=== PATIENT | male | born 1940 | race Caucasian/White ===

== ENCOUNTER 2022-01-20 07:11 | Outpatient (RCR) | payer MEDICARE, SELFPAY ==
[2021-10-25 13:18] VITALS: BMI 32.4
--- NOTE | 2021-11-23 12:41 | WPDWOUNDNOTE ---
Wound Care Note Date/Time: Backdated to date and time seen : 11/18/21 at 09:41 History: This is a 81 yo M with a history of diabetes mellitus, hyperlipidemia, chronic constipation, and a pilonidal cyst. Wound history: Jim was referred to our office on 09/06/21 at the request of Dr. Gilbert for evaluation of a pilonidal cyst. He underwent I&D of pilonidal cyst in the office at that appointment by Dr. Lagunas. He has continued to be followed in our office for wound care following the I&D. He was last seen by Dr. Lagunas on 10/18/21 in our office and has now been set up to be followed in the wound clinic. He presents today for his second visit to the wound clinic for a wound check. He denies any new complaints. He states he is avoiding trying to sit or have pressure to this area for an extended period of time. He seems to be very active and admits to being outside a lot lately in the heat doing yard work. He reports still applying gentamicin ointment and covering with mepilex transfer once daily. He has no new complaints and does not notice a change in his drainage. He denies any pain in this area unless he is sitting directly on the wound. He does report that he has been following his PCP for his diabetes and his Hgb A1C has recently gone up. In review of his chart, his hgb A1C was 7 in March and has gone up to 7.8 in July and October of this year. This past week, his PCP increased his metformin dose and he continues to take the same dose of Jardiance. Wound approximation: No Wound width: 2.8 cm Wound length: 1.5 cm Wound depth: 0..3 cm Drainage: Serosanguineous Surrounding tissue appearance: mildly pink but otherwise healthy, no erythema Tunneling: None Percentage granulation tissue: 100% Dressings: Gentamicin ointment applied to wound and covered with Mepilex transfer dressing Assessment and Plan Assessment and plan (1) Open wound of buttock: Qualifiers: Encounter type: subsequent encounter Laterality: right Qualified Code(s): S31.819D - Unspecified open wound of right buttock, subsequent encounter Code(s): S31.809A - Unspecified open wound of unspecified buttock, initial encounter Status: Acute Assessment and Plan: Open wound appears stable but is not healing as you would expect. There is no signs of infection. The entire wound bed appears to be granulating, but the wound is slightly larger than it was on his previous visit. He has been more active lately outside in the heat. We discussed proper wound care and trying to avoid friction and pressure to this area. If he is noticing more drainage, then trying to keep this dry with gauze over the transfer dressing that could be changed more frequently. Will continue current dressing changes with gentamicin and mepilex transfer being changed daily. Will have him follow-up in the wound clinic again in [address] Lagunas in 1 month. If there are any concerns sooner, please call. (2) Type 2 diabetes mellitus without complications: Qualifiers: Diabetes mellitus continuous churn buttermaker insulin use: without jail use Qualified Code(s): E11.9 - Type 2 diabetes mellitus without complications Code(s): E11.9 - Type 2 diabetes mellitus without complications Status: Acute Assessment and Plan: Follow-up with PCP for management. Review of Systems Review of Systems: All systems reviewed & are unremarkable except as noted in HPI and below Exam Const: General: comfortable and no acute distress Orientation/consciousness: patient oriented x3 Skin: Other: Open wound just below the coccyx and extending to the right of the gluteal crease with entire wound bed containing pink granulation tissue. There is a small area at the cephalad edge of the wound that shows some epithelialization, although the measurements are just slightly bigger than his last visit (1.5 x 2.8 x 0.3 cm on 11/23 and was 1.4 x 2 x 0.3 cm on 10/25). No purulent drainage or signs of infecti
--- NOTE | 2021-12-16 16:57 | P.PNWOUND_ITS ---
Wound Care Note Date/Time: 12/16/21 16:57 History: Patient underwent office incision and drainage of pilonidal cyst to 28 in 2021. There was abundant granulation tissue present in the wound bed but very little hair or foreign material. He is a diabetic. Wound history: Patient was on silver gel dressing changes at home and several office visits with failure of the wound to heal. He was referred to the Wound Clinic nurses and has been seen in the Wound Clinic since 10/25/2021. Initially the silver gel was changed to gentamicin ointment. Wound still was not healing and at his 12/02/2021 visit he was changed to mupirocin ointment with Mepilex transfer and dry gauze daily. Wound approximation: No Wound width: 2.1 cm Wound length: 1.5 cm Wound depth: 0.4 cm Drainage: Serosanguineous Surrounding tissue appearance: Macerated with erythema suggestive of candidiasis Tunneling: None Percentage granulation tissue: 100 Treatment/Procedures: Cleanse slough with a curette and wipe off exudate with peroxide Dressings: Treat periwound skin with Aloe [place] triple care antifungal cream. Continue mupirocin 2 wound with Mepilex transfer and dry gauze. Assessment and Plan Assessment and plan (1) Open wound of buttock: Qualifiers: Encounter type: subsequent encounter Laterality: right Qualified Code(s): S31.819D - Unspecified open wound of right buttock, subsequent encounter Code(s): S31.809A - Unspecified open wound of unspecified buttock, initial encounter Status: Acute Assessment and Plan: Continue mupirocin to wound and treat skin around wound with Mary vest a triple care antifungal cream. Recheck in wound clinic in 2 weeks. (2) Pilonidal cyst: Code(s): L05.91 - Pilonidal cyst without abscess Status: Acute Assessment and Plan: I&D 09/06/2021 with chronic wound resulting. (3) Type 2 diabetes mellitus without complications: Qualifiers: Diabetes mellitus senior living insulin use: without senior living use Qualified Code(s): E11.9 - Type 2 diabetes mellitus without complications Code(s): E11.9 - Type 2 diabetes mellitus without complications Status: Acute Review of Systems Review of Systems: All systems reviewed & are unremarkable except as noted in HPI and below (Wound care note) Exam Back/Spine/Pelvis: Sacrum: no erythema, no swelling, tenderness and other (Open wound as described above with macerated skin)
--- NOTE | 2022-01-20 14:40 | P.PNWOUND_ITS ---
Wound Care Note Date/Time: 01/20/22 08:40 History: Patient presented September 06 with drainage and some open areas on the back in the area of the tailbone. These were superficial open areas with cloudy drainage. They extended 2.8 cm to the right of midline. In the office that day , the overlying skin was excised and granulation tissue underneath was noted. The wound bed was treated with silver nitrate and dressed with silver gel. Initial impression was that this was a pilonidal cyst which was I indeed. Patient initially who was treated with silver gel and gauze. October 11 Mepilex transfer was added to the silver gel. Silver gel was changed to gentamicin and Mepilex daily on November 18. The wound continued to fail to heal and was started on mupirocin with Mepilex transfer and gauze daily starting December 02. Patient is diabetic but has been under reasonable control. Wound history: I&D as pilonidal cyst 09/06/2021. Wound has failed to heal. Currently treating with mupirocin to wound bed with Mepilex transfer and dry gauze daily since December 02. His periwound skin had some evidence of yeast and aloe [place] triple antibiotic fungal cream was started. This has gone on to heal and is no longer being used. Wound approximation: Yes Wound width: 2.8 cm Wound length: to 0.5 cm Wound depth: 0.6 cm Drainage: pink serosanguineous Surrounding tissue appearance: clean and dry Tunneling: none Percentage granulation tissue: 100 Treatment/Procedures: no procedures Dressings: continue mupirocin and Mepilex transfer with dry gauze daily. Assessment and Plan Assessment and plan (1) Open wound of buttock: Qualifiers: Encounter type: subsequent encounter Laterality: right Qualified Code(s): S31.819D - Unspecified open wound of right buttock, subsequent encounter Code(s): S31.809A - Unspecified open wound of unspecified buttock, initial encounter Status: Acute Assessment and Plan: wound initially thought to be a pilonidal cyst but has failed to heal despite multiple attempts at wound healing. I will go ahead and get a pelvic CT scan to evaluate for an underlying source of nonhealing. Other possibility is a neoplastic process. Will arrange outpatient incisional biopsy once the CT scan has been done. With these results, will redirect wound healing strategy as the new information would suggest. (2) Type 2 diabetes mellitus without complications: Qualifiers: Diabetes mellitus buttermaker continuous churn insulin use: without fdc use Qualified Code(s): E11.9 - Type 2 diabetes mellitus without complications Code(s): E11.9 - Type 2 diabetes mellitus without complications Status: Acute Assessment and Plan: Due to get a hemoglobin A1c at the end of January. Last 1 was in October and was 7.8. Review of Systems Review of Systems: All systems reviewed & are unremarkable except as noted in HPI and below ( Wound care note) Constitutional: Constitutional: Denies chills, Denies fever(s) and Denies headache(s) Exam Back/Spine/Pelvis: Coccyx: Other pelvic findings ( wound with granulation tissue but no evidence of healing. tender)
== END 2022-01-23 23:59 | disposition home or self-care (01) ==
LOC: ANHWOC 07:11
PROVIDERS: PCP Family Medicine; Visit Provider Surgery
DX: S31.819D Unspecified open wound of right buttock, subsequent encounter (principal)
CPT/HCPCS: 87070; 87205; 99212; 99213; A9270; G0463

== ENCOUNTER → 2022-01-26 12:56 | Outpatient (CLI) | payer MEDICARE, SELFPAY ==
--- NOTE | ~2022-01-26 | CT_ITS ---
CT OF PELVIS EXAMINATION: CT pelvis w con DATE: 01/26/2022 13:38 INDICATION: Nonhealing coccygeal wound. TECHNIQUE: Computed tomography (CT) of the pelvis was performed without intravenous contrast. Automat ed exposure control and iterative reconstruction technique were employed. The dose-length product was 672.40 mGy-cm. COMPARISON: None FINDINGS: Limitations: None Bones: The included osseous structures are within normal limits. There are no erosive or destructive bony lesions. Soft Tissues: Simple left renal cyst. Bilateral fat-containing inguinal hernias. Diffuse atherosclero tic calcification. Bladder wall thickening likely due to outlet compromise from prostatomegaly. Fluid: No significant fluid within the joint capsule or surrounding bursal spaces. IMPRESSION: No CT evidence of wound infection, soft tissue abscess, decubitus ulcer, or osteomyelitis. Reviewed, dictated and finalized at location K. IMPRESSION: No CT evidence of wound infection, soft tissue abscess, decubitus ulcer, or ost eomyelitis.
[2022-01-26 13:23] LABS: Estimated Glomerular Filt Rate > 60
== END ==
PROVIDERS: PCP Family Medicine; Visit Provider Surgery
DX: T81.89XA Other complications of procedures, not elsewhere classified, initial encounter (principal); K40.90 Unilateral inguinal hernia, without obstruction or gangrene, not specified as recurrent; N28.1 Cyst of kidney, acquired
CPT/HCPCS: 72193; Q9967

== ENCOUNTER 2022-01-31 11:21 | Outpatient (CLI) | payer MEDICARE, SELFPAY ==
--- NOTE | 2022-01-31 11:44 | ECG_ITS ---
Measurements Intervals Aspers Rate: 58 P: 90 NM: 181 QRS: -4 QRSD: 138 T: -3 QT: 457 QTc: 451 Interpretive Statements SINUS BRADYCARDIA VENTRICULAR PREMATURE COMPLEX RIGHT BUNDLE BRANCH BLOCK ABNORMAL ECG Electronically Signed On 01-31-2022 12:20:36 CDT by Russell Winston D.O.
[2022-01-31 12:18] LABS: Anion Gap 11 mmol/L (8-16); Blood Urea Nitrogen 17 mg/dL (9-20); Carbon Dioxide 25 mmol/L (22-30); Chloride 104 mmol/L (98-107); Estimated Glomerular Filt Rate > 60; Glucose 152 mg/dL (65-110); Potassium 4.8 mmol/L (3.4-5.0); Sodium 140 mmol/L (137-145)
== END 2022-01-31 11:22 | disposition home or self-care (01) ==
LOC: ANHSURGERY 11:26
PROVIDERS: Anesthesiology; PCP Family Medicine; Visit Provider Surgery
DX: Z01.818 Encounter for other preprocedural examination (principal); I10 Essential (primary) hypertension; R00.1 Bradycardia, unspecified; I45.10 Unspecified right bundle-branch block
CPT/HCPCS: 36415; 80048; 93005

== ENCOUNTER 2022-02-02 00:32 | Day surgery (SDC) | payer MEDICARE, SELFPAY ==
--- NOTE | 2022-01-27 12:25 | PC.NURSE ---
Report to the Outpatient Waiting Room, entrance under the green pavilion located off [facility], at time __1100 on date ___02/02/22____. OR Time: _1300 . - You and your visitor will be asked a series of questions to screen for COVID 19 for your protection. - Only one visitor is allowed at this time. - The patient visitor is requested to leave or wait in car when not with patient. - A mask is required within the hospital. Patients may have clear liquids (water, carbonated beverages, clear teas, apple juice) until 3 hours prior to surgery with a maximum of 20 ounces. - No food from midnight until time of surgery - Infants may have breast milk until 4 hours before surgery, infant formula 6 hours prior to surgery. - Children will be allowed to drink immediately following surgery. If applicable, please bring a bottle or sippy cup to assist with drinking. Juice, water, soda, and popsicles are readily available. For infants on formula, please bring formula the day of surgery. Pacifiers are allowed. Take the following medications with a SIP of water the morning of surgery: __AMLODIPINE,LEVOTHYROXINE,METOPROLOL Medications to discontinue per physician NONE Date to take last dose Please no make-up, nail malay, hairspray, perfume, deodorant, or body powder the day of surgery. No jewelry (including any body piercings) or valuables the day of surgery, leave them at home. Please take a shower or bath the night before, or the morning of, surgery with an antibacterial soap. Wear comfortable, loose fitting clothing. Children are encouraged to wear pajamas. - Jewelry must be removed prior to entering the operating room. Rings and piercings that are not removed may be cut off. - The hospital will not accept responsibility for valuables. - Please leave all valuables, including medications, at home the day of surgery. If you are going home after surgery, a licensed mail truck driver must drive you home. - NO public transportation without another adult. - We recommend that an adult stay with you for 24 hours following discharge. - We also recommend that you do not drive, make important decision, drink alcoholic beverages, or take any drugs that were not prescribed by your health care provider for at least 24 hours after your discharge time. For Pediatric surgeries, we recommend two adults accompany the child home (only one inside the building at this time). Follow any additional instructions given to you from your surgeon. If you or anyone in your household have experienced Covid symptoms in the past week, please notify your surgeon or the nurse liaison at the phone number below for possible testing. Telephone instructions given to __PATIENT and asked if any additional questions and then verbalized understanding. Patient advised to call surgeon office or pre surgery nurse liaison [phone] if any additional questions.
[2022-01-27 12:32] VITALS: BMI 29.7
--- NOTE | 2022-02-01 10:30 | PM.SD2 ---
Same Day Admit/Disch: HPI History of Present Illness Chief complaint: non healing coccygeal wound Narrative: Jim Moralez is a 82 year old diabetic man who presented at the end of August with what looked like a pilonidal cyst. He had some chronic inflammation and open wounds in the upper gluteal crease extending on to the right buttocks. This was incised and drained in the office. Since then, this wound has failed to heal despite multiple wound therapies. Initially he was seen in the office. He was then referred to and seen in follow-up in the Wound Clinic. There has been no evidence of the wound healing. He recently had a CT scan of the pelvis which showed no underlying bone infection or deeper infectious process. He is taken to surgery at this time for incisional biopsy of this chronic wound to rule out malignancy. [facility] Past Medical History Medical History (Updated 02/02/22 @ 12:20 by Addy Lagunas MD) BMI 31.0-31.9,adult BMI 32.0-32.9,adult BMI greater than 30 Chronic idiopathic constipation Diabetes High cholesterol Jock itch Need for vaccination Polyuria Surgical History Surgical History History of incision and drainage i&d pilonidal cyst 09/06/21 Family History Family History Sibling Carcinoma of colon Family history of diabetes mellitus in first degree relative Family history of coronary artery disease Family history of malignant neoplasm of breast in first degree relative Father Family history of coronary artery disease Other Diabetes mellitus Family history of arthritis Family history of congenital heart disease Family history of heart disease in male family member before age 55 Family history of malignant neoplasm Social History Social History Smoking packs per day: 2.5 Smoking cigarettes per day: 50.0 Years smoked: 10 Smoking pack-years: 25.00 Tobacco type: cigarettes Second hand tobacco smoke exposure: Yes Smoking end date: 07/10/86 Alcohol intake: current Drinks per week: 1 Alcohol use details: socially Substance use: never Substance use type: does not use Living arrangements: with family Additional living arrangements comments: lives with Spiritual care concerns: No Same Day Admit/Disch: Med Pre-admit Medications Home Medications Medication Instructions Recorded Confirmed Type amlodipine 10 mg tablet 10 mg PO DAILY 07/24/19 01/27/22 History acetaminophen 500 mg tablet 500 mg PO Q6H pain #30 tabs 04/06/21 01/27/22 Rx metoprolol succinate 50 mg 50 mg PO DAILY #90 tabs 06/20/21 01/27/22 Rx tablet,extended release 24 hr rosuvastatin 40 mg tablet 40 mg PO DAILY #90 tabs 06/20/21 01/27/22 Rx aspirin 81 mg tablet,delayed 162 mg PO DAILY 08/03/21 01/27/22 History release (Adult Low Dose Aspirin) nitroglycerin 0.4 mg sublingual 0.4 mg sublingual Q5M PRN chest 08/03/21 01/27/22 Rx tablet pain #25 tabs meloxicam 15 mg tablet See Rx Instructions .Route 12/22/21 01/27/22 Rx .COMPLEX #90 tabs empagliflozin 10 mg tablet See Rx Instructions .Route 01/17/22 01/27/22 Rx (Jardiance) .COMPLEX #90 tabs metformin 500 mg tablet,extended 2,000 mg PO QAM 01/27/22 01/27/22 History release 24 hr levothyroxine 75 mcg tablet 75 mcg PO DAILY #90 tabs 02/01/22 02/02/22 Rx oxycodone-acetaminophen 5 mg-325 0.5 - 1 tablet PO Q6H PRN pain #10 02/02/22 Rx mg tablet tabs Exam Const: General: comfortable, no acute distress, alert and awake HENMT: Head: normocephalic and atraumatic Mouth: Yes Normal oral and palatal mucosa present Eyes: Conjunctivae: conjunctivae normal Pupils: Equal, round and reactive pupils present EOM: EOMs intact bilaterally Neck: Neck: normal visual inspection, no lymphadenopathy and nontender Resp: Effort & Inspection: normal respiratory effort Ausculta
[2022-02-02 10:12] VITALS: BP 144/61; PULSE 61; RESP 20; TEMP 36.3; O2SAT 99
[2022-02-02] MEDS: LACTATED RINGERS 1,000 ML 30 ML IV CONT (10:32)
[2022-02-02 10:35] LABS: Glucose Point of Care 151 mg/dl (65-105)
--- NOTE | 2022-02-02 10:51 | WPDANESEPPF ---
Anes - Initial Pre Proc Eval Procedure: Operation Date: 02/02/22 12:00 Proposed Procedures p Incisional Biopsy of Non Healing Sacral wound - Addy Lagunas MD Date/Time: 02/02/22 10:51 Surgeon: Addy Lagunas MD Pre Op Diagnosis: non healing coccygeal wound Patient Data Age: 82 Gender: M Height: 1.85 m Weight: 106.4 kg Last Vital Signs Temp 36.3 C L 02/02/22 10:12 Pulse 61 02/02/22 10:12 Resp 20 02/02/22 10:12 BP 144/61 H 02/02/22 10:12 Pulse Ox 99 02/02/22 10:12 O2 Del Method Room Air 02/02/22 10:12 Allergies Allergy/AdvReac Type Severity Reaction Status Date / Time finasteride Allergy Intermediate Unknown Verified 02/02/22 10:18 JOSHUA Inhibitors Allergy Unknown Cough Verified 02/02/22 10:18 ARB-Angiotensin Receptor Allergy Unknown Cough Verified 02/02/22 10:18 Antagonist lisinopril Allergy Unknown Cough Verified 02/02/22 10:18 Home Medications Medication Instructions Recorded Confirmed Type amlodipine 10 mg tablet 10 mg PO DAILY 07/24/19 01/27/22 History acetaminophen 500 mg tablet 500 mg PO Q6H pain #30 tabs 04/06/21 01/27/22 Rx metoprolol succinate 50 mg 50 mg PO DAILY #90 tabs 06/20/21 01/27/22 Rx tablet,extended release 24 hr rosuvastatin 40 mg tablet 40 mg PO DAILY #90 tabs 06/20/21 01/27/22 Rx aspirin 81 mg tablet,delayed 162 mg PO DAILY 08/03/21 01/27/22 History release (Adult Low Dose Aspirin) nitroglycerin 0.4 mg sublingual 0.4 mg sublingual Q5M PRN chest 08/03/21 01/27/22 Rx tablet pain #25 tabs meloxicam 15 mg tablet See Rx Instructions .Route 12/22/21 01/27/22 Rx .COMPLEX #90 tabs empagliflozin 10 mg tablet See Rx Instructions .Route 01/17/22 01/27/22 Rx (Jardiance) .COMPLEX #90 tabs metformin 500 mg tablet,extended 2,000 mg PO QAM 01/27/22 01/27/22 History release 24 hr levothyroxine 75 mcg tablet 75 mcg PO DAILY #90 tabs 02/01/22 02/02/22 Rx Laboratory Tests 02/02/22 10:33 POC Capillary Glucose 151 mg/dl H mg/dl (65-105) Patient hx anesthesia problems: none Family hx anesthesia problems: none Results Review: All pre-operative results and documents have been reviewed as part of the pre-operative evaluation. [facility] Past Medical History Medical History BMI 31.0-31.9,adult BMI 32.0-32.9,adult BMI greater than 30 Chronic idiopathic constipation Diabetes High cholesterol Jock itch Need for vaccination Pilonidal abscess Polyuria Surgical History Surgical History History of incision and drainage i&d pilonidal cyst 09/06/21 Family History Family History Sibling Carcinoma of colon Family history of diabetes mellitus in first degree relative Family history of coronary artery disease Family history of malignant neoplasm of breast in first degree relative Father Family history of coronary artery disease Other Diabetes mellitus Family history of arthritis Family history of congenital heart disease Family history of heart disease in male family member before age 55 Family history of malignant neoplasm Social History Social History Smoking packs per day: 2.5 Smoking cigarettes per day: 50.0 Years smoked: 10 Smoking pack-years: 25.00 Tobacco type: cigarettes Second hand tobacco smoke exposure: Yes Smoking end date: 07/10/86 Alcohol intake: current Drinks per week: 1 Alcohol use details: socially Substance use: never Substance use type: does not use Living arrangements: with family Additional living arrangements comments: lives with Spiritual care concerns: No Anes - Eval Final PreProcedure Day of Procedure 02/02/22 10:51 Patient weight: obese Heart: regular rate and rhythm Lungs: clear to auscultation Airway: Mallampati scale class II Neurolo
--- NOTE | 2022-02-02 11:27 | WPDHPUPDATE1 ---
History and Physical Update Update Date/Time: 02/02/22 11:27 History and Physical has been reviewed, including an updated exam of the patient. There are NO changes in the patient's condition. Risks, benefits, and alternatives have been discussed and questions answered. Patient agrees to proceed with procedure.
[2022-02-02] MEDS: ceFAZolin 2 GM/D5W 50 ML 2 GM/50 ML BAG IVPB (11:31)
[2022-02-02] MEDS: BUPIVACAINE/EPINEPHRINE 0.25% 50 ML VIAL 20 ML INFILTRATE (11:57)
[2022-02-02 12:09] VITALS: BP 119/59; PULSE 53; RESP 16; O2SAT 96
--- NOTE | 2022-02-02 12:09 | W.PM.PROC2 ---
Procedure Note - Detailed Date of Procedure 02/02/22 Pre-op Diagnosis non healing wound upper gluteal crease Post-op Diagnosis Same Procedure Performed Incisional biopsies nonhealing wound buttocks Surgeon Addy Lagunas MD Senior Bi Architect Dina Copeland COMPLIANCE CONSULTANT Anesthesia General (G IV S) and Local (0.25% Marcaine with epinephrine) Indications Patient is an 82-year-old man who presented at the end of August of this year with what appeared to be a pilonidal cyst in the upper gluteal crease. It was fairly superficial. Incision and drainage was done in the office. He was seen multiple times in the office thereafter. Wound clinic nurses were then consulted and he was seen multiple times in the wound clinic with different therapies given. The wound has failed to heal at all. He had a CT scan of the pelvis recently which showed no evidence of a chronic underlying infection or osteomyelitis. He is taken to surgery now for incisional biopsy. Findings Open wound upper gluteal crease extending on to the right buttocks approximately 5 by 2 cm. Description of Procedure Patient was taken to surgery and anesthesia was introduced. He was placed in left lateral decubitus position such that the open wound was exposed. Prep and drape was carried out. Local anesthesia was infiltrated throughout the area of the wound. To wedge-type excisions were made 1 lateral to the midline on the patient's left side. One was made on the right side as well. This included skin and wound and went to the subcutaneous tissue in depth. In addition 2 punch biopsies were taken directly from the wound and sent as well with the incisional biopsies. The wound was remarkably hemostatic. A little bit of cautery was used. Wound was dressed with Xeroform gauze, fluffs and Medipore tape. Estimated Blood Loss -2 Drains No Packing No Pathology Yes (Multiple incisional biopsies) Complications No immediate complications Condition Stable Disposition Same day [facility] Billing Surgery - Charge Forward: Surgery Billing (Incisional biopsy nonhealing wound of the trunk/buttocks)
[2022-02-02 12:21] LABS: Glucose Point of Care 113 mg/dl (65-105)
[2022-02-02 12:43] VITALS: BP 128/51; PULSE 42; RESP 16; O2SAT 96
[2022-02-02 13:10] VITALS: BP 138/54; PULSE 44; RESP 16
== END 2022-02-02 13:20 | disposition home or self-care (01) ==
PROVIDERS: PCP Family Medicine; Visit Provider Surgery
PROC: (CPT 11106; principal; 2022-02-02 12:00)
DX: S31.819A Unspecified open wound of right buttock, initial encounter (principal); X58.XXXA Exposure to other specified factors, initial encounter; E11.9 Type 2 diabetes mellitus without complications; E78.00 Pure hypercholesterolemia, unspecified; K59.04 Chronic idiopathic constipation; Z87.891 Personal history of nicotine dependence; Z79.82 Long term (current) use of aspirin; Z79.84 Long term (current) use of oral hypoglycemic drugs; E66.9 Obesity, unspecified; Z68.30 Body mass index [BMI] 30.0-30.9, adult
CPT/HCPCS: 11106; 11107; 36415; 80048; 82948; 88305; 93005; A9270; J0690; J2704; J3010; J7120

== ENCOUNTER 2022-03-01 01:04 | Day surgery (SDC) | payer MEDICARE, SELFPAY ==
--- NOTE | 2022-02-28 09:36 | PC.NURSE ---
Report to the Outpatient Waiting Room, entrance under the green pavilion located off [facility], at time ___1230 PM____ on date _03/01/22 . OR Time: __1430 . - You and your visitor will be asked to self-screen and do not enter if you have any COVID symptoms. - Only one visitor and NO children visitors are allowed at this time. - The patient visitor is requested to leave or wait in car when not with patient due to restrictions. - A mask is required within the hospital. Patients may have clear liquids (water, carbonated beverages, clear teas, apple juice) until 3 hours prior to surgery with a maximum of 20 ounces. - No food from midnight until time of surgery - Infants may have breast milk until 4 hours before surgery, formula 6 hours prior to surgery. - Children will be allowed to drink immediately following surgery. If applicable, please bring a bottle or sippy cup to assist with drinking. Juice, water, soda, and popsicles are readily available. For infants on formula, please bring formula the day of surgery. Pacifiers are allowed. Take the following medications with a SIP of water the morning of surgery: ____AMLODIPINE,LEVOTHYROXINE,METOPROLOL Medications to discontinue per physician ___PT STATES ASPIRIN LAST DOSE 02/24/22 _PER DR TORRE Date to take last dose Please no make-up, nail uruguayan, hairspray, perfume, deodorant, or body powder the day of surgery. No jewelry (including any body piercings) or valuables the day of surgery, leave them at home. Please take a shower or bath the night before, or the morning of, surgery with an antibacterial soap. Wear comfortable, loose fitting clothing. Children are encouraged to wear pajamas. - Jewelry must be removed prior to entering the operating room. Rings and piercings that are not removed may be cut off. - The hospital will not accept responsibility for valuables. - Please leave all valuables, including medications, at home the day of surgery. If you are going home after surgery, a licensed chassis driver must drive you home. - NO public transportation without another adult. - We recommend that an adult stay with you for 24 hours following discharge. - We also recommend that you do not drive, make important decision, drink alcoholic beverages, or take any drugs that were not prescribed by your health care provider for at least 24 hours after your discharge time. For Pediatric surgeries, we recommend two adults accompany the child home (only one inside the building at this time). Follow any additional instructions given to you from your surgeon. If you or anyone in your household have experienced Covid symptoms in the past week, please notify your surgeon or the nurse liaison at the phone number below for possible testing. Telephone instructions given to _PATIENT and asked if any additional questions and then verbalized understanding. Patient advised to call surgeon office or pre surgery nurse liaison [phone] if any additional questions.
[2022-02-28 09:43] VITALS: BMI 30.3
[2022-03-01] VITALS (7 sets, daily range): BP systolic 118–151; BP diastolic 39–68; PULSE 44–60; RESP 12–18; TEMP 36.2–36.5; O2SAT 97–100
[2022-03-01] MEDS: LACTATED RINGERS 1,000 ML 30 ML IV CONT (13:05)
[2022-03-01 13:13] LABS: Glucose Point of Care 139 mg/dl (65-105)
--- NOTE | 2022-03-01 13:27 | WPDANESEPPF ---
Anes - Initial Pre Proc Eval Procedure: Operation Date: 03/01/22 14:30 Proposed Procedures p Excision and Closure Midline Buttock Wound with Wound Vac Placement - Joshua Crandall MD Date/Time: 03/01/22 13:27 Surgeon: Joshua Crandall MD Pre Op Diagnosis: midline buttock wound Patient Data Age: 82 Gender: M Height: 1.85 m Weight: 108.4 kg Last Vital Signs Temp 36.5 C 03/01/22 13:00 Pulse 60 03/01/22 13:00 Resp 18 03/01/22 13:00 BP 124/68 03/01/22 13:00 Pulse Ox 98 03/01/22 13:00 O2 Del Method Room Air 03/01/22 13:00 Allergies Allergy/AdvReac Type Severity Reaction Status Date / Time finasteride Allergy Intermediate Hives Verified 03/01/22 12:40 JOSHUA Inhibitors Allergy Unknown Cough Verified 03/01/22 12:40 ARB-Angiotensin Receptor Allergy Unknown Cough Verified 03/01/22 12:40 Antagonist lisinopril Allergy Unknown Cough Verified 03/01/22 12:40 Home Medications Medication Instructions Recorded Confirmed Type amlodipine 10 mg tablet 10 mg PO DAILY 07/24/19 03/01/22 History acetaminophen 500 mg tablet 500 mg PO Q6H pain #30 tabs 04/06/21 03/01/22 Rx metoprolol succinate 50 mg 50 mg PO DAILY #90 tabs 06/20/21 03/01/22 Rx tablet,extended release 24 hr rosuvastatin 40 mg tablet 40 mg PO DAILY #90 tabs 06/20/21 03/01/22 Rx aspirin 81 mg tablet,delayed 162 mg PO DAILY 08/03/21 03/01/22 History release (Adult Low Dose Aspirin) nitroglycerin 0.4 mg sublingual 0.4 mg sublingual Q5M PRN chest 08/03/21 03/01/22 Rx tablet pain #25 tabs meloxicam 15 mg tablet See Rx Instructions .Route 12/22/21 03/01/22 Rx .COMPLEX #90 tabs metformin 500 mg tablet,extended 2,000 mg PO QAM 01/27/22 03/01/22 History release 24 hr levothyroxine 75 mcg tablet 75 mcg PO DAILY #90 tabs 02/01/22 03/01/22 Rx doxazosin 2 mg tablet 2 mg PO QHS #30 tabs 02/03/22 03/01/22 Rx empagliflozin 25 mg tablet 25 mg PO DAILY #90 tabs 02/03/22 03/01/22 Rx (Jardiance) Laboratory Tests 03/01/22 13:10 POC Capillary Glucose 139 mg/dl H mg/dl (65-105) Patient hx anesthesia problems: none Family hx anesthesia problems: none Results Review: All pre-operative results and documents have been reviewed as part of the pre-operative evaluation. [facility] Past Medical History Medical History (Updated 03/01/22 @ 13:30 by Kennedy Lim DO) BMI 31.0-31.9,adult BMI 32.0-32.9,adult BMI greater than 30 CAD (coronary artery disease) Chronic idiopathic constipation Diabetes High cholesterol Jock itch Leg edema Need for vaccination MIRYAM on CPAP Polyuria Surgical History Surgical History (Updated 03/01/22 @ 13:30 by Kennedy Lim DO) History of biopsy Incisional biopsies nonhealing wound buttocks 02/02/2022 History of incision and drainage i&d pilonidal cyst 09/06/21 Hx of CABG Family History Family History Sibling Carcinoma of colon Family history of diabetes mellitus in first degree relative Family history of coronary artery disease Family history of malignant neoplasm of breast in first degree relative Father Family history of coronary artery disease Other Diabetes mellitus Family history of arthritis Family history of congenital heart disease Family history of heart disease in male family member before age 55 Family history of malignant neoplasm Social History Social History Smoking packs per day: 2.5 Smoking cigarettes per day: 50.0 Years smoked: 10 Smoking pack-years: 25.00 Smoking status: Former smoker Tobacco type: cigarettes Second hand tobacco smoke exposure: Yes Smoking end date: 07/10/77 Alcohol intake: current Drinks per week: 1 Alcohol use details: socially Substance use: never Substance use type: does not use Living arrangements: with family Additional living arrangements comments: lives with
--- NOTE | 2022-03-01 14:49 | W.PM.PROC2 ---
Procedure Note - Detailed Date of Procedure 03/01/22 Pre-op Diagnosis midline gluteal wound (sacral) Post-op Diagnosis Same Procedure Performed Sharp surgical excision of midline gluteal wound 7 cm with wide undermining and layered closure. Surgeon Joshua Crandall MD Anesthesia General Findings Subcutaneous wound. Able to completely remove to good viable tissue. No signs of infection. No evidence of sinus tracks or other etiology Able to completely close. Description of Procedure Preoperatively the risks, benefits, alternatives were discussed in extensive detail. I want him to be very realistic about the risks involved as well as expectations. He understands this may not resolve his wound and he may need additional procedures. All questions were answered to his satisfaction today. He voiced a clear understanding along with his . Consent obtained. Patient was taken to the operating room. Anesthesia provided by anesthesiology. He was placed in a prone position and prepped and draped in a standard sterile fashion. Surgical time-out was taken. 1% lidocaine 0.25% Marcaine with epinephrine was used anesthetize locally. I sharply excised the entire wound and this was sent to pathology. Copious irrigated with saline solution. Verified strict hemostasis. I widely undermined for closure. This was closed in many layers to obliterate all space with 2-0 Vicryl, 3-0 Monocryl, and vertical mattress skin 3-0 Chromic. He was taken to the PACU without difficulty. All instrument sponge counts were correct at the end of the case. Estimated Blood Loss 10 Drains No Packing No Pathology Yes (Sacral / Gluteal wound) Complications No immediate complications Condition Stable Disposition PACU
--- NOTE | 2022-03-01 14:50 | WPDHPUPDATE1 ---
History and Physical Update Update Date/Time: 03/01/22 14:50 History and Physical has been reviewed, including an updated exam of the patient. There are NO changes in the patient's condition. Risks, benefits, and alternatives have been discussed and questions answered. Patient agrees to proceed with procedure.
[2022-03-01] MEDS: ceFAZolin 2 GM/D5W 50 ML 2 GM/50 ML BAG IVPB (15:07)
[2022-03-01] MEDS: BUPIVACAINE HCL 0.25% PF 30 ML VIAL INFILTRATE (15:37)
[2022-03-01] MEDS: LIDO 1%/EPINEPHRINE 1:100,000 50 ML VIAL 30 ML INFILTRATE (15:37)
[2022-03-01 16:21] LABS: Glucose Point of Care 113 mg/dl (65-105)
== END 2022-03-01 17:25 | disposition home or self-care (01) ==
PROVIDERS: PCP Family Medicine; Visit Provider Surgery Plastic and Reconstructive Surgery
PROC: (CPT 11042; principal; 2022-03-01 14:30)
DX: S31.000A Unspecified open wound of lower back and pelvis without penetration into retroperitoneum, initial encounter (principal); E11.9 Type 2 diabetes mellitus without complications; I25.10 Atherosclerotic heart disease of native coronary artery without angina pectoris; E03.9 Hypothyroidism, unspecified; E78.5 Hyperlipidemia, unspecified
CPT/HCPCS: 11042; 82948; 88304; A9270; J0330; J0690; J2405; J2704; J3010; J7120

== ENCOUNTER 2022-03-30 07:18 | Outpatient (RCR) | payer MEDICARE, SELFPAY ==
[2022-01-24 00:05] VITALS: BMI 32.4
--- NOTE | 2022-02-24 09:40 | WPDCN ---
Assessment and Plan Assessment and plan (1) Skin ulcer: Code(s): L98.499 - Non-pressure chronic ulcer of skin of other sites with unspecified severity Status: Acute Assessment and Plan: He does have gluteal wound. Etiology is unclear. He would like proceed with surgical excision and possible closure. We will also precertify the VAC as an option post procedure. Today's visit including review of recards, patient evaluation, and charting was 45 minutes. Today we had a lengthy discussion about his options. Went over the risks, benefits, alternatives of each. This was a lengthy open-ended conversation reviewing his medical history, previous treatments, pathology and imaging results. After hearing all his options he would like proceed as above. He understands this will make the wound worse and he could have persistence difficult the with healing and may need additional procedures. Went over all his options. Answered every one of his questions. He voiced a clear understanding. He would like proceed. HPI Data of Consult Date/Time: 02/24/22 12:00 Requesting Physician: Addy Lagunas MD Primary Care Provider: Willard Gilbert MD Consult Narrative Reason for consult: Gluteal wound Narrative: Jim Moralez is a 82 year old male Who I was asked by Dr. Lagunas to seafood consultation. Since approximately July of 2021 he has had a draining wound from his superior gluteal cleft. He was seen by Dr. Lagunas 08/17/2021. At that point he had been on 2 weeks of antibiotics and I&D was completed. He was continue to follow in wound care and has been treated by several different methods including silver gel, gentamicin ointment, mupirocin with no improvement in the wound. 01/06/2022 cultures were taken. RESULT: Growth of skin valentino (note: Growth does not include S. aureus, beta-hemolytic Streptococci or P. aeruginosa). 01/26/[address] IMPRESSION: No CT evidence of wound infection, soft tissue abscess, decubitus ulcer, or osteomyelitis. 02/02/2022 he was taken to the operating room with Dr. Lagunas. Incisional biopsies were completed. Pathology returned as Final Diagnosis: Sacral wound, incisional biopsy: Benign skin with ulcer. Twelve weeks after the procedure he continues to have persistence of the open wound. She does have a history of tobacco use. No active nicotine use however. He states he feels well. No fevers or chills. No nausea vomiting. No shortness of breath. No chest pain. He has had minimal drainage from this. He believes his last colonoscopy was in 2019. He does not know what caused this event. He knows his blood sugars were less controlled in the currently are. Review of Systems Review of Systems: All systems reviewed & are unremarkable except as noted in HPI and below PMFSH Past Medical History Medical History (Updated 02/14/22 @ 13:18 by Santa Jason) BMI 31.0-31.9,adult BMI 32.0-32.9,adult BMI greater than 30 Chronic idiopathic constipation Diabetes High cholesterol Jock itch Leg edema Need for vaccination Polyuria Surgical History Surgical History (Updated 02/14/22 @ 13:07 by [facility] Dorothy) History of biopsy Incisional biopsies nonhealing wound buttocks 02/02/2022 History of incision and drainage i&d pilonidal cyst 09/06/21 Family History Family History Sibling Carcinoma of colon Family history of diabetes mellitus in first degree relative Family history of coronary artery disease Family history of malignant neoplasm of breast in first degree relative Father Family history of coronary artery disease Other Diabetes mellitus Family history of arthritis Family history of congenital heart disease Family history of heart disease in male family member before age 55 Family history of malignant neoplasm Social History Social History (Reviewed 02/14/22 @ 1
--- NOTE | 2022-03-16 07:48 | WPDWOUNDNOTE ---
Wound Care Note Date/Time: 03/16/22 07:48 History: Doing well after excisional debridement of upper gluteal crease / buttocks wound. He is doing very well. No f/c. No n/v. Doing a dry dressing with no concerns. Final Diagnosis ?sacral wound?, biopsy: -? Benign skin with ulcer Assessment and Plan Assessment and plan (1) Skin ulcer: Code(s): L98.499 - Non-pressure chronic ulcer of skin of other sites with unspecified severity Status: Acute Assessment and Plan: Overall healing well. Continue dry dressing. Wash with soap and water. F/U 2 weeks. Call with any questions or concerns. (2) Type 2 diabetes mellitus without complications: Qualifiers: Diabetes mellitus penitentiary insulin use: without penitentiary use Qualified Code(s): E11.9 - Type 2 diabetes mellitus without complications Code(s): E11.9 - Type 2 diabetes mellitus without complications Status: Acute Assessment and Plan: Continue good glycemic control. Review of Systems Review of Systems: All systems reviewed & are unremarkable except as noted in HPI and below Exam Narrative: Gluteal wound healing well. Central small wound with no signs of infection, no hematoma, no seroma. See wound care measurements.
--- NOTE | 2022-03-30 10:53 | WPDPN ---
Progress Note: A&P Assessment and Plan (1) Skin ulcer: Code(s): L98.499 - Non-pressure chronic ulcer of skin of other sites with unspecified severity Status: Acute Assessment and Plan: Wound is following similar course of that treated by Dr. Lagunas. After lengthy discussion of options today will refer to [facility]-rectal surgery for evaluation. He has selected [facility]. Will arrange. Continue local wound care. (2) Type 2 diabetes mellitus without complications: Qualifiers: Diabetes mellitus intermediate insulin use: without intermediate use Qualified Code(s): E11.9 - Type 2 diabetes mellitus without complications Code(s): E11.9 - Type 2 diabetes mellitus without complications Status: Acute Subjective Date/time seen: 03/30/22 10:53 Interval history: History: Since approximately July of 2021 he has had a draining wound from his superior gluteal cleft. He was seen by Dr. Lagunas 08/17/2021. At that point he had been on 2 weeks of antibiotics and I&D was completed. He was continue to follow in wound care and has been treated by several different methods including silver gel, gentamicin ointment, mupirocin with no improvement in the wound. 01/06/2022 cultures were taken. RESULT: Growth of skin valentino (note: Growth does not include S.aureus, beta-hemolytic Streptococci or P. aeruginosa). 01/26/[address] IMPRESSION: No CT evidence of wound infection, soft tissue abscess, decubitus ulcer, or osteomyelitis. 02/02/2022 he was taken to the operating room with Dr. Lagunas. Incisional biopsies were completed. Pathology returned as Final Diagnosis: Sacral wound, incisional biopsy: Benign skin with ulcer. Twelve weeks after the procedure he continues to have persistence of the open wound. 03/01/2022 I completed excisional debridement / closure. Able to completely remove to good viable tissue. No signs of infection. No evidence of sinus tracks or other etiology. Pathology: Final Diagnosis- ?sacral wound?, biopsy: - Benign skin with ulcer He does have a history of tobacco use. No active nicotine use however. Today: He is being seen in wound care today. The wound has opened where previously repaired as well as a new area on his right buttocks a small distance from previously treated wound. He states he feels well. No f/c. No n/v. No other complaints. Exam Narrative: Gluteal cleft open wound with good granulation. No signs of infection. No hematoma. No seroma. Right to this gluteal sinus tract appears to be forming. See wound care note for measurements. Objective Data Meds/Results Medications: Active Medications Generic Name Dose Route Start Last Admin Trade Name Freq PRN Reason Stop Dose Admin Gentamicin Sulfate 1 applic 02/24/22 11:00 Gentamicin Sulfate 0.1% Oint 15 Gm Tube TOPICAL 05/27/22 23:55 PRN PRN Wound Care
== END 2022-05-16 08:08 | disposition home or self-care (01) ==
LOC: ANHWOC 07:18
PROVIDERS: PCP Family Medicine; Referring Provider Surgery Plastic and Reconstructive Surgery; Visit Provider Surgery Plastic and Reconstructive Surgery
DX: S31.819D Unspecified open wound of right buttock, subsequent encounter (principal)
CPT/HCPCS: 99212; 99213; A9270; G0463

== ENCOUNTER 2023-05-27 09:46 | Outpatient (CLI) | payer MEDICARE, SELFPAY ==
--- NOTE | ~2023-05-27 | MR_ITS ---
EXAMINATION: MR brain/brain stem wo con DATE: 05/27/2023 10:53 INDICATION: Other amnesia. TECHNIQUE: Magnetic resonance imaging (MRI) of the brain and brainstem was performed without intraven ous contrast. COMPARISON: None. FINDINGS: There is no intracranial hemorrhage, acute infarction, or abnormal intracranial mass lesion . There are scattered areas of nonspecific increased T2-weighted signal intensity in the cerebral whi te matter. The ventricles are normal in size. The paranasal sinuses are clear. There is a left mastoi d effusion. The orbits are normal. IMPRESSION: 1. Moderate nonspecific cerebral white matter disease, which likely represents chronic small vessel i schemic disease. Reviewed, dictated and finalized at location A. NT REPORTING ASSOCIATE IMPRESSION: 1. Moderate nonspecific cerebral white matter disease, which likely represents chronic small vessel ischemic disease.
== END 2023-05-27 09:47 | disposition home or self-care (01) ==
PROVIDERS: PCP Family Medicine; Visit Provider Family Medicine
DX: R41.3 Other amnesia (principal); R90.82 White matter disease, unspecified
CPT/HCPCS: 70551

== ENCOUNTER 2023-07-13 15:08 | Outpatient (CLI) | payer MEDICARE, SELFPAY ==
--- NOTE | ~2023-07-13 | XR_ITS ---
XR chest 2V DATE: 07/13/2023 15:39 INDICATION: Preoperative evaluation. Atherosclerotic heart disease. TECHNIQUE: 2 views COMPARISON: 05/27/2015 2 view chest FINDINGS: Status post sternotomy. Normal heart size. Aortic calcification and minimal tortuosity. No hilar or mediastinal enlargement. There is old pulmonary granulomatous disease. No pulmonary infiltrate or consolidation, pleural effus ion or pulmonary vascular congestion or pneumothorax is detected. Degenerative spurring of the thoracic spine. IMPRESSION: No active cardiac pulmonary disease Aortic calcification Status post sternotomy No active pulmonary disease Reviewed, dictated and finalized at location L. STERED CLINICAL DIETITIAN
--- NOTE | 2023-07-13 15:53 | ECG_ITS ---
Measurements Intervals [place] Rate: 73 P: 81 NJ: 171 QRS: -3 QRSD: 137 T: 30 QT: 428 QTc: 473 Interpretive Statements SINUS RHYTHM WITH SINUS ARRHYTHMIA RIGHT BUNDLE BRANCH BLOCK ABNORMAL ECG COMPARED TO ECG 01/31/2022 11:57:47 SINUS RHYTHM NOW PRESENT SINUS ARRHYTHMIA NOW PRESENT Electronically Signed On 07-13-2023 16:06:30 BUSINESS TEAM LEADER by Russell Winston D.O.
[2023-07-13 16:52] LABS: Hematocrit 43.5 % (42.0-52.0); Hemoglobin 14.2 g/dL (14.0-18.0); Mean Corpuscular HGB Conc 32.6 g/dl (32-36); Mean Corpuscular Hemoglobin 28.4 pg (26-34); Mean Platelet Volume 9.6 fl (7.4-10.4); Platelet Count Result 380 k/mm3 (150-375); Red Cell Distribution Width 13.2 % (11.5-14.5); White Blood Count 12.5 K/mm3 (4.5-10.0)
[2023-07-13 20:45] LABS: Anion Gap 13 mmol/L (8-16); Blood Urea Nitrogen 18 mg/dL (9-20); Calcium 9.8 mg/dL (8.4-10.2); Carbon Dioxide 27 mmol/L (22-30); Chloride 101 mmol/L (98-107); Estimated Glomerular Filt Rate > 60; Glucose 251 mg/dL (65-110); Potassium 4.1 mmol/L (3.4-5.0); Sodium 141 mmol/L (137-145)
[2023-07-13 21:56] LABS: Free T4 Free Thyroxine 1.15 ng/mL (0.78-2.19)
== END 2023-07-13 15:09 | disposition home or self-care (01) ==
PROVIDERS: PCP Family Medicine; Visit Provider Family Medicine
DX: I25.10 Atherosclerotic heart disease of native coronary artery without angina pectoris (principal); I70.0 Atherosclerosis of aorta; I45.10 Unspecified right bundle-branch block; Z95.1 Presence of aortocoronary bypass graft; R94.31 Abnormal electrocardiogram [ECG] [EKG]; I10 Essential (primary) hypertension; E03.9 Hypothyroidism, unspecified
CPT/HCPCS: 36415; 71046; 80048; 84439; 84443; 85027; 93005

== ENCOUNTER 2024-04-12 09:34 | Outpatient (CLI) | payer MEDICARE, SELFPAY ==
--- NOTE | ~2024-04-12 | MR_ITS ---
MRI of the abdomen: Clinical indication: IPMN Technique: Coronal SSFSE ARC, WATER:coronal LAVA-FLEX, Coronal 2D FIESTA FatSat, Axial SSFSE BH ARC, Axial 3D DualEcho BH, Axial SSFSE-IR, Axial DWI b=500, Axial 2D FIESTA FatSat, pre and dynamic postco ntrast Axial LAVA ARC, postcontrast Coronal In and Opposed phase LAVA FLEX. Following intravenous administration of 20 cc MultiHance gadolinium, T1-weighted fat-sat imaging was performed in the coronal planes. Findings: Multiple gallstones are noted. The common bile duct is normal in course and caliber. No fi lling defects are seen within the CBD. No evidence of intrahepatic biliary ductal dilatation. Pancreas is nearly completely replaced by cystic masses, largest of which measures approximately 3.3 cm in diameter. No evidence for main pancreatic ductal dilatation. Liver, spleen, adrenals, right kidney appear normal. 9.3 cm simple left renal cyst present. The aorta and the paraaortic regions appear normal. 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 No definite main pancreatic ducta l dilatation. No definite solid pancreatic mass identified. Reviewed, dictated and finalized at location . 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 No definite main pancreatic ductal dilatation. No definite solid pancreatic mass identifie d.
== END 2024-04-12 09:35 | disposition home or self-care (01) ==
PROVIDERS: PCP Family Medicine
DX: K86.2 Cyst of pancreas (principal); D49.0 Neoplasm of unspecified behavior of digestive system
CPT/HCPCS: 74183; 76376

== ENCOUNTER 2024-12-09 07:59 | Inpatient (IN) | payer MEDICARE, SELFPAY ==
[2024-12-09] VITALS (9 sets, daily range): BP systolic 93–129; BP diastolic 42–65; PULSE 83–96; RESP 18–22; TEMP 36.2–37.1; O2SAT 93–96; BMI 26.6
--- NOTE | ~2024-12-09 | CT_ITS ---
EXAMINATION: CT abdomen pelvis w con DATE: 12/09/2024 10:10 INDICATION: Diffuse abdominal pain TECHNIQUE: Computed tomography (CT) of the abdomen and pelvis was performed without intravenous contr ast. The dose-length product was 1211.59 mGy-cm. Automated exposure control and iterative reconstruct ion technique were employed. COMPARISON: CT dated 01/26/2022 and MRI dated 04/12/2024. FINDINGS: There is abnormal thickening of the bladder wall which appears to be irregular. There are s urrounding inflammation and fluid. Small amount of nondependent gas in the bladder lumen. Findings maki spicious for acute cystitis. There are innumerable pancreatic cysts which can be seen as a variant of a dominant polycystic kidney disease. There are calcified granulomas of the spleen. The adrenal glan ds and right kidney are unremarkable. There is a left renal cyst. Nonobstructive bowel gas pattern. M oderate lower thoracic and lumbar spondylosis. There is a large left renal cyst. There is fatty infil tration of the liver. There is atherosclerosis of the aorta without aneurysm. No lymphadenopathy. The re is a fat-containing right inguinal hernia. IMPRESSION: 1. Abnormal bladder wall thickening with surrounding fatty infiltration and fluid, suspicious for acu te cystitis. Clinically correlate. 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 Reviewed, dictated and finalized at location A. IMPRESSION: 1. Abnormal bladder wall thickening with surrounding fatty infiltration and flu id, suspicious for acute cystitis. Clinically correlate. 2: Innumerable pancreatic cysts, possibly a variant of autosomal dominant polyc ystic kidney disease.
--- NOTE | ~2024-12-09 | XR_ITS ---
EXAM: XR abdomen/kub 1V DATE: 12/13/2024 18:30 HISTORY: severe abdominal pain . COMPARISON: CT abdomen pelvis 12/09/2024. FINDINGS: Fractured sternotomy wires, which remain in stable position. Minimal basilar scar/atelecta sis. Multiple loops of mildly dilated small bowel over the mid abdomen. The rectum is dilated to 8.3 cm by formed stool No organomegaly. No abnormal abdominal calcification. Degenerative changes in the spine and bilateral hips. IMPRESSION: Small bowel ileus versus obstruction. Possible fecal impaction. Reviewed, dictated and finalized at location K.
--- NOTE | ~2024-12-09 | XR_ITS ---
EXAMINATION: XR chest PICC line DATE: 12/17/2024 12:14 INDICATION: PICC line placement TECHNIQUE: frontal view of the chest was obtained. COMPARISON: Chest radiograph dated 07/13/2023 FINDINGS: Left upper extremity peripherally inserted central venous catheter (PICC) tip in the right atrium. Op acities in the left lower lung zone which on recent prior CT correspond to a small laterally loculate d left pleural effusion with associated atelectasis/or pneumonia on prior CT as well as a superimpose d moderate-sized pericardial effusion. Couple calcified nodules in the left lung along with calcified left hilar lymph nodes consistent with old granulomatous disease. Right lung is clear. No pulmonary edema, pneumothorax or right-sided pleural effusion. Heart size is normal. Median sternotomy wires an d mediastinal surgical clips are seen, likely from prior coronary artery bypass grafting. IMPRESSION: 1. Left upper extremity PICC line tip in the right atrium. Could consider withdrawal by [address] the tip at the level of the superior cavoatrial junction. 2. Opacities in the left lower lung zone corresponding to small loculated pleural effusion and associ ated atelectasis and/or pneumonia on prior CT. Reviewed, dictated and finalized at location A. IMPRESSION: 1. Left upper extremity PICC line tip in the right atrium. Could consider withd jorje by [address] the tip at the level of the superior cavoatrial junction . 2. Opacities in the left lower lung zone corresponding to small loculated pleur al effusion and associated atelectasis and/or pneumonia on prior CT.
--- NOTE | ~2024-12-09 | CT_ITS ---
EXAMINATION: CT abdomen pelvis w con DATE: 12/14/2024 13:12 INDICATION: Abdominal pain TECHNIQUE: Computed tomography (CT) of the abdomen and pelvis was performed with 100 mL Omnipaque-350 intravenous contrast. Automated exposure control and iterative reconstruction technique were employe d. The dose-length product was 810.83 mGy-cm. COMPARISON: 12/09/2024 FINDINGS: New small left and very small right pleural effusions. There are some adjacent consolidation at the b asilar right lower lobe and lingula with appearance favoring atelectasis over pneumonia. Couple calci fied nodules at the left lung base along with mobile small calcified hepatic and splenic calcificatio ns consistent with old granulomatous disease. Heart size is normal. Atherosclerotic coronary artery c alcifications with change of prior medial sternotomy and coronary bypass grafting as well as likely c oronary artery stenting. No pericardial effusion. Gallbladder is dilated to 4.5 cm but without evident wall thickening or Perclose inflammatory strandi ng to suggest acute cholecystitis. There are innumerable cysts replacing the entire parenchyma of the pancreas. There are also a few scattered small pancreatic parenchymal calcifications which could rep resent sequela of chronic pancreatitis. Bilateral adrenal glands and right kidney are normal. 10 cm l eft renal cyst with minimal peripheral mural calcification. There is mild bilateral hydroureteronephr osis extending to the distended bladder. Decrease in a now single tiny focus of intraluminal gas with in the bladder with improvement in the previously seen bladder wall thickening and surrounding inflam matory stranding. Status post prostatectomy. There is increased stranding in the fat anteriorly in th e pelvis which could be related to the reported recent surgery or potentially omental infarct. Postop erative change of prior cecal resection with right lower quadrant ileocolic anastomosis. 8 x 7.5 cm b all of stool at rectum which can be seen with constipation with fecal impaction. No dilated small bow el to suggest obstruction. No evident abnormal bowel wall thickening. Moderate-sized bilateral fat-co ntaining inguinal hernias. No abscess or free intraperitoneal gas or fluid. Moderate lower thoracic s pondylosis with bridging osteophytes at multiple levels consistent with diffuse idiopathic skeletal h yperostosis (DISH). IMPRESSION: 1. Residual small focus of gas within the bladder with decrease in the prior bladder wall thickening and surrounding inflammatory stranding consistent with resolving postoperative changes related to rep orted recent bladder cancer resection. 2. Mild bilateral hydronephrosis extending to the bladder which could be related to outlet obstructio n, neurogenic bladder or potentially decreased bladder emptying as sequela of the recent surgery. 3. Worsening opacification/stranding in the fat in the anterior pelvis which could be related to the recent surgery but without evident abscess or potentially omental infarct. 4. Large ball of stool at rectum suspicious for constipation with fecal impaction. 5. Moderate-sized bilateral fat-containing inguinal hernias. 6. Chronic atrophy of the pancreas which has been nearly completely replaced with innumerable pancrea tic cysts. This is new since study from 2007 and given the presence of a few scattered dystrophic kristian cifications could represent sequela of chronic pancreatitis. 7. New small left and very small right pleural effusions with some peripheral atelectasis at the left lower lobe and lingula. Reviewed, dictated and finalized at location A. IMPRESSION: 1. Residual small focus of gas within the bladder with decrease in the prior bl adder wall thickening and surrounding inflammatory stranding consistent with re solving postoperative changes related to reported recent bladder cancer resecti on. 2. Mild bilateral hydronephrosis extending to the bladder which could be relate d to outlet obstruction, neurogenic bladder or potentially decreased bladder em ptying as sequela of the recent surgery. 3. Worsening opacification/stranding in the fat in the anterior pelvis which co uld be related to the recent surgery but without evident abscess or potentially omental infarct. 4. Large ball of stool at rectum suspicious for constipation with fecal impacti on. 5. Moderate-sized bilateral fat-containing inguinal hernias. 6. Chronic atrophy of the pancreas which has been nearly completely replaced wi th innumerable pancreatic cysts. This is new since study from 2007 and given th e presence of a few scattered dystrophic calcifications could represent sequela of chronic pancreatitis. 7. New small left and very small right pleural effusions with some peripheral a telectasis at the left lower lobe and lingula.
[2024-12-09 08:27] LABS: Add Urine Microscopic? YES; Appearance Urine Turbid (Clear); Bacteria Urine 4+ /hpf; Bilirubin Urine Negative (Negative); Blood Urine 3+ (Negative); Budding Yeast Urine Present /hpf; Color Urine Yellow (Yellow); Glucose Urine UA 3+ mg/dL (Negative); Ketones Urine 1+ mg/dL (Negative); Leukocyte Esterase Ur 3+ LEU/UL (Negative); Need Manual Microscopic Reviewed; Nitrate Urine Positive (Negative); Protein Urine 2+ mg/dL (Negative); RBC Urine >100 /hpf (0-2); Specific Grav Ur 1.034 (1.001-1.035); Squamous Epithelial Cell Urine Occasional /hpf (Few); WBC Clumps Urine Present /HPF; WBC Urine >100 /hpf (0-3); pH Urine 6.5 (5.0-9.0)
[2024-12-09 09:31] LABS: Basophils Absolute Auto 0.1 K/mm3 (0.0-0.1); Basophils Percent Auto 0.2 % (0.2-1.2); Hematocrit 37.8 % (42.0-52.0); Hemoglobin 12.5 g/dL (14.0-18.0); Immature Granulocyte Absolute 0.44 K/mm3 (0.00-0.031); Immature Granulocyte Percent A 2.1 % (0-0.5); Lymphocytes Absolute Auto 0.23 K/mm3 (0.9-3.2); Lymphocytes Percent Auto 1.1 % (18.3-44.2); Mean Corpuscular HGB Conc 33.1 g/dl (32-36); Mean Corpuscular Hemoglobin 28.3 pg (26-34); Mean Corpuscular Volume 85.7 fl (80-100); Mean Platelet Volume 9.8 fl (7.4-10.4); Monocytes Absolute Auto 0.9 K/mm3 (0.1-0.6); Monocytes Percent Auto 4.2 % (2.6-8.5); Neutrophils Absolute Auto 19.6 K/mm3 (1.3-6.7); Neutrophils Percent Auto 92.4 % (45.5-73.1); Platelet Count Result 292 k/mm3 (150-375); Red Blood Count 4.41 M/mm3 (4.6-6.20); Red Cell Distribution Width 14.6 % (11.5-14.5); White Blood Count 21.2 K/mm3 (4.5-10.0)
[2024-12-09 09:43] LABS: Lactic Acid Reflex 2.5 mmol/L (0.7-2.0)
[2024-12-09 09:44] LABS: Alanine Aminotransferase 21 U/L (6-50); Albumin Level 3.3 g/dL (3.5-5.1); Alkaline Phosphatase 78 U/L (38-126); Anion Gap 13 mmol/L (4-12); Aspartate Amino Transferase 16 U/L (17-59); Bilirubin,Total 0.8 mg/dL (0.2-1.3); Blood Urea Nitrogen 30 mg/dL (9-20); Calcium 9.6 mg/dL (8.4-10.2); Carbon Dioxide 18 mmol/L (22-30); Chloride 105 mmol/L (98-107); Estimated Glomerular Filt Rate > 60; Glucose 189 mg/dL (65-110); Potassium 3.7 mmol/L (3.4-5.0); Sodium 136 mmol/L (137-145)
[2024-12-09 09:47] LABS: INR 1.2; Prothrombin Time 14.9 Seconds (11.1-14.7)
[2024-12-09] MEDS: SODIUM CHLORIDE 0.9% IV 1,000 ML 150 ML IV CONT (09:56)
[2024-12-09] MEDS: MORPHINE SULFATE (*CRX) 4 MG/ML INJ IV PUSH (09:59)
[2024-12-09] MEDS: ONDANSETRON INJ 4 MG/2 ML VIAL IV PUSH ×2 (09:59→19:49)
--- OUTSIDE RECORDS SUMMARY | 2024-12-09 11:04 | XMS_ITS | Encounter Summary ---
Author Organization [facility] Address [address] [place] [address] Phone Care Team Providers Care Commercial Electrician Name Role Phone Willard Gilbert MD Primary Care Provider [phone] Reason for Visit * Reason Onset Date Comments Spoke With Home Health Provider 08/04/2023 Encounter Details Date Type Department Care Team (Late st Contact Info) Description 08/04/2023 Telephone [facility] Surgery [address] [facility] [address] [place] [address] [place] [address] Ryanne Johnson, LUCIE Spoke With Home Health Provider Social History Tobacco Use Types Packs/Day Years Used Date Smoking Tobacco: Former Cigarettes 2 - 1981 Smokeless Tobacco: Former Chew Quit: 1991 Alcohol Use Standard Drinks/Week Comments Yes 0 (1 standard drink = 0.6 oz pur e alcohol) AUDIT-C Answer Date Recorded Q1: How often do you have a drink containing alc ohol? 2-4 times a month 07/17/2023 Q2: How many drinks containi ng alcohol do you have on a typical day when you are drinking? 1 or 2 07/17/2023 Q3: How often do you have si x or more drinks on one occasion? Never 07/17/2023 Hunger Vital Sign Answer Date Recorded Within the past 12 months, y ou worried that your food would run out before you got the money to buy more. Never true 01/31/20 23 Within the past 12 months, t he food you bought just didn't last and you didn't have money to get more. Never true 01/30/2023 Personal Safety Answer Date Recorded Have you ever been in or are you currently in a harmful physical or emotional relationship or is someone making you feel afraid or unsafe? 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
--- OUTSIDE RECORDS SUMMARY | 2024-12-09 11:04 | XMS_ITS | Clinical Summary ---
Author Organization [facility] [place] [address] Address [address] [place] [address] Care Team Providers Care Leasing Specialist Name Role Phone Willard Gilbert MD Primary Care Provider Allergies Active Allergy Reactions Criticality Noted Date Comments Gucci Inhibitors Rash Medium Arb-Angiotensin Receptor Antagonist Rash Medium Finasteride Hives,Rash Medium 04/28/2021 Lisinopril Hives,Rash Medium 04/28/2021 Medications nitroglycerin (NITROSTAT) 0.[address] 1 tablet (0.4MG) by sublingual route as needed for chest pain 25 2 2012 Active Additional Information Patient taking differently:0.4 mgsublingual Every 5 min PRN, chest pain, Has not used, Informant: Self, Spouse/Significant Other, Reported on 11/27/2024 aspirin, buffered (BUFFERIN) 81 mg tablet take 1 by oral route every day 0 2012 Active rosuvastatin (CRESTOR) 40 mg tablet take 1 tablet by oral route every day 0 0 2014 Active Additional Information Patient taking differently:40 mgoral Nightly, Indications: hyperlipidemia, Informant: Self, Spouse/Significant Other, Reported on 11/27/2024 metoprolol XL (TOPROL XL) 50 mg 24 hr tablet Take 1 tablet by mouth daily 90 each 4 2014 Active Additional Information Patient taking differently:50 mgoral Every morning, Indications: hypertension, Informant: Self, Spouse/Significant Other, Reported on 11/27/2024 meloxicam (MOBIC) 15 mg tabletIndicati ons:Osteoarthr itis Take 1 tablet (15 mg total) by mouth every morning Active doxazosin (CARDURA) 2 mg tabletIndicati ons:hypertensi on Take 1 tablet (2 mg total) by mouth nightly 2021 Active Jardiance 25 mg tabletIndicati ons:type 2 diabetes mellitus Take 1 tablet (25 mg total) by mouth every morning 2022 Active levothyroxine (SYNTHROID) 75 mcg tabletIndicati ons:hypothyroi dism Take 1 tablet (75 mcg total) by mouth back tender pulp drier before breakfast 2022 Active metFORMIN XR (GLUCOPHAGE XR) 500 mg 24 hr tabletIndicati ons:type 2 diabetes mellitus Take 4 tablets (2,000 mg total) by mouth every morning 2022 Active dutasteride (AVODART) 0.5 mg capsuleIndicat ions:benign prostatic hyperplasia with lower urinary tract sx Take 1 capsule (0.5 mg total) by mouth every morning 2022 Active glimepiride (AMARYL) 1 mg tabletIndicati ons:type 2 diabetes mellitus Take 1 tablet (1 mg total) by mouth daily before breakfast 2022 Active senna-docusate (PERICOLACE) 8.6-50 mgIndications: constipation Take 2 tablets by mouth 2 (two) times a day HOLD if having loose stools or diarrhea. 30 tablet 2023 Active Additional Information Patient taking differently:2 tablet oral2 times daily PRN, constipation, HOLD if having loose stools or diarrhea., Indications: constipation, Informant: Self, Spouse/Significant Other, Reported on 11/18/2024 bacitracin 500 unit/gram ointment Apply topically 2 (two) times a day Use during dressing changes. 14 g 2023 Active Additional Information Patient taking differently: 1 Applicationtopical 2 times daily, Use during dressing changes.,Indications: dressing changes- sacral wound, Informant: Self, Spouse/Significant Other, Reported on 11/27/2024 amLODIPine (NORVASC) 5 mg tabletIndicati ons:hypertensi on Take 1 tablet (5 mg total) by mouth every morning 2023 Active donepeziL (ARICEPT) 5 mg tabletIndicati ons:memory Take 1 tablet (5 mg total) by mouth nightly 2023 Active dibucaine (NUPERCAINAL) 1 % ointmentIndica tions:Tip of the penis pain Apply topically as needed (For tip of the penis pain) 30 g 2023 Active triamcinolone (KENALOG) 0.1 % creamIndicatio ns:Skin Inflammation Apply topically daily Apply to the left groin 80 g 2 2024 Active Additional Information Patient taking differently: 1 ApplicationtopicalDaily PRN, rash, irritation, Apply to the left groin,Indications: Skin Inflammation, skin rash, Informant: Self, Spouse/Significant Other, Reported on 11/07/2024 ciprofloxacin- dexAMETHasone (CIPRODEX) otic suspensionIndi cations:ear infection Administer 4 drops into the left ear 2 (two) times a day 2024 Active loratadine (CLARITIN) 10 mg tabletIndicati ons:Allergic Rhinitis Take 1 tablet (10 mg total) by mouth as needed for allergies Acti ve predniSONE (DELTASONE) 20 mg tabletIndicati ons:Pyoderma gangrenosum (HCC) Take 3 pills (60mg) once in the morning x 14 days, then 2 pills (40 mg ) once in AM x 14 days, then 1 pill (20mg) once in AM x 14 days 84 tablet 2024 Active alendronate (FOSAMAX) 70 mg tabletIndicati ons:Pyoderma gangrenosum (HCC) Take 1 tablet (70 mg total) by mouth every 7 days Take in the morning with a full glass of water, on an empty stomach, and do not take anything else by mouth or lie down for the next 30 min. 4 tablet 1 01/17 Active acetaminophen (TYLENOL) 500 mg tablet Take 2 tablets (1,000 mg total) by mouth every 6 (six) hours 30 tablet 2024 Active ibuprofen (ADVIL,MOTRIN) 400 mg tabletIndicati ons:Pain Take 1 tablet (400 mg total) by mouth every 6 (six) hours as needed for pain 20 tablet 2024 Active phenazopyridin e (PYRIDIUM) 100 mg tabletIndicati ons:Dysuria Take 1 tablet (100 mg total) by mouth 3 (three) times a day as needed for urinary pain 15 tablet 2024 Active trospium XR (SANCTURA XR) 60 mg capsule,extend ed release 24hrIndication s:Bladder Hyperactivity Take 1 capsule (60 mg total) by mouth daily as needed (bladder spasms) 7 capsule 2024 Active acetaminophen 500 mg capsuleIndicat ions:Pain Take 2 capsules (1,000 mg total) by mouth every 8 (eight) hours as needed (pain) 30 tablet 11/27 Discontinued( Stop Taking at Discharge) predniSONE (DELTASONE) 20 mg tabletIndicati ons:Pyoderma gangrenosum (HCC) Take 2 pills (40mg) by mouth for 10 days, then take 1 pill (20mg) by mouth for 10 days. Take medication in the morning. 30 tablet 11/18 Discontinued acetaminophen (TYLENOL) 500 mg tablet Take 2 tablets (1,000 mg total) by mouth every 6 (six) hours 30 tablet 11/27 Discontinued ibuprofen (ADVIL,MOTRIN) 400 mg tabletIndicati ons:Pain Take 1 tablet (400 mg total) by mouth every 6 (six) hours as needed for pain 20 tablet 11/27 Discontinued phenazopyridin e (PYRIDIUM) 100 mg tabletIndicati ons:Dysuria Take 1 tablet (100 mg total) by mouth 3 (three) times a day as needed for urinary pain 15 tablet 11/27 Discontinued trospium XR (SANCTURA XR) 60 mg capsule,extend ed release 24hrIndication s:Bladder Hyperactivity Take 1 capsule (60 mg total) by mouth daily as needed (bladder spasms) 7 capsule 11/27 Discontinued sulfamethoxazo le-trimethopri m (BACTRIM DS) 800-160 mg per tablet Take 1 tablet by mouth once for 1 dose 1 tablet 11/27 Discontinued sulfamethoxazo le-trimethopri m (BACTRIM DS) 800-160 mg per tablet Take 1 tablet by mouth once for 1 dose 1 tablet 12/04 Active Problems Problem Noted Date Diagnosed Date Gross hematuria 03/22/2024 Encntr for surgical aftcr fol surgery on the ski n, subcu 09/25/2023 Cholesteatoma of attic of left ear 09/23/2023 Assessment & Plan (11/02/2024 11:51 AM CDT): I again cleaned some keratin debris from the area of the attic and scutum. It was very difficult because of pain. Could not cleaned thoroughly. At this point I think he needs surgery. I think he is a reasonable surgical candidate. I recommended a temporal bone CT for further evaluation of this. We will talk with him after that is complete. Assessment & Plan (10/04/2024 5:21 PM CDT): Again cleaning this cholesteatoma was very difficult and painful for both of us. I was unable to remove all this from the attic using multiple instruments. I am going to have him start using eardrops with a return visit in about 2 weeks to attempt cleaning again. Assessment & Plan (06/08/2024 4:15 PM SAMPLE DISTRIBUTOR): This area was again cleaned under the microscope using several instruments such as a loop and fine hook and Ron forceps. Very painful. Somewhat difficult to clean. He tolerated well however. Think he is probably going to need surgery. He is not in great health. I would like to have him follow up in about 4 months. I talked with him and his daughter about using some drops before he comes in for his next appointment so that this area can be softened up and likely easier to cleaned. They understand. Drops were going to be sent to his pharmacy. Assessment & Plan (01/31/2024 1:32 PM CDT): The attic retraction pocket was debrided using several instruments including a loop and hook and Ron forceps. I was able to remove some cholesteatoma debris. Appeared to be completely removed. I am recommending that he follow up in 4 months. Assessment & Plan (09/23/2023 3:45 PM CDT): I was able to adequately clean the ear under microscope. Think the attic cholesteatoma was little bit larger. Continue to watch. He is going to follow up in four months. Type 2 diabetes mellitus 07/25/2023 Hypertension 07/25/2023 Hyperlipidemia 07/25/2023 CAD (coronary artery disease) 07/25/2023 MIRYAM on CPAP 07/25/2023 Sacral decubitus ulcer, stage IV 07/17/2023 Athscl heart disease of hadley ve coronary artery w/o ang pctrs 07/10/2023 Sacral wound, initial encounter 05/30/2023 Assessment & Plan (07/20/2023 1:29 PM SAMPLE DISTRIBUTOR): 83 y.o. male with PMH including: CAD, DM2, HTN, hypothyroidism, OSH, pilonidal cyst s/p excision (08/2021) c/b chronic wound (debridement 05/2022) who presented for flap coverage 07/17/2023. On admission he was afebrile and HDS. Labs remarkable for WBC 12.9. CT pelvis 02/2023 showed pilonidal soft tissue thickening extending 2.7cm deep without organized fluid collection, fistula or osteomyelitis. He went to the OR 07/17/2023 and had ulcer excision including the capsule down to sacral bone and had fasciocutaneous flap placed. Clarified with surgeon that no concern for osteomyelitis intraoperatively despite the depth of the cyst. Pre and post debridement cx are final negative. Pt continues on cefazolin. Recommendations: -Given no e/o infection intraopertively and negative OR tissue cultures recommend stopping cefazolin. -ID to sign off. No ID follow up needed. Please reach out if any questions or concerns. 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 Assessment & Plan (10/04/2024 5:20 PM CDT): Stable and resulting in an attic cholesteatoma on the left. Assessment & Plan (06/08/2024 4:14 PM SAMPLE DISTRIBUTOR): This is essentially unchanged. Assessment & Plan (01/31/2024 1:31 PM CDT): Stable. Assessment & Plan (09/23/2023 3:43 PM CDT): Appeared to be stable but is continuing problem. I am recommending a follow-up in 6 months. Assessment & Plan (03/26/2023 12:04 PM CDT): His ear exam is about the same. He has a very difficult area to clean just in the area of the scutum. I do think I it get that cleared up pretty well today however. We talked about this further. He may need to have something done surgically to that ear. He understands. He is going to follow up with me in about 6 months. Assessment & Plan (09/17/2022 5:00 PM SAMPLE DISTRIBUTOR): The retraction of the left tympanic membrane really has not changed. Appears to remain stable. 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 I think this continues to need surveillance and I suggested a follow-up with ear cleaning under the microscope in about 6 months. He understands and would like to go ahead and pursue that also. Assessment & Plan (05/31/2022 8:56 AM SAMPLE DISTRIBUTOR): Still has significant retraction of his left tympanic membrane. It appears pretty stable however. Continue to watch but he probably needs a left tympanomastoidectomy. His ossicles were rotated. I do not see a lot of keratin debris but I can see up passed the scutum. I am recommending a follow-up in 3 months with an audiogram. I have talked with them a little bit about revision tympanomastoidectomy and left side. Will talk with him more that time also. Bilateral impacted cerumen 05/31/2022 Assessment & Plan (01/31/2024 1:31 PM CDT): Both ears were cleaned under the microscope. The difficult on the left. Assessment & Plan (03/26/2023 12:05 PM CDT): I cleaned both ears again. They have not really changed we talked about that. Follow-up in 6 months. Assessment & Plan (09/17/2022 4:59 PM SAMPLE DISTRIBUTOR): Cerumen was removed bilaterally without much difficulty. He tolerated that well. I recommended a follow-up in about 6 months. Assessment & Plan (05/31/2022 8:55 AM SAMPLE DISTRIBUTOR): Lot of wax removed on the left side of the microscope. He tolerated this well. I recommended continued follow-up for cleaning. Will see him in about 3 months. Pilonidal cyst 05/09/2022 Overview (05/09/2022): Added automatically from request for surgery [id number] Encounters Date Type Department Care Team Description 12/01/2024 Telephone Urology Queenie Wall MD 11/27/2024 2:30 PM CDT - 11/27/2024 4:35 PM CDT Surgery [facility] Operating Room [address] [place] [address] Reyna Morgan MD CYSTOSCOPY - TRANSURETHRAL RESECTION BLADDER TUMOR 11/27/2024 1:43 PM CDT Anesthesia Event [facility] [address] [place] [address] Blayne Edgar MD Lentz, William Thomas, NP 11/27/2024 11:39 AM CDT - 11/27/2024 5:17 PM CDT Hospital Encounter [facility] [address] [place] [address] Reyna Morgan MD Gross hematuria Discharge Disposition: Discharge to home or self care 11/18/2024 1:30 PM CDT Office Visit [facility] 3rd Floor [address] [place] [address] Non-healing surgical wound, sequela (Primary Dx); 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); Skin ulcer of left groin with fat layer exposed (HCC); Pain associated with wound; At risk for infection associated with wound; Delayed wound healing; Open wound of left upper extremity, initial encounter 11/18/2024 11:15 AM CDT Office Visit [facility] [address] [facility] [address] [place] [phone] Rachel Domínguez MD PhD Excoriation (Primary Dx); Pyoderma gangrenosum (HCC) 10/29/2024 1:00 PM CDT Office Visit [facility] [address] [place] [phone] Gabino Chavez MD Dysfunction of both eustachian tubes (Primary Dx); Cholesteatoma of attic of left ear 10/25/2024 Telephone [facility] [address] [place] [phone] Soraida Buchanan LPN Refill ear drops 10/24/2024 2:48 PM CDT - 10/24/2024 11:59 PM CDT Hospital Encounter [facility] [address] [place] [address] Gross hematuria Discharge Disposition: Discharge to home or self care 10/24/2024 9:59 AM CDT - 10/24/2024 11:59 PM CDT Hospital Encounter [facility] [address] [facility] 3rd [place] [address] Gross hematuria Discharge Disposition: Discharge to home or self care 10/24/2024 9:20 AM CDT Office Visit [facility] ([facility]) - [facility] Urology [address] [place] [address] Advanced Medicine 11th [place] [address] [place] [address] Reyna Morgan MD Gross hematuria (Primary Dx) 10/24/2024 Orders Only [facility] [address] [place] [phone] Catie Hale CMA Pyoderma gangrenosum (HCC) (Primary Dx) 10/17/2024 1:00 PM CDT Office [facility] [address] [place] [address] 3rd Floor [address] [place] [phone] Delayed wound healing (Primary Dx); Pain associated with wound; At risk for infection associated with wound; Pyoderma gangrenosum (HCC); Non-healing surgical wound, sequela; 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); Skin ulcer of left groin with fat layer exposed (HCC); 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) 10/14/2024 12:45 PM CDT Office Visit [facility] [address] [place] [address] [address] [place] [phone] Rachel Domínguez MD PhD Pyoderma gangrenosum (HCC) (Primary Dx) 10/02/2024 1:00 PM CDT Office Visit [facility] [address] [place] [phone] Gabino Chavez MD Dysfunction of both eustachian tubes (Primary Dx); Cholesteatoma of attic of left ear 09/09/2024 11:15 AM SAMPLE DISTRIBUTOR Office Visit [facility] [address] [place] [address] [address] [place] [phone] Rachel Domínguez MD PhD Pyoderma gangrenosum (HCC) (Primary Dx) from Last 3 Months Surgical History Surgery Date Site/Laterality Comments CORONARY ARTERY BYPASS GRAFT 07/10/2003 - 07/09/2004 CABG COLONOSCOPY 07/10/2018 - 07/09/2019 COLON SURGERY 07/10/2003 - 07/09/2004 WOUND DEBRIDEMENT 05/17/2022 s/p rectal cyst removal CARDIAC STENT PLACEMENT 07/10/2017 - 07/09/2018 [facility] x3, Dr. Muhammad CYST REMOVAL 08/10/2021 - 09/06/2021 rectal cyst TRANSURETHRAL RESECTION OF BLADDER TUMOR 04/01/2024 WOUND DEBRIDEMENT 07/17/2023 DEBRIDEMENT ULCER - SACRUM DECUBITUS and wound vac RECTAL EXAMINATION UNDER ANESTHESIA 08/31/2022 TRANSURETHRAL RESECTION OF BLADDER 05/16/2024 Medical History Medical History Date Comments Hypertension Hypertension Ischemic heart disease Ischemic heart disease Acute myocardial infarction (HCC) Acute myocardial infarction Chronic coronary artery disease Coronary artery disease Hx Other Medical colon resection in 2004, ears surgery [facility] (hearing loss) Pilonidal cyst Diabetes (HCC) Sleep apnea doesn't use mach ine Heart attack (HCC) Type 2 diabetes mellitus (HCC) Hypothyroidism Hyperlipidemia 07/25/2023 Pyoderma gangrenosum (HCC) Family History Medical History Relation Name Comments Coronary artery disease Father Marek nary Artery Disease; No Known Problems Mother Anesthesia problems Neg Hx Relation Name Status Comments Father Alive Mother Social History Tobacco Use Types Packs/Day Years Used Date Smoking Tobacco: Former Cigarettes 2 1 1981 Smokeless Tobacco: Former Chew Quit: 1991 Tobacco Cessation:Counseling Given: Not Answered Alcohol Use Standard Drinks/Week Comments Yes 0 (1 standard drink = 0.6 oz pur e alcohol) AUDIT-C Answer Date Recorded Q1: How often do you have a drink containing alc ohol? Monthly or less 11/27/2024 Q2: How many drinks containi ng alcohol do you have on a typical day when you are drinking? 1 or 2 11/27/2024 Q3: How often do you have si x or more drinks on one occasion? Never 11/27/2024 Hunger Vital Sign Answer Date Recorded Within the past 12 months, y ou worried that your food would run out before you got the money to buy more. Never true 11/19/19 25 Within the past 12 months, t he food you bought just didn't last and you didn't have money to get more. Never true 11/18/2024 Personal Safety Answer Date Recorded Have you ever been in or are you currently in a harmful physical or emotional relationship or is someone making you feel afraid or unsafe? Denies 11/27/2024 Sex and Gender Information Value Date Recorded Sex Assigned at Not on file Legal Sex Male 8:51 PM SAMPLE DISTRIBUTOR Gender Identity Not on file Sexual Orientation Not on file Obstetrics History Last Filed Vital Signs Vital Sign Reading Time Taken Comments Blood Pressure 143/68 11/27/2024 4:20 PM CDT Pulse 58 11/27/2024 4:15 PM CDT Temperature 36.5 C (97.7 F) 11/27/2024 3:20 PM CDT Respiratory Rate 22 11/27/2024 4:20 PM CDT Oxygen Saturation 92% 11/27/2024 4:20 PM CDT Inhaled Oxygen Concentration - - Weight 96.2 kg (212 lb) 11/27/2024 1:04 PM CDT Height 185.4 cm (6' 1) 11/07/2024 10:00 AM CDT Body Mass Index 27.97 11/07/2024 10:00 AM CDT Plan of Treatment Health Maintenance Due Date Last Done Comments Albumin Creatinine Ratio, Urine 1940 Depression Screening 1940 Dilated Eye Exam 1940 Foot Exam 1940 Hepatitis B Screening 01/15/1960 Zoster Vaccine (1 of 2) 01/15/1992 Well Visit 65+ 2007 DTaP/Tdap/Td Vaccine (2 - Td or Tdap) 05/06/2023 05/06/2013 Covid-19 Vaccine (4 - 2023-2 5 season) 2024 04/16/2021, 08/24/2020, 08/03/2020 Hemoglobin A1C 07/27/2024 01/25/2024, 06/26/2023 Lipid Panel 01/24/2025 01/25/2024, 02/2024, 05/11/2022, Additional history exists eGFR 01/24/2025 01/25/2024, 07/10, 07/21/2023, Additional history exists Influenza Vaccine (Season Ended) 2025 04/06/2021, 04/01/2020, 04/08/2019, Additional history exists Fall Risk Assessment 11/27/2025 11/27/2024 Pneumococcal vaccine 65+ Completed 04/06/2021, 04/09 Abdominal Aortic Aneurysm (A AA) Screen Completed 02/16/2024 Medical Devices Implanted Type Area Artillery Meteorological Man Device Identifier Shelf Expiration Date Model / Serial / Lot Stent Stent Heart Description:X3 [employer] Universa 6fr 28cm Firm Positioner Monofilament Tether Stent [id number] - Sn/A - [id number] Implanted:Qty: 1 on 05/16/2024 by Reyna Morgan MD at [facility] Stent Left: Ureter [employer] 03/08/2027 [id number] / N/A / [id number] Procedures Procedure Name Priority Date/Time Associated Diagnosis Comments POCT GLUCOSE DEVICE Routine 11/27/2024 3 :11 PM CDT SURGICAL PATHOLOGY Routine 11/27/2024 2: 22 PM CDT Gross hematuria CYSTOSCOPY - TRANSURETHRAL RESECTION BLADDER TUMOR 11/27/2024 1:42 PM CDT Gross hematuria Case Notes 10/24@1106- Moved case to 11/27 per Charmaine via case msg (EF) POCT GLUCOSE DEVICE Routine 11/27/2024 1 :03 PM CDT DISCHARGE DRESSING Routine 11/18/2024 12 :17 PM CDT CYTOLOGY Routine 10/24/2024 9:50 AM CDT Gross hematuria URINE CULTURE Routine 10/24/2024 9:50 AM CDT Gross hematuria DISCHARGE DRESSING Routine 10/17/2024 1: [address] ABDOMEN PELVIS W CONTRAST Schedule Routine, Read Routine (OP Routine) 02/16/2024 11:50 AM CDT Pilonidal disease EGFR Routine 01/25/2024 11:36 AM CDT Sacral wound, initial encounter HEMOGLOBIN A1C Routine 01/25/2024 11:36 AM CDT Sacral wound, initial encounter 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) LIPID PANEL Routine 01/25/2024 11:36 AM CDT Sacral wound, initial encounter from Last 3 Months or Most Recently Relevant to Health Maintenance Results * POCT glucose (11/27/2024 3:11 PM CDT) Glucose, POC 151 70 - 199 mg/dL Blood 11/27/2024 3:11 PM CDT 11/27/2024 3:11 PM CDT us Reyna Morgan MD LAB POCT ORDERABLES - DEVICE Fin al Result [facility] Department [place] [address] * Surgical pathology (11/27/2024 2:22 PM CDT) Tissue (Bladder, resection) 11/27/2024 2:22 PM CDT Narrative PATHOLOGY [facility] - 12/03/2024 10:20 AM CDT EPIC results best viewed via link to PDF [facility] Angelika Mercado [facility] [place] [address] Note to Patients: This report may contain a detailed description of human tissue sent by a health care provider to the laboratory for pathologic evaluation. The content of this report is essential for diagnosis and may provide important critical findings. This information may be unfamiliar to patients to review without a medical professional present. It is advised that the patient review this report in the presence of a health care provider who can answer questions and explain the details. SURGICAL PATHOLOGY REPORT FINAL Patient Name: RENÉ PEREZ Gender: Shannan : 1940 (Age: 84) Address: [address] [place], [place] [phone] Hospital #: [id number] Taken:11/27/2024 Received:11/27/2024 Reported: 12/03/2024 Patient Type: [facility] Service: Surgery Location: [facility] OR POD1 Physician(s): Reyna Morgan M.D. WillardThalia Amato M.D. 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 Bernice Morin M.D., PH.D. Report Electronically Reviewed and Signed Out By Bernice Morin M.D., PH.D. 12/03/2024 10:20:27 Julio C Harrison M.D. History: The patient is a 84-year-old man with history of gross hematuria. Operative procedure: Transurethral resection bladder tumor Specimen(s) Received: A: Bladder tumor Gross Description: Received in formalin labeled patient identifiers and bladder tumors are multiple fragments of strange-lisa rubbery soft tissue that measure 3.7 x 3.0 x 0.3 cm in aggregate. The specimen is entirely submitted. Labeled A1 to A2. Jar 0. 11/28/2024 15:03 PA(s): Priya Guthrie MS, PA(ASCP)CM By this signature, I attest that the above diagnosis is based upon my personal examination of the slides(and/or other material). Addenda/Procedures The performance characteristics of some immunohistochemical stains, fluorescence in-situ hybridization tests and immunophenotyping by flow cytometry cited in this report (if any) were determined by the Surgical Pathology and Flow Cytometry Departments at [facility] as part of an ongoing data quality consultant program and in compliance with federally mandated regulations drawn from the Clinical Laboratory Improvement Act of 1988 (CLIA '88). Some of these tests rely on the use of analyte specific reagents and are subject to specific labeling requirements by the US Food and Drug Administration. Such diagnostic tests may only be performed in a facility that is certified by the Department of Health and Human Services as a high complexity laboratory under CLIA '88. The FDA has determined that such clearance or approval is not necessary. This test is used for clinical purposes. It should not be regarded as investigational or for research. Nevertheless, federal rules concerning the medical use of analyte specific reagents require that the following disclaimer be attached to the report: This test was developed and its performance characteristics determined by the Surgical Pathology and Flow Cytometry Departments of [facility]. It has not been cleared or approved by the U. S. Food and Drug Administration. IMAGES AND SCANNED DOCUMENTS, IF INCLUDED, ONLY VIEWABLE IN PDF VERSION OF REPORT Reyna Morgan MD LAB PATHOLOGY ORDERABLES Final R esult PATHOLOGY [facility] [address]rd Floor [place], [place] [phone] * POCT glucose (11/27/2024 1:03 PM CDT) Glucose, POC 155 70 - 199 mg/dL Blood 11/27/2024 1:03 PM CDT 11/27/2024 1:03 PM CDT us Reyna Morgan MD LAB POCT ORDERABLES - DEVICE Fin al Result Performing Organization Address City/[facility]/ZIP Co de Phone Number [facility] Department [place] [address] * Post-Discharge Dressing Care (11/18/2024 12:17 PM CDT) Narrative Ciara Tavarez RN - 11/18/2024 12:17 PM CDT Left groin ulcer: - thin layer of EPC to periwound - Polymem WIC AG to wound, cover with gauze Gluteal fold ulcer: - thin layer of EPC to periwound - Polymem WIC AG to wound, cover with gauze Left forearm: - Polymem WIC AG to wound, cover with gauze Follow-up in approximately one month Wound care performed per order. us Venus Lama NP NURSING WOUND CARE Clara wilson Result * Cytology (10/24/2024 9:50 AM CDT) Fluid (Urine, Voided (Cytology)) 10/24/2024 9:50 AM CDT 10/24/2024 4:39 PM CDT Narrative PATHOLOGY [facility] - 10/29/2024 2:38 PM CDT EPIC results best viewed via link to PDF [facility] Angelika Mercado Laboratory of Surgical Pathology [place], [place] [id number] Note to Patients: This report may contain a detailed description of human tissue sent by a health care provider to the laboratory for pathologic evaluation. The content of this report is essential for diagnosis and may provide important critical findings. This information may be unfamiliar to patients to review without a medical professional present. It is advised that the patient review this report in the presence of a health care provider who can answer questions and explain the details. CYTOPATHOLOGY REPORT FINAL Patient Name: RENÉ PEREZ Gender: M : 1940 (Age: 84) Address: [facility] [address] [place] [address] [facility] #: [id number] Taken:10/24/2024 Received:10/24/2024 Reported: 10/29/2024 Patient Type: [facility] SPECIMEN Service: UNKNOWN Location: Physician(s): Reyna Morgan M.D. FINAL DIAGNOSIS A. Urine, bladder, void: - Rare atypical urothelial cell, suspicious for high grade urothelial carcinoma nawaf/10/28/2024 15:30 By this signature, I attest that the above diagnosis is based upon my personal examination of the slides(and/or other material indicated in the diagnosis). Golden Hansen DO Report Electronically Reviewed and Signed Out By Golden Hansen DO 10/29/2024 14:38:40 Azar Borrero [facility] Gross Description A. Urine, bladder, void: 100 ml pink fluid in CytoRich Red vial - 1 Pap stained Sure Path. (ep) Clinical Diagnosis and History The patient is an 84 year old man with a history of bladder tumor. REPORT IMAGES AND SCANNED DOCUMENTS, IF INCLUDED, ONLY VIEWABLE IN PDF VERSION OF REPORT The performance characteristics of some immunohistochemical stains, in-situ hybridization and fluorescence in-situ hybridization tests and immunophenotyping by flow cytometry cited in this report (if any) were determined by the Surgical Pathology and Flow Cytometry Departments at [facility] as part of an ongoing data quality consultant program and in compliance with federally mandated regulations drawn from the Clinical Laboratory Improvement Act of 1988 (CLIA '88). Some of these tests rely on the use of analyte specific reagents and are subject to specific labeling requirements by the US Food and Drug Administration. Such diagnostic tests may only be performed in a facility that is certified by the Department of Health and Human Services as a high complexity laboratory under CLIA '88. The FDA has determined that such clearance or approval is not necessary. This test is used for clinical purposes. It should not be regarded as investigational or for research. Nevertheless, federal rules concerning the medical use of analyte specific reagents require that the following disclaimer be attached to the report: This test was developed and its performance characteristics determined by the Surgical Pathology and Flow Cytometry Departments of [facility]. It has not been cleared or approved by the U. S. Food and Drug Administration. Reyna Morgan MD LAB CYTOLOGY ORDERABLES Final Re sult Performing Organization Address City/[facility]/ZIP Co de Phone Number PATHOLOGY [facility] 3rd Floor [place], [place] [phone] * Urine culture Urine, clean voided (10/24/2024 9:50 AM CDT) Report Final Report: No growth Urine, clean voided 10/24/2024 9:50 AM CDT 10/24/2024 3:08 PM CDT Narrative [facility] - 10/25/2024 3:56 PM CDT Testing performed by [facility] Microbiology Laboratory ([phone]) Reyna Morgan MD LAB MICROBIOLOGY - GENERAL ORDER KENDY Final Result Performing Organization Address [facility]/ZIP Co de Phone Number [facility] Department [place] [address] * Post-Discharge Dressing Care (10/17/2024 1:31 PM CDT) Narrative Emerald Gee RN - 10/17/2024 1:31 PM CDT Wound care applied per orders Left groin ulcer EPC to the periwound thin layer Aquacel Extra cover with dry dressing Gluteal fold: please apply Aquacel Extra and cover with Dry dressing Follow up in one month Yadira Lazcano CANCER PROGRAM DIRECTOR NURSING WOUND CARE Final Re sult * CT abdomen pelvis with contrast (02/16/2024 11:50 AM CDT) Anatomical Region Laterality Modality Body N/A Computed Tomogra phy 02/16/2024 1:43 PM CDT Impressions 02/16/2024 2:33 PM CDT 1. Focal thickening of the left anterolateral bladder wall with a focal enhancing nodule which may be concerning for a bladder neoplasm. Further evaluation with cystoscopy is recommended. 2. 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 The pancreatic duct is not definitively identified. Recommend further evaluation with MRCP. 3. Partially imaged soft tissue thickening in the region of the gluteal fold and left inguinal region, possibly representing soft tissue inflammation/wounds. No fluid collections or osseous involvement. Dictated by: Roxanne Haile M.D. The radiology attending physician has personally reviewed this study, and had reviewed and/or edited this written report and agrees with it. Electronically signed by: Dorie Fraga M.D. 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 CT obtained for pre-colostomy evaluation. TECHNIQUE: Transaxial computed tomographic images of the abdomen and pelvis were obtained with intravenous contrast according to the standard protocol after the uneventful administration of 70 mL Opti-Ray 350 intravenous contrast. COMPARISON: CT pelvis, 02/23/2023 CT abdomen and pelvis, 11/20/2004 FINDINGS: Calcified granuloma in the lingula. The lungs are otherwise clear. The heart is normal in size without pericardial effusion. Partially visualized leads/catheters within the heart. Partially imaged median sternotomy wires. The liver is normal in size with mild lobulation, possibly suggestive of fibrotic changes. There are multifocal calcified granulomas scattered throughout the liver, consistent with prior granulomatous disease. No intrahepatic or extrahepatic biliary ductal dilatation. The gallbladder is normal. The spleen is normal in size with scattered calcified granulomas, consistent with prior granulomatous disease. Near complete replacement of the pancreatic parenchyma by innumerable cystic lesions, with the largest focal cyst measuring up to 3.3 x 2.2 cm. The pancreatic duct is not definitively identified. The adrenal glands are normal. Kidneys are symmetric in size and enhancement. There is a 1.7 x 1.8 cm exophytic simple cyst arising from the inferior pole of the left kidney with thin peripheral calcification. No hydronephrosis or nephrolithiasis. There is mild asymmetric thickening of the left lateral base of the urinary bladder wall with a hyperenhancing focal nodule measuring up to 1.0 cm (series 2, image 185). The stomach is normal. The small and large bowel are normal in caliber without focal wall thickening. Post surgical changes from partial right hemicolectomy. Colonic diverticulosis. Prostate is normal. The abdominal aorta is normal in caliber with severe atherosclerosis. The branches of the aorta remain patent with moderate to severe calcification at the origins. The IVC is diminutive but patent. The renal veins, and portosplenic confluence, SMV, and splenic veins remain patent. No free or loculated fluid collection. No free intra-abdominal air. No mesenteric nodularity or stranding. No abdominal pelvic lymphadenopathy. No suspicious osseous lesions. Right total hip arthroplasty. Bilateral fat-containing inguinal hernias, right greater than left. Fat stranding versus scarring in subcutaneous tissues overlying left gluteal muscles. Soft tissue thickening and stranding the right inguinal region, nonspecific, but possibly representing soft tissue inflammation. Similar soft tissue thickening and mild stranding is seen in the gluteal region. There are no fluid collections or osseous erosions. Procedure Note Dorie Fraga MD - 02/16/2024 EXAMINATION: Computed tomography of the abdomen and pelvis with intravenous contrast HISTORY: History of pilonidal cyst complicated by nonhealing wound. CT obtained for pre-colostomy evaluation. TECHNIQUE: Transaxial computed tomographic images of the abdomen and pelvis were obtained with intravenous contrast according to the standard protocol after the uneventful administration of 70 mL Opti-Ray 350 intravenous contrast. COMPARISON: CT pelvis, 02/23/2023 CT abdomen and pelvis, 11/20/2004 FINDINGS: Calcified granuloma in the lingula. The lungs are otherwise clear. The heart is normal in size without pericardial effusion. Partially visualized leads/catheters within the heart. Partially imaged median sternotomy wires. The liver is normal in size with mild lobulation, possibly suggestive of fibrotic changes. There are multifocal calcified granulomas scattered throughout the liver, consistent with prior granulomatous disease. No intrahepatic or extrahepatic biliary ductal dilatation. The gallbladder is normal. The spleen is normal in size with scattered calcified granulomas, consistent with prior granulomatous disease. Near complete replacement of the pancreatic parenchyma by innumerable cystic lesions, with the largest focal cyst measuring up to 3.3 x 2.2 cm. The pancreatic duct is not definitively identified. The adrenal glands are normal. Kidneys are symmetric in size and enhancement. There is a 1.7 x 1.8 cm exophytic simple cyst arising from the inferior pole of the left kidney with thin peripheral calcification. No hydronephrosis or nephrolithiasis. There is mild asymmetric thickening of the left lateral base of the urinary bladder wall with a hyperenhancing focal nodule measuring up to 1.0 cm (series 2, image 185). The stomach is normal. The small and large bowel are normal in caliber without focal wall thickening. Post surgical changes from partial right hemicolectomy. Colonic diverticulosis. Prostate is normal. The abdominal aorta is normal in caliber with severe atherosclerosis. The branches of the aorta remain patent with moderate to severe calcification at the origins. The IVC is diminutive but patent. The renal veins, and portosplenic confluence, SMV, and splenic veins remain patent. No free or loculated fluid collection. No free intra-abdominal air. No mesenteric nodularity or stranding. No abdominal pelvic lymphadenopathy. No suspicious osseous lesions. Right total hip arthroplasty. Bilateral fat-containing inguinal hernias, right greater than left. Fat stranding versus scarring in subcutaneous tissues overlying left gluteal muscles. Soft tissue thickening and stranding the right inguinal region, nonspecific, but possibly representing soft tissue inflammation. Similar soft tissue thickening and mild stranding is seen in the gluteal region. There are no fluid collections or osseous erosions. IMPRESSION: 1. Focal thickening of the left anterolateral bladder wall with a focal enhancing nodule which may be concerning for a bladder neoplasm. Further evaluation with cystoscopy is recommended. 2. 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 The pancreatic duct is not definitively identified. Recommend further evaluation with MRCP. 3. Partially imaged soft tissue thickening in the region of the gluteal fold and left inguinal region, possibly representing soft tissue inflammation/wounds. No fluid collections or osseous involvement. Dictated by: Roxanne Haile M.D. The radiology attending physician has personally reviewed this study, and had reviewed and/or edited this written report and agrees with it. Electronically signed by: Shannan Le.D. us Maria Ines Sauceda MD IMG CT PROCEDURES Final Res ult * eGFR (01/25/2024 11:36 AM CDT) eGFR 78 >=60 mL/min/1. 73 m2 Comment: Interpretive Data Reference Interval Normal >/= 90 mL/min/1.73m2 Mildly decreased* 60 - 89 mL/min/1.73m2 Mildly to moderately decreased 45 - 59 mL/min/1.73m2 Moderately to severely decreased 30 - 44 mL/min/1.73m2 Severely decreased 15 - 29 mL/min/1.73m2 Kidney Failure < 15 mL/min/1.73m2 *Relative to young adult level Estimated glomerular filtration rate is determined by the 2020 CKD-EPI equation recommended by the National Kidney Foundation (A Unifying Approach to GFR Estimation: Recommendations of the NKF-ASK Task Force on Reassessing the Inclusion of Race in Diagnosing Kidney Disease, JASN 2020). The CKD-EPI equation should not be used for patients with unstable renal function and has not been validated in children and those over 70. Current interpretive data was last reviewed 2021. Blood 01/25/2024 11:3 6 AM CDT 01/25/2024 12:24 PM CDT us Melva Riggs MD LAB BLOOD ORDERABLES Final R esult [facility] Department [place] [address] * (ABNORMAL) Hemoglobin A1c (01/25/2024 11:36 AM CDT) Hgb A1C 7.6(H) 4.0 - 5.6 % Estimated Average Glucose 171 mg/dL [facility] Comment: The ADA recommends reporting an estimated Average Glucose (eAG) with all Hemoglobin A1c results using the equation derived from a study of 507 normal and diabetic adults. Minority populations were underrepresented and children were not included. (Diabetes Care 2020; 43(S1): S66-S76). The eAG is not equivalent to a fasting glucose. Blood Venous blood specimen / Unknown 01/25/2024 11:36 AM CDT 01/25/2024 12:20 PM CDT us Melva Riggs MD LAB BLOOD ORDERABLES Final R esult [facility] Department [place] [address] * (ABNORMAL) Lipid panel (01/25/2024 11:36 AM CDT) Cholesterol 122 30 - 199 mg/dL Comment: Interpretive Data Ages < or = 19 years Acceptable: <170 mg/dL Borderline high: 170-199 mg/dL High: >or= 200 mg/dL Ages > or = 20 years Desirable: <200 mg/dL Borderline high: 200-239 mg/dL High: >or= 240 mg/dL Literature References: 1. Expert Panel on Integrated Guidelines for Cardiovascular Health and Risk Reduction in Children and Adolescents. Pediatrics 2011;128:S213 2. NCEP Expert Panel. Circulation 2004;110:227 Current Interpretive Data was last revised on 2018. Triglycerides 134 <=149 mg/dL [facility] Comment: Interpretive Data Ages < or = 9 years Acceptable: <75 mg/dL Borderline high: 75-99 mg/dL High: >or= 100 mg/dL Ages 10 to 20 years Acceptable: <90 mg/dL Borderline high: 90-129 mg/dL High: >or= 130 mg/dL Ages > or = 20 years Desirable: <150 mg/dL Borderline high: 150-199 mg/dL High: 200-499 mg/dL Very high: >or= 499 mg/dL Literature References: 1. Expert Panel on Integrated Guidelines for Cardiovascular Health and Risk Reduction in Children and Adolescents. Pediatrics 2011;128:S213 2. NCEP Expert Panel. Circulation 2004;110:227 Current Interpretive Data was last revised on 2018. HDL 39(L) >=40 mg/dL [facility] Comment: Interpretive Data Ages < or = 19 years Acceptable: >45 mg/dL Borderline low: 40-45 mg/dL Low: <40 mg/dL Ages > or = 20 years Desirable: >or= 60 mg/dL Low: <40 mg/dL Literature References: 1. Expert Panel on Integrated Guidelines for Cardiovascular Health and Risk Reduction in Children and Adolescents. Pediatrics 2011;128:S213 2. NCEP Expert Panel. Circulation 2004;110:227 Current Interpretive Data was last revised on 2018. LDL, calculated 56 <=129 mg/dL [facility] Comment: Interpretive Data Ages < or = 19 years Acceptable: <110 mg/dL Borderline high: 110-129 mg/dL High: >or= 130 mg/dL Ages > or = 20 years Optimal: <100 mg/dL Near optimal: 100-129 mg/dL Borderline high: 130-159 mg/dL High: >160 mg/dL Literature References: 1. Expert Panel on Integrated Guidelines for Cardiovascular Health and Risk Reduction in Children and Adolescents. Pediatrics 2011;128:S213 2. NCEP Expert Panel. Circulation 2004;110:227 Current Interpretive Data was last revised on 2018. Non-HDL Cholesterol 83 mg/dL [facility] Comment: Interpretive Data Ages < or = 19 years Acceptable: <120 mg/dL Borderline high: 120-144 mg/dL High: >145 mg/dL Ages > or = 20 years When triglycerides are >200 mg/dL, Non-HDL cholesterol is a secondary target of therapy with treatment goals that are 30 mg/dL greater than the LDL cholesterol target. Literature References: 1. Expert Panel on Integrated Guidelines for Cardiovascular Health and Risk Reduction in Children and Adolescents. Pediatrics 2011;128:S213 2. NCEP Expert Panel. Circulation 2003;110:227 Current Interpretive Data was last revised on 2018. Chol/HDL ratio 3 [facility] Blood Venous blood specimen / Unknown 01/25/2024 11:36 AM CDT 01/25/2024 12:20 PM CDT us Melva Riggs MD LAB BLOOD ORDERABLES Final R esult [facility] Department [place] [address] from Last 3 Months or Most Recently Relevant to Health Maintenance Insurance [employer] MEDICARE ADVANTAGE [facility] MEDICARE [facility] MEDICARE Advance Directives For more information, please contact: [phone] * Full Code (Latest Code Status on File) Date Activated Date Inactivated Comments 07/17/2023 1:42 PM 07/25/2023 8:43 PM Care Teams Leasing Specialist Relationship Specialty Start Date End Date Willard Gilbert MD PCP - General 10/07/16
--- OUTSIDE RECORDS SUMMARY | 2024-12-09 11:04 | XMS_ITS | Referral Summary ---
Author Organization [facility] [address] Address [address] [place] [address] Care Team Providers Care Director Of Rotc Name Role Phone Willard Gilbert MD Primary Care Provider Encounters Date Type Department Care Team Description 12/01/2024 Telephone Urology Queenie Wall MD 11/27/2024 2:30 PM CDT - 11/27/2024 4:35 PM CDT Surgery [facility] Operating Room 1 [place] [phone] Reyna Morgan MD CYSTOSCOPY - TRANSURETHRAL RESECTION BLADDER TUMOR 11/27/2024 1:43 PM CDT Anesthesia Event [facility] Operating Room 1 [place] [phone] Blayne Edgar MD Lentz, William Thomas, NP 11/27/2024 11:39 AM CDT - 11/27/2024 5:17 PM CDT Hospital Encounter [facility] Operating Room 1 [place] [address] Reyna Morgan MD Gross hematuria Discharge Disposition: Discharge to home or self care 11/18/2024 11:15 AM CDT Office Visit [facility] [address] [place] [address] Rachel Domínguez MD PhD Excoriation (Primary Dx); Pyoderma gangrenosum (HCC) 11/18/2024 1:30 PM CDT [facility] [address] [facility] 3rd Floor [address] [place] [address] Non-healing surgical wound, sequela (Primary Dx); 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); Skin ulcer of left groin with fat layer exposed (HCC); Pain associated with wound; At risk for infection associated with wound; Delayed wound healing; Open wound of left upper extremity, initial encounter 10/29/2024 1:00 PM CDT Office Visit [facility] Otolaryngology [address] [place] [phone] Gabino Chavez MD Dysfunction of both eustachian tubes (Primary Dx); Cholesteatoma of attic of left ear 10/25/2024 Telephone [facility] Otolaryngology [address] [place] [phone] Soraida Buchanan LPN Refill ear drops 10/24/2024 9:59 AM CDT - 10/24/2024 11:59 PM CDT Hospital Encounter [facility] [address] [place] [address] Gross hematuria Discharge Disposition: Discharge to home or self care 10/24/2024 2:48 PM CDT - 10/24/2024 11:59 PM CDT Hospital Encounter [facility] [address] [place] [address] Gross hematuria Discharge Disposition: Discharge to home or self care 10/24/2024 Orders Only [facility] [address] [facility] [address] [place] [phone] Catie Hale CMA Pyoderma gangrenosum (HCC) (Primary Dx) 10/24/2024 9:20 AM CDT Office Visit [facility] 11th [place] [address] [place] [address] Reyna Morgan MD Gross hematuria (Primary Dx) 10/17/2024 1:00 PM CDT [facility] [address] [place] [address] 3rd Floor [address] [place] [phone] Delayed wound healing (Primary Dx); Pain associated with wound; At risk for infection associated with wound; Pyoderma gangrenosum (HCC); Non-healing surgical wound, sequela; 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); Skin ulcer of left groin with fat layer exposed (HCC); 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) 10/14/2024 12:45 PM CDT Office Visit [facility] Derm[facility]ology [address] [place] [address] [address] [place] [phone] Rachel Domínguez MD PhD Pyoderma gangrenosum (HCC) (Primary Dx) 10/02/2024 1:00 PM CDT Office Visit [facility] Otolaryngology [address] [place] [phone] Gabino Chavez MD Dysfunction of both eustachian tubes (Primary Dx); Cholesteatoma of attic of left ear 09/09/2024 11:15 AM SUPERVISOR COMPUTER OPERATIONS Office Visit [facility] [address] [place] [address] [address] [place] [phone] Rachel Domínguez MD PhD Pyoderma gangrenosum (HCC) (Primary Dx) from Last 3 Months Allergies Active Allergy Reactions Criticality Noted Date [...] 1 tablet (75 mcg total) by mouth corporate giving manager before breakfast 2022 Active metFORMIN XR (GLUCOPHAGE [...] again. Assessment & Plan (06/08/2024 4:15 PM SUPERVISOR COMPUTER OPERATIONS): This area was again cleaned under the [...] 05/30/2023 Assessment & Plan (07/20/2023 1:29 PM SUPERVISOR COMPUTER OPERATIONS): 83 y.o. male with PMH including: CAD, [...] left. Assessment & Plan (06/08/2024 4:14 PM SUPERVISOR COMPUTER OPERATIONS): This is essentially unchanged. Assessment & Plan [...] months. Assessment & Plan (09/17/2022 5:00 PM SUPERVISOR COMPUTER OPERATIONS): The retraction of the left tympanic membrane really has not changed. Appears to remain stable. 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 I think this continues to need surveillance and I suggested a follow-up with ear cleaning under the microscope in about 6 months. He understands and would like to go ahead and pursue that also. Assessment & Plan (05/31/2022 8:56 AM SUPERVISOR COMPUTER OPERATIONS): Still has significant retraction of his left [...] months. Assessment & Plan (09/17/2022 4:59 PM SUPERVISOR COMPUTER OPERATIONS): Cerumen was removed bilaterally without much difficulty. He tolerated that well. I recommended a follow-up in about 6 months. Assessment & Plan (05/31/2022 8:55 AM SUPERVISOR COMPUTER OPERATIONS): Lot of wax removed on the left side of the microscope. He tolerated this well. I recommended continued follow-up for cleaning. Will see him in about 3 months. Pilonidal cyst 05/09/2022 Overview (05/09/2022): Added automatically from request for surgery [id number] Social History Tobacco Use Types Packs/Day Years Used Date Smoking Tobacco: Former Cigarettes 2 1981 Smokeless Tobacco: Former Chew Quit: 1991 [...] on file Legal Sex Male 8:51 PM SUPERVISOR COMPUTER OPERATIONS Gender Identity Not on file Sexual Orientation Not on file Last Filed Vital Signs Vital Sign Reading [...] 11/07/2024 10:00 AM CDT Plan of Treatment Not on file Medical Devices Implanted Type Area Flight Inspector Device Identifier Shelf Expiration Date Model / Serial / Lot Stent Stent Heart Description:X3 [employer] Universa 6fr 28cm Firm Positioner Monofilament Tether Stent [id number] - Sn/A - [id number] Implanted:Qty: 1 on 05/16/2024 by Reyna Morgan MD at [facility] Stent Left: Ureter [employer] 03/08/2027 [id number] / N/A / [id number] Procedures Procedure Name Priority Date/Time Associated Diagnosis Comments POCT GLUCOSE DEVICE Routine 11/27/2024 3 :11 PM CDT SURGICAL PATHOLOGY Routine 11/27/2024 2: 22 PM CDT Gross hematuria CYSTOSCOPY - TRANSURETHRAL RESECTION BLADDER TUMOR 11/27/2024 1:42 PM CDT Gross hematuria Case Notes 10/24@1106- Moved case to 11/27 per Charmaine via case msg (EF) POCT GLUCOSE DEVICE Routine 11/27/2024 1:03 PM CDT DISCHARGE DRESSING Routine 11/18/2024 12 [...] ORDERABLES - DEVICE Fin al Result [facility] [place] [address] * Surgical pathology (11/27/2024 2:22 PM CDT) Tissue (Bladder, resection) 11/27/2024 2:22 PM CDT Narrative PATHOLOGY [facility] - 12/03/2024 10:20 AM CDT EPIC results best viewed via link to PDF [facility] Angelika Mecrado Laboratory [place] [address] Note to Patients: This report may contain [...] Gender: M : 1940 (Age: 84) Address: [address] [place], [place] [address] [facility] #: [id number] Taken:11/27/2024 Received:11/27/2024 Reported: 12/03/2024 Patient Type: [facility] Service: Surgery Location: [facility] OR POD1 Physician(s): Thalia Martinez M.D. James Riley McGinnis, M.D. Diagnosis: Bladder, transurethral resection - High-grade papillary urothelial carcinoma, noninvasive - Urothelial carcinoma in situ present - Muscularis propria present and not involved - Pathologic stage is at least: customer care representative toa/12/03/2024 07:46 By this signature, I attest that the above diagnosis is based upon my personal examination of the slides(and/or other material indicated in the diagnosis). Bernice Morin M.D., PH.D. Report Electronically Reviewed and Signed Out By eBrnice Morin M.D., PH.D. 12/03/2024 10:20:27 Julio C [...] submitted. Labeled A1 to A2. Jar 0. /11/28/2024 15:03 PA(s): Priya Guthrie MS, PA([facility])CM By this signature, I attest that the above diagnosis is based upon my personal examination of the slides(and/or other material). Addenda/Procedures The performance characteristics of some immunohistochemical stains, fluorescence in-situ hybridization tests and immunophenotyping by flow cytometry cited in this report (if any) were determined by the Surgical Pathology and Flow Cytometry Departments at [facility] as part of an ongoing software quality analyst program and in compliance with federally mandated [...] Surgical Pathology and Flow Cytometry Departments of [facility]. It has not been cleared or approved by the U. S. Food and Drug Administration. IMAGES AND SCANNED DOCUMENTS, IF INCLUDED, ONLY VIEWABLE IN PDF VERSION OF REPORT Reyna Morgan MD LAB PATHOLOGY ORDERABLES Final R esult PATHOLOGY [facility] 3rd Floor [place], [place] [phone] * POCT glucose (11/27/2024 1:03 PM CDT) Glucose, POC 155 70 - 199 mg/dL Blood 11/27/2024 1:03 PM CDT 11/27/2024 1:03 PM CDT us Reyna Morgan MD LAB POCT ORDERABLES - DEVICE Fin al Result [facility] Department [place] [address] * Post-Discharge Dressing Care (11/18/2024 12:17 PM CDT) Narrative Ciara Tavarez, LUCIE - 11/18/2024 12:17 PM CDT Left groin [...] one month Wound care performed per order. Venus Lama NP NURSING WOUND CARE Clara wilson Result * Cytology (10/24/2024 9:50 AM CDT) Fluid (Urine, Voided (Cytology)) 10/24/2024 9:50 AM CDT 10/24/2024 4:39 PM CDT Narrative PATHOLOGY [facility] - 10/29/2024 2:38 PM CDT EPIC results best viewed via link to PDF [facility] Angelika Mercado Laboratory [place] [address] Note to Patients: This report may contain [...] Gender: M : 1940 (Age: 84) Address: [facility] [address], [place] [address] Hospital #: [id number] Taken:10/24/2024 Received:10/24/2024 Reported: 10/29/2024 Patient Type: [facility] SPECIMEN Service: UNKNOWN Location: Physician(s): Reyna Morgan M.D. FINAL DIAGNOSIS A. Urine, bladder, void: - Rare atypical urothelial cell, suspicious for high grade urothelial carcinoma nawaf/10/28/2024 15:30 By this signature, I attest that the above diagnosis is based upon my personal examination of the slides(and/or other material indicated in the diagnosis). Golden Hansne DO Report Electronically Reviewed and Signed Out By Golden Hansen DO 10/29/2024 14:38:40 Azar Borrero [facility](ASCP) Gross Description A. Urine, bladder, void: 100 [...] Surgical Pathology and Flow Cytometry Departments at [facility] as part of an ongoing software quality analyst program and in compliance with federally mandated [...] Surgical Pathology and Flow Cytometry Departments of [facility]. It has not been cleared or approved by the U. S. Food and Drug Administration. Reyna Morgan MD LAB CYTOLOGY ORDERABLES Final Re sult PATHOLOGY [facility] 3rd Floor [place], [place] [phone] * Urine culture Urine, clean voided (10/24/2024 9:50 AM CDT) Report Final Report: No growth Urine, clean voided 10/24/2024 9:50 AM CDT 10/24/2024 3:08 PM CDT Narrative [facility] - 10/25/2024 3:56 PM CDT Testing performed by [facility] Microbiology Laboratory ([phone]) Reyna Morgan MD LAB MICROBIOLOGY - GENERAL ORDER KENDY Final Result Performing Organization Address City/[facility]/ZIP Co de Phone Number [facility] [place] [address] * Post-Discharge Dressing Care (10/17/2024 1:31 PM CDT) Emerald Ryan RN - 10/17/2024 1:31 PM CDT Wound care applied per orders Left groin ulcer EPC to the periwound thin layer Aquacel Extra cover with dry dressing Gluteal fold: please apply Aquacel Extra and cover with Dry dressing Follow up in one month Yadira Lazcano [facility] Final Re sult * [...] it. Electronically signed by: Dorie Fraga M.D. us Maria Ines Sauceda MD IM CT PROCEDURES Final Res ult * eGFR [...] 6 AM CDT 01/25/2024 12:24 PM CDT Melva Riggs MD LAB BLOOD ORDERABLES Final R esult [facility] [place] [address] * (ABNORMAL) Hemoglobin A1c (01/25/2024 11:36 AM CDT) Hgb A1C 7.6(H) 4.0 - 5.6 % Estimated Average Glucose 171 mg/dL [facility] Comment: The ADA recommends reporting an estimated [...] 11:36 AM CDT 01/25/2024 12:20 PM CDT Melva Riggs MD LAB BLOOD ORDERABLES Final R esult [facility] [place] [address] * (ABNORMAL) Lipid panel (01/25/2024 11:36 AM [...] on 2018. Triglycerides 134 <=149 mg/dL [facility] Comment: Interpretive Data Ages < or = [...] on 2018. HDL 39(L) >=40 mg/dL [facility] Comment: Interpretive Data Ages < or = [...] on 2018. LDL, calculated 56 <=129 mg/dL [facility] Comment: Interpretive Data Ages < or = [...] revised on 2018. Non-HDL Cholesterol 83 mg/dL [facility] Comment: Interpretive Data Ages < or = [...] last revised on 2018. Chol/HDL ratio 3 [facility] Blood Venous blood specimen / Unknown 01/25/2024 11:36 AM CDT 01/25/2024 12:20 PM CDT us Melva Riggs MD LAB BLOOD ORDERABLES Final R esult [facility] [place] [address] from Last 3 Months or Most Recently Relevant to Health Maintenance Insurance [facility] MEDICARE [facility] Address: [address] [address] [place] [address] [facility] MEDICARE [facility] Advance Directives For more information, please contact: [phone] * Full Code (Latest Code Status on File) Date Activated Date Inactivated Comments 07/17/2023 1:42 PM 07/25/2023 8:43 PM Care Teams Director Of Rotc Relationship Specialty Start Date End Date Willard Gilbert MD PCP - General 10/07/16
--- OUTSIDE RECORDS SUMMARY | 2024-12-09 11:04 | XMS_ITS | Continuity of Care Document ---
Author Organization [facility] Address [address] [place] [address] [address] [place] [address] Phone Care Team Providers Care Chief Specialist Leed Name Role Phone Coronado OD, Manoj Unavailable Unavailable Procedures Procedure Date Contact Lens Check Contact Lens, Gas Permeable, Spherical J [facility] Refraction No Charge Contact Lens Check CL Replacement - Vistakon Disp W/BW Soft [facility] Exam [facility] Treatment Refraction No Charge Contact Lens Check CL Replacement - Other Lens Mobule [facility] No Charge Contact Lens Check No Charge Contact Lens Check Eye Exam & Treatment Refraction Advance Directives Directive Yes / No Effective Date File Name No Information Encounters Encounter Description Practice Location Reason(s) For Visit Diagnoses Date Provider Providers Copied on Encounter [facility], [address] [place] [address] [address], [place], [place], [id number], [place] tel:[phone] [facility] No Information 7-201 0 Coronado OD Manoj. [address] [facility] , [address], [place], [address], [place]. tel:[phone] [facility], [address] [place] [address] [address], [place], [place], [id number], tel:[phone] [facility] [address] No Information Dec-2 3-200 9 Coronado OD Manoj. [address] , [address], [place], [place], [facility], [place]. tel:[phone] [facility], [address], [place], [place], [id number], tel:[phone] [facility] No Information Oct-0 9-200 8 Coronado OD Manoj. [address] , [address], [place], [place], [facility], [place]. tel:[phone] [facility], [address] [place] [address] [address], [place], [place], [id number], [place] tel:[phone] [facility] No Information Sep-2 6-200 8 Coronado OD Manoj. [address] , [address], [place], [facility], [place]. tel:[phone] [facility], [address] [place] [address] [address], [place], [place], [id number], [place] tel:[phone] [facility] No Information Sep-2 5-200 7 Coronado OD Manoj. [address] , [address], [place], [facility], [place]. tel:[phone] [facility], [address] [place] [address] [address], [place], [place], [id number], [place] tel:[phone] [facility] No Information Sep-1 3-200 7 Coronado OD Manoj. [address] , [address], [place], [facility], [place]. tel:[phone] [facility], [address] [place] [address] [address], [place], [place], [id number], [place] tel:[phone] [facility] No Information Sep-0 6-200 7 Coronado OD Manoj. [address] , [address], [place], [facility], [place]. tel:[phone] [facility], [address], [place], [place], [id number], [place] tel:[phone] [facility] No Information 3-200 7 Coronado OD Manoj. [address] , [address], [place], [address], [place]. tel:[phone] Family History Family Member Type Diagnosis Age At Onset No Information Payers Payer name Insurance type Covered green party ID Authoriza tion(s) No Information Social History Type Description Quantity Date Captured Comments Sex Male Smoking Status No Information Chief Complaint And Reason For Visit No Information Reason For Referral Reason For Referral No Information History Of Present Illness Encounter Date Complaint History Of Prese nt Illness No Information Functional Status Date Functional Assessmen t No Information Instructions Date Instruction Additional Infor mation No Information Assessments Type Assessment Date No Information Patient Care Teams Name Effective Dates (start - stop) Status Members No Information
--- OUTSIDE RECORDS SUMMARY | 2024-12-09 11:04 | XMS_ITS | Encounter Summary ---
Author Organization [facility] [place] [facility] Address [address] [place] [address] Phone Care Team Providers Care Maternity Floor Supervisor Name Role Phone Willard Gilbert MD Primary Care Provider [phone] Reason for Visit * Reason Onset Date Comments DVT MEDICATION 07/26/2023 Encounter Details Date Type Department Care Team (Late st Contact Info) Description 07/26/2023 Telephone [facility] Surgery [address] [facility] Advanced Medicine 6th [place] [address] [place] [address] Ryanne Johnson RN DVT MEDICATION Social History Tobacco Use Types Packs/Day Years [...] on file Legal Sex Male 8:51 PM TRICHOLOGIST Gender Identity Not on file Sexual Orientation Not on file documented as of this encounter Plan of Treatment Not on file documented as of this encounter Visit Diagnoses Not on filedocumented in this encounter Care Teams Maternity Floor Supervisor Relationship Specialty Start Date End Date Willard Gilbert MD PCP - General 10/07/16 documented as of this encounter
--- OUTSIDE RECORDS SUMMARY | 2024-12-09 11:04 | XMS_ITS | Encounter Summary ---
Author Organization [facility] [place] [facility] Address [address] [place] [address] Phone Care Team Providers Care Grove Worker Name Role Phone Willard Gilbert MD Primary Care Provider [phone] Reason for Visit * Reason Onset Date Comments AIR MATTRESS BED 07/13/2023 Encounter Details Date Type Department Care Team (Late st Contact Info) Description 07/13/2023 Telephone [facility] Surgery [address] [facility] Advanced Medicine 6th [place] [address] [place] [address] Ryanne Johnson RN AIR MATTRESS BED Social History Tobacco Use Types Packs/Day Years [...] on file Legal Sex Male 8:51 PM COOK 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
[2024-12-09] MEDS: cefTRIAXone 2 GM/NS 100 ML 2 GM/100 ML BAG IVPB (11:26)
[2024-12-09 11:27] LABS: Reflex Lactic Acid Yes or No Add Lactic
[2024-12-09] MEDS: SODIUM CHLORIDE 0.9% IV 1000 ML BAG IVPB (12:00)
[2024-12-09 12:34] LABS: Lactic Acid 1.5 mmol/L (0.7-2.0)
--- NOTE | 2024-12-09 13:21 | ED_ITS ---
HPI - General Adult General Chief complaint: Urogenital-Male Stated complaint: lower abd pain Time Seen by Provider: 12/09/24 08:04 Source: patient Mode of arrival: EMS Limitations: no limitations History of Present Illness HPI narrative: 84-year-old with a history of hypertension, diabetes, dementia, CAD status post transurethral resection of bladder tumor done on At [place] was brought in from home by EMS with a complaints of abdominal pain having difficulty in urinating . who is at bed side states she is unable to take him back to [place] , he has been there several times and is unable to do it any more , Pt . denies any fever ,no nausea or vomiting.He denies any blood in the urine , no diarrhea. Related Data Home Medications ?Medication ?Instructions ?Recorded ?Confirmed ?Last Taken ?Type aspirin 81 mg tablet,delayed 81 mg PO DAILY 08/06/24 08/21/24 Unknown History release (Adult Low Dose Aspirin) prednisone 10 mg tablet 10 mg PO DAILY 08/06/24 08/21/24 Unknown History bacitracin 500 unit/gram topical 1 applic topical BID 08/21/24 08/21/24 Unknown History ointment dibucaine 1 % topical ointment 1 applic topical ONCE PRN 08/21/24 08/21/24 Unknown History miconazole nitrate 2 % topical 1 applic topical BID 08/21/24 08/21/24 Unknown History cream (Antifungal (miconazole)) triamcinolone acetonide 0.1 % 1 applic topical DAILY 08/21/24 08/21/24 Unknown History topical cream Allergies Allergy/AdvReac Type Severity Reaction Status Date / Time finasteride Allergy Intermediate Hives Verified 08/21/24 07:58 JOSHUA Inhibitors Allergy Unknown Cough Verified 08/21/24 07:58 ARB-Angiotensin Receptor Allergy Unknown Cough Verified 08/21/24 07:58 Antagonist lisinopril Allergy Unknown Cough Verified 08/21/24 07:58 Review of Systems 2 Review of Systems: All systems reviewed & are unremarkable except as noted in HPI and below Constitutional: Constitutional: Reports no additional constitutional complaints Eyes: Eyes: Reports no additional eye complaints ENT: Reports system reviewed and no additional complaints, except as documented Cardiovascular: Cardiovascular: Reports no additional cardiovascular complaints Respiratory: Respiratory: Reports no additional respiratory complaints Gastrointestinal: Gastrointestinal: Reports as per HPI Musculoskeletal: Musculoskeletal: Reports no additional musculoskeletal complaints Integumentary/Breasts: Skin/Breast: Reports as per HPI Neurologic: Reports system reviewed and no additional complaints, except as documented [facility] Past Medical History Medical History Sacral ulcer Cerumen impaction Ataxia Debility BPH w urinary obs/LUTS Pilonidal cyst Spasm of lumbar paraspinous muscle Excessive daytime sleepiness BMI 33.0-33.9,adult Memory loss Essential hypertension Hip pain Abscess of axilla, right Leg edema CAD (coronary artery disease) Diabetes High cholesterol Chronic idiopathic constipation Need for vaccination Jock itch BMI 31.0-31.9,adult Polyuria BMI 32.0-32.9,adult MIRYAM on CPAP Surgical History Surgical History History of skin graft History of biopsy Incisional biopsies nonhealing wound buttocks 02/02/2022 History of incision and drainage i&d pilonidal cyst 09/06/21 Hx of CABG Family History Family History Sibling Carcinoma of colon Family history of diabetes mellitus in first degree relative Family history of coronary artery disease Family history of malignant neoplasm of breast in first degree relative Father Family history of coronary artery disease Mother , pneumonia Pneumonia Other Diabetes mellitus Family history of arthritis Family history of congenital heart disease Family history of heart disease in male family member before age 55 Family history of malignant neoplasm Social History Social History Smoking packs per day: 2.5 Smoking cigarettes per day: 50.0 Years smoked: 10 Smoking pack-years: 25.00 Smoking status: Former smoker Tobacco type: cigarettes Second hand tobacco smoke exposure: Yes Smoking end date: 07/10/77 Alcohol intake: current Drinks per week: 1 Alcohol use details: socially Substance use: never Substance use type: does not use Do You Feel Safe in your Home?: Yes Lack of Transportation: No Lack of Food: Never True Current Housing: I Have Housing Concerned About Future Housing: No Difficulty Paying Gas/Electric Bills: No Difficulty Paying for Meds: No Currently Unemployed: No Education: Master's Degree or Higher Difficulty w/ Childcare or Family Care: No Living arrangements: with family Additional living arrangements comments: lives with Occupation/Education: retired 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 HEAD: Normocephalic, atraumatic. EYES: PERRLA and EOMI. ENT: Nares clear, no rhinorrhea or epistaxis. Mucous membranes moist. NECK: Supple. CHEST: Clear to auscultation. No respiratory distress. HEART: Regular rate and rhythm. No murmur heard. Normal peripheral pulses. ABDOMEN: Soft, diffuse tenderness , nondistended, normal active bowel sounds. EXTREMITIES: Normal range of motion. No edema. SKIN: Warm, dry, no rash. NEURO: No focal deficits. Alert and oriented x3. PSYCH: Normal mood and affect. Course Vital Signs Vital signs: Vital Signs Temperature 37.1 C 12/09/24 07:55 Pulse Rate 90 12/09/24 07:55 Respiratory Rate 20 12/09/24 07:55 Blood Pressure 129/58 L 12/09/24 07:55 Pulse Oximetry 96 12/09/24 07:55 Oxygen Delivery Room Air 12/09/24 07:55 Temperature 36.7 C 12/09/24 11:56 Pulse Rate 91 12/09/24 11:56 Respiratory Rate 18 12/09/24 11:56 Blood Pressure 93/42 L 12/09/24 11:56 Pulse Oximetry 93 12/09/24 11:56 Oxygen Delivery Room Air 12/09/24 07:55 Medical Decision Making MDM Narrative Medical decision making narrative: 84-year-old with multiple medical problems. Recent cystoscopy done at [place] for bladder polyps here with diffuse abdominal pain, not feeling well exam diffuse tenderness. Will do abdominal workup which included CT. Differential Diagnosis Differential Diagnosis: UTI, bowel obstruction, perforation. Abscesses. Medical Records Medical records reviewed: Yes I reviewed the external patient's medical records. Vital Signs Vital Signs: Vital Signs Temperature 37.1 C 12/09/24 07:55 Pulse Rate 90 12/09/24 07:55 Respiratory Rate 20 12/09/24 07:55 Blood Pressure 129/58 L 12/09/24 07:55 Pulse Oximetry 96 12/09/24 07:55 Oxygen Delivery Room Air 06/02/25 07:55 Temperature 36.7 C 12/09/24 11:56 Pulse Rate 91 12/09/24 11:56 Respiratory Rate 18 12/09/24 11:56 Blood Pressure 93/42 L 12/09/24 11:56 Pulse Oximetry 93 12/09/24 11:56 Oxygen Delivery Room Air 12/09/24 07:55 Lab Data Lab results reviewed: Yes I reviewed the patient's lab results. 12/09/24 09:22 12/09/24 09:22 Labs: Lab Results 12/09/24 12/09/24 12/09/24 Range/Units 08:06 09:22 12:16 WBC 21.2 H (4.5-10.0) K/mm3 RBC 4.41 L (4.6-6.20) M/mm3 Hgb 12.5 L (14.0-18.0) g/dL Hct 37.8 L (42.0-52.0) % MCV 85.7 (80-100) fl MCH 28.3 (26-34) pg MCHC 33.1 (32-36) g/dl RDW 14.6 H (11.5-14.5) % Plt Count 292 (150-375) k/mm3 MPV 9.8 (7.4-10.4) fl Immature Gran % (Auto) 2.1 H (0-0.5) % Neut % (Auto) 92.4 H (45.5-73.1) % Lymph % (Auto) 1.1 L (18.3-44.2) % [facility] % (Auto) 4.2 (2.6-8.5) % Eos % (Auto) 0.0 (0-4.4) % Baso % (Auto) 0.2 (0.2-1.2) % Lymph # (Auto) 0.23 L (0.9-3.2) K/mm3 [facility] # (Auto) 0.9 H (0.1-0.6) K/mm3 Eos # (Auto) 0.0 (0-0.3) K/mm3 Baso # (Auto) 0.1 (0.0-0.1) K/mm3 Abs Immat Gran (auto) 0.44 H (0.00-0.031) K/mm3 Absolute Neuts (auto) 19.6 H (1.3-6.7) K/mm3 Absolute Nucleated RBC 0.000 (0.0-0.012) K/mm3 Nucleated RBC % 0.0 (0.0-0.2) % PT 14.9 H (11.1-14.7) Seconds INR 1.2 Sodium 136 L (137-145) mmol/L Potassium 3.7 (3.4-5.0) mmol/L Chloride 105 (98-107) mmol/L Carbon Dioxide 18 L (22-30) mmol/L Anion Gap 13 H (4-12) mmol/L BUN 30 H (9-20) mg/dL Creatinine 0.99 (0.7-1.3) mg/dL Estim Creat Clear Calc Not Reportable Estimated GFR > 60 (59 - ) Glucose 189 H (65-110) mg/dL Lactic Acid 2.5 H 1.5 (0.7-2.0) mmol/L Calcium 9.6 (8.4-10.2) mg/dL Total Bilirubin 0.8 (0.2-1.3) mg/dL AST 16 L (17-59) U/L ALT 21 (6-50) U/L Alkaline Phosphatase 78 (38-126) U/L Total Protein 6.0 L (6.3-8.2) g/dL Albumin 3.3 L (3.5-5.1) g/dL Urine Color Yellow (Yellow) Urine Appearance Turbid H (Clear) Urine pH 6.5 (5.0-9.0) Ur Specific [place] 1.034 (1.001-1.035) Urine Protein 2+ H (Negative) mg/dL Urine Glucose (UA) 3+ H (Negative) mg/dL Urine Ketones 1+ H (Negative) mg/dL Ur Blood (Man) 3+ H (Negative) Urine Nitrate Positive H (Negative) Urine Bilirubin Negative (Negative) Urine Urobilinogen 1.0 (<2.0) mg/dL Add Ur Microanalysis Reviewed Leukocyte Esterase Rfl 3+ H (Negative) JUAN FRANCISCO/UL Urine RBC >100 H (0-2) /hpf Urine WBC >100 H (0-3) /hpf Urine WBC Clumps Present H (None) /HPF Ur Squamous Epith Cells Occasional (Few) /hpf Urine Bacteria 4+ H /hpf Urine Casts 3-5 Urine Yeast (Budding) Present H (None) /hpf Imaging Data Radiologist's impression: ITS Impressions Abdomen/Pelvis CT 12/09/24 10:25 IMPRESSION: 1. Abnormal bladder wall thickening with surrounding fatty infiltration and fluid, suspicious for acute cystitis. Clinically correlate. 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 Discharge Plan Discharge Clinical Impression: Cystitis, SIRS (systemic inflammatory response syndrome) Abdominal pain Qualifiers: Abdominal location: generalized Qualified Code(s): R10.84 - Generalized abdominal pain Patient Disposition: Still a Patient Condition: Stable Patient Language: Polish Prescriptions: No Action nitroglycerin 0.4 mg tablet, sublingual 0.4 mg SUBLINGUAL Q5M PRN (Reason: chest pain) Qty: 25 0RF Rx Instructions: until response; do not exceed 3 doses per episode aspirin [Adult Low Dose Aspirin] 81 mg tablet,delayed release (DR/EC) 81 mg PO DAILY prednisone 10 mg tablet 10 mg PO DAILY gabapentin 100 mg capsule 100 mg PO TID Qty: 90 1RF bacitracin 500 unit/gram ointment 1 applic topical BID Patient Comments: from senior telecommunications consultant triamcinolone acetonide 0.1 % cream 1 applic topical DAILY Patient Comments: from senior telecommunications consultant dibucaine 1 % ointment 1 applic topical ONCE PRN Patient Comments: from senior telecommunications consultant Rx Instructions: for tip of penis pain miconazole nitrate [Antifungal (miconazole)] 2 % cream 1 applic topical BID Patient Comments: from senior telecommunications consultant nystatin 100,000 unit/gram powder 1 applic topical BID Qty: 30 0RF nystatin 100,000 unit/gram cream 1 applic topical BID Qty: 30 0RF donepezil [Aricept] 5 mg tablet 5 mg PO QHS Qty: 30 3RF amlodipine 5 mg tablet 5 mg PO DAILY Qty: 90 1RF metoprolol succinate 50 mg tablet extended release 24 hr 50 mg PO DAILY Qty: 90 1RF doxazosin 2 mg tablet See Rx Instructions .ROUTE .COMPLEX Qty: 90 1RF Dose Instruction: TAKE 1 TABLET BY MOUTH EVERY DAY AT BEDTIME Rx Instructions: TAKE 1 TABLET BY MOUTH EVERY DAY AT BEDTIME Jardiance 25 mg tablet 25 mg PO QAM Qty: 90 1RF metformin 500 mg tablet extended release 24 hr See Rx Instructions .ROUTE .COMPLEX Qty: 360 0RF Dose Instruction: TAKE 4 TABLETS BY MOUTH ONCE DAILY IN THE MORNING Rx Instructions: TAKE 4 TABLETS BY MOUTH ONCE DAILY IN THE MORNING rosuvastatin 40 mg tablet 40 mg PO DAILY Qty: 90 3RF glimepiride 1 mg tablet 1 mg PO QAM Qty: 90 1RF Rx Instructions: administer with breakfast meloxicam 15 mg tablet See Rx Instructions .ROUTE .COMPLEX Qty: 90 1RF Dose Instruction: Take 1 tablet by mouth once daily Rx Instructions: Take 1 tablet by mouth once daily dutasteride 0.5 mg capsule 0.5 mg PO DAILY Qty: 90 0RF levothyroxine 75 mcg tablet 75 mcg PO DAILY Qty: 90 1RF Follow-up/Referrals: Willard Gilbert MD [Primary Care Provider] - Time of Disposition: 13:22
[2024-12-09] MEDS: SODIUM CHLORIDE 0.9% IV 1,000 ML 125 ML IV CONT (14:26)
[2024-12-09 15:25] LABS: Lactic Acid Reflex 1.6 mmol/L (0.7-2.0)
--- NOTE | 2024-12-09 16:03 | P.HP_ITS ---
H&P: HPI History of Present Illness Date/Time: 12/09/24 16:03 Chief Complaint: Abdominal pain and difficulty urinating Narrative: 84-year-old male with a past medical history of dementia, essential hypertension, hypothyroidism, type 2 diabetes, pyoderma gangrenosum and high- grade papillary urothelial carcinoma status post transurethral resection 11/27/2024 at [facility] who presented to the ER via EMS from home due to abdominal pain and difficulty urinating. Patient had surgery on 11/27/2024 and had his Nuñez catheter removed on 12/05/2024. Patient's denies patient having any blood in his urine fever. He has been having normal bowel movements. She reports that the day before his Nuñez was removed the patient began having lower abdominal pain. After the Nuñez was removed the patient was getting up numerous times to urinate. He reports discomfort in his lower abdomen but cannot provide much else for his details. He also has significant pain over wound in his left groin. The patient does have pyoderma gangrenosa and frequently as painful skin lesions. His reports that the lesion in his left groin had almost healed up after his last steroid injection about a month ago but it started to enlarge again a week or so ago. He is on an oral steroid taper that was just decreased from 60 mg a day down to 40 mg a day 6 days ago. She reports that he is post to decrease the dose every 2 weeks. Patient's lactic acid was elevated to 2.5, WBC was 21.2 and blood pressure was mildly low 93/42. The patient's reported she was unable to taken back to [facility] and that he has been back to the facility multiple times and she cannot make the trip anymore and request that the patient's stay here for treatment. Patient was started on Rocephin for empiric antibiotic therapy for UTI. He received 1 L fluid bolus in the ER and was started on maintenance fluids. The patient is incontinent of urine on arrival to the medical floor. He is having some lower abdominal pain. Bladder scan performed demonstrated only 150 mL of retained urine. The patient's provides most of history due to patient's history of dementia. The patient is alert and conversational but usually is confused as to date and time per 's report. The patient has moderate hearing loss which also complicates history process. gave me access to the patient's MyChart which provided the majority of information. Review of Systems 2 Review of Systems: Unobtainable due to patient's history of dementia. [facility] Past Medical History Medical History (Updated 12/09/24 @ 19:19 by Libia Durham DO) 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 The patient's was told that he no longer needed CPAP Surgical History Surgical History (Updated 12/09/24 @ 19:15 by Libia Durham DO) History of colon surgery Cholesteatoma of attic of left ear History of coronary artery stent placement (~2014) X2 or 3 History of skin graft With skin flap History of biopsy Incisional biopsies nonhealing wound buttocks 02/02/2022 History of incision and drainage i&d pilonidal cyst 09/06/21 Hx of CABG (~2003) 2 vessel MASSEY to LAD saphenous vein graft to obtuse marginal Family History Family History Sibling Carcinoma of colon Family history of diabetes mellitus in first degree relative Family history of coronary artery disease Family history of malignant neoplasm of breast in first degree relative Father Family history of coronary artery disease Mother , pneumonia Pneumonia Other Diabetes mellitus Family history of arthritis Family history of congenital heart disease Family history of heart disease in male family member before age 55 Family history of malignant neoplasm Social History Social History (Updated 12/09/24 @ 19:10 by Libia Durham DO) Social History: The patient lives with his of over 40 years. He has 2 biologic children and 1 stepchild. 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 He has a distant history of smoking 20 pack per year. He quit smoking in the in then chewed tobacco for another 10 years and quit in 1991. He used to drink a few alcoholic beverages a month but only rarely drinks alcohol now. Code status: DNR/DNI Healthcare power of workers compensation defense attorney: Smoking packs per day: 2.5 Smoking cigarettes per day: 50.0 Years smoked: 10 Smoking pack-years: 25.00 Smoking status: Former smoker Second hand tobacco smoke exposure: Yes Alcohol intake: current Drinks per week: 1 Alcohol use details: socially Substance use: never Substance use type: does not use Do You Feel Safe in your Home?: Yes Lack of Transportation: No Lack of Food: Never True Current Housing: I Have Housing Concerned About Future Housing: No Difficulty Paying Gas/Electric Bills: No Difficulty Paying for Meds: No Currently Unemployed: No Education: Master's Degree or Higher Difficulty w/ Childcare or Family Care: No Living arrangements: with family Additional living arrangements comments: lives with Occupation/Education: retired 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 Gender identity (if verbalized by the patient): Male Spiritual care concerns: No Meds Home Medications and Allergies Home Medications ?Medication ?Instructions ?Recorded ?Confirmed ?Type nitroglycerin 0.4 mg sublingual 0.4 mg sublingual Q5M PRN chest 01/16/23 12/09/24 Rx tablet pain #25 tabs nystatin 100,000 unit/gram topical 1 applic topical BID #30 grams 02/29/24 12/09/24 Rx cream nystatin 100,000 unit/gram topical 1 applic topical BID #30 grams 02/29/24 12/09/24 Rx powder donepezil 5 mg tablet (Aricept) 5 mg PO QHS #30 tabs 05/29/24 12/09/24 Rx amlodipine 5 mg tablet 5 mg PO DAILY #90 tabs 07/31/24 12/09/24 Rx metoprolol succinate 50 mg 50 mg PO DAILY #90 tabs 07/31/24 12/09/24 Rx tablet,extended release 24 hr aspirin 81 mg tablet,delayed 81 mg PO DAILY 08/06/24 12/09/24 History release (Adult Low Dose Aspirin) doxazosin 2 mg tablet See Rx Instructions .Route 08/17/24 12/09/24 Rx .COMPLEX #90 tabs bacitracin 500 unit/gram topical 1 applic topical BID 08/21/24 12/09/24 History ointment dibucaine 1 % topical ointment 1 applic topical QID PRN Pain of 08/21/24 12/09/24 History groin ulcer triamcinolone acetonide 0.1 % 1 applic topical DAILY 08/21/24 12/09/24 History topical cream empagliflozin 25 mg tablet 25 mg PO QAM #90 tabs 09/12/24 12/09/24 Rx (Jardiance) glimepiride 1 mg tablet 1 mg PO QAM #90 tabs 09/27/24 12/09/24 Rx metformin 500 mg tablet,extended See Rx Instructions .Route 09/27/24 12/09/24 Rx release 24 hr .COMPLEX #360 tabs rosuvastatin 40 mg tablet 40 mg PO DAILY #90 tabs 09/27/24 12/09/24 Rx meloxicam 15 mg tablet See Rx Instructions .Route 10/17/24 12/09/24 Rx .COMPLEX #90 tabs dutasteride 0.5 mg capsule 0.5 mg PO DAILY #90 caps 11/08/24 12/09/24 Rx levothyroxine 75 mcg tablet 75 mcg PO DAILY #90 tabs 11/10/24 12/09/24 Rx cholecalciferol (vitamin D3) 50 2,000 unit PO DAILY 12/09/24 12/09/24 History mcg (2,000 unit) capsule prednisone 20 mg tablet 40 mg PO DAILY 12/09/24 12/09/24 History Allergies Allergy/AdvReac Type Severity Reaction Status Date / Time finasteride Allergy Intermediate Hives Verified 08/21/24 07:58 JOSHUA Inhibitors Allergy Unknown Cough Verified 08/21/24 07:58 ARB-Angiotensin Receptor Allergy Unknown Cough Verified 08/21/24 07:58 Antagonist lisinopril Allergy Unknown Cough Verified 08/21/24 07:58 Vital Signs Vital Signs - 24 hr 12/09/24 07:55 12/09/24 09:03 12/09/24 10:35 Temperature 98.7 F 98.2 F 98.3 F Pulse Rate 90 95 96 Respiratory Rate 20 20 22 H Blood Pressure 129/58 L 112/51 L 119/64 Pulse Oximetry 96 94 96 Oxygen Delivery Room Air 12/09/24 11:30 12/09/24 11:56 12/09/24 14:13 Temperature 98.4 F 98.0 F 98.0 F Pulse Rate 96 91 91 Respiratory Rate 20 18 18 Blood Pressure 127/65 93/42 L 103/50 L Pulse Oximetry 96 93 95 Oxygen Delivery 12/09/24 16:00 Temperature 98.2 F Pulse Rate 83 Respiratory Rate 20 Blood Pressure 104/49 L Pulse Oximetry 95 Oxygen Delivery Exam 2 Narrative: Weight 89.1 kg BMI 26.6 Const: Other: Acutely ill-appearing, elderly, obese HENMT: Other: Mucous membranes are dry, no oral pharyngeal erythema, crowded posterior oropharynx with class 3 ASA Eyes: Other: Pupils are equal and reactive, bilateral lens implants noted, no scleral icterus Neck: Other: No JVD, large neck circumference Resp: Other: Clear to auscultation bilaterally anterior velazquez, no increased work of breathing Cardio: Other: Regular rate, regular rhythm, 2/6 systolic murmur, no JVD GI: Other: Obese, soft, tender in suprapubic region, normoactive bowel sounds : Other: Uncircumcised male, incontinent of urine, large ulcer in the left groin please see nursing documentation for size and imaging Skin: Other: Large ulcer in the left groin with yellow base, no overt drainage, appearance consistent with patient's history of pyoderma gangrenosum, sacral wounds as well Neuro: Other: Alert oriented to person, place and situation confused as to the month in year, speech is clear patient is only answering direct questions, no facial asymmetry Extrem: Other: 5/5 assistant finance manager strength bilaterally, no clubbi ng, cyanosis or edema Psych: Other: Flat affect, cooperative H&P: Results Labs Labs: Laboratory Tests 12/09/24 09:22 12/09/24 09:22 12/09/24 12/09/24 12/09/24 08:06 09:22 12:16 WBC 21.2 H RBC 4.41 L Hgb 12.5 L Hct 37.8 L MCV 85.7 MCH 28.3 MCHC 33.1 RDW 14.6 H Plt Count 292 MPV 9.8 Immature Gran % (Auto) 2.1 H Neut % (Auto) 92.4 H Lymph % (Auto) 1.1 L [place] % (Auto) 4.2 Eos % (Auto) 0.0 Baso % (Auto) 0.2 Lymph # (Auto) 0.23 L [place] # (Auto) 0.9 H Eos # (Auto) 0.0 Baso # (Auto) 0.1 Abs Immat Gran (auto) 0.44 H Absolute Neuts (auto) 19.6 H Absolute Nucleated RBC 0.000 Nucleated RBC % 0.0 PT 14.9 H INR 1.2 Sodium 136 L Potassium 3.7 Chloride 105 Carbon Dioxide 18 L Anion Gap 13 H BUN 30 H Creatinine 0.99 Estim Creat Clear Calc Not Reportable Estimated GFR > 60 Glucose 189 H Lactic Acid 2.5 H 1.5 Calcium 9.6 Total Bilirubin 0.8 AST 16 L ALT 21 Alkaline Phosphatase 78 Total Protein 6.0 L Albumin 3.3 L Urine Color Yellow Urine Appearance Turbid H Urine pH 6.5 Ur Specific Tate 1.034 Urine Protein 2+ H Urine Glucose (UA) 3+ H Urine Ketones 1+ H Ur Blood (Man) 3+ H Urine Nitrate Positive H Urine Bilirubin Negative Urine Urobilinogen 1.0 Add Ur Microanalysis Reviewed Leukocyte Esterase Rfl 3+ H Urine RBC >100 H Urine WBC >100 H Urine WBC Clumps Present H Ur Squamous Epith Cells Occasional Urine Bacteria 4+ H Urine Casts 3-5 Urine Yeast (Budding) Present H 12/09/24 14:22 WBC RBC Hgb Hct MCV MCH MCHC RDW Plt Count MPV Immature Gran % (Auto) Neut % (Auto) Lymph % (Auto) [place] % (Auto) Eos % (Auto) Baso % (Auto) Lymph # (Auto) [place] # (Auto) Eos # (Auto) Baso # (Auto) Abs Immat Gran (auto) Absolute Neuts (auto) Absolute Nucleated RBC Nucleated RBC % PT INR Sodium Potassium Chloride Carbon Dioxide Anion Gap BUN Creatinine Estim Creat Clear Calc Estimated GFR Glucose Lactic Acid 1.6 Calcium Total Bilirubin AST ALT Alkaline Phosphatase Total Protein Albumin Urine Color Urine Appearance Urine pH Ur Specific Tate Urine Protein Urine Glucose (UA) Urine Ketones Ur Blood (Man) Urine Nitrate Urine Bilirubin Urine Urobilinogen Add Ur Microanalysis Leukocyte Esterase Rfl Urine RBC Urine WBC Urine WBC Clumps Ur Squamous Epith Cells Urine Bacteria Urine Casts Urine Yeast (Budding) Impressions Abdomen/Pelvis CT 12/09/24 10:25 IMPRESSION: 1. Abnormal bladder wall thickening with surrounding fatty infiltration and fluid, suspicious for acute cystitis. Clinically correlate. 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 All imaging and EKGs personally reviewed and interpreted. And unless stated otherwise agree with radiologic and cardiology interpretation. Assessment and Plan Assessment and plan (1) UTI (urinary tract infection): Qualifiers: Hematuria presence: with hematuria Urinary tract infection type: acute cystitis Qualified Code(s): N30.01 - Acute cystitis with hematuria Code(s): N39.0 - Urinary tract infection, site not specified Status: Acute (2) Bladder cancer: Qualifiers: Bladder location: unspecified site Qualified Code(s): C67.9 - Malignant neoplasm of bladder, unspecified Code(s): C67.9 - Malignant neoplasm of bladder, unspecified Status: Acute (3) Type 2 diabetes mellitus with hyperglycemia: Qualifiers: Diabetes mellitus half-way insulin use: without moth exterminator use Q ualified Code(s): E11.65 - Type 2 diabetes mellitus with hyperglycemia Code(s): E11.65 - Type 2 diabetes mellitus with hyperglycemia Status: Chronic (4) Essential hypertension: Code(s): I10 - Essential (primary) hypertension Status: Chronic (5) Pyoderma gangrenosum: Code(s): L88 - Pyoderma gangrenosum Status: Acute Plan Patient has acute cystitis following recent cystoscopy with transurethral resection of urothelial carcinoma. Patient has been started on empiric antibiotic therapy with Rocephin. Will monitor urine output closely. Urine cultures and blood cultures are pending. Will repeat CBC in a.m.. Patient does have a mildly low serum bicarb and elevated BUN suggesting some component of dehydration. Will monitor input and output closely. Will continue IV fluid hydration for 2 L at 125 mL an hour and then re-evaluate fluid status with repeat BMP. Patient's blood pressures were mildly low in the ER. Will monitor closely in consider restarting antihypertensives depending on response to fluid hydration. Will hold the patient's home Jardiance given acute UTI and dehydration. Will also hold metformin. Will start low-dose sliding scale insulin with Accu-Cheks a.c. HS. Hypoglycemia protocol has also been ordered. Will hold the patient's Norvasc given his mildly low blood pressure and will continue patient's home metoprolol. . Wound care consult for recommendations for dressings of the patient's left inguinal pyoderma gangrenosum ulcer. Will continue with topical analgesics. Will continue patient's home steroid taper. Patient has been admitted as observation status. Quality VTE Prophylaxis VTE prophylaxis: mechanical ordered (SCDs) Hospitalist MIPS Advance Care Plan I have confirmed that the patient's Advanced Care Plan is present, code status is documented, or surrogate decision maker is listed in patient medical record.: Yes Medication Reconciliation I have utilized all available resources to obtain, update and review the patients current medications (includes all prescriptions, OTC, herbals, cannabis, and nutritional supplements).: Yes
[2024-12-09 17:05] LABS: Glucose Point of Care 164 mg/dl (65-105)
[2024-12-09] MEDS: ACETAMINOPHEN 325 MG TABLET 650 MG PO (17:08)
[2024-12-09] MEDS: FLUCONAZOLE 200 MG/NACL 100 ML 200 MG/100 ML BAG 100 MG IVPB (17:08)
--- NOTE | 2024-12-09 18:56 | PCRCNOTE ---
Spoke with family and patient does not wear BIPAP/ CPAP since he was seen at [place] and was told he didn't need it anymore.
[2024-12-09] MEDS: MORPHINE SULFATE (*CRX) 2 MG/ML INJ IV PUSH (19:48)
[2024-12-09] MEDS: predniSONE 20 MG TABLET 40 MG PO (19:48)
[2024-12-09] MEDS: DONEPEZIL HCL 5 MG TABLET PO (19:48)
[2024-12-09 21:56] LABS: Glucose Point of Care 191 mg/dl (65-105)
[2024-12-09] MEDS: DOXAZOSIN MESYLATE 2 MG TABLET BY MOUTH (22:21)
[2024-12-10] MEDS: SODIUM CHLORIDE 0.9% IV 1,000 ML 125 ML IV CONT (00:58)
[2024-12-10] MEDS: LEVOTHYROXINE SODIUM 75 MCG TABLET PO (05:08)
[2024-12-10 06:00] VITALS: BP 124/61; PULSE 85; RESP 18; TEMP 35.9; O2SAT 95
[2024-12-10 07:04] LABS: Basophils Absolute Auto 0.1 K/mm3 (0.0-0.1); Basophils Percent Auto 0.2 % (0.2-1.2); Hematocrit 34.1 % (42.0-52.0); Hemoglobin 10.9 g/dL (14.0-18.0); Immature Granulocyte Absolute 0.15 K/mm3 (0.00-0.031); Immature Granulocyte Percent A 0.6 % (0-0.5); Lymphocytes Absolute Auto 0.53 K/mm3 (0.9-3.2); Lymphocytes Percent Auto 2.3 % (18.3-44.2); Mean Corpuscular Hemoglobin 28.3 pg (26-34); Mean Corpuscular Volume 88.6 fl (80-100); Mean Platelet Volume 10.2 fl (7.4-10.4); Monocytes Absolute Auto 0.8 K/mm3 (0.1-0.6); Monocytes Percent Auto 3.5 % (2.6-8.5); Neutrophils Absolute Auto 21.9 K/mm3 (1.3-6.7); Neutrophils Percent Auto 93.4 % (45.5-73.1); Platelet Count Result 268 k/mm3 (150-375); Red Blood Count 3.85 M/mm3 (4.6-6.20); Red Cell Distribution Width 15.1 % (11.5-14.5); White Blood Count 23.5 K/mm3 (4.5-10.0)
[2024-12-10 07:14] LABS: Anion Gap 8 mmol/L (4-12); Blood Urea Nitrogen 20 mg/dL (9-20); Calcium 8.8 mg/dL (8.4-10.2); Carbon Dioxide 20 mmol/L (22-30); Chloride 106 mmol/L (98-107); Estimated CRCL calculation 62 ml/min; Estimated Glomerular Filt Rate > 60; Glucose 157 mg/dL (65-110); Potassium 3.9 mmol/L (3.4-5.0); Sodium 134 mmol/L (137-145)
[2024-12-10 08:08] LABS: Anisocytosis 1+; Platelet Estimate Adequate (Adequate); Schistocytes None Seen
[2024-12-10 09:05] LABS: Glucose Point of Care 157 mg/dl (65-105)
--- NOTE | 2024-12-10 09:58 | P.PNIM_ITS ---
Progress Note: A&P Assessment and Plan (1) UTI (urinary tract infection): Qualifiers: Hematuria presence: with hematuria Urinary tract infection type: acute cystitis Qualified Code(s): N30.01 - Acute cystitis with hematuria Code(s): N39.0 - Urinary tract infection, site not specified Status: Acute Assessment and Plan: Acute cystitis following recent cystoscopy with transurethral resection of urothelial carcinoma Started on Rocephin Monitor urine culture (2) Bladder cancer: Qualifiers: Bladder location: unspecified site Qualified Code(s): C67.9 - Malignant neoplasm of bladder, unspecified Code(s): C67.9 - Malignant neoplasm of bladder, unspecified Status: Acute Assessment and Plan: as above (3) Type 2 diabetes mellitus with hyperglycemia: Qualifiers: Diabetes mellitus director long term care insulin use: without nursing home use Qualified Code(s): E11.65 - Type 2 diabetes mellitus with hyperglycemia Code(s): E11.65 - Type 2 diabetes mellitus with hyperglycemia Status: Chronic Assessment and Plan: SSI hypoglycemia protocol (4) Essential hypertension: Code(s): I10 - Essential (primary) hypertension Status: Chronic Assessment and Plan: hold antihypertensive medications due to low blood pressure (5) Pyoderma gangrenosum: Code(s): L88 - Pyoderma gangrenosum Status: Acute Assessment and Plan: continue wound care currently patient has in perirectal area and left inguinal area Subjective Date/time seen: 12/10/24 09:58 Interval history: patient was evaluated the bedside. His was present during the evaluation. Patient has the multiple visits to wants more than 50 times in past year. as per his the patient has remote history of triple bypass. 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 Patient was diagnosed with urothelial carcinoma 6 months ago and underwent possible transurethral resection of bladder tumor. Unfortunately she reports regression of tumor and underwent again TURBT? on 27 Nov 2024. I believe patient was having Nuñez and to after removal of the Nuñez patient started having pain Review of Systems Review of Systems: Unobtainable due to patient's history of dementia. Exam Narrative: Weight 89.1 kg BMI 26.6 Const: Other: Acutely ill-appearing, elderly, obese HENMT: Other: Mucous membranes are dry, no oral pharyngeal erythema, crowded posterior oropharynx with class 3 ASA Eyes: Other: Pupils are equal and reactive, bilateral lens implants noted, no scleral icterus Neck: Other: No JVD, large neck circumference Resp: Other: Clear to auscultation bilaterally anterior velazquez, no increased work of breathing Cardio: Other: Regular rate, regular rhythm, 2/6 systolic murmur, no JVD GI: Other: Obese, soft, tender in suprapubic region, normoactive bowel sounds : Other: Uncircumcised male, incontinent of urine, large ulcer in the left groin please see nursing documentation for size and imaging Skin: Other: Large ulcer in the left groin with yellow base, no overt drainage, appearance consistent with patient's history of pyoderma gangrenosum, sacral wounds as well Neuro: Other: Alert oriented to person, place and situation confused as to the month in year, speech is clear patient is only answering direct questions, no facial asymmetry Extrem: Other: 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, no clubbi ng, cyanosis or edema Psych: Other: Flat affect, cooperative Objective Data Vital Signs Vital Signs: Vital Signs - 24 hr 12/09/24 10:35 12/09/24 11:30 12/09/24 11:56 Temperature 98.3 F 98.4 F 98.0 F Pulse Rate 96 96 91 Respiratory Rate 22 H 20 18 Blood Pressure 119/64 127/65 93/42 L Pulse Oximetry 96 96 93 Oxygen Delivery 12/09/24 14:13 12/09/24 16:00 12/09/24 20:00 Temperature 98.0 F 98.2 F Pulse Rate 91 83 Respiratory Rate 18 20 Blood Pressure 103/50 L 104/49 L Pulse Oximetry 95 95 Oxygen Delivery Room Air 12/09/24 22:00 12/09/24 23:30 12/10/24 06:00 Temperature 97.1 F L 96.7 F L Pulse Rate 84 85 Respiratory Rate 18 18 Blood Pressure 104/56 L 124/61 Pulse Oximetry 96 96 95 Oxygen Delivery Room Air Intake/Output Intake/Output: Intake & Output 12/07/24 12/08/24 12/09/24 12/10/24 23:59 23:59 23:59 23:59 Intake Total 1340 0 Balance 1340 0 Meds/Results Medications: Active Medications Generic Name Dose Route Start Last Admin Trade Name Freq PRN Reason Stop Dose Admin Acetaminophen 650 mg 12/09/24 13:22 12/09/24 17:08 Acetaminophen 325 Mg Tablet PO 650 mg Q4H PRN Administration Mild Pain (1-3) or Fever Aspirin 81 mg 12/10/24 09:00 Aspirin 81 Mg Enteric Tablet PO DAILY NEHEMIAH Bacitracin 1 applic 12/10/24 09:00 Bacitracin Ointment 15 Gm Tube TOPICAL BID NEHEMIAH Dextrose 12.5 gm 12/09/24 16:16 Dextrose 50% 25 Gm/50 Ml Syringe IV PUSH PRN PRN Hypoglycemia Protocol Dibucaine 1 applic 12/09/24 19:26 Dibucaine 1% Ointment 30 Gm Tube TOPICAL QID PRN Pain of groin ulcer Donepezil HCl 5 mg 12/09/24 21:00 12/09/24 19:48 Donepezil Hcl 5 Mg Tablet PO 5 mg QHS NEHEMIAH Administration Doxazosin Mesylate 2 mg 12/09/24 21:00 12/09/24 22:21 Doxazosin Mesylate 2 Mg Tablet BY MOUTH 2 mg HS [facility] Administration Dutasteride 0.5 mg 12/10/24 09:00 Dutasteride 0.5 Mg Capsule PO DAILY [facility] Glimepiride 1 mg 12/10/24 09:00 Glimepiride 1 Mg Tablet PO QAM NEHEMIAH Glucagon 1 mg 12/09/24 16:16 Glucagon For Inj 1 Mg Vial IM PRN PRN Hypoglycemia Protocol Glucose 15 gm 12/09/24 16:16 Glucose Oral Gel 15 Gm Of Glucse In 37.5 Gm Tube PO PRN PRN Hypoglycemia Protocol Fluconazole 200 mg in 100 mls @ 100 mls/hr 12/09/24 16:10 12/09/24 17:08 Diflucan 200 Mg/Nacl 100 Ml IVPB 100 mls/hr DAILY NEHEMIAH Administration Ceftriaxone Sodium 1 gm in 50 mls @ 100 mls/hr 12/10/24 12:00 Rocephin 1 Gm/Ns 50 Ml IVPB Q24H NEHEMIAH Dextrose 1,000 mls @ 100 mls/hr 12/09/24 16:16 Dextrose 5% 1,000 Ml IVPB PRN PRN Hypoglycemia Protocol Insulin Aspart 1 - 2 units 12/09/24 21:00 12/09/24 22:19 Insulin Aspart (*Bkc) 100 Units/Ml SUB-Q Not Given HS [facility] Protocol Insulin Aspart 2 - 5 units 12/09/24 17:00 12/09/24 17:13 Insulin Aspart (*Bkc) 100 Units/Ml SUB-Q Not Given TIDWM [facility] Protocol Levothyroxine Sodium 75 mcg 12/10/24 06:30 12/10/24 05:08 Levothyroxine Sodium 75 Mcg Tablet PO 75 mcg DAILY@0630 [facility] Administration Meloxicam 15 mg 12/10/24 09:00 Meloxicam 7.5 Mg Tablet PO 01/10/25 08:59 DAILY [facility] Metformin HCl 2,000 mg 12/10/24 09:00 Metformin Hcl Xr 500 Mg Tab.Sr.24h BY MOUTH DAILY [facility] Metoprolol Succinate 50 mg 12/10/24 09:00 Metoprolol Succinate Ext Rel 50 Mg Tabcr PO DAILY [facility] Miconazole Nitrate 1 applic 12/10/24 09:00 Miconazole Nitrate 2% Cream 30 Gm Tube TOPICAL BID [facility] Miscellaneous Information 0 each 12/09/24 00:01 12/10/24 00:58 Bacitracin Add Site Of Use XX 01/08/25 00:00 Not Given CLARIFY [facility] Miscellaneous Information 0 each 12/09/24 00:01 12/10/24 00:58 Triamcinolone Add Site Of Use XX 01/08/25 00:00 Not Given CLARIFY [facility] Morphine Sulfate 2 mg 12/09/24 13:22 12/09/24 19:48 Morphine Sulfate (*Crx) 2 Mg/Ml Inj IV PUSH 2 mg Q2H PRN Administration Pain Rated 7-10 Nitroglycerin 0.4 mg 12/09/24 18:28 Nitroglycerin Sl 0.4 Mg Tablet SUBLINGUAL Q5M PRN chest pain Ondansetron HCl 4 mg 12/09/24 13:22 12/09/24 19:49 Ondansetron Inj 4 Mg/2 Ml Vial IV PUSH 4 mg Q4H PRN Administration Nausea Prednisone 40 mg 12/09/24 19:30 12/09/24 19:48 Prednisone 20 Mg Tablet PO 12/17/24 09:01 40 mg DAILY [facility] Administration Prednisone 20 mg 12/18/24 09:00 Prednisone 20 Mg Tablet PO 12/31/24 09:01 DAILY [facility] Rosuvastatin Calcium 40 mg 12/10/24 09:00 Rosuvastatin 20 Mg Tablet PO DAILY [facility] Triamcinolone Acetonide 1 applic 12/10/24 09:00 Triamcinolone Acet 0.1% Cream 15 Gm Tube TOPICAL DAILY [facility] Vitamin D 50 mcg 12/10/24 09:00 Cholecalciferol (Vitamin D3) 25 Mcg (1,000 Units) Tablet PO DAILY [facility] Radiology Results: ITS Impressions Abdomen/Pelvis CT 12/09/24 10:25 IMPRESSION: 1. Abnormal bladder wall thickening with surrounding fatty infiltration and fluid, suspicious for acute cystitis. Clinically correlate. 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 Labs Labs: Laboratory Results - last 24 hr 12/09/24 12/09/24 12/09/24 09:22 12:16 14:22 WBC 21.2 H RBC 4.41 L Hgb 12.5 L Hct 37.8 L MCV 85.7 MCH 28.3 MCHC 33.1 RDW 14.6 H Plt Count 292 MPV 9.8 Immature Gran % (Auto) 2.1 H Neut % (Auto) 92.4 H Lymph % (Auto) 1.1 L Bollinger % (Auto) 4.2 Eos % (Auto) 0.0 Baso % (Auto) 0.2 Lymph # (Auto) 0.23 L Bollinger # (Auto) 0.9 H Eos # (Auto) 0.0 Baso # (Auto) 0.1 Abs Immat Gran (auto) 0.44 H Absolute Neuts (auto) 19.6 H Absolute Nucleated RBC 0.000 Band Neutrophils % Nucleated RBC % 0.0 Platelet Estimate Anisocytosis Schistocytes Sodium Potassium Chloride Carbon Dioxide Anion Gap BUN Creatinine Estim Creat Clear Calc Estimated GFR Glucose POC Capillary Glucose Lactic Acid 1.5 1.6 Calcium 12/09/24 12/09/24 12/10/24 17:01 19:54 06:32 WBC 23.5 H RBC 3.85 L Hgb 10.9 L Hct 34.1 L MCV 88.6 MCH 28.3 MCHC 32.0 RDW 15.1 H Plt Count 268 MPV 10.2 Immature Gran % (Auto) 0.6 H Neut % (Auto) 93.4 H Lymph % (Auto) 2.3 L Bollinger % (Auto) 3.5 Eos % (Auto) 0.0 Baso % (Auto) 0.2 Lymph # (Auto) 0.53 L Bollinger # (Auto) 0.8 H Eos # (Auto) 0.0 Baso # (Auto) 0.1 Abs Immat Gran (auto) 0.15 H Absolute Neuts (auto) 21.9 H Absolute Nucleated RBC 0.000 Band Neutrophils % Not Reportable Nucleated RBC % 0.0 Platelet Estimate Adequate Anisocytosis 1+ Schistocytes None seen Sodium 134 L Potassium 3.9 Chloride 106 Carbon Dioxide 20 L Anion Gap 8 BUN 20 D Creatinine 0.88 Estim Creat Clear Calc 62 Estimated GFR > 60 Glucose 157 H POC Capillary Glucose 164 H 191 H Lactic Acid Calcium 8.8 12/10/24 08:09 WBC RBC Hgb Hct MCV MCH MCHC RDW Plt Count MPV Immature Gran % (Auto) Neut % (Auto) Lymph % (Auto) Bollinger % (Auto) Eos % (Auto) Baso % (Auto) Lymph # (Auto) Bollinger # (Auto) Eos # (Auto) Baso # (Auto) Abs Immat Gran (auto) Absolute Neuts (auto) Absolute Nucleated RBC Band Neutrophils % Nucleated RBC % Platelet Estimate Anisocytosis Schistocytes Sodium Potassium Chloride Carbon Dioxide Anion Gap BUN Creatinine Estim Creat Clear Calc Estimated GFR Glucose POC Capillary Glucose 157 H Lactic Acid Calcium Quality VTE Prophylaxis VTE prophylaxis: mechanical ordered (SCDs) Hospitalist MIPS Advance Care Plan I have confirmed that the patient's Advanced Care Plan is present, code status is documented, or surrogate decision maker is listed in patient medical record.: Yes Medication Reconciliation I have utilized all available resources to obtain, update and review the patients current medications (includes all prescriptions, OTC, herbals, cannabis, and nutritional supplements).: Yes
[2024-12-10] MEDS: ACETAMINOPHEN 325 MG TABLET 650 MG PO (10:27)
[2024-12-10] MEDS: MELOXICAM 7.5 MG TABLET 15 MG PO (10:27)
[2024-12-10 10:28] VITALS: PULSE 85
[2024-12-10] MEDS: DUTASTERIDE 0.5 MG CAPSULE PO (10:28)
[2024-12-10] MEDS: CHOLECALCIFEROL (VITAMIN D3) 25 MCG (1,000 UNITS) TABLET 50 MCG PO (10:28)
[2024-12-10] MEDS: metFORMIN HCL XR 500 MG TAB.SR.24H 2000 MG BY MOUTH (10:28)
[2024-12-10] MEDS: ASPIRIN 81 MG ENTERIC TABLET PO (10:28)
[2024-12-10] MEDS: ROSUVASTATIN 20 MG TABLET 40 MG PO (10:28)
[2024-12-10] MEDS: METOPROLOL SUCCINATE EXT REL 50 MG TABCR PO (10:28)
[2024-12-10] MEDS: predniSONE 20 MG TABLET 40 MG PO (10:29)
[2024-12-10] MEDS: GLIMEPIRIDE 1 MG TABLET PO (10:30)
[2024-12-10] MEDS: DIBUCAINE 1% OINTMENT 30 GM TUBE 1 APPLIC TOPICAL (10:39)
[2024-12-10] MEDS: MICONAZOLE NITRATE 2% CREAM 30 GM TUBE 1 APPLIC TOPICAL ×2 (10:39→18:00)
[2024-12-10] MEDS: BACITRACIN OINTMENT 15 GM TUBE 1 APPLIC TOPICAL ×2 (10:40→18:00)
[2024-12-10] MEDS: FLUCONAZOLE 200 MG/NACL 100 ML 200 MG/100 ML BAG 100 MG IVPB (10:40)
[2024-12-10] MEDS: TRIAMCINOLONE ACET 0.1% CREAM 15 GM TUBE 1 APPLIC TOPICAL (10:40)
[2024-12-10 12:15] LABS: Glucose Point of Care 313 mg/dl (65-105)
[2024-12-10] MEDS: MORPHINE SULFATE (*CRX) 2 MG/ML INJ IV PUSH (13:18)
[2024-12-10] MEDS: INSULIN ASPART (*BKC) 100 UNITS/ML SUB-Q ×3 (13:33→21:02)
[2024-12-10 14:00] VITALS: BP 88/50; PULSE 80; RESP 18; TEMP 35.9; O2SAT 96
--- NOTE | 2024-12-10 14:35 | PCPTNOTE ---
Attempted PT evaluation, pt's family refused for pt due to pt sleeping at this time. Will follow.
[2024-12-10 16:39] VITALS: BP 118/58
[2024-12-10 17:05] LABS: Glucose Point of Care 329 mg/dl (65-105)
[2024-12-10 20:57] LABS: Glucose Point of Care 309 mg/dl (65-105)
[2024-12-10] MEDS: DONEPEZIL HCL 5 MG TABLET PO (21:03)
[2024-12-10] MEDS: DOXAZOSIN MESYLATE 2 MG TABLET BY MOUTH (21:03)
[2024-12-10 22:00] VITALS: BP 116/62; PULSE 78; RESP 18; TEMP 36; O2SAT 99
--- NOTE | 2024-12-11 | ECHO_ITS ---
Patient Info Name: Jim Moralez Age: 84 years : 1940 Gender: Male Ht: 72 in Wt: 196 lbs BSA: 2.14 m2 HR: 74 bpm BP: 121 / 64 mmHg Technical Quality: Good Exam Date: 12/11/2024 2:42 PM Patient Status: I Admit Date: 12/10/2024 Exam Type: CA echo doppler color flow Complete two-dimensional, color flow and Doppler transthoracic echocardiogram is performed. Staff Referring Physician: Sergei Stern MD Job Service Consultant: Nancy Lozano Attending Provider: Luis Francois Summary 1. Complete two-dimensional, color flow and Doppler transthoracic echocardiogram is performed. 2. There is normal biventricular size and systolic function. 3. There are no significant valvular abnormalities. 4. No definite endocarditis identify on surface echocardiogram. Left Ventricle The left ventricle is normal in size and systolic function. The left ventricular ejection fraction is visually estimated to be 55-60%. There are no regional wall motion abnormalities. Right Ventricle The right ventricle is normal in size and systolic function. Left Atria The left atrium is normal size. Right Atria The right atrium is normal size. Atrial Septum The atrial septum is not well visualized. Aortic Valve The aortic valve is trileaflet and opens well. There is no aortic regurgitation. Pulmonic Valve The pulmonic valve is grossly normal. There is trace pulmonic valve regurgitation. Mitral Valve The mitral valve leaflets are sclerotic but opens well. There is trace mitral regurgitation. Tricuspid Valve The tricuspid valve is grossly normal. There is mild tricuspid regurgitation. Pericardium/Pleural Pericardium is normal in appearance with no evidence for significant pericardial effusion. Inferior Vena Cava Inferior vena cava is not well visualized. Aorta The aortic root at the level of the sinus of Valsalva measures 3.7 cm in diameter. The ascending aorta in the visualized portions of the study is dilated measuring 4.2 cm in diameter. Left Ventricular Outflow Tract Name Value Normal LVOT 2D LVOT Diameter 2.2 cm LVOT Doppler LVOT Peak Velocity 81 cm/s LVOT Peak Gradient 3 mmHg LVOT Mean Gradient 2 mmHg LVOT VTI 17 cm LVOT VTI/AV VTI Ratio 0.7 LVOT Stroke Volume 68 ml LVOT CO 5.1 l/min LVOT CI 2.4 l/min/m2 Pulmonic Valve Name Value Normal PV Doppler PV Peak Velocity 86 cm/s PV Peak Gradient 3 mmHg PV Regurgitation Doppler CT Peak End Diastolic Velocity 105 cm/s Mitral Valve Name Value Normal MV Diastolic Function MV E Peak Velocity 82 cm/s MV A Peak Velocity 91 cm/s MV E/A 0.9 MV Decel Time (PW) 214 ms MV Annular TDI MV E/e' (Septal) 9.9 MV E/e' (Lateral) 8.3 MV E/e' (Average) 9.1 Tricuspid Valve Name Value Normal TV Regurgitation Doppler TR Peak Velocity 244 cm/s TR Peak Gradient 22 mmHg Estimated PAP/RSVP RA Pressure 10 mmHg <=5 PA Systolic Pressure 34 mmHg <36 RV Systolic Pressure 34 mmHg <36 TV Annular TDI TV Lateral Alyssa s' Velocity 7.8 cm/s >=9.5 Aortic Valve Name Value Normal AV Doppler AV Peak Velocity 126 cm/s AV Peak Gradient 6 mmHg AV Mean Gradient 3 mmHg AV VTI 23 cm AV Area (Cont Eq VTI) 2.9 cm2 >=3.0 AV Area (Cont Eq Artemio) 2.6 cm2 AV DI (Artemio) 0.65 AV Regurgitation 2D LVOT Area 3.9 cm2 Ventricles Name Value Normal LV Dimensions 2D/MM IVS Diastolic Thickness (2D) 0.9 cm 0.6-1.0 LVID Diastole (2D) 5.5 cm 4.2-5.8 LVIW Diastolic Thickness (2D) 0.9 cm 0.6-1.0 LVID Systole (2D) 3.5 cm 2.5-4.0 LVOT Diameter 2.2 cm LV Mass (2D Cubed) 192.40 g 88.00-224.00 LV Mass Index (2D Cubed) 90 g/m2 49-115 Relative Wall Thickness (2D) 0.34 <=0.42 LV Fractional Shortening/Ejection Fraction 2D/MM LV Fractional Shortening (2D) 37 % 25-43 LV EF (2D Teichholz) 66 % LV Diastolic Volume (4C MOD) 107 ml LV EF (4C MOD) 63 % LV Diastolic Volume (2C MOD) 86 ml LV EF (2C MOD) 48 % LV Diastolic Volume (BP MOD) 98 ml 62-150 LV Diastolic Volume Index (BP MOD) 46 ml/m2 34-74 LV Systolic Volume (BP MOD) 47 ml 21-61 LV Systolic Volume Index (BP MOD) 22 ml/m2 11-31 LV EF (BP MOD) 52 % 52-72 LV Diastolic Length (4C) 8.6 cm LV Systolic Length (4C) 6.5 cm LV Stroke Volume (4C MOD) 67 ml Atria Name Value Normal LA Dimensions LA Volume (4C A-L) 57 ml LA Volume (BP A-L) 55 ml RA Dimensions RA Systolic Major [place] Length (4C) 5.4 cm 2.1-2.7 RA Area (4C) 16.5 cm2 <=18.0 Report Signatures
[2024-12-11 06:00] VITALS: BP 121/64; PULSE 74; RESP 18; TEMP 36.1; O2SAT 96
[2024-12-11 06:29] LABS: Hematocrit 33.8 % (42.0-52.0); Hemoglobin 10.6 g/dL (14.0-18.0); Mean Corpuscular HGB Conc 31.4 g/dl (32-36); Mean Corpuscular Hemoglobin 27.8 pg (26-34); Mean Corpuscular Volume 88.7 fl (80-100); Platelet Count Result 285 k/mm3 (150-375); Red Blood Count 3.81 M/mm3 (4.6-6.20); Red Cell Distribution Width 15.2 % (11.5-14.5)
[2024-12-11 06:44] LABS: Alanine Aminotransferase 29 U/L (6-50); Albumin Level 2.8 g/dL (3.5-5.1); Alkaline Phosphatase 91 U/L (38-126); Anion Gap 7 mmol/L (4-12); Aspartate Amino Transferase 24 U/L (17-59); Bilirubin,Total 0.4 mg/dL (0.2-1.3); Blood Urea Nitrogen 27 mg/dL (9-20); Calcium 8.8 mg/dL (8.4-10.2); Carbon Dioxide 21 mmol/L (22-30); Chloride 107 mmol/L (98-107); Estimated CRCL calculation 54 ml/min; Estimated Glomerular Filt Rate > 60; Glucose 235 mg/dL (65-110); Potassium 3.9 mmol/L (3.4-5.0); Sodium 135 mmol/L (137-145); Total Protein 5.9 g/dL (6.3-8.2)
[2024-12-11] MEDS: LEVOTHYROXINE SODIUM 75 MCG TABLET PO (06:50)
[2024-12-11 07:49] LABS: Glucose Point of Care 233 mg/dl (65-105)
[2024-12-11 08:00] VITALS: O2SAT 95
[2024-12-11] MEDS: ACETAMINOPHEN 325 MG TABLET 650 MG PO (09:04)
[2024-12-11] MEDS: predniSONE 20 MG TABLET 40 MG PO (09:09)
[2024-12-11] MEDS: CHOLECALCIFEROL (VITAMIN D3) 25 MCG (1,000 UNITS) TABLET 50 MCG PO (09:09)
[2024-12-11] MEDS: ASPIRIN 81 MG ENTERIC TABLET PO (09:09)
[2024-12-11] MEDS: MELOXICAM 7.5 MG TABLET 15 MG PO (09:09)
[2024-12-11] MEDS: ROSUVASTATIN 20 MG TABLET 40 MG PO (09:10)
[2024-12-11] MEDS: DUTASTERIDE 0.5 MG CAPSULE PO (09:10)
[2024-12-11] MEDS: TRIAMCINOLONE ACET 0.1% CREAM 15 GM TUBE 1 APPLIC TOPICAL (09:10)
[2024-12-11] MEDS: MICONAZOLE NITRATE 2% CREAM 30 GM TUBE 1 APPLIC TOPICAL ×2 (09:10→16:54)
[2024-12-11] MEDS: INSULIN ASPART (*BKC) 100 UNITS/ML SUB-Q ×4 (09:11→20:38)
[2024-12-11] MEDS: BACITRACIN OINTMENT 15 GM TUBE 1 APPLIC TOPICAL ×2 (09:11→16:53)
[2024-12-11] MEDS: FLUTICASONE PROPIONATE 0.05% NA SPR 16 GM BTL (*BKC) 1 SPRAY XX (09:33)
[2024-12-11 11:23] LABS: Glucose Point of Care 266 mg/dl (65-105)
[2024-12-11] MEDS: HYDROcodone/acetaminophen (*CRX) 5-325 MG TABLET 1 TAB PO (11:31)
[2024-12-11] MEDS: FLUCONAZOLE 200 MG/NACL 100 ML 200 MG/100 ML BAG 100 MG IVPB (11:32)
[2024-12-11 14:00] VITALS: BP 97/54; PULSE 75; RESP 16; TEMP 36.2; O2SAT 96
--- NOTE | 2024-12-11 14:17 | P.CONCA_ITS ---
Assessment and Plan Assessment and plan (1) Bacteremia: Code(s): R78.81 - Bacteremia Status: Acute Assessment and Plan: Discussed YOLANDE with the patient. He would like to think it over and discuss it with his first before agreeing to undergo procedure. In the meantime, will obtain TTE. History of Present Illness History of Present Illness Consult date/time: 12/11/24 14:17 Requesting physician: Andres Amos MD Consult reason: Other (YOLANDE) Reason For Visit: abdominal pain,cystitis Narrative: We are consulted for YOLANDE. Jim is an 84 year old male with history of dementia, essential hypertension, hypothyroidism, type 2 diabetes mellitus, pyoderma gangrenosum, high-grade papillary urothelial carcinoma s/p TURBT who was admitted on 12/09/2024 for abdominal pain, difficulty urinating. Admitted for acute cystitis. Blood cultures from 12/09 growing Staph aureus in 1/4 bottles. Urine culture is growing MRSA. Given Staph aureus bacteremia, wer are consulted for YOLANDE. Patient sleeping comfortably upon my examination and denies any specific complaints. States he feels fine. 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 The patient's was told that he no longer needed CPAP Surgical History Surgical History History of colon surgery Cholesteatoma of attic of left ear History of coronary artery stent placement (~2014) X2 or 3 History of skin graft With skin flap History of biopsy Incisional biopsies nonhealing wound buttocks 02/02/2022 History of incision and drainage i&d pilonidal cyst 09/06/21 Hx of CABG (~2003) 2 vessel MASSEY to LAD saphenous vein graft to obtuse marginal Family History Family History Sibling Carcinoma of colon Family history of diabetes mellitus in first degree relative Family history of coronary artery disease Family history of malignant neoplasm of breast in first degree relative Father Family history of coronary artery disease Mother , pneumonia Pneumonia Other Diabetes mellitus Family history of arthritis Family history of congenital heart disease Family history of heart disease in male family member before age 55 Family history of malignant neoplasm Social History Social History Social History: The patient lives with his of over 40 years. He has 2 biologic children and 1 stepchild. 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 He has a distant history of smoking 20 pack per year. He quit smoking in the in then chewed tobacco for another 10 years and quit in 1991. He used to drink a few alcoholic beverages a month but only rarely drinks alcohol now. Code status: DNR/DNI Healthcare power of litigation attorney: Smoking packs per day: 2.5 Smoking cigarettes per day: 50.0 Years smoked: 10 Smoking pack-years: 25.00 Smoking status: Former smoker Second hand tobacco smoke exposure: Yes Alcohol intake: current Drinks per week: 1 Alcohol use details: socially Substance use: never Substance use type: does not use Do You Feel Safe in your Home?: Yes Lack of Transportation: No Lack of Food: Never True Current Housing: I Have Housing Concerned About Future Housing: No Difficulty Paying Gas/Electric Bills: No Difficulty Paying for Meds: No Currently Unemployed: No Education: Master's Degree or Higher Difficulty w/ Childcare or Family Care: No Living arrangements: with family Additional living arrangements comments: lives with Occupation/Education: retired 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 Gender identity (if verbalized by the patient): Male Spiritual care concerns: No Meds Home Medications and Allergies Home Medications ?Medication ?Instructions ?Recorded ?Confirmed ?Type nitroglycerin 0.4 mg sublingual 0.4 mg sublingual Q5M PRN chest 01/16/23 12/09/24 Rx tablet pain #25 tabs nystatin 100,000 unit/gram topical 1 applic topical BID #30 grams 02/29/24 12/09/24 Rx cream nystatin 100,000 unit/gram topical 1 applic topical BID #30 grams 02/29/24 12/09/24 Rx powder donepezil 5 mg tablet (Aricept) 5 mg PO QHS #30 tabs 05/29/24 12/09/24 Rx amlodipine 5 mg tablet 5 mg PO DAILY #90 tabs 07/31/24 12/09/24 Rx metoprolol succinate 50 mg 50 mg PO DAILY #90 tabs 07/31/24 12/09/24 Rx tablet,extended release 24 hr aspirin 81 mg tablet,delayed 81 mg PO DAILY 08/06/24 12/09/24 History release (Adult Low Dose Aspirin) doxazosin 2 mg tablet See Rx Instructions .Route 08/17/24 12/09/24 Rx .COMPLEX #90 tabs bacitracin 500 unit/gram topical 1 applic topical BID 08/21/24 12/09/24 History ointment dibucaine 1 % topical ointment 1 applic topical QID PRN Pain of 08/21/24 12/09/24 History groin ulcer triamcinolone acetonide 0.1 % 1 applic topical DAILY 08/21/24 12/09/24 History topical cream empagliflozin 25 mg tablet 25 mg PO QAM #90 tabs 09/12/24 12/09/24 Rx (Jardiance) glimepiride 1 mg tablet 1 mg PO QAM #90 tabs 09/27/24 12/09/24 Rx metformin 500 mg tablet,extended See Rx Instructions .Route 09/27/24 12/09/24 Rx release 24 hr .COMPLEX #360 tabs rosuvastatin 40 mg tablet 40 mg PO DAILY #90 tabs 09/27/24 12/09/24 Rx meloxicam 15 mg tablet See Rx Instructions .Route 10/17/24 12/09/24 Rx .COMPLEX #90 tabs dutasteride 0.5 mg capsule 0.5 mg PO DAILY #90 caps 11/08/24 12/09/24 Rx levothyroxine 75 mcg tablet 75 mcg PO DAILY #90 tabs 11/10/24 12/09/24 Rx cholecalciferol (vitamin D3) 50 2,000 unit PO DAILY 12/09/24 12/09/24 History mcg (2,000 unit) capsule prednisone 20 mg tablet 40 mg PO DAILY 12/09/24 12/09/24 History alendronate 70 mg tablet 70 mg PO WEEKLY 12/10/24 12/10/24 History Allergies Allergy/AdvReac Type Severity Reaction Status Date / Time finasteride Allergy Intermediate Hives Verified 08/21/24 07:58 JOSHUA Inhibitors Allergy Unknown Cough Verified 08/21/24 07:58 ARB-Angiotensin Receptor Allergy Unknown Cough Verified 08/21/24 07:58 Antagonist lisinopril Allergy Unknown Cough Verified 08/21/24 07:58 Vital Signs Vital Signs - 24 hr 12/10/24 16:39 12/10/24 22:00 12/11/24 06:00 Temperature 36.0 C L 36.1 C L Pulse Rate 78 74 Respiratory Rate 18 18 Blood Pressure 118/58 L 116/62 121/64 Pulse Oximetry 99 96 Oxygen Delivery 12/11/24 08:00 12/11/24 11:56 Temperature Pulse Rate Respiratory Rate Blood Pressure Pulse Oximetry 95 Oxygen Delivery Room Air Room Air Exam 2 Const: General: comfortable and no acute distress HENMT: Mouth: Yes dry mucous membranes Eyes: General: appearance normal, both eyes and all related structures S clera: sclerae normal Resp: Effort & Inspection: normal respiratory effort Cardio: Rate: regular rate Rhythm: regular rhythm Heart sounds: no murmurs Neuro: Speech: normal speech Psych: Mental Status: mental status grossly normal Affect: normal affect Results Labs and Meds 12/11/24 05:56 12/11/24 05:56 Lab results: Cardiac Enzymes 12/11/24 Range/Units 05:56 AST 24 (17-59) U/L CBC 12/11/24 Range/Units 05:56 WBC 24.0 H (4.5-10.0) K/mm3 RBC 3.81 L (4.6-6.20) M/mm3 Hgb 10.6 L (14.0-18.0) g/dL Hct 33.8 L (42.0-52.0) % Plt Count 285 (150-375) k/mm3 Comprehensive Metabolic Panel 12/11/24 Range/Units 05:56 Sodium 135 L (137-145) mmol/L Potassium 3.9 (3.4-5.0) mmol/L Chloride 107 (98-107) mmol/L Carbon Dioxide 21 L (22-30) mmol/L BUN 27 H (9-20) mg/dL Creatinine 1.02 (0.7-1.3) mg/dL Glucose 235 H (65-110) mg/dL Calcium 8.8 (8.4-10.2) mg/dL AST 24 (17-59) U/L ALT 29 (6-50) U/L Alkaline Phosphatase 91 (38-126) U/L Total Protein 5.9 L (6.3-8.2) g/dL Albumin 2.8 L (3.5-5.1) g/dL Intake and Output 12/10/24 12/11/24 12/11/24 23:59 07:59 15:59 Intake Total 340 960 Output Total 1000 Balance 340 -40 Intake: Oral 340 960 Output: Urine 1000 Other: # Incontinent Voids 1
[2024-12-11] MEDS: VANCOMYCIN 1,250 MG/NS 250 ML 1,250 MG/250 ML BAG 166.67 MG IVPB (14:57)
--- NOTE | 2024-12-11 16:26 | PM.IMPN ---
Progress Note: A&P Assessment and Plan (1) UTI (urinary tract infection): Qualifiers: Urinary tract infection type: acute cystitis Hematuria presence: with hematuria Qualified Code(s): N30.01 - Acute cystitis with hematuria Code(s): N39.0 - Urinary tract infection, site not specified Status: Acute Assessment and Plan: Acute cystitis following recent cystoscopy with transurethral resection of urothelial carcinoma Started on Rocephin Monitor urine culture (2) Bladder cancer: Qualifiers: Bladder location: unspecified site Qualified Code(s): C67.9 - Malignant neoplasm of bladder, unspecified Code(s): C67.9 - Malignant neoplasm of bladder, unspecified Status: Acute Assessment and Plan: as above (3) Type 2 diabetes mellitus with hyperglycemia: Qualifiers: Diabetes mellitus manager terminal insulin use: without group home use Qualified Code(s): E11.65 - Type 2 diabetes mellitus with hyperglycemia Code(s): E11.65 - Type 2 diabetes mellitus with hyperglycemia Status: Chronic Assessment and Plan: SSI hypoglycemia protocol (4) Essential hypertension: Code(s): I10 - Essential (primary) hypertension Status: Chronic Assessment and Plan: hold antihypertensive medications due to low blood pressure (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 Started on vancomycin and consulted Cardiology for possible YOLANDE. Review of Systems Review of Systems: Unobtainable due to patient's history of dementia. Exam Narrative: Weight 89.1 kg BMI 26.6 Const: Other: Acutely ill-appearing, elderly, obese HENMT: Other: Mucous membranes are dry, no oral pharyngeal erythema, crowded posterior oropharynx with class 3 ASA Eyes: Other: Pupils are equal and reactive, bilateral lens implants noted, no scleral icterus Neck: Other: No JVD, large neck circumference Resp: Other: Clear to auscultation bilaterally anterior velazquez, no increased work of breathing Cardio: Other: Regular rate, regular rhythm, 2/6 systolic murmur, no JVD GI: Other: Obese, soft, tender in suprapubic region, normoactive bowel sounds : Other: Uncircumcised male, incontinent of urine, large ulcer in the left groin please see nursing documentation for size and imaging Skin: Other: Large ulcer in the left groin with yellow base, no overt drainage, appearance consistent with patient's history of pyoderma gangrenosum, sacral wounds as well Neuro: Other: Alert oriented to person, place and situation confused as to the month in year, speech is clear patient is only answering direct questions, no facial asymmetry Extrem: Other: 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, no clubbing, cyanosis or edema Psych: Other: Flat affect, cooperative Objective Data Vital Signs Vital Signs: Vital Signs - 24 hr 12/10/24 16:39 12/10/24 22:00 12/11/24 06:00 Temperature 96.8 F L 97 F L Pulse Rate 78 74 Respiratory Rate 18 18 Blood Pressure 118/58 L 116/62 121/64 Pulse Oximetry 99 96 Oxygen Delivery 12/11/24 08:00 12/11/24 11:56 12/11/24 14:00 Temperature 97.2 F L Pulse Rate 75 Respiratory Rate 16 Blood Pressure 97/54 L Pulse Oximetry 95 96 Oxygen Delivery Room Air Room Air Intake/Output Intake/Output: Intake & Output 12/08/24 12/09/24 12/10/24 12/11/24 23:59 23:59 23:59 23:59 Intake Total 1440 850 960 Output Total 1000 Balance 1440 850 -40 Meds/Results Medications: Active Medications Generic Name Dose Route Start Last Admin Trade Name Freq PRN Reason Stop Dose Admin Acetaminophen 650 mg 12/09/24 13:22 12/11/24 09:04 Acetaminophen 325 Mg Tablet PO 650 mg Q4H PRN Administration Mild Pain (1-3) or Fever Hydrocodone Bitart/Acetaminophen 1 tab 12/11/24 11:08 12/11/24 11:31 Hydrocodone/Acetaminophen (*Crx) 5-325 Mg Tablet PO 1 tab Q4H PRN Administration Pain Rated 4-6 Aspirin 81 mg 12/10/24 09:00 12/11/24 09:09 Aspirin 81 Mg Enteric Tablet PO 81 mg DAILY NEHEMIAH Administration Bacitracin 1 applic 06/03/25 09:00 12/11/24 09:11 Bacitracin Ointment 15 Gm Tube TOPICAL 1 applic BID NEHEMIAH Administration Dextrose 12.5 gm 12/09/24 16:16 Dextrose 50% 25 Gm/50 Ml Syringe IV PUSH PRN PRN Hypoglycemia Protocol Dibucaine 1 applic 12/09/24 19:26 12/10/24 10:39 Dibucaine 1% Ointment 30 Gm Tube TOPICAL 1 applic QID PRN Administration Pain of groin ulcer Donepezil HCl 5 mg 12/09/24 21:00 12/10/24 21:03 Donepezil Hcl 5 Mg Tablet PO 5 mg QHS NEHEMIAH Administration Doxazosin Mesylate 2 mg 12/09/24 21:00 12/10/24 21:03 Doxazosin Mesylate 2 Mg Tablet BY MOUTH 2 mg HS NEHEMIAH Administration Dutasteride 0.5 mg 12/10/24 09:00 12/11/24 09:10 Dutasteride 0.5 Mg Capsule PO 0.5 mg DAILY NEHEMIAH Administration Fluconazole 200 mg 12/12/24 09:00 Fluconazole 100 Mg Tablet PO 12/22/24 09:01 QAM NEHEMIAH Fluticasone Propionate 1 spray 12/11/24 09:00 12/11/24 09:33 Fluticasone Propionate 0.05% Na Spr 16 Gm Btl (*[facility]) XX 1 spray DAILY NEHEMIAH Administration Glimepiride 1 mg 12/10/24 09:00 12/10/24 10:30 Glimepiride 1 Mg Tablet PO 1 mg QAM NEHEMIAH Administration Glucagon 1 mg 12/09/24 16:16 Glucagon For Inj 1 Mg Vial IM PRN PRN Hypoglycemia Protocol Glucose 15 gm 12/09/24 16:16 Glucose Oral Gel 15 Gm Of Glucse In 37.5 Gm Tube PO PRN PRN Hypoglycemia Protocol Dextrose 1,000 mls @ 100 mls/hr 12/09/24 16:16 Dextrose 5% 1,000 Ml IVPB PRN PRN Hypoglycemia Protocol Vancomycin HCl 1,000 mg in 250 mls @ 250 mls/hr 12/11/24 15:30 Vancomycin 1,000 Mg/Ns 250 Ml IVPB 12/11/24 16:29 ONCE ONE Vancomycin HCl 1,250 mg in 250 mls @ 166.667 mls/hr 12/12/24 14:00 Vancomycin 1,250 Mg/Ns 250 Ml IVPB Q24H [facility] Insulin Aspart 1 - 2 units 12/09/24 21:00 12/10/24 21:02 Insulin Aspart (*Bkc) 100 Units/Ml SUB-Q 2 units HS [facility] Administration Protocol Insulin Aspart 2 - 5 units 12/09/24 17:00 12/11/24 11:46 Insulin Aspart (*Bkc) 100 Units/Ml SUB-Q 3 units TIDWM [facility] Administration Protocol Levothyroxine Sodium 75 mcg 12/10/24 06:30 12/11/24 06:50 Levothyroxine Sodium 75 Mcg Tablet PO 75 mcg DAILY@0630 [facility] Administration Meloxicam 15 mg 12/10/24 09:00 12/11/24 09:09 Meloxicam 7.5 Mg Tablet PO 01/10/25 08:59 15 mg DAILY [facility] Administration Metformin HCl 2,000 mg 12/10/24 09:00 12/10/24 10:28 Metformin Hcl Xr 500 Mg Tab.Sr.24h BY MOUTH 2,000 mg DAILY [facility] Administration Metoprolol Succinate 50 mg 12/10/24 09:00 12/10/24 10:28 Metoprolol Succinate Ext Rel 50 Mg Tabcr PO 50 mg DAILY [facility] Administration Miconazole Nitrate 1 applic 12/10/24 09:00 12/11/24 09:10 Miconazole Nitrate 2% Cream 30 Gm Tube TOPICAL 1 applic BID [facility] Administration Morphine Sulfate 2 mg 12/09/24 13:22 12/10/24 13:18 Morphine Sulfate (*Crx) 2 Mg/Ml Inj IV PUSH 2 mg Q2H PRN Administration Pain Rated 7-10 Nitroglycerin 0.4 mg 12/09/24 18:28 Nitroglycerin Sl 0.4 Mg Tablet SUBLINGUAL Q5M PRN chest pain Ondansetron HCl 4 mg 12/09/24 13:22 12/09/24 19:49 Ondansetron Inj 4 Mg/2 Ml Vial IV PUSH 4 mg Q4H PRN Administration Nausea Perflutren Lipid Microsphere 0 ml 12/11/24 14:24 Perflutren Lipid Microspheres 1.5 Ml Vial Diluted To 10 Ml Total Volume IV PUSH 12/14/24 14:24 ONCE PRN adequate visualization Protocol Prednisone 40 mg 12/09/24 19:30 12/11/24 09:09 Prednisone 20 Mg Tablet PO 12/17/24 09:01 40 mg DAILY NEHEMIAH Administration Prednisone 20 mg 12/18/24 09:00 Prednisone 20 Mg Tablet PO 12/31/24 09:01 DAILY [facility]HEMIA[facility] Rosuvastatin Calcium 40 mg 12/10/24 09:00 12/11/24 09:10 Rosuvastatin 20 Mg Tablet PO 40 mg DAILY NEHEMIAH Administration Triamcinolone Acetonide 1 applic 12/10/24 09:00 12/11/24 09:10 Triamcinolone Acet 0.1% Cream 15 Gm Tube TOPICAL 1 applic DAILY [facility]HEMIAH Administration Vitamin D 50 mcg 12/10/24 09:00 12/11/24 09:09 Cholecalciferol (Vitamin D3) 25 Mcg (1,000 Units) Tablet PO 50 mcg DAILY NEHEMIAH Administration Radiology Results: ITS Impressions Abdomen/Pelvis CT 12/09/24 10:25 IMPRESSION: 1. Abnormal bladder wall thickening with surrounding fatty infiltration and fluid, suspicious for acute cystitis. Clinically correlate. 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 Labs Labs: Laboratory Results - last 24 hr 12/10/24 12/10/24 12/11/24 17:00 20:54 05:56 WBC 24.0 H RBC 3.81 L Hgb 10.6 L Hct 33.8 L MCV 88.7 MCH 27.8 MCHC 31.4 L RDW 15.2 H Plt Count 285 MPV 10.0 Sodium 135 L Potassium 3.9 Chloride 107 Carbon Dioxide 21 L Anion Gap 7 BUN 27 H Creatinine 1.02 Estim Creat Clear Calc 54 Estimated GFR > 60 Glucose 235 H POC Capillary Glucose 329 H 309 H Calcium 8.8 Total Bilirubin 0.4 AST 24 ALT 29 Alkaline Phosphatase 91 Total Protein 5.9 L Albumin 2.8 L 12/11/24 12/11/24 07:37 11:20 WBC RBC Hgb Hct MCV MCH MCHC RDW Plt Count MPV Sodium Potassium Chloride Carbon Dioxide Anion Gap BUN Creatinine Estim Creat Clear Calc Estimated GFR Glucose POC Capillary Glucose 233 H 266 H Calcium Total Bilirubin AST ALT Alkaline Phosphatase Total Protein Albumin Quality VTE Prophylaxis VTE prophylaxis: mechanical ordered (SCDs) Hospitalist MIPS Advance Care Plan I have confirmed that the patient's Advanced Care Plan is present, code status is documented, or surrogate decision maker is listed in patient medical record.: Yes Medication Reconciliation I have utilized all available resources to obtain, update and review the patients current medications (includes all prescriptions, OTC, herbals, cannabis, and nutritional supplements).: Yes
[2024-12-11 16:52] LABS: Glucose Point of Care 321 mg/dl (65-105)
[2024-12-11] MEDS: VANCOMYCIN 1,000 MG/NS 250 ML 1,000 MG/250 ML BAG 250 MG IVPB (16:53)
[2024-12-11 20:12] LABS: Glucose Point of Care 331 mg/dl (65-105)
[2024-12-11] MEDS: DOXAZOSIN MESYLATE 2 MG TABLET BY MOUTH (20:38)
[2024-12-11] MEDS: DONEPEZIL HCL 5 MG TABLET PO (20:38)
[2024-12-11 20:51] VITALS: BP 120/45; PULSE 72; RESP 16; TEMP 36.1; O2SAT 97
[2024-12-12 05:17] VITALS: BP 143/60; PULSE 63; RESP 14; TEMP 36.6; O2SAT 99
[2024-12-12] MEDS: LEVOTHYROXINE SODIUM 75 MCG TABLET PO (06:03)
[2024-12-12 07:10] LABS: Hematocrit 40.9 % (42.0-52.0); Hemoglobin 12.2 g/dL (14.0-18.0); Mean Corpuscular HGB Conc 29.8 g/dl (32-36); Mean Corpuscular Hemoglobin 27.7 pg (26-34); Mean Platelet Volume 10.3 fl (7.4-10.4); Platelet Count Result 266 k/mm3 (150-375); Red Cell Distribution Width 14.9 % (11.5-14.5); White Blood Count 18.1 K/mm3 (4.5-10.0)
[2024-12-12 07:54] LABS: Glucose Point of Care 254 mg/dl (65-105)
[2024-12-12] MEDS: FLUCONAZOLE 100 MG TABLET 200 MG PO (09:15)
[2024-12-12] MEDS: CHOLECALCIFEROL (VITAMIN D3) 25 MCG (1,000 UNITS) TABLET 50 MCG PO (09:15)
[2024-12-12] MEDS: HYDROcodone/acetaminophen (*CRX) 5-325 MG TABLET 1 TAB PO ×2 (09:15→13:06)
[2024-12-12] MEDS: MICONAZOLE NITRATE 2% CREAM 30 GM TUBE 1 APPLIC TOPICAL ×2 (09:15→17:48)
[2024-12-12] MEDS: predniSONE 20 MG TABLET 40 MG PO (09:15)
[2024-12-12] MEDS: INSULIN ASPART (*BKC) 100 UNITS/ML SUB-Q ×4 (09:15→20:31)
[2024-12-12] MEDS: DUTASTERIDE 0.5 MG CAPSULE PO (09:15)
[2024-12-12] MEDS: FLUTICASONE PROPIONATE 0.05% NA SPR 16 GM BTL (*BKC) 1 SPRAY XX (09:15)
[2024-12-12] MEDS: TRIAMCINOLONE ACET 0.1% CREAM 15 GM TUBE 1 APPLIC TOPICAL (09:15)
[2024-12-12] MEDS: ASPIRIN 81 MG ENTERIC TABLET PO (09:15)
[2024-12-12] MEDS: BACITRACIN OINTMENT 15 GM TUBE 1 APPLIC TOPICAL ×2 (09:15→17:48)
[2024-12-12] MEDS: MELOXICAM 7.5 MG TABLET 15 MG PO (09:15)
[2024-12-12] MEDS: ROSUVASTATIN 20 MG TABLET 40 MG PO (09:15)
--- NOTE | 2024-12-12 10:05 | P.PNCA_ITS ---
Progress Note: A&P Assessment and Plan (1) Bacteremia: Code(s): R78.81 - Bacteremia Status: Acute Assessment and Plan: Patient's at the bedside, discussed YOLANDE with her and patient. I explained the rationale for obtaining the YOLANDE, risks, benefits. After thorough explanation patient states, We're not doing that shit. Patient's is also unsure about wanting to put him through the procedure. Once again explained importance of ruling out endocarditis, or if vegetation seen, impact on antibiotic course. She remains unsure about wanting to proceed with the procedure and wants more time to think about it. Will keep him NPO at midnight in the event they do decide to proceed. TTE pending. Subjective Date/time seen: 12/12/24 10:05 Interval history: Patient blood culture resulted Staph aureus. Started on vancomycin and consulted Cardiology for possible YOLANDE. Cardiology follow up visit 12/12/2024: He feels fine today. No cardiovascular complaints. Denies chest pain, shortness of breath, palpitations. Review of Systems Review of Systems: All systems reviewed & are unremarkable except as noted in HPI and below (HPI) Exam Const: General: comfortable and no acute distress HENMT: Mouth: Yes dry mucous membranes Eyes: General: appearance normal, both eyes and all related structures Sclera: sclerae normal Resp: Effort & Inspection: normal respiratory effort Cardio: Rate: regular rate Rhythm: regular rhythm Heart sounds: no murmurs Neuro: Speech: normal speech Psych: Mental Status: mental status grossly normal Affect: normal affect Objective Data Vital Signs Vital Signs: Vital Signs - 24 hr 12/11/24 11:56 12/11/24 14:00 12/11/24 20:51 Temperature 36.2 C L 36.1 C L Pulse Rate 75 72 Respiratory Rate 16 16 Blood Pressure 97/54 L 120/45 L Pulse Oximetry 96 97 Oxygen Delivery Room Air 12/12/24 05:17 Temperature 36.6 C Pulse Rate 63 Respiratory Rate 14 Blood Pressure 143/60 H Pulse Oximetry 99 Oxygen Delivery Intake/Output Intake/Output: Intake & Output 12/09/24 12/10/24 12/11/24 12/12/24 23:59 23:59 23:59 23:59 Intake Total 3825 413 5508 100 Output Total 1400 1700 Balance 1440 850 -322 -1600 Meds/Results Medications: Active Medications Generic Name Dose Route Start Last Admin Trade Name Freq PRN Reason Stop Dose Admin Acetaminophen 650 mg 12/09/24 13:22 12/11/24 09:04 Acetaminophen 325 Mg Tablet PO 650 mg Q4H PRN Administration Mild Pain (1-3) or Fever Hydrocodone Bitart/Acetaminophen 1 tab 12/11/24 11:08 12/11/24 11:31 Hydrocodone/Acetaminophen (*Crx) 5-325 Mg Tablet PO 1 tab Q4H PRN Administration Pain Rated 4-6 Aspirin 81 mg 12/10/24 09:00 12/11/24 09:09 Aspirin 81 Mg Enteric Tablet PO 81 mg DAILY NEHEMIAH Administration Bacitracin 1 applic 12/10/24 09:00 12/11/24 16:53 Bacitracin Ointment 15 Gm Tube TOPICAL 1 applic BID NEHEMIAH Administration Dextrose 12.5 gm 12/09/24 16:16 Dextrose 50% 25 Gm/50 Ml Syringe IV PUSH PRN PRN Hypoglycemia Protocol Dibucaine 1 applic 12/09/24 19:26 12/10/24 10:39 Dibucaine 1% Ointment 30 Gm Tube TOPICAL 1 applic QID PRN Administration Pain of groin ulcer Donepezil HCl 5 mg 12/09/24 21:00 12/11/24 20:38 Donepezil Hcl 5 Mg Tablet PO 5 mg QHS NEHEMIAH Administration Doxazosin Mesylate 2 mg 12/09/24 21:00 12/11/24 20:38 Doxazosin Mesylate 2 Mg Tablet BY MOUTH 2 mg HS NEHEMIAH Administration Dutasteride 0.5 mg 12/10/24 09:00 12/11/24 09:10 Dutasteride 0.5 Mg Capsule PO 0.5 mg DAILY NEHEMIAH Administration Fluconazole 200 mg 12/12/24 09:00 Fluconazole 100 Mg Tablet PO 12/22/24 09:01 QAM NEHEMIAH Fluticasone Propionate 1 spray 12/11/24 09:00 12/11/24 09:33 Fluticasone Propionate 0.05% Na Spr 16 Gm Btl (*Bkc) XX 1 spray DAILY NEHEMIAH Administration Glimepiride 1 mg 12/10/24 09:00 12/10/24 10:30 Glimepiride 1 Mg Tablet PO 1 mg QAM NEHEMIAH Administration Glucagon 1 mg 12/09/24 16:16 Glucagon For Inj 1 Mg Vial IM PRN PRN Hypoglycemia Protocol Glucose 15 gm 12/09/24 16:16 Glucose Oral Gel 15 Gm Of Glucse In 37.5 Gm Tube PO PRN PRN Hypoglycemia Protocol Dextrose 1,000 mls @ 100 mls/hr 12/09/24 16:16 Dextrose 5% 1,000 Ml IVPB PRN PRN Hypoglycemia Protocol Vancomycin HCl 1,250 mg in 250 mls @ 166.667 mls/hr 12/12/24 14:00 Vancomycin 1,250 Mg/Ns 250 Ml IVPB Q24H [facility] Insulin Aspart 1 - 2 units 12/09/24 21:00 12/11/24 20:38 Insulin Aspart (*Bkc) 100 Units/Ml SUB-Q 2 units HS NEHEMIAH Administration Protocol Insulin Aspart 2 - 5 units 12/09/24 17:00 12/11/24 16:53 Insulin Aspart (*Bkc) 100 Units/Ml SUB-Q 4 units TIDWM NEHEMIAH Administration Protocol Levothyroxine Sodium 75 mcg 12/10/24 06:30 12/12/24 06:03 Levothyroxine Sodium 75 Mcg Tablet PO 75 mcg DAILY@0630 [facility] Administration Meloxicam 15 mg 12/10/24 09:00 12/11/24 09:09 Meloxicam 7.5 Mg Tablet PO 01/10/25 08:59 15 mg DAILY [facility] Administration Metformin HCl 2,000 mg 12/10/24 09:00 12/10/24 10:28 Metformin Hcl Xr 500 Mg Tab.Sr.24h BY MOUTH 2,000 mg DAILY NEHEMIAH Administration Metoprolol Succinate 50 mg 12/10/24 09:00 12/10/24 10:28 Metoprolol Succinate Ext Rel 50 Mg Tabcr PO 50 mg DAILY [facility] Administration Miconazole Nitrate 1 applic 12/10/24 09:00 12/11/24 16:54 Miconazole Nitrate 2% Cream 30 Gm Tube TOPICAL 1 applic BID NEHEMIAH Administration Morphine Sulfate 2 mg 12/09/24 13:22 12/10/24 13:18 Morphine Sulfate (*Crx) 2 Mg/Ml Inj IV PUSH 2 mg Q2H PRN Administration Pain Rated 7-10 Nitroglycerin 0.4 mg 12/09/24 18:28 Nitroglycerin Sl 0.4 Mg Tablet SUBLINGUAL Q5M PRN chest pain Ondansetron HCl 4 mg 12/09/24 13:22 12/09/24 19:49 Ondansetron Inj 4 Mg/2 Ml Vial IV PUSH 4 mg Q4H PRN Administration Nausea Perflutren Lipid Microsphere 0 ml 12/11/24 14:24 Perflutren Lipid Microspheres 1.5 Ml Vial Diluted To 10 Ml Total Volume IV PUSH 12/14/24 14:24 ONCE PRN adequate visualization Protocol Prednisone 40 mg 12/09/24 19:30 12/11/24 09:09 Prednisone 20 Mg Tablet PO 12/17/24 09:01 40 mg DAILY NEHEMIAH Administration Prednisone 20 mg 12/18/24 09:00 Prednisone 20 Mg Tablet PO 12/31/24 09:01 DAILY NEHEMIAH Rosuvastatin Calcium 40 mg 12/10/24 09:00 12/11/24 09:10 Rosuvastatin 20 Mg Tablet PO 40 mg DAILY NEHEMIAH Administration Triamcinolone Acetonide 1 applic 12/10/24 09:00 12/11/24 09:10 Triamcinolone Acet 0.1% Cream 15 Gm Tube TOPICAL 1 applic DAILY NEHEMIAH Administration Vitamin D 50 mcg 12/10/24 09:00 12/11/24 09:09 Cholecalciferol (Vitamin D3) 25 Mcg (1,000 Units) Tablet PO 50 mcg DAILY NEHEMIAH Administration Radiology Results: ITS Impressions Abdomen/Pelvis CT 12/09/24 10:25 IMPRESSION: 1. Abnormal bladder wall thickening with surrounding fatty infiltration and fluid, suspicious for acute cystitis. Clinically correlate. 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 Labs Labs: Laboratory Results - last 24 hr 12/11/24 12/11/24 12/11/24 11:20 16:47 19:53 WBC RBC Hgb Hct MCV MCH MCHC RDW Plt Count MPV POC Capillary Glucose 266 H 321 H 331 H 12/12/24 12/12/24 06:48 07:48 WBC 18.1 H RBC 4.40 L Hgb 12.2 L Hct 40.9 L MCV 93.0 MCH 27.7 MCHC 29.8 L RDW 14.9 H Plt Count 266 MPV 10.3 POC Capillary Glucose 254 H Quality VTE Prophylaxis VTE prophylaxis: mechanical ordered (SCDs)
[2024-12-12 11:35] LABS: Glucose Point of Care 255 mg/dl (65-105)
[2024-12-12 13:59] VITALS: BP 107/50; PULSE 93; RESP 20; TEMP 36.1; O2SAT 94
[2024-12-12] MEDS: VANCOMYCIN 1,250 MG/NS 250 ML 1,250 MG/250 ML BAG 166.67 MG IVPB (14:09)
[2024-12-12] MEDS: MORPHINE SULFATE (*CRX) 2 MG/ML INJ IV PUSH (14:09)
--- NOTE | 2024-12-12 15:22 | WPDURCON ---
Assessment and Plan Assessment and plan (1) UTI (urinary tract infection): Qualifiers: Urinary tract infection type: acute cystitis Hematuria presence: with hematuria Qualified Code(s): N30.01 - Acute cystitis with hematuria Code(s): N39.0 - Urinary tract infection, site not specified Status: Acute (2) Bladder cancer: Qualifiers: Bladder location: unspecified site Qualified Code(s): C67.9 - Malignant neoplasm of bladder, unspecified Code(s): C67.9 - Malignant neoplasm of bladder, unspecified Status: Acute Plan 84y old male with TURBT done at [facility] on 11/27/2024 due to bladder carcinoma. -UA significant for infection. Culture pending. culture driven antibiotic therapy per primary team. -no significant PVR noted. maintain purewick. - Blood culture reveals staph managed by primary service. -CT. reveals: Abnormal bladder wall thickening with surrounding fatty infiltration and fluid, suspicious for acute cystitis. Clinically correlate. Innumerable pancreatic cysts, possibly a variant of autosomal dominant polycystic kidney disease. -WBC is down to 18.1 today from 24.0 yesterday -cr. 1.02 yesterday. Chemistry still showing pending today. -No urological surgical intervention necessary at this time. -continue wound care per primary service and wound team for pyoderma gangrenosum -Patient will resume urological management with his current team at [facility] upon discharge. -will follow peripherally Urology Consult Note HPI Date Seen: 12/12/24 Requesting Physician: Luis Francois MD Primary Care Provider: Willard Gilbert MD Consult Narrative Narrative: Jim Moralez is a 84 year old male with a past medical history of dementia, essential hypertension, hypothyroidism, type 2 diabetes, pyoderma gangrenosum and high-grade papillary urothelial carcinoma status post transurethral resection 11/27/2024 at [facility] who presented to the ER via EMS from home due to abdominal pain and difficulty urinating. Patient was diagnosed with urothelial carcinoma 6 months ago and underwent possible transurethral resection of bladder tumor. Unfortunately she reports regression of tumor and underwent again TURBT on 27 Nov 2024. He had his Nuñez catheter removed on 12/05/2024. Patient's denies patient having any blood in his urine or fever. He has been having normal bowel movements. She reports that the day before his Nuñez was removed the patient began having lower abdominal pain. After the Nuñez was removed the patient was getting up numerous times to urinate. He reports discomfort in his lower abdomen but cannot provide much else for his details. He also has significant pain over wound in his left groin. The patient does have pyoderma gangrenosa and frequently as painful skin lesions. His reports that the lesion in his left groin had almost healed up after his last steroid injection about a month ago but it started to enlarge again a week or so ago. He is on an oral steroid taper that was just decreased from 60 mg a day down to 40 mg a day 6 days ago. She reports that he is supposed to decrease the dose every 2 weeks. The patient's reported she was unable to taken back to [facility] and that he has been back to the facility multiple times and she cannot make the trip anymore and request that the patient's stay here for treatment. Patient was started on Rocephin for empiric antibiotic therapy for UTI. He received 1 L fluid bolus in the ER and was started on maintenance fluids. The patient is incontinent of urine on arrival to the medical floor. He is having some lower abdominal pain. Bladder scan performed demonstrated only 150 mL of retained urine. 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 The patient's was told that he no longer needed CPAP Surgical History Surgical History History of colon surgery Cholesteatoma of attic of left ear History of coronary artery stent placement (~2014) X2 or 3 History of skin graft With skin flap History of biopsy Incisional biopsies nonhealing wound buttocks 02/02/2022 History of incision and drainage i&d pilonidal cyst 2/28/22 Hx of CABG (~2003) 2 vessel MASSEY to LAD saphenous vein graft to obtuse marginal Family History Family History Sibling Carcinoma of colon Family history of diabetes mellitus in first degree relative Family history of coronary artery disease Family history of malignant neoplasm of breast in first degree relative Father Family history of coronary artery disease Mother , pneumonia Pneumonia Other Diabetes mellitus Family history of arthritis Family history of congenital heart disease Family history of heart disease in male family member before age 55 Family history of malignant neoplasm Social History Social History Social History: The patient lives with his of over 40 years. He has 2 biologic children and 1 stepchild. 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 He has a distant history of smoking 20 pack per year. He quit smoking in the in then chewed tobacco for another 10 years and quit in 1991. He used to drink a few alcoholic beverages a month but only rarely drinks alcohol now. Code status: DNR/DNI Healthcare power of assistant prosecuting attorney: Smoking packs per day: 2.5 Smoking cigarettes per day: 50.0 Years smoked: 10 Smoking pack-years: 25.00 Smoking status: Former smoker Second hand tobacco smoke exposure: Yes Alcohol intake: current Drinks per week: 1 Alcohol use details: socially Substance use: never Substance use type: does not use Do You Feel Safe in your Home?: Yes Lack of Transportation: No Lack of Food: Never True Current Housing: I Have Housing Concerned About Future Housing: No Difficulty Paying Gas/Electric Bills: No Difficulty Paying for Meds: No Currently Unemployed: No Education: Master's Degree or Higher Difficulty w/ Childcare or Family Care: No Living arrangements: with family Additional living arrangements comments: lives with Occupation/Education: retired 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 Gender identity (if verbalized by the patient): Male Spiritual care concerns: No Meds Home Medications and Allergies Home Medications ?Medication ?Instructions ?Recorded ?Confirmed ?Type nitroglycerin 0.4 mg sublingual 0.4 mg sublingual Q5M PRN chest 01/16/23 12/09/24 Rx tablet pain #25 tabs nystatin 100,000 unit/gram topical 1 applic topical BID #30 grams 02/29/24 12/09/24 Rx cream nystatin 100,000 unit/gram topical 1 applic topical BID #30 grams 02/29/24 12/09/24 Rx powder donepezil 5 mg tablet (Aricept) 5 mg PO QHS #30 tabs 05/29/24 12/09/24 Rx amlodipine 5 mg tablet 5 mg PO DAILY #90 tabs 07/31/24 12/09/24 Rx metoprolol succinate 50 mg 50 mg PO DAILY #90 tabs 07/31/24 12/09/24 Rx tablet,extended release 24 hr aspirin 81 mg tablet,delayed 81 mg PO DAILY 08/06/24 12/09/24 History release (Adult Low Dose Aspirin) doxazosin 2 mg tablet See Rx Instructions .Route 08/17/24 12/09/24 Rx .COMPLEX #90 tabs bacitracin 500 unit/gram topical 1 applic topical BID 08/21/24 12/09/24 History ointment dibucaine 1 % topical ointment 1 applic topical QID PRN Pain of 08/21/24 12/09/24 History groin ulcer triamcinolone acetonide 0.1 % 1 applic topical DAILY 08/21/24 12/09/24 History topical cream empagliflozin 25 mg tablet 25 mg PO QAM #90 tabs 09/12/24 12/09/24 Rx (Jardiance) glimepiride 1 mg tablet 1 mg PO QAM #90 tabs 09/27/24 12/09/24 Rx metformin 500 mg tablet,extended See Rx Instructions .Route 09/27/24 12/09/24 Rx release 24 hr .COMPLEX #360 tabs rosuvastatin 40 mg tablet 40 mg PO DAILY #90 tabs 09/27/24 12/09/24 Rx meloxicam 15 mg tablet See Rx Instructions .Route 10/17/24 12/09/24 Rx .COMPLEX #90 tabs dutasteride 0.5 mg capsule 0.5 mg PO DAILY #90 caps 11/08/24 12/09/24 Rx levothyroxine 75 mcg tablet 75 mcg PO DAILY #90 tabs 11/10/24 12/09/24 Rx cholecalciferol (vitamin D3) 50 2,000 unit PO DAILY 12/09/24 12/09/24 History mcg (2,000 unit) capsule prednisone 20 mg tablet 40 mg PO DAILY 12/09/24 12/09/24 History alendronate 70 mg tablet 70 mg PO WEEKLY 12/10/24 12/10/24 History Allergies Allergy/AdvReac Type Severity Reaction Status Date / Time finasteride Allergy Intermediate Hives Verified 08/21/24 07:58 JOSHUA Inhibitors Allergy Unknown Cough Verified 08/21/24 07:58 ARB-Angiotensin Receptor Allergy Unknown Cough Verified 08/21/24 07:58 Antagonist lisinopril Allergy Unknown Cough Verified 08/21/24 07:58 Vital Signs Vital Signs - 24 hr 12/11/24 20:51 12/12/24 05:17 12/12/24 09:30 Temperature 96.9 F L 97.8 F Pulse Rate 72 63 Respiratory Rate 16 14 Blood Pressure 120/45 L 143/60 H Pulse Oximetry 97 99 Oxygen Delivery Room Air 12/12/24 13:59 Temperature 96.9 F L Pulse Rate 93 Respiratory Rate 20 Blood Pressure 107/50 L Pulse Oximetry 94 Oxygen Delivery Exam Const: General: no acute distress Eyes: General: appearance normal, both eyes and all related structures Resp: Effort & Inspection: normal respiratory effort Urinary Catheter: Urinary Catheter: urine clear (clear omar with purewick) Skin: General skin exam: normal color Neuro: Speech: normal speech Psych: Speech and movement: Normal speech and movement present Results Labs 12/12/24 06:48 12/11/24 05:56 Labs: Short CBC 12/12/24 Range/Units 06:48 WBC 18.1 H (4.5-10.0) K/mm3 Hgb 12.2 L (14.0-18.0) g/dL Hct 40.9 L (42.0-52.0) % Plt Count 266 (150-375) k/mm3
--- NOTE | 2024-12-12 16:35 | P.PNIM_ITS ---
Progress Note: A&P Assessment and Plan (1) UTI (urinary tract infection): Qualifiers: Urinary tract infection type: acute cystitis Hematuria presence: with hematuria Qualified Code(s): N30.01 - Acute cystitis with hematuria Code(s): N39.0 - Urinary tract infection, site not specified Status: Acute Assessment and Plan: Acute cystitis following recent cystoscopy with transurethral resection of urothelial carcinoma Started on Rocephin Monitor urine culture (2) Bladder cancer: Qualifiers: Bladder location: unspecified site Qualified Code(s): C67.9 - Malignant neoplasm of bladder, unspecified Code(s): C67.9 - Malignant neoplasm of bladder, unspecified Status: Acute Assessment and Plan: as above (3) Type 2 diabetes mellitus with hyperglycemia: Qualifiers: 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 insulin use: without penitentiary use Qualified Code(s): E11.65 - Type 2 diabetes mellitus with hyperglycemia Code(s): E11.65 - Type 2 diabetes mellitus with hyperglycemia Status: Chronic Assessment and Plan: SSI hypoglycemia protocol (4) Essential hypertension: Code(s): I10 - Essential (primary) hypertension Status: Chronic Assessment and Plan: hold antihypertensive medications due to low blood pressure (5) Pyoderma gangrenosum: Code(s): L88 - Pyoderma gangrenosum Status: Acute Assessment and Plan: continue wound care currently patient has in perirectal area and left inguinal area (6) Bacteremia: Code(s): R78.81 - Bacteremia Status: Acute Assessment and Plan: Source possibly UTI Blood culture from 0 6/0 4 shows Staph aureus Consulted cardiology for Trans thoracic echocardiogram Monitor leukocytosis started vancomycin Subjective Date/time seen: 12/12/24 16:35 Interval history: Possible YOLANDE tomorrow. Review of Systems Review of Systems: Unobtainable due to patient's history of dementia. Exam Narrative: Weight 89.1 kg BMI 26.6 Const: Other: Acutely ill-appearing, elderly, obese HENMT: Other: Mucous membranes are dry, no oral pharyngeal erythema, crowded posterior oropharynx with class 3 ASA Eyes: Other: Pupils are equal and reactive, bilateral lens implants noted, no scleral icterus Neck: Other: No JVD, large neck circumference Resp: Other: Clear to auscultation bilaterally anterior velazquez, no increased work of breathing Cardio: Other: Regular rate, regular rhythm, 2/6 systolic murmur, no JVD GI: Other: Obese, soft, tender in suprapubic region, normoactive bowel sounds : Other: Uncircumcised male, incontinent of urine, large ulcer in the left groin please see nursing documentation for size and imaging Skin: Other: Large ulcer in the left groin with yellow base, no overt drainage, appearance consistent with patient's history of pyoderma gangrenosum, sacral wounds as well Neuro: Other: Alert oriented to person, place and situation confused as to the month in year, speech is clear patient is only answering direct questions, no facial asymmetry Extrem: Other: 5/5 manager surgical strength bilaterally, no clubbi ng, cyanosis or edema Psych: Other: Flat affect, cooperative Objective Data Vital Signs Vital Signs: Vital Signs - 24 hr 12/11/24 20:51 12/12/24 05:17 12/12/24 09:30 Temperature 96.9 F L 97.8 F Pulse Rate 72 63 Respiratory Rate 16 14 Blood Pressure 120/45 L 143/60 H Pulse Oximetry 97 99 Oxygen Delivery Room Air 12/12/24 13:59 Temperature 96.9 F L Pulse Rate 93 Respiratory Rate 20 Blood Pressure 107/50 L Pulse Oximetry 94 Oxygen Delivery Intake/Output Intake/Output: Intake & Output 12/09/24 12/10/24 12/11/24 12/12/24 23:59 23:59 23:59 23:59 Intake Total 5922 415 3963 460 Output Total 1400 1700 Balance 1440 381 [phone] Meds/Results Medications: Active Medications Generic Name Dose Route Start Last Admin Trade Name Freq PRN Reason Stop Dose Admin Acetaminophen 650 mg 12/09/24 13:22 12/11/24 09:04 Acetaminophen 325 Mg Tablet PO 650 mg Q4H PRN Administration Mild Pain (1-3) or Fever Hydrocodone Bitart/Acetaminophen 1 tab 12/11/24 11:08 12/12/24 13:06 Hydrocodone/Acetaminophen (*Crx) 5-325 Mg Tablet PO 1 tab Q4H PRN Administration Pain Rated 4-6 Aspirin 81 mg 12/10/24 09:00 12/12/24 09:15 Aspirin 81 Mg Enteric Tablet PO 81 mg DAILY NEHEMIAH Administration Bacitracin 1 applic 12/10/24 09:00 12/12/24 09:15 Bacitracin Ointment 15 Gm Tube TOPICAL 1 applic BID NEHEMIAH Administration Dextrose 12.5 gm 12/09/24 16:16 Dextrose 50% 25 Gm/50 Ml Syringe IV PUSH PRN PRN Hypoglycemia Protocol Dibucaine 1 applic 12/09/24 19:26 12/10/24 10:39 Dibucaine 1% Ointment 30 Gm Tube TOPICAL 1 applic QID PRN Administration Pain of groin ulcer Donepezil HCl 5 mg 12/09/24 21:00 12/11/24 20:38 Donepezil Hcl 5 Mg Tablet PO 5 mg QHS NEHEMIAH Administration Doxazosin Mesylate 2 mg 12/09/24 21:00 12/11/24 20:38 Doxazosin Mesylate 2 Mg Tablet BY MOUTH 2 mg HS NEHEMIAH Administration Dutasteride 0.5 mg 12/10/24 09:00 12/12/24 09:15 Dutasteride 0.5 Mg Capsule PO 0.5 mg DAILY NEHEMIAH Administration Fluconazole 200 mg 12/12/24 09:00 12/12/24 09:15 Fluconazole 100 Mg Tablet PO 12/22/24 09:01 200 mg QAM NEHEMIAH Administration Fluticasone Propionate 1 spray 12/11/24 09:00 12/12/24 09:15 Fluticasone Propionate 0.05% Na Spr 16 Gm Btl (*Bkc) XX 1 spray DAILY NEHEMIAH Administration Glimepiride 1 mg 12/10/24 09:00 12/10/24 10:30 Glimepiride 1 Mg Tablet PO 1 mg QAM NEHEMIAH Administration Glucagon 1 mg 12/09/24 16:16 Glucagon For Inj 1 Mg Vial IM PRN PRN Hypoglycemia Protocol Glucose 15 gm 12/09/24 16:16 Glucose Oral Gel 15 Gm Of Glucse In 37.5 Gm Tube PO PRN PRN Hypoglycemia Protocol Dextrose 1,000 mls @ 100 mls/hr 12/09/24 16:16 Dextrose 5% 1,000 Ml IVPB PRN PRN Hypoglycemia Protocol Vancomycin HCl 1,250 mg in 250 mls @ 166.667 mls/hr 12/12/24 14:00 12/12/24 14:09 Vancomycin 1,250 Mg/Ns 250 Ml IVPB 166.67 mls/hr Q24H NEHEMIAH Administration Insulin Aspart 1 - 2 units 12/09/24 21:00 12/11/24 20:38 Insulin Aspart (*Bkc) 100 Units/Ml SUB-Q 2 units HS [facility] Administration Protocol Insulin Aspart 2 - 5 units 12/09/24 17:00 12/12/24 12:19 Insulin Aspart (*Bkc) 100 Units/Ml SUB-Q 3 units TIDWM NEHEMIAH Administration Protocol Levothyroxine Sodium 75 mcg 12/10/24 06:30 12/12/24 06:03 Levothyroxine Sodium 75 Mcg Tablet PO 75 mcg DAILY@0630 NEHEMIAH Administration Meloxicam 15 mg 12/10/24 09:00 12/12/24 09:15 Meloxicam 7.5 Mg Tablet PO 01/10/25 08:59 15 mg DAILY NEHEMIAH Administration Metformin HCl 2,000 mg 12/10/24 09:00 12/10/24 10:28 Metformin Hcl Xr 500 Mg Tab.Sr.24h BY MOUTH 2,000 mg DAILY NEHEMIAH Administration Metoprolol Succinate 50 mg 12/10/24 09:00 12/10/24 10:28 Metoprolol Succinate Ext Rel 50 Mg Tabcr PO 50 mg DAILY [facility] Administration Miconazole Nitrate 1 applic 12/10/24 09:00 12/12/24 09:15 Miconazole Nitrate 2% Cream 30 Gm Tube TOPICAL 1 applic BID [facility] Administration Morphine Sulfate 2 mg 12/09/24 13:22 12/12/24 14:09 Morphine Sulfate (*Crx) 2 Mg/Ml Inj IV PUSH 2 mg Q2H PRN Administration Pain Rated 7-10 Nitroglycerin 0.4 mg 12/09/24 18:28 Nitroglycerin Sl 0.4 Mg Tablet SUBLINGUAL Q5M PRN chest pain Ondansetron HCl 4 mg 12/09/24 13:22 12/09/24 19:49 Ondansetron Inj 4 Mg/2 Ml Vial IV PUSH 4 mg Q4H PRN Administration Nausea Perflutren Lipid Microsphere 0 ml 12/11/24 14:24 Perflutren Lipid Microspheres 1.5 Ml Vial Diluted To 10 Ml Total Volume IV PUSH 12/14/24 14:24 ONCE PRN adequate visualization Protocol Prednisone 40 mg 12/09/24 19:30 12/12/24 09:15 Prednisone 20 Mg Tablet PO 12/17/24 09:01 40 mg DAILY NEHEMIAH Administration Prednisone 20 mg 12/18/24 09:00 Prednisone 20 Mg Tablet PO 12/31/24 09:01 DAILY [facility] Rosuvastatin Calcium 40 mg 12/10/24 09:00 12/12/24 09:15 Rosuvastatin 20 Mg Tablet PO 40 mg DAILY NEHEMIAH Administration Triamcinolone Acetonide 1 applic 12/10/24 09:00 12/12/24 09:15 Triamcinolone Acet 0.1% Cream 15 Gm Tube TOPICAL 1 applic DAILY NEHEMIAH Administration Vitamin D 50 mcg 12/10/24 09:00 12/12/24 09:15 Cholecalciferol (Vitamin D3) 25 Mcg (1,000 Units) Tablet PO 50 mcg DAILY NEHEMIAH Administration Radiology Results: ITS Impressions Abdomen/Pelvis CT 12/09/24 10:25 IMPRESSION: 1. Abnormal bladder wall thickening with surrounding fatty infiltration and fluid, suspicious for acute cystitis. Clinically correlate. 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 Labs Labs: Laboratory Results - last 24 hr 12/11/24 12/11/24 12/12/24 16:47 19:53 06:48 WBC 18.1 H RBC 4.40 L Hgb 12.2 L Hct 40.9 L MCV 93.0 MCH 27.7 MCHC 29.8 L RDW 14.9 H Plt Count 266 MPV 10.3 POC Capillary Glucose 321 H 331 H 12/12/24 12/12/24 07:48 11:31 WBC RBC Hgb Hct MCV MCH MCHC RDW Plt Count MPV POC Capillary Glucose 254 H 255 H Quality VTE Prophylaxis VTE prophylaxis: mechanical ordered (SCDs) Hospitalist MIPS Advance Care Plan I have confirmed that the patient's Advanced Care Plan is present, code status is documented, or surrogate decision maker is listed in patient medical record.: Yes Medication Reconciliation I have utilized all available resources to obtain, update and review the patients current medications (includes all prescriptions, OTC, herbals, cannabis, and nutritional supplements).: Yes
[2024-12-12 16:38] LABS: Alanine Aminotransferase 58 U/L (6-50); Albumin Level 3.1 g/dL (3.5-5.1); Alkaline Phosphatase 116 U/L (38-126); Anion Gap 10 mmol/L (4-12); Aspartate Amino Transferase 47 U/L (17-59); Bilirubin,Total 0.4 mg/dL (0.2-1.3); Blood Urea Nitrogen 28 mg/dL (9-20); Carbon Dioxide 16 mmol/L (22-30); Chloride 109 mmol/L (98-107); Estimated CRCL calculation 62 ml/min; Estimated Glomerular Filt Rate > 60; Glucose 243 mg/dL (65-110); Potassium 4.7 mmol/L (3.4-5.0); Sodium 135 mmol/L (137-145); Total Protein 6.4 g/dL (6.3-8.2)
[2024-12-12 16:53] LABS: Glucose Point of Care 346 mg/dl (65-105)
[2024-12-12 20:26] LABS: Glucose Point of Care 352 mg/dl (65-105)
[2024-12-12] MEDS: DOXAZOSIN MESYLATE 2 MG TABLET BY MOUTH (20:27)
[2024-12-12] MEDS: DONEPEZIL HCL 5 MG TABLET PO (20:27)
[2024-12-12 22:00] VITALS: BP 138/70; PULSE 87; RESP 18; TEMP 36.4; O2SAT 91
[2024-12-13] VITALS (7 sets, daily range): BP systolic 101–125; BP diastolic 56–67; PULSE 74–94; RESP 10–20; TEMP 35.8–36.6; O2SAT 95–100
[2024-12-13] MEDS: HYDROcodone/acetaminophen (*CRX) 5-325 MG TABLET 1 TAB PO ×3 (03:18→15:34)
[2024-12-13 07:14] LABS: Hematocrit 35.9 % (42.0-52.0); Hemoglobin 11.7 g/dL (14.0-18.0); Mean Corpuscular HGB Conc 32.6 g/dl (32-36); Mean Corpuscular Hemoglobin 28.5 pg (26-34); Mean Corpuscular Volume 87.6 fl (80-100); Mean Platelet Volume 9.6 fl (7.4-10.4); Platelet Count Result 286 k/mm3 (150-375); Red Cell Distribution Width 14.7 % (11.5-14.5); White Blood Count 16.1 K/mm3 (4.5-10.0)
[2024-12-13 07:30] LABS: Alanine Aminotransferase 41 U/L (6-50); Albumin Level 2.7 g/dL (3.5-5.1); Alkaline Phosphatase 108 U/L (38-126); Anion Gap 8 mmol/L (4-12); Aspartate Amino Transferase 19 U/L (17-59); Bilirubin,Total 0.3 mg/dL (0.2-1.3); Blood Urea Nitrogen 26 mg/dL (9-20); Calcium 8.9 mg/dL (8.4-10.2); Carbon Dioxide 20 mmol/L (22-30); Chloride 108 mmol/L (98-107); Estimated CRCL calculation 55 ml/min; Estimated Glomerular Filt Rate > 60; Glucose 249 mg/dL (65-110); Potassium 3.9 mmol/L (3.4-5.0); Sodium 136 mmol/L (137-145); Total Protein 5.9 g/dL (6.3-8.2)
--- NOTE | 2024-12-13 07:58 | P.PNIM_ITS ---
Progress Note: A&P Assessment and Plan (1) UTI (urinary tract infection): Qualifiers: Hematuria presence: with hematuria Urinary tract infection type: acute cystitis Qualified Code(s): N30.01 - Acute cystitis with hematuria Code(s): N39.0 - Urinary tract infection, site not specified Status: Acute Assessment and Plan: Acute cystitis following recent cystoscopy with transurethral resection of urothelial carcinoma Discussed Rocephin Reviewed urine culture Started on vancomycin (2) Bladder cancer: Qualifiers: Bladder location: unspecified site Qualified Code(s): C67.9 - Malignant neoplasm of bladder, unspecified Code(s): C67.9 - Malignant neoplasm of bladder, unspecified Status: Acute Assessment and Plan: as above (3) Type 2 diabetes mellitus with hyperglycemia: Qualifiers: Diabetes mellitus shelter insulin use: without shelter use Qualified Code(s): E11.65 - Type 2 diabetes mellitus with hyperglycemia Code(s): E11.65 - Type 2 diabetes mellitus with hyperglycemia Status: Chronic Assessment and Plan: SSI hypoglycemia protocol (4) Essential hypertension: Code(s): I10 - Essential (primary) hypertension Status: Chronic Assessment and Plan: hold antihypertensive medications due to low blood pressure (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 Patient needs to follow-up with urologist at [facility]. Pending transesophageal echocardiogram with Cardiology Review of Systems Review of Systems: Unobtainable due to patient's history of dementia. Exam Narrative: Weight 89.1 kg BMI 26.6 Const: Other: Acutely ill-appearing, elderly, obese HENMT: Other: Mucous membranes are dry, no oral pharyngeal erythema, crowded posterior oropharynx with class 3 ASA Eyes: Other: Pupils are equal and reactive, bilateral lens implants noted, no scleral icterus Neck: Other: No JVD, large neck circumference Resp: Other: Clear to auscultation bilaterally anterior velazquez, no increased work of breathing Cardio: Other: Regular rate, regular rhythm, 2/6 systolic murmur, no JVD GI: Other: Obese, soft, tender in suprapubic region, normoactive bowel sounds : Other: Uncircumcised male, incontinent of urine, large ulcer in the left groin please see nursing documentation for size and imaging Skin: Other: Large ulcer in the left groin with yellow base, no overt drainage, appearance consistent with patient's history of pyoderma gangrenosum, sacral wounds as well Neuro: Other: Alert oriented to person, place and situation confused as to the month in year, speech is clear patient is only answering direct questions, no facial asymmetry Extrem: Other: 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, no clubbi ng, cyanosis or edema Psych: Other: Flat affect, cooperative Objective Data Vital Signs Vital Signs: Vital Signs - 24 hr 12/12/24 09:30 12/12/24 13:59 12/12/24 22:00 Temperature 96.9 F L 97.6 F Pulse Rate 93 87 Respiratory Rate 20 18 Blood Pressure 107/50 L 138/70 Pulse Oximetry 94 91 Oxygen Delivery Room Air 12/13/24 06:00 Temperature 97.7 F Pulse Rate 74 Respiratory Rate 18 Blood Pressure 125/65 Pulse Oximetry 98 Oxygen Delivery Intake/Output Intake/Output: Intake & Output 12/10/24 12/11/24 12/12/24 12/13/24 23:59 23:59 23:59 23:59 Intake Total 850 1078 910 Output Total 1400 2500 850 Balance 777 -398 -1590 -850 Meds/Results Medications: Active Medications Generic Name Dose Route Start Last Admin Trade Name Freq PRN Reason Stop Dose Admin Acetaminophen 650 mg 12/09/24 13:22 12/11/24 09:04 Acetaminophen 325 Mg Tablet PO 650 mg Q4H PRN Administration Mild Pain (1-3) or Fever Hydrocodone Bitart/Acetaminophen 1 tab 12/11/24 11:08 12/13/24 03:18 Hydrocodone/Acetaminophen (*Crx) 5-325 Mg Tablet PO 1 tab Q4H PRN Administration Pain Rated 4-6 Aspirin 81 mg 12/10/24 09:00 12/12/24 09:15 Aspirin 81 Mg Enteric Tablet PO 81 mg DAILY [facility] Administration Bacitracin 1 applic 12/10/24 09:00 12/12/24 17:48 Bacitracin Ointment 15 Gm Tube TOPICAL 1 applic BID [facility] Administration Dextrose 12.5 gm 12/09/24 16:16 Dextrose 50% 25 Gm/50 Ml Syringe IV PUSH PRN PRN Hypoglycemia Protocol Dibucaine 1 applic 12/09/24 19:26 12/10/24 10:39 Dibucaine 1% Ointment 30 Gm Tube TOPICAL 1 applic QID PRN Administration Pain of groin ulcer Donepezil HCl 5 mg 12/09/24 21:00 12/12/24 20:27 Donepezil Hcl 5 Mg Tablet PO 5 mg QHS [facility] Administration Doxazosin Mesylate 2 mg 12/09/24 21:00 12/12/24 20:27 Doxazosin Mesylate 2 Mg Tablet BY MOUTH 2 mg HS [facility] Administration Dutasteride 0.5 mg 12/10/24 09:00 12/12/24 09:15 Dutasteride 0.5 Mg Capsule PO 0.5 mg DAILY [facility] Administration Fluconazole 200 mg 12/12/24 09:00 12/12/24 09:15 Fluconazole 100 Mg Tablet PO 12/22/24 09:01 200 mg QAM [facility] Administration Fluticasone Propionate 1 spray 12/11/24 09:00 12/12/24 09:15 Fluticasone Propionate 0.05% Na Spr 16 Gm Btl (*Bkc) XX 1 spray DAILY [facility] Administration Glimepiride 1 mg 12/10/24 09:00 12/10/24 10:30 Glimepiride 1 Mg Tablet PO 1 mg QAM [facility] Administration Glucagon 1 mg 12/09/24 16:16 Glucagon For Inj 1 Mg Vial IM PRN PRN Hypoglycemia Protocol Glucose 15 gm 12/09/24 16:16 Glucose Oral Gel 15 Gm Of Glucse In 37.5 Gm Tube PO PRN PRN Hypoglycemia Protocol Dextrose 1,000 mls @ 100 mls/hr 12/09/24 16:16 Dextrose 5% 1,000 Ml IVPB PRN PRN Hypoglycemia Protocol Vancomycin HCl 1,250 mg in 250 mls @ 166.667 mls/hr 12/12/24 14:00 12/12/24 15:39 Vancomycin 1,250 Mg/Ns 250 Ml IVPB Infused Q24H [facility] Infusion Insulin Aspart 1 - 2 units 12/09/24 21:00 12/12/24 20:31 Insulin Aspart (*Bkc) 100 Units/Ml SUB-Q 2 units HS [facility] Administration Protocol Insulin Aspart 2 - 5 units 12/09/24 17:00 12/12/24 17:44 Insulin Aspart (*Bkc) 100 Units/Ml SUB-Q 4 units TIDWM [facility] Administration Protocol Levothyroxine Sodium 75 mcg 12/10/24 06:30 12/13/24 05:37 Levothyroxine Sodium 75 Mcg Tablet PO Not Given DAILY@0630 [facility] Meloxicam 15 mg 12/10/24 09:00 12/12/24 09:15 Meloxicam 7.5 Mg Tablet PO 01/10/25 08:59 15 mg DAILY [facility] Administration Metformin HCl 2,000 mg 12/10/24 09:00 12/10/24 10:28 Metformin Hcl Xr 500 Mg Tab.Sr.24h BY MOUTH 2,000 mg DAILY [facility] Administration Metoprolol Succinate 50 mg 12/10/24 09:00 12/10/24 10:28 Metoprolol Succinate Ext Rel 50 Mg Tabcr PO 50 mg DAILY [facility] Administration Miconazole Nitrate 1 applic 12/10/24 09:00 12/12/24 17:48 Miconazole Nitrate 2% Cream 30 Gm Tube TOPICAL 1 applic BID [facility] Administration Morphine Sulfate 2 mg 12/09/24 13:22 12/12/24 14:09 Morphine Sulfate (*Crx) 2 Mg/Ml Inj IV PUSH 2 mg Q2H PRN Administration Pain Rated 7-10 Nitroglycerin 0.4 mg 12/09/24 18:28 Nitroglycerin Sl 0.4 Mg Tablet SUBLINGUAL Q5M PRN chest pain Ondansetron HCl 4 mg 12/09/24 13:22 12/09/24 19:49 Ondansetron Inj 4 Mg/2 Ml Vial IV PUSH 4 mg Q4H PRN Administration Nausea Perflutren Lipid Microsphere 0 ml 12/11/24 14:24 Perflutren Lipid Microspheres 1.5 Ml Vial Diluted To 10 Ml Total Volume IV PUSH 12/14/24 14:24 ONCE PRN adequate visualization Protocol Prednisone 40 mg 12/09/24 19:30 12/12/24 09:15 Prednisone 20 Mg Tablet PO 12/17/24 09:01 40 mg DAILY [facility] Administration Prednisone 20 mg 06/11/25 09:00 Prednisone 20 Mg Tablet PO 12/31/24 09:01 DAILY [facility] Rosuvastatin Calcium 40 mg 12/10/24 09:00 12/12/24 09:15 Rosuvastatin 20 Mg Tablet PO 40 mg DAILY [facility] Administration Triamcinolone Acetonide 1 applic 12/10/24 09:00 12/12/24 09:15 Triamcinolone Acet 0.1% Cream 15 Gm Tube TOPICAL 1 applic DAILY [facility] Administration Vitamin D 50 mcg 12/10/24 09:00 12/12/24 09:15 Cholecalciferol (Vitamin D3) 25 Mcg (1,000 Units) Tablet PO 50 mcg DAILY [facility] Administration Radiology Results: ITS Impressions Abdomen/Pelvis CT 12/09/24 10:25 IMPRESSION: 1. Abnormal bladder wall thickening with surrounding fatty infiltration and fluid, suspicious for acute cystitis. Clinically correlate. 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 Labs Labs: Laboratory Results - last 24 hr 12/12/24 12/12/24 12/12/24 06:48 11:31 16:50 WBC RBC Hgb Hct MCV MCH MCHC RDW Plt Count MPV Sodium 135 L Potassium 4.7 Chloride 109 H Carbon Dioxide 16 L Anion Gap 10 BUN 28 H Creatinine 0.89 Estim Creat Clear Calc 62 Estimated GFR > 60 Glucose 243 H POC Capillary Glucose 255 H 346 H Calcium 9.0 Total Bilirubin 0.4 AST 47 ALT 58 H Alkaline Phosphatase 116 Total Protein 6.4 Albumin 3.1 L 12/12/24 12/13/24 20:21 07:00 WBC 16.1 H RBC 4.10 L Hgb 11.7 L Hct 35.9 L MCV 87.6 D MCH 28.5 MCHC 32.6 RDW 14.7 H Plt Count 286 MPV 9.6 Sodium 136 L Potassium 3.9 Chloride 108 H Carbon Dioxide 20 L Anion Gap 8 BUN 26 H Creatinine 1.00 Estim Creat Clear Calc 55 Estimated GFR > 60 Glucose 249 H POC Capillary Glucose 352 H Calcium 8.9 Total Bilirubin 0.3 AST 19 ALT 41 Alkaline Phosphatase 108 Total Protein 5.9 L Albumin 2.7 L Quality VTE Prophylaxis VTE prophylaxis: mechanical ordered (SCDs) Hospitalist MIPS Advance Care Plan I have confirmed that the patient's Advanced Care Plan is present, code status is documented, or surrogate decision maker is listed in patient medical record.: Yes Medication Reconciliation I have utilized all available resources to obtain, update and review the patients current medications (includes all prescriptions, OTC, herbals, cannabis, and nutritional supplements).: Yes
[2024-12-13 08:14] LABS: Glucose Point of Care 226 mg/dl (65-105)
[2024-12-13 11:44] LABS: Glucose Point of Care 223 mg/dl (65-105)
--- NOTE | 2024-12-13 13:04 | P.PCNTEE_ITS ---
YOLANDE TransEsophageal Echocardiogram Date of procedure: 12/13/24 Procedure Type: Brief History Of Present Illness: Patient is an 84 year old male who is referred for YOLANDE to evaluate for infective endocarditis. Procedure In Detail: After verbal and written informed consent was obtained, the patient risks, benefits, and alternatives explained in detail. The patient agreed to proceed with the plan of care as outlined above.?The patient was then placed in the appropriate 30 to 45 degree angle supine position at a slight left lateral decubitus position.?Patient was monitored throughout the study with telemetry, oxygen saturation, end-tidal CO2 monitoring, blood pressure, heart rate, and respirations.?The posterior hypopharynx was then locally anesthetized using repeated administration of Hurricaine spray as well as gargled viscous lidocaine. After local anesthetic of the posterior hypopharynx was achieved and the oral bite block placed, sedation was administered by the Anesthesia team.?After confirmation of adequate moderate sedation, the transesophageal echocardiogram probe was advanced through the oral bite block into the posterior hypopharynx and into the esophagus easily and without complication.?Multiple, multiplanar echocardiographic images were obtained in multiple standard re- projections.?At the conclusion of the study, the transesophageal echocardiogram probe was removed easily and without complication. The patient tolerated the procedure well without difficulty.?Patient was in sinus rhythm throughout the study. Moderate Sedation / Anesthesia Administration: Sedation administered by the Anesthesiologist. FINDINGS: LEFT VENTRICLE: Size and systolic function were within normal limits. RIGHT VENTRICLE:?Size and systolic function within normal limits. LEFT ATRIUM: Normal size. RIGHT ATRIUM: Normal size. INTERATRIAL SEPTUM: Interatrial septum is anatomically normal. MITRAL VALVE: Mitral valve is anatomically normal with preserved leaflet excursion. No vegetations. AORTIC VALVE: The aortic valve was an anatomically normal 3 leaflet structure with normal leaflet excursion. No vegetations. TRICUSPID VALVE: Not well visualized. PULMONIC VALVE: Pulmonic valve was not well visualized. LEFT ATRIAL APPENDAGE: Full appendage was not well visualized, however, no thrombus noted in the part of appendage that was visualized. PERICARDIUM: The pericardium was anatomically normal without significant pericardial effusion. AORTA: Mild atherosclerotic disease. CONCLUSION: No evidence of infective endocarditis, although the tricuspid valves and pulmonary valves were not well visualized. Complications: None
--- NOTE | 2024-12-13 13:04 | WPDHPUPDATE1 ---
History and Physical Update Update Date/Time: 12/13/24 13:04 History and Physical has been reviewed, including an updated exam of the patient. There are NO changes in the patient's condition. Risks, benefits, and alternatives have been discussed and questions answered. Patient agrees to proceed with procedure.
--- NOTE | 2024-12-13 13:09 | P.PNCA_ITS ---
Progress Note: A&P Assessment and Plan (1) Bacteremia: Code(s): R78.81 - Bacteremia Status: Acute Plan Blood cultures from 12/09 show MRSA in 1/4 bottles (anaerobic bottle). Repeat blood cultures 12/12 negative to date. Given MRSA bacteremia, YOLANDE requested. Transthoracic echocardiogram shows normal LV function with no evidence of infective endocarditis. YOLANDE performed today and shows no evidence of infective endocarditis, although the tricuspid and pulmonic valves were not well visualized, however, no vegetations noted on those valves on the TTE either. YOLANDE findings communicated to Hospitalist. Cardiology will sign off at this time. Subjective Date/time seen: 12/13/24 13:09 Interval history: Reason for visit: Bacteremia. YOLANDE today. Review of Systems Cardiovascular: Cardiovascular: Reports as per HPI Exam Const: General: no acute distress HENMT: Mouth: Yes moist mucous membranes Eyes: General: appearance normal, both eyes and all related structures Sclera: sclerae normal Resp: Effort & Inspection: normal respiratory effort Cardio: Rate: regular rate Rhythm: regular rhythm Neuro: Speech: normal speech Psych: Mental Status: mental status grossly normal Affect: normal affect Objective Data Vital Signs Vital Signs: Vital Signs - 24 hr 12/12/24 13:59 12/12/24 22:00 12/13/24 06:00 Temperature 36.1 C L 36.4 C 36.5 C Pulse Rate 93 87 74 Respiratory Rate 20 18 18 Blood Pressure 107/50 L 138/70 125/65 Pulse Oximetry 94 91 98 Oxygen Flow Rate 12/13/24 13:00 Temperature Pulse Rate 86 Respiratory Rate 12 Blood Pressure 106/62 Pulse Oximetry 100 Oxygen Flow Rate 3 Intake/Output Intake/Output: Intake & Output 12/10/24 12/11/24 12/12/24 12/13/24 23:59 23:59 23:59 23:59 Intake Total 850 1078 910 120 Output Total 1400 2500 850 Balance 053 -155 -8476 -815 Meds/Results Medications: Active Medications Generic Name Dose Route Start Last Admin Trade Name Freq PRN Reason Stop Dose Admin Acetaminophen 650 mg 12/09/24 13:22 12/11/24 09:04 Acetaminophen 325 Mg Tablet PO 650 mg Q4H PRN Administration Mild Pain (1-3) or Fever Hydrocodone Bitart/Acetaminophen 1 tab 12/11/24 11:08 12/13/24 08:30 Hydrocodone/Acetaminophen (*Crx) 5-325 Mg Tablet PO 1 tab Q4H PRN Administration Pain Rated 4-6 Aspirin 81 mg 12/10/24 09:00 12/12/24 09:15 Aspirin 81 Mg Enteric Tablet PO 81 mg DAILY [facility] Administration Bacitracin 1 applic 12/10/24 09:00 12/12/24 17:48 Bacitracin Ointment 15 Gm Tube TOPICAL 1 applic BID [facility] Administration Dextrose 12.5 gm 12/09/24 16:16 Dextrose 50% 25 Gm/50 Ml Syringe IV PUSH PRN PRN Hypoglycemia Protocol Dibucaine 1 applic 12/09/24 19:26 12/10/24 10:39 Dibucaine 1% Ointment 30 Gm Tube TOPICAL 1 applic QID PRN Administration Pain of groin ulcer Donepezil HCl 5 mg 12/09/24 21:00 12/12/24 20:27 Donepezil Hcl 5 Mg Tablet PO 5 mg QHS [facility] Administration Doxazosin Mesylate 2 mg 12/09/24 21:00 12/12/24 20:27 Doxazosin Mesylate 2 Mg Tablet BY MOUTH 2 mg HS [facility] Administration Dutasteride 0.5 mg 12/10/24 09:00 12/12/24 09:15 Dutasteride 0.5 Mg Capsule PO 0.5 mg DAILY [facility] Administration Fluconazole 200 mg 12/12/24 09:00 12/12/24 09:15 Fluconazole 100 Mg Tablet PO 12/22/24 09:01 200 mg QAM [facility] Administration Fluticasone Propionate 1 spray 12/11/24 09:00 12/12/24 09:15 Fluticasone Propionate 0.05% Na Spr 16 Gm Btl (*Bkc) XX 1 spray DAILY [facility] Administration Glimepiride 1 mg 12/10/24 09:00 12/10/24 10:30 Glimepiride 1 Mg Tablet PO 1 mg QAM [facility] Administration Glucagon 1 mg 12/09/24 16:16 Glucagon For Inj 1 Mg Vial IM PRN PRN Hypoglycemia Protocol Glucose 15 gm 12/09/24 16:16 Glucose Oral Gel 15 Gm Of Glucse In 37.5 Gm Tube PO PRN PRN Hypoglycemia Protocol Dextrose 1,000 mls @ 100 mls/hr 12/09/24 16:16 Dextrose 5% 1,000 Ml IVPB PRN PRN Hypoglycemia Protocol Vancomycin HCl 1,250 mg in 250 mls @ 166.667 mls/hr 12/12/24 14:00 12/12/24 15:39 Vancomycin 1,250 Mg/Ns 250 Ml IVPB 01/22/25 23:59 Infused Q24H [facility] Infusion Insulin Aspart 1 - 2 units 12/09/24 21:00 12/12/24 20:31 Insulin Aspart (*Bkc) 100 Units/Ml SUB-Q 2 units HS [facility] Administration Protocol Insulin Aspart 2 - 5 units 12/09/24 17:00 12/13/24 08:14 Insulin Aspart (*Bkc) 100 Units/Ml SUB-Q Not Given TIDWM [facility] Protocol Levothyroxine Sodium 75 mcg 12/10/24 06:30 12/13/24 05:37 Levothyroxine Sodium 75 Mcg Tablet PO Not Given DAILY@0630 [facility] Meloxicam 15 mg 12/10/24 09:00 12/12/24 09:15 Meloxicam 7.5 Mg Tablet PO 01/10/25 08:59 15 mg DAILY [facility] Administration Metformin HCl 2,000 mg 12/10/24 09:00 12/10/24 10:28 Metformin Hcl Xr 500 Mg Tab.Sr.24h BY MOUTH 2,000 mg DAILY [facility] Administration Metoprolol Succinate 50 mg 12/10/24 09:00 12/10/24 10:28 Metoprolol Succinate Ext Rel 50 Mg Tabcr PO 50 mg DAILY [facility] Administration Miconazole Nitrate 1 applic 12/10/24 09:00 12/12/24 17:48 Miconazole Nitrate 2% Cream 30 Gm Tube TOPICAL 1 applic BID [facility] Administration Morphine Sulfate 2 mg 12/09/24 13:22 12/12/24 14:09 Morphine Sulfate (*Crx) 2 Mg/Ml Inj IV PUSH 2 mg Q2H PRN Administration Pain Rated 7-10 Nitroglycerin 0.4 mg 12/09/24 18:28 Nitroglycerin Sl 0.4 Mg Tablet SUBLINGUAL Q5M PRN chest pain Ondansetron HCl 4 mg 12/09/24 13:22 12/09/24 19:49 Ondansetron Inj 4 Mg/2 Ml Vial IV PUSH 4 mg Q4H PRN Administration Nausea Perflutren Lipid Microsphere 0 ml 12/11/24 14:24 Perflutren Lipid Microspheres 1.5 Ml Vial Diluted To 10 Ml Total Volume IV PUSH 12/14/24 14:24 ONCE PRN adequate visualization Protocol Prednisone 40 mg 12/09/24 19:30 12/12/24 09:15 Prednisone 20 Mg Tablet PO 12/17/24 09:01 40 mg DAILY [facility] Administration Prednisone 20 mg 12/18/24 09:00 Prednisone 20 Mg Tablet PO 12/31/24 09:01 DAILY [facility] Rosuvastatin Calcium 40 mg 12/10/24 09:00 12/12/24 09:15 Rosuvastatin 20 Mg Tablet PO 40 mg DAILY [facility] Administration Triamcinolone Acetonide 1 applic 12/10/24 09:00 12/12/24 09:15 Triamcinolone Acet 0.1% Cream 15 Gm Tube TOPICAL 1 applic DAILY [facility] Administration Vitamin D 50 mcg 12/10/24 09:00 12/12/24 09:15 Cholecalciferol (Vitamin D3) 25 Mcg (1,000 Units) Tablet PO 50 mcg DAILY [facility] Administration Radiology Results: ITS Impressions Abdomen/Pelvis CT 12/09/24 10:25 IMPRESSION: 1. Abnormal bladder wall thickening with surrounding fatty infiltration and fluid, suspicious for acute cystitis. Clinically correlate. 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 Labs Labs: Laboratory Results - last 24 hr 12/12/24 12/12/24 12/12/24 06:48 16:50 20:21 WBC RBC Hgb Hct MCV MCH MCHC RDW Plt Count MPV Sodium 135 L Potassium 4.7 Chloride 109 H Carbon Dioxide 16 L Anion Gap 10 BUN 28 H Creatinine 0.89 Estim Creat Clear Calc 62 Estimated GFR > 60 Glucose 243 H POC Capillary Glucose 346 H 352 H Calcium 9.0 Total Bilirubin 0.4 AST 47 ALT 58 H Alkaline Phosphatase 116 Total Protein 6.4 Albumin 3.1 L 12/13/24 12/13/24 12/13/24 07:00 07:59 11:42 WBC 16.1 H RBC 4.10 L Hgb 11.7 L Hct 35.9 L MCV 87.6 D MCH 28.5 MCHC 32.6 RDW 14.7 H Plt Count 286 MPV 9.6 Sodium 136 L Potassium 3.9 Chloride 108 H Carbon Dioxide 20 L Anion Gap 8 BUN 26 H Creatinine 1.00 Estim Creat Clear Calc 55 Estimated GFR > 60 Glucose 249 H POC Capillary Glucose 226 H 223 H Calcium 8.9 Total Bilirubin 0.3 AST 19 ALT 41 Alkaline Phosphatase 108 Total Protein 5.9 L Albumin 2.7 L
--- NOTE | 2024-12-13 13:14 | PCPTNOTE ---
The patient treatment was not able to be completed at this time due to patient out of room for YOLANDE. Will plan to continue treatment per plan of care.
--- NOTE | 2024-12-13 13:31 | P.PNAN_ITS ---
Anes - Initial Pre Proc Eval Procedure: Operation Date: 12/13/24 12:30 Proposed Procedures p Trans Esophageal Echo - Ripa Mesfin Molina MD Date/Time: 12/13/24 13:31 Surgeon: Luis Francois MD Pre Op Diagnosis: abdominal pain,cystitis Patient Data Age: 84 Gender: M Height: 1.83 m Weight: 89.1 kg Last Vital Signs Temp 36.5 C 12/13/24 06:00 Pulse 86 12/13/24 13:30 Resp 15 12/13/24 13:30 BP 118/67 12/13/24 13:30 Pulse Ox 97 12/13/24 13:30 O2 Del Method Room Air 12/13/24 13:30 O2 Flow Rate 3 12/13/24 13:00 Allergies Allergy/AdvReac Type Severity Reaction Status Date / Time finasteride Allergy Intermediate Hives Verified 08/21/24 07:58 JOSHUA Inhibitors Allergy Unknown Cough Verified 08/21/24 07:58 ARB-Angiotensin Receptor Allergy Unknown Cough Verified 08/21/24 07:58 Antagonist lisinopril Allergy Unknown Cough Verified 08/21/24 07:58 Home Medications ?Medication ?Instructions ?Recorded ?Confirmed ?Type nitroglycerin 0.4 mg sublingual 0.4 mg sublingual Q5M PRN chest 01/16/23 12/09/24 Rx tablet pain #25 tabs nystatin 100,000 unit/gram topical 1 applic topical BID #30 grams 02/29/24 12/09/24 Rx cream nystatin 100,000 unit/gram topical 1 applic topical BID #30 grams 02/29/24 12/09/24 Rx powder donepezil 5 mg tablet (Aricept) 5 mg PO QHS #30 tabs 05/29/24 12/09/24 Rx amlodipine 5 mg tablet 5 mg PO DAILY #90 tabs 07/31/24 12/09/24 Rx metoprolol succinate 50 mg 50 mg PO DAILY #90 tabs 07/31/24 12/09/24 Rx tablet,extended release 24 hr aspirin 81 mg tablet,delayed 81 mg PO DAILY 08/06/24 12/09/24 History release (Adult Low Dose Aspirin) doxazosin 2 mg tablet See Rx Instructions .Route 08/17/24 12/09/24 Rx .COMPLEX #90 tabs bacitracin 500 unit/gram topical 1 applic topical BID 08/21/24 12/09/24 History ointment dibucaine 1 % topical ointment 1 applic topical QID PRN Pain of 08/21/24 12/09/24 History groin ulcer triamcinolone acetonide 0.1 % 1 applic topical DAILY 08/21/24 12/09/24 History topical cream empagliflozin 25 mg tablet 25 mg PO QAM #90 tabs 09/12/24 12/09/24 Rx (Jardiance) glimepiride 1 mg tablet 1 mg PO QAM #90 tabs 09/27/24 12/09/24 Rx metformin 500 mg tablet,extended See Rx Instructions .Route 09/27/24 12/09/24 Rx release 24 hr .COMPLEX #360 tabs rosuvastatin 40 mg tablet 40 mg PO DAILY #90 tabs 09/27/24 12/09/24 Rx meloxicam 15 mg tablet See Rx Instructions .Route 10/17/24 12/09/24 Rx .COMPLEX #90 tabs dutasteride 0.5 mg capsule 0.5 mg PO DAILY #90 caps 11/08/24 12/09/24 Rx levothyroxine 75 mcg tablet 75 mcg PO DAILY #90 tabs 11/10/24 12/09/24 Rx cholecalciferol (vitamin D3) 50 2,000 unit PO DAILY 12/09/24 12/09/24 History mcg (2,000 unit) capsule prednisone 20 mg tablet 40 mg PO DAILY 12/09/24 12/09/24 History alendronate 70 mg tablet 70 mg PO WEEKLY 12/10/24 12/10/24 History Laboratory Tests 12/12/24 12/12/24 12/12/24 06:48 16:50 20:21 WBC RBC Hgb Hct MCV MCH MCHC RDW Plt Count MPV Sodium 135 L mmol/L (137-145) Potassium 4.7 mmol/L (3.4-5.0) Chloride 109 H mmol/L (98-107) Carbon Dioxide 16 L mmol/L (22-30) Anion Gap 10 mmol/L (4-12) BUN 28 H mg/dL (9-20) Creatinine 0.89 mg/dL (0.7-1.3) Estim Creat Clear Calc 62 ml/min Estimated GFR > 60 (59 - ) Glucose 243 H mg/dL (65-110) POC Capillary Glucose 346 H mg/dl 352 H mg/dl (65-105) (65-105) Calcium 9.0 mg/dL (8.4-10.2) Total Bilirubin 0.4 mg/dL (0.2-1.3) AST 47 U/L (17-59) ALT 58 H U/L (6-50) Alkaline Phosphatase 116 U/L (38-126) Total Protein 6.4 g/dL (6.3-8.2) Albumin 3.1 L g/dL (3.5-5.1) 12/13/24 12/13/24 12/13/24 07:00 07:59 11:42 WBC 16.1 H K/mm3 (4.5-10.0) RBC 4.10 L M/mm3 (4.6-6.20) Hgb 11.7 L g/dL (14.0-18.0) Hct 35.9 L % (42.0-52.0) MCV 87.6 D fl (80-100) MCH 28.5 pg (26-34) MCHC 32.6 g/dl (32-36) RDW 14.7 H % (11.5-14.5) Plt Count 286 k/mm3 (150-375) MPV 9.6 fl (7.4-10.4) Sodium 136 L mmol/L (137-145) Potassium 3.9 mmol/L (3.4-5.0) Chloride 108 H mmol/L (98-107) Carbon Dioxide 20 L mmol/L (22-30) Anion Gap 8 mmol/L (4-12) BUN 26 H mg/dL (9-20) Creatinine 1.00 mg/dL (0.7-1.3) Estim Creat Clear Calc 55 ml/min Estimated GFR > 60 (59 - ) Glucose 249 H mg/dL (65-110) POC Capillary Glucose 226 H mg/dl 223 H mg/dl (65-105) (65-105) Calcium 8.9 mg/dL (8.4-10.2) Total Bilirubin 0.3 mg/dL (0.2-1.3) AST 19 U/L (17-59) ALT 41 U/L (6-50) Alkaline Phosphatase 108 U/L (38-126) Total Protein 5.9 L g/dL (6.3-8.2) Albumin 2.7 L g/dL (3.5-5.1) Patient hx anesthesia problems: none Family hx anesthesia problems: none Results Review: All pre-operative results and documents have been reviewed as part of the pre- operative evaluation. 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 The patient's was told that he no longer needed CPAP Surgical History Surgical History History of colon surgery Cholesteatoma of attic of left ear History of coronary artery stent placement (~2014) X2 or 3 History of skin graft With skin flap History of biopsy Incisional biopsies nonhealing wound buttocks 02/02/2022 History of incision and drainage i&d pilonidal cyst 09/06/21 Hx of CABG (~2003) 2 vessel MASSEY to LAD saphenous vein graft to obtuse marginal Family History Family History Sibling Carcinoma of colon Family history of diabetes mellitus in first degree relative Family history of coronary artery disease Family history of malignant neoplasm of breast in first degree relative Father Family history of coronary artery disease Mother , pneumonia Pneumonia Other Diabetes mellitus Family history of arthritis Family history of congenital heart disease Family history of heart disease in male family member before age 55 Family history of malignant neoplasm Social History Social History Social History: The patient lives with his of over 40 years. He has 2 biologic children and 1 stepchild. 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 He has a distant history of smoking 20 pack per year. He quit smoking in the in then chewed tobacco for another 10 years and quit in 1991. He used to drink a few alcoholic beverages a month but only rarely drinks alcohol now. Code status: DNR/DNI Healthcare power of deputy county attorney: Smoking packs per day: 2.5 Smoking cigarettes per day: 50.0 Years smoked: 10 Smoking pack-years: 25.00 Smoking status: Former smoker Second hand tobacco smoke exposure: Yes Alcohol intake: current Drinks per week: 1 Alcohol use details: socially Substance use: never Substance use type: does not use Do You Feel Safe in your Home?: Yes Lack of Transportation: No Lack of Food: Never True Current Housing: I Have Housing Concerned About Future Housing: No Difficulty Paying Gas/Electric Bills: No Difficulty Paying for Meds: No Currently Unemployed: No Education: Master's Degree or Higher Difficulty w/ Childcare or Family Care: No Living arrangements: with family Additional living arrangements comments: lives with Occupation/Education: retired 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 Informed Consent: The patient's anesthetic plan and its attendant risks and benefits were discussed with the patient/family/POA. Questions were solicited and answers provided to the satisfaction of the patient/family/POA.
--- NOTE | 2024-12-13 14:31 | PCOTNOTE ---
The patient treatment was not able to be completed. Patient just got back from his YOLANDE and was agreeable to participate initially but then began to be tearful and reports he is having pain. RN is aware of pain. Will plan to continue treatment per plan of care.
[2024-12-13 15:20] LABS: Vancomycin Trough 10.3 ug/mL (10.0-20.0)
[2024-12-13 16:51] LABS: Glucose Point of Care 209 mg/dl (65-105)
[2024-12-13] MEDS: MORPHINE SULFATE (*CRX) 2 MG/ML INJ IV PUSH (17:42)
[2024-12-13] MEDS: VANCOMYCIN 1,500 MG/NS 500 ML 1,500 MG/500 ML BAG 250 MG IVPB (17:43)
[2024-12-13] MEDS: polyethylene glycoL 3350 17 GM POWD.PACK PO (18:33)
[2024-12-13] MEDS: FLUTICASONE PROPIONATE 0.05% NA SPR 16 GM BTL (*BKC) 1 SPRAY XX (18:35)
[2024-12-13] MEDS: DIBUCAINE 1% OINTMENT 30 GM TUBE 1 APPLIC TOPICAL (18:35)
[2024-12-13] MEDS: MICONAZOLE NITRATE 2% CREAM 30 GM TUBE 1 APPLIC TOPICAL (18:36)
[2024-12-13] MEDS: BACITRACIN OINTMENT 15 GM TUBE 1 APPLIC TOPICAL (18:36)
[2024-12-13] MEDS: TRIAMCINOLONE ACET 0.1% CREAM 15 GM TUBE 1 APPLIC TOPICAL (18:40)
[2024-12-13 20:42] LABS: Glucose Point of Care 261 mg/dl (65-105)
[2024-12-13] MEDS: INSULIN ASPART (*BKC) 100 UNITS/ML SUB-Q (21:03)
[2024-12-13] MEDS: DONEPEZIL HCL 5 MG TABLET PO (21:03)
[2024-12-14] MEDS: MORPHINE SULFATE (*CRX) 2 MG/ML INJ IV PUSH (00:05)
[2024-12-14] MEDS: HYDROcodone/acetaminophen (*CRX) 5-325 MG TABLET 1 TAB PO ×4 (04:25→15:32)
[2024-12-14 05:54] VITALS: BP 146/74; PULSE 98; RESP 17; TEMP 36.2; O2SAT 98
[2024-12-14 05:59] LABS: Hematocrit 35.7 % (42.0-52.0); Hemoglobin 11.3 g/dL (14.0-18.0); Mean Corpuscular HGB Conc 31.7 g/dl (32-36); Mean Corpuscular Hemoglobin 27.8 pg (26-34); Mean Corpuscular Volume 87.9 fl (80-100); Mean Platelet Volume 9.9 fl (7.4-10.4); Platelet Count Result 280 k/mm3 (150-375); Red Blood Count 4.06 M/mm3 (4.6-6.20); Red Cell Distribution Width 14.9 % (11.5-14.5)
[2024-12-14] MEDS: LEVOTHYROXINE SODIUM 75 MCG TABLET PO (06:05)
[2024-12-14 06:44] LABS: Alanine Aminotransferase 30 U/L (6-50); Albumin Level 2.7 g/dL (3.5-5.1); Alkaline Phosphatase 103 U/L (38-126); Anion Gap 11 mmol/L (4-12); Aspartate Amino Transferase 20 U/L (17-59); Bilirubin,Total 0.5 mg/dL (0.2-1.3); Blood Urea Nitrogen 23 mg/dL (9-20); Calcium 8.7 mg/dL (8.4-10.2); Carbon Dioxide 17 mmol/L (22-30); Chloride 109 mmol/L (98-107); Estimated CRCL calculation 56 ml/min; Estimated Glomerular Filt Rate > 60; Glucose 211 mg/dL (65-110); Potassium 3.7 mmol/L (3.4-5.0); Sodium 137 mmol/L (137-145); Total Protein 5.7 g/dL (6.3-8.2)
[2024-12-14 07:50] LABS: Glucose Point of Care 203 mg/dl (65-105)
[2024-12-14] MEDS: predniSONE 20 MG TABLET 40 MG PO (08:09)
[2024-12-14] MEDS: polyethylene glycoL 3350 17 GM POWD.PACK PO ×4 (08:09→23:44)
[2024-12-14] MEDS: DUTASTERIDE 0.5 MG CAPSULE PO (08:10)
[2024-12-14] MEDS: MELOXICAM 7.5 MG TABLET 15 MG PO (08:10)
[2024-12-14] MEDS: CHOLECALCIFEROL (VITAMIN D3) 25 MCG (1,000 UNITS) TABLET 50 MCG PO (08:10)
[2024-12-14] MEDS: FLUCONAZOLE 100 MG TABLET 200 MG PO (08:11)
[2024-12-14] MEDS: ROSUVASTATIN 20 MG TABLET 40 MG PO (08:11)
[2024-12-14] MEDS: ASPIRIN 81 MG ENTERIC TABLET PO (08:11)
[2024-12-14] MEDS: FLUTICASONE PROPIONATE 0.05% NA SPR 16 GM BTL (*BKC) 1 SPRAY XX (08:12)
[2024-12-14] MEDS: TRIAMCINOLONE ACET 0.1% CREAM 15 GM TUBE 1 APPLIC TOPICAL (08:13)
[2024-12-14] MEDS: MICONAZOLE NITRATE 2% CREAM 30 GM TUBE 1 APPLIC TOPICAL ×2 (08:13→17:04)
[2024-12-14] MEDS: BACITRACIN OINTMENT 15 GM TUBE 1 APPLIC TOPICAL ×2 (08:13→17:04)
[2024-12-14] MEDS: INSULIN ASPART (*BKC) 100 UNITS/ML SUB-Q ×4 (08:14→21:06)
--- NOTE | 2024-12-14 08:35 | P.PNIM_ITS ---
Progress Note: A&P Assessment and Plan (1) UTI (urinary tract infection): Qualifiers: Hematuria presence: with hematuria Urinary tract infection type: acute cystitis Qualified Code(s): N30.01 - Acute cystitis with hematuria Code(s): N39.0 - Urinary tract infection, site not specified Status: Acute Assessment and Plan: Acute cystitis following recent cystoscopy with transurethral resection of urothelial carcinoma Discussed Rocephin Reviewed urine culture Started on vancomycin (2) Bladder cancer: Qualifiers: Bladder location: unspecified site Qualified Code(s): C67.9 - Malignant neoplasm of bladder, unspecified Code(s): C67.9 - Malignant neoplasm of bladder, unspecified Status: Acute Assessment and Plan: as above (3) Type 2 diabetes mellitus with hyperglycemia: Qualifiers: Diabetes mellitus penitentiary insulin use: without penitentiary use Qualified Code(s): E11.65 - Type 2 diabetes mellitus with hyperglycemia Code(s): E11.65 - Type 2 diabetes mellitus with hyperglycemia Status: Chronic Assessment and Plan: SSI hypoglycemia protocol (4) Essential hypertension: Code(s): I10 - Essential (primary) hypertension Status: Chronic Assessment and Plan: hold antihypertensive medications due to low blood pressure (5) Pyoderma gangrenosum: Code(s): L88 - Pyoderma gangrenosum Status: Acute Assessment and Plan: continue wound care currently patient has in perirectal area and left inguinal area (6) Bacteremia: Code(s): R78.81 - Bacteremia Status: Acute Assessment and Plan: Source possibly UTI Blood culture from 0 6/0 4 shows Staph aureus Underwent YOLANDE no evidence of infective endocarditis, although tricuspid valve and pulmonary valves were not well visualized. 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 During the course of hospitalization patient blood culture was positive for Staph aureus. Underwent OYLANDE no evidence of infective endocarditis, although tricuspid valve and pulmonary valves were not well visualized. Patient needs to complete vancomycin for 6 weeks. Patient was evaluated by Urology no acute intervention . Consulted surgery for SBO vs Illeus. 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 During the course of hospitalization patient blood culture was positive for Staph aureus. Underwent YOLANDE no evidence of infective endocarditis, although tricuspid valve and pulmonary valves were not well visualized. Patient needs to complete vancomycin for 6 weeks. Patient was evaluated by Urology no acute intervention . Consulted surgery for SBO vs Illeus. Review of Systems Review of Systems: Unobtainable due to patient's history of dementia. Exam Narrative: Weight 89.1 kg BMI 26.6 Const: Other: Acutely ill-appearing, elderly, obese HENMT: Other: Mucous membranes are dry, no oral pharyngeal erythema, crowded posterior orophar ynx with class 3 ASA Eyes: Other: Pupils are equal and reactive, bilateral lens implants noted, no scleral icterus Neck: Other: No JVD, large neck circumference Resp: Other: Clear to auscultation bilaterally anterior velazquez, no increased work of breathing Cardio: Other: Regular rate, regular rhythm, 2/6 systolic murmur, no JVD GI: Other: Obese, soft, tender in suprapubic region, normoactive bowel sounds : Other: Uncircumcised male, incontinent of urine, large ulcer in the left groin please see nursing documentation for size and imaging Skin: Other: Large ulcer in the left groin with yellow base, no overt drainage, appearance consistent with patient's history of pyoderma gangrenosum, sacral wounds as well Neuro: Other: Alert oriented to person, place and situation confused as to the month in year, speech is clear patient is only answering direct questions, no facial asymmetry Extrem: Other: 5/5 barrel cap setter strength bilaterally, no clubbi ng, cyanosis or edema Psych: Other: Flat affect, cooperative Objective Data Vital Signs Vital Signs: Vital Signs - 24 hr 12/13/24 13:00 12/13/24 13:15 12/13/24 13:30 Temperature Pulse Rate 86 84 86 Respiratory Rate 12 10 L 15 Blood Pressure 106/62 101/65 118/67 Pulse Oximetry 100 97 97 Oxygen Delivery High Flow Nasal Cannula Room Air Room Air Oxygen Flow Rate 3 Fraction of Inspired Oxygen 12/13/24 14:00 12/13/24 20:21 12/13/24 20:32 Temperature 97.9 F 96.4 F L Pulse Rate 90 82 94 Respiratory Rate 18 16 20 Blood Pressure 117/65 104/56 L Pulse Oximetry 97 98 95 Oxygen Delivery Room Air Oxygen Flow Rate Fraction of Inspired Oxygen 21 12/14/24 05:54 Temperature 97.2 F L Pulse Rate 98 Respiratory Rate 17 Blood Pressure 146/74 H Pulse Oximetry 98 Oxygen Delivery Oxygen Flow Rate Fraction of Inspired Oxygen Intake/Output Intake/Output: Intake & Output 12/11/24 12/12/24 12/13/24 12/14/24 23:59 23:59 23:59 23:59 Intake Total 1078 910 200 Output Total 1400 2500 1450 Balance -322 -6450 -1255 Meds/Results Medications: Active Medications Generic Name Dose Route Start Last Admin Trade Name Freq PRN Reason Stop Dose Admin Acetaminophen 650 mg 12/09/24 13:22 12/11/24 09:04 Acetaminophen 325 Mg Tablet PO 650 mg Q4H PRN Administration Mild Pain (1-3) or Fever Hydrocodone Bitart/Acetaminophen 1 tab 12/11/24 11:08 12/14/24 08:11 Hydrocodone/Acetaminophen (*Crx) 5-325 Mg Tablet PO 1 tab Q4H PRN Administration Pain Rated 4-6 Aspirin 81 mg 12/10/24 09:00 12/14/24 08:11 Aspirin 81 Mg Enteric Tablet PO 81 mg DAILY NEHEMIAH Administration Bacitracin 1 applic 12/10/24 09:00 12/14/24 08:13 Bacitracin Ointment 15 Gm Tube TOPICAL 1 applic BID NEHEMIAH Administration Dextrose 12.5 gm 12/09/24 16:16 Dextrose 50% 25 Gm/50 Ml Syringe IV PUSH PRN PRN Hypoglycemia Protocol Dibucaine 1 applic 12/09/24 19:26 12/13/24 18:35 Dibucaine 1% Ointment 30 Gm Tube TOPICAL 1 applic QID PRN Administration Pain of groin ulcer Donepezil HCl 5 mg 12/09/24 21:00 12/13/24 21:03 Donepezil Hcl 5 Mg Tablet PO 5 mg QHS NEHEMIAH Administration Doxazosin Mesylate 2 mg 12/09/24 21:00 12/13/24 22:46 Doxazosin Mesylate 2 Mg Tablet BY MOUTH Not Given [facility] Dutasteride 0.5 mg 12/10/24 09:00 12/14/24 08:10 Dutasteride 0.5 Mg Capsule PO 0.5 mg DAILY NEHEMIAH Administration Fluconazole 200 mg 12/12/24 09:00 12/14/24 08:11 Fluconazole 100 Mg Tablet PO 12/22/24 09:01 200 mg QAM NEHEMIAH Administration Fluticasone Propionate 1 spray 12/11/24 09:00 12/14/24 08:12 Fluticasone Propionate 0.05% Na Spr 16 Gm Btl (*Bkc) XX 1 spray DAILY NEHEMIAH Administration Glimepiride 1 mg 12/10/24 09:00 12/10/24 10:30 Glimepiride 1 Mg Tablet PO 1 mg QAM NEHEMIAH Administration Glucagon 1 mg 12/09/24 16:16 Glucagon For Inj 1 Mg Vial IM PRN PRN Hypoglycemia Protocol Glucose 15 gm 12/09/24 16:16 Glucose Oral Gel 15 Gm Of Glucse In 37.5 Gm Tube PO PRN PRN Hypoglycemia Protocol Dextrose 1,000 mls @ 100 mls/hr 12/09/24 16:16 Dextrose 5% 1,000 Ml IVPB PRN PRN Hypoglycemia Protocol Vancomycin HCl 1,500 mg in 500 mls @ 250 mls/hr 12/13/24 16:00 12/13/24 17:43 Vancomycin 1,500 Mg/Ns 500 Ml IVPB 250 mls/hr Q24H NEHEMIAH Administration Insulin Aspart 1 - 2 units 12/09/24 21:00 12/13/24 21:03 Insulin Aspart (*Bkc) 100 Units/Ml SUB-Q 1 units HS NEHEMIAH Administration Protocol Insulin Aspart 2 - 5 units 12/09/24 17:00 12/14/24 08:14 Insulin Aspart (*Bkc) 100 Units/Ml SUB-Q 2 units TID[facility] Administration Protocol Levothyroxine Sodium 75 mcg 12/10/24 06:30 12/14/24 06:05 Levothyroxine Sodium 75 Mcg Tablet PO 75 mcg DAILY@0630 NEHEMIAH Administration Meloxicam 15 mg 12/10/24 09:00 12/14/24 08:10 Meloxicam 7.5 Mg Tablet PO 07/04/25 08:59 15 mg DAILY NEHEMIAH Administration Metformin HCl 2,000 mg 12/10/24 09:00 12/10/24 10:28 Metformin Hcl Xr 500 Mg Tab.Sr.24h BY MOUTH 2,000 mg DAILY NEHEMIAH Administration Metoprolol Succinate 50 mg 12/10/24 09:00 12/10/24 10:28 Metoprolol Succinate Ext Rel 50 Mg Tabcr PO 50 mg DAILY NEHEMIAH Administration Miconazole Nitrate 1 applic 12/10/24 09:00 12/14/24 08:13 Miconazole Nitrate 2% Cream 30 Gm Tube TOPICAL 1 applic BID NEHEMIAH Administration Morphine Sulfate 2 mg 12/09/24 13:22 12/14/24 00:05 Morphine Sulfate (*Crx) 2 Mg/Ml Inj IV PUSH 2 mg Q2H PRN Administration Pain Rated 7-10 Nitroglycerin 0.4 mg 12/09/24 18:28 Nitroglycerin Sl 0.4 Mg Tablet SUBLINGUAL Q5M PRN chest pain Ondansetron HCl 4 mg 12/09/24 13:22 12/09/24 19:49 Ondansetron Inj 4 Mg/2 Ml Vial IV PUSH 4 mg Q4H PRN Administration Nausea Perflutren Lipid Microsphere 0 ml 12/11/24 14:24 Perflutren Lipid Microspheres 1.5 Ml Vial Diluted To 10 Ml Total Volume IV PUSH 12/14/24 14:24 ONCE PRN adequate visualization Protocol Polyethylene Glycol 17 gm 12/13/24 18:00 12/14/24 08:09 Polyethylene Glycol 3350 17 Gm Powd.Pack PO 17 gm DAILY NEHEMIAH Administration Prednisone 40 mg 12/09/24 19:30 12/14/24 08:09 Prednisone 20 Mg Tablet PO 12/17/24 09:01 40 mg DAILY NEHEMIAH Administration Prednisone 20 mg 12/18/24 09:00 Prednisone 20 Mg Tablet PO 12/31/24 09:01 DAILY NEHEMIAH Rosuvastatin Calcium 40 mg 12/10/24 09:00 12/14/24 08:11 Rosuvastatin 20 Mg Tablet PO 40 mg DAILY NEHEMIAH Administration Triamcinolone Acetonide 1 applic 12/10/24 09:00 12/14/24 08:13 Triamcinolone Acet 0.1% Cream 15 Gm Tube TOPICAL 1 applic DAILY NEHEMIAH Administration Vitamin D 50 mcg 12/10/24 09:00 12/14/24 08:10 Cholecalciferol (Vitamin D3) 25 Mcg (1,000 Units) Tablet PO 50 mcg DAILY NEHEMIAH Administration Radiology Results: ITS Impressions Abdomen/Pelvis CT 12/09/24 10:25 IMPRESSION: 1. Abnormal bladder wall thickening with surrounding fatty infiltration and fluid, suspicious for acute cystitis. Clinically correlate. 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 Abdomen X-Ray 12/13/24 18:57 IMPRESSION: Small bowel ileus versus obstruction. Possible fecal impaction. Labs Labs: Laboratory Results - last 24 hr 12/13/24 12/13/24 12/13/24 11:42 14:51 16:47 WBC RBC Hgb Hct MCV MCH MCHC RDW Plt Count MPV Sodium Potassium Chloride Carbon Dioxide Anion Gap BUN Creatinine Estim Creat Clear Calc Estimated GFR Glucose POC Capillary Glucose 223 H 209 H Calcium Total Bilirubin AST ALT Alkaline Phosphatase Total Protein Albumin Vancomycin Trough 10.3 12/13/24 12/14/24 12/14/24 20:38 05:02 07:46 WBC 22.0 H RBC 4.06 L Hgb 11.3 L Hct 35.7 L MCV 87.9 MCH 27.8 MCHC 31.7 L RDW 14.9 H Plt Count 280 MPV 9.9 Sodium 137 Potassium 3.7 Chloride 109 H Carbon Dioxide 17 L Anion Gap 11 BUN 23 H Creatinine 0.99 Estim Creat Clear Calc 56 Estimated GFR > 60 Glucose 211 H POC Capillary Glucose 261 H 203 H Calcium 8.7 Total Bilirubin 0.5 AST 20 ALT 30 Alkaline Phosphatase 103 Total Protein 5.7 L Albumin 2.7 L Vancomycin Trough Quality VTE Prophylaxis VTE prophylaxis: mechanical ordered (SCDs) Hospitalist [facility] Advance Care Plan I have confirmed that the patient's Advanced Care Plan is present, code status is documented, or surrogate decision maker is listed in patient medical record.: Yes Medication Reconciliation I have utilized all available resources to obtain, update and review the patients current medications (includes all prescriptions, OTC, herbals, cannabis, and nutritional supplements).: Yes
[2024-12-14 11:35] LABS: Glucose Point of Care 249 mg/dl (65-105)
--- NOTE | 2024-12-14 11:37 | PM.CNGS ---
Assessment and Plan Assessment and plan (1) Ileus due to infection: Code(s): K56.7 - Ileus, unspecified; B99.9 - Unspecified infectious disease Status: Acute Assessment and Plan: No evidence of small-bowel obstruction on imaging, likely ileus secondary to infection, UTI/bacteremia, will get GI consultation, bowel regimen, may benefit from decompression (2) UTI (urinary tract infection): Qualifiers: Urinary tract infection type: acute cystitis Hematuria presence: with hematuria Qualified Code(s): N30.01 - Acute cystitis with hematuria Code(s): N39.0 - Urinary tract infection, site not specified Status: Acute Assessment and Plan: continue antibiotics as directed by cultures History of Present Illness Consult details Consult date: 12/14/24 Reason for consult: abdominal pain Requesting physician: Luis Francois MD Narrative: The patient is an 84-year-old male with multiple medical issues presenting to the hospital complaining of abdominal pain, generalized malaise, extreme weakness. The patient has recently diagnosed bladder cancer and UTI, bacteremia. The patient reports he has limited bowel function over the last couple of weeks. He reports intermittent diarrhea and some flatus. He reports poor appetite and bloating and nausea. 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 The patient's was told that he no longer needed CPAP Surgical History Surgical History History of colon surgery Cholesteatoma of attic of left ear History of coronary artery stent placement (~2014) X2 or 3 History of skin graft With skin flap History of biopsy Incisional biopsies nonhealing wound buttocks 02/02/2022 History of incision and drainage i&d pilonidal cyst 09/06/21 Hx of CABG (~2003) 2 vessel MASSEY to LAD saphenous vein graft to obtuse marginal Family History Family History Sibling Carcinoma of colon Family history of diabetes mellitus in first degree relative Family history of coronary artery disease Family history of malignant neoplasm of breast in first degree relative Father Family history of coronary artery disease Mother , pneumonia Pneumonia Other Diabetes mellitus Family history of arthritis Family history of congenital heart disease Family history of heart disease in male family member before age 55 Family history of malignant neoplasm Social History Social History Social History: The patient lives with his of over 40 years. He has 2 biologic children and 1 stepchild. 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 He has a distant history of smoking 20 pack per year. He quit smoking in the in then chewed tobacco for another 10 years and quit in 1991. He used to drink a few alcoholic beverages a month but only rarely drinks alcohol now. Code status: DNR/DNI Healthcare power of district attorney: Smoking packs per day: 2.5 Smoking cigarettes per day: 50.0 Years smoked: 10 Smoking pack-years: 25.00 Smoking status: Former smoker Second hand tobacco smoke exposure: Yes Alcohol intake: current Drinks per week: 1 Alcohol use details: socially Substance use: never Substance use type: does not use Do You Feel Safe in your Home?: Yes Lack of Transportation: No Lack of Food: Never True Current Housing: I Have Housing Concerned About Future Housing: No Difficulty Paying Gas/Electric Bills: No Difficulty Paying for Meds: No Currently Unemployed: No Education: Master's Degree or Higher Difficulty w/ Childcare or Family Care: No Living arrangements: with family Additional living arrangements comments: lives with Occupation/Education: retired 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 Gender identity (if verbalized by the patient): Male Spiritual care concerns: No Meds Home Medications and Allergies Home Medications ?Medication ?Instructions ?Recorded ?Confirmed ?Type nitroglycerin 0.4 mg sublingual 0.4 mg sublingual Q5M PRN chest 01/16/23 12/09/24 Rx tablet pain #25 tabs nystatin 100,000 unit/gram topical 1 applic topical BID #30 grams 02/29/24 12/09/24 Rx cream nystatin 100,000 unit/gram topical 1 applic topical BID #30 grams 02/29/24 12/09/24 Rx powder donepezil 5 mg tablet (Aricept) 5 mg PO QHS #30 tabs 05/29/24 12/09/24 Rx amlodipine 5 mg tablet 5 mg PO DAILY #90 tabs 07/31/24 12/09/24 Rx metoprolol succinate 50 mg 50 mg PO DAILY #90 tabs 07/31/24 12/09/24 Rx tablet,extended release 24 hr aspirin 81 mg tablet,delayed 81 mg PO DAILY 08/06/24 12/09/24 History release (Adult Low Dose Aspirin) doxazosin 2 mg tablet See Rx Instructions .Route 08/17/24 12/09/24 Rx .COMPLEX #90 tabs bacitracin 500 unit/gram topical 1 applic topical BID 08/21/24 12/09/24 History ointment dibucaine 1 % topical ointment 1 applic topical QID PRN Pain of 08/21/24 12/09/24 History groin ulcer triamcinolone acetonide 0.1 % 1 applic topical DAILY 08/21/24 12/09/24 History topical cream empagliflozin 25 mg tablet 25 mg PO QAM #90 tabs 09/12/24 12/09/24 Rx (Jardiance) glimepiride 1 mg tablet 1 mg PO QAM #90 tabs 09/27/24 12/09/24 Rx metformin 500 mg tablet,extended See Rx Instructions .Route 09/27/24 12/09/24 Rx release 24 hr .COMPLEX #360 tabs rosuvastatin 40 mg tablet 40 mg PO DAILY #90 tabs 09/27/24 12/09/24 Rx meloxicam 15 mg tablet See Rx Instructions .Route 10/17/24 12/09/24 Rx .COMPLEX #90 tabs dutasteride 0.5 mg capsule 0.5 mg PO DAILY #90 caps 11/08/24 12/09/24 Rx levothyroxine 75 mcg tablet 75 mcg PO DAILY #90 tabs 11/10/24 12/09/24 Rx cholecalciferol (vitamin D3) 50 2,000 unit PO DAILY 12/09/24 12/09/24 History mcg (2,000 unit) capsule prednisone 20 mg tablet 40 mg PO DAILY 12/09/24 12/09/24 History alendronate 70 mg tablet 70 mg PO WEEKLY 12/10/24 12/10/24 History Allergies Allergy/AdvReac Type Severity Reaction Status Date / Time finasteride Allergy Intermediate Hives Verified 08/21/24 07:58 JOSHUA Inhibitors Allergy Unknown Cough Verified 08/21/24 07:58 ARB-Angiotensin Receptor Allergy Unknown Cough Verified 08/21/24 07:58 Antagonist lisinopril Allergy Unknown Cough Verified 08/21/24 07:58 Vital Signs Vital Signs - 24 hr 12/13/24 13:00 12/13/24 13:15 12/13/24 13:30 Temperature Pulse Rate 86 84 86 Respiratory Rate 12 10 L 15 Blood Pressure 106/62 101/65 118/67 Pulse Oximetry 100 97 97 Oxygen Delivery High Flow Nasal Cannula Room Air Room Air Oxygen Flow Rate 3 Fraction of Inspired Oxygen 12/13/24 14:00 12/13/24 20:21 12/13/24 20:32 Temperature 36.6 C 35.8 C L Pulse Rate 90 82 94 Respiratory Rate 18 16 20 Blood Pressure 117/65 104/56 L Pulse Oximetry 97 98 95 Oxygen Delivery Room Air Oxygen Flow Rate Fraction of Inspired Oxygen 21 12/14/24 05:54 Temperature 36.2 C L Pulse Rate 98 Respiratory Rate 17 Blood Pressure 146/74 H Pulse Oximetry 98 Oxygen Delivery Oxygen Flow Rate Fraction of Inspired Oxygen Exam Const: General: cooperative, no acute distress, ill appearing and uncomfortable HENMT: Head: normal to inspection, normocephalic and atraumatic Eyes: General: appearance normal, both eyes and all related structures Neck: Neck: normal visual inspection, full ROM and no lymphadenopathy Resp: Auscultation: clear to auscultation bilaterally Cardio: Rate: regular rate Rhythm: regular rhythm GI: Inspection: normal to inspection and distended GI Palp: No abdominal tenderness, Yes Soft to palpation, No Tenderness to palpation present (GI), No Guarding due to palpation present (GI) and No Rigid due to palpation Skin: General skin exam: normal color and no rashes or lesions noted Neuro: General: patient oriented x3 and CN's II-XI intact bilaterally Extrem: General: normal to inspection and full ROM Results Labs 12/14/24 05:02 12/14/24 05:02 Labs: Abnormal lab results 12/13/24 12/13/24 12/13/24 Range/Units 11:42 16:47 20:38 WBC (4.5-10.0) K/mm3 RBC (4.6-6.20) M/mm3 Hgb (14.0-18.0) g/dL Hct (42.0-52.0) % MCHC (32-36) g/dl RDW (11.5-14.5) % Chloride (98-107) mmol/L Carbon Dioxide (22-30) mmol/L BUN (9-20) mg/dL Glucose (65-110) mg/dL POC Capillary Glucose 223 H 209 H 261 H (65-105) mg/dl Total Protein (6.3-8.2) g/dL Albumin (3.5-5.1) g/dL 12/14/24 12/14/24 12/14/24 Range/Units 05:02 07:46 11:33 WBC 22.0 H (4.5-10.0) K/mm3 RBC 4.06 L (4.6-6.20) M/mm3 Hgb 11.3 L (14.0-18.0) g/dL Hct 35.7 L (42.0-52.0) % MCHC 31.7 L (32-36) g/dl RDW 14.9 H (11.5-14.5) % Chloride 109 H (98-107) mmol/L Carbon Dioxide 17 L (22-30) mmol/L BUN 23 H (9-20) mg/dL Glucose 211 H (65-110) mg/dL POC Capillary Glucose 203 H 249 H (65-105) mg/dl Total Protein 5.7 L (6.3-8.2) g/dL Albumin 2.7 L (3.5-5.1) g/dL Diabetes panel 12/14/24 Range/Units 05:02 Sodium 137 (137-145) mmol/L Potassium 3.7 (3.4-5.0) mmol/L Chloride 109 H (98-107) mmol/L Carbon Dioxide 17 L (22-30) mmol/L BUN 23 H (9-20) mg/dL Creatinine 0.99 (0.7-1.3) mg/dL Glucose 211 H (65-110) mg/dL Calcium 8.7 (8.4-10.2) mg/dL AST 20 (17-59) U/L ALT 30 (6-50) U/L Alkaline Phosphatase 103 (38-126) U/L Total Protein 5.7 L (6.3-8.2) g/dL Albumin 2.7 L (3.5-5.1) g/dL Calcium panel 12/14/24 Range/Units 05:02 Calcium 8.7 (8.4-10.2) mg/dL Albumin 2.7 L (3.5-5.1) g/dL Pituitary panel 12/14/24 Range/Units 05:02 Sodium 137 (137-145) mmol/L Potassium 3.7 (3.4-5.0) mmol/L Chloride 109 H (98-107) mmol/L Carbon Dioxide 17 L (22-30) mmol/L BUN 23 H (9-20) mg/dL Creatinine 0.99 (0.7-1.3) mg/dL Glucose 211 H (65-110) mg/dL Calcium 8.7 (8.4-10.2) mg/dL Adrenal panel 12/14/24 Range/Units 05:02 Sodium 137 (137-145) mmol/L Potassium 3.7 (3.4-5.0) mmol/L Chloride 109 H (98-107) mmol/L Carbon Dioxide 17 L (22-30) mmol/L BUN 23 H (9-20) mg/dL Creatinine 0.99 (0.7-1.3) mg/dL Glucose 211 H (65-110) mg/dL Calcium 8.7 (8.4-10.2) mg/dL Total Bilirubin 0.5 (0.2-1.3) mg/dL AST 20 (17-59) U/L ALT 30 (6-50) U/L Alkaline Phosphatase 103 (38-126) U/L Total Protein 5.7 L (6.3-8.2) g/dL Albumin 2.7 L (3.5-5.1) g/dL All other labs normal. Imaging Abdominal x-ray: report reviewed and image reviewed Abdomen CT scan report/results: report reviewed and image reviewed
--- NOTE | 2024-12-14 12:26 | P.CONGI_ITS ---
Assessment and Plan Assessment and plan (1) Ileus due to infection: Code(s): K56.7 - Ileus, unspecified; B99.9 - Unspecified infectious disease Status: Acute Assessment and Plan: the patient presents with [id number] abdominal distension and, more notably, localized tenderness to palpation in the left lower quadrant. Differential diagnosis includes acute diverticulitis or a complication related to his recent urological intervention. To further investigate, we'll obtain a CT scan with contrast for comparison with his admission imaging. We also suggest increasing his MiraLAX dosage to address the fecal impaction identified on plain films. GI Consult Note Consult date/time: 12/14/24 12:26 Reason for consult: Abdominal distension-abdominal pain HPI: Jim Moralez is an 84-year-old male with a significant medical history including dementia, coronary artery disease, diabetes, and hypothyroidism. He was recently diagnosed with bladder cancer and underwent a resection at [place] on November 27. He was admitted on December 09, 2024, for abdominal pain and is currently being treated for Staphylococcus aureus bacteremia, confirmed by blood cultures. A YOLANDE was negative for endocarditis. The reason for this consultation is persistent abdominal pain localized to the left lower quadrant along with abdominal distension. A plain film performed today showed fecal impaction and possible small bowel ileus. General surgery evaluated the patient, they did not consider a mechanical obstruction. a CT scan done 5 days ago showed abnormal bladder thickening, consistent with recent procedure, and multiple pancreatic cysts that have been studied in the past with MRI. His laboratory data from today shows a WBC of 22, hemoglobin 11.3, sodium 137, and creatinine 0.99. 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 The patient's was told that he no longer needed CPAP Surgical History Surgical History History of colon surgery Cholesteatoma of attic of left ear History of coronary artery stent placement (~2014) X2 or 3 History of skin graft With skin flap History of biopsy Incisional biopsies nonhealing wound buttocks 02/02/2022 History of incision and drainage i&d pilonidal cyst 09/06/21 Hx of CABG (~2003) 2 vessel MASSEY to LAD saphenous vein graft to obtuse marginal Family History Family History Sibling Carcinoma of colon Family history of diabetes mellitus in first degree relative Family history of coronary artery disease Family history of malignant neoplasm of breast in first degree relative Father Family history of coronary artery disease Mother , pneumonia Pneumonia Other Diabetes mellitus Family history of arthritis Family history of congenital heart disease Family history of heart disease in male family member before age 55 Family history of malignant neoplasm Social History Social History Social History: The patient lives with his of over 40 years. He has 2 biologic children and 1 stepchild. 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 He has a distant history of smoking 20 pack per year. He quit smoking in the in then chewed tobacco for another 10 years and quit in 1991. He used to drink a few alcoholic beverages a month but only rarely drinks alcohol now. Code status: DNR/DNI Healthcare power of telemarketer: Smoking packs per day: 2.5 Smoking cigarettes per day: 50.0 Years smoked: 10 Smoking pack-years: 25.00 Smoking status: Former smoker Second hand tobacco smoke exposure: Yes Alcohol intake: current Drinks per week: 1 Alcohol use details: socially Substance use: never Substance use type: does not use Do You Feel Safe in your Home?: Yes Lack of Transportation: No Lack of Food: Never True Current Housing: I Have Housing Concerned About Future Housing: No Difficulty Paying Gas/Electric Bills: No Difficulty Paying for Meds: No Currently Unemployed: No Education: Master's Degree or Higher Difficulty w/ Childcare or Family Care: No Living arrangements: with family Additional living arrangements comments: lives with Occupation/Education: retired 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 Gender identity (if verbalized by the patient): Male Spiritual care concerns: No Meds Home Medications and Allergies Home Medications ?Medication ?Instructions ?Recorded ?Confirmed ?Type nitroglycerin 0.4 mg sublingual 0.4 mg sublingual Q5M PRN chest 01/16/23 12/09/24 Rx tablet pain #25 tabs nystatin 100,000 unit/gram topical 1 applic topical BID #30 grams 02/29/24 12/09/24 Rx cream nystatin 100,000 unit/gram topical 1 applic topical BID #30 grams 02/29/24 12/09/24 Rx powder donepezil 5 mg tablet (Aricept) 5 mg PO QHS #30 tabs 05/29/24 12/09/24 Rx amlodipine 5 mg tablet 5 mg PO DAILY #90 tabs 07/31/24 12/09/24 Rx metoprolol succinate 50 mg 50 mg PO DAILY #90 tabs 07/31/24 12/09/24 Rx tablet,extended release 24 hr aspirin 81 mg tablet,delayed 81 mg PO DAILY 08/06/24 12/09/24 History release (Adult Low Dose Aspirin) doxazosin 2 mg tablet See Rx Instructions .Route 08/17/24 12/09/24 Rx .COMPLEX #90 tabs bacitracin 500 unit/gram topical 1 applic topical BID 08/21/24 12/09/24 History ointment dibucaine 1 % topical ointment 1 applic topical QID PRN Pain of 08/21/24 12/09/24 History groin ulcer triamcinolone acetonide 0.1 % 1 applic topical DAILY 08/21/24 12/09/24 History topical cream empagliflozin 25 mg tablet 25 mg PO QAM #90 tabs 09/12/24 12/09/24 Rx (Jardiance) glimepiride 1 mg tablet 1 mg PO QAM #90 tabs 09/27/24 12/09/24 Rx metformin 500 mg tablet,extended See Rx Instructions .Route 09/27/24 12/09/24 Rx release 24 hr .COMPLEX #360 tabs rosuvastatin 40 mg tablet 40 mg PO DAILY #90 tabs 09/27/24 12/09/24 Rx meloxicam 15 mg tablet See Rx Instructions .Route 10/17/24 12/09/24 Rx .COMPLEX #90 tabs dutasteride 0.5 mg capsule 0.5 mg PO DAILY #90 caps 11/08/24 12/09/24 Rx levothyroxine 75 mcg tablet 75 mcg PO DAILY #90 tabs 11/10/24 12/09/24 Rx cholecalciferol (vitamin D3) 50 2,000 unit PO DAILY 12/09/24 12/09/24 History mcg (2,000 unit) capsule prednisone 20 mg tablet 40 mg PO DAILY 12/09/24 12/09/24 History alendronate 70 mg tablet 70 mg PO WEEKLY 12/10/24 12/10/24 History Allergies Allergy/AdvReac Type Severity Reaction Status Date / Time finasteride Allergy Intermediate Hives Verified 08/21/24 07:58 JOSHUA Inhibitors Allergy Unknown Cough Verified 08/21/24 07:58 ARB-Angiotensin Receptor Allergy Unknown Cough Verified 08/21/24 07:58 Antagonist lisinopril Allergy Unknown Cough Verified 08/21/24 07:58 Vital Signs Vital Signs - 24 hr 12/13/24 13:00 12/13/24 13:15 12/13/24 13:30 Temperature Pulse Rate 86 84 86 Respiratory Rate 12 10 L 15 Blood Pressure 106/62 101/65 118/67 Pulse Oximetry 100 97 97 Oxygen Delivery High Flow Nasal Cannula Room Air Room Air Oxygen Flow Rate 3 Fraction of Inspired Oxygen 12/13/24 14:00 12/13/24 20:21 12/13/24 20:32 Temperature 97.9 F 96.4 F L Pulse Rate 90 82 94 Respiratory Rate 18 16 20 Blood Pressure 117/65 104/56 L Pulse Oximetry 97 98 95 Oxygen Delivery Room Air Oxygen Flow Rate Fraction of Inspired Oxygen 21 12/14/24 05:54 Temperature 97.2 F L Pulse Rate 98 Respiratory Rate 17 Blood Pressure 146/74 H Pulse Oximetry 98 Oxygen Delivery Oxygen Flow Rate Fraction of Inspired Oxygen Exam 2 Narrative: Abdomen: Soft, tympanitic, very tender in left lower quadrant, with rebound tenderness. Rest of the exam within normal limits. Results Labs 12/14/24 05:02 12/14/24 05:02 Labs: Short CBC 12/14/24 Range/Units 05:02 WBC 22.0 H (4.5-10.0) K/mm3 Hgb 11.3 L (14.0-18.0) g/dL Hct 35.7 L (42.0-52.0) % Plt Count 280 (150-375) k/mm3 [facility] 12/14/24 05:02 Sodium 137 Potassium 3.7 Chloride 109 H Carbon Dioxide 17 L BUN 23 H Creatinine 0.99 Glucose 211 H Calcium 8.7 Liver Function 12/14/24 Range/Units 05:02 Total Bilirubin 0.5 (0.2-1.3) mg/dL AST 20 (17-59) U/L ALT 30 (6-50) U/L Alkaline Phosphatase 103 (38-126) U/L Albumin 2.7 L (3.5-5.1) g/dL
[2024-12-14 12:59] LABS: Basophils Absolute Auto 0.1 K/mm3 (0.0-0.1); Basophils Percent Auto 0.5 % (0.2-1.2); Hematocrit 35.1 % (42.0-52.0); Hemoglobin 11.4 g/dL (14.0-18.0); Immature Granulocyte Absolute 0.39 K/mm3 (0.00-0.031); Immature Granulocyte Percent A 1.6 % (0-0.5); Lymphocytes Percent Auto 1.7 % (18.3-44.2); Mean Corpuscular HGB Conc 32.5 g/dl (32-36); Mean Corpuscular Hemoglobin 28.2 pg (26-34); Mean Corpuscular Volume 86.9 fl (80-100); Mean Platelet Volume 9.6 fl (7.4-10.4); Monocytes Absolute Auto 0.4 K/mm3 (0.1-0.6); Monocytes Percent Auto 1.9 % (2.6-8.5); Neutrophils Absolute Auto 22.3 K/mm3 (1.3-6.7); Neutrophils Percent Auto 94.3 % (45.5-73.1); Platelet Count Result 262 k/mm3 (150-375); Red Blood Count 4.04 M/mm3 (4.6-6.20); White Blood Count 23.7 K/mm3 (4.5-10.0)
[2024-12-14 13:49] LABS: Platelet Estimate Adequate (Adequate)
[2024-12-14 13:50] LABS: Burr Cells 1+; Schistocytes None Seen
[2024-12-14 14:00] VITALS: BP 115/63; PULSE 80; RESP 16; TEMP 36.6; O2SAT 97
[2024-12-14] MEDS: VANCOMYCIN 1,500 MG/NS 500 ML 1,500 MG/500 ML BAG 250 MG IVPB (15:46)
[2024-12-14 16:53] LABS: Glucose Point of Care 296 mg/dl (65-105)
[2024-12-14 20:26] LABS: Glucose Point of Care 357 mg/dl (65-105)
[2024-12-14 20:38] VITALS: BP 157/64; PULSE 80; RESP 16; TEMP 35.8; O2SAT 97
[2024-12-14] MEDS: DOXAZOSIN MESYLATE 2 MG TABLET BY MOUTH (21:04)
[2024-12-14] MEDS: DONEPEZIL HCL 5 MG TABLET PO (21:05)
[2024-12-15] MEDS: MORPHINE SULFATE (*CRX) 2 MG/ML INJ IV PUSH ×2 (01:35→23:05)
[2024-12-15] MEDS: polyethylene glycoL 3350 17 GM POWD.PACK PO ×5 (05:38→23:08)
[2024-12-15] MEDS: LEVOTHYROXINE SODIUM 75 MCG TABLET PO (05:38)
[2024-12-15] MEDS: HYDROcodone/acetaminophen (*CRX) 5-325 MG TABLET 1 TAB PO ×4 (05:44→20:05)
[2024-12-15 06:00] VITALS: BP 147/68; PULSE 75; RESP 17; TEMP 36.3; O2SAT 97
[2024-12-15 06:02] LABS: Basophils Absolute Auto 0.1 K/mm3 (0.0-0.1); Basophils Percent Auto 0.4 % (0.2-1.2); Eosinophils Percent Auto 0.1 % (0-4.4); Hematocrit 36.8 % (42.0-52.0); Hemoglobin 11.4 g/dL (14.0-18.0); Immature Granulocyte Absolute 0.44 K/mm3 (0.00-0.031); Immature Granulocyte Percent A 2.1 % (0-0.5); Lymphocytes Percent Auto 3.8 % (18.3-44.2); Mean Corpuscular Hemoglobin 28.4 pg (26-34); Mean Corpuscular Volume 91.8 fl (80-100); Mean Platelet Volume 9.9 fl (7.4-10.4); Monocytes Absolute Auto 0.5 K/mm3 (0.1-0.6); Monocytes Percent Auto 2.3 % (2.6-8.5); Neutrophils Absolute Auto 19.1 K/mm3 (1.3-6.7); Neutrophils Percent Auto 91.3 % (45.5-73.1); Platelet Count Result 252 k/mm3 (150-375); Red Blood Count 4.01 M/mm3 (4.6-6.20); Red Cell Distribution Width 14.9 % (11.5-14.5)
[2024-12-15 06:19] LABS: Alanine Aminotransferase 25 U/L (6-50); Albumin Level 2.7 g/dL (3.5-5.1); Alkaline Phosphatase 108 U/L (38-126); Anion Gap 9 mmol/L (4-12); Aspartate Amino Transferase 18 U/L (17-59); Bilirubin,Total 0.5 mg/dL (0.2-1.3); Blood Urea Nitrogen 25 mg/dL (9-20); Calcium 8.4 mg/dL (8.4-10.2); Carbon Dioxide 17 mmol/L (22-30); Chloride 107 mmol/L (98-107); Estimated CRCL calculation 52 ml/min; Estimated Glomerular Filt Rate > 60; Glucose 270 mg/dL (65-110); Potassium 4.2 mmol/L (3.4-5.0); Sodium 133 mmol/L (137-145); Total Protein 5.8 g/dL (6.3-8.2)
[2024-12-15 06:58] LABS: Burr Cells 1+; Platelet Estimate Adequate (Adequate); Schistocytes None Seen
[2024-12-15 07:00] LABS: Anisocytosis 1+; Poikilocytosis 1+
[2024-12-15 07:46] LABS: Glucose Point of Care 240 mg/dl (65-105)
[2024-12-15] MEDS: INSULIN ASPART (*BKC) 100 UNITS/ML SUB-Q ×5 (08:25→20:08)
[2024-12-15] MEDS: CHOLECALCIFEROL (VITAMIN D3) 25 MCG (1,000 UNITS) TABLET 50 MCG PO (08:26)
[2024-12-15] MEDS: predniSONE 20 MG TABLET 40 MG PO (08:27)
[2024-12-15] MEDS: ROSUVASTATIN 20 MG TABLET 40 MG PO (08:27)
[2024-12-15] MEDS: FLUCONAZOLE 100 MG TABLET 200 MG PO (08:27)
[2024-12-15] MEDS: ASPIRIN 81 MG ENTERIC TABLET PO (08:27)
[2024-12-15] MEDS: DUTASTERIDE 0.5 MG CAPSULE PO (08:28)
[2024-12-15] MEDS: MELOXICAM 7.5 MG TABLET 15 MG PO (08:28)
[2024-12-15] MEDS: FLUTICASONE PROPIONATE 0.05% NA SPR 16 GM BTL (*BKC) 1 SPRAY XX (08:29)
[2024-12-15] MEDS: BACITRACIN OINTMENT 15 GM TUBE 1 APPLIC TOPICAL ×2 (08:29→17:03)
[2024-12-15] MEDS: TRIAMCINOLONE ACET 0.1% CREAM 15 GM TUBE 1 APPLIC TOPICAL (08:30)
[2024-12-15] MEDS: MICONAZOLE NITRATE 2% CREAM 30 GM TUBE 1 APPLIC TOPICAL ×2 (08:30→17:03)
[2024-12-15] MEDS: SACCHAROMYCES BOULARDII 250 MG CAPSULE PO ×3 (08:55→17:02)
[2024-12-15] MEDS: AMOXICILLIN/CLAVULANATE K 875-125 MG TAB 1 TABLET PO ×2 (08:55→20:20)
--- NOTE | 2024-12-15 11:08 | P.PNGI_ITS ---
Progress Note: A&P Assessment and Plan (1) Chronic idiopathic constipation: Code(s): K59.04 - Chronic idiopathic constipation Status: Acute (2) Abdominal pain: Qualifiers: Abdominal location: generalized Qualified Code(s): R10.84 - Generalized abdominal pain Code(s): R10.9 - Unspecified abdominal pain Status: Acute Assessment and Plan: Recent CT scan findings reveal worsening opacification and stranding in the fat of the anterior pelvis, a new development likely related to his recent surgery. This finding adequately explains his localized suprapubic and left lower quadrant pain, which has been clinically mimicking acute diverticulitis. Given this, Augmentin coverage is considered appropriate for targeted treatment. Clinically, there's no evidence of ileus at this time, as bowel sounds are normal and present. Therefore, the patient should be able to tolerate a normal diet, which may also help alleviate his constipation. He is also currently receiving intravenous vancomycin for a blood culture positive for Staphylococcus aureus. Subjective Date/time seen: 12/15/24 11:08 Interval history: Given the findings on CT scan from yesterday afternoon, the patient was started on Augmentin every 12 hours. He continues to have left lower quadrant discomfort this morning, no fever, the patient did not eat. Exam Narrative: Alert oriented x3. Abdomen: Bowel sounds present and normal throughout. drying machine tender on suprapubic and left lower quadrant to palpation with rebound tenderness. Rest of the examination within normal pulido Objective Data Vital Signs Vital Signs: Vital Signs - 24 hr 12/14/24 14:00 12/14/24 20:38 12/15/24 06:00 Temperature 97.9 F 96.4 F L 97.4 F L Pulse Rate 80 80 75 Respiratory Rate 16 16 17 Blood Pressure 115/63 157/64 H 147/68 H Pulse Oximetry 97 97 97 Intake/Output Intake/Output: Intake & Output 12/12/24 12/13/24 12/14/24 12/15/24 23:59 23:59 23:59 23:59 Intake Total 280 632 7425 480 Output Total 2500 1450 500 900 Balance -1590 -750 1160 -420 Meds/Results Medications: Active Medications Generic Name Dose Route Start Last Admin Trade Name Freq PRN Reason Stop Dose Admin Acetaminophen 650 mg 12/09/24 13:22 12/11/24 09:04 Acetaminophen 325 Mg Tablet PO 650 mg Q4H PRN Administration Mild Pain (1-3) or Fever Hydrocodone Bitart/Acetaminophen 1 tab 12/11/24 11:08 12/15/24 05:44 Hydrocodone/Acetaminophen (*Crx) 5-325 Mg Tablet PO 1 tab Q4H PRN Administration Pain Rated 4-6 Amoxicillin/Clavulanate Potassium 1 tablet 12/15/24 09:00 12/15/24 08:55 Amoxicillin/Clavulanate K 875-125 Mg Tab PO 12/20/24 08:59 1 tablet Q12HR [facility]HEMIAH Administration Aspirin 81 mg 12/10/24 09:00 12/15/24 08:27 Aspirin 81 Mg Enteric Tablet PO 81 mg DAILY [facility] Administration Bacitracin 1 applic 12/10/24 09:00 12/15/24 08:29 Bacitracin Ointment 15 Gm Tube TOPICAL 1 applic BID [facility]HEMIAH Administration Dextrose 12.5 gm 12/09/24 16:16 Dextrose 50% 25 Gm/50 Ml Syringe IV PUSH PRN PRN Hypoglycemia Protocol Dibucaine 1 applic 12/09/24 19:26 12/13/24 18:35 Dibucaine 1% Ointment 30 Gm Tube TOPICAL 1 applic QID PRN Administration Pain of groin ulcer Donepezil HCl 5 mg 12/09/24 21:00 12/14/24 21:05 Donepezil Hcl 5 Mg Tablet PO 5 mg QHS [facility]MIAH Administration Doxazosin Mesylate 2 mg 12/09/24 21:00 12/14/24 21:04 Doxazosin Mesylate 2 Mg Tablet BY MOUTH 2 mg HS [facility]MIAH Administration Dutasteride 0.5 mg 12/10/24 09:00 12/15/24 08:28 Dutasteride 0.5 Mg Capsule PO 0.5 mg DAILY [facility] Administration Fluconazole 200 mg 12/12/24 09:00 12/15/24 08:27 Fluconazole 100 Mg Tablet PO 12/22/24 09:01 200 mg QAM [facility]MIAH Administration Fluticasone Propionate 1 spray 12/11/24 09:00 12/15/24 08:29 Fluticasone Propionate 0.05% Na Spr 16 Gm Btl (*Bkc) XX 1 spray DAILY [facility] Administration Glimepiride 1 mg 12/10/24 09:00 12/10/24 10:30 Glimepiride 1 Mg Tablet PO 1 mg QAM [facility] Administration Glucagon 1 mg 12/09/24 16:16 Glucagon For Inj 1 Mg Vial IM PRN PRN Hypoglycemia Protocol Glucose 15 gm 12/09/24 16:16 Glucose Oral Gel 15 Gm Of Glucse In 37.5 Gm Tube PO PRN PRN Hypoglycemia Protocol Dextrose 1,000 mls @ 100 mls/hr 12/09/24 16:16 Dextrose 5% 1,000 Ml IVPB PRN PRN Hypoglycemia Protocol Vancomycin HCl 1,500 mg in 500 mls @ 250 mls/hr 12/13/24 16:00 12/14/24 17:46 Vancomycin 1,500 Mg/Ns 500 Ml IVPB 01/22/25 23:59 Infused Q24H [facility] Infusion Insulin Aspart 1 - 2 units 12/09/24 21:00 12/14/24 21:06 Insulin Aspart (*Bkc) 100 Units/Ml SUB-Q 2 units HS [facility] Administration Protocol Insulin Aspart 2 - 5 units 12/09/24 17:00 12/15/24 08:25 Insulin Aspart (*Bkc) 100 Units/Ml SUB-Q 2 units TIDWM [facility] Administration Protocol Levothyroxine Sodium 75 mcg 12/10/24 06:30 12/15/24 05:38 Levothyroxine Sodium 75 Mcg Tablet PO 75 mcg DAILY@0630 [facility] Administration Meloxicam 15 mg 12/10/24 09:00 12/15/24 08:28 Meloxicam 7.5 Mg Tablet PO 01/10/25 08:59 15 mg DAILY [facility] Administration Metformin HCl 2,000 mg 12/10/24 09:00 12/10/24 10:28 Metformin Hcl Xr 500 Mg Tab.Sr.24h BY MOUTH 2,000 mg DAILY [facility] Administration Metoprolol Succinate 50 mg 12/10/24 09:00 12/10/24 10:28 Metoprolol Succinate Ext Rel 50 Mg Tabcr PO 50 mg DAILY [facility] Administration Miconazole Nitrate 1 applic 12/10/24 09:00 12/15/24 08:30 Miconazole Nitrate 2% Cream 30 Gm Tube TOPICAL 1 applic BID [facility] Administration Morphine Sulfate 2 mg 12/09/24 13:22 12/15/24 01:35 Morphine Sulfate (*Crx) 2 Mg/Ml Inj IV PUSH 2 mg Q2H PRN Administration Pain Rated 7-10 Nitroglycerin 0.4 mg 12/09/24 18:28 Nitroglycerin Sl 0.4 Mg Tablet SUBLINGUAL Q5M PRN chest pain Ondansetron HCl 4 mg 12/09/24 13:22 12/09/24 19:49 Ondansetron Inj 4 Mg/2 Ml Vial IV PUSH 4 mg Q4H PRN Administration Nausea Polyethylene Glycol 17 gm 12/13/24 18:00 12/15/24 08:25 Polyethylene Glycol 3350 17 Gm Powd.Pack PO 17 gm DAILY [facility] Administration Polyethylene Glycol 17 gm 12/14/24 12:00 12/15/24 05:38 Polyethylene Glycol 3350 17 Gm Powd.Pack PO 17 gm Q6H [facility] Administration Prednisone 40 mg 12/09/24 19:30 12/15/24 08:27 Prednisone 20 Mg Tablet PO 12/17/24 09:01 40 mg DAILY [facility] Administration Prednisone 20 mg 12/18/24 09:00 Prednisone 20 Mg Tablet PO 12/31/24 09:01 DAILY [facility] Rosuvastatin Calcium 40 mg 12/10/24 09:00 12/15/24 08:27 Rosuvastatin 20 Mg Tablet PO 40 mg DAILY [facility] Administration Saccharomyces Boulardii 250 mg 12/15/24 09:00 12/15/24 08:55 Saccharomyces Boulardii 250 Mg Capsule PO 250 mg TID [facility]MIA[facility] Administration Triamcinolone Acetonide 1 applic 12/10/24 09:00 12/15/24 08:30 Triamcinolone Acet 0.1% Cream 15 Gm Tube TOPICAL 1 applic DAILY [facility] Administration Vitamin D 50 mcg 12/10/24 09:00 12/15/24 08:26 Cholecalciferol (Vitamin D3) 25 Mcg (1,000 Units) Tablet PO 50 mcg DAILY [facility] Administration Radiology Results: ITS Impressions Abdomen X-Ray 12/13/24 18:57 IMPRESSION: Small bowel ileus versus obstruction. Possible fecal impaction. Abdomen/Pelvis CT 12/14/24 13:19 IMPRESSION: 1. Residual small focus of gas within the bladder with decrease in the prior bladder wall thickening and surrounding inflammatory stranding consistent with resolving postoperative changes related to reported recent bladder cancer resection. 2. Mild bilateral hydronephrosis extending to the bladder which could be related to outlet obstruction, neurogenic bladder or potentially decreased bladder emptying as sequela of the recent surgery. 3. Worsening opacification/stranding in the fat in the anterior pelvis which could be related to the recent surgery but without evident abscess or potentially omental infarct. 4. Large ball of stool at rectum suspicious for constipation with fecal impaction. 5. Moderate-sized bilateral fat-containing inguinal hernias. 6. 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 This is new since study from 2007 and given the presence of a few scattered dystrophic calcifications could represent sequela of chronic pancreatitis. 7. New small left and very small right pleural effusions with some peripheral atelectasis at the left lower lobe and lingula. Labs Labs: Laboratory Results - last 24 hr 12/14/24 12/14/24 12/14/24 11:33 12:47 16:46 WBC 23.7 H RBC 4.04 L Hgb 11.4 L Hct 35.1 L MCV 86.9 MCH 28.2 MCHC 32.5 RDW 15.0 H Plt Count 262 MPV 9.6 Immature Gran % (Auto) 1.6 H Neut % (Auto) 94.3 H Lymph % (Auto) 1.7 L [place] % (Auto) 1.9 L Eos % (Auto) 0.0 Baso % (Auto) 0.5 Lymph # (Auto) 0.40 L [place] # (Auto) 0.4 Eos # (Auto) 0.0 Baso # (Auto) 0.1 Abs Immat Gran (auto) 0.39 H Absolute Neuts (auto) 22.3 H Absolute Nucleated RBC 0.000 Band Neutrophils % Not Reportable Nucleated RBC % 0.0 Platelet Estimate Adequate Poikilocytosis Anisocytosis [place] Cells 1+ Schistocytes None seen Sodium Potassium Chloride Carbon Dioxide Anion Gap BUN Creatinine Estim Creat Clear Calc Estimated GFR Glucose POC Capillary Glucose 249 H 296 H Calcium Total Bilirubin AST ALT Alkaline Phosphatase Total Protein Albumin 12/14/24 12/15/24 12/15/24 20:21 05:21 07:35 WBC 21.0 H RBC 4.01 L Hgb 11.4 L Hct 36.8 L MCV 91.8 D MCH 28.4 MCHC 31.0 L RDW 14.9 H Plt Count 252 MPV 9.9 Immature Gran % (Auto) 2.1 H Neut % (Auto) 91.3 H Lymph % (Auto) 3.8 L [place] % (Auto) 2.3 L Eos % (Auto) 0.1 Baso % (Auto) 0.4 Lymph # (Auto) 0.80 L [place] # (Auto) 0.5 Eos # (Auto) 0.0 Baso # (Auto) 0.1 Abs Immat Gran (auto) 0.44 H Absolute Neuts (auto) 19.1 H Absolute Nucleated RBC 0.000 Band Neutrophils % Not Reportable Nucleated RBC % 0.0 Platelet Estimate Adequate Poikilocytosis 1+ Anisocytosis 1+ [place] Cells 1+ Schistocytes None seen Sodium 133 L Potassium 4.2 Chloride 107 Carbon Dioxide 17 L Anion Gap 9 BUN 25 H Creatinine 1.07 Estim Creat Clear Calc 52 Estimated GFR > 60 Glucose 270 H POC Capillary Glucose 357 H 240 H Calcium 8.4 Total Bilirubin 0.5 AST 18 ALT 25 Alkaline Phosphatase 108 Total Protein 5.8 L Albumin 2.7 L
[2024-12-15 11:42] LABS: Glucose Point of Care 467 mg/dl (65-105)
--- NOTE | 2024-12-15 12:28 | PM.PNGS ---
Progress Note: A&P Assessment and Plan (1) Chronic idiopathic constipation: Code(s): K59.04 - Chronic idiopathic constipation Status: Acute Assessment and Plan: no mechanical obstruction, cont bowel regimen per GI (2) UTI (urinary tract infection): Qualifiers: Urinary tract infection type: acute cystitis Hematuria presence: with hematuria Qualified Code(s): N30.01 - Acute cystitis with hematuria Code(s): N39.0 - Urinary tract infection, site not specified Status: Acute Assessment and Plan: cont abx Subjective Subjective Date/Time Seen: 12/15/24 12:28 Interval history: still not feeling well, but pain improved Review of Systems Review of Systems: All systems reviewed & are unremarkable except as noted in HPI and below Exam Const: General: cooperative, ill appearing and uncomfortable Resp: Auscultation: clear to auscultation bilaterally Cardio: Rate: regular rate Rhythm: regular rhythm GI: Inspection: normal to inspection and distended GI Palp: Yes abdominal tenderness, Yes Soft to palpation, No Guarding due to palpation present (GI) and No Rigid due to palpation Objective Data Vital Signs Vital Signs: Vital Signs - 24 hr 12/14/24 14:00 12/14/24 20:38 12/15/24 06:00 Temperature 36.6 C 35.8 C L 36.3 C L Pulse Rate 80 80 75 Respiratory Rate 16 16 17 Blood Pressure 115/63 157/64 H 147/68 H Pulse Oximetry 97 97 97 Intake/Output Intake/Output: Intake & Output 12/12/24 12/13/24 12/14/24 12/15/24 23:59 23:59 23:59 23:59 Intake Total 346 731 1204 498 Output Total 4286 1450 500 900 Balance -1590 -750 1160 -402 Meds/Results Medications: Active Medications Generic Name Dose Route Start Last Admin Trade Name Freq PRN Reason Stop Dose Admin Acetaminophen 650 mg 12/09/24 13:22 12/11/24 09:04 Acetaminophen 325 Mg Tablet PO 650 mg Q4H PRN Administration Mild Pain (1-3) or Fever Hydrocodone Bitart/Acetaminophen 1 tab 12/11/24 11:08 12/15/24 11:44 Hydrocodone/Acetaminophen (*Crx) 5-325 Mg Tablet PO 1 tab Q4H PRN Administration Pain Rated 4-6 Amoxicillin/Clavulanate Potassium 1 tablet 12/15/24 09:00 12/15/24 08:55 Amoxicillin/Clavulanate K 875-125 Mg Tab PO 12/20/24 08:59 1 tablet Q12HR [facility]HEMIAH Administration Aspirin 81 mg 12/10/24 09:00 12/15/24 08:27 Aspirin 81 Mg Enteric Tablet PO 81 mg DAILY [facility]MIA[facility] Administration Bacitracin 1 applic 12/10/24 09:00 12/15/24 08:29 Bacitracin Ointment 15 Gm Tube TOPICAL 1 applic BID [facility]MIAH Administration Dextrose 12.5 gm 12/09/24 16:16 Dextrose 50% 25 Gm/50 Ml Syringe IV PUSH PRN PRN Hypoglycemia Protocol Dibucaine 1 applic 12/09/24 19:26 12/13/24 18:35 Dibucaine 1% Ointment 30 Gm Tube TOPICAL 1 applic QID PRN Administration Pain of groin ulcer Donepezil HCl 5 mg 12/09/24 21:00 12/14/24 21:05 Donepezil Hcl 5 Mg Tablet PO 5 mg QHS [facility]IA[facility] Administration Doxazosin Mesylate 2 mg 12/09/24 21:00 12/14/24 21:04 Doxazosin Mesylate 2 Mg Tablet BY MOUTH 2 mg HS [facility]HEMIAH Administration Dutasteride 0.5 mg 12/10/24 09:00 12/15/24 08:28 Dutasteride 0.5 Mg Capsule PO 0.5 mg DAILY [facility]IA[facility] Administration Fluconazole 200 mg 12/12/24 09:00 12/15/24 08:27 Fluconazole 100 Mg Tablet PO 12/22/24 09:01 200 mg QAM [facility]MIA[facility] Administration Fluticasone Propionate 1 spray 12/11/24 09:00 12/15/24 08:29 Fluticasone Propionate 0.05% Na Spr 16 Gm Btl (*Bkc) XX 1 spray DAILY [facility]MIA[facility] Administration Glimepiride 1 mg 12/10/24 09:00 12/10/24 10:30 Glimepiride 1 Mg Tablet PO 1 mg QAM [facility]MIA[facility] Administration Glucagon 1 mg 12/09/24 16:16 Glucagon For Inj 1 Mg Vial IM PRN PRN Hypoglycemia Protocol Glucose 15 gm 12/09/24 16:16 Glucose Oral Gel 15 Gm Of Glucse In 37.5 Gm Tube PO PRN PRN Hypoglycemia Protocol Dextrose 1,000 mls @ 100 mls/hr 12/09/24 16:16 Dextrose 5% 1,000 Ml IVPB PRN PRN Hypoglycemia Protocol Vancomycin HCl 1,500 mg in 500 mls @ 250 mls/hr 12/13/24 16:00 12/14/24 17:46 Vancomycin 1,500 Mg/Ns 500 Ml IVPB 01/22/25 23:59 Infused Q24H [facility] Infusion Insulin Aspart 1 - 2 units 12/09/24 21:00 12/14/24 21:06 Insulin Aspart (*Bkc) 100 Units/Ml SUB-Q 2 units HS [facility]HEMIAH Administration Protocol Insulin Aspart 3 - 6 units 12/15/24 17:00 Insulin Aspart (*Bkc) 100 Units/Ml SUB-Q TIDWM [facility] Protocol Levothyroxine Sodium 75 mcg 12/10/24 06:30 12/15/24 05:38 Levothyroxine Sodium 75 Mcg Tablet PO 75 mcg DAILY@0630 [facility] Administration Meloxicam 15 mg 12/10/24 09:00 12/15/24 08:28 Meloxicam 7.5 Mg Tablet PO 01/10/25 08:59 15 mg DAILY [facility] Administration Metformin HCl 2,000 mg 12/10/24 09:00 12/10/24 10:28 Metformin Hcl Xr 500 Mg Tab.Sr.24h BY MOUTH 2,000 mg DAILY [facility] Administration Metoprolol Succinate 50 mg 12/10/24 09:00 12/10/24 10:28 Metoprolol Succinate Ext Rel 50 Mg Tabcr PO 50 mg DAILY [facility] Administration Miconazole Nitrate 1 applic 12/10/24 09:00 12/15/24 08:30 Miconazole Nitrate 2% Cream 30 Gm Tube TOPICAL 1 applic BID [facility] Administration Morphine Sulfate 2 mg 12/09/24 13:22 12/15/24 01:35 Morphine Sulfate (*Crx) 2 Mg/Ml Inj IV PUSH 2 mg Q2H PRN Administration Pain Rated 7-10 Nitroglycerin 0.4 mg 12/09/24 18:28 Nitroglycerin Sl 0.4 Mg Tablet SUBLINGUAL Q5M PRN chest pain Ondansetron HCl 4 mg 12/09/24 13:22 12/09/24 19:49 Ondansetron Inj 4 Mg/2 Ml Vial IV PUSH 4 mg Q4H PRN Administration Nausea Polyethylene Glycol 17 gm 12/13/24 18:00 12/15/24 08:25 Polyethylene Glycol 3350 17 Gm Powd.Pack PO 17 gm DAILY [facility] Administration Polyethylene Glycol 17 gm 12/14/24 12:00 12/15/24 11:41 Polyethylene Glycol 3350 17 Gm Powd.Pack PO 17 gm Q6H [facility] Administration Prednisone 40 mg 12/09/24 19:30 12/15/24 08:27 Prednisone 20 Mg Tablet PO 12/17/24 09:01 40 mg DAILY [facility] Administration Prednisone 20 mg 12/18/24 09:00 Prednisone 20 Mg Tablet PO 12/31/24 09:01 DAILY [facility] Rosuvastatin Calcium 40 mg 12/10/24 09:00 12/15/24 08:27 Rosuvastatin 20 Mg Tablet PO 40 mg DAILY [facility] Administration Saccharomyces Boulardii 250 mg 12/15/24 09:00 12/15/24 11:59 Saccharomyces Boulardii 250 Mg Capsule PO 250 mg TID [facility]H Administration Triamcinolone Acetonide 1 applic 12/10/24 09:00 12/15/24 08:30 Triamcinolone Acet 0.1% Cream 15 Gm Tube TOPICAL 1 applic DAILY [facility] Administration Vitamin D 50 mcg 12/10/24 09:00 12/15/24 08:26 Cholecalciferol (Vitamin D3) 25 Mcg (1,000 Units) Tablet PO 50 mcg DAILY [facility] Administration Radiology Results: ITS Impressions Abdomen X-Ray 12/13/24 18:57 IMPRESSION: Small bowel ileus versus obstruction. Possible fecal impaction. Abdomen/Pelvis CT 12/14/24 13:19 IMPRESSION: 1. Residual small focus of gas within the bladder with decrease in the prior bladder wall thickening and surrounding inflammatory stranding consistent with resolving postoperative changes related to reported recent bladder cancer resection. 2. Mild bilateral hydronephrosis extending to the bladder which could be related to outlet obstruction, neurogenic bladder or potentially decreased bladder emptying as sequela of the recent surgery. 3. Worsening opacification/stranding in the fat in the anterior pelvis which could be related to the recent surgery but without evident abscess or potentially omental infarct. 4. Large ball of stool at rectum suspicious for constipation with fecal impaction. 5. Moderate-sized bilateral fat-containing inguinal hernias. 6. 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 This is new since study from 2007 and given the presence of a few scattered dystrophic calcifications could represent sequela of chronic pancreatitis. 7. New small left and very small right pleural effusions with some peripheral atelectasis at the left lower lobe and lingula. Labs Labs: Laboratory Results - last 24 hr 12/14/24 12/14/24 12/14/24 12:47 16:46 20:21 WBC 23.7 H RBC 4.04 L Hgb 11.4 L Hct 35.1 L MCV 86.9 MCH 28.2 MCHC 32.5 RDW 15.0 H Plt Count 262 MPV 9.6 Immature Gran % (Auto) 1.6 H Neut % (Auto) 94.3 H Lymph % (Auto) 1.7 L [place] % (Auto) 1.9 L Eos % (Auto) 0.0 Baso % (Auto) 0.5 Lymph # (Auto) 0.40 L [place] # (Auto) 0.4 Eos # (Auto) 0.0 Baso # (Auto) 0.1 Abs Immat Gran (auto) 0.39 H Absolute Neuts (auto) 22.3 H Absolute Nucleated RBC 0.000 Band Neutrophils % Not Reportable Nucleated RBC % 0.0 Platelet Estimate Adequate Poikilocytosis Anisocytosis [place] Cells 1+ Schistocytes None seen Sodium Potassium Chloride Carbon Dioxide Anion Gap BUN Creatinine Estim Creat Clear Calc Estimated GFR Glucose POC Capillary Glucose 296 H 357 H Calcium Total Bilirubin AST ALT Alkaline Phosphatase Total Protein Albumin 12/15/24 12/15/24 12/15/24 05:21 07:35 11:28 WBC 21.0 H RBC 4.01 L Hgb 11.4 L Hct 36.8 L MCV 91.8 D MCH 28.4 MCHC 31.0 L RDW 14.9 H Plt Count 252 MPV 9.9 Immature Gran % (Auto) 2.1 H Neut % (Auto) 91.3 H Lymph % (Auto) 3.8 L [place] % (Auto) 2.3 L Eos % (Auto) 0.1 Baso % (Auto) 0.4 Lymph # (Auto) 0.80 L [place] # (Auto) 0.5 Eos # (Auto) 0.0 Baso # (Auto) 0.1 Abs Immat Gran (auto) 0.44 H Absolute Neuts (auto) 19.1 H Absolute Nucleated RBC 0.000 Band Neutrophils % Not Reportable Nucleated RBC % 0.0 Platelet Estimate Adequate Poikilocytosis 1+ Anisocytosis 1+ [place] Cells 1+ Schistocytes None seen Sodium 133 L Potassium 4.2 Chloride 107 Carbon Dioxide 17 L Anion Gap 9 BUN 25 H Creatinine 1.07 Estim Creat Clear Calc 52 Estimated GFR > 60 Glucose 270 H POC Capillary Glucose 240 H 467 H Calcium 8.4 Total Bilirubin 0.5 AST 18 ALT 25 Alkaline Phosphatase 108 Total Protein 5.8 L Albumin 2.7 L
--- NOTE | 2024-12-15 12:48 | PM.IMPN ---
Progress Note: A&P Assessment and Plan (1) UTI (urinary tract infection): Qualifiers: Hematuria presence: with hematuria Urinary tract infection type: acute cystitis Qualified Code(s): N30.01 - Acute cystitis with hematuria Code(s): N39.0 - Urinary tract infection, site not specified Status: Acute Assessment and Plan: Acute cystitis following recent cystoscopy with transurethral resection of urothelial carcinoma Discussed Rocephin Reviewed urine culture Started on vancomycin (2) Bladder cancer: Qualifiers: Bladder location: unspecified site Qualified Code(s): C67.9 - Malignant neoplasm of bladder, unspecified Code(s): C67.9 - Malignant neoplasm of bladder, unspecified Status: Acute Assessment and Plan: as above (3) Type 2 diabetes mellitus with hyperglycemia: Qualifiers: Diabetes mellitus intermediate insulin use: without intermediate use Qualified Code(s): E11.65 - Type 2 diabetes mellitus with hyperglycemia Code(s): E11.65 - Type 2 diabetes mellitus with hyperglycemia Status: Chronic Assessment and Plan: SSI hypoglycemia protocol (4) Essential hypertension: Code(s): I10 - Essential (primary) hypertension Status: Chronic Assessment and Plan: hold antihypertensive medications due to low blood pressure (5) Pyoderma gangrenosum: Code(s): L88 - Pyoderma gangrenosum Status: Acute Assessment and Plan: continue wound care currently patient has in perirectal area and left inguinal area (6) Bacteremia: Code(s): R78.81 - Bacteremia Status: Acute Assessment and Plan: Source possibly UTI Blood culture from 0 6/0 4 shows Staph aureus Underwent YOLANDE no evidence of infective endocarditis, although tricuspid valve and pulmonary valves were not well visualized. 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 During the course of hospitalization patient blood culture was positive for Staph aureus. Underwent YOLANDE no evidence of infective endocarditis, although tricuspid valve and pulmonary valves were not well visualized. Patient needs to complete vancomycin for 6 weeks. Patient was evaluated by Urology no acute intervention . Consulted surgery for SBO vs Illeus. Subjective Date/time seen: 12/15/24 12:48 Interval history: Discussed with gastroenterology. Started on Augmentin. Patient today had increased blood sugar. Treated from low-dose to moderate dose sliding scale. Started on Lantus 15 units in the night. Review of Systems Review of Systems: Unobtainable due to patient's history of dementia. Exam Narrative: Weight 89.1 kg BMI 26.6 Const: Other: Acutely ill-appearing, elderly, obese HENMT: Other: Mucous membranes are dry, no oral pharyngeal erythema, crowded posterior oropharynx with class 3 ASA Eyes: Other: Pupils are equal and reactive, bilateral lens implants noted, no scleral icterus Neck: Other: No JVD, large neck circumference Resp: Other: Clear to auscultation bilaterally anterior velazquez, no increased work of breathing Cardio: Other: Regular rate, regular rhythm, 2/6 systolic murmur, no JVD GI: Other: Obese, soft, tender in suprapubic region, normoactive bowel sounds : Other: Uncircumcised male, incontinent of urine, large ulcer in the left groin please see nursing documentation for size and imaging Skin: Other: Large ulcer in the left groin with yellow base, no overt drainage, appearance consistent with patient's history of pyoderma gangrenosum, sacral wounds as well Neuro: Other: Alert oriented to person, place and situation confused as to the month in year, speech is clear patient is only answering direct questions, no facial asymmetry Extrem: Other: 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, no clubbing, cyanosis or edema Psych: Other: Flat affect, cooperative Objective Data Vital Signs Vital Signs: Vital Signs - 24 hr 12/14/24 14:00 12/14/24 20:38 12/15/24 06:00 Temperature 97.9 F 96.4 F L 97.4 F L Pulse Rate 80 80 75 Respiratory Rate 16 16 17 Blood Pressure 115/63 157/64 H 147/68 H Pulse Oximetry 97 97 97 Intake/Output Intake/Output: Intake & Output 12/12/24 12/13/24 12/14/24 12/15/24 23:59 23:59 23:59 23:59 Intake Total 960 311 6588 498 Output Total 3228 1450 500 900 Balance -1590 -750 1160 -402 Meds/Results Medications: Active Medications Generic Name Dose Route Start Last Admin Trade Name Redq PRN Reason Stop Dose Admin Acetaminophen 650 mg 12/09/24 13:22 12/11/24 09:04 Acetaminophen 325 Mg Tablet PO 650 mg Q4H PRN Administration Mild Pain (1-3) or Fever Hydrocodone Bitart/Acetaminophen 1 tab 12/11/24 11:08 12/15/24 11:44 Hydrocodone/Acetaminophen (*Crx) 5-325 Mg Tablet PO 1 tab Q4H PRN Administration Pain Rated 4-6 Amoxicillin/Clavulanate Potassium 1 tablet 12/15/24 09:00 12/15/24 08:55 Amoxicillin/Clavulanate K 875-125 Mg Tab PO 12/20/24 08:59 1 tablet Q12HR NEHEMIAH Administration Aspirin 81 mg 12/10/24 09:00 12/15/24 08:27 Aspirin 81 Mg Enteric Tablet PO 81 mg DAILY NEHEMIAH Administration Bacitracin 1 applic 12/10/24 09:00 12/15/24 08:29 Bacitracin Ointment 15 Gm Tube TOPICAL 1 applic BID NEHEMIAH Administration Dextrose 12.5 gm 12/09/24 16:16 Dextrose 50% 25 Gm/50 Ml Syringe IV PUSH PRN PRN Hypoglycemia Protocol Dibucaine 1 applic 12/09/24 19:26 12/13/24 18:35 Dibucaine 1% Ointment 30 Gm Tube TOPICAL 1 applic QID PRN Administration Pain of groin ulcer Donepezil HCl 5 mg 12/09/24 21:00 12/14/24 21:05 Donepezil Hcl 5 Mg Tablet PO 5 mg QHS NEHEMIAH Administration Doxazosin Mesylate 2 mg 12/09/24 21:00 12/14/24 21:04 Doxazosin Mesylate 2 Mg Tablet BY MOUTH 2 mg HS NEHEMIAH Administration Dutasteride 0.5 mg 12/10/24 09:00 12/15/24 08:28 Dutasteride 0.5 Mg Capsule PO 0.5 mg DAILY NEHEMIAH Administration Fluconazole 200 mg 12/12/24 09:00 12/15/24 08:27 Fluconazole 100 Mg Tablet PO 12/22/24 09:01 200 mg QAM NEHEMIAH Administration Fluticasone Propionate 1 spray 12/11/24 09:00 12/15/24 08:29 Fluticasone Propionate 0.05% Na Spr 16 Gm Btl (*Bkc) XX 1 spray DAILY NEHEMIAH Administration Glimepiride 1 mg 12/10/24 09:00 12/10/24 10:30 Glimepiride 1 Mg Tablet PO 1 mg QAM NEHEMIAH Administration Glucagon 1 mg 12/09/24 16:16 Glucagon For Inj 1 Mg Vial IM PRN PRN Hypoglycemia Protocol Glucose 15 gm 12/09/24 16:16 Glucose Oral Gel 15 Gm Of Glucse In 37.5 Gm Tube PO PRN PRN Hypoglycemia Protocol Dextrose 1,000 mls @ 100 mls/hr 12/09/24 16:16 Dextrose 5% 1,000 Ml IVPB PRN PRN Hypoglycemia Protocol Vancomycin HCl 1,500 mg in 500 mls @ 250 mls/hr 12/13/24 16:00 12/14/24 17:46 Vancomycin 1,500 Mg/Ns 500 Ml IVPB 01/22/25 23:59 Infused Q24H NEHEMIAH Infusion Insulin Aspart 1 - 2 units 12/09/24 21:00 12/14/24 21:06 Insulin Aspart (*Bkc) 100 Units/Ml SUB-Q 2 units HS NEHEMIAH Administration Protocol Insulin Aspart 3 - 6 units 12/15/24 17:00 Insulin Aspart (*Bkc) 100 Units/Ml SUB-Q TIDWM [facility] Protocol Levothyroxine Sodium 75 mcg 12/10/24 06:30 12/15/24 05:38 Levothyroxine Sodium 75 Mcg Tablet PO 75 mcg DAILY@0630 NEHEMIAH Administration Meloxicam 15 mg 12/10/24 09:00 12/15/24 08:28 Meloxicam 7.5 Mg Tablet PO 01/10/25 08:59 15 mg DAILY NEHEMIAH Administration Metformin HCl 2,000 mg 12/10/24 09:00 12/10/24 10:28 Metformin Hcl Xr 500 Mg Tab.Sr.24h BY MOUTH 2,000 mg DAILY NEHEMIAH Administration Metoprolol Succinate 50 mg 12/10/24 09:00 12/10/24 10:28 Metoprolol Succinate Ext Rel 50 Mg Tabcr PO 50 mg DAILY NEHEMIAH Administration Miconazole Nitrate 1 applic 12/10/24 09:00 12/15/24 08:30 Miconazole Nitrate 2% Cream 30 Gm Tube TOPICAL 1 applic BID NEHEMIAH Administration Morphine Sulfate 2 mg 12/09/24 13:22 12/15/24 01:35 Morphine Sulfate (*Crx) 2 Mg/Ml Inj IV PUSH 2 mg Q2H PRN Administration Pain Rated 7-10 Nitroglycerin 0.4 mg 12/09/24 18:28 Nitroglycerin Sl 0.4 Mg Tablet SUBLINGUAL Q5M PRN chest pain Ondansetron HCl 4 mg 12/09/24 13:22 12/09/24 19:49 Ondansetron Inj 4 Mg/2 Ml Vial IV PUSH 4 mg Q4H PRN Administration Nausea Polyethylene Glycol 17 gm 12/13/24 18:00 12/15/24 08:25 Polyethylene Glycol 3350 17 Gm Powd.Pack PO 17 gm DAILY NEHEMIAH Administration Polyethylene Glycol 17 gm 12/14/24 12:00 12/15/24 11:41 Polyethylene Glycol 3350 17 Gm Powd.Pack PO 17 gm Q6H NEHEMIAH Administration Prednisone 40 mg 12/09/24 19:30 12/15/24 08:27 Prednisone 20 Mg Tablet PO 12/17/24 09:01 40 mg DAILY NEHEMIAH Administration Prednisone 20 mg 12/18/24 09:00 Prednisone 20 Mg Tablet PO 12/31/24 09:01 DAILY NEHEMIAH Rosuvastatin Calcium 40 mg 12/10/24 09:00 12/15/24 08:27 Rosuvastatin 20 Mg Tablet PO 40 mg DAILY NEHEMIAH Administration Saccharomyces Boulardii 250 mg 12/15/24 09:00 12/15/24 11:59 Saccharomyces Boulardii 250 Mg Capsule PO 250 mg TID NEHEMIAH Administration Triamcinolone Acetonide 1 applic 12/10/24 09:00 12/15/24 08:30 Triamcinolone Acet 0.1% Cream 15 Gm Tube TOPICAL 1 applic DAILY NEHEMIAH Administration Vitamin D 50 mcg 12/10/24 09:00 12/15/24 08:26 Cholecalciferol (Vitamin D3) 25 Mcg (1,000 Units) Tablet PO 50 mcg DAILY NEHEMIAH Administration Radiology Results: ITS Impressions Abdomen X-Ray 12/13/24 18:57 IMPRESSION: Small bowel ileus versus obstruction. Possible fecal impaction. Abdomen/Pelvis CT 12/14/24 13:19 IMPRESSION: 1. Residual small focus of gas within the bladder with decrease in the prior bladder wall thickening and surrounding inflammatory stranding consistent with resolving postoperative changes related to reported recent bladder cancer resection. 2. Mild bilateral hydronephrosis extending to the bladder which could be related to outlet obstruction, neurogenic bladder or potentially decreased bladder emptying as sequela of the recent surgery. 3. Worsening opacification/stranding in the fat in the anterior pelvis which could be related to the recent surgery but without evident abscess or potentially omental infarct. 4. Large ball of stool at rectum suspicious for constipation with fecal impaction. 5. Moderate-sized bilateral fat-containing inguinal hernias. 6. 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 This is new since study from 2007 and given the presence of a few scattered dystrophic calcifications could represent sequela of chronic pancreatitis. 7. New small left and very small right pleural effusions with some peripheral atelectasis at the left lower lobe and lingula. Labs Labs: Laboratory Results - last 24 hr 12/14/24 12/14/24 12/14/24 12:47 16:46 20:21 WBC 23.7 H RBC 4.04 L Hgb 11.4 L Hct 35.1 L MCV 86.9 MCH 28.2 MCHC 32.5 RDW 15.0 H Plt Count 262 MPV 9.6 Immature Gran % (Auto) 1.6 H Neut % (Auto) 94.3 H Lymph % (Auto) 1.7 L Foster % (Auto) 1.9 L Eos % (Auto) 0.0 Baso % (Auto) 0.5 Lymph # (Auto) 0.40 L Foster # (Auto) 0.4 Eos # (Auto) 0.0 Baso # (Auto) 0.1 Abs Immat Gran (auto) 0.39 H Absolute Neuts (auto) 22.3 H Absolute Nucleated RBC 0.000 Band Neutrophils % Not Reportable Nucleated RBC % 0.0 Platelet Estimate Adequate Poikilocytosis Anisocytosis [place] Cells 1+ Schistocytes None seen Sodium Potassium Chloride Carbon Dioxide Anion Gap BUN Creatinine Estim Creat Clear Calc Estimated GFR Glucose POC Capillary Glucose 296 H 357 H Calcium Total Bilirubin AST ALT Alkaline Phosphatase Total Protein Albumin 12/15/24 12/15/24 12/15/24 05:21 07:35 11:28 WBC 21.0 H RBC 4.01 L Hgb 11.4 L Hct 36.8 L MCV 91.8 D MCH 28.4 MCHC 31.0 L RDW 14.9 H Plt Count 252 MPV 9.9 Immature Gran % (Auto) 2.1 H Neut % (Auto) 91.3 H Lymph % (Auto) 3.8 L Foster % (Auto) 2.3 L Eos % (Auto) 0.1 Baso % (Auto) 0.4 Lymph # (Auto) 0.80 L Foster # (Auto) 0.5 Eos # (Auto) 0.0 Baso # (Auto) 0.1 Abs Immat Gran (auto) 0.44 H Absolute Neuts (auto) 19.1 H Absolute Nucleated RBC 0.000 Band Neutrophils % Not Reportable Nucleated RBC % 0.0 Platelet Estimate Adequate Poikilocytosis 1+ Anisocytosis 1+ Kristin Cells 1+ Schistocytes None seen Sodium 133 L Potassium 4.2 Chloride 107 Carbon Dioxide 17 L Anion Gap 9 BUN 25 H Creatinine 1.07 Estim Creat Clear Calc 52 Estimated GFR > 60 Glucose 270 H POC Capillary Glucose 240 H 467 H Calcium 8.4 Total Bilirubin 0.5 AST 18 ALT 25 Alkaline Phosphatase 108 Total Protein 5.8 L Albumin 2.7 L Quality VTE Prophylaxis VTE prophylaxis: mechanical ordered (SCDs) Hospitalist MIPS Advance Care Plan I have confirmed that the patient's Advanced Care Plan is present, code status is documented, or surrogate decision maker is listed in patient medical record.: Yes Medication Reconciliation I have utilized all available resources to obtain, update and review the patients current medications (includes all prescriptions, OTC, herbals, cannabis, and nutritional supplements).: Yes
[2024-12-15 14:00] VITALS: BP 125/52; PULSE 81; RESP 18; TEMP 36.3; O2SAT 95
[2024-12-15] MEDS: LACTULOSE 20 GM/30 ML UDC 15 GM PO (14:29)
[2024-12-15 15:36] LABS: Vancomycin Trough 14.8 ug/mL (10.0-20.0)
[2024-12-15] MEDS: VANCOMYCIN 1,500 MG/NS 500 ML 1,500 MG/500 ML BAG 250 MG IVPB (16:13)
[2024-12-15 16:54] LABS: Glucose Point of Care 394 mg/dl (65-105)
[2024-12-15 20:00] VITALS: PULSE 82; RESP 14; O2SAT 98
[2024-12-15 20:04] LABS: Glucose Point of Care 401 mg/dl (65-105)
[2024-12-15] MEDS: INSULIN GLARGINE (*BKC) 100 UNITS/ML 15 UNITS SUB-Q (20:09)
[2024-12-15] MEDS: DOXAZOSIN MESYLATE 2 MG TABLET BY MOUTH (20:20)
[2024-12-15] MEDS: DONEPEZIL HCL 5 MG TABLET PO (20:20)
[2024-12-15 21:21] VITALS: O2SAT 95
[2024-12-15 21:37] VITALS: BP 163/62; PULSE 82; RESP 14; TEMP 36.2; O2SAT 98
[2024-12-16] MEDS: LEVOTHYROXINE SODIUM 75 MCG TABLET PO (05:59)
[2024-12-16] MEDS: polyethylene glycoL 3350 17 GM POWD.PACK PO (05:59)
[2024-12-16 06:00] VITALS: BP 157/60; PULSE 94; RESP 16; TEMP 36.1; O2SAT 98
[2024-12-16] MEDS: HYDROcodone/acetaminophen (*CRX) 5-325 MG TABLET 1 TAB PO (06:04)
[2024-12-16 06:26] LABS: Hematocrit 36.4 % (42.0-52.0); Hemoglobin 11.6 g/dL (14.0-18.0); Mean Corpuscular HGB Conc 31.9 g/dl (32-36); Mean Corpuscular Hemoglobin 28.2 pg (26-34); Mean Corpuscular Volume 88.6 fl (80-100); Platelet Count Result 286 k/mm3 (150-375); Red Blood Count 4.11 M/mm3 (4.6-6.20); Red Cell Distribution Width 14.9 % (11.5-14.5); White Blood Count 17.5 K/mm3 (4.5-10.0)
[2024-12-16 06:42] LABS: Alanine Aminotransferase 53 U/L (6-50); Albumin Level 2.8 g/dL (3.5-5.1); Alkaline Phosphatase 122 U/L (38-126); Anion Gap 9 mmol/L (4-12); Aspartate Amino Transferase 34 U/L (17-59); Bilirubin,Total 0.5 mg/dL (0.2-1.3); Blood Urea Nitrogen 26 mg/dL (9-20); Calcium 8.4 mg/dL (8.4-10.2); Carbon Dioxide 18 mmol/L (22-30); Chloride 106 mmol/L (98-107); Estimated CRCL calculation 52 ml/min; Estimated Glomerular Filt Rate > 60; Glucose 329 mg/dL (65-110); Potassium 3.9 mmol/L (3.4-5.0); Sodium 133 mmol/L (137-145)
[2024-12-16 07:37] LABS: Glucose Point of Care 319 mg/dl (65-105)
[2024-12-16] MEDS: INSULIN ASPART (*BKC) 100 UNITS/ML SUB-Q ×4 (07:40→20:52)
[2024-12-16] MEDS: MELOXICAM 7.5 MG TABLET 15 MG PO (08:08)
[2024-12-16] MEDS: FLUCONAZOLE 100 MG TABLET 200 MG PO (08:09)
[2024-12-16] MEDS: AMOXICILLIN/CLAVULANATE K 875-125 MG TAB 1 TABLET PO ×2 (08:09→20:51)
[2024-12-16] MEDS: predniSONE 20 MG TABLET 40 MG PO (08:09)
[2024-12-16] MEDS: ASPIRIN 81 MG ENTERIC TABLET PO (08:09)
[2024-12-16] MEDS: SACCHAROMYCES BOULARDII 250 MG CAPSULE PO ×3 (08:09→16:07)
[2024-12-16] MEDS: CHOLECALCIFEROL (VITAMIN D3) 25 MCG (1,000 UNITS) TABLET 50 MCG PO (08:09)
[2024-12-16] MEDS: DUTASTERIDE 0.5 MG CAPSULE PO (08:09)
[2024-12-16] MEDS: ROSUVASTATIN 20 MG TABLET 40 MG PO (08:09)
[2024-12-16] MEDS: FLUTICASONE PROPIONATE 0.05% NA SPR 16 GM BTL (*BKC) 1 SPRAY XX (08:10)
[2024-12-16 08:11] VITALS: RESP 16; O2SAT 98
[2024-12-16] MEDS: BACITRACIN OINTMENT 15 GM TUBE 1 APPLIC TOPICAL ×2 (08:11→16:12)
[2024-12-16] MEDS: TRIAMCINOLONE ACET 0.1% CREAM 15 GM TUBE 1 APPLIC TOPICAL (08:11)
[2024-12-16] MEDS: MICONAZOLE NITRATE 2% CREAM 30 GM TUBE 1 APPLIC TOPICAL ×2 (08:11→16:12)
[2024-12-16] MEDS: MORPHINE SULFATE (*CRX) 2 MG/ML INJ IV PUSH ×4 (08:12→20:51)
--- NOTE | 2024-12-16 09:00 | P.PNIM_ITS ---
Progress Note: A&P Assessment and Plan (1) UTI (urinary tract infection): Qualifiers: Hematuria presence: with hematuria Urinary tract infection type: acute cystitis Qualified Code(s): N30.01 - Acute cystitis with hematuria Code(s): N39.0 - Urinary tract infection, site not specified Status: Acute Assessment and Plan: Acute cystitis following recent cystoscopy with transurethral resection of urothelial carcinoma DC Rocephin Reviewed urine culture Started on vancomycin until 01/22/2025 Started on Augmentin Urology was consulted and no acute intervention and advised to follow up as outpatient CT abdomen pelvis:1. Residual small focus of gas within the bladder with decrease in the prior bladder wall thickening and surrounding inflammatory stranding consistent with resolving postoperative changes related to reported recent bladder cancer resection. 2. Mild bilateral hydronephrosis extending to the bladder which could be related to outlet obstruction, neurogenic bladder or potentially decreased bladder emptying as sequela of the recent surgery. 3. Worsening opacification/stranding in the fat in the anterior pelvis which could be related to the recent surgery but without evident abscess or potentially omental infarct. 4. Large ball of stool at rectum suspicious for constipation with fecal impaction. 5. Moderate-sized bilateral fat-containing inguinal hernias. 6. 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 This is new since study from 2007 and given the presence of a few scattered dystrophic calcifications could represent sequela of chronic pancreatitis. 7. New small left and very small right pleural effusions with some peripheral atelectasis at the left lower lobe and lingula. (2) Bladder cancer: Qualifiers: Bladder location: unspecified site Qualified Code(s): C67.9 - Malignant neoplasm of bladder, unspecified Code(s): C67.9 - Malignant neoplasm of bladder, unspecified Status: Acute Assessment and Plan: Follows up at [facility] All his care is taken care at [facility] (3) Type 2 diabetes mellitus with hyperglycemia: Qualifiers: Diabetes mellitus assisted insulin use: without long term care administrator use Qualified Code(s): E11.65 - Type 2 diabetes mellitus with hyperglycemia Code(s): E11.65 - Type 2 diabetes mellitus with hyperglycemia Status: Chronic Assessment and Plan: 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 Titrate as needed SSI Hypoglycemia protocol (4) Essential hypertension: Code(s): I10 - Essential (primary) hypertension Status: Chronic Assessment and Plan: hold antihypertensive medications due to low blood pressure (5) Pyoderma gangrenosum: Code(s): L88 - Pyoderma gangrenosum Status: Acute Assessment and Plan: continue wound care currently patient has in perirectal area and left inguinal area (6) Bacteremia: Code(s): R78.81 - Bacteremia Status: Acute Assessment and Plan: Source possibly UTI Blood culture from 0 6/ 4 shows Staph aureus Underwent YOLANDE no evidence of infective endocarditis, although tricuspid valve and pulmonary valves were not well visualized. 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 During the course of hospitalization patient blood culture was positive for Staph aureus. Underwent YOLANDE no evidence of infective endocarditis, although tricuspid valve and pulmonary valves were not well visualized. Patient needs to complete vancomycin for 6 weeks. Patient was evaluated by Urology no acute intervention . Consulted surgery for SBO vs Illeus. Subjective Date/time seen: 12/16/24 09:00 Interval history: As per nursing patient had multi bowel movements today and discontinue MiraLax a p.o. q.6 hours P. Patient needs a total 6 weeks of IV vancomycin due to bacteremia from Staph aureus. Patient is to follow-up with infectious disease as outpatient. Surgery and GI following due to constipation versus SBO. Patient is currently on steroid due to pyoderma gangrenosum. His blood sugars has been not on target. Yesterday started Lantus and today increased to 15-20 units units and started NovoLog 7 units t.i.d.. Patient still on SSI. Will titrate as needed Review of Systems Review of Systems: Unobtainable due to patient's history of dementia. Exam Narrative: Weight 89.1 kg BMI 26.6 Const: Other: Acutely ill-appearing, elderly, obese HENMT: Other: Mucous membranes are dry, no oral pharyngeal erythema, crowded posterior oropharynx with class 3 ASA Eyes: Other: Pupils are equal and reactive, bilateral lens implants noted, no scleral icterus Neck: Other: No JVD, large neck circumference Resp: Other: Clear to auscultation bilaterally anterior velazquez, no increased work of breathing Cardio: Other: Regular rate, regular rhythm, 2/6 systolic murmur, no JVD GI: Other: Obese, soft, tender in suprapubic region, normoactive bowel sounds : Other: Uncircumcised male, incontinent of urine, large ulcer in the left groin please see nursing documentation for size and imaging Skin: Other: Large ulcer in the left groin with yellow base, no overt drainage, appearance consistent with patient's history of pyoderma gangrenosum, sacral wounds as well Neuro: Other: Alert oriented to person, place and situation confused as to the month in year, speech is clear patient is only answering direct questions, no facial asymmetry Extrem: Other: 5/5 labor 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 strength bilaterally, no clubbi ng, cyanosis or edema Psych: Other: Flat affect, cooperative Objective Data Vital Signs Vital Signs: Vital Signs - 24 hr 12/15/24 14:00 12/15/24 20:00 12/15/24 21:21 Temperature 97.3 F L Pulse Rate 81 82 Respiratory Rate 18 14 Blood Pressure 125/52 L Pulse Oximetry 95 98 95 Oxygen Delivery Room Air Room Air Fraction of Inspired Oxygen 21 12/15/24 21:37 12/16/24 06:00 Temperature 97.1 F L 97.0 F L Pulse Rate 82 94 Respiratory Rate 14 16 Blood Pressure 163/62 H 157/60 H Pulse Oximetry 98 98 Oxygen Delivery Fraction of Inspired Oxygen Intake/Output Intake/Output: Intake & Output 12/13/24 12/14/24 12/15/24 12/16/24 23:59 23:59 23:59 23:59 Intake Total 700 1660 1238 440 Output Total 3614 649 3838 1400 Balance -750 1160 -476 -050 Meds/Results Medications: Active Medications Generic Name Dose Route Start Last Admin Trade Name Freq PRN Reason Stop Dose Admin Acetaminophen 650 mg 12/09/24 13:22 12/11/24 09:04 Acetaminophen 325 Mg Tablet PO 650 mg Q4H PRN Administration Mild Pain (1-3) or Fever Hydrocodone Bitart/Acetaminophen 1 tab 12/11/24 11:08 12/16/24 06:04 Hydrocodone/Acetaminophen (*Crx) 5-325 Mg Tablet PO 1 tab Q4H PRN Administration Pain Rated 4-6 Amoxicillin/Clavulanate Potassium 1 tablet 12/15/24 09:00 12/16/24 08:09 Amoxicillin/Clavulanate K 875-125 Mg Tab PO 12/20/24 08:59 1 tablet Q12HR NEHEMIAH Administration Aspirin 81 mg 12/10/24 09:00 12/16/24 08:09 Aspirin 81 Mg Enteric Tablet PO 81 mg DAILY NEHEMIAH Administration Bacitracin 1 applic 12/10/24 09:00 12/16/24 08:11 Bacitracin Ointment 15 Gm Tube TOPICAL 1 applic BID NEHEMIAH Administration Dextrose 12.5 gm 12/09/24 16:16 Dextrose 50% 25 Gm/50 Ml Syringe IV PUSH PRN PRN Hypoglycemia Protocol Dibucaine 1 applic 12/09/24 19:26 12/13/24 18:35 Dibucaine 1% Ointment 30 Gm Tube TOPICAL 1 applic QID PRN Administration Pain of groin ulcer Donepezil HCl 5 mg 12/09/24 21:00 12/15/24 20:20 Donepezil Hcl 5 Mg Tablet PO 5 mg QHS NEHEMIAH Administration Doxazosin Mesylate 2 mg 12/09/24 21:00 12/15/24 20:20 Doxazosin Mesylate 2 Mg Tablet BY MOUTH 2 mg HS NEHEMIAH Administration Dutasteride 0.5 mg 12/10/24 09:00 12/16/24 08:09 Dutasteride 0.5 Mg Capsule PO 0.5 mg DAILY NE[facility]MIAH Administration Fluconazole 200 mg 12/12/24 09:00 12/16/24 08:09 Fluconazole 100 Mg Tablet PO 12/22/24 09:01 200 mg QAM NE[facility]MIAH Administration Fluticasone Propionate 1 spray 12/11/24 09:00 12/16/24 08:10 Fluticasone Propionate 0.05% Na Spr 16 Gm Btl (*Bkc) XX 1 spray DAILY NEHEMIAH Administration Glimepiride 1 mg 12/10/24 09:00 12/10/24 10:30 Glimepiride 1 Mg Tablet PO 1 mg QAM NE[facility]MIAH Administration Glucagon 1 mg 12/09/24 16:16 Glucagon For Inj 1 Mg Vial IM PRN PRN Hypoglycemia Protocol Glucose 15 gm 12/09/24 16:16 Glucose Oral Gel 15 Gm Of Glucse In 37.5 Gm Tube PO PRN PRN Hypoglycemia Protocol Dextrose 1,000 mls @ 100 mls/hr 12/09/24 16:16 Dextrose 5% 1,000 Ml IVPB PRN PRN Hypoglycemia Protocol Vancomycin HCl 1,500 mg in 500 mls @ 250 mls/hr 12/13/24 16:00 12/15/24 18:13 Vancomycin 1,500 Mg/Ns 500 Ml IVPB 01/22/25 23:59 Infused Q24H NEHEMIAH Infusion Insulin Aspart 1 - 2 units 12/09/24 21:00 12/15/24 20:08 Insulin Aspart (*Bkc) 100 Units/Ml SUB-Q 2 units HS [facility] Administration Protocol Insulin Aspart 3 - 6 units 12/15/24 17:00 12/16/24 07:40 Insulin Aspart (*Bkc) 100 Units/Ml SUB-Q 5 units TIDWM [facility] Administration Protocol Insulin Glargine 15 units 12/15/24 21:00 12/15/24 20:09 Insulin Glargine (*Bkc) 100 Units/Ml SUB-Q 15 units HS [facility]MIAH Administration Levothyroxine Sodium 75 mcg 12/10/24 06:30 12/16/24 05:59 Levothyroxine Sodium 75 Mcg Tablet PO 75 mcg DAILY@0630 [facility] Administration Meloxicam 15 mg 12/10/24 09:00 12/16/24 08:08 Meloxicam 7.5 Mg Tablet PO 01/10/25 08:59 15 mg DAILY [facility]MIA[facility] Administration Metformin HCl 2,000 mg 12/10/24 09:00 12/10/24 10:28 Metformin Hcl Xr 500 Mg Tab.Sr.24h BY MOUTH 2,000 mg DAILY NE[facility]MIAH Administration Metoprolol Succinate 50 mg 12/10/24 09:00 12/10/24 10:28 Metoprolol Succinate Ext Rel 50 Mg Tabcr PO 50 mg DAILY [facility] Administration Miconazole Nitrate 1 applic 12/10/24 09:00 12/16/24 08:11 Miconazole Nitrate 2% Cream 30 Gm Tube TOPICAL 1 applic BID NEHEMIAH Administration Morphine Sulfate 2 mg 12/09/24 13:22 12/16/24 08:12 Morphine Sulfate (*Crx) 2 Mg/Ml Inj IV PUSH 2 mg Q2H PRN Administration Pain Rated 7-10 Nitroglycerin 0.4 mg 12/09/24 18:28 Nitroglycerin Sl 0.4 Mg Tablet SUBLINGUAL Q5M PRN chest pain Ondansetron HCl 4 mg 12/09/24 13:22 12/09/24 19:49 Ondansetron Inj 4 Mg/2 Ml Vial IV PUSH 4 mg Q4H PRN Administration Nausea Polyethylene Glycol 17 gm 12/13/24 18:00 12/16/24 08:46 Polyethylene Glycol 3350 17 Gm Powd.Pack PO Not Given DAILY NEHEMIAH Prednisone 40 mg 12/09/24 19:30 12/16/24 08:09 Prednisone 20 Mg Tablet PO 12/17/24 09:01 40 mg DAILY [facility]MIA[facility] Administration Prednisone 20 mg 12/18/24 09:00 Prednisone 20 Mg Tablet PO 12/31/24 09:01 DAILY NEHEMIAH Rosuvastatin Calcium 40 mg 12/10/24 09:00 12/16/24 08:09 Rosuvastatin 20 Mg Tablet PO 40 mg DAILY NE[facility]MIA[facility] Administration Saccharomyces Boulardii 250 mg 12/15/24 09:00 12/16/24 08:09 Saccharomyces Boulardii 250 Mg Capsule PO 250 mg TID NEHEMIAH Administration Triamcinolone Acetonide 1 applic 12/10/24 09:00 12/16/24 08:11 Triamcinolone Acet 0.1% Cream 15 Gm Tube TOPICAL 1 applic DAILY [facility]MIA[facility] Administration Vitamin D 50 mcg 12/10/24 09:00 12/16/24 08:09 Cholecalciferol (Vitamin D3) 25 Mcg (1,000 Units) Tablet PO 50 mcg DAILY [facility]MIA[facility] Administration Radiology Results: ITS Impressions Abdomen X-Ray 12/13/24 18:57 IMPRESSION: Small bowel ileus versus obstruction. Possible fecal impaction. Abdomen/Pelvis CT 12/14/24 13:19 IMPRESSION: 1. Residual small focus of gas within the bladder with decrease in the prior bladder wall thickening and surrounding inflammatory stranding consistent with resolving postoperative changes related to reported recent bladder cancer resection. 2. Mild bilateral hydronephrosis extending to the bladder which could be related to outlet obstruction, neurogenic bladder or potentially decreased bladder emptying as sequela of the recent surgery. 3. Worsening opacification/stranding in the fat in the anterior pelvis which could be related to the recent surgery but without evident abscess or potentially omental infarct. 4. Large ball of stool at rectum suspicious for constipation with fecal impaction. 5. Moderate-sized bilateral fat-containing inguinal hernias. 6. 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 This is new since study from 2007 and given the presence of a few scattered dystrophic calcifications could represent sequela of chronic pancreatitis. 7. New small left and very small right pleural effusions with some peripheral atelectasis at the left lower lobe and lingula. Labs Labs: Laboratory Results - last 24 hr 12/15/24 12/15/24 12/15/24 11:28 15:14 16:45 WBC RBC Hgb Hct MCV MCH MCHC RDW Plt Count MPV Sodium Potassium Chloride Carbon Dioxide Anion Gap BUN Creatinine Estim Creat Clear Calc Estimated GFR Glucose POC Capillary Glucose 467 H 394 H Calcium Total Bilirubin AST ALT Alkaline Phosphatase Total Protein Albumin Vancomycin Trough 14.8 12/15/24 12/16/24 12/16/24 19:44 05:46 07:29 WBC 17.5 H RBC 4.11 L Hgb 11.6 L Hct 36.4 L MCV 88.6 MCH 28.2 MCHC 31.9 L RDW 14.9 H Plt Count 286 MPV 11.0 H Sodium 133 L Potassium 3.9 Chloride 106 Carbon Dioxide 18 L Anion Gap 9 BUN 26 H Creatinine 1.06 Estim Creat Clear Calc 52 Estimated GFR > 60 Glucose 329 H POC Capillary Glucose 401 H 319 H Calcium 8.4 Total Bilirubin 0.5 AST 34 ALT 53 H Alkaline Phosphatase 122 Total Protein 6.0 L Albumin 2.8 L Vancomycin Trough Quality VTE Prophylaxis VTE prophylaxis: mechanical ordered (SCDs) Hospitalist MIPS Advance Care Plan I have confirmed that the patient's Advanced Care Plan is present, code status is documented, or surrogate decision maker is listed in patient medical record.: Yes Medication Reconciliation I have utilized all available resources to obtain, update and review the patients current medications (includes all prescriptions, OTC, herbals, cannabis, and nutritional supplements).: Yes
--- NOTE | 2024-12-16 11:07 | PM.PNGS ---
Progress Note: A&P Assessment and Plan (1) Chronic idiopathic constipation: Code(s): K59.04 - Chronic idiopathic constipation Status: Acute Assessment and Plan: resolved, cont bowel regimen per GI, no acute surgical issues, will s/o, call c ?s, issues Subjective Subjective Date/Time Seen: 12/16/24 11:07 Interval history: multiple bowel movements overnight and today, feels a little better Review of Systems Review of Systems: All systems reviewed & are unremarkable except as noted in HPI and below Exam Const: General: cooperative, no acute distress and uncomfortable Resp: Auscultation: clear to auscultation bilaterally Cardio: Rate: regular rate Rhythm: regular rhythm GI: Inspection: normal to inspection and non-distended GI Palp: Yes abdominal tenderness, Yes Soft to palpation, No Guarding due to palpation present (GI) and No Rigid due to palpation Objective Data Vital Signs Vital Signs: Vital Signs - 24 hr 12/15/24 14:00 12/15/24 20:00 12/15/24 21:21 Temperature 36.3 C L Pulse Rate 81 82 Respiratory Rate 18 14 Blood Pressure 125/52 L Pulse Oximetry 95 98 95 Oxygen Delivery Room Air Room Air Fraction of Inspired Oxygen 21 12/15/24 21:37 12/16/24 06:00 12/16/24 08:11 Temperature 36.2 C L 36.1 C L Pulse Rate 82 94 Respiratory Rate 14 16 16 Blood Pressure 163/62 H 157/60 H Pulse Oximetry 98 98 98 Oxygen Delivery Room Air Fraction of Inspired Oxygen Intake/Output Intake/Output: Intake & Output 12/13/24 12/14/24 12/15/24 12/16/24 23:59 23:59 23:59 23:59 Intake Total 700 1660 1238 440 Output Total 0457 524 3858 1400 Balance -750 1160 462 960 Meds/Results Medications: Active Medications Generic Name Dose Route Start Last Admin Trade Name Freq PRN Reason Stop Dose Admin Acetaminophen 650 mg 12/09/24 13:22 12/11/24 09:04 Acetaminophen 325 Mg Tablet PO 650 mg Q4H PRN Administration Mild Pain (1-3) or Fever Hydrocodone Bitart/Acetaminophen 1 tab 12/11/24 11:08 12/16/24 06:04 Hydrocodone/Acetaminophen (*Crx) 5-325 Mg Tablet PO 1 tab Q4H PRN Administration Pain Rated 4-6 Amoxicillin/Clavulanate Potassium 1 tablet 12/15/24 09:00 12/16/24 08:09 Amoxicillin/Clavulanate K 875-125 Mg Tab PO 12/20/24 08:59 1 tablet Q12HR NEHEMIAH Administration Aspirin 81 mg 12/10/24 09:00 12/16/24 08:09 Aspirin 81 Mg Enteric Tablet PO 81 mg DAILY NEHEMIAH Administration Bacitracin 1 applic 12/10/24 09:00 12/16/24 08:11 Bacitracin Ointment 15 Gm Tube TOPICAL 1 applic BID NEHEMIAH Administration Dextrose 12.5 gm 12/09/24 16:16 Dextrose 50% 25 Gm/50 Ml Syringe IV PUSH PRN PRN Hypoglycemia Protocol Dibucaine 1 applic 12/09/24 19:26 12/13/24 18:35 Dibucaine 1% Ointment 30 Gm Tube TOPICAL 1 applic QID PRN Administration Pain of groin ulcer Donepezil HCl 5 mg 12/09/24 21:00 12/15/24 20:20 Donepezil Hcl 5 Mg Tablet PO 5 mg QHS NEHEMIAH Administration Doxazosin Mesylate 2 mg 12/09/24 21:00 12/15/24 20:20 Doxazosin Mesylate 2 Mg Tablet BY MOUTH 2 mg HS NEHEMIAH Administration Dutasteride 0.5 mg 12/10/24 09:00 12/16/24 08:09 Dutasteride 0.5 Mg Capsule PO 0.5 mg DAILY NE[facility]MIAH Administration Fluconazole 200 mg 12/12/24 09:00 12/16/24 08:09 Fluconazole 100 Mg Tablet PO 12/22/24 09:01 200 mg QAM NEHEMIAH Administration Fluticasone Propionate 1 spray 12/11/24 09:00 12/16/24 08:10 Fluticasone Propionate 0.05% Na Spr 16 Gm Btl (*Bkc) XX 1 spray DAILY NE[facility]MIAH Administration Glimepiride 1 mg 12/10/24 09:00 12/10/24 10:30 Glimepiride 1 Mg Tablet PO 1 mg QAM NEHEMIAH Administration Glucagon 1 mg 12/09/24 16:16 Glucagon For Inj 1 Mg Vial IM PRN PRN Hypoglycemia Protocol Glucose 15 gm 12/09/24 16:16 Glucose Oral Gel 15 Gm Of Glucse In 37.5 Gm Tube PO PRN PRN Hypoglycemia Protocol Dextrose 1,000 mls @ 100 mls/hr 12/09/24 16:16 Dextrose 5% 1,000 Ml IVPB PRN PRN Hypoglycemia Protocol Vancomycin HCl 1,500 mg in 500 mls @ 250 mls/hr 12/13/24 16:00 12/15/24 18:13 Vancomycin 1,500 Mg/Ns 500 Ml IVPB 01/22/25 23:59 Infused Q24H [facility]MIA[facility] Infusion Insulin Aspart 1 - 2 units 12/09/24 21:00 12/15/24 20:08 Insulin Aspart (*Bkc) 100 Units/Ml SUB-Q 2 units HS [facility] Administration Protocol Insulin Aspart 3 - 6 units 12/15/24 17:00 12/16/24 07:40 Insulin Aspart (*Bkc) 100 Units/Ml SUB-Q 5 units TIDWM [facility] Administration Protocol Insulin Aspart 6 units 12/16/24 12:00 Insulin Aspart (*Bkc) 100 Units/Ml 0.067 units/kg (6 units) SUB-Q TIDWM [facility] Insulin Glargine 20 units 12/16/24 21:00 Insulin Glargine (*Bkc) 100 Units/Ml SUB-Q HS [facility]MIAH Levothyroxine Sodium 75 mcg 12/10/24 06:30 12/16/24 05:59 Levothyroxine Sodium 75 Mcg Tablet PO 75 mcg DAILY@0630 [facility] Administration Meloxicam 15 mg 12/10/24 09:00 12/16/24 08:08 Meloxicam 7.5 Mg Tablet PO 01/10/25 08:59 15 mg DAILY [facility] Administration Metformin HCl 2,000 mg 12/10/24 09:00 12/10/24 10:28 Metformin Hcl Xr 500 Mg Tab.Sr.24h BY MOUTH 2,000 mg DAILY [facility] Administration Metoprolol Succinate 50 mg 12/10/24 09:00 12/10/24 10:28 Metoprolol Succinate Ext Rel 50 Mg Tabcr PO 50 mg DAILY [facility] Administration Miconazole Nitrate 1 applic 12/10/24 09:00 12/16/24 08:11 Miconazole Nitrate 2% Cream 30 Gm Tube TOPICAL 1 applic BID NE[facility]MIAH Administration Morphine Sulfate 2 mg 12/09/24 13:22 12/16/24 08:12 Morphine Sulfate (*Crx) 2 Mg/Ml Inj IV PUSH 2 mg Q2H PRN Administration Pain Rated 7-10 Nitroglycerin 0.4 mg 12/09/24 18:28 Nitroglycerin Sl 0.4 Mg Tablet SUBLINGUAL Q5M PRN chest pain Ondansetron HCl 4 mg 12/09/24 13:22 12/09/24 19:49 Ondansetron Inj 4 Mg/2 Ml Vial IV PUSH 4 mg Q4H PRN Administration Nausea Polyethylene Glycol 17 gm 12/13/24 18:00 12/16/24 08:46 Polyethylene Glycol 3350 17 Gm Powd.Pack PO Not Given DAILY [facility]MIA[facility] Prednisone 40 mg 12/09/24 19:30 12/16/24 08:09 Prednisone 20 Mg Tablet PO 12/17/24 09:01 40 mg DAILY [facility] Administration Prednisone 20 mg 12/18/24 09:00 Prednisone 20 Mg Tablet PO 12/31/24 09:01 DAILY [facility] Rosuvastatin Calcium 40 mg 12/10/24 09:00 12/16/24 08:09 Rosuvastatin 20 Mg Tablet PO 40 mg DAILY [facility] Administration Saccharomyces Boulardii 250 mg 12/15/24 09:00 12/16/24 08:09 Saccharomyces Boulardii 250 Mg Capsule PO 250 mg TID NE[facility]MIAH Administration Triamcinolone Acetonide 1 applic 12/10/24 09:00 12/16/24 08:11 Triamcinolone Acet 0.1% Cream 15 Gm Tube TOPICAL 1 applic DAILY [facility] Administration Vitamin D 50 mcg 12/10/24 09:00 12/16/24 08:09 Cholecalciferol (Vitamin D3) 25 Mcg (1,000 Units) Tablet PO 50 mcg DAILY [facility] Administration Radiology Results: ITS Impressions Abdomen X-Ray 12/13/24 18:57 IMPRESSION: Small bowel ileus versus obstruction. Possible fecal impaction. Abdomen/Pelvis CT 12/14/24 13:19 IMPRESSION: 1. Residual small focus of gas within the bladder with decrease in the prior bladder wall thickening and surrounding inflammatory stranding consistent with resolving postoperative changes related to reported recent bladder cancer resection. 2. Mild bilateral hydronephrosis extending to the bladder which could be related to outlet obstruction, neurogenic bladder or potentially decreased bladder emptying as sequela of the recent surgery. 3. Worsening opacification/stranding in the fat in the anterior pelvis which could be related to the recent surgery but without evident abscess or potentially omental infarct. 4. Large ball of stool at rectum suspicious for constipation with fecal impaction. 5. Moderate-sized bilateral fat-containing inguinal hernias. 6. 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 This is new since study from 2007 and given the presence of a few scattered dystrophic calcifications could represent sequela of chronic pancreatitis. 7. New small left and very small right pleural effusions with some peripheral atelectasis at the left lower lobe and lingula. Labs Labs: Laboratory Results - last 24 hr 12/15/24 12/15/24 12/15/24 11:28 15:14 16:45 WBC RBC Hgb Hct MCV MCH MCHC RDW Plt Count MPV Sodium Potassium Chloride Carbon Dioxide Anion Gap BUN Creatinine Estim Creat Clear Calc Estimated GFR Glucose POC Capillary Glucose 467 H 394 H Calcium Total Bilirubin AST ALT Alkaline Phosphatase Total Protein Albumin Vancomycin Trough 14.8 12/15/24 12/16/24 12/16/24 19:44 05:46 07:29 WBC 17.5 H RBC 4.11 L Hgb 11.6 L Hct 36.4 L MCV 88.6 MCH 28.2 MCHC 31.9 L RDW 14.9 H Plt Count 286 MPV 11.0 H Sodium 133 L Potassium 3.9 Chloride 106 Carbon Dioxide 18 L Anion Gap 9 BUN 26 H Creatinine 1.06 Estim Creat Clear Calc 52 Estimated GFR > 60 Glucose 329 H POC Capillary Glucose 401 H 319 H Calcium 8.4 Total Bilirubin 0.5 AST 34 ALT 53 H Alkaline Phosphatase 122 Total Protein 6.0 L Albumin 2.8 L Vancomycin Trough
[2024-12-16 11:27] LABS: Glucose Point of Care 320 mg/dl (65-105)
[2024-12-16] MEDS: INSULIN ASPART (*BKC) 100 UNITS/ML 6 UNITS SUB-Q ×2 (11:40→16:46)
[2024-12-16 12:34] LABS: Basophils Absolute Auto 0.1 K/mm3 (0.0-0.1); Basophils Percent Auto 0.3 % (0.2-1.2); Eosinophils Percent Auto 0.1 % (0-4.4); Hematocrit 34.7 % (42.0-52.0); Hemoglobin 11.2 g/dL (14.0-18.0); Immature Granulocyte Absolute 0.35 K/mm3 (0.00-0.031); Lymphocytes Percent Auto 2.3 % (18.3-44.2); Mean Corpuscular HGB Conc 32.3 g/dl (32-36); Mean Corpuscular Hemoglobin 28.1 pg (26-34); Mean Corpuscular Volume 87.2 fl (80-100); Mean Platelet Volume 9.8 fl (7.4-10.4); Monocytes Absolute Auto 0.2 K/mm3 (0.1-0.6); Monocytes Percent Auto 1.4 % (2.6-8.5); Neutrophils Absolute Auto 16.1 K/mm3 (1.3-6.7); Neutrophils Percent Auto 93.9 % (45.5-73.1); Platelet Count Result 254 k/mm3 (150-375); Red Blood Count 3.98 M/mm3 (4.6-6.20); Red Cell Distribution Width 14.7 % (11.5-14.5); White Blood Count 17.2 K/mm3 (4.5-10.0)
--- NOTE | 2024-12-16 13:57 | WPDGIPROGNO ---
Progress Note: A&P Assessment and Plan (1) Abdominal pain: Qualifiers: Abdominal location: generalized Qualified Code(s): R10.84 - Generalized abdominal pain Code(s): R10.9 - Unspecified abdominal pain Status: Acute Assessment and Plan: This patient presented with a temporary ileus that resolved within 24 hours with conservative management. The ileus is believed to be related to a pelvic inflammatory/infectious process, likely a complication of a recent indwelling urological resection of a bladder neoplasm. Although the primary etiology is likely urological, the clinical picture is being managed as acute diverticulitis. The patient is immunosuppressed due to chronic steroid use, necessitating broad-spectrum antimicrobial coverage. He is currently on Augmentin for anaerobic and Gram-negative organisms, and intravenous vancomycin to treat Staphylococcus aureus bacteremia identified in blood cultures. He is now tolerating oral intake. The plan is for him to complete at least 10 days of Augmentin. The hospital stay should be based on completion of Vancomycin for Staph aureus bacteremia. If he remains hemodynamically stable and his white blood cell count continues to decrease, advise discharging on the current Augmentin dose with close follow-up by his urologist . Will sign off for now, please contact us for any other problem related to our specialty. Subjective Date/time seen: 12/16/24 13:57 Interval history: Patient tolerated diet well, and is complaining of less abdominal pain. White count trending down. Exam Narrative: Abdomen: Much less tender than the days before. No rebound tenderness. Bowel sounds Present. Rest of the exam within normal limits. Objective Data Vital Signs Vital Signs: Vital Signs - 24 hr 12/15/24 14:00 12/15/24 20:00 12/15/24 21:21 Temperature 97.3 F L Pulse Rate 81 82 Respiratory Rate 18 14 Blood Pressure 125/52 L Pulse Oximetry 95 98 95 Oxygen Delivery Room Air Room Air Fraction of Inspired Oxygen 21 12/15/24 21:37 12/16/24 06:00 12/16/24 08:11 Temperature 97.1 F L 97.0 F L Pulse Rate 82 94 Respiratory Rate 14 16 16 Blood Pressure 163/62 H 157/60 H Pulse Oximetry 98 98 98 Oxygen Delivery Room Air Fraction of Inspired Oxygen Intake/Output Intake/Output: Intake & Output 12/13/24 12/14/24 12/15/24 12/16/24 23:59 23:59 23:59 23:59 Intake Total 700 1660 1238 1226 Output Total 8722 673 2165 1400 Balance -750 2858 -826 -564 Meds/Results Medications: Active Medications Generic Name Dose Route Start Last Admin Trade Name Freq PRN Reason Stop Dose Admin Acetaminophen 650 mg 12/09/24 13:22 12/11/24 09:04 Acetaminophen 325 Mg Tablet PO 650 mg Q4H PRN Administration Mild Pain (1-3) or Fever Hydrocodone Bitart/Acetaminophen 1 tab 12/11/24 11:08 12/16/24 06:04 Hydrocodone/Acetaminophen (*Crx) 5-325 Mg Tablet PO 1 tab Q4H PRN Administration Pain Rated 4-6 Amoxicillin/Clavulanate Potassium 1 tablet 12/15/24 09:00 12/16/24 08:09 Amoxicillin/Clavulanate K 875-125 Mg Tab PO 12/20/24 08:59 1 tablet Q12HR NEHEMIAH Administration Aspirin 81 mg 12/10/24 09:00 12/16/24 08:09 Aspirin 81 Mg Enteric Tablet PO 81 mg DAILY NEHEMIAH Administration Bacitracin 1 applic 12/10/24 09:00 12/16/24 08:11 Bacitracin Ointment 15 Gm Tube TOPICAL 1 applic BID NEHEMIAH Administration Dextrose 12.5 gm 12/09/24 16:16 Dextrose 50% 25 Gm/50 Ml Syringe IV PUSH PRN PRN Hypoglycemia Protocol Dibucaine 1 applic 12/09/24 19:26 12/13/24 18:35 Dibucaine 1% Ointment 30 Gm Tube TOPICAL 1 applic QID PRN Administration Pain of groin ulcer Donepezil HCl 5 mg 12/09/24 21:00 12/15/24 20:20 Donepezil Hcl 5 Mg Tablet PO 5 mg QHS NEHEMIAH Administration Doxazosin Mesylate 2 mg 12/09/24 21:00 12/15/24 20:20 Doxazosin Mesylate 2 Mg Tablet BY MOUTH 2 mg HS NEHEMIAH Administration Dutasteride 0.5 mg 12/10/24 09:00 12/16/24 08:09 Dutasteride 0.5 Mg Capsule PO 0.5 mg DAILY NEHEMIAH Administration Fluconazole 200 mg 12/12/24 09:00 12/16/24 08:09 Fluconazole 100 Mg Tablet PO 12/22/24 09:01 200 mg QAM NEHEMIAH Administration Fluticasone Propionate 1 spray 12/11/24 09:00 12/16/24 08:10 Fluticasone Propionate 0.05% Na Spr 16 Gm Btl (*Bkc) XX 1 spray DAILY NEHEMIAH Administration Glimepiride 1 mg 12/10/24 09:00 12/10/24 10:30 Glimepiride 1 Mg Tablet PO 1 mg QAM NEHEMIAH Administration Glucagon 1 mg 12/09/24 16:16 Glucagon For Inj 1 Mg Vial IM PRN PRN Hypoglycemia Protocol Glucose 15 gm 12/09/24 16:16 Glucose Oral Gel 15 Gm Of Glucse In 37.5 Gm Tube PO PRN PRN Hypoglycemia Protocol Dextrose 1,000 mls @ 100 mls/hr 12/09/24 16:16 Dextrose 5% 1,000 Ml IVPB PRN PRN Hypoglycemia Protocol Vancomycin HCl 1,500 mg in 500 mls @ 250 mls/hr 12/13/24 16:00 12/15/24 18:13 Vancomycin 1,500 Mg/Ns 500 Ml IVPB 01/22/25 23:59 Infused Q24H NEHEMIAH Infusion Insulin Aspart 1 - 2 units 12/09/24 21:00 12/15/24 20:08 Insulin Aspart (*Bkc) 100 Units/Ml SUB-Q 2 units HS NEHEMIAH Administration Protocol Insulin Aspart 3 - 6 units 12/15/24 17:00 12/16/24 11:40 Insulin Aspart (*Bkc) 100 Units/Ml SUB-Q 5 units TIDWM NEHEMIAH Administration Protocol Insulin Aspart 6 units 12/16/24 12:00 12/16/24 11:40 Insulin Aspart (*Bkc) 100 Units/Ml 0.067 units/kg (6 units) 6 units SUB-Q Administration TIDWM REPLACED BY [facility] Insulin Glargine 20 units 12/16/24 21:00 Insulin Glargine (*Bkc) 100 Units/Ml SUB-Q HS NEHEMIAH Levothyroxine Sodium 75 mcg 12/10/24 06:30 12/16/24 05:59 Levothyroxine Sodium 75 Mcg Tablet PO 75 mcg DAILY@0630 NEHEMIAH Administration Meloxicam 15 mg 12/10/24 09:00 12/16/24 08:08 Meloxicam 7.5 Mg Tablet PO 01/10/25 08:59 15 mg DAILY NEHEMIHA Administration Metformin HCl 2,000 mg 12/10/24 09:00 12/10/24 10:28 Metformin Hcl Xr 500 Mg Tab.Sr.24h BY MOUTH 2,000 mg DAILY NEHEMIAH Administration Metoprolol Succinate 50 mg 12/10/24 09:00 12/10/24 10:28 Metoprolol Succinate Ext Rel 50 Mg Tabcr PO 50 mg DAILY NEHEMIAH Administration Miconazole Nitrate 1 applic 12/10/24 09:00 12/16/24 08:11 Miconazole Nitrate 2% Cream 30 Gm Tube TOPICAL 1 applic BID NEHEMIAH Administration Morphine Sulfate 2 mg 12/09/24 13:22 12/16/24 12:20 Morphine Sulfate (*Crx) 2 Mg/Ml Inj IV PUSH 2 mg Q2H PRN Administration Pain Rated 7-10 Nitroglycerin 0.4 mg 12/09/24 18:28 Nitroglycerin Sl 0.4 Mg Tablet SUBLINGUAL Q5M PRN chest pain Ondansetron HCl 4 mg 12/09/24 13:22 12/09/24 19:49 Ondansetron Inj 4 Mg/2 Ml Vial IV PUSH 4 mg Q4H PRN Administration Nausea Polyethylene Glycol 17 gm 12/13/24 18:00 12/16/24 08:46 Polyethylene Glycol 3350 17 Gm Powd.Pack PO Not Given DAILY REPLACED BY [facility] Prednisone 40 mg 12/09/24 19:30 12/16/24 08:09 Prednisone 20 Mg Tablet PO 12/17/24 09:01 40 mg DAILY REPLACED BY [facility] Administration Prednisone 20 mg 12/18/24 09:00 Prednisone 20 Mg Tablet PO 12/31/24 09:01 DAILY REPLACED BY [facility] Rosuvastatin Calcium 40 mg 12/10/24 09:00 12/16/24 08:09 Rosuvastatin 20 Mg Tablet PO 40 mg DAILY REPLACED BY [facility] Administration Saccharomyces Boulardii 250 mg 12/15/24 09:00 12/16/24 12:20 Saccharomyces Boulardii 250 Mg Capsule PO 250 mg TID REPLACED BY [facility] Administration Triamcinolone Acetonide 1 applic 12/10/24 09:00 12/16/24 08:11 Triamcinolone Acet 0.1% Cream 15 Gm Tube TOPICAL 1 applic DAILY NEHEMIAH Administration Vitamin D 50 mcg 12/10/24 09:00 12/16/24 08:09 Cholecalciferol (Vitamin D3) 25 Mcg (1,000 Units) Tablet PO 50 mcg DAILY NEHEMIAH Administration Radiology Results: ITS Impressions Abdomen X-Ray 12/13/24 18:57 IMPRESSION: Small bowel ileus versus obstruction. Possible fecal impaction. Abdomen/Pelvis CT 12/14/24 13:19 IMPRESSION: 1. Residual small focus of gas within the bladder with decrease in the prior bladder wall thickening and surrounding inflammatory stranding consistent with resolving postoperative changes related to reported recent bladder cancer resection. 2. Mild bilateral hydronephrosis extending to the bladder which could be related to outlet obstruction, neurogenic bladder or potentially decreased bladder emptying as sequela of the recent surgery. 3. Worsening opacification/stranding in the fat in the anterior pelvis which could be related to the recent surgery but without evident abscess or potentially omental infarct. 4. Large ball of stool at rectum suspicious for constipation with fecal impaction. 5. Moderate-sized bilateral fat-containing inguinal hernias. 6. 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 This is new since study from 2007 and given the presence of a few scattered dystrophic calcifications could represent sequela of chronic pancreatitis. 7. New small left and very small right pleural effusions with some peripheral atelectasis at the left lower lobe and lingula. Labs Labs: Laboratory Results - last 24 hr 12/15/24 12/15/24 12/15/24 15:14 16:45 19:44 WBC RBC Hgb Hct MCV MCH MCHC RDW Plt Count MPV Immature Gran % (Auto) Neut % (Auto) Lymph % (Auto) Towner % (Auto) Eos % (Auto) Baso % (Auto) Lymph # (Auto) Towner # (Auto) Eos # (Auto) Baso # (Auto) Abs Immat Gran (auto) Absolute Neuts (auto) Absolute Nucleated RBC Nucleated RBC % Sodium Potassium Chloride Carbon Dioxide Anion Gap BUN Creatinine Estim Creat Clear Calc Estimated GFR Glucose POC Capillary Glucose 394 H 401 H Calcium Total Bilirubin AST ALT Alkaline Phosphatase Total Protein Albumin Vancomycin Trough 14.8 12/16/24 12/16/24 12/16/24 05:46 07:29 11:24 WBC 17.5 H RBC 4.11 L Hgb 11.6 L Hct 36.4 L MCV 88.6 MCH 28.2 MCHC 31.9 L RDW 14.9 H Plt Count 286 MPV 11.0 H Immature Gran % (Auto) Neut % (Auto) Lymph % (Auto) Towner % (Auto) Eos % (Auto) Baso % (Auto) Lymph # (Auto) Towner # (Auto) Eos # (Auto) Baso # (Auto) Abs Immat Gran (auto) Absolute Neuts (auto) Absolute Nucleated RBC Nucleated RBC % Sodium 133 L Potassium 3.9 Chloride 106 Carbon Dioxide 18 L Anion Gap 9 BUN 26 H Creatinine 1.06 Estim Creat Clear Calc 52 Estimated GFR > 60 Glucose 329 H POC Capillary Glucose 319 H 320 H Calcium 8.4 Total Bilirubin 0.5 AST 34 ALT 53 H Alkaline Phosphatase 122 Total Protein 6.0 L Albumin 2.8 L Vancomycin Trough 12/16/24 12:25 WBC 17.2 H RBC 3.98 L Hgb 11.2 L Hct 34.7 L MCV 87.2 MCH 28.1 MCHC 32.3 RDW 14.7 H Plt Count 254 MPV 9.8 Immature Gran % (Auto) 2.0 H Neut % (Auto) 93.9 H Lymph % (Auto) 2.3 L Towner % (Auto) 1.4 L Eos % (Auto) 0.1 Baso % (Auto) 0.3 Lymph # (Auto) 0.40 L Towner # (Auto) 0.2 Eos # (Auto) 0.0 Baso # (Auto) 0.1 Abs Immat Gran (auto) 0.35 H Absolute Neuts (auto) 16.1 H Absolute Nucleated RBC 0.000 Nucleated RBC % 0.0 Sodium Potassium Chloride Carbon Dioxide Anion Gap BUN Creatinine Estim Creat Clear Calc Estimated GFR Glucose POC Capillary Glucose Calcium Total Bilirubin AST ALT Alkaline Phosphatase Total Protein Albumin Vancomycin Trough
[2024-12-16 14:00] VITALS: BP 119/52; PULSE 80; RESP 18; TEMP 36.2; O2SAT 97
[2024-12-16 16:31] LABS: Glucose Point of Care 246 mg/dl (65-105)
[2024-12-16 16:38] LABS: Vancomycin Trough 15.5 ug/mL (10.0-20.0)
[2024-12-16] MEDS: VANCOMYCIN 1,500 MG/NS 500 ML 1,500 MG/500 ML BAG 200 MG IVPB (17:01)
[2024-12-16 20:02] VITALS: PULSE 85; RESP 20; O2SAT 97
[2024-12-16 20:12] LABS: Glucose Point of Care 271 mg/dl (65-105)
[2024-12-16] MEDS: DONEPEZIL HCL 5 MG TABLET PO (20:51)
[2024-12-16] MEDS: DOXAZOSIN MESYLATE 2 MG TABLET BY MOUTH (20:51)
[2024-12-16] MEDS: INSULIN GLARGINE (*BKC) 100 UNITS/ML 20 UNITS SUB-Q (20:53)
[2024-12-16 21:48] VITALS: BP 104/71; PULSE 60; RESP 19; TEMP 36.2; O2SAT 97
[2024-12-17] MEDS: HYDROcodone/acetaminophen (*CRX) 5-325 MG TABLET 1 TAB PO ×2 (04:00→13:20)
[2024-12-17 05:34] VITALS: BP 109/57; PULSE 106; RESP 16; TEMP 36.2; O2SAT 98
[2024-12-17] MEDS: LEVOTHYROXINE SODIUM 75 MCG TABLET PO (05:59)
[2024-12-17 06:07] LABS: Hematocrit 33.7 % (42.0-52.0); Hemoglobin 10.8 g/dL (14.0-18.0); Mean Corpuscular Hemoglobin 28.3 pg (26-34); Mean Corpuscular Volume 88.2 fl (80-100); Mean Platelet Volume 9.6 fl (7.4-10.4); Platelet Count Result 230 k/mm3 (150-375); Red Blood Count 3.82 M/mm3 (4.6-6.20); Red Cell Distribution Width 14.8 % (11.5-14.5); White Blood Count 15.1 K/mm3 (4.5-10.0)
[2024-12-17 06:22] LABS: Alanine Aminotransferase 33 U/L (6-50); Albumin Level 2.4 g/dL (3.5-5.1); Alkaline Phosphatase 93 U/L (38-126); Anion Gap 4 mmol/L (4-12); Aspartate Amino Transferase 19 U/L (17-59); Bilirubin,Total 0.4 mg/dL (0.2-1.3); Blood Urea Nitrogen 23 mg/dL (9-20); Calcium 7.9 mg/dL (8.4-10.2); Carbon Dioxide 19 mmol/L (22-30); Chloride 110 mmol/L (98-107); Estimated CRCL calculation 64 ml/min; Estimated Glomerular Filt Rate > 60; Glucose 211 mg/dL (65-110); Potassium 3.7 mmol/L (3.4-5.0); Sodium 133 mmol/L (137-145); Total Protein 5.4 g/dL (6.3-8.2)
[2024-12-17 07:46] LABS: Glucose Point of Care 190 mg/dl (65-105)
[2024-12-17] MEDS: INSULIN ASPART (*BKC) 100 UNITS/ML 6 UNITS SUB-Q ×3 (07:52→17:01)
[2024-12-17] MEDS: predniSONE 20 MG TABLET 40 MG PO (08:19)
[2024-12-17] MEDS: ROSUVASTATIN 20 MG TABLET 40 MG PO (08:19)
[2024-12-17] MEDS: AMOXICILLIN/CLAVULANATE K 875-125 MG TAB 1 TABLET PO (08:19)
[2024-12-17] MEDS: MELOXICAM 7.5 MG TABLET 15 MG PO (08:19)
[2024-12-17] MEDS: CHOLECALCIFEROL (VITAMIN D3) 25 MCG (1,000 UNITS) TABLET 50 MCG PO (08:19)
[2024-12-17] MEDS: FLUCONAZOLE 100 MG TABLET 200 MG PO (08:19)
[2024-12-17] MEDS: ASPIRIN 81 MG ENTERIC TABLET PO (08:20)
[2024-12-17] MEDS: SACCHAROMYCES BOULARDII 250 MG CAPSULE PO ×3 (08:20→17:00)
[2024-12-17 08:21] VITALS: RESP 16; O2SAT 98
[2024-12-17] MEDS: FLUTICASONE PROPIONATE 0.05% NA SPR 16 GM BTL (*BKC) 1 SPRAY XX (08:21)
[2024-12-17] MEDS: BACITRACIN OINTMENT 15 GM TUBE 1 APPLIC TOPICAL ×2 (08:21→17:02)
[2024-12-17] MEDS: MICONAZOLE NITRATE 2% CREAM 30 GM TUBE 1 APPLIC TOPICAL ×2 (08:21→17:03)
[2024-12-17] MEDS: TRIAMCINOLONE ACET 0.1% CREAM 15 GM TUBE 1 APPLIC TOPICAL (08:25)
[2024-12-17] MEDS: DUTASTERIDE 0.5 MG CAPSULE PO (08:26)
--- NOTE | 2024-12-17 10:58 | P.CDI_ITS ---
CDI Query Clarification Request 1) Please clarify if SIRS been ruled in or ruled out? 2)Bacteremia has been documented, using the CDC definitions below, please clarify the appropriate diagnosis for your patients clinical presentation and severity of illness. * Septicemia: Systemic disease (sepsis) associated with positive blood cultures. * Sepsis: An infection-induced syndrome without organ dysfunction. * Severe Sepsis: Sepsis with associated acute organ dysfunction. * Septic Shock: Severe sepsis in which the cardiovascular system begins to fail, blood pressure drops, and vital organs are deprived of adequate blood supply. The medical chart reflects the following: ER documented: Clinical Impression: Cystitis, SIRS (systemic inflammatory response syndrome) Hospitalist documented: (6) Bacteremia: Code(s): R78.81 - Bacteremia Status: Acute Assessment and Plan: Source possibly UTI Blood culture from 0 4 shows Staph aureus Underwent YOLANDE no evidence of infective endocarditis, although tricuspid valve and pulmonary valves were not well visualized. Monitor leukocytosis Patient on prednisone due to pyoderma gangrenosum started vancomycin x 6 weeks Plan Blood cultures from 12/09 show MRSA in 1/4 bottles (anaerobic bottle). Repeat blood cultures 12/12 negative to date. Augmentin po q12 hr vancomycin IV q 24 hr ceftriaxone x1 dose <Delilah Saul RN - Last Filed: 12/17/24 11:14> Clarified Diagnosis Clarified Diagnosis: * Septicemia: Systemic disease (sepsis) associated with positive blood cultures. <Mahogany Fraire MD - Last Filed: 12/17/24 12:02>
[2024-12-17] MEDS: LIDOCAINE 1% PF INJ 5 ML VIAL INFILTRATE (11:45)
[2024-12-17 12:12] LABS: SARS-CoV-2 RNA PCR Negative (Negative)
[2024-12-17 12:18] LABS: Glucose Point of Care 200 mg/dl (65-105)
--- NOTE | 2024-12-17 12:42 | PCNWS ---
Weekly nutritional screen. Patient is tolerating current heart healthy diet with adequate intake 50-100% most meals. No weight loss reported. Noted elevated blood sugars, lantus increased. Recommended a diabetic diet, orders continue as of now for heart healthy. No further nutritional recommendations at this time.
[2024-12-17 12:47] LABS: Basophils Absolute Auto 0.1 K/mm3 (0.0-0.1); Basophils Percent Auto 0.4 % (0.2-1.2); Eosinophils Percent Auto 0.2 % (0-4.4); Hematocrit 34.5 % (42.0-52.0); Hemoglobin 11.1 g/dL (14.0-18.0); Immature Granulocyte Absolute 0.35 K/mm3 (0.00-0.031); Immature Granulocyte Percent A 1.8 % (0-0.5); Lymphocytes Absolute Auto 0.74 K/mm3 (0.9-3.2); Lymphocytes Percent Auto 3.8 % (18.3-44.2); Mean Corpuscular HGB Conc 32.2 g/dl (32-36); Mean Corpuscular Volume 86.9 fl (80-100); Mean Platelet Volume 9.6 fl (7.4-10.4); Monocytes Absolute Auto 0.6 K/mm3 (0.1-0.6); Monocytes Percent Auto 2.8 % (2.6-8.5); Neutrophils Absolute Auto 17.8 K/mm3 (1.3-6.7); Platelet Count Result 249 k/mm3 (150-375); Red Blood Count 3.97 M/mm3 (4.6-6.20); Red Cell Distribution Width 14.9 % (11.5-14.5); White Blood Count 19.5 K/mm3 (4.5-10.0)
[2024-12-17] MEDS: CENTRAL LINE FLUSH 10 ML IV PUSH (13:21)
--- NOTE | 2024-12-17 14:08 | PM.DS ---
DS: Admitting Diagnosis Discharge Date 12/17/24 Admitting Diagnosis Abdominal pain and difficulty urinating DS: Discharge Diagnosis Discharge Diagnosis (1) UTI (urinary tract infection): Qualifiers: Urinary tract infection type: acute cystitis Hematuria presence: with hematuria Qualified Code(s): N30.01 - Acute cystitis with hematuria Code(s): N39.0 - Urinary tract infection, site not specified Status: Acute (2) Bacteremia: Code(s): R78.81 - Bacteremia Status: Acute (3) Pyoderma gangrenosum: Code(s): L88 - Pyoderma gangrenosum Status: Acute DS: Summary Hospital Course Hospital Course: 84-year-old male with a past medical history of dementia, essential hypertension, hypothyroidism, type 2 diabetes, pyoderma gangrenosum and 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 During the course of hospitalization patient blood culture was positive for Staph aureus. Underwent YOLANDE no evidence of infective endocarditis, although tricuspid valve and pulmonary valves were not well visualized. Patient needs to complete vancomycin for 6 weeks. Patient was evaluated by Urology no acute intervention . Consulted surgery for SBO vs Illeus. Urology was consulted and patient was managed for acute cystitis and urine culture positive MRSA Patinet discharged on Vanc, also Augmentin x 8 more days. patient was alaso managed for MRSA bacteria, likely from urine. Cardiology was consulted and YOLANDE was done with no significant findings in the heart. Rpeat Cultue from 12/12/24 still negative. patient was discharge on Vancomycin to complete 6 weeks total. Patinet was managed for ileur and Constipation and GI and gen surgery were consuletd, symptoms resolved. Patient is being managed for bladder cancer at [facility] and he will conitnue follow up at [facility]. F/u with PCP in 3-5 days F/u wiht cardiology, GI and Gen surgery as instructed. COntineu follow up with [facility] urology as instructed Time Spent with Patient Time attestation: Total time spent providing and/or coordinating discharge services: DS: Data Data Completed and Pending Labs on day of discharge: Labs from last 24 hours 12/17/24 12/17/24 12/17/24 12:40 12:16 11:29 WBC 19.5 H RBC 3.97 L Hgb 11.1 L Hct 34.5 L MCV 86.9 MCH 28.0 MCHC 32.2 RDW 14.9 H Plt Count 249 MPV 9.6 Immature Gran % (Auto) 1.8 H Neut % (Auto) 91.0 H Lymph % (Auto) 3.8 L Lewis % (Auto) 2.8 Eos % (Auto) 0.2 Baso % (Auto) 0.4 Lymph # (Auto) 0.74 L Lewis # (Auto) 0.6 Eos # (Auto) 0.0 Baso # (Auto) 0.1 Abs Immat Gran (auto) 0.35 H Absolute Neuts (auto) 17.8 H Absolute Nucleated RBC 0.000 Nucleated RBC % 0.0 Sodium Potassium Chloride Carbon Dioxide Anion Gap BUN Creatinine Estim Creat Clear Calc Estimated GFR Glucose POC Capillary Glucose 200 H Calcium Total Bilirubin AST ALT Alkaline Phosphatase Total Protein Albumin Vancomycin Trough SARS-CoV-2 RNA (RT-PCR) Negative 12/17/24 12/17/24 12/16/24 07:43 05:52 20:08 WBC 15.1 H RBC 3.82 L Hgb 10.8 L Hct 33.7 L MCV 88.2 MCH 28.3 MCHC 32.0 RDW 14.8 H Plt Count 230 MPV 9.6 Immature Gran % (Auto) Neut % (Auto) Lymph % (Auto) Lewis % (Auto) Eos % (Auto) Baso % (Auto) Lymph # (Auto) Lewis # (Auto) Eos # (Auto) Baso # (Auto) Abs Immat Gran (auto) Absolute Neuts (auto) Absolute Nucleated RBC Nucleated RBC % Sodium 133 L Potassium 3.7 Chloride 110 H Carbon Dioxide 19 L Anion Gap 4 BUN 23 H Creatinine 0.86 Estim Creat Clear Calc 64 Estimated GFR > 60 Glucose 211 H POC Capillary Glucose 190 H 271 H Calcium 7.9 L Total Bilirubin 0.4 AST 19 ALT 33 Alkaline Phosphatase 93 Total Protein 5.4 L Albumin 2.4 L Vancomycin Trough SARS-CoV-2 RNA (RT-PCR) 12/16/24 12/16/24 16:28 15:36 WBC RBC Hgb Hct MCV MCH MCHC RDW Plt Count MPV Immature Gran % (Auto) Neut % (Auto) Lymph % (Auto) Lewis % (Auto) Eos % (Auto) Baso % (Auto) Lymph # (Auto) Lewis # (Auto) Eos # (Auto) Baso # (Auto) Abs Immat Gran (auto) Absolute Neuts (auto) Absolute Nucleated RBC Nucleated RBC % Sodium Potassium Chloride Carbon Dioxide Anion Gap BUN Creatinine Estim Creat Clear Calc Estimated GFR Glucose POC Capillary Glucose 246 H Calcium Total Bilirubin AST ALT Alkaline Phosphatase Total Protein Albumin Vancomycin Trough 15.5 SARS-CoV-2 RNA (RT-PCR) Preliminary micro results at discharge 12/12/24 07:01 Blood Culture - Preliminary Blood 12/12/24 06:48 Blood Culture - Preliminary Blood Discharge Plan Discharge Attending physician on discharge: Mahogany Fraire Consulting providers: Billy Meredith; Leonardo Molina Discharging Clinician: Mahogany Fraire Anticipated Discharge Date/Time: 12/17/24 13:37 Patient Disposition: SNF Activity: as tolerated Diet: as tolerated and diabetic Patient Instructions: Antibiotic Form, Pain Management in Older Adults (GEN) Patient Language: Cameroonian Stand Alone Forms: General Discharge Information Follow-up/Referrals: Billy Meredith MD [Physician] - (F/u with Urology as [facility]) Leonardo Molina MD [Physician] - (F/u with cardiology as instructed ) Willard Gilbert MD [Primary Care Provider] - (F/u with PCP in 3-5 days ) Discharge Medications: New vancomycin 1.5 gram Recon Soln 1,500 mg IV Q24H 35 Days Qty: 52.5 0RF Saccharomyces boulardii [Florastor] 250 mg Capsule 250 mg PO TID 30 Days Qty: 90 0RF amoxicillin-pot clavulanate 875-125 mg tablet 1 tablet PO Q12H 8 Days Qty: 16 0RF Continued nitroglycerin 0.4 mg tablet, sublingual 0.4 mg SUBLINGUAL Q5M PRN (Reason: chest pain) Qty: 25 0RF Rx Instructions: until response; do not exceed 3 doses per episode aspirin [Adult Low Dose Aspirin] 81 mg tablet,delayed release (DR/EC) 81 mg PO DAILY bacitracin 500 unit/gram ointment 1 applic topical BID Patient Comments: from biometrics instructor triamcinolone acetonide 0.1 % cream 1 applic topical DAILY Patient Comments: from biometrics instructor dibucaine 1 % ointment 1 applic topical QID PRN (Reason: Pain of groin ulcer) Patient Comments: from biometrics instructor prednisone 20 mg tablet 40 mg PO DAILY Patient Comments: for 14 days cholecalciferol (vitamin D3) 50 mcg (2,000 unit) capsule 2,000 unit PO DAILY alendronate 70 mg tablet 70 mg PO WEEKLY Patient Comments: pt takes on TUESDAYS nystatin 100,000 unit/gram powder 1 applic topical BID Qty: 30 0RF nystatin 100,000 unit/gram cream 1 applic topical BID Qty: 30 0RF donepezil [Aricept] 5 mg tablet 5 mg PO QHS Qty: 30 3RF amlodipine 5 mg tablet 5 mg PO DAILY Qty: 90 1RF metoprolol succinate 50 mg tablet extended release 24 hr 50 mg PO DAILY Qty: 90 1RF doxazosin 2 mg tablet See Rx Instructions .ROUTE .COMPLEX Qty: 90 1RF Dose Instruction: TAKE 1 TABLET BY MOUTH EVERY DAY AT BEDTIME Rx Instructions: TAKE 1 TABLET BY MOUTH EVERY DAY AT BEDTIME Jardiance 25 mg tablet 25 mg PO QAM Qty: 90 1RF metformin 500 mg tablet extended release 24 hr See Rx Instructions .ROUTE .COMPLEX Qty: 360 0RF Dose Instruction: TAKE 4 TABLETS BY MOUTH ONCE DAILY IN THE MORNING Rx Instructions: TAKE 4 TABLETS BY MOUTH ONCE DAILY IN THE MORNING rosuvastatin 40 mg tablet 40 mg PO DAILY Qty: 90 3RF glimepiride 1 mg tablet 1 mg PO QAM Qty: 90 1RF Rx Instructions: administer with breakfast meloxicam 15 mg tablet See Rx Instructions .ROUTE .COMPLEX Qty: 90 1RF Dose Instruction: Take 1 tablet by mouth once daily Rx Instructions: Take 1 tablet by mouth once daily dutasteride 0.5 mg capsule 0.5 mg PO DAILY Qty: 90 0RF levothyroxine 75 mcg tablet 75 mcg PO DAILY Qty: 90 1RF Date of admission: 12/10/24 09:45 Primary Care Provider: Willard Gilbert Admitting Provider: Luis Francois Attending physician on admission: Luis Francois Condition: Stable
[2024-12-17 15:15] VITALS: BP 132/56; PULSE 76; RESP 18; TEMP 36.7; O2SAT 98
[2024-12-17] MEDS: VANCOMYCIN 1,500 MG/NS 500 ML 1,500 MG/500 ML BAG 200 MG IVPB (15:24)
[2024-12-17 16:49] LABS: Glucose Point of Care 193 mg/dl (65-105)
[2024-12-17 20:00] VITALS: PULSE 102; RESP 16; O2SAT 97
[2024-12-17 20:45] VITALS: BP 119/90; PULSE 102; RESP 16; TEMP 36.2; O2SAT 97
[2024-12-17 20:46] LABS: Glucose Point of Care 197 mg/dl (65-105)
== END 2024-12-17 20:45 | DRG 872 ==
LOC: ANHED 13:22 → ANH3MEDSUR 15:28
PROVIDERS: General Practice; Internal Medicine; Internal Medicine Gastroenterology; Admitting Provider Internal Medicine; Emergency Provider Family Medicine; PCP Family Medicine; Visit Provider Internal Medicine
PROC: B24BZZ4 Ultrasonography of Heart with Aorta, Transesophageal (ICD-10-PCS; CPT 93312; principal; 2024-12-13 12:30)
DX: A41.02 Sepsis due to Methicillin resistant Staphylococcus aureus (principal); N39.0 Urinary tract infection, site not specified; L88 Pyoderma gangrenosum; K56.7 Ileus, unspecified; E11.65 Type 2 diabetes mellitus with hyperglycemia; C67.9 Malignant neoplasm of bladder, unspecified; I10 Essential (primary) hypertension; I25.10 Atherosclerotic heart disease of native coronary artery without angina pectoris; F03.90 Unspecified dementia, unspecified severity, without behavioral disturbance, psychotic disturbance, mood disturbance, and anxiety; N40.1 Benign prostatic hyperplasia with lower urinary tract symptoms; N13.9 Obstructive and reflux uropathy, unspecified; M48.062 Spinal stenosis, lumbar region with neurogenic claudication; G47.33 Obstructive sleep apnea (adult) (pediatric); E86.0 Dehydration; E03.9 Hypothyroidism, unspecified; K59.04 Chronic idiopathic constipation; Z95.1 Presence of aortocoronary bypass graft; Z87.891 Personal history of nicotine dependence; Z95.5 Presence of coronary angioplasty implant and graft
CPT/HCPCS: 36415; 36569; 74018; 74177; 80048; 80053; 80202; 81001; 82948; 83605; 85025; 85027; 85610; 87040; 87086; 87181; 87635; 93306; 93312; 93320; 93325; 94003; 96361; 96365; 96367; 96375; 96376; 97110; 97162; 97166; 97530; 97535; 99285; A9270; C1751; G0378; J0696; J1450; J1815; J2003; J2270; J2405; J3010; J3370; J7030; J7040; J7512; Q9967

== ENCOUNTER 2025-01-01 11:02 | Emergency (ER) | payer MEDICARE, SELFPAY ==
[2025-01-01] VITALS (8 sets, daily range): BP systolic 91–104; BP diastolic 53–73; PULSE 96–115; RESP 12–20; TEMP 36.4; O2SAT 95–98
--- NOTE | ~2025-01-01 | CT_ITS ---
EXAMINATION: CT abdomen pelvis w con DATE: 01/01/2025 16:27 INDICATION: Lower abdominal pain TECHNIQUE: Computed tomography (CT) of the abdomen and pelvis was performed with 100 mL Omnipaque-350 intravenous contrast. Automated exposure control and iterative reconstruction technique were employe d. The dose-length product was 1112.48 mGy-cm. COMPARISON: 12/14/2024 FINDINGS: Mild discoid atelectasis at the left lung base. Calcified nodule at the lingula along with calcified left hilar and mediastinal lymph nodes and multiple hepatic and splenic calcific lesions, all consist ent with old granulomatous disease. Heart size is normal. Atherosclerotic coronary artery calcificati ons unchanged prior median sternotomy and coronary artery bypass grafting. There is also and likely c oronary artery stenting. No pericardial or pleural effusion. No change in innumerable cysts replacing essentially entire parenchyma of the pancreas. There are als o a few scattered pancreatic parenchymal calcifications which could represent sequela of chronic panc reatitis. Gallbladder, bilateral adrenal glands and right kidney are normal. 10 cm exophytic cyst wit h minimal peripheral rim calcification arising from the lower pole of the left kidney. Again seen is mild left hydroureteronephrosis extending to the ureterovesicular junction with no evident obstructin g stone or mass. Again seen is extraperitoneal fluid within the fat in the anterior pelvis. There shreyas ears to be a 1 cm diameter defect in the enhancing anterior bladder wall suspicious for bladder perfo ration. Fat and a small amount of the/peritoneal fluid extends into a small direct right inguinal her teagan. There is also a small fat-containing indirect left inguinal hernia. Postoperative change of prio r right hemicolectomy with ileocolic anastomosis in the right abdomen. No bowel obstruction. Moderate lower thoracic spondylosis with bridging osteophytes at multiple levels consistent with diffuse idio pathic skeletal hyperostosis (DISH). IMPRESSION: 1. Persistent extraperitoneal fluid with apparent 1 cm defect in the enhancing anterior bladder wall suspicious for bladder perforation post reported recent transurethral bladder tumor resection. 2. Persistent mild left hydroureteronephrosis without evident obstructing stone or mass which could b e related to outlet obstruction. Reviewed, dictated and finalized at location A. IMPRESSION: 1. Persistent extraperitoneal fluid with apparent 1 cm defect in the enhancing anterior bladder wall suspicious for bladder perforation post reported recent t ransurethral bladder tumor resection. 2. Persistent mild left hydroureteronephrosis without evident obstructing stone or mass which could be related to outlet obstruction.
[2025-01-01 11:15] LABS: Glucose Point of Care 241 mg/dl (65-105)
--- NOTE | 2025-01-01 11:18 | ECG_ITS ---
Test Date: 2025-01-01 11:08:19 Measurements Intervals [place] Rate: 114 P: 0 W[place]: 0 QRS: -38 QRSD: 132 T: 24 QT: 358 QTc: 495 Interpretive Statements ATRIAL FLUTTER/TACHYCARDIA WITH RAPID VENTRICULAR RESPONSE LEFT AXIS DEVIATION RIGHT BUNDLE BRANCH BLOCK INFERIOR INFARCT, AGE INDETERMINATE ABNORMAL ECG No previous ECG available for comparison Electronically Signed On 01-01-2025 14:28:55 CDT by Russell Winston D.O.
[2025-01-01] MEDS: LACTATED RINGERS 1,000 ML 999 ML IV CONT (11:23)
[2025-01-01] MEDS: SODIUM CHLORIDE 0.9% IV 1,000 ML 999 ML IV CONT ×3 (12:06→17:31)
[2025-01-01] MEDS: SODIUM CHLORIDE 0.9% IV 500 ML 999 ML IV CONT (12:06)
[2025-01-01 12:24] LABS: Add Urine Microscopic? YES; Appearance Urine Turbid (Clear); Bacteria Urine 1+ /hpf; Bilirubin Urine Negative (Negative); Blood Urine 2+ (Negative); Color Urine Yellow (Yellow); Glucose Urine UA 3+ mg/dL (Negative); Ketones Urine Negative (Negative); Leukocyte Esterase Ur 3+ LEU/UL (Negative); Need Manual Microscopic Reviewed; Nitrate Urine Negative (Negative); Protein Urine 2+ mg/dL (Negative); RBC Urine 51-100 /hpf (0-2); Squamous Epithelial Cell Urine None Seen /hpf (Few); Urobilinogen Urine 0.2 mg/dL (<2.0); WBC Urine >100 /hpf (0-3); pH Urine 6.5 (5.0-9.0)
--- NOTE | 2025-01-01 12:25 | PC.NURSE ---
RN attempted to gather labs from the patient and was successful other than gather blood cultures. Pao FAULKNER notified who then called phlebotomy to draw labs
--- NOTE | 2025-01-01 12:26 | PC.NURSE ---
multiple attempts at lab draws, three attempts with blood cultures unsuccessful
[2025-01-01 12:31] LABS: Basophils Percent Auto 0.2 % (0.2-1.2); Eosinophils Percent Auto 0.2 % (0-4.4); Hematocrit 30.7 % (42.0-52.0); Hemoglobin 9.9 g/dL (14.0-18.0); Immature Granulocyte Absolute 0.18 K/mm3 (0.00-0.031); Lymphocytes Absolute Auto 0.41 K/mm3 (0.9-3.2); Lymphocytes Percent Auto 2.3 % (18.3-44.2); Mean Corpuscular HGB Conc 32.2 g/dl (32-36); Mean Corpuscular Hemoglobin 28.5 pg (26-34); Mean Corpuscular Volume 88.5 fl (80-100); Monocytes Absolute Auto 0.7 K/mm3 (0.1-0.6); Monocytes Percent Auto 4.1 % (2.6-8.5); Neutrophils Absolute Auto 16.7 K/mm3 (1.3-6.7); Neutrophils Percent Auto 92.2 % (45.5-73.1); Platelet Count Result 179 k/mm3 (150-375); Red Blood Count 3.47 M/mm3 (4.6-6.20); Red Cell Distribution Width 16.8 % (11.5-14.5); White Blood Count 18.1 K/mm3 (4.5-10.0)
--- NOTE | 2025-01-01 12:32 | ED.GENADULT ---
HPI - General Adult General Chief complaint: Syncope Stated complaint: syncope Time Seen by Provider: 01/01/25 11:27 History of Present Illness HPI narrative: Patient is an 84-year-old male who presents ER after having what sounds like a near syncopal episode at his facility. Patient has a left upper extremity PICC line that is not functioning and so he is not received any IV vancomycin for his staph bacteremia for 5 days. Patient is oriented to self and place at times. Chart review shows that he is demented so it is unlikely he is alert orient x4 as reported by the [facility]. Blood pressure in the 90 systolic. Related Data Home Medications ?Medication ?Instructions ?Recorded ?Confirmed ?Last Taken ?Type aspirin 81 mg tablet,delayed 81 mg PO DAILY 08/06/24 12/09/24 12/09/24 History release (Adult Low Dose Aspirin) bacitracin 500 unit/gram topical 1 applic topical BID 08/21/24 12/09/24 12/09/24 History ointment dibucaine 1 % topical ointment 1 applic topical QID PRN Pain of 08/21/24 12/09/24 Unknown History groin ulcer triamcinolone acetonide 0.1 % 1 applic topical DAILY 08/21/24 12/09/24 Unknown History topical cream cholecalciferol (vitamin D3) 50 2,000 unit PO DAILY 12/09/24 12/09/24 Unknown History mcg (2,000 unit) capsule prednisone 20 mg tablet 40 mg PO DAILY 12/09/24 12/09/24 12/09/24 History alendronate 70 mg tablet 70 mg PO WEEKLY 12/10/24 12/10/24 12/03/24 History Allergies Allergy/AdvReac Type Severity Reaction Status Date / Time finasteride Allergy Intermediate Hives Verified 08/21/24 07:58 JOSHUA Inhibitors Allergy Unknown Cough Verified 08/21/24 07:58 ARB-Angiotensin Receptor Allergy Unknown Cough Verified 08/21/24 07:58 Antagonist lisinopril Allergy Unknown Cough Verified 08/21/24 07:58 Review of Systems Review of Systems: ROS unobtainable: Yes unobtainable due to mental status PMFSH Past Medical History Medical History (Updated 01/01/25 @ 18:30 by Jim Hale MD) Chronic pain 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 The patient's was told that he no longer needed CPAP Surgical History Surgical History History of colon surgery Cholesteatoma of attic of left ear History of coronary artery stent placement (~2014) X2 or 3 History of skin graft With skin flap History of biopsy Incisional biopsies nonhealing wound buttocks 02/02/2022 History of incision and drainage i&d pilonidal cyst 09/06/21 Hx of CABG (~2003) 2 vessel MASSEY to LAD saphenous vein graft to obtuse marginal Family History Family History Sibling Carcinoma of colon Family history of diabetes mellitus in first degree relative Family history of coronary artery disease Family history of malignant neoplasm of breast in first degree relative Father Family history of coronary artery disease Mother , pneumonia Pneumonia Other Diabetes mellitus Family history of arthritis Family history of congenital heart disease Family history of heart disease in male family member before age 55 Family history of malignant neoplasm Social History Social History Social History: The patient lives with his of over 40 years. He has 2 biologic children and 1 stepchild. 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 He has a distant history of smoking 20 pack per year. He quit smoking in the in then chewed tobacco for another 10 years and quit in 1991. He used to drink a few alcoholic beverages a month but only rarely drinks alcohol now. Code status: DNR/DNI Healthcare power of deputy commonwealth's attorney: Smoking packs per day: 2.5 Smoking cigarettes per day: 50.0 Years smoked: 10 Smoking pack-years: 25.00 Smoking status: Former smoker Second hand tobacco smoke exposure: Yes Alcohol intake: current Drinks per week: 1 Alcohol use details: socially Substance use: never Substance use type: does not use Do You Feel Safe in your Home?: Yes Lack of Transportation: No Lack of Food: Never True Current Housing: I Have Housing Concerned About Future Housing: No Difficulty Paying Gas/Electric Bills: No Difficulty Paying for Meds: No Currently Unemployed: No Education: Master's Degree or Higher Difficulty w/ Childcare or Family Care: No Living arrangements: with family Additional living arrangements comments: lives with Occupation/Education: retired 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 HEAD: Normocephalic, atraumatic. EYES: PERRL and EOMI. ENT: Mucous membranes moist. CHEST: Clear to auscultation. No respiratory distress. HEART: Regular rate and rhythm. Normal peripheral pulses. ABDOMEN: Soft, bilateral lower quadrant abdominal tenderness with guarding, nondistended. EXTREMITIES: Normal range of motion. No edema. SKIN: Warm, dry, no rash. NEURO: Alert and oriented x 1-2. Course Course Emergency Course: Patient aggressively volume resuscitated with 30 milliliters/kilogram of IV fluid plus an additional L of fluid. His blood pressure is maintaining a map of 70 mmHg. Current blood pressure 104/56 mmHg. No longer tachycardic. He has brisk capillary refill. He wakes up and speaks to his family. 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 He did receive ceftriaxone but will now receive 1 g of vancomycin IV. Patient has been accepted to the ER at [facility] where he had his previous transurethral resection of the bladder performed. There appears to be bladder wall perforation as well as extraperitoneal fluid collections that may require IR drainage. Urology also consulted. Vital Signs Vital signs: Vital Signs Temperature 97.5 F L 01/01/25 11:04 Pulse Rate 115 H 01/01/25 11:04 Respiratory Rate 13 01/01/25 11:04 Blood Pressure 101/53 L 01/01/25 11:04 Pulse Oximetry 98 01/01/25 11:04 Oxygen Delivery Room Air 01/01/25 11:04 Temperature 97.5 F L 01/01/25 11:04 Pulse Rate 100 01/01/25 16:47 Respiratory Rate 12 01/01/25 16:47 Blood Pressure 102/59 L 01/01/25 16:47 Pulse Oximetry 95 01/01/25 16:47 Oxygen Delivery Room Air 01/01/25 11:04 Medical Decision Making Vital Signs Vital Signs: Vital Signs Temperature 97.5 F L 01/01/25 11:04 Pulse Rate 115 H 01/01/25 11:04 Respiratory Rate 13 01/01/25 11:04 Blood Pressure 101/53 L 01/01/25 11:04 Pulse Oximetry 98 01/01/25 11:04 Oxygen Delivery Room Air 01/01/25 11:04 Temperature 97.5 F L 01/01/25 11:04 Pulse Rate 100 01/01/25 16:47 Respiratory Rate 12 01/01/25 16:47 Blood Pressure 102/59 L 01/01/25 16:47 Pulse Oximetry 95 01/01/25 16:47 Oxygen Delivery Room Air 01/01/25 11:04 Lab Data 01/01/25 12:22 01/01/25 12:22 Labs: Lab Results 01/01/25 01/01/25 01/01/25 Range/Units 11:12 12:05 12:22 WBC 18.1 H (4.5-10.0) K/mm3 RBC 3.47 L (4.6-6.20) M/mm3 Hgb 9.9 L (14.0-18.0) g/dL Hct 30.7 L (42.0-52.0) % MCV 88.5 (80-100) fl MCH 28.5 (26-34) pg MCHC 32.2 (32-36) g/dl RDW 16.8 H (11.5-14.5) % Plt Count 179 (150-375) k/mm3 MPV 10.0 (7.4-10.4) fl Immature Gran % (Auto) 1.0 H (0-0.5) % Neut % (Auto) 92.2 H (45.5-73.1) % Lymph % (Auto) 2.3 L (18.3-44.2) % [place] % (Auto) 4.1 (2.6-8.5) % Eos % (Auto) 0.2 (0-4.4) % Baso % (Auto) 0.2 (0.2-1.2) % Lymph # (Auto) 0.41 L (0.9-3.2) K/mm3 [place] # (Auto) 0.7 H (0.1-0.6) K/mm3 Eos # (Auto) 0.0 (0-0.3) K/mm3 Baso # (Auto) 0.0 (0.0-0.1) K/mm3 Abs Immat Gran (auto) 0.18 H (0.00-0.031) K/mm3 Absolute Neuts (auto) 16.7 H (1.3-6.7) K/mm3 Absolute Nucleated RBC 0.000 (0.0-0.012) K/mm3 Nucleated RBC % 0.0 (0.0-0.2) % Sodium 134 L (137-145) mmol/L Potassium 4.1 (3.4-5.0) mmol/L Chloride 104 (98-107) mmol/L Carbon Dioxide 22 (22-30) mmol/L Anion Gap 8 (4-12) mmol/L BUN 30 H (9-20) mg/dL Creatinine 1.05 (0.7-1.3) mg/dL Estim Creat Clear Calc 54 ml/min Estimated GFR > 60 (59 - ) Glucose 240 H (65-110) mg/dL POC Capillary Glucose 241 H (65-105) mg/dl Lactic Acid 3.9 H (0.7-2.0) mmol/L Calcium 9.1 (8.4-10.2) mg/dL Total Bilirubin 0.8 (0.2-1.3) mg/dL AST 19 (17-59) U/L ALT 24 (6-50) U/L Alkaline Phosphatase 74 (38-126) U/L Total Protein 5.4 L (6.3-8.2) g/dL Albumin 2.6 L (3.5-5.1) g/dL Urine Color Yellow (Yellow) Urine Appearance Turbid H (Clear) Urine pH 6.5 (5.0-9.0) Ur Specific [place] 1.020 (1.001-1.035) Urine Protein 2+ H (Negative) mg/dL Urine Glucose (UA) 3+ H (Negative) mg/dL Urine Ketones Negative (Negative) mg/dL Ur Blood (Man) 2+ H (Negative) Urine Nitrate Negative (Negative) Urine Bilirubin Negative (Negative) Urine Urobilinogen 0.2 (<2.0) mg/dL Add Ur Microanalysis Reviewed Leukocyte Esterase Rfl 3+ H (Negative) JUAN FRANCISCO/UL Urine RBC 51-100 H (0-2) /hpf Urine WBC >100 H (0-3) /hpf Ur Squamous Epith Cells None seen (Few) /hpf Urine Bacteria 1+ H /hpf Urine Casts 3-5 06/25/25 Range/Units 15:34 WBC (4.5-10.0) K/mm3 RBC (4.6-6.20) M/mm3 Hgb (14.0-18.0) g/dL Hct (42.0-52.0) % MCV (80-100) fl MCH (26-34) pg MCHC (32-36) g/dl RDW (11.5-14.5) % Plt Count (150-375) k/mm3 MPV (7.4-10.4) fl Immature Gran % (Auto) (0-0.5) % Neut % (Auto) (45.5-73.1) % Lymph % (Auto) (18.3-44.2) % [place] % (Auto) (2.6-8.5) % Eos % (Auto) (0-4.4) % Baso % (Auto) (0.2-1.2) % Lymph # (Auto) (0.9-3.2) K/mm3 [place] # (Auto) (0.1-0.6) K/mm3 Eos # (Auto) (0-0.3) K/mm3 Baso # (Auto) (0.0-0.1) K/mm3 Abs Immat Gran (auto) (0.00-0.031) K/mm3 Absolute Neuts (auto) (1.3-6.7) K/mm3 Absolute Nucleated RBC (0.0-0.012) K/mm3 Nucleated RBC % (0.0-0.2) % Sodium (137-145) mmol/L Potassium (3.4-5.0) mmol/L Chloride (98-107) mmol/L Carbon Dioxide (22-30) mmol/L Anion Gap (4-12) mmol/L BUN (9-20) mg/dL Creatinine (0.7-1.3) mg/dL Estim Creat Clear Calc ml/min Estimated GFR (59 - ) Glucose (65-110) mg/dL POC Capillary Glucose (65-105) mg/dl Lactic Acid 2.8 H (0.7-2.0) mmol/L Calcium (8.4-10.2) mg/dL Total Bilirubin (0.2-1.3) mg/dL AST (17-59) U/L ALT (6-50) U/L Alkaline Phosphatase (38-126) U/L Total Protein (6.3-8.2) g/dL Albumin (3.5-5.1) g/dL Urine Color (Yellow) Urine Appearance (Clear) Urine pH (5.0-9.0) Ur Specific [place] (1.001-1.035) Urine Protein (Negative) mg/dL Urine Glucose (UA) (Negative) mg/dL Urine Ketones (Negative) mg/dL Ur Blood (Man) (Negative) Urine Nitrate (Negative) Urine Bilirubin (Negative) Urine Urobilinogen (<2.0) mg/dL Add Ur Microanalysis Leukocyte Esterase Rfl (Negative) JUAN FRANCISCO/UL Urine RBC (0-2) /hpf Urine WBC (0-3) /hpf Ur Squamous Epith Cells (Few) /hpf Urine Bacteria /hpf Urine Casts Imaging Data Radiologist's impression: ITS Impressions Abdomen/Pelvis CT 01/01/25 16:53 IMPRESSION: 1. Persistent extraperitoneal fluid with apparent 1 cm defect in the enhancing anterior bladder wall suspicious for bladder perforation post reported recent transurethral bladder tumor resection. 2. Persistent mild left hydroureteronephrosis without evident obstructing stone or mass which could be related to outlet obstruction. ECG Data EKG #1: ECG completion date: 01/01/25 ECG completion time: 11:08 EKG Interpretation: tachycardia (14), sinus rhythm, non-specific ST changes, RBBB and left axis Critical Care Time Critical Care Time Critical Care Time: Yes Total Critical Care Time: 35 Discharge Plan Discharge Clinical Impression: Sepsis, Acute UTI, Perforation of bladder Patient Disposition: Acute Care Hospital Condition: Stable Patient Language: Luxembourgish Prescriptions: No Action nitroglycerin 0.4 mg tablet, sublingual 0.4 mg SUBLINGUAL Q5M PRN (Reason: chest pain) Qty: 25 0RF Rx Instructions: until response; do not exceed 3 doses per episode aspirin [Adult Low Dose Aspirin] 81 mg tablet,delayed release (DR/EC) 81 mg PO DAILY bacitracin 500 unit/gram ointment 1 applic topical BID Patient Comments: from director business integration triamcinolone acetonide 0.1 % cream 1 applic topical DAILY Patient Comments: from director business integration dibucaine 1 % ointment 1 applic topical QID PRN (Reason: Pain of groin ulcer) Patient Comments: from director business integration prednisone 20 mg tablet 40 mg PO DAILY Patient Comments: for 14 days cholecalciferol (vitamin D3) 50 mcg (2,000 unit) capsule 2,000 unit PO DAILY alendronate 70 mg tablet 70 mg PO WEEKLY Patient Comments: pt takes on TUESDAYS amoxicillin-pot clavulanate 875-125 mg tablet 1 tablet PO Q12H 8 Days Qty: 16 0RF Saccharomyces boulardii [Florastor] 250 mg Capsule 250 mg PO TID 30 Days Qty: 90 0RF vancomycin 1.5 gram Recon Soln 1,500 mg IV Q24H 35 Days Qty: 52.5 0RF nystatin 100,000 unit/gram powder 1 applic topical BID Qty: 30 0RF nystatin 100,000 unit/gram cream 1 applic topical BID Qty: 30 0RF donepezil [Aricept] 5 mg tablet 5 mg PO QHS Qty: 30 3RF amlodipine 5 mg tablet 5 mg PO DAILY Qty: 90 1RF metoprolol succinate 50 mg tablet extended release 24 hr 50 mg PO DAILY Qty: 90 1RF doxazosin 2 mg tablet See Rx Instructions .ROUTE .COMPLEX Qty: 90 1RF Dose Instruction: TAKE 1 TABLET BY MOUTH EVERY DAY AT BEDTIME Rx Instructions: TAKE 1 TABLET BY MOUTH EVERY DAY AT BEDTIME Jardiance 25 mg tablet 25 mg PO QAM Qty: 90 1RF metformin 500 mg tablet extended release 24 hr See Rx Instructions .ROUTE .COMPLEX Qty: 360 0RF Dose Instruction: TAKE 4 TABLETS BY MOUTH ONCE DAILY IN THE MORNING Rx Instructions: TAKE 4 TABLETS BY MOUTH ONCE DAILY IN THE MORNING rosuvastatin 40 mg tablet 40 mg PO DAILY Qty: 90 3RF glimepiride 1 mg tablet 1 mg PO QAM Qty: 90 1RF Rx Instructions: administer with breakfast meloxicam 15 mg tablet See Rx Instructions .ROUTE .COMPLEX Qty: 90 1RF Dose Instruction: Take 1 tablet by mouth once daily Rx Instructions: Take 1 tablet by mouth once daily dutasteride 0.5 mg capsule 0.5 mg PO DAILY Qty: 90 0RF levothyroxine 75 mcg tablet 75 mcg PO DAILY Qty: 90 1RF fluticasone propionate [Flonase Allergy Relief] 50 mcg/actuation spray,suspension 1 spray intranasal DAILY Qty: 16 0RF Rx Instructions: administer to wound daily hydrocodone-acetaminophen 5-325 mg tablet 1 tablet PO Q8H PRN (Reason: pain) Qty: 30 0RF Follow-up/Referrals: Willard Gilbert MD [Primary Care Provider] -
[2025-01-01 12:51] LABS: Alanine Aminotransferase 24 U/L (6-50); Albumin Level 2.6 g/dL (3.5-5.1); Alkaline Phosphatase 74 U/L (38-126); Anion Gap 8 mmol/L (4-12); Aspartate Amino Transferase 19 U/L (17-59); Bilirubin,Total 0.8 mg/dL (0.2-1.3); Blood Urea Nitrogen 30 mg/dL (9-20); Calcium 9.1 mg/dL (8.4-10.2); Carbon Dioxide 22 mmol/L (22-30); Chloride 104 mmol/L (98-107); Estimated CRCL calculation 54 ml/min; Estimated Glomerular Filt Rate > 60; Glucose 240 mg/dL (65-110); Lactic Acid Reflex 3.9 mmol/L (0.7-2.0); Potassium 4.1 mmol/L (3.4-5.0); Sodium 134 mmol/L (137-145); Total Protein 5.4 g/dL (6.3-8.2)
--- NOTE | 2025-01-01 13:18 | PC.NURSE ---
Phlebotomy was able to draw one set of cultures and states pt became agitated, she plans to send someone to draw the second set.
[2025-01-01 14:37] LABS: Reflex Lactic Acid Yes or No Add Lactic
[2025-01-01] MEDS: MORPHINE SULFATE (*CRX) 4 MG/ML INJ 2 MG IV PUSH (15:29)
--- NOTE | 2025-01-01 15:33 | PC.NURSE ---
2nd set of blood cultures obtained by LUCIE Manzo, prior to admin of ceftriaxone.
[2025-01-01 15:49] LABS: Lactic Acid 2.8 mmol/L (0.7-2.0)
[2025-01-01 18:57] LABS: Vancomycin Random 6.5 ug/mL (10-20)
--- NOTE | 2025-01-01 18:58 | PC.NURSE ---
No answer from Lidia ivy for update on patient care, left josee on voicemail
== END 2025-01-01 18:53 | disposition short-term general hospital (02) ==
PROVIDERS: Emergency Provider Emergency Medicine; PCP Family Medicine
DX: A41.9 Sepsis, unspecified organism (principal); N39.0 Urinary tract infection, site not specified; N32.89 Other specified disorders of bladder; Z79.82 Long term (current) use of aspirin; E11.9 Type 2 diabetes mellitus without complications; F03.90 Unspecified dementia, unspecified severity, without behavioral disturbance, psychotic disturbance, mood disturbance, and anxiety; I10 Essential (primary) hypertension; I25.10 Atherosclerotic heart disease of native coronary artery without angina pectoris; G47.33 Obstructive sleep apnea (adult) (pediatric); Z87.891 Personal history of nicotine dependence
CPT/HCPCS: 36415; 74177; 80053; 80202; 81001; 82948; 83605; 85025; 87040; 87086; 93005; 96361; 96365; 96375; 99285; J0696; J2270; J7030; J7040; J7120; Q9967

== ENCOUNTER 2025-01-12 14:53 | Inpatient (IN) | payer MEDICARE, SELFPAY ==
--- NOTE | ~2025-01-12 | CT_ITS ---
CT chest abdomen pelvis w con Ordering provider: Maura Eisenberg PA-C History: 85 years Male with . Follow up with abdominal abscess . Comparison: January 15, 2025 Technique: CT chest with IV contrast. CT abdomen and pelvis CT abdomen and pelvis with IV and with or al contrast. Radiation reduction technique utilized. The dose-length product was 1138.24 mGy-cm. 100 mL Omnipaque 350 was given IV. FINDINGS: CHEST: --VISUALIZED THORACIC INLET: Normal. --MEDIASTINUM: Aorta/coronary arteries: Mild atheromatous disease. Heart/other: The heart is not enlarged. Lymph nodes: No mediastinal or hilar adenopathy. Postoperative changes in the mediastinum. --LUNGS: Bilateral pleural effusion with adjacent atelectasis versus pneumonia. Minimal atelectasis v ersus pneumonia in the lingula. No pulmonary nodules or masses. No pneumothorax. --MUSCULOSKELETAL: Soft tissues: The superficial soft tissues are normal. Bones: Age appropriate degenerative changes of the spine. No suspicious bony lytic or sclerotic lesio ns. ABDOMEN/PELVIS: --MUSCULOSKELETAL: Bones: Age appropriate degenerative changes of the spine. Bilateral hip osteoarthritic changes. Bilat eral sacroiliitis. Pubic symphysitis. Superficial soft tissues: Bilateral fat containing inguinal hernias. Otherwise, The superficial soft tissues are normal. --UPPER ABDOMINAL ORGANS: Liver: Normal. Gallbladder: Distended with no definite stones. Spleen: Normal. Stomach/duodenum: Normal. Pancreas: Polycystic pancreas. Adrenals: Normal. Kidneys: Dilated left pelvicalyceal system and ureter with no definite stones. Large cyst in the left kidney with calcification unchanged. --PELVIC ORGANS: The bladder shows thickened wall with Nuñez's catheter. Abscess seen anterior to the urinary bladder which measures 2.1 x 4.7 cm which is slightly smaller than the previous examination. Another smaller abscess is also seen in the area measuring 3.1 cm. Another smaller abscess is also s een measuring 2.2 cm. Another abscess seen posterior to the rectus which measures 3.3 cm. Adjacent fa t stranding is seen in the area. No bladder stones. --BOWEL AND MESENTERY: Colon: No evidence of diverticulitis. Fecal material is impacted in the rectum. Minimal fluid is seen in the presacral area. Fecal material loaded in the colon suggestive of constipation. Appendix is no t demonstrated. Small Bowel: Normal. No obstruction. Peritoneum/mesentery: No free air or free fluid. No mesenteric lymphadenopathy. --RETROPERITONEUM: Mild atheromatous disease of the abdominal aorta. No retroperitoneal lymphadenop athy. IMPRESSION: CHEST: 1. Bilateral large pleural effusion with adjacent atelectasis versus pneumonia 2. Atelectasis versus pneumonia in the lingula.. ABDOMEN/PELVIS: 1. No evidence of appendicitis, diverticulitis or intestinal obstruction. 2. Multiple abscess anterior to the urinary bladder with minimal change since previous examination. Thickened wall of the urinary bladder with possible perforation. 3. Polycystic pancreas. 4. Left hydronephrotic changes and left renal cyst. 5. Constipation. 6. Bilateral inguinal fat containing hernia. 7. Distended gallbladder with no definite stones. Reviewed, dictated and finalized at location A. IMPRESSION: CHEST: 1. Bilateral large pleural effusion with adjacent atelectasis versus pneumonia 2. Atelectasis versus pneumonia in the lingula.. ABDOMEN/PELVIS: 1. No evidence of appendicitis, diverticulitis or intestinal obstruction. 2. Multiple abscess anterior to the urinary bladder with minimal change since previous examination. Thickened wall of the urinary bladder with possible perfo ration. 3. Polycystic pancreas. 4. Left hydronephrotic changes and left renal cyst. 5. Constipation. 6. Bilateral inguinal fat containing hernia. 7. Distended gallbladder with no definite stones.
--- NOTE | ~2025-01-12 | CT_ITS ---
EXAMINATION: CTA chest PE protocol DATE: 01/12/2025 16:34 INDICATION: Chest pain, shortness of breath TECHNIQUE: Computed tomography angiography (CTA) of the chest was performed with 100 mL Omnipaque-350 intravenous contrast timed to evaluate the pulmonary arteries. Coronal maximum intensity projection 3D-reconstructions were created by the technologist. The dose-length product (DLP) was 742.33 mGy-cm. Automated exposure control and iterative reconstruction technique were employed. COMPARISON: CT abdomen pelvis 12/14/2024, 01/01/2025. FINDINGS: Lung parenchyma and airways: Bilateral dependent consolidation. 4 mm right upper lobe nodule. Patent airways. Pleura: Trace right and small left pleural fluid collections. Thoracic inlet, axillae and chest wall: Unremarkable. Thoracic aorta: Moderate atherosclerotic calcification. Mild ascending thoracic aortic ectasia. Mediastinum: Normal. Heart and pericardium: Cardiomegaly. RV LV ratio 1.3. Bowing of the interventricular septum. No peric ardial effusion. Status post CABG. Coronary artery calcifications: Moderate. Upper abdomen: Distended gallbladder. Innumerable pancreatic cysts, with scattered punctate calcifica tions. Bones: No acute osseous finding. Pulmonary arteries: Study quality: Adequate. Nonocclusive segmental and subsegmental right upper lobe emboli. Nonocclusive embolus in the distal main pulmonary artery extending into segmental and subseg mental branches of the right middle lobe and right lower lobe. Segmental and subsegmental nonocclusiv e left lower lobe emboli. IMPRESSION: Multiple pulmonary emboli, large clot burden, and evidence of right heart strain. Trace right and small left pleural effusions. 4 mm right upper lobe pulmonary nodule, consider an optional follow-up low-dose noncontrast CT of the chest in one year if the patient is at high risk. Gallbladder hydrops, likely secondary to fasting the absence of right upper quadrant pain or biliary labs abnormalities. Innumerable pancreatic cysts, which may represent the sequela of chronic pancreatitis, or less likely the uncommon diagnosis of isolated polycystic pancreatic disease. Correlate for pancreatic enzyme ab normalities and any symptoms of vague abdominal pain. Consider nonemergent MRI of the pancreas if the re are abdominal symptoms. Results reported telephonically to Dr. Haque by Dr. Barry at 5:19 PM on 01/12/2025. Reviewed, dictated and finalized at location K. IMPRESSION: Multiple pulmonary emboli, large clot burden, and evidence of right heart strai n. Trace right and small left pleural effusions. 4 mm right upper lobe pulmonary nodule, consider an optional follow-up low-dose noncontrast CT of the chest in one year if the patient is at high risk. Gallbladder hydrops, likely secondary to fasting the absence of right upper berto drant pain or biliary labs abnormalities. Innumerable pancreatic cysts, which may represent the sequela of chronic pancre atitis, or less likely the uncommon diagnosis of isolated polycystic pancreatic disease. Correlate for pancreatic enzyme abnormalities and any symptoms of vag ue abdominal pain. Consider nonemergent MRI of the pancreas if there are abdomi nal symptoms. Results reported telephonically to Dr. Haque by Dr. Barry at 5:19 PM on 01/12/2025.
--- NOTE | ~2025-01-12 | CT_ITS ---
CT abdomen pelvis w con Ordering provider: Kiara Fox APRN History: 85 years Male with . Increased abdominal pain, hx bladder perf . Comparison: January 01, 2025 Technique: CT abdomen and pelvis with IV and without oral contrast. Automated exposure control and it erative reconstruction technique were employed. The dose-length product was 1053.15 mGy-cm. 100 mL Om nipaque 350 was given IV. Findings: VISUALIZED LOWER CHEST: Bilateral pleural effusion more on the left side with adjacent atelectasis. A telectasis is seen in the lingula posteriorly UPPER ABDOMINAL ORGANS: Liver: Hepatomegaly. Gallbladder: Distended with no stones. Spleen: Normal. Stomach/duodenum: Normal. Pancreas: Normal. Adrenals: Multiple cysts are seen in the pancreas which are unchanged from previous examination. Kidneys: Cyst measuring 10.3 x 8.6 cm is seen in the left kidney lower pole. Minimal calcification se en posteriorly in the cyst. Slight dilatation of the left ureter is noted.. PELVIC ORGANS: Diffuse abnormal wall thickening of the bladder suggesting cystitis. No bladder stone Nuñez's catheter is seen in the bladder. Collection seen anterior to the urinary bladder measuring 2. 4 x 5.7 cm with air bubbles suggestive of abscess. Another one is seen posterior to the left rectus m uscle measuring 4.2 x 1.8 cm suggestive of abscesses. Other smaller abscesses are seen adjacent to th precious areas BOWEL AND MESENTERY: Colon: No evidence of diverticulitis. The colon is loaded with fecal material.. Status post appendect mike. Small Bowel: Normal. No obstruction. Peritoneum/mesentery: No free air. Minimal free fluid in the pelvis and both paracolic gutter. No mes enteric lymphadenopathy. RETROPERITONEUM: Moderate atheromatous disease of the abdominal aorta. No retroperitoneal lymphaden opathy. MUSCULOSKELETAL: Superficial soft tissues: Right inguinal fat containing hernia. Left inguinal fat containing hernia. enhancing area is seen in the right inguinal hernia which may represent an abscess measuring 2.5 x 2 cm. Otherwise, The superficial soft tissues are normal. Bones: Age appropriate degenerative changes of the spine. Bilateral hip osteoarthritic changes. IMPRESSION: 1. Multiple abscesses seen anterior to the urinary bladder. 2. Thickened wall of the gallbladder suggestive of cystitis. 3. Free fluid seen in the pelvis and paracolic gutters. 4. Left hydronephrotic changes with no definite stones. 5. Constipation. 6. Bilateral pleural effusion with adjacent atelectasis. 7. Large left renal cyst. 8. Polycystic pancreas. 9. Bilateral fat containing inguinal hernias. Reviewed, dictated and finalized at location A.
[2025-01-12 15:01] VITALS: BP 106/70; PULSE 110; RESP 19; TEMP 36.4; O2SAT 99
[2025-01-12 15:08] VITALS: O2SAT 99
[2025-01-12 15:40] LABS: Hematocrit 25.0 % (42.0-52.0); Hemoglobin 7.9 g/dL (14.0-18.0); Immature Granulocyte Percent A 0.8 % (0-0.5); Lymphocytes Absolute Auto 1.16 K/mm3 (0.9-3.2); Mean Corpuscular HGB Conc 31.6 g/dl (32-36); Mean Corpuscular Hemoglobin 28.1 pg (26-34); Mean Corpuscular Volume 89.0 fl (80-100); Nucleated Red Blood Cells Absolute Auto 0.020 K/mm3 (0.0-0.012); Nucleated Red Blood Cells Perc 0.2 % (0.0-0.2); Platelet Count Result 106 k/mm3 (150-375); Red Blood Count 2.81 M/mm3 (4.6-6.20); White Blood Count 12.1 K/mm3 (4.5-10.0)
--- OUTSIDE RECORDS SUMMARY | 2025-01-12 15:40 | XMS_ITS | Clinical Summary ---
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 2022 Active metFORMIN XR (GLUCOPHAGE XR) 500 mg 24 hr tabletIndicatio ns:type 2 diabetes mellitus Take 4 tablets (2,000 mg total) by mouth every morning 2022 Active dutasteride (AVODART) 0.5 mg capsuleIndicati ons:benign prostatic hyperplasia with lower urinary tract sx Take 1 capsule (0.5 mg total) by mouth every morning 2022 Active senna-docusate (PERICOLACE) 8.6-50 mgIndications:c onstipation Take 2 tablets by mouth 2 (two) [...] Informant: Self, Spouse/Significant Other, Reported on 11/27/2024 donepeziL (ARICEPT) 5 mg tabletIndicatio ns:memory Take 1 tablet (5 mg total) by mouth nightly 2023 Active dibucaine (NUPERCAINAL) 1 % ointmentIndicat ions:Tip of the penis pain Apply topically as needed (For tip of the penis pain) 30 g 2023 Active loratadine (CLARITIN) 10 mg tabletIndicatio ns:Allergic Rhinitis Take 1 tablet (10 mg total) by mouth as needed for allergies Acti ve alendronate (FOSAMAX) 70 mg tabletIndicatio ns:Osteoporosis in Male Patient Take 1 tablet (70 mg total) by mouth every 7 days Take in the morning with a full glass of water, on an empty stomach, and do not take anything else by mouth or lie down for the next 30 min. 4 tablet 1 01/17 Active ibuprofen (ADVIL,MOTRIN) 400 mg tabletIndicatio ns:Pain Take 1 tablet (400 mg total) by mouth every 6 (six) hours as needed for pain 20 tablet 2024 Active phenazopyridine (PYRIDIUM) 100 mg tabletIndicatio ns:Dysuria Take 1 tablet (100 mg total) by mouth 3 (three) times a day as needed for urinary pain 15 tablet 2024 Active trospium XR (SANCTURA XR) 60 mg capsule,extende d release 24hrIndications :Bladder Hyperactivity Take 1 capsule (60 mg total) by mouth daily as needed (bladder spasms) 7 capsule 2024 Active acetaminophen (TYLENOL) 500 mg tablet Take 2 tablets (1,000 mg total) by mouth every 6 (six) hours as needed for pain 90 tablet 2024 Active metoprolol XL (TOPROL-XL) 25 mg extended release tablet Take 1 tablet (25 mg total) by mouth daily 30 tablet 11 01/10 Active predniSONE (DELTASONE) 10 mg tablet Take 1 tablet (10 mg) by mouth daily for 2 days 2 tablet 01/12 Active calcium carbonate-vitam in D3 1,250mg (500mg elemental) - 5 mcg (200 units) per tablet Take 1 tablet by mouth daily 30 tablet 11 01/10 Active insulin lispro (HumaLOG, ADMELOG) 100 unit/mL pen for injection Inject 3 Units under the skin 3 (three) times a day with meals 15 mL 2024 Active apixaban (ELIQUIS) 5 mg tabletIndicatio ns:deep venous thrombosis,PE Take 2 tablets (10 mg total) by mouth 2 (two) times a day for 6 days, THEN 1 tablet (5 mg total) 2 (two) times a day. 204 tablet 04/15 Active linezolid (ZYVOX) 600 mg tabletIndicatio ns:Abdominal/Pe lvic Infection,Blood Stream/Endovasc ular Infection,Urina ry Tract/Genitouri nary Infection Take 1 tablet (600 mg total) by mouth 2 (two) times a day for 9 doses 9 tablet 07/03/ 2025 07/08 /[address] (PROTONIX) 40 mg EC tabletIndicatio ns:Stress Ulcer Prophylaxis Take 1 tablet (40 mg total) by mouth daily 30 tablet 11 01/10 Active polyethylene glycol (MIRALAX) 17 gram/dose bulk powderIndicatio ns:constipation Take 17 g by mouth daily 1530 g 2024 Active oxyCODONE (ROXICODONE) 5 mg immediate release tabletIndicatio ns:Pain Take 1 tablet (5 mg total) by mouth every 6 (six) hours as needed for pain for up to 7 days 28 tablet 01/16 Active metoprolol XL (TOPROL XL) 50 mg 24 hr tablet Take 1 tablet by mouth daily 90 each 4 01/09 Discontinued( Stop Taking at Discharge) meloxicam (MOBIC) 15 mg tabletIndicatio ns:Osteoarthrit is Take 1 tablet (15 mg total) by mouth every morning 01/09 Discontinued( Stop Taking at Discharge) Jardiance 25 mg tabletIndicatio ns:type 2 diabetes mellitus Take 1 tablet (25 mg total) by mouth every morning 01/09 Discontinued( Stop Taking at Discharge) glimepiride (AMARYL) 1 mg tabletIndicatio ns:type 2 diabetes mellitus Take 1 tablet (1 mg total) by mouth daily before breakfast 01/09 Discontinued( Stop Taking at Discharge) amLODIPine (NORVASC) 5 mg tabletIndicatio ns:hypertension Take 1 tablet (5 mg total) by mouth every morning 01/09 Discontinued( Stop Taking at Discharge) triamcinolone (KENALOG) 0.1 % creamIndication s:Skin Inflammation Apply topically daily Apply to the left groin 80 g 2 01/09 Discontinued( Stop Taking at Discharge) ciprofloxacin-d exAMETHasone (CIPRODEX) otic suspensionIndic ations:ear infection Administer 4 drops into the left ear 2 (two) times a day 01/09 Discontinued( Stop Taking at Discharge) predniSONE (DELTASONE) 20 mg tabletIndicatio ns:Pyoderma gangrenosum (HCC) Take 3 pills (60mg) once in the morning x 14 days, then 2 pills (40 mg ) once in AM x 14 days, then 1 pill (20mg) once in AM x 14 days 84 tablet 01/09 Discontinued( Stop Taking at Discharge) acetaminophen (TYLENOL) 500 mg tablet Take 2 tablets (1,000 mg total) by mouth every 6 (six) hours 30 tablet 01/09 Discontinued Active Problems Problem Noted Date Diagnosed Date Electrolyte abnormality 01/06/2025 Assessment & Plan (01/09/2025 8:41 AM CDT): Low K and mag, possibly refeeding syndrome. - Daily mag, BMP, phos - Replete as needed Assessment & Plan (01/08/2025 8:18 AM CDT): Low K and mag, possibly refeeding syndrome. - Daily mag, BMP, phos - Replete as needed Assessment & Plan (01/07/2025 8:01 AM CDT): Low K and mag, possibly refeeding syndrome. - Daily mag, BMP, phos - Replete as needed Assessment & Plan (01/06/2025 5:43 PM CDT): Low K and mag, possibly refeeding syndrome. - Daily mag, BMP, phos - Replete as needed Anemia 01/06/2025 Assessment & Plan (01/09/2025 8:41 AM CDT): Hgb dropped 2 pts from 01/04 to 01/06 (10.4 -> 8.5). Iron studies consistent with anemia of chronic disease, but also on heparin gtt. - Be alert for signs of bleeding - Consent for blood tx obtained and T&S ordered 01/06 - CTM Assessment & Plan (01/08/2025 8:18 AM CDT): Hgb dropped 2 pts from 01/04 to 01/06 (10.4 -> 8.5). Iron studies consistent with anemia of chronic disease, but also on heparin gtt. - Be alert for signs of bleeding - Consent for blood tx obtained and T&S ordered 01/06 - CTM Assessment & Plan (01/07/2025 8:01 AM CDT): Hgb dropped 2 pts from 01/04 to 01/06 (10.4 -> 8.5). Iron studies consistent with anemia of chronic disease, but also on heparin gtt. - Be alert for signs of bleeding - Consent for blood tx obtained and T&S ordered 01/06 - CTM Assessment & Plan (01/06/2025 5:43 PM CDT): Hgb dropped 2 pts from 01/04 to 01/06 (10.4 -> 8.5). Iron studies consistent with anemia of chronic disease, but also on heparin gtt. - Be alert for signs of bleeding - Consent for blood tx obtained and T&S ordered 01/06 - CTM A-fib 01/05/2025 Assessment & Plan (01/09/2025 8:41 AM CDT): Noted on physical exam 01/04, and confirmed on tele. - Continue heparin gtt - May require intermediate AC beyond that which is needed acute DVTs - Adequate rate control at this time on metoprolol XL 25mg - dc tele 01/07 Assessment & Plan (01/08/2025 8:18 AM CDT): Noted on physical exam 01/04, and confirmed on tele. - Continue heparin gtt - May require intermediate AC beyond that which is needed acute DVTs - Adequate rate control at this time on metoprolol XL 25mg - dc tele 01/07 Assessment & Plan (01/07/2025 6:25 PM CDT): Noted on physical exam 01/04, and confirmed on tele. - Continue heparin gtt - May require intermediate AC beyond that which is needed acute DVTs - Adequate rate control at this time on metoprolol XL 25mg - dc tele 01/07 Assessment & Plan (01/06/2025 8:17 AM CDT): Noted on physical exam 01/04, and confirmed on tele. - Continue heparin gtt - May require intermediate AC beyond that which is needed acute DVTs - Adequate rate control at this time Assessment & Plan (01/05/2025 3:33 PM CDT): Noted on physical exam 01/04, and confirmed on tele. - Continue heparin gtt - May require intermediate AC beyond that which is needed acute DVTs - Adequate rate control at this time Edema, lower extremity 01/03/2025 Acute DVT (deep venous thrombosis) 01/03/2025 Assessment & Plan (01/09/2025 8:41 AM CDT): LLE edema, 2+ noted on 01/03. Trace edema on RLE. Possibly hypercoagulable given low aPTT. - US 01/03 revealed extensive DVTs in LLE (common femoral and down leg) and some in RLE (soleal vein) - ordered AT3 activity - > WNL - on heparin gtt since 01/04, transitioned to DOAC 7/2 - ok for PT/OT 01/07 after being on heparin gtt for few days Assessment & Plan (01/08/2025 10:36 PM CDT): LLE edema, 2+ noted on 01/03. Trace edema on RLE. Possibly hypercoagulable given low aPTT. - US 01/03 revealed extensive DVTs in LLE (common femoral and down leg) and some in RLE (soleal vein) - ordered AT3 activity - > WNL - on heparin gtt since 01/04, transitioned to DOAC 7/2 - ok for PT/OT 01/07 after being on heparin gtt for few days Assessment & Plan (01/07/2025 6:25 PM CDT): LLE edema, 2+ noted on 01/03. Trace edema on RLE. Possibly hypercoagulable given low aPTT. - US 01/03 revealed extensive DVTs in LLE (common femoral and down leg) and some in RLE (soleal vein) - ordered AT3 activity - > WNL - on heparin gtt since 01/04, will transition to DOAC 7/[address] 01/07 results - ok for PT/OT 01/07 after being on heparin gtt for few days Assessment & Plan (01/06/2025 8:17 AM CDT): LLE edema, 2+ noted on 01/03. Trace edema on RLE. Possibly hypercoagulable given low aPTT. - US 01/03 revealed extensive DVTs in LLE (common femoral and down leg) and some in RLE (soleal vein) - ordered AT3 activity - > WNL - on heparin gtt since 01/04 - no PT/OT at this time d/t acute DVT Assessment & Plan (01/05/2025 7:22 AM CDT): LLE edema, 2+ noted on 01/03. Trace edema on RLE. Possibly hypercoagulable given low aPTT. - US 01/03 revealed extensive DVTs in LLE (common femoral and down leg) and some in RLE (soleal vein) - ordered AT3 activity - > WNL - on heparin gtt since 01/04 - no PT/OT at this time d/t acute DVT Assessment & Plan (01/04/2025 10:30 PM CDT): LLE edema, 2+ noted on 01/03. Trace edema on RLE. Possibly hypercoagulable given low aPTT. - US 01/03 revealed extensive DVTs in LLE (common femoral and down leg) and some in RLE (soleal vein) - ordered AT3 activity - > WNL - on heparin gtt since 01/04 Assessment & Plan (01/03/2025 4:29 PM CDT): LLE edema, 2+ noted on 01/03. Trace edema on RLE. Possibly hypercoagulable given low aPTT and low albumin -> low AT3? 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 and oral prednisone tapers - follows with derm here at [facility], per 11/18/24 note, pt was started on steroid taper (60 mg qam x 2 weeks, then 40 mg qam x 2 weeksm then 20 mg qam x 2 weeks then 10 mg qam x 2 weeks) - started on Bactrim for PJP ppx Plan: - currently prednisone 10mg/d and at end of week 7 of 8 weeks (EOT: 01/12) - c/s derm: - does not appear active, and no other steroid-sparing intermediate control agents due to hx of bladder cancer - continue steroid taper as previously rx - hydrofera blue dressings or Aquacel - PPx: - bactrim (held due to interaction between Bactrim and DOAC) - PPI - vit D-Ca - Wound care consult Assessment & Plan (01/08/2025 10:36 PM CDT): - L groin ulcer, L arm purpura, R arm purpura and skin tears - He was last seen at [facility] wound care clinic on 11/18/24 - 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 and oral prednisone tapers - follows with derm here at [facility], per 11/18/24 note, pt was started on steroid taper (60 mg qam x 2 weeks, then 40 mg qam x 2 weeksm then 20 mg qam x 2 weeks then 10 mg qam x 2 weeks) - started on Bactrim for PJP ppx Plan: - currently prednisone 10mg/d and at end of week 7 of 8 weeks (EOT: 01/12) - c/s derm: - does not appear active, and no other steroid-sparing intermediate control agents due to hx of bladder cancer - continue steroid taper as previously rx - hydrofera blue dressings or Aquacel - PPx: - bactrim (held due to interaction between Bactrim and DOAC) - PPI - vit D-Ca - Wound care consult Assessment & Plan (01/07/2025 8:01 AM CDT): - L groin ulcer, L arm purpura, R arm purpura and skin tears - He was last seen at [facility] wound care clinic on 11/18/24 - 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 and oral prednisone tapers - follows with derm here at [facility], per 11/18/24 note, pt was started on steroid taper (60 mg qam x 2 weeks, then 40 mg qam x 2 weeksm then 20 mg qam x 2 weeks then 10 mg qam x 2 weeks) - started on Bactrim for PJP ppx Plan: - currently prednisone 10mg/d and at end of week 7 of 8 weeks (EOT: 01/12) - c/s derm: - does not appear active, and no other steroid-sparing intermediate control agents due to hx of bladder cancer - continue steroid taper as previously rx - hydrofera blue dressings or Aquacel - PPx: - bactrim (note interaction between Bactrim and DOAC if planning to dc on DOAC) - PPI - vit D-Ca - Wound care consult Assessment & Plan (01/06/2025 5:43 PM CDT): - L groin ulcer, L arm purpura, R arm purpura and skin tears - He was last seen at [facility] wound care clinic on 11/18/24 - 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 and oral prednisone tapers - follows with derm here at [facility], per 11/18/24 note, pt was started on steroid taper (60 mg qam x 2 weeks, then 40 mg qam x 2 weeksm then 20 mg qam x 2 weeks then 10 mg qam x 2 weeks) - started on Bactrim for PJP ppx Plan: - currently prednisone 10mg/d and at end of week 7 of 8 weeks (EOT: 01/12) - c/s derm: - does not appear active, and no other steroid-sparing intermediate control agents due to hx of bladder cancer - continue steroid taper as previously rx - hydrofera blue dressings or Aquacel - PPx: - bactrim (note interaction between Bactrim and DOAC if planning to dc on DOAC) - PPI - vit D-Ca - Wound care consult Assessment & Plan (01/05/2025 7:17 AM CDT): - L groin ulcer, L arm purpura, R arm purpura and skin tears - He was last seen at [facility] wound care clinic on 11/18/24 - 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 and oral prednisone tapers - follows with derm here at [facility], per 11/18/24 note, pt was started on steroid taper (60 mg qam x 2 weeks, then 40 mg qam x 2 weeksm then 20 mg qam x 2 weeks then 10 mg qam x 2 weeks) - started on Bactrim for PJP ppx Plan: - currently prednisone 10mg/d and at end of week 7 of 8 weeks (EOT: 01/12) - c/s derm: - does not appear active, and no other steroid-sparing intermediate control agents due to hx of bladder cancer - continue steroid taper as previously rx - hydrofera blue dressings - PPx: - bactrim (note interaction between Bactrim and DOAC if planning to dc on DOAC) - PPI - vit D-Ca - Wound care consult Assessment & Plan (01/04/2025 10:30 PM CDT): - L groin ulcer, L arm purpura, R arm purpura and skin tears - He was last seen at [facility] wound care clinic on 11/18/24 - 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 and oral prednisone tapers - follows with derm here at [facility], per 11/18/24 note, pt was started on steroid taper (60 mg qam x 2 weeks, then 40 mg qam x 2 weeksm then 20 mg qam x 2 weeks then 10 mg qam x 2 weeks) - started on Bactrim for PJP ppx Plan: - currently prednisone 10mg/d and at end of week 7 of 8 weeks (EOT: 01/12) - c/s derm: - does not appear active, and no other steroid-sparing intermediate control agents due to hx of bladder cancer - continue steroid taper as previously rx - hydrofera blue dressings - PPx: - bactrim (note interaction between Bactrim and DOAC if planning to dc on DOAC) - PPI - vit D-Ca - Wound care consult Assessment & Plan (01/03/2025 4:29 PM CDT): - L groin ulcer, L arm purpura, R arm purpura and skin tears - He was last seen at [facility] wound care clinic on 11/18/24 - 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 and oral prednisone tapers - follows with derm here at [facility], per 11/18/24 note, pt was started on steroid taper (60 mg qam x 2 weeks, then 40 mg qam x 2 weeksm then 20 mg qam x 2 weeks then 10 mg qam x 2 weeks) - started on Bactrim for PJP ppx Plan: - currently prednisone 10mg/d and at end of week 7 of 8 weeks (EOT: 01/12) - c/s derm - PPx: - bactrim (note interaction between Bactrim and DOAC if planning to dc on DOAC) - PPI - vit D-Ca - Wound care consult Assessment & Plan (01/02/2025 5:27 AM CDT): - L groin ulcer, L arm purpura, R arm purpura and skin tears - He was last seen at [facility] wound care clinic on 11/18/24 - 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 and oral prednisone tapers - follows with derm here at [facility], per 11/18/24 note, pt was started on steroid taper (60 mg qam x 2 weeks, then 40 mg qam x 2 weeksm then 20 mg qam x 2 weeks then 10 mg qam x 2 weeks) - started on Bactrim for PJP ppx Plan: - Follow-up regarding steroids and pjp ppx - Wound care consult Hypothyroidism, unspecified 01/02/2025 Assessment & Plan (01/09/2025 8:41 AM CDT): - DRAW STRING KNOTTER synthroid 75 mcg qd Assessment & Plan (01/08/2025 8:18 AM CDT): - DRAW STRING KNOTTER synthroid 75 mcg qd Assessment & Plan (01/07/2025 8:01 AM CDT): - DRAW STRING KNOTTER synthroid 75 mcg qd Assessment & Plan (01/06/2025 8:17 AM CDT): - DRAW STRING KNOTTER synthroid 75 mcg qd Assessment & Plan (01/05/2025 7:17 AM CDT): - DRAW STRING KNOTTER synthroid 75 mcg qd Assessment & Plan (01/04/2025 6:51 AM CDT): - DRAW STRING KNOTTER synthroid 75 mcg qd Assessment & Plan (01/03/2025 8:14 AM CDT): - DRAW STRING KNOTTER synthroid 75 mcg qd Assessment & Plan (01/02/2025 5:27 AM CDT): - DRAW STRING KNOTTER synthroid 75 mcg qd UTI (urinary tract infection) 01/02/2025 Assessment & Plan (01/09/2025 8:41 AM CDT): - afebrile, HDS, WBC 18.07 with left shift, UA 50> WBC, 3+ LE, neg nitrites, 4+ bacteria, 21-50 RBCs - Ucx pending Plan: - Continue abx and source control as above Assessment & Plan (01/08/2025 8:18 AM CDT): - afebrile, HDS, WBC 18.07 with left shift, UA 50> WBC, 3+ LE, neg nitrites, 4+ bacteria, 21-50 RBCs - Ucx pending Plan: - Continue abx and source control as above Assessment & Plan (01/07/2025 8:01 AM CDT): - afebrile, HDS, WBC 18.07 with left shift, UA 50> WBC, 3+ LE, neg nitrites, 4+ bacteria, 21-50 RBCs - Ucx pending Plan: - Continue abx and source control as above Assessment & Plan (01/06/2025 8:17 AM CDT): - afebrile, HDS, WBC 18.07 with left shift, UA 50> WBC, 3+ LE, neg nitrites, 4+ bacteria, 21-50 RBCs - Ucx pending Plan: - Continue abx and source control as above Assessment & Plan (01/05/2025 7:17 AM CDT): - afebrile, HDS, WBC 18.07 with left shift, UA 50> WBC, 3+ LE, neg nitrites, 4+ bacteria, 21-50 RBCs - Ucx pending Plan: - Continue abx and source control as above Assessment & Plan (01/04/2025 6:51 AM CDT): - afebrile, HDS, WBC 18.07 with left shift, UA 50> WBC, 3+ LE, neg nitrites, 4+ bacteria, 21-50 RBCs - Ucx pending Plan: - Continue abx and source control as above Assessment & Plan (01/03/2025 4:29 PM CDT): - afebrile, HDS, WBC 18.07 with left shift, UA 50> WBC, 3+ LE, neg nitrites, 4+ bacteria, 21-50 RBCs - Ucx pending Plan: - Continue abx and source control as above Assessment & Plan (01/02/2025 5:27 AM CDT): - afebrile, HDS, WBC 18.07 with left shift, UA 50> WBC, 3+ LE, neg nitrites, 4+ bacteria, 21-50 RBCs - Ucx pending Plan: - Continue abx as above AMS (altered mental status) 01/02/2025 Assessment & Plan (01/09/2025 8:41 AM CDT): - Pt A&Ox1 (only to self), according to , pt has been waxing+waning mental status for the past 1 week (baseline of a&ox2) Plan: - Delirium precautions in place - pain control as above per palliative - may add donepezil back if can confirm dose with family Assessment & Plan (01/08/2025 10:36 PM CDT): - Pt A&Ox1 (only to self), according to , pt has been waxing+waning mental status for the past 1 week (baseline of a&ox2) Plan: - Delirium precautions in place - pain control as above per palliative - may add donepezil back if can confirm dose with family Assessment & Plan (01/07/2025 8:01 AM CDT): - Pt A&Ox1 (only to self), according to , pt has been waxing+waning mental status for the past 1 week (baseline of a&ox2) Plan: - Delirium precautions in place - pain control as above per palliative - may add donepezil back tomorrow 7 if can confirm dose with family Assessment & Plan (01/06/2025 5:43 PM CDT): - Pt A&Ox1 (only to self), according to , pt has been waxing+waning mental status for the past 1 week (baseline of a&ox2) Plan: - Delirium precautions in place - pain control as above per palliative - may add donepezil back tomorrow 7 if can confirm dose with family Assessment & Plan (01/05/2025 3:33 PM CDT): - Pt A&Ox1 (only to self), according to , pt has been waxing+waning mental status for the past 1 week (baseline of a&ox2) Plan: - Delirium precautions in place - pain control as above per palliative - may add donepezil back tomorrow 01/06 Assessment & Plan (01/04/2025 10:30 PM CDT): - Pt A&Ox1 (only to self), according to , pt has been waxing+waning mental status for the past 1 week (baseline of a&ox2) Plan: - Delirium precautions in place - pain control as above per palliative - may add donepezil back tomorrow 01/05 Assessment & Plan (01/03/2025 4:44 PM CDT): - Pt A&Ox1 (only to self), according to , pt has been waxing+waning mental status for the past 1 week (baseline of a&ox2) Plan: - Delirium precautions in place - NPO until after possible IR procedure and/or urology surgery and passes bedside swallow (on IVF D5-NS) - pain control as above per palliative - may add donepezil back tomorrow 01/04 Assessment & Plan (01/02/2025 5:27 AM CDT): - Pt A&Ox1 (only to self), according to , pt has been waxing+waning mental status for the past 1 week (baseline of a&ox2) Plan: - Delirium precautions in place 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 01/03/20 Assessment & Plan (01/09/2025 8:41 AM CDT): - L groin ulcer, L arm purpura, R arm purpura and skin tears - He was last seen at [facility] wound care clinic on 11/18/24 - 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 and oral prednisone tapers - follows with derm here at [facility], per 11/18/24 note, pt was started on steroid taper (60 mg qam x 2 weeks, then 40 mg qam x 2 weeksm then 20 mg qam x 2 weeks then 10 mg qam x 2 weeks) - started on Bactrim for PJP ppx Plan: - currently prednisone 10mg/d and at end of week 7 of 8 weeks (EOT: 01/12) - c/s derm: - does not appear active, and no other steroid-sparing intermediate control agents due to hx of bladder cancer - continue steroid taper as previously rx - hydrofera blue dressings or Aquacel - PPx: - bactrim (held due to interaction between Bactrim and DOAC) - PPI - vit D-Ca - Wound care consult Assessment & Plan (01/08/2025 10:36 PM CDT): - L groin ulcer, L arm purpura, R arm purpura and skin tears - He was last seen at [facility] wound care clinic on 11/18/24 - 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 and oral prednisone tapers - follows with derm here at [facility], per 11/18/24 note, pt was started on steroid taper (60 mg qam x 2 weeks, then 40 mg qam x 2 weeksm then 20 mg qam x 2 weeks then 10 mg qam x 2 weeks) - started on Bactrim for PJP ppx Plan: - currently prednisone 10mg/d and at end of week 7 of 8 weeks (EOT: 01/12) - c/s derm: - does not appear active, and no other steroid-sparing intermediate control agents due to hx of bladder cancer - continue steroid taper as previously rx - hydrofera blue dressings or Aquacel - PPx: - bactrim (held due to interaction between Bactrim and DOAC) - PPI - vit D-Ca - Wound care consult Assessment & Plan (01/07/2025 8:01 AM CDT): - L groin ulcer, L arm purpura, R arm purpura and skin tears - He was last seen at [facility] wound care clinic on 11/18/24 - 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 and oral prednisone tapers - follows with derm here at [facility], per 11/18/24 note, pt was started on steroid taper (60 mg qam x 2 weeks, then 40 mg qam x 2 weeksm then 20 mg qam x 2 weeks then 10 mg qam x 2 weeks) - started on Bactrim for PJP ppx Plan: - currently prednisone 10mg/d and at end of week 7 of 8 weeks (EOT: 01/12) - c/s derm: - does not appear active, and no other steroid-sparing intermediate control agents due to hx of bladder cancer - continue steroid taper as previously rx - hydrofera blue dressings or Aquacel - PPx: - bactrim (note interaction between Bactrim and DOAC if planning to dc on DOAC) - PPI - vit D-Ca - Wound care consult Assessment & Plan (01/06/2025 5:43 PM CDT): - L groin ulcer, L arm purpura, R arm purpura and skin tears - He was last seen at [facility] wound care clinic on 11/18/24 - 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 and oral prednisone tapers - follows with derm here at [facility], per 11/18/24 note, pt was started on steroid taper (60 mg qam x 2 weeks, then 40 mg qam x 2 weeksm then 20 mg qam x 2 weeks then 10 mg qam x 2 weeks) - started on Bactrim for PJP ppx Plan: - currently prednisone 10mg/d and at end of week 7 of 8 weeks (EOT: 01/12) - c/s derm: - does not appear active, and no other steroid-sparing intermediate control agents due to hx of bladder cancer - continue steroid taper as previously rx - hydrofera blue dressings or Aquacel - PPx: - bactrim (note interaction between Bactrim and DOAC if planning to dc on DOAC) - PPI - vit D-Ca - Wound care consult Assessment & Plan (01/05/2025 7:17 AM CDT): - L groin ulcer, L arm purpura, R arm purpura and skin tears - He was last seen at [facility] wound care clinic on 11/18/24 - 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 and oral prednisone tapers - follows with derm here at [facility], per 11/18/24 note, pt was started on steroid taper (60 mg qam x 2 weeks, then 40 mg qam x 2 weeksm then 20 mg qam x 2 weeks then 10 mg qam x 2 weeks) - started on Bactrim for PJP ppx Plan: - currently prednisone 10mg/d and at end of week 7 of 8 weeks (EOT: 01/12) - c/s derm: - does not appear active, and no other steroid-sparing intermediate control agents due to hx of bladder cancer - continue steroid taper as previously rx - hydrofera blue dressings - PPx: - bactrim (note interaction between Bactrim and DOAC if planning to dc on DOAC) - PPI - vit D-Ca - Wound care consult Assessment & Plan (01/04/2025 10:30 PM CDT): - L groin ulcer, L arm purpura, R arm purpura and skin tears - He was last seen at [facility] wound care clinic on 11/18/24 - 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 and oral prednisone tapers - follows with derm here at [facility], per 11/18/24 note, pt was started on steroid taper (60 mg qam x 2 weeks, then 40 mg qam x 2 weeksm then 20 mg qam x 2 weeks then 10 mg qam x 2 weeks) - started on Bactrim for PJP ppx Plan: - currently prednisone 10mg/d and at end of week 7 of 8 weeks (EOT: 01/12) - c/s derm: - does not appear active, and no other steroid-sparing intermediate control agents due to hx of bladder cancer - continue steroid taper as previously rx - hydrofera blue dressings - PPx: - bactrim (note interaction between Bactrim and DOAC if planning to dc on DOAC) - PPI - vit D-Ca - Wound care consult Assessment & Plan (01/03/2025 4:29 PM CDT): - L groin ulcer, L arm purpura, R arm purpura and skin tears - He was last seen at [facility] wound care clinic on 11/18/24 - 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 and oral prednisone tapers - follows with derm here at [facility], per 11/18/24 note, pt was started on steroid taper (60 mg qam x 2 weeks, then 40 mg qam x 2 weeksm then 20 mg qam x 2 weeks then 10 mg qam x 2 weeks) - started on Bactrim for PJP ppx Plan: - currently prednisone 10mg/d and at end of week 7 of 8 weeks (EOT: 01/12) - c/s derm - PPx: - bactrim (note interaction between Bactrim and DOAC if planning to dc on DOAC) - PPI - vit D-Ca - Wound care consult Assessment & Plan (01/02/2025 5:27 AM CDT): - L groin ulcer, L arm purpura, R arm purpura and skin tears - He was last seen at [facility] wound care clinic on 11/18/24 - 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 and oral prednisone tapers - follows with derm here at [facility], per 11/18/24 note, pt was started on steroid taper (60 mg qam x 2 weeks, then 40 mg qam x 2 weeksm then 20 mg qam x 2 weeks then 10 mg qam x 2 weeks) - started on Bactrim for PJP ppx Plan: - Follow-up regarding steroids and pjp ppx - Wound care consult Abdominal pain c/f bladder perforation Assessment & Plan (01/09/2025 8:41 AM CDT): - 11/27/24 TURBT procedure , pt developed UTI 2/2 post-op infection, d/c with PICC line on Vanc, line dislodge 4 days ago - OSH imaging: CTAP (results unavailable), CT cystogram: 1.1 cm defect in the anterior bladder wall with extraperitoneal bladder rupture - on arrival to [facility], catheter placed by urology, repeat CT cystogram: 1.1cm bladder perforation with extraperitoneal bladder perforation and 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 - Bcx, Ucx pending - Bcx obtained prior to abx - s/p 1 dose Vanc 1.5g IV + Flagyl in ED Plan: - Radiology recommends repeat CT in 1mo for mesenteric/peritoneal stranding -ID c/s: - follow blood and urine cx - TTE to eval for infection - limited, but negative within limitations - no need for YOLANDE per ID - Abx: initially on Vanc + Flagyl + Zoysn -> d/c'd Zosyn and Flagyl, added cefepime on 01/02 per ID recs -> d/c'd cefepime and vanc, added linezolid on 01/03 per ID - current abx: linezolid 600mg BID (EOT: 01/13), needs weekly CMP/CBC monitoring - Continue monitoring for purulent debris in urine - Urology c/s: - CT cystogram 01/04 appears improved, no plan for surgery right now - f/up CTAP w on 01/07 - appears improved and ok to dc - Continue catheter to gravity drainage; discharge with [facility] for at least 1 month with repeat cystogram in 2-3 weeks outpatient prior to removal - IR c/s: - requested drainage of urinoma 01/03 but unable to perform due to no drainable pocket - Palliative c/s: - sched morphine 2mg q6h and sched APAP 1g q8h; PRN IV morphine 2mg q2h -> primary changed to sched morphine 2mg BID and PRN IV 2mg q2h on 01/06 - Scheduled senna 2 tabs BID, PRN miralax to avoid constipation on opioids - PT/OT - SNF Assessment & Plan (01/08/2025 10:36 PM CDT): - 11/27/24 TURBT procedure , pt developed UTI 2/2 post-op infection, d/c with PICC line on Vanc, line dislodge 4 days ago - OSH imaging: CTAP (results unavailable), CT cystogram: 1.1 cm defect in the anterior bladder wall with extraperitoneal bladder rupture - on arrival to [facility], catheter placed by urology, repeat CT cystogram: 1.1cm bladder perforation with extraperitoneal bladder perforation and 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 - Bcx, Ucx pending - Bcx obtained prior to abx - s/p 1 dose Vanc 1.5g IV + Flagyl in ED Plan: - Radiology recommends repeat CT in 1mo for mesenteric/peritoneal stranding -ID c/s: - follow blood and urine cx - TTE to eval for infection - limited, but negative within limitations - no need for YOLANDE per ID - Abx: initially on Vanc + Flagyl + Zoysn -> d/c'd Zosyn and Flagyl, added cefepime on 01/02 per ID recs -> d/c'd cefepime and vanc, added linezolid on 01/03 per ID - current abx: linezolid 600mg BID (EOT: 01/13), needs weekly CMP/CBC monitoring - Continue monitoring for purulent debris in urine - Urology c/s: - CT cystogram 01/04 appears improved, no plan for surgery right now - f/up CTAP w on 01/07 - appears improved and ok to dc - Continue catheter to gravity drainage; discharge with [facility] for at least 1 month with repeat cystogram in 2-3 weeks outpatient prior to removal - IR c/s: - requested drainage of urinoma 01/03 but unable to perform due to no drainable pocket - Palliative c/s: - sched morphine 2mg q6h and sched APAP 1g q8h; PRN IV morphine 2mg q2h -> primary changed to sched morphine 2mg BID and PRN IV 2mg q2h on 01/06 - Scheduled senna 2 tabs BID, PRN miralax to avoid constipation on opioids - PT/OT - SNF Assessment & Plan (01/07/2025 6:25 PM CDT): - 11/27/24 TURBT procedure , pt developed UTI 2/2 post-op infection, d/c with PICC line on Vanc, line dislodge 4 days ago - OSH imaging: CTAP (results unavailable), CT cystogram: 1.1 cm defect in the anterior bladder wall with extraperitoneal bladder rupture - on arrival to [facility], catheter placed by urology, repeat CT cystogram: 1.1cm bladder perforation with extraperitoneal bladder perforation and 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 - Bcx, Ucx pending - Bcx obtained prior to abx - s/p 1 dose Vanc 1.5g IV + Flagyl in ED Plan: - Radiology recommends repeat CT in 1mo for mesenteric/peritoneal stranding -ID c/s: - follow blood and urine cx - TTE to eval for infection - limited, but negative within limitations - no need for YOLANDE per ID - Abx: initially on Vanc + Flagyl + Zoysn -> d/c'd Zosyn and Flagyl, added cefepime on 01/02 per ID recs -> d/c'd cefepime and vanc, added linezolid on 01/03 per ID - current abx: linezolid 600mg BID (EOT: 01/13), needs weekly CMP/CBC monitoring - Continue monitoring for purulent debris in urine - Urology c/s: - CT cystogram 01/04 appears improved, no plan for surgery right now - f/up CTAP w on 01/07 - Continue catheter to gravity drainage; anticipate discharge with [facility] for at least 1 month with repeat cystogram in 2-3 weeks outpatient prior to removal - IR c/s: - requested drainage of urinoma 01/03 but unable to perform due to no drainable - Palliative c/s: - sched morphine 2mg q6h and sched APAP 1g q8h; PRN IV morphine 2mg q2h -> primary changed to sched morphine 2mg BID and PRN IV 2mg q2h on 01/06 - Scheduled senna 2 tabs BID, PRN miralax to avoid constipation on opioids - PT/OT - PT recs SNF, OT eval pending Assessment & Plan (01/06/2025 5:43 PM CDT): - 11/27/24 TURBT procedure , pt developed UTI 2/2 post-op infection, d/c with PICC line on Vanc, line dislodge 4 days ago - OSH imaging: CTAP (results unavailable), CT cystogram: 1.1 cm defect in the anterior bladder wall with extraperitoneal bladder rupture - on arrival to [facility], catheter placed by urology, repeat CT cystogram: 1.1cm bladder perforation with extraperitoneal bladder perforation and 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 - Bcx, Ucx pending - Bcx obtained prior to abx - s/p 1 dose Vanc 1.5g IV + Flagyl in ED Plan: - Radiology recommends repeat CT in 1mo for mesenteric/peritoneal stranding -ID c/s: - follow blood and urine cx - TTE to eval for infection - limited, but negative within limitations - no need for YOLANDE per ID - Abx: initially on Vanc + Flagyl + Zoysn -> d/c'd Zosyn and Flagyl, added cefepime on 01/02 per ID recs -> d/c'd cefepime and vanc, added linezolid on 01/03 per ID - current abx: linezolid 600mg BID (EOT: 01/13), needs weekly CMP/CBC monitoring - Continue monitoring for purulent debris in urine - Urology c/s: - CT cystogram 01/04 appears improved, no plan for surgery right now - trend Ucx, tailor abx as needed - Continue catheter to gravity drainage; anticipate discharge with [facility] for at least 1 month with repeat cystogram prior to removal - IR c/s: - requested drainage of urinoma 01/03 but unable to perform due to no drainable - will repeat CT scan on around 01/07 to assess for amenability to drainage - Palliative c/s: - sched morphine 2mg q6h and sched APAP 1g q8h; PRN IV morphine 2mg q2h -> primary changed to sched morphine 2mg BID and PRN IV 2mg q2h on 01/06 - Scheduled senna 2 tabs BID, PRN miralax to avoid constipation on opioids Assessment & Plan (01/05/2025 3:33 PM CDT): - 11/27/24 TURBT procedure , pt developed UTI 2/2 post-op infection, d/c with PICC line on Vanc, line dislodge 4 days ago - OSH imaging: CTAP (results unavailable), CT cystogram: 1.1 cm defect in the anterior bladder wall with extraperitoneal bladder rupture - on arrival to [facility], catheter placed by urology, repeat CT cystogram: 1.1cm bladder perforation with extraperitoneal bladder perforation and 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 - Bcx, Ucx pending - Bcx obtained prior to abx - s/p 1 dose Vanc 1.5g IV + Flagyl in ED Plan: - Radiology recommends repeat CT in 1mo for mesenteric/peritoneal stranding -ID c/s: - follow blood and urine cx - TTE to eval for infection - limited, but negative within limitations - no need for YOLANDE per ID - Abx: initially on Vanc + Flagyl + Zoysn -> d/c'd Zosyn and Flagyl, added cefepime on 01/02 per ID recs -> d/c'd cefepime and vanc, added linezolid on 01/03 per ID - current abx: linezolid 600mg BID (EOT: 01/13), needs weekly CMP/CBC monitoring - Continue monitoring for purulent debris in urine - Urology c/s: - CT cystogram 01/04 appears improved, no plan for surgery right now - trend Ucx, tailor abx as needed - Continue catheter to gravity drainage; anticipate discharge with [facility] for at least 1 month with repeat cystogram prior to removal - IR c/s: - requested drainage of urinoma 01/03 but unable to perform due to no drainable - will repeat CT scan on around 01/07 to assess for amenability to drainage - Palliative c/s: - sched morphine 2mg q6h and sched APAP 1g q8h; PRN IV morphine 2mg q2h - Scheduled senna 2 tabs BID, PRN miralax to avoid constipation on opioids Assessment & Plan (01/04/2025 10:30 PM CDT): - 11/27/24 TURBT procedure , pt developed UTI 2/2 post-op infection, d/c with PICC line on Vanc, line dislodge 4 days ago - OSH imaging: CTAP (results unavailable), CT cystogram: 1.1 cm defect in the anterior bladder wall with extraperitoneal bladder rupture - on arrival to [facility], catheter placed by urology, repeat CT cystogram: 1.1cm bladder perforation with extraperitoneal bladder perforation and 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 - Bcx, Ucx pending - Bcx obtained prior to abx - s/p 1 dose Vanc 1.5g IV + Flagyl in ED Plan: - Radiology recommends repeat CT in 1mo for mesenteric/peritoneal stranding -ID c/s: - follow blood and urine cx - TTE to eval for infection - limited, but negative within limitations - no need for YOLANDE per ID - Abx: initially on Vanc + Flagyl + Zoysn -> d/c'd Zosyn and Flagyl, added cefepime on 01/02 per ID recs -> d/c'd cefepime and vanc, added linezolid on 01/03 per ID - current abx: linezolid 600mg BID (EOT: 01/13), needs weekly CMP/CBC monitoring - Urology c/s: - CT cystogram 01/04 appears improved, no plan for surgery right now - trend Ucx, tailor abx as needed - Continue catheter to gravity drainage; anticipate discharge with [facility] for at least 1 month with repeat cystogram prior to removal - IR c/s: - requested drainage of urinoma 01/03 but unable to perform due to no drainable - Palliative c/s: - sched morphine 2mg q6h and sched APAP 1g q8h; PRN IV morphine 2mg q2h - Scheduled senna 2 tabs BID, PRN miralax to avoid constipation on opioids Assessment & Plan (01/03/2025 4:29 PM CDT): - 11/27/24 TURBT procedure , pt developed UTI 2/2 post-op infection, d/c with PICC line on Vanc, line dislodge 4 days ago - OSH imaging: CTAP (results unavailable), CT cystogram: 1.1 cm defect in the anterior bladder wall with extraperitoneal bladder rupture - on arrival to [facility], catheter placed by urology, repeat CT cystogram: 1.1cm bladder perforation with extraperitoneal bladder perforation and 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 - Bcx, Ucx pending - Bcx obtained prior to abx - s/p 1 dose Vanc 1.5g IV + Flagyl in ED Plan: - ID c/s: - follow blood and urine cx - TTE to eval for infection - limited, but negative within limitations - no need for YOLANDE per ID - Abx: initially on Vanc + Flagyl + Zoysn -> d/c'd Zosyn and Flagyl, added cefepime on 01/02 per ID recs -> d/c'd cefepime and vanc, added linezolid on 01/03 per ID - current abx: linezolid 600mg BID (EOT: 01/13), needs weekly CMP/CBC monitoring - Urology c/s: - Possible surgery for bladder repair and urinoma drainage on 01/04 pending improvement with IR urinoma drain placement - NPO at [facility] 01/03 - trend Ucx, tailor abx as needed - Continue catheter to gravity drainage; anticipate discharge with [facility] for at least 1 month with repeat cystogram prior to removal - IR c/s: - requested drainage of urinoma 01/03, pending scheduling availability - maintain NPO - Palliative c/s: - sched morphine 2mg q6h and sched APAP 1g q8h; PRN IV morphine 2mg q2h - Scheduled senna 2 tabs BID, PRN miralax to avoid constipation on opioids Assessment & Plan (01/02/2025 5:27 AM CDT): - 11/27/24 TURBT procedure , pt developed UTI 2/2 post-op infection, d/c with PICC line on Vanc, line dislodge 4 days ago - OSH imaging: CTAP (results unavailable), CT cystogram: 1.1 cm defect in the anterior bladder wall with extraperitoneal bladder rupture - on arrival to [facility], catheter placed by urology, repeat CT cystogram: 1.1cm bladder perforation with extraperitoneal bladder perforation and 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 - Bcx, Ucx pending - s/p 1 dose Vanc 1.5g IV + Flagyl in ED Plan: - Continue Flagyl 500mg IV bid - Start Zosyn 3.375g IV q6hrs, can adjust pending ucx - Urology consulted - No acute intervention at this time - trend Ucx, tailor abx as needed - If patient does not improve with antibiotics and [facility] drainage, would recommend consulting IR for placement of drain into urinoma - Continue catheter to gravity drainage; anticipate discharge with [facility] for at least 1 month with repeat cystogram prior to removal Bladder cancer 01/01/2025 Assessment & Plan (01/09/2025 8:41 AM CDT): - 11/27/24 TURBT procedure , pt developed UTI 2/2 post-op infection, d/c with PICC line on Vanc, line dislodge 4 days ago - OSH imaging: CTAP (results unavailable), CT cystogram: 1.1 cm defect in the anterior bladder wall with extraperitoneal bladder rupture - on arrival to [facility], catheter placed by urology, repeat CT cystogram: 1.1cm bladder perforation with extraperitoneal bladder perforation and 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 - Bcx, Ucx pending - Bcx obtained prior to abx - s/p 1 dose Vanc 1.5g IV + Flagyl in ED Plan: - Radiology recommends repeat CT in 1mo for mesenteric/peritoneal stranding -ID c/s: - follow blood and urine cx - TTE to eval for infection - limited, but negative within limitations - no need for YOLANDE per ID - Abx: initially on Vanc + Flagyl + Zoysn -> d/c'd Zosyn and Flagyl, added cefepime on 01/02 per ID recs -> d/c'd cefepime and vanc, added linezolid on 01/03 per ID - current abx: linezolid 600mg BID (EOT: 01/13), needs weekly CMP/CBC monitoring - Continue monitoring for purulent debris in urine - Urology c/s: - CT cystogram 01/04 appears improved, no plan for surgery right now - f/up CTAP w on 01/07 - appears improved and ok to dc - Continue catheter to gravity drainage; discharge with [facility] for at least 1 month with repeat cystogram in 2-3 weeks outpatient prior to removal - IR c/s: - requested drainage of urinoma 01/03 but unable to perform due to no drainable pocket - Palliative c/s: - sched morphine 2mg q6h and sched APAP 1g q8h; PRN IV morphine 2mg q2h -> primary changed to sched morphine 2mg BID and PRN IV 2mg q2h on 01/06 - Scheduled senna 2 tabs BID, PRN miralax to avoid constipation on opioids - PT/OT - SNF Assessment & Plan (01/08/2025 10:36 PM CDT): - 11/27/24 TURBT procedure , pt developed UTI 2/2 post-op infection, d/c with PICC line on Vanc, line dislodge 4 days ago - OSH imaging: CTAP (results unavailable), CT cystogram: 1.1 cm defect in the anterior bladder wall with extraperitoneal bladder rupture - on arrival to [facility], catheter placed by urology, repeat CT cystogram: 1.1cm bladder perforation with extraperitoneal bladder perforation and 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 - Bcx, Ucx pending - Bcx obtained prior to abx - s/p 1 dose Vanc 1.5g IV + Flagyl in ED Plan: - Radiology recommends repeat CT in 1mo for mesenteric/peritoneal stranding -ID c/s: - follow blood and urine cx - TTE to eval for infection - limited, but negative within limitations - no need for YOLANDE per ID - Abx: initially on Vanc + Flagyl + Zoysn -> d/c'd Zosyn and Flagyl, added cefepime on 01/02 per ID recs -> d/c'd cefepime and vanc, added linezolid on 01/03 per ID - current abx: linezolid 600mg BID (EOT: 01/13), needs weekly CMP/CBC monitoring - Continue monitoring for purulent debris in urine - Urology c/s: - CT cystogram 01/04 appears improved, no plan for surgery right now - f/up CTAP w on 01/07 - appears improved and ok to dc - Continue catheter to gravity drainage; discharge with [facility] for at least 1 month with repeat cystogram in 2-3 weeks outpatient prior to removal - IR c/s: - requested drainage of urinoma 01/03 but unable to perform due to no drainable pocket - Palliative c/s: - sched morphine 2mg q6h and sched APAP 1g q8h; PRN IV morphine 2mg q2h -> primary changed to sched morphine 2mg BID and PRN IV 2mg q2h on 01/06 - Scheduled senna 2 tabs BID, PRN miralax to avoid constipation on opioids - PT/OT - SNF Assessment & Plan (01/07/2025 6:25 PM CDT): - 11/27/24 TURBT procedure , pt developed UTI 2/2 post-op infection, d/c with PICC line on Vanc, line dislodge 4 days ago - OSH imaging: CTAP (results unavailable), CT cystogram: 1.1 cm defect in the anterior bladder wall with extraperitoneal bladder rupture - on arrival to [facility], catheter placed by urology, repeat CT cystogram: 1.1cm bladder perforation with extraperitoneal bladder perforation and 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 - Bcx, Ucx pending - Bcx obtained prior to abx - s/p 1 dose Vanc 1.5g IV + Flagyl in ED Plan: - Radiology recommends repeat CT in 1mo for mesenteric/peritoneal stranding -ID c/s: - follow blood and urine cx - TTE to eval for infection - limited, but negative within limitations - no need for YOLANDE per ID - Abx: initially on Vanc + Flagyl + Zoysn -> d/c'd Zosyn and Flagyl, added cefepime on 01/02 per ID recs -> d/c'd cefepime and vanc, added linezolid on 01/03 per ID - current abx: linezolid 600mg BID (EOT: 01/13), needs weekly CMP/CBC monitoring - Continue monitoring for purulent debris in urine - Urology c/s: - CT cystogram 01/04 appears improved, no plan for surgery right now - f/up CTAP w on 01/07 - Continue catheter to gravity drainage; anticipate discharge with [facility] for at least 1 month with repeat cystogram in 2-3 weeks outpatient prior to removal - IR c/s: - requested drainage of urinoma 01/03 but unable to perform due to no drainable - Palliative c/s: - sched morphine 2mg q6h and sched APAP 1g q8h; PRN IV morphine 2mg q2h -> primary changed to sched morphine 2mg BID and PRN IV 2mg q2h on 01/06 - Scheduled senna 2 tabs BID, PRN miralax to avoid constipation on opioids - PT/OT - PT recs SNF, OT eval pending Assessment & Plan (01/06/2025 5:43 PM CDT): - 11/27/24 TURBT procedure , pt developed UTI 2/2 post-op infection, d/c with PICC line on Vanc, line dislodge 4 days ago - OSH imaging: CTAP (results unavailable), CT cystogram: 1.1 cm defect in the anterior bladder wall with extraperitoneal bladder rupture - on arrival to [facility], catheter placed by urology, repeat CT cystogram: 1.1cm bladder perforation with extraperitoneal bladder perforation and 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 - Bcx, Ucx pending - Bcx obtained prior to abx - s/p 1 dose Vanc 1.5g IV + Flagyl in ED Plan: - Radiology recommends repeat CT in 1mo for mesenteric/peritoneal stranding -ID c/s: - follow blood and urine cx - TTE to eval for infection - limited, but negative within limitations - no need for YOLANDE per ID - Abx: initially on Vanc + Flagyl + Zoysn -> d/c'd Zosyn and Flagyl, added cefepime on 01/02 per ID recs -> d/c'd cefepime and vanc, added linezolid on 01/03 per ID - current abx: linezolid 600mg BID (EOT: 01/13), needs weekly CMP/CBC monitoring - Continue monitoring for purulent debris in urine - Urology c/s: - CT cystogram 01/04 appears improved, no plan for surgery right now - trend Ucx, tailor abx as needed - Continue catheter to gravity drainage; anticipate discharge with [facility] for at least 1 month with repeat cystogram prior to removal - IR c/s: - requested drainage of urinoma 01/03 but unable to perform due to no drainable - will repeat CT scan on around 01/07 to assess for amenability to drainage - Palliative c/s: - sched morphine 2mg q6h and sched APAP 1g q8h; PRN IV morphine 2mg q2h -> primary changed to sched morphine 2mg BID and PRN IV 2mg q2h on 01/06 - Scheduled senna 2 tabs BID, PRN miralax to avoid constipation on opioids Assessment & Plan (01/05/2025 3:33 PM CDT): - 11/27/24 TURBT procedure , pt developed UTI 2/2 post-op infection, d/c with PICC line on Vanc, line dislodge 4 days ago - OSH imaging: CTAP (results unavailable), CT cystogram: 1.1 cm defect in the anterior bladder wall with extraperitoneal bladder rupture - on arrival to [facility], catheter placed by urology, repeat CT cystogram: 1.1cm bladder perforation with extraperitoneal bladder perforation and 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 - Bcx, Ucx pending - Bcx obtained prior to abx - s/p 1 dose Vanc 1.5g IV + Flagyl in ED Plan: - Radiology recommends repeat CT in 1mo for mesenteric/peritoneal stranding -ID c/s: - follow blood and urine cx - TTE to eval for infection - limited, but negative within limitations - no need for YOLANDE per ID - Abx: initially on Vanc + Flagyl + Zoysn -> d/c'd Zosyn and Flagyl, added cefepime on 01/02 per ID recs -> d/c'd cefepime and vanc, added linezolid on 01/03 per ID - current abx: linezolid 600mg BID (EOT: 01/13), needs weekly CMP/CBC monitoring - Continue monitoring for purulent debris in urine - Urology c/s: - CT cystogram 01/04 appears improved, no plan for surgery right now - trend Ucx, tailor abx as needed - Continue catheter to gravity drainage; anticipate discharge with [facility] for at least 1 month with repeat cystogram prior to removal - IR c/s: - requested drainage of urinoma 01/03 but unable to perform due to no drainable - will repeat CT scan on around 01/07 to assess for amenability to drainage - Palliative c/s: - sched morphine 2mg q6h and sched APAP 1g q8h; PRN IV morphine 2mg q2h - Scheduled senna 2 tabs BID, PRN miralax to avoid constipation on opioids Assessment & Plan (01/04/2025 10:30 PM CDT): - 11/27/24 TURBT procedure , pt developed UTI 2/2 post-op infection, d/c with PICC line on Vanc, line dislodge 4 days ago - OSH imaging: CTAP (results unavailable), CT cystogram: 1.1 cm defect in the anterior bladder wall with extraperitoneal bladder rupture - on arrival to [facility], catheter placed by urology, repeat CT cystogram: 1.1cm bladder perforation with extraperitoneal bladder perforation and 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 - Bcx, Ucx pending - Bcx obtained prior to abx - s/p 1 dose Vanc 1.5g IV + Flagyl in ED Plan: - Radiology recommends repeat CT in 1mo for mesenteric/peritoneal stranding -ID c/s: - follow blood and urine cx - TTE to eval for infection - limited, but negative within limitations - no need for YOLANDE per ID - Abx: initially on Vanc + Flagyl + Zoysn -> d/c'd Zosyn and Flagyl, added cefepime on 01/02 per ID recs -> d/c'd cefepime and vanc, added linezolid on 01/03 per ID - current abx: linezolid 600mg BID (EOT: 01/13), needs weekly CMP/CBC monitoring - Urology c/s: - CT cystogram 01/04 appears improved, no plan for surgery right now - trend Ucx, tailor abx as needed - Continue catheter to gravity drainage; anticipate discharge with [facility] for at least 1 month with repeat cystogram prior to removal - IR c/s: - requested drainage of urinoma 01/03 but unable to perform due to no drainable - Palliative c/s: - sched morphine 2mg q6h and sched APAP 1g q8h; PRN IV morphine 2mg q2h - Scheduled senna 2 tabs BID, PRN miralax to avoid constipation on opioids Assessment & Plan (01/03/2025 4:29 PM CDT): - 11/27/24 TURBT procedure , pt developed UTI 2/2 post-op infection, d/c with PICC line on Vanc, line dislodge 4 days ago - OSH imaging: CTAP (results unavailable), CT cystogram: 1.1 cm defect in the anterior bladder wall with extraperitoneal bladder rupture - on arrival to [facility], catheter placed by urology, repeat CT cystogram: 1.1cm bladder perforation with extraperitoneal bladder perforation and 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 - Bcx, Ucx pending - Bcx obtained prior to abx - s/p 1 dose Vanc 1.5g IV + Flagyl in ED Plan: - ID c/s: - follow blood and urine cx - TTE to eval for infection - limited, but negative within limitations - no need for YOLANDE per ID - Abx: initially on Vanc + Flagyl + Zoysn -> d/c'd Zosyn and Flagyl, added cefepime on 01/02 per ID recs -> d/c'd cefepime and vanc, added linezolid on 01/03 per ID - current abx: linezolid 600mg BID (EOT: 01/13), needs weekly CMP/CBC monitoring - Urology c/s: - Possible surgery for bladder repair and urinoma drainage on 01/04 pending improvement with IR urinoma drain placement - NPO at [place] 01/03 - trend Ucx, tailor abx as needed - Continue catheter to gravity drainage; anticipate discharge with [facility] for at least 1 month with repeat cystogram prior to removal - IR c/s: - requested drainage of urinoma 01/03, pending scheduling availability - maintain NPO - Palliative c/s: - sched morphine 2mg q6h and sched APAP 1g q8h; PRN IV morphine 2mg q2h - Scheduled senna 2 tabs BID, PRN miralax to avoid constipation on opioids Assessment & Plan (01/02/2025 5:27 AM CDT): - 11/27/24 TURBT procedure , pt developed UTI 2/2 post-op infection, d/c with PICC line on Vanc, line dislodge 4 days ago - OSH imaging: CTAP (results unavailable), CT cystogram: 1.1 cm defect in the anterior bladder wall with extraperitoneal bladder rupture - on arrival to [facility], catheter placed by urology, repeat CT cystogram: 1.1cm bladder perforation with extraperitoneal bladder perforation and 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 - Bcx, Ucx pending - s/p 1 dose Vanc 1.5g IV + Flagyl in ED Plan: - Continue Flagyl 500mg IV bid - Start Zosyn 3.375g IV q6hrs, can adjust pending ucx - Urology consulted - No acute intervention at this time - trend Ucx, tailor abx as needed - If patient does not improve with antibiotics and [facility] drainage, would recommend consulting IR for placement of drain into urinoma - Continue catheter to gravity drainage; anticipate discharge with [facility] for at least 1 month with repeat cystogram prior to removal H/O transurethral resection of bladder tumor (TU RBT) 01/01/2025 Assessment & Plan (01/09/2025 8:41 AM CDT): - 11/27/24 TURBT procedure , pt developed UTI 2/2 post-op infection, d/c with PICC line on Vanc, line dislodge 4 days ago - OSH imaging: CTAP (results unavailable), CT cystogram: 1.1 cm defect in the anterior bladder wall with extraperitoneal bladder rupture - on arrival to [facility], catheter placed by urology, repeat CT cystogram: 1.1cm bladder perforation with extraperitoneal bladder perforation and 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 - Bcx, Ucx pending - Bcx obtained prior to abx - s/p 1 dose Vanc 1.5g IV + Flagyl in ED Plan: - Radiology recommends repeat CT in 1mo for mesenteric/peritoneal stranding -ID c/s: - follow blood and urine cx - TTE to eval for infection - limited, but negative within limitations - no need for YOLANDE per ID - Abx: initially on Vanc + Flagyl + Zoysn -> d/c'd Zosyn and Flagyl, added cefepime on 01/02 per ID recs -> d/c'd cefepime and vanc, added linezolid on 01/03 per ID - current abx: linezolid 600mg BID (EOT: 01/13), needs weekly CMP/CBC monitoring - Continue monitoring for purulent debris in urine - Urology c/s: - CT cystogram 01/04 appears improved, no plan for surgery right now - f/up CTAP w on 01/07 - appears improved and ok to dc - Continue catheter to gravity drainage; discharge [facility] for at least 1 month with repeat cystogram in 2-3 weeks outpatient prior to removal - IR c/s: - requested drainage of urinoma 01/03 but unable to perform due to no drainable pocket - Palliative c/s: - sched morphine 2mg q6h and sched APAP 1g q8h; PRN IV morphine 2mg q2h -> primary changed to sched morphine 2mg BID and PRN IV 2mg q2h on 01/06 - Scheduled senna 2 tabs BID, PRN miralax to avoid constipation on opioids - PT/OT - SNF Assessment & Plan (01/08/2025 10:36 PM CDT): - 11/27/24 TURBT procedure , pt developed UTI 2/2 post-op infection, d/c with PICC line on Vanc, line dislodge 4 days ago - OSH imaging: CTAP (results unavailable), CT cystogram: 1.1 cm defect in the anterior bladder wall with extraperitoneal bladder rupture - on arrival to [facility], catheter placed by urology, repeat CT cystogram: 1.1cm bladder perforation with extraperitoneal bladder perforation and 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 - Bcx, Ucx pending - Bcx obtained prior to abx - s/p 1 dose Vanc 1.5g IV + Flagyl in ED Plan: - Radiology recommends repeat CT in 1mo for mesenteric/peritoneal stranding -ID c/s: - follow blood and urine cx - TTE to eval for infection - limited, but negative within limitations - no need for YOLANDE per ID - Abx: initially on Vanc + Flagyl + Zoysn -> d/c'd Zosyn and Flagyl, added cefepime on 01/02 per ID recs -> d/c'd cefepime and vanc, added linezolid on 01/03 per ID - current abx: linezolid 600mg BID (EOT: 01/13), needs weekly CMP/CBC monitoring - Continue monitoring for purulent debris in urine - Urology c/s: - CT cystogram 01/04 appears improved, no plan for surgery right now - f/up CTAP w on 01/07 - appears improved and ok to dc - Continue catheter to gravity drainage; discharge [facility] for at least 1 month with repeat cystogram in 2-3 weeks outpatient prior to removal - IR c/s: - requested drainage of urinoma 01/03 but unable to perform due to no drainable pocket - Palliative c/s: - sched morphine 2mg q6h and sched APAP 1g q8h; PRN IV morphine 2mg q2h -> primary changed to sched morphine 2mg BID and PRN IV 2mg q2h on 01/06 - Scheduled senna 2 tabs BID, PRN miralax to avoid constipation on opioids - PT/OT - SNF Assessment & Plan (01/07/2025 6:25 PM CDT): - 11/27/24 TURBT procedure , pt developed UTI 2/2 post-op infection, d/c with PICC line on Vanc, line dislodge 4 days ago - OSH imaging: CTAP (results unavailable), CT cystogram: 1.1 cm defect in the anterior bladder wall with extraperitoneal bladder rupture - on arrival to [facility], catheter placed by urology, repeat CT cystogram: 1.1cm bladder perforation with extraperitoneal bladder perforation and 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 - Bcx, Ucx pending - Bcx obtained prior to abx - s/p 1 dose Vanc 1.5g IV + Flagyl in ED Plan: - Radiology recommends repeat CT in 1mo for mesenteric/peritoneal stranding -ID c/s: - follow blood and urine cx - TTE to eval for infection - limited, but negative within limitations - no need for YOLANDE per ID - Abx: initially on Vanc + Flagyl + Zoysn -> d/c'd Zosyn and Flagyl, added cefepime on 01/02 per ID recs -> d/c'd cefepime and vanc, added linezolid on 01/03 per ID - current abx: linezolid 600mg BID (EOT: 01/13), needs weekly CMP/CBC monitoring - Continue monitoring for purulent debris in urine - Urology c/s: - CT cystogram 01/04 appears improved, no plan for surgery right now - f/up CTAP w on 01/07 - Continue catheter to gravity drainage; anticipate discharge [facility] for at least 1 month with repeat cystogram in 2-3 weeks outpatient prior to removal - IR c/s: - requested drainage of urinoma 01/03 but unable to perform due to no drainable - Palliative c/s: - sched morphine 2mg q6h and sched APAP 1g q8h; PRN IV morphine 2mg q2h -> primary changed to sched morphine 2mg BID and PRN IV 2mg q2h on 01/06 - Scheduled senna 2 tabs BID, PRN miralax to avoid constipation on opioids - PT/OT - PT recs SNF, OT eval pending Assessment & Plan (01/06/2025 5:43 PM CDT): - 11/27/24 TURBT procedure , pt developed UTI 2/2 post-op infection, d/c with PICC line on Vanc, line dislodge 4 days ago - OSH imaging: CTAP (results unavailable), CT cystogram: 1.1 cm defect in the anterior bladder wall with extraperitoneal bladder rupture - on arrival to [facility], catheter placed by urology, repeat CT cystogram: 1.1cm bladder perforation with extraperitoneal bladder perforation and 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 - Bcx, Ucx pending - Bcx obtained prior to abx - s/p 1 dose Vanc 1.5g IV + Flagyl in ED Plan: - Radiology recommends repeat CT in 1mo for mesenteric/peritoneal stranding -ID c/s: - follow blood and urine cx - TTE to eval for infection - limited, but negative within limitations - no need for YOLANDE per ID - Abx: initially on Vanc + Flagyl + Zoysn -> d/c'd Zosyn and Flagyl, added cefepime on 01/02 per ID recs -> d/c'd cefepime and vanc, added linezolid on 01/03 per ID - current abx: linezolid 600mg BID (EOT: 01/13), needs weekly CMP/CBC monitoring - Continue monitoring for purulent debris in urine - Urology c/s: - CT cystogram 01/04 appears improved, no plan for surgery right now - trend Ucx, tailor abx as needed - Continue catheter to gravity drainage; anticipate discharge [facility] for at least 1 month with repeat cystogram prior to removal - IR c/s: - requested drainage of urinoma 01/03 but unable to perform due to no drainable - will repeat CT scan on around 01/07 to assess for amenability to drainage - Palliative c/s: - sched morphine 2mg q6h and sched APAP 1g q8h; PRN IV morphine 2mg q2h -> primary changed to sched morphine 2mg BID and PRN IV 2mg q2h on 01/06 - Scheduled senna 2 tabs BID, PRN miralax to avoid constipation on opioids Assessment & Plan (01/05/2025 3:33 PM CDT): - 11/27/24 TURBT procedure , pt developed UTI 2/2 post-op infection, d/c with PICC line on Vanc, line dislodge 4 days ago - OSH imaging: CTAP (results unavailable), CT cystogram: 1.1 cm defect in the anterior bladder wall with extraperitoneal bladder rupture - on arrival to [facility], catheter placed by urology, repeat CT cystogram: 1.1cm bladder perforation with extraperitoneal bladder perforation and 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 - Bcx, Ucx pending - Bcx obtained prior to abx - s/p 1 dose Vanc 1.5g IV + Flagyl in ED Plan: - Radiology recommends repeat CT in 1mo for mesenteric/peritoneal stranding -ID c/s: - follow blood and urine cx - TTE to eval for infection - limited, but negative within limitations - no need for YOLANDE per ID - Abx: initially on Vanc + Flagyl + Zoysn -> d/c'd Zosyn and Flagyl, added cefepime on 01/02 per ID recs -> d/c'd cefepime and vanc, added linezolid on 01/03 per ID - current abx: linezolid 600mg BID (EOT: 01/13), needs weekly CMP/CBC monitoring - Continue monitoring for purulent debris in urine - Urology c/s: - CT cystogram 01/04 appears improved, no plan for surgery right now - trend Ucx, tailor abx as needed - Continue catheter to gravity drainage; anticipate discharge [facility] for at least 1 month with repeat cystogram prior to removal - IR c/s: - requested drainage of urinoma 01/03 but unable to perform due to no drainable - will repeat CT scan on around 01/07 to assess for amenability to drainage - Palliative c/s: - sched morphine 2mg q6h and sched APAP 1g q8h; PRN IV morphine 2mg q2h - Scheduled senna 2 tabs BID, PRN miralax to avoid constipation on opioids Assessment & Plan (01/04/2025 10:30 PM CDT): - 11/27/24 TURBT procedure , pt developed UTI 2/2 post-op infection, d/c with PICC line on Vanc, line dislodge 4 days ago - OSH imaging: CTAP (results unavailable), CT cystogram: 1.1 cm defect in the anterior bladder wall with extraperitoneal bladder rupture - on arrival to [facility], catheter placed by urology, repeat CT cystogram: 1.1cm bladder perforation with extraperitoneal bladder perforation and 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 - Bcx, Ucx pending - Bcx obtained prior to abx - s/p 1 dose Vanc 1.5g IV + Flagyl in ED Plan: - Radiology recommends repeat CT in 1mo for mesenteric/peritoneal stranding -ID c/s: - follow blood and urine cx - TTE to eval for infection - limited, but negative within limitations - no need for YOLANDE per ID - Abx: initially on Vanc + Flagyl + Zoysn -> d/c'd Zosyn and Flagyl, added cefepime on 01/02 per ID recs -> d/c'd cefepime and vanc, added linezolid on 01/03 per ID - current abx: linezolid 600mg BID (EOT: 01/13), needs weekly CMP/CBC monitoring - Urology c/s: - CT cystogram 01/04 appears improved, no plan for surgery right now - trend Ucx, tailor abx as needed - Continue catheter to gravity drainage; anticipate discharge [facility] for at least 1 month with repeat cystogram prior to removal - IR c/s: - requested drainage of urinoma 01/03 but unable to perform due to no drainable - Palliative c/s: - sched morphine 2mg q6h and sched APAP 1g q8h; PRN IV morphine 2mg q2h - Scheduled senna 2 tabs BID, PRN miralax to avoid constipation on opioids Assessment & Plan (01/03/2025 4:29 PM CDT): - 11/27/24 TURBT procedure , pt developed UTI 2/2 post-op infection, d/c with PICC line on Vanc, line dislodge 4 days ago - OSH imaging: CTAP (results unavailable), CT cystogram: 1.1 cm defect in the anterior bladder wall with extraperitoneal bladder rupture - on arrival to [facility], catheter placed by urology, repeat CT cystogram: 1.1cm bladder perforation with extraperitoneal bladder perforation and 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 - Bcx, Ucx pending - Bcx obtained prior to abx - s/p 1 dose Vanc 1.5g IV + Flagyl in ED Plan: - ID c/s: - follow blood and urine cx - TTE to eval for infection - limited, but negative within limitations - no need for YOLANDE per ID - Abx: initially on Vanc + Flagyl + Zoysn -> d/c'd Zosyn and Flagyl, added cefepime on 01/02 per ID recs -> d/c'd cefepime and vanc, added linezolid on 01/03 per ID - current abx: linezolid 600mg BID (EOT: 01/13), needs weekly CMP/CBC monitoring - Urology c/s: - Possible surgery for bladder repair and urinoma drainage on 01/04 pending improvement with IR urinoma drain placement - NPO at [place] 01/03 - trend Ucx, tailor abx as needed - Continue catheter to gravity drainage; anticipate discharge [facility] for at least 1 month with repeat cystogram prior to removal - IR c/s: - requested drainage of urinoma 01/03, pending scheduling availability - maintain NPO - Palliative c/s: - sched morphine 2mg q6h and sched APAP 1g q8h; PRN IV morphine 2mg q2h - Scheduled senna 2 tabs BID, PRN miralax to avoid constipation on opioids Assessment & Plan (01/02/2025 5:27 AM CDT): - 11/27/24 TURBT procedure , pt developed UTI 2/2 post-op infection, d/c with PICC line on Vanc, line dislodge 4 days ago - OSH imaging: CTAP (results unavailable), CT cystogram: 1.1 cm defect in the anterior bladder wall with extraperitoneal bladder rupture - on arrival to [facility], catheter placed by urology, repeat CT cystogram: 1.1cm bladder perforation with extraperitoneal bladder perforation and 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 T2DM (type 2 diabetes mellitus) 07/25/2023 Assessment & Plan (01/09/2025 8:41 AM CDT): - last A1c in 01/2024 was 7.6 - 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: Metformin 500mg bid, Jardiance 25mg qd Plan: - repeat A1c 9% - While inpatient, LDSSI and 3u lispro TIDAC Assessment & Plan (01/08/2025 10:36 PM CDT): - last A1c in 01/2024 was 7.6 - 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: Metformin 500mg bid, Jardiance 25mg qd Plan: - repeat A1c 9% - While inpatient, LDSSI and 3u lispro TIDAC Assessment & Plan (01/07/2025 8:01 AM CDT): - last A1c in 01/2024 was 7.6 - 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: Metformin 500mg bid, Jardiance 25mg qd Plan: - repeat A1c 9% - While inpatient, LDSSI and 3u lispro TIDAC Assessment & Plan (01/06/2025 5:43 PM CDT): - last A1c in 01/2024 was 7.6 - 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: Metformin 500mg bid, Jardiance 25mg qd Plan: - repeat A1c 9% - While inpatient, LDSSI and 3u lispro TIDAC Assessment & Plan (01/05/2025 7:17 AM CDT): - last A1c in 01/2024 was 7.6 - 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: Metformin 500mg bid, Jardiance 25mg qd Plan: - repeat A1c 9% - While inpatient, LDSSI Assessment & Plan (01/04/2025 6:51 AM CDT): - last A1c in 01/2024 was 7.6 - 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: Metformin 500mg bid, Jardiance 25mg qd Plan: - repeat A1c 9% - While inpatient, LDSSI Assessment & Plan (01/03/2025 8:14 AM CDT): - last A1c in 01/2024 was 7.6 - 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: Metformin 500mg bid, Jardiance 25mg qd Plan: - repeat A1c 9% - While inpatient, LDSSI Assessment & Plan (01/02/2025 5:27 AM CDT): - last A1c in 01/2024 was 7.6 - 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: Metformin 500mg bid, Jardiance 25mg qd Plan: - repeat A1c - While inpatient, LDSSI HTN (hypertension) 07/25/2023 Assessment & Plan (01/09/2025 8:41 AM CDT): - 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: Amlodipine 5mg every day, Toprol 50mg every day - Holding amlodipine due to hypotension - Reduced dose of metoprolol XL to 25mg/d Assessment & Plan (01/08/2025 8:18 AM CDT): - 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: Amlodipine 5mg every day, Toprol 50mg every day - Holding amlodipine due to hypotension - Reduced dose of metoprolol XL to 25mg/d Assessment & Plan (01/07/2025 8:01 AM CDT): - 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: Amlodipine 5mg every day, Toprol 50mg every day - Holding amlodipine due to hypotension - Reduced dose of metoprolol XL to 25mg/d Assessment & Plan (01/06/2025 8:17 AM CDT): - 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: Amlodipine 5mg every day, Toprol 50mg every day - Holding due to hypotension Assessment & Plan (01/05/2025 7:17 AM CDT): - 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: Amlodipine 5mg every day, Toprol 50mg every day - Holding due to hypotension Assessment & Plan (01/04/2025 6:51 AM CDT): - 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: Amlodipine 5mg every day, Toprol 50mg every day - Holding due to hypotension Assessment & Plan (01/03/2025 8:14 AM CDT): - 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: Amlodipine 5mg every day, Toprol 50mg every day - Holding due to hypotension Assessment & Plan (01/02/2025 5:27 AM CDT): - 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: Amlodipine 5mg every day, Toprol 50mg every day Hyperlipidemia 07/25/2023 CAD (coronary artery disease) 07/25/2023 Assessment & Plan (01/09/2025 8:41 AM CDT): - 2003 CABG (MASSEY to LAD, SVG to OM) - 2014 - NSTEMI s/p PCI x2 JOSE A in mid-RCA and POBA ostium of RPL - Continue 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: ASA 81mg, Crestor 40mg every day Assessment & Plan (01/08/2025 8:18 AM CDT): - 2003 CABG (MASSEY to LAD, SVG to OM) - 2014 - NSTEMI s/p PCI x2 JOSE A in mid-RCA and POBA ostium of RPL - Continue 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: ASA 81mg, Crestor 40mg every day Assessment & Plan (01/07/2025 8:01 AM CDT): - 2003 CABG (MASSEY to LAD, SVG to OM) - 2014 - NSTEMI s/p PCI x2 JOSE A in mid-RCA and POBA ostium of RPL - Continue 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: ASA 81mg, Crestor 40mg every day Assessment & Plan (01/06/2025 8:17 AM CDT): - 2003 CABG (MASSEY to LAD, SVG to OM) - 2014 - NSTEMI s/p PCI x2 JOSE A in mid-RCA and POBA ostium of RPL - Continue 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: ASA 81mg, Crestor 40mg every day Assessment & Plan (01/05/2025 7:17 AM CDT): - 2003 CABG (MASSEY to LAD, SVG to OM) - 2014 - NSTEMI s/p PCI x2 JOSE A in mid-RCA and POBA ostium of RPL - Continue 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: ASA 81mg, Crestor 40mg every day Assessment & Plan (01/04/2025 6:51 AM CDT): - 2003 CABG (MASSEY to LAD, SVG to OM) - 2014 - NSTEMI s/p PCI x2 JOSE A in mid-RCA and POBA ostium of RPL - Continue 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: ASA 81mg, Crestor 40mg every day Assessment & Plan (01/03/2025 4:29 PM CDT): - 2003 CABG (MASSEY to LAD, SVG to OM) - 2014 - NSTEMI s/p PCI x2 JOSE A in mid-RCA and POBA ostium of RPL - Continue 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: ASA 81mg, Crestor 40mg every day Assessment & Plan (01/02/2025 5:27 AM CDT): - 2003 CABG (MASSEY to LAD, SVG to OM) - 2014 - NSTEMI s/p PCI x2 JOSE A in mid-RCA and POBA ostium of RPL - 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: ASA, Crestor 40mg every day MIRYAM on CPAP 07/25/2023 Assessment & Plan (01/09/2025 8:41 AM CDT): - Home CPAP now that AMS is improved - Tele for SpO2 Assessment & Plan (01/08/2025 8:18 AM CDT): - Home CPAP now that AMS is improved - Tele for SpO2 Assessment & Plan (01/07/2025 8:01 AM CDT): - Home CPAP now that AMS is improved - Tele for SpO2 Assessment & Plan (01/06/2025 5:43 PM CDT): - Home CPAP now that AMS is improved - Tele for SpO2 Assessment & Plan (01/05/2025 7:17 AM CDT): - No CPAP d/t AMS - Tele for SpO2 Assessment & Plan (01/04/2025 6:51 AM CDT): - No CPAP d/t AMS - Tele for SpO2 Assessment & Plan (01/03/2025 4:29 PM CDT): - No CPAP d/t AMS - Tele for SpO2 Assessment & Plan (01/02/2025 5:27 AM CDT): - CPAP nightly Sacral decubitus ulcer, stage IV 07/17/2023 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 male with PMH including: CAD, [...] left. Assessment & Plan (06/08/2024 4:14 PM AGRICULTURAL RESEARCH ENGINEER): This is essentially unchanged. Assessment & Plan [...] months. 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 Appears to remain stable. 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 I think this continues to need surveillance and I suggested a follow-up with ear cleaning under the microscope in about 6 months. He understands and would like to go ahead and pursue that also. Assessment & Plan (05/31/2022 8:56 AM AGRICULTURAL RESEARCH ENGINEER): Still has significant retraction of his left [...] months. Assessment & Plan (09/17/2022 4:59 PM AGRICULTURAL RESEARCH ENGINEER): Cerumen was removed bilaterally without much difficulty. He tolerated that well. I recommended a follow-up in about 6 months. Assessment & Plan (05/31/2022 8:55 AM AGRICULTURAL RESEARCH ENGINEER): Lot of wax removed on the left side of the microscope. He tolerated this well. I recommended continued follow-up for cleaning. Will see him in about 3 months. Pilonidal cyst 05/09/2022 Overview (05/09/2022): Added automatically from request for surgery [id number] Encounters Date Type Department Care Team Description 01/10/2025 SHOP/CHAP Initial Eligibility Review [facility] OP CASE MANAGEMENT [address] [place] [address] Azra Sahu RN 01/03/2025 11:40 AM CDT Ancillary Procedure [facility] Vascular Lab IP [address] [facility] [address] [place] [address] 01/01/2025 7:26 PM CDT - 01/09/2025 8:11 PM CDT Hospital Encounter [facility] 1 [place] [address] Azra Davila MD Freilich, Michelle Amanda, MD Berg, MD Steven Ochoa Paulina, MD Abdominal pain (Primary Dx); Perforation of bladder during operative procedure Discharge Disposition: Discharge to home or self care 12/30/2024 Telephone [facility] Otolaryngology [address] [place] [address] Soraida Buchanan LPN Cancel CT temporal bones 12/24/2024 Orders Only [facility] Cardiology [address] [place] [phone] Leonardo Molina MD 12/19/2024 Telephone [facility] Cardiology [address] [place] [address] [place] [address] Lizbeth Ward NP 12/18/2024 5:31 PM CDT - 12/18/2024 11:59 PM CDT Hospital Encounter [facility] [address] [place] [address] Discharge Disposition: Discharge to home or self care 12/16/2024 Orders Only [facility] Cardiology [address] [place] [address] Leonardo Molina MD 12/13/2024 Telephone [facility] [address] [facility] 3rd Floor [address] [place] [phone] Prisca Arcos MA Scheduling Appointments 12/12/2024 Orders Only [facility] Cardiology [address] [place] [address] Leonardo Molina MD 12/09/2024 Telephone [facility] Urology [address] [place] [address] 11th [place] [address] [place] [address] Reyna Morgan MD 12/01/2024 Telephone Urology Queenie Wall MD 11/27/2024 2:30 PM CDT - 11/27/2024 4:35 PM CDT Surgery [facility] Operating Room 1 [place] [address] Reyna Morgan MD CYSTOSCOPY - TRANSURETHRAL RESECTION BLADDER TUMOR 11/27/2024 1:43 PM CDT Anesthesia Event [facility] Operating Room 1 [place] [address] Blayne Edgar MD Lentz, William Thomas, NP 11/27/2024 11:39 AM CDT - 11/27/2024 5:17 PM CDT Hospital Encounter [facility] Operating Room 1 [place] [address] Reyna Morgan MD Gross hematuria Discharge Disposition: Discharge to home or self care 11/18/2024 1:30 PM CDT [facility] [address] [facility] 3rd Floor [address] [place] [phone] Non-healing surgical wound, sequela (Primary Dx); 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); Skin ulcer of left groin with fat layer exposed (HCC); Pain associated with wound; At risk for infection associated with wound; Delayed wound healing; Open wound of left upper extremity, initial encounter 11/18/2024 11:15 AM CDT Office Visit [facility] Dermatology [address] [facility] [address] [place] [phone] Rachel Domínguez MD PhD Excoriation (Primary Dx); Pyoderma gangrenosum (HCC) 10/29/2024 1:00 PM CDT Office Visit [facility] Otolaryngology [address] [place] [phone] Gabino Chavez MD Dysfunction of both eustachian tubes (Primary Dx); Cholesteatoma of attic of left ear 10/25/2024 Telephone [facility] Otolaryngology [address] [place] [phone] Soraida Buchanan LPN Refill ear drops 10/24/2024 2:48 PM CDT - 10/24/2024 11:59 PM CDT Hospital Encounter [facility] [address] [place] [address] Gross hematuria Discharge Disposition: Discharge to home or self care 10/24/2024 9:59 AM CDT - 10/24/2024 11:59 PM CDT Hospital Encounter [facility] [address] [facility] 3rd [place] [address] Gross hematuria Discharge Disposition: Discharge to home or self care 10/24/2024 9:20 AM CDT Office Visit [facility] ([facility] Urology [facility] 11th [place] [address] [place] [phone] Reyna Morgan MD Gross hematuria (Primary Dx) 10/24/2024 Orders Only [facility] Dermatology [address] [facility] [address] [place] [address] Catie Hale CMA Pyoderma gangrenosum (HCC) (Primary Dx) 10/17/2024 1:00 PM CDT [facility] [address] [place] [address] Health 3rd Floor [address] [place] [phone] Delayed wound healing (Primary Dx); Pain associated with wound; At risk for infection associated with wound; Pyoderma gangrenosum (HCC); Non-healing surgical wound, sequela; 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); Skin ulcer of left groin with fat layer exposed (HCC); 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) 10/14/2024 12:45 PM CDT Office Visit [facility] Dermatology [address] [place] [address] [address] [place] [phone] Rachel Domínguez MD PhD Pyoderma gangrenosum (HCC) (Primary Dx) from Last 3 Months Immunizations Immunization Administration Dates Next Due Influenza, Quadrivalent, Hig h Dose, Preservative Free, Intrr 04/06/2021,04/01/2020 Influenza, Trivalent, Adjuva nted, Intramuscular 04/24/2018,04/23/2018,04/23/2017 Influenza, Trivalent, High D ose, Split, Preservative Free, Intramuscular 04/08/2019 Pneumococcal Conjugate PCV 13 04/24/2018, 018 Pneumococcal Polysaccharide PPV23 04/06/2021 Tdap 05/06/2013 Surgical History Surgery Date Site/Laterality Comments CORONARY ARTERY BYPASS GRAFT 07/10/2003 - 07/09/2004 CABG COLONOSCOPY 07/10/2018 - 07/09/2019 COLON SURGERY 07/10/2003 - 07/09/2004 WOUND DEBRIDEMENT 05/17/2022 s/p rectal cyst removal CARDIAC STENT PLACEMENT 07/10/2017 - 07/09/2018 [facility] x3, Dr. Muhammad CYST REMOVAL 08/10/2021 - [...] making you feel afraid or unsafe? Denies 01/01/2025 Sex and Gender Information Value Date Recorded Sex Assigned at Not on file Legal Sex Male 8:51 PM AGRICULTURAL RESEARCH ENGINEER Gender Identity Not on file Sexual Orientation Not on file Obstetrics History Last Filed Vital Signs Vital Sign Reading Time Taken Comments Blood Pressure 114/63 01/09/2025 8:04 PM CDT Pulse 98 01/09/2025 8:04 PM CDT Temperature 36.8 C (98.2 F) 01/09/2025 3:13 PM CDT Respiratory Rate 16 01/09/2025 8:04 PM CDT Oxygen Saturation 100% 01/09/2025 8:04 PM CDT Inhaled Oxygen Concentration - - Weight 95.2 kg (209 lb 14.1 oz) 01/03/2025 5:13 PM CDT Height 184.4 cm (6' 0.6) 01/03/2025 5:13 PM CDT Body Mass Index 28 01/03/2025 5:13 PM CDT Plan of Treatment Health Maintenance Due Date Last Done Comments Albumin Creatinine Ratio, Urine 1942 Depression Screening 1942 Dilated Eye Exam 1942 Foot Exam 1942 Hepatitis B Screening 01/15/1960 Zoster Vaccine (1 of 2) 01/15/1992 Well Visit 65+ 2007 DTaP/Tdap/Td Vaccine (2 - Td or Tdap) 05/06/2023 05/06/2013 Covid-19 Vaccine (4 - 2023-2 5 season) 2024 04/16/2021, 08/24/2020, 08/03/2020 Lipid Panel 01/24/2025 01/25/2024, 02/2024, 05/11/2022, Additional history exists Influenza Vaccine (#1) 2025 , 04/01/2020, 04/08/2019, Additional history exists Hemoglobin A1C 07/04/2025 01/02/2025, 12/09, 01/25/2024, Additional history exists eGFR 01/08/2026 01/08/2025, 070 07/2024, 01/06/2025, Additional history exists Fall Risk Assessment 01/09/2026 01/09/2025 Pneumococcal vaccine 65+ Completed 021, 04/24/2018, 04/23/2018 Abdominal Aortic Aneurysm (A AA) Screen Completed 01/07/2025, 02/16/2024 Medical Devices Implanted Type Area Waste Water Plant Operator Device Identifier Shelf Expiration Date Model / Serial / Lot Stent Stent Heart Description:X3 [employer] 6fr 28cm Firm Positioner Monofilament Tether Stent [id number] - Sn/A - [id number] Implanted:Qty: 1 on 05/16/2024 by Reyna Morgan MD at [facility] Stent Left: [employer] 03/08/2027 [id number] / N/A / [id number] Procedures Procedure Name Priority Date/Time Associated Diagnosis Comments POCT GLUCOSE DEVICE Routine 01/09/2025 4 :33 PM CDT POCT GLUCOSE DEVICE Routine 01/09/2025 1 1:19 AM CDT POCT GLUCOSE DEVICE Routine 01/09/2025 7 :31 AM CDT PROTIME-INR Routine 01/08/2025 11:40 PM CDT EGFR Routine 01/08/2025 11:40 PM CDT DIFFERENTIAL AUTO Routine 01/08/2025 11: 40 PM CDT HEPATIC FUNCTION PANEL STAT 01/08/2025 11:40 PM CDT APTT Routine 01/08/2025 11:40 PM CDT PHOSPHORUS Routine 01/08/2025 11:40 PM CDT MAGNESIUM Routine 01/08/2025 11:40 PM CDT CBC WITH AUTO DIFFERENTIAL Routine 01/08/2025 11:40 PM CDT BASIC METABOLIC PANEL Routine 01/08/2025 11:40 PM CDT POCT GLUCOSE DEVICE Routine 01/08/2025 8 :11 PM CDT POCT GLUCOSE DEVICE Routine 01/08/2025 4 :31 PM CDT COVID-19 CORONAVIRUS RNA Routine 01/08/2025 3:17 PM CDT CRITICAL RESULT CALLBACK HEMATOLOGY Routine 01/08/2025 12:07 PM CDT CALCIUM, IONIZED Routine 01/08/2025 12:0 7 PM CDT APTT Routine 01/08/2025 12:07 PM CDT POCT GLUCOSE DEVICE Routine 01/08/2025 1 1:12 AM CDT POCT GLUCOSE DEVICE Routine 01/08/2025 7 :12 AM CDT APTT Routine 01/08/2025 5:05 AM CDT APTT Routine 01/07/2025 10:24 PM CDT EGFR Routine 01/07/2025 10:19 PM CDT DIFFERENTIAL AUTO Routine 01/07/2025 10: 19 PM CDT PHOSPHORUS Routine 01/07/2025 10:19 PM CDT MAGNESIUM Routine 01/07/2025 10:19 PM CDT CBC WITH AUTO DIFFERENTIAL Routine 01/07/2025 10:19 PM CDT BASIC METABOLIC PANEL Routine 01/07/2025 10:[address] ABDOMEN PELVIS W CONTRAST IP Routine 01/07/2025 8:44 PM CDT POCT GLUCOSE DEVICE Routine 01/07/2025 8 :24 PM CDT POCT GLUCOSE DEVICE Routine 01/07/2025 4 :15 PM CDT POCT GLUCOSE DEVICE Routine 01/07/2025 1 1:06 AM CDT POCT GLUCOSE DEVICE Routine 01/07/2025 7 :15 AM CDT EGFR Routine 01/06/2025 10:44 PM CDT PHOSPHORUS Routine 01/06/2025 10:44 PM CDT DIFFERENTIAL AUTO Routine 01/06/2025 10: 44 PM CDT APTT Routine 01/06/2025 10:44 PM CDT TYPE AND SCREEN Timed 01/06/2025 10:44 PM CDT MAGNESIUM Routine 01/06/2025 10:44 PM CDT CBC WITH AUTO DIFFERENTIAL Routine 01/06/2025 10:44 PM CDT BASIC METABOLIC PANEL Routine 01/06/2025 10:44 PM CDT POCT GLUCOSE DEVICE Routine 01/06/2025 8 :33 PM CDT POCT GLUCOSE DEVICE Routine 01/06/2025 4 :53 PM CDT POCT GLUCOSE DEVICE Routine 01/06/2025 1 1:38 AM CDT POCT GLUCOSE DEVICE Routine 01/06/2025 7 :41 AM CDT APTT Routine 01/06/2025 6:12 AM CDT EGFR Routine 01/06/2025 12:21 AM CDT DIFFERENTIAL AUTO Routine 01/06/2025 12: 21 AM CDT APTT Timed 01/06/2025 12:21 AM CDT MAGNESIUM Routine 01/06/2025 12:21 AM CDT CBC WITH AUTO DIFFERENTIAL Routine 01/06/2025 12:21 AM CDT BASIC METABOLIC PANEL Routine 01/06/2025 12:21 AM CDT POCT GLUCOSE DEVICE Routine 01/05/2025 8 :29 PM CDT POCT GLUCOSE DEVICE Routine 01/05/2025 4 :47 PM CDT APTT STAT 01/05/2025 4:10 PM CDT POCT GLUCOSE DEVICE Routine 01/05/2025 1 2:25 PM CDT EGFR Timed 01/05/2025 8:00 AM CDT BASIC METABOLIC PANEL Timed 01/05/2025 8:00 AM CDT APTT Timed 01/05/2025 8:00 AM CDT POCT GLUCOSE DEVICE Routine 01/05/2025 4 :55 AM CDT POCT GLUCOSE DEVICE Routine 01/04/2025 1 1:51 PM CDT CRITICAL RESULT CALLBACK HEMATOLOGY Routine 01/04/2025 10:22 PM CDT APTT Routine 01/04/2025 10:22 PM CDT IRON PROFILE W/ IBC Routine 01/04/2025 1 0:21 PM CDT FERRITIN Routine 01/04/2025 10:21 PM CDT EGFR Routine 01/04/2025 10:21 PM CDT DIFFERENTIAL AUTO Routine 01/04/2025 10: 21 PM CDT MAGNESIUM Routine 01/04/2025 10:21 PM CDT CBC WITH AUTO DIFFERENTIAL Routine 01/04/2025 10:21 PM CDT BASIC METABOLIC PANEL Routine 01/04/2025 10:21 PM CDT POCT GLUCOSE DEVICE Routine 01/04/2025 8 :39 PM CDT POCT GLUCOSE DEVICE Routine 01/04/2025 4 :[address] CYSTOGRAM WO CONTRAST ED Urgent/IP Urgent 01/04/2025 1:21 PM CDT POCT GLUCOSE DEVICE Routine 01/04/2025 1 1:51 AM CDT POCT GLUCOSE DEVICE Routine 01/04/2025 7 :46 AM CDT EGFR Routine 01/04/2025 4:04 AM CDT DIFFERENTIAL AUTO Routine 01/04/2025 4:0 4 AM CDT APTT Routine 01/04/2025 4:04 AM CDT PROTIME-INR Routine 01/04/2025 4:04 AM CDT VANCOMYCIN LEVEL TROUGH Timed 01/04/2025 4:04 AM CDT CBC WITH AUTO DIFFERENTIAL Routine 01/04/2025 4:04 AM CDT BASIC METABOLIC PANEL Routine 01/04/2025 4:04 AM CDT POCT GLUCOSE DEVICE Routine 01/04/2025 3 :59 AM CDT POCT GLUCOSE DEVICE Routine 01/04/2025 1 2:24 AM CDT POCT GLUCOSE DEVICE Routine 01/03/2025 8 :07 PM CDT ANTITHROMBIN STAT 01/03/2025 7:03 PM CDT PROTIME-INR STAT 01/03/2025 7:03 PM CDT APTT STAT 01/03/2025 7:03 PM CDT POCT GLUCOSE DEVICE Routine 01/03/2025 6 :23 PM CDT US ABDOMEN LIMITED IP Routine 01/03/2025 6: 01 PM CDT POCT GLUCOSE DEVICE Routine 01/03/2025 4 :33 PM CDT US VEIN DUPLEX LOWER EXTREMITY BILATERAL COMPLETE IP Routine 01/03/2025 1:36 PM CDT POCT GLUCOSE DEVICE Routine 01/03/2025 1 1:14 AM CDT TRANSTHORACIC ECHO (TTE) COMPLETE W DOPPLER/CF W CONTRAST Routine 01/03/2025 9:19 AM CDT POCT GLUCOSE DEVICE Routine 01/03/2025 7 :22 AM CDT POCT GLUCOSE DEVICE Routine 01/03/2025 3 :55 AM CDT POCT GLUCOSE DEVICE Routine 01/02/2025 1 1:31 PM CDT POCT GLUCOSE DEVICE Routine 01/02/2025 7 :38 PM CDT POCT GLUCOSE DEVICE Routine 01/02/2025 4 :29 PM CDT POCT GLUCOSE DEVICE Routine 01/02/2025 1 :03 PM CDT APTT STAT 01/02/2025 10:38 AM CDT PROTIME-INR STAT 01/02/2025 10:38 AM CDT POCT GLUCOSE DEVICE Routine 01/02/2025 7 :25 AM CDT ECG 12-LEAD STAT 01/02/2025 7:13 AM CDT HEMOGLOBIN A1C Routine 01/02/2025 5:14 AM CDT EGFR Routine 01/02/2025 5:14 AM CDT DIFFERENTIAL AUTO Routine 01/02/2025 5:1 4 AM CDT BASIC METABOLIC PANEL Routine 01/02/2025 5:14 AM CDT CBC WITH AUTO DIFFERENTIAL Routine 01/02/2025 5:14 AM CDT POCT GLUCOSE DEVICE Routine 01/02/2025 1 2:47 AM CDT ME CRITICAL CARE ILL/INJURED PATIENT INIT 30-74 MIN Routine 01/01/2025 10:[address] CYSTOGRAM WO CONTRAST ED Urgent/IP Urgent 01/01/2025 9:57 PM CDT URINALYSIS, MICROSCOPIC ONLY STAT 01/01/2025 9:00 PM CDT URINE CULTURE STAT 01/01/2025 9:00 PM CDT URINALYSIS AND REFLEX TO MICROSCOPIC AND CULTURE STAT 01/01/2025 9:00 PM CDT BLOOD CULTURE STAT 01/01/2025 8:[address] BODY OUTSIDE CONSULT Routine 01/01/2025 8:03 PM CDT BLOOD CULTURE STAT 01/01/2025 8:03 PM CDT DIFFERENTIAL AUTO STAT 01/01/2025 7:5 1 PM CDT EGFR STAT 01/01/2025 7:51 PM CDT TYPE AND SCREEN STAT 01/01/2025 7:51 PM CDT SEPSIS LACTATE WITH REFLEX STAT 01/01/2025 7:51 PM CDT COMPREHENSIVE METABOLIC PANEL STAT 01/01/2025 7:51 PM CDT CBC WITH AUTO DIFFERENTIAL STAT 01/01/2025 7:51 PM CDT POCT GLUCOSE DEVICE Routine 01/01/2025 7 :49 PM CDT EGFR Routine 12/18/2024 4:30 PM CDT DIFFERENTIAL AUTO Routine 12/18/2024 4:3 0 PM CDT VANCOMYCIN LEVEL TROUGH Routine 12/18/2024 4:30 PM CDT CBC WITH AUTO DIFFERENTIAL Routine 12/18/2024 4:30 PM CDT COMPREHENSIVE METABOLIC PANEL Routine 12/18/2024 4:30 PM CDT CARDIOLOGY DOCUMENT SCAN Routine 12/13/2024 4:38 PM CDT CARDIOLOGY DOCUMENT SCAN Routine 12/13/2024 4:02 PM CDT CARDIOLOGY DOCUMENT SCAN Routine 12/11/2024 12:08 PM CDT POCT GLUCOSE DEVICE Routine 11/27/2024 3 :11 [...] DRESSING Routine 10/17/2024 1: 31 PM CDT LIPID PANEL Routine 01/25/2024 11:36 AM CDT Sacral wound, initial encounter from Last 3 Months or Most Recently Relevant to Health Maintenance Results * POCT glucose (01/09/2025 4:33 PM CDT) Glucose, POC 191 70 - 199 mg/dL Blood 01/09/2025 4:33 PM CDT 01/09/2025 4:33 PM CDT Rebecca Garcia MD LAB POCT ORDERABLES - BERENIEC CE Final [facility] Department [place] [address] * (ABNORMAL) POCT glucose (01/09/2025 11:19 AM CDT) Glucose, POC 269(H) 70 - 199 mg/dL Blood 01/09/2025 11:1 9 AM CDT 01/09/2025 11:19 AM CDT Rebecca Garcia MD LAB POCT ORDERABLES - BERENICE CE Final Result [facility] [place] [address] * POCT glucose (01/09/2025 7:31 AM CDT) Glucose, POC 170 70 - 199 mg/dL Blood 01/09/2025 7:31 AM CDT 01/09/2025 7:31 AM CDT Rebecca Garcia MD LAB POCT ORDERABLES - BERENICE CE Final Result Performing Organization Address City/[facility] Co de Phone Number [facility] Department [place] [address] * eGFR (01/08/2025 11:40 PM CDT) eGFR 79 >=60 mL/min/1. 73 m2 Comment: Interpretive Data [...] interpretive data was last reviewed 2021. Blood 01/08/2025 11:4 0 PM CDT 01/09/2025 12:21 AM CDT Rebecca Garcia MD LAB BLOOD ORDERABLES Final Result Performing Organization Address City/[facility]/ZIP Co de Phone Number [facility] Department [place] [address] * (ABNORMAL) Differential, auto (01/08/2025 11:40 PM CDT) Neutrophil abs 8.91(H) 1.50 - 6.50 K/cumm Imm gran abs 0.19(H) 0.00 - 0.10 K/cumm [facility] Lymphocyte abs 0.80 0.80 - 3.30 K/cumm [facility] Monocyte abs 0.44 0.20 - 0.80 K/cumm [facility] Eosinophil abs 0.04 0.00 - 0.50 K/cumm [facility] Basophil abs 0.01 0.00 - 0.10 K/cumm [facility] Neutrophil pct 85.8 % [facility] Comment: Interpretive Data Percent cell count reference ranges are not reported, since discordance with absolute values may lead to misinterpretation of CBC data. Current Interpretive Data was last revised on 2017. Imm gran pct 1.8 % [facility] Comment: Interpretive Data Percent cell count reference ranges are not reported, since discordance with absolute values may lead to misinterpretation of CBC data. Current Interpretive Data was last revised on 2017. Lymphocyte pct 7.7 % [facility] Comment: Interpretive Data Percent cell count reference ranges are not reported, since discordance with absolute values may lead to misinterpretation of CBC data. Current Interpretive Data was last revised on 2017. Monocyte pct 4.2 % [facility] Comment: Interpretive Data Percent cell count reference ranges are not reported, since discordance with absolute values may lead to misinterpretation of CBC data. Current Interpretive Data was last revised on 2017. Eosinophil pct 0.4 % [facility] Comment: Interpretive Data Percent cell count reference ranges are not reported, since discordance with absolute values may lead to misinterpretation of CBC data. Current Interpretive Data was last revised on 2017. Basophil pct 0.1 % [facility] Comment: Interpretive Data Percent cell count reference ranges are not reported, since discordance with absolute values may lead to misinterpretation of CBC data. Current Interpretive Data was last revised on 2017. Blood 01/08/2025 11:4 0 PM CDT 01/09/2025 12:21 AM CDT us Rebecca Garcia MD LAB BLOOD ORDERABLES Final Result [facility] Department [place] [address] * (ABNORMAL) CBC with auto differential (01/08/2025 11:40 PM CDT) [facility] WBC 10.39(H) 3.80 - 9.90 K/cumm Hgb 8.9(L) 13.0 - 17.5 g/dL [facility] Hct 27.4(L) 38.9 - 50.3 % [facility] Plt 151 150 - 400 K/cumm [facility] MPV 10.3 9.1 - 12.3 fL [facility] RBC 3.14(L) 4.30 - 5.80 M/cumm [facility] MCV 87.3 81.3 - 96.4 fL [facility] MCH 28.3 27.1 - 33.3 pg [facility] MCHC 32.5 32.3 - 35.7 g/dL [facility] RDW CV 18.6(H) 11.1 - 14.9 % [facility] RDW SD 57.3(H) 35.7 - 48.1 fL [facility] NRBC abs 0.00 0.00 - 0.01 K/cumm [facility] Blood 01/08/2025 11:4 0 PM CDT 01/09/2025 12:21 AM CDT us Rebecca Garcia MD LAB BLOOD ORDERABLES Final Result [facility] Department [place] [address] * aPTT (01/08/2025 11:40 PM CDT) [facility] aPTT 30 28 - 38 sec Comment: Interpretive Data Heparin therapeutic range: 66.0 - 100.0 seconds. Range based on correlation with therapeutic heparin activity range of 0.3 - 0.7 Units/mL. Current interpretive data was last revised on 2023. Blood 01/08/2025 11:4 0 PM CDT 01/09/2025 12:18 AM CDT Rebecca Garcia MD LAB BLOOD ORDERABLES Final Result Performing Organization Address City/[facility] Co de Phone Number [facility] [place] [address] * Protime-INR (01/08/2025 11:40 PM CDT) PT 11.9 9.7 - 13.0 sec INR 1.10 0.90 - 1.20 [facility] Comment: Interpretive data Oral anticoagulant therapeutic ranges: Venous thromboembolism prophylaxis or treatment: 2.0-3.0 CARDIOLOGY Standard range: 2.0-3.0 High-intensity range: 2.5-3.5 Refer to indication-specific guidelines for appropriate target ranges for prosthetic heart valve replacement. Current interpretive data was last revised on 2019. Blood 01/08/2025 11:4 0 PM CDT 01/09/2025 12:18 AM CDT Rebecca Garcia MD LAB BLOOD ORDERABLES Final Result Performing Organization Address [facility] [place] [address] * Phosphorus (01/08/2025 11:40 PM CDT) Phosphorus, pl 2.3 2.3 - 4.5 mg/dL Blood 01/08/2025 11:4 0 PM CDT 01/09/2025 12:21 AM CDT Rebecca Garcia MD LAB BLOOD ORDERABLES Final Result Performing Organization Address City/[facility] [place] [address] * Magnesium (01/08/2025 11:40 PM CDT) Magnesium 2.1 1.4 - 2.5 mg/dL Blood 01/08/2025 11:4 0 PM CDT 01/09/2025 12:21 AM CDT Rebecca Garcia MD LAB BLOOD ORDERABLES Final Result Performing Organization Address City/[facility]/ZIP Co de Phone Number [facility] [place] [address] * (ABNORMAL) Hepatic function panel (01/08/2025 11:40 PM CDT) Bilirubin, total 0.4 0.1 - 1.2 mg/dL Bilirubin, direct 0.2 0.1 - 0.3 mg/dL [facility] Protein, pl 5.6(L) 6.5 - 8.5 g/dL [facility] Albumin 2.6(L) 3.5 - 5.0 g/dL [facility] Alk phos 96 40 - 130 Units/L [facility] ALT 30 7 - 55 Units/L [facility] AST 24 10 - 50 Units/L [facility] Blood 01/08/2025 11:4 0 PM CDT 01/09/2025 12:21 AM CDT Narrative [facility] - 01/09/2025 12:48 AM CDT Baseline prior to apixaban initiation. Rebecca Garcia MD LAB BLOOD ORDERABLES Final Result Performing Organization Address City/[facility]/ZIP Co de Phone Number [facility] Department [place] [address] * (ABNORMAL) Basic metabolic panel (01/08/2025 11:40 PM CDT) Sodium 141 135 - 145 mmol/L Potassium, pl 4.3 3.3 - 4.9 mmol/L [facility] Chloride 108 97 - 110 mmol/L [facility] CO2 24 22 - 32 mmol/L [facility] Anion gap 9 2 - 15 mmol/L [facility] BUN 14 6 - 25 mg/dL [facility] Creatinine 0.96 0.80 - 1.30 mg/dL [facility] Glucose 164 70 - 199 mg/dL [facility] Comment: Interpretive Data Fasting glucose >/= 126 mg/dl is diagnostic for diabetes. Fasting is defined as no caloric intake for at least 8 hours. Fasting glucose between 100 mg/dl to 125 mg/dl is diagnostic of prediabetes. In a patient with classic symptoms of hyperglycemia or hyperglycemic crisis, a random glucose >/= 200 mg/dl is diagnostic for diabetes. In the absence of unequivocal hyperglycemia, results should be confirmed by repeat testing. The classification and Diagnosis of Diabetes Diabetes Care 2021; 46: S19-S40. Current interpretive data was last revised 2022. Calcium 8.0(L) 8.5 - 10.3 mg/dL [facility] Blood 01/08/2025 11:4 0 PM CDT 01/09/2025 12:21 AM CDT Rebecca Garcia MD LAB BLOOD ORDERABLES Final Result Performing Organization Address City/[facility]/ZIP Co de Phone Number [facility] Department [place] [address] * (ABNORMAL) POCT glucose (01/08/2025 8:11 PM CDT) Glucose, POC 221(H) 70 - 199 mg/dL Blood 01/08/2025 8:11 PM CDT 01/08/2025 8:11 PM CDT Rebecca Garcia MD LAB POCT ORDERABLES - BERENICE CE Final Result [facility] Department [place] [address] * (ABNORMAL) POCT glucose (01/08/2025 4:31 PM CDT) Glucose, POC 211(H) 70 - 199 mg/dL Blood 01/08/2025 4:31 PM CDT 01/08/2025 4:31 PM CDT Rebecca Garcia MD LAB POCT ORDERABLES - BERENICE CE Final Result Performing Organization Address City/[facility] Co de Phone Number [facility] [place] [address] * COVID-19 Coronavirus RNA Nasopharyngeal (01/08/2025 3:17 PM CDT) COVID-[address] [facility] Nasopharyngeal 01/08/2025 3 :17 PM CDT 01/08/2025 3:58 PM [address] [facility] - 01/08/2025 4:53 PM CDT Is the patient experiencing any symptoms consistent with COVID (eg. Fever, cough, shortness of breath)?->No What is the reason for testing?->Screening for semi-private room placement Interpretive data Testing performed by [facility] ([phone]). This test is performed using the [employer] Xpert Xpress CoV-2 plus assay. This is a real-time RT-PCR test intended for the qualitative detection of nucleic acid from the SARS-CoV-2. This assay has been cleared by the [place] Food and Drug administration. The performance characteristics have been verified by the [facility]. Results must be considered in the clinical context, and a negative result does not rule out infection. Interpretive data last revised 2024. Interpretive data Testing performed by [facility] ([phone]). This test is performed using the [employer] Xpert Xpress CoV-2 plus assay. This is a real-time RT-PCR test intended for the qualitative detection of nucleic acid from the SARS-CoV-2. This assay has been cleared by the [place] Food and Drug administration. The performance characteristics have been verified by the [facility]. Results must be considered in the clinical context, and a negative result does not rule out infection. Interpretive data last revised 2024. Rebecca Garcia MD LAB MICROBIOLOGY - GENERAL ORDERABLES Final Result Performing Organization Address City/[facility] [place] [address] [facility] * Critical Result Callback Hematology (01/08/2025 12:07 PM CDT) Date Notified [id number] Time Notified 13:[address] [facility] TestName aPTT [facility] Called/Read Back Chula [facility] Credentials RN [facility] Called By [facility] Blood 01/08/2025 12:0 7 PM CDT 01/08/2025 12:31 PM CDT Rebecca Garcia MD LAB BLOOD ORDERABLES Final Result Performing Organization Address [facility] [place] [address] * Calcium, ionized (01/08/2025 12:07 PM CDT) Pathologist [facility] Calcium, Ionized 4.58 4.50 - 5.10 mg/dL Blood 01/08/2025 12:0 7 PM CDT 01/08/2025 12:21 PM CDT Rebecca Garcia MD LAB BLOOD ORDERABLES Final Result Performing Organization Address [facility] de Phone Number [facility] Department [place] [address] * (ABNORMAL) aPTT (01/08/2025 12:07 PM CDT) Pathologist [facility] aPTT >150(C) 28 - 38 sec Comment: No clot detected in sample Repeated and verified - [id number] - 01/08/25, 1:06 PM Interpretive Data Heparin therapeutic range: 66.0 - 100.0 seconds. Range based on correlation with therapeutic heparin activity range of 0.3 - 0.7 Units/mL. Current interpretive data was last revised on 2023. Blood 01/08/2025 12:0 7 PM CDT 01/08/2025 12:21 PM CDT Rebecca Garcia MD LAB BLOOD ORDERABLES Final Result Performing Organization Address [facility] de Phone Number [facility] [place] [address] * (ABNORMAL) POCT glucose (01/08/2025 11:12 AM CDT) Glucose, POC 234(H) 70 - 199 mg/dL Blood 01/08/2025 11:1 2 AM CDT 01/08/2025 11:12 AM CDT Rebecca Gracia MD LAB POCT ORDERABLES - BERENICE CE Final Result Performing Organization Address [facility] de Phone Number [facility] [place] [address] * POCT glucose (01/08/2025 7:12 AM CDT) Glucose, POC 126 70 - 199 mg/dL Blood 01/08/2025 7:12 AM CDT 01/08/2025 7:12 AM CDT Rebecca Garcia MD LAB POCT ORDERABLES - BERENICE CE Final Result Performing Organization Address [facility] de Phone Number [facility] [place] [address] * aPTT (01/08/2025 5:05 AM CDT) aPTT 32 28 - 38 sec Comment: Interpretive Data Heparin therapeutic range: 66.0 - 100.0 seconds. Range based on correlation with therapeutic heparin activity range of 0.3 - 0.7 Units/mL. Current interpretive data was last revised on 2023. Blood 01/08/2025 5:05 AM CDT 01/08/2025 5:20 AM CDT Rebecca Garcia MD LAB BLOOD ORDERABLES Final Result Performing Organization Address [facility] Co de Phone Number [facility] [place] [address] * (ABNORMAL) aPTT (01/07/2025 10:24 PM CDT) aPTT 62(H) 28 - 38 sec Comment: Interpretive Data Heparin therapeutic range: 66.0 - 100.0 seconds. Range based on correlation with therapeutic heparin activity range of 0.3 - 0.7 Units/mL. Current interpretive data was last revised on 2023. Blood 01/07/2025 10:2 4 PM CDT 01/07/2025 10:39 PM CDT Rebecca Garcia MD LAB BLOOD ORDERABLES Final Result Performing Organization Address [facility] de Phone Number [facility] [place] [address] * eGFR (01/07/2025 10:19 PM CDT) eGFR 85 >=60 mL/min/1. 73 m2 Comment: Interpretive Data [...] interpretive data was last reviewed 2021. Blood 01/07/2025 10:1 9 PM CDT 01/07/2025 10:35 PM CDT us Rebecca Garcia MD LAB BLOOD ORDERABLES Final Result [facility] [place] [address] * (ABNORMAL) Differential, auto (01/07/2025 10:19 PM CDT) Neutrophil abs 10.38(H) 1.50 - 6.50 K/cumm Imm gran abs 0.24(H) 0.00 - 0.10 K/cumm [facility] Lymphocyte abs 0.97 0.80 - 3.30 K/cumm [facility] Monocyte abs 0.53 0.20 - 0.80 K/cumm [facility] Eosinophil abs 0.06 0.00 - 0.50 K/cumm [facility] Basophil abs 0.02 0.00 - 0.10 K/cumm [facility] Neutrophil pct 85.0 % [facility] Comment: Interpretive Data Percent cell count reference ranges are not reported, since discordance with absolute values may lead to misinterpretation of CBC data. Current Interpretive Data was last revised on 2017. Imm gran pct 2.0 % [facility] Comment: Interpretive Data Percent cell count reference ranges are not reported, since discordance with absolute values may lead to misinterpretation of CBC data. Current Interpretive Data was last revised on 2017. Lymphocyte pct 8.0 % [facility] Comment: Interpretive Data Percent cell count reference ranges are not reported, since discordance with absolute values may lead to misinterpretation of CBC data. Current Interpretive Data was last revised on 2017. Monocyte pct 4.3 % [facility] Comment: Interpretive Data Percent cell count reference ranges are not reported, since discordance with absolute values may lead to misinterpretation of CBC data. Current Interpretive Data was last revised on 2017. Eosinophil pct 0.5 % [facility] Comment: Interpretive Data Percent cell count reference ranges are not reported, since discordance with absolute values may lead to misinterpretation of CBC data. Current Interpretive Data was last revised on 2017. Basophil pct 0.2 % [facility] Comment: Interpretive Data Percent cell count reference ranges are not reported, since discordance with absolute values may lead to misinterpretation of CBC data. Current Interpretive Data was last revised on 2017. Blood 01/07/2025 10:1 9 PM CDT 01/07/2025 10:35 PM CDT us Rebecca Garcia MD LAB BLOOD ORDERABLES Final Result [facility] Department [place] [address] * (ABNORMAL) CBC with auto differential (01/07/2025 10:19 PM CDT) WBC 12.20(H) 3.80 - 9.90 K/cumm Hgb 8.3(L) 13.0 - 17.5 g/dL [facility] Hct 25.7(L) 38.9 - 50.3 % [facility] Plt 144(L) 150 - 400 K/cumm [facility] MPV 10.0 9.1 - 12.3 fL [facility] RBC 2.95(L) 4.30 - 5.80 M/cumm [facility] MCV 87.1 81.3 - 96.4 fL [facility] MCH 28.1 27.1 - 33.3 pg [facility] MCHC 32.3 32.3 - 35.7 g/dL [facility] RDW CV 18.0(H) 11.1 - 14.9 % [facility] RDW SD 55.6(H) 35.7 - 48.1 fL [facility] NRBC abs 0.00 0.00 - 0.01 K/cumm [facility] Blood 01/07/2025 10:1 9 PM CDT 01/07/2025 10:35 PM CDT Rebecca Garcia MD LAB BLOOD ORDERABLES Final Result Performing Organization Address City/[facility] Co de Phone Number [facility] [address] * (ABNORMAL) Phosphorus (01/07/2025 10:19 PM CDT) [facility] Phosphorus, pl 1.5(L) 2.3 - 4.5 mg/dL Blood 01/07/2025 10:1 9 PM CDT 01/07/2025 10:35 PM CDT Rebecca Garcia MD LAB BLOOD ORDERABLES Final Result Performing Organization Address [facility] Co de Phone Number [facility] [place] [address] * Magnesium (01/07/2025 10:19 PM CDT) [facility] Magnesium 2.1 1.4 - 2.5 mg/dL Blood 01/07/2025 10:1 9 PM CDT 01/07/2025 10:35 PM CDT Rebecca Garcia MD LAB BLOOD ORDERABLES Final Result Performing Organization Address [facility] Co de Phone Number [facility] [place] [address] * (ABNORMAL) Basic metabolic panel (01/07/2025 10:19 PM CDT) [facility] Sodium 137 135 - 145 mmol/L Potassium, pl 3.9 3.3 - 4.9 mmol/L [facility] Chloride 107 97 - 110 mmol/L [facility] CO2 23 22 - 32 mmol/L [facility] Anion gap 7 2 - 15 mmol/L [facility] BUN 17 6 - 25 mg/dL [facility] Creatinine 0.90 0.80 - 1.30 mg/dL [facility] Glucose 174 70 - 199 mg/dL [facility] Comment: Interpretive Data Fasting glucose >/= 126 mg/dl is diagnostic for diabetes. Fasting is defined as no caloric intake for at least 8 hours. Fasting glucose between 100 mg/dl to 125 mg/dl is diagnostic of prediabetes. In a patient with classic symptoms of hyperglycemia or hyperglycemic crisis, a random glucose >/= 200 mg/dl is diagnostic for diabetes. In the absence of unequivocal hyperglycemia, results should be confirmed by repeat testing. The classification and Diagnosis of Diabetes Diabetes Care 2021; 46: S19-S40. Current interpretive data was last revised 2022. Calcium 7.7(L) 8.5 - 10.3 mg/dL [facility] Blood 01/07/2025 10:1 9 PM CDT 01/07/2025 10:35 PM CDT Rebecca Garcia MD LAB BLOOD ORDERABLES Final Result Performing Organization Address City/State/[facility] Co de Phone Number [facility] [place] [address] * CT Abdomen Pelvis W Contrast (01/07/2025 8:44 PM CDT) Anatomical Region Laterality Modality Body N/A Computed Tomogra phy 01/07/2025 9:12 PM CDT Impressions 01/08/2025 8:04 AM CDT 1. Evolving sequela of extraperitoneal bladder rupture with a nonencapsulated mixed gas-fluid collection in the space of Retzius, the fluid component of which is decreased in size compared to the prior examination, in contiguity with the anterior urinary bladder wall defect with fluid tracking subjacent to the rectus abdominis musculature. No new organized or drainable fluid collection. 2. Partially imaged subsegmental bilateral pulmonary emboli, as previously seen on the prior CT from 12/27/2024. Dictated by: Ryne Michelle MD The radiology attending physician has personally reviewed this study, and had reviewed and/or edited this written report and agrees with it. Electronically signed by: Mika García M.D. Narrative 01/08/2025 8:04 AM CDT EXAMINATION: CT of the abdomen and pelvis with intravenous contrast. 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 TECHNIQUE: Transaxial computed tomographic images of the abdomen and pelvis were obtained with intravenous contrast according to the standard protocol after the uneventful administration of 92 mL Opti-Ray 350 intravenous contrast. COMPARISON: CT 01/01/2025. FINDINGS: Partially imaged subsegmental pulmonary emboli in the bilateral lower lobes. Increase in size of a trace left greater than right pleural effusion. Associated bibasilar atelectasis. Imaged heart size is normal without pericardial effusion. Partially imaged changes of median sternotomy and multivessel coronary artery bypass grafting. Calcified granuloma in the liver and spleen. Subtle nodularity of the hepatic surface contour or suggestive of fibrotic changes. No suspicious hepatic lesions. Diffuse hepatic steatosis. No biliary ductal dilatation. Portal, superior mesenteric, splenic veins are patent. Gallbladder is normal. Spleen is normal. There is cystic replacement of the pancreas. Adrenal glands are normal. There is persistent mild left hydroureteronephrosis to the level of the ureterovesicular junction. No right hydronephrosis. Cyst in the lower pole the left kidney. There is an evolving mixed gas and fluid collection anterior to the urinary bladder in the space of Retzius, which is poorly encapsulated and measures approximately 7.2 x 3.8 cm, the fluid component of which is smaller compared to the prior examination. Urinary bladder is decompressed around Sanford catheter with intraluminal gas. There is a segment of mural discontinuity within the anterior aspect of the urinary bladder (series 2, image 212) in keeping with known extraperitoneal bladder rupture. Prostate is present. Colonic diverticulosis without diverticulitis. There is likely reactive peritoneal thickening along the anterior abdominal wall with fluid tracking into subjacent to the rectus abdominis musculature. No focal bowel wall thickening or evidence of obstruction. A staple line is noted in the ascending colon. Stomach and course the duodenal sweep is normal. Severe calcified atherosclerosis of the abdominal aorta, which is nonaneurysmal. Fat-containing bilateral inguinal hernias. Diffuse idiopathic skeletal hyperostosis. No suspicious osseous lesions. Unchanged linear sclerosis across the L1 and L2 vertebral bodies, which is unchanged dating back to 02/16/2024. Similar stranding noted superficial to the greater trochanters. Procedure Note Mika García MD PhD - 01/08/2025 EXAMINATION: CT of the abdomen and pelvis with intravenous contrast. 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 TECHNIQUE: Transaxial computed tomographic images of the abdomen and pelvis were obtained with intravenous contrast according to the standard protocol after the uneventful administration of 92 mL Opti-Ray 350 intravenous contrast. COMPARISON: CT 01/01/2025. FINDINGS: Partially imaged subsegmental pulmonary emboli in the bilateral lower lobes. Increase in size of a trace left greater than right pleural effusion. Associated bibasilar atelectasis. Imaged heart size is normal without pericardial effusion. Partially imaged changes of median sternotomy and multivessel coronary artery bypass grafting. Calcified granuloma in the liver and spleen. Subtle nodularity of the hepatic surface contour or suggestive of fibrotic changes. No suspicious hepatic lesions. Diffuse hepatic steatosis. No biliary ductal dilatation. Portal, superior mesenteric, splenic veins are patent. Gallbladder is normal. Spleen is normal. There is cystic replacement of the pancreas. Adrenal glands are normal. There is persistent mild left hydroureteronephrosis to the level of the ureterovesicular junction. No right hydronephrosis. Cyst in the lower pole the left kidney. There is an evolving mixed gas and fluid collection anterior to the urinary bladder in the space of Retzius, which is poorly encapsulated and measures approximately 7.2 x 3.8 cm, the fluid component of which is smaller compared to the prior examination. Urinary bladder is decompressed around Sanford catheter with intraluminal gas. There is a segment of mural discontinuity within the anterior aspect of the urinary bladder (series 2, image 212) in keeping with known extraperitoneal bladder rupture. Prostate is present. Colonic diverticulosis without diverticulitis. There is likely reactive peritoneal thickening along the anterior abdominal wall with fluid tracking into subjacent to the rectus abdominis musculature. No focal bowel wall thickening or evidence of obstruction. A staple line is noted in the ascending colon. Stomach and course the duodenal sweep is normal. Severe calcified atherosclerosis of the abdominal aorta, which is nonaneurysmal. Fat-containing bilateral inguinal hernias. Diffuse idiopathic skeletal hyperostosis. No suspicious osseous lesions. Unchanged linear sclerosis across the L1 and L2 vertebral bodies, which is unchanged dating back to 02/16/2024. Similar stranding noted superficial to the greater trochanters. IMPRESSION: 1. Evolving sequela of extraperitoneal bladder rupture with a nonencapsulated mixed gas-fluid collection in the space of Retzius, the fluid component of which is decreased in size compared to the prior examination, in contiguity with the anterior urinary bladder wall defect with fluid tracking subjacent to the rectus abdominis musculature. No new organized or drainable fluid collection. 2. Partially imaged subsegmental bilateral pulmonary emboli, as previously seen on the prior CT from 12/27/2024. Dictated by: Ryne Michelle MD The radiology attending physician has personally reviewed this study, and had reviewed and/or edited this written report and agrees with it. Electronically signed by: Mika García M.D. Rebecca Garcia MD IMG CT PROCEDURES Final Re sult * (ABNORMAL) POCT glucose (01/07/2025 8:24 PM CDT) Glucose, POC 206(H) 70 - 199 mg/dL Blood 01/07/2025 8:24 PM CDT 01/07/2025 8:24 PM CDT Rebecca Garcia MD LAB POCT ORDERABLES - BERENICE CE Final Result Performing Organization Address [facility]/ZIP Co de Phone Number [facility] [place] [address] * (ABNORMAL) POCT glucose (01/07/2025 4:15 PM CDT) Glucose, POC 303(H) 70 - 199 mg/dL Blood 01/07/2025 4:15 PM CDT 01/07/2025 4:15 PM CDT Rebecca Garcia MD LAB POCT ORDERABLES - BERENICE CE Final Result Performing Organization Address City/[facility]/ZIP Co de Phone Number [facility] Department [place] [address] * (ABNORMAL) POCT glucose (01/07/2025 11:06 AM CDT) Glucose, POC 247(H) 70 - 199 mg/dL Blood 01/07/2025 11:0 6 AM CDT 01/07/2025 11:06 AM CDT Rebecca Garcia MD LAB POCT ORDERABLES - BERENICE CE Final Result Performing Organization Address City/[facility] Co de Phone Number [facility] Department [place] [address] * POCT glucose (01/07/2025 7:15 AM CDT) Glucose, POC 118 70 - 199 mg/dL Blood 01/07/2025 7:15 AM CDT 01/07/2025 7:15 AM CDT Rebecca Garcia MD LAB POCT ORDERABLES - BERENICE CE Final Result Performing Organization Address City/[facility] de Phone Number [facility] Department [place] [place] [address] * eGFR (01/06/2025 10:44 PM CDT) eGFR 87 >=60 mL/min/1. 73 m2 Comment: Interpretive Data [...] interpretive data was last reviewed 2021. Blood 01/06/2025 10:4 4 PM CDT 01/06/2025 11:01 PM CDT us Rebecca Garcia MD LAB BLOOD ORDERABLES Final Result [facility] [place] [address] * (ABNORMAL) Differential, auto (01/06/2025 10:44 PM CDT) Neutrophil abs 11.40(H) 1.50 - 6.50 K/cumm Imm gran abs 0.30(H) 0.00 - 0.10 K/cumm [facility] Lymphocyte abs 0.87 0.80 - 3.30 K/cumm [facility] Monocyte abs 0.47 0.20 - 0.80 K/cumm [facility] Eosinophil abs 0.04 0.00 - 0.50 K/cumm [facility] Basophil abs 0.01 0.00 - 0.10 K/cumm [facility] Neutrophil pct 87.1 % [facility] Comment: Interpretive Data Percent cell count reference ranges are not reported, since discordance with absolute values may lead to misinterpretation of CBC data. Current Interpretive Data was last revised on 2017. Imm gran pct 2.3 % [facility] Comment: Interpretive Data Percent cell count reference ranges are not reported, since discordance with absolute values may lead to misinterpretation of CBC data. Current Interpretive Data was last revised on 2017. Lymphocyte pct 6.6 % [facility] Comment: Interpretive Data Percent cell count reference ranges are not reported, since discordance with absolute values may lead to misinterpretation of CBC data. Current Interpretive Data was last revised on 2017. Monocyte pct 3.6 % [facility] Comment: Interpretive Data Percent cell count reference ranges are not reported, since discordance with absolute values may lead to misinterpretation of CBC data. Current Interpretive Data was last revised on 2017. Eosinophil pct 0.3 % [facility] Comment: Interpretive Data Percent cell count reference ranges are not reported, since discordance with absolute values may lead to misinterpretation of CBC data. Current Interpretive Data was last revised on 2017. Basophil pct 0.1 % [facility] Comment: Interpretive Data Percent cell count reference ranges are not reported, since discordance with absolute values may lead to misinterpretation of CBC data. Current Interpretive Data was last revised on 2017. Blood 01/06/2025 10:4 4 PM CDT 01/06/2025 11:01 PM CDT us Rebecca Garcia MD LAB BLOOD ORDERABLES Final Result [facility] Department [place] [address] * (ABNORMAL) CBC with auto differential (01/06/2025 10:44 PM CDT) WBC 13.09(H) 3.80 - 9.90 K/cumm Hgb 8.5(L) 13.0 - 17.5 g/dL [facility] Hct 25.8(L) 38.9 - 50.3 % [facility] Plt 169 150 - 400 K/cumm [facility] MPV 9.8 9.1 - 12.3 fL [facility] RBC 3.00(L) 4.30 - 5.80 M/cumm [facility] MCV 86.0 81.3 - 96.4 fL [facility] MCH 28.3 27.1 - 33.3 pg [facility] MCHC 32.9 32.3 - 35.7 g/dL [facility] RDW CV 17.8(H) 11.1 - 14.9 % [facility] RDW SD 55.8(H) 35.7 - 48.1 fL [facility] NRBC abs 0.00 0.00 - 0.01 K/cumm [facility] Blood 01/06/2025 10:4 4 PM CDT 01/06/2025 11:01 PM CDT Rebecca Garcia MD LAB BLOOD ORDERABLES Final Result Performing Organization Address [facility] Co de Phone Number [facility] [place] [address] * (ABNORMAL) aPTT (01/06/2025 10:44 PM CDT) aPTT 83(H) 28 - 38 sec Comment: Interpretive Data Heparin therapeutic range: 66.0 - 100.0 seconds. Range based on correlation with therapeutic heparin activity range of 0.3 - 0.7 Units/mL. Current interpretive data was last revised on 2023. Blood 01/06/2025 10:4 4 PM CDT 01/06/2025 11:04 PM CDT Rebecca Garcia MD LAB BLOOD ORDERABLES Final Result Performing Organization Address [facility] [place] [address] * Type and screen (01/06/2025 10:44 PM CDT) Pathologist [facility] ABO Rh AB Negative Lita, indirect Negative [facility] Blood 01/06/2025 10:4 4 PM CDT 01/06/2025 11:01 PM CDT Narrative [facility] - 01/07/2025 4:23 AM CDT Has the patient had Daratumumab or Isatuximab in the past 6 months?->Unknown Result [facility] Rebecca Garcia MD LAB BLOOD BANK TEST ORDERA BLES Final Result Performing Organization Address [facility] Co de Phone Number [facility] [place] [address] * (ABNORMAL) Phosphorus (01/06/2025 10:44 PM CDT) Pathologist [facility] Phosphorus, pl 1.4(L) 2.3 - 4.5 mg/dL Blood 01/06/2025 10:4 4 PM CDT 01/06/2025 11:01 PM CDT Rebecca Garcia MD LAB BLOOD ORDERABLES Final Result Performing Organization Address City/[facility] Co de Phone Number [facility] Department [place] [address] * Magnesium (01/06/2025 10:44 PM CDT) [facility] Magnesium 2.3 1.4 - 2.5 mg/dL Blood 01/06/2025 10:4 4 PM CDT 01/06/2025 11:01 PM CDT Rebecca Garcia MD LAB BLOOD ORDERABLES Final Result Performing Organization Address [facility] de Phone Number [facility] Department [place] [address] * (ABNORMAL) Basic metabolic panel (01/06/2025 10:44 PM CDT) [facility] Sodium 140 135 - 145 mmol/L Potassium, pl 4.1 3.3 - 4.9 mmol/L [facility] Chloride 113(H) 97 - 110 mmol/L [facility] CO2 24 22 - 32 mmol/L [facility] Anion gap 3 2 - 15 mmol/L [facility] BUN 17 6 - 25 mg/dL [facility] Creatinine 0.84 0.80 - 1.30 mg/dL [facility] Glucose 178 70 - 199 mg/dL [facility] Comment: Interpretive Data Fasting glucose >/= 126 mg/dl is diagnostic for diabetes. Fasting is defined as no caloric intake for at least 8 hours. Fasting glucose between 100 mg/dl to 125 mg/dl is diagnostic of prediabetes. In a patient with classic symptoms of hyperglycemia or hyperglycemic crisis, a random glucose >/= 200 mg/dl is diagnostic for diabetes. In the absence of unequivocal hyperglycemia, results should be confirmed by repeat testing. The classification and Diagnosis of Diabetes Diabetes Care 2021; 46: S19-S40. Current interpretive data was last revised 2022. Calcium 7.8(L) 8.5 - 10.3 mg/dL [facility] Blood 01/06/2025 10:4 4 PM CDT 01/06/2025 11:01 PM CDT Rebecca Garcia MD LAB BLOOD ORDERABLES Final Result Performing Organization Address City/[facility] Co de Phone Number [facility] [place] [place] [address] * (ABNORMAL) POCT glucose (01/06/2025 8:33 PM CDT) Glucose, POC 240(H) 70 - 199 mg/dL Blood 01/06/2025 8:33 PM CDT 01/06/2025 8:33 PM CDT Rebecca Garcia MD LAB POCT ORDERABLES - BERENICE CE Final Result Performing Organization Address [facility] Co de Phone Number [facility] Department [place] [place] [address] * (ABNORMAL) POCT glucose (01/06/2025 4:53 PM CDT) Glucose, POC 202(H) 70 - 199 mg/dL Blood 01/06/2025 4:53 PM CDT 01/06/2025 4:53 PM CDT Rebecca Garcia MD LAB POCT ORDERABLES - BERENICE CE Final Result Performing Organization Address City/[facility] Co de Phone Number [facility] Department [place] [place] [address] * (ABNORMAL) POCT glucose (01/06/2025 11:38 AM CDT) Glucose, POC 212(H) 70 - 199 mg/dL Comment:Glu2: RN/MD Notified Glucose comment 1 Glu2: RN/MD Notified [facility] Blood 01/06/2025 11:3 8 AM CDT 01/06/2025 11:38 AM CDT Rebecca Garcia MD LAB POCT ORDERABLES - BERENICE CE Final Result Performing Organization Address [facility] Co de Phone Number [facility] [place] [place] [address] * POCT glucose (01/06/2025 7:41 AM CDT) Glucose, POC 121 70 - 199 mg/dL Blood 01/06/2025 7:41 AM CDT 01/06/2025 7:41 AM CDT Rebecca Garcia MD LAB POCT ORDERABLES - BERENICE CE Final Result Performing Organization Address [facility] de Phone Number [facility] [place] [address] * (ABNORMAL) aPTT (01/06/2025 6:12 AM CDT) aPTT 93(H) 28 - 38 sec Comment: Interpretive Data Heparin therapeutic range: 66.0 - 100.0 seconds. Range based on correlation with therapeutic heparin activity range of 0.3 - 0.7 Units/mL. Current interpretive data was last revised on 2023. Blood 01/06/2025 6:12 AM CDT 01/06/2025 6:35 AM CDT Rebecca Garcia MD LAB BLOOD ORDERABLES Final Result Performing Organization Address City/[facility] Co de Phone Number [facility] [place] [place] [address] * eGFR (01/06/2025 12:21 AM CDT) Pathologist [facility] eGFR 81 >=60 mL/min/1. 73 m2 Comment: Interpretive Data [...] interpretive data was last reviewed 2021. Blood 01/06/2025 12:2 1 AM CDT 01/06/2025 1:47 AM CDT us Rebecca Garcia MD LAB BLOOD ORDERABLES Final Result [facility] Department [place] [address] * (ABNORMAL) Differential, auto (01/06/2025 12:21 AM CDT) Pathologist [facility] Neutrophil abs 11.15(H) 1.50 - 6.50 K/cumm Imm gran abs 0.21(H) 0.00 - 0.10 K/cumm [facility] Lymphocyte abs 0.75(L) 0.80 - 3.30 K/cumm [facility] Monocyte abs 0.61 0.20 - 0.80 K/cumm [facility] Eosinophil abs 0.10 0.00 - 0.50 K/cumm [facility] Basophil abs 0.02 0.00 - 0.10 K/cumm [facility] Neutrophil pct 86.8 % [facility] Comment: Interpretive Data Percent cell count reference ranges are not reported, since discordance with absolute values may lead to misinterpretation of CBC data. Current Interpretive Data was last revised on 2017. Imm gran pct 1.6 % [facility] Comment: Interpretive Data Percent cell count reference ranges are not reported, since discordance with absolute values may lead to misinterpretation of CBC data. Current Interpretive Data was last revised on 2017. Lymphocyte pct 5.8 % [facility] Comment: Interpretive Data Percent cell count reference ranges are not reported, since discordance with absolute values may lead to misinterpretation of CBC data. Current Interpretive Data was last revised on 2017. Monocyte pct 4.8 % [facility] Comment: Interpretive Data Percent cell count reference ranges are not reported, since discordance with absolute values may lead to misinterpretation of CBC data. Current Interpretive Data was last revised on 2017. Eosinophil pct 0.8 % [facility] Comment: Interpretive Data Percent cell count reference ranges are not reported, since discordance with absolute values may lead to misinterpretation of CBC data. Current Interpretive Data was last revised on 2017. Basophil pct 0.2 % [facility] Comment: Interpretive Data Percent cell count reference ranges are not reported, since discordance with absolute values may lead to misinterpretation of CBC data. Current Interpretive Data was last revised on 2017. Blood 01/06/2025 12:2 1 AM CDT 01/06/2025 1:47 AM CDT us Rebecca Garcia MD LAB BLOOD ORDERABLES Final Result [facility] Department [place] [address] * (ABNORMAL) CBC with auto differential (01/06/2025 12:21 AM CDT) WBC 12.84(H) 3.80 - 9.90 K/cumm Hgb 8.5(L) 13.0 - 17.5 g/dL [facility] Hct 26.6(L) 38.9 - 50.3 % [facility] Plt 191 150 - 400 K/cumm [facility] MPV 10.1 9.1 - 12.3 fL [facility] RBC 3.05(L) 4.30 - 5.80 M/cumm [facility] MCV 87.2 81.3 - 96.4 fL [facility] MCH 27.9 27.1 - 33.3 pg [facility] MCHC 32.0(L) 32.3 - 35.7 g/dL [facility] RDW CV 17.9(H) 11.1 - 14.9 % [facility] RDW SD 56.6(H) 35.7 - 48.1 fL [facility] NRBC abs 0.00 0.00 - 0.01 K/cumm [facility] Blood 01/06/2025 12:2 1 AM CDT 01/06/2025 1:47 AM CDT Rebecca Garcia MD LAB BLOOD ORDERABLES Final Result Performing Organization Address [facility] Co de Phone Number [facility] Department [place] [place] [address] * (ABNORMAL) aPTT (01/06/2025 12:21 AM CDT) aPTT 81(H) 28 - 38 sec Comment: Interpretive Data Heparin therapeutic range: 66.0 - 100.0 seconds. Range based on correlation with therapeutic heparin activity range of 0.3 - 0.7 Units/mL. Current interpretive data was last revised on 2023. Blood 01/06/2025 12:2 1 AM CDT 01/06/2025 1:44 AM CDT Arsenio Molina MD LAB BLOOD ORDERABLES Fi nal Result Performing Organization Address City/[facility]/ZIP Co de Phone Number [facility] Department [place] [address] * Magnesium (01/06/2025 12:21 AM CDT) Magnesium 1.9 1.4 - 2.5 mg/dL Blood 01/06/2025 12:2 1 AM CDT 01/06/2025 1:47 AM CDT Rebecca Garcia MD LAB BLOOD ORDERABLES Final Result [facility] Department [place] [address] * (ABNORMAL) Basic metabolic panel (01/06/2025 12:21 AM CDT) Pathologist [facility] Sodium 143 135 - 145 mmol/L Potassium, pl 3.9 3.3 - 4.9 mmol/L [facility] Chloride 112(H) 97 - 110 mmol/L [facility] CO2 23 22 - 32 mmol/L [facility] Anion gap 8 2 - 15 mmol/L [facility] BUN 16 6 - 25 mg/dL [facility] Creatinine 0.94 0.80 - 1.30 mg/dL [facility] Glucose 142 70 - 199 mg/dL [facility] Comment: Interpretive Data Fasting glucose >/= 126 mg/dl is diagnostic for diabetes. Fasting is defined as no caloric intake for at least 8 hours. Fasting glucose between 100 mg/dl to 125 mg/dl is diagnostic of prediabetes. In a patient with classic symptoms of hyperglycemia or hyperglycemic crisis, a random glucose >/= 200 mg/dl is diagnostic for diabetes. In the absence of unequivocal hyperglycemia, results should be confirmed by repeat testing. The classification and Diagnosis of Diabetes Diabetes Care 202; 46: S19-S40. Current interpretive data was last revised 2022. Calcium 8.2(L) 8.5 - 10.3 mg/dL [facility] Blood 01/06/2025 12:2 1 AM CDT 01/06/2025 1:47 AM CDT Rebecca Garcia MD LAB BLOOD ORDERABLES Final Result [facility] [place] [address] * (ABNORMAL) POCT glucose (01/05/2025 8:29 PM CDT) Glucose, POC 218(H) 70 - 199 mg/dL Blood 01/05/2025 8:29 PM CDT 01/05/2025 8:29 PM CDT Rebecca Garcia MD LAB POCT ORDERABLES - BERENICE CE Final Result Performing Organization Address [facility] Co de Phone Number [facility] [place] [address] * (ABNORMAL) POCT glucose (01/05/2025 4:47 PM CDT) Glucose, POC 273(H) 70 - 199 mg/dL Blood 01/05/2025 4:47 PM CDT 01/05/2025 4:47 PM CDT Rebecca Garcia MD LAB POCT ORDERABLES - BERENICE CE Final Result Performing Organization Address [facility] de Phone Number [facility] [place] [address] * (ABNORMAL) aPTT (01/05/2025 4:10 PM CDT) aPTT 138(H) 28 - 38 sec Comment: Repeated and verified - [id number] - 01/05/25, 5:13 PM Interpretive Data Heparin therapeutic range: 66.0 - 100.0 seconds. Range based on correlation with therapeutic heparin activity range of 0.3 - 0.7 Units/mL. Current interpretive data was last revised on 2023. Blood 01/05/2025 4:10 PM CDT 01/05/2025 4:52 PM CDT Rebecca Garcia MD LAB BLOOD ORDERABLES Final Result [facility] PEREZ Chrissie [facility] [place] [address] * (ABNORMAL) POCT glucose (01/05/2025 12:25 PM CDT) Glucose, POC 290(H) 70 - 199 mg/dL Blood 01/05/2025 12:2 5 PM CDT 01/05/2025 12:25 PM CDT Rebecca Garcia MD LAB POCT ORDERABLES - BERENICE CE Final Result Performing Organization Address City/[facility] Co de Phone Number [facility] Chrissie [facility] [place] [address] * eGFR (01/05/2025 8:00 AM CDT) eGFR 70 >=60 mL/min/1. 73 m2 Comment: Interpretive Data [...] of Race in Diagnosing Kidney Disease, JASN 202). The CKD-EPI equation should not be used for patients with unstable renal function and has not been validated in children and those over 70. Current interpretive data was last reviewed 2021. Blood 01/05/2025 8:00 AM CDT 01/05/2025 8:12 AM CDT us Hermes Bassam Molina MD LAB BLOOD ORDERABLES Clara l Result Performing Organization Address [facility] de Phone Number [facility] [place] [address] * (ABNORMAL) aPTT (01/05/2025 8:00 AM CDT) Pathologist [facility] aPTT 106(H) 28 - 38 sec Comment: Interpretive Data Heparin therapeutic range: 66.0 - 100.0 seconds. Range based on correlation with therapeutic heparin activity range of 0.3 - 0.7 Units/mL. Current interpretive data was last revised on 2023. Blood 01/05/2025 8:00 AM CDT 01/05/2025 8:10 AM CDT RUSTadam Molina MD LAB BLOOD ORDERABLES Clara l Result Performing Organization Address [facility] de Phone Number [facility] Department [place] [address] * (ABNORMAL) Basic metabolic panel (01/05/2025 8:00 AM CDT) [facility] Sodium 144 135 - 145 mmol/L Potassium, pl 3.2(L) 3.3 - 4.9 mmol/L [facility] Chloride 113(H) 97 - 110 mmol/L [facility] CO2 21(L) 22 - 32 mmol/L [facility] Anion gap 10 2 - 15 mmol/L [facility] BUN 19 6 - 25 mg/dL [facility] Creatinine 1.06 0.80 - 1.30 mg/dL [facility] Glucose 134 70 - 199 mg/dL [facility] Comment: Interpretive Data Fasting glucose >/= 126 mg/dl is diagnostic for diabetes. Fasting is defined as no caloric intake for at least 8 hours. Fasting glucose between 100 mg/dl to 125 mg/dl is diagnostic of prediabetes. In a patient with classic symptoms of hyperglycemia or hyperglycemic crisis, a random glucose >/= 200 mg/dl is diagnostic for diabetes. In the absence of unequivocal hyperglycemia, results should be confirmed by repeat testing. The classification and Diagnosis of Diabetes Diabetes Care 2021; 46: S19-S40. Current interpretive data was last revised 2022. Calcium 8.1(L) 8.5 - 10.3 mg/dL [facility] Blood 01/05/2025 8:00 AM CDT 01/05/2025 8:12 AM CDT Hermes Molina MD LAB BLOOD ORDERABLES Clara l Result [facility] [place] [address] * POCT glucose (01/05/2025 4:55 AM CDT) Glucose, POC 118 70 - 199 mg/dL Blood 01/05/2025 4:55 AM CDT 01/05/2025 4:55 AM CDT Rebecca Garcia MD LAB POCT ORDERABLES - BERENICE CE Final Result Performing Organization Address City/[facility] Co de Phone Number [facility] [place] [address] * POCT glucose (01/04/2025 11:51 PM CDT) Glucose, POC 137 70 - 199 mg/dL Blood 01/04/2025 11:5 1 PM CDT 01/04/2025 11:51 PM CDT Rebecca Garcia MD LAB POCT ORDERABLES - BERENICE CE Final Result Performing Organization Address City/[facility]/ZIP Co de Phone Number [facility] [place] [address] * Critical Result Callback Hematology (01/04/2025 10:22 PM CDT) Date Notified [id number] Time Notified [id number] [facility] TestName aPTT [facility] Called/Read Back Rhiannon Williamson [facility] Credentials RN [facility] Called By JED [facility] Blood 01/04/2025 10:2 2 PM CDT 01/04/2025 10:54 PM CDT Rebecca Garcia MD LAB BLOOD ORDERABLES Final Result [facility] [place] [address] * (ABNORMAL) aPTT (01/04/2025 10:22 PM CDT) aPTT >150(C) 28 - 38 sec Comment: reviewed Interpretive Data Heparin therapeutic range: 66.0 - 100.0 seconds. Range based on correlation with therapeutic heparin activity range of 0.3 - 0.7 Units/mL. Current interpretive data was last revised on 2023. Blood 01/04/2025 10:2 2 PM CDT 01/04/2025 10:54 PM CDT Rebecca Garcia MD LAB BLOOD ORDERABLES Final Result Performing Organization Address City/[facility] Co de Phone Number [facility] [place] [address] * eGFR (01/04/2025 10:21 PM CDT) eGFR 66 >=60 mL/min/1. 73 m2 Comment: Interpretive Data [...] interpretive data was last reviewed 2021. Blood 01/04/2025 10:2 1 PM CDT 01/04/2025 10:43 PM CDT us Rebecca Garcia MD LAB BLOOD ORDERABLES Final Result [facility] Department [place] [address] * (ABNORMAL) Differential, auto (01/04/2025 10:21 PM CDT) Neutrophil abs 13.95(H) 1.50 - 6.50 K/cumm Imm gran abs 0.15(H) 0.00 - 0.10 K/cumm [facility] Lymphocyte abs 0.50(L) 0.80 - 3.30 K/cumm [facility] Monocyte abs 0.46 0.20 - 0.80 K/cumm [facility] Eosinophil abs 0.04 0.00 - 0.50 K/cumm [facility] Basophil abs 0.02 0.00 - 0.10 K/cumm [facility] Neutrophil pct 92.3 % [facility] Comment: Interpretive Data Percent cell count reference ranges are not reported, since discordance with absolute values may lead to misinterpretation of CBC data. Current Interpretive Data was last revised on 2017. Imm gran pct 1.0 % [facility] Comment: Interpretive Data Percent cell count reference ranges are not reported, since discordance with absolute values may lead to misinterpretation of CBC data. Current Interpretive Data was last revised on 2017. Lymphocyte pct 3.3 % [facility] Comment: Interpretive Data Percent cell count reference ranges are not reported, since discordance with absolute values may lead to misinterpretation of CBC data. Current Interpretive Data was last revised on 2017. Monocyte pct 3.0 % [facility] Comment: Interpretive Data Percent cell count reference ranges are not reported, since discordance with absolute values may lead to misinterpretation of CBC data. Current Interpretive Data was last revised on 2017. Eosinophil pct 0.3 % [facility] Comment: Interpretive Data Percent cell count reference ranges are not reported, since discordance with absolute values may lead to misinterpretation of CBC data. Current Interpretive Data was last revised on 2017. Basophil pct 0.1 % [facility] Comment: Interpretive Data Percent cell count reference ranges are not reported, since discordance with absolute values may lead to misinterpretation of CBC data. Current Interpretive Data was last revised on 2017. Blood 01/04/2025 10:2 1 PM CDT 01/04/2025 10:43 PM CDT Rebecca Garcia MD LAB BLOOD ORDERABLES Final Result Performing Organization Address City/[facility]/ZIP Co de Phone Number [facility] Department [place] [address] * (ABNORMAL) Iron profile w/ IBC (01/04/2025 10:21 PM CDT) Pathologist [facility] Iron 48(L) 50 - 150 mcg/dL TIBC 159(L) 250 - 400 mcg/dL [facility] Transferrin saturation 30 20 - 50 % [facility] Blood 01/04/2025 10:2 1 PM CDT 01/04/2025 10:43 PM CDT Rebecca Garcia MD LAB BLOOD ORDERABLES Final Result [facility] Department [place] [address] * (ABNORMAL) CBC with auto differential (01/04/2025 10:21 PM CDT) WBC 15.12(H) 3.80 - 9.90 K/cumm Hgb 10.4(L) 13.0 - 17.5 g/dL [facility] Hct 32.2(L) 38.9 - 50.3 % [facility] Plt 211 150 - 400 K/cumm [facility] MPV 9.6 9.1 - 12.3 fL [facility] RBC 3.71(L) 4.30 - 5.80 M/cumm [facility] MCV 86.8 81.3 - 96.4 fL [facility] MCH 28.0 27.1 - 33.3 pg [facility] MCHC 32.3 32.3 - 35.7 g/dL [facility] RDW CV 18.1(H) 11.1 - 14.9 % [facility] RDW SD 56.3(H) 35.7 - 48.1 fL [facility] NRBC abs 0.00 0.00 - 0.01 K/cumm [facility] Blood 01/04/2025 10:2 1 PM CDT 01/04/2025 10:43 PM CDT Rebecca Garcia MD LAB BLOOD ORDERABLES Final Result [facility] Department [place] [place] [address] * Magnesium (01/04/2025 10:21 PM CDT) Magnesium 2.1 1.4 - 2.5 mg/dL Blood 01/04/2025 10:2 1 PM CDT 01/04/2025 10:43 PM CDT Rebecca Garcia MD LAB BLOOD ORDERABLES Final Result [facility] [place] [address] * (ABNORMAL) Ferritin (01/04/2025 10:21 PM CDT) Ferritin 1,187(H) 30 - 400 ng/mL Blood 01/04/2025 10:2 1 PM CDT 01/04/2025 10:43 PM CDT Rebecca Garcia MD LAB BLOOD ORDERABLES Final Result [facility] [place] [address] * (ABNORMAL) Basic metabolic panel (01/04/2025 10:21 PM CDT) [facility] Sodium 148(H) 135 - 145 mmol/L Potassium, pl 3.3 3.3 - 4.9 mmol/L [facility] Chloride 114(H) 97 - 110 mmol/L [facility] CO2 21(L) 22 - 32 mmol/L [facility] Anion gap 13 2 - 15 mmol/L [facility] BUN 20 6 - 25 mg/dL [facility] Creatinine 1.11 0.80 - 1.30 mg/dL [facility] Glucose 156 70 - 199 mg/dL [facility] Comment: Interpretive Data Fasting glucose >/= 126 mg/dl is diagnostic for diabetes. Fasting is defined as no caloric intake for at least 8 hours. Fasting glucose between 100 mg/dl to 125 mg/dl is diagnostic of prediabetes. In a patient with classic symptoms of hyperglycemia or hyperglycemic crisis, a random glucose >/= 200 mg/dl is diagnostic for diabetes. In the absence of unequivocal hyperglycemia, results should be confirmed by repeat testing. The classification and Diagnosis of Diabetes Diabetes Care 2021; 46: S19-S40. Current interpretive data was last revised 2022. Calcium 8.4(L) 8.5 - 10.3 mg/dL [facility] Blood 01/04/2025 10:2 1 PM CDT 01/04/2025 10:43 PM CDT Rebecca Garcia MD LAB BLOOD ORDERABLES Final Result [facility] Department [place] [address] * POCT glucose (01/04/2025 8:39 PM CDT) Glucose, POC 182 70 - 199 mg/dL Blood 01/04/2025 8:39 PM CDT 01/04/2025 8:39 PM CDT Rebecca Garcia MD LAB POCT ORDERABLES - BERENICE CE Final Result Performing Organization Address [facility] Co de Phone Number [facility] Department [place] [address] * (ABNORMAL) POCT glucose (01/04/2025 4:23 PM CDT) Glucose, POC 215(H) 70 - 199 mg/dL Blood 01/04/2025 4:23 PM CDT 01/04/2025 4:23 PM CDT Rebecca Garcia MD LAB POCT ORDERABLES - BERENICE CE Final Result Performing Organization Address [facility] de Phone Number [facility] [place] [place] [address] * CT Cystogram WO Contrast (01/04/2025 1:21 PM CDT) Anatomical Region Laterality Modality Pelvis N/A Computed Tomogra phy 01/04/2025 1:58 PM CDT Impressions 01/04/2025 5:08 PM CDT 1. No overt extraperitoneal contrast extravasation to suggest bladder leak. However there is a small amount of fluid and gas anterior to the bladder with adjacent mesenteric stranding. Attention on follow-up exam. 2. Persistent left hydroureter. 3. Sanford catheter balloon remains in the prostatic urethra. Recommend advancement. Dictated by: Sam Simons MD ADDENDUM - This addendum is being placed on the report for a time dependent finding on a patient who is admitted to the hospital (2B). An addendum is made to clarify that that lack of extraluminal contrast is likely due to urinary bladder underdistention and given persistent fluid and gas collection anterior to the bladder, a leak is likely still present. Additionally high density contents within the urinary bladder on noncontrast exam likely represent layering blood products over residual contrast as initially indicated. Stranding within the peritoneum is still present and as recommended on the prior CT should be followed with a one month follow-up examination. These findings were communicated to Hermes Molina M.D. by Sam Simons at 5:05 PM. The radiology attending physician has personally reviewed this study, and had reviewed and/or edited this written report and agrees with it. Electronically signed by: Mo Lal M.D. Narrative 01/04/2025 5:08 PM CDT EXAMINATION: CT CYSTOGRAM WO CONTRAST HISTORY: Patient with transurethral resection of the prostate one month ago with recent extraperitoneal bladder rupture. Follow-up exam. TECHNIQUE: The urinary bladder was allowed to fill by gravity with dilute Opti-Ray 350 contrast in saline through the previously placed bladder catheter to full distension. Transaxial computed tomographic images of the pelvis were obtained without intravenous contrast according to the cystography protocol. The bladder was then drained of contrast by gravity. COMPARISON: 01/01/2025. FINDINGS: Initial noncontrast images prior to instillation of contrast are notable for Sanford catheter position in the urethra and high-density products within the bladder either representing residual contrast or blood products. Initial attempt was made to opacify the urinary bladder with Sanford in this position with approximately 250 mL contrast still. The Sanford was then advanced after speaking with the clinical team with instillation of an extra 100 mL of contrast to better assess area of interest near the bladder dome. Sanford balloon still noted in the prostatic urethra. Previously described defect in the anterior abdominal wall is not well characterized on this exam. There is no overt site of extraluminal contrast to suggest persistent leak. However there is a persistent small amount of fluid and gas collection anterior to the bladder with adjacent mesenteric stranding, similar to prior. Gas is seen within the urinary bladder likely related to instrumentation. Large left renal cyst. Persistent left hydroureter. Small bilateral inguinal hernias. No new abdominal or pelvic lymphadenopathy. Partial colectomy. Atherosclerotic calcifications of the abdominal aorta and its branches. Procedure Note Mo Lal MD - 01/04/2025 EXAMINATION: CT CYSTOGRAM WO CONTRAST HISTORY: Patient with transurethral resection of the prostate one month ago with recent extraperitoneal bladder rupture. Follow-up exam. TECHNIQUE: The urinary bladder was allowed to fill by gravity with dilute Opti-Ray 350 contrast in saline through the previously placed bladder catheter to full distension. Transaxial computed tomographic images of the pelvis were obtained without intravenous contrast according to the cystography protocol. The bladder was then drained of contrast by gravity. COMPARISON: 01/01/2025. FINDINGS: Initial noncontrast images prior to instillation of contrast are notable for Sanford catheter position in the urethra and high-density products within the bladder either representing residual contrast or blood products. Initial attempt was made to opacify the urinary bladder with Sanford in this position with approximately 250 mL contrast still. The Sanford was then advanced after speaking with the clinical team with instillation of an extra 100 mL of contrast to better assess area of interest near the bladder dome. Sanford balloon still noted in the prostatic urethra. Previously described defect in the anterior abdominal wall is not well characterized on this exam. There is no overt site of extraluminal contrast to suggest persistent leak. However there is a persistent small amount of fluid and gas collection anterior to the bladder with adjacent mesenteric stranding, similar to prior. Gas is seen within the urinary bladder likely related to instrumentation. Large left renal cyst. Persistent left hydroureter. Small bilateral inguinal hernias. No new abdominal or pelvic lymphadenopathy. Partial colectomy. Atherosclerotic calcifications of the abdominal aorta and its branches. IMPRESSION: 1. No overt extraperitoneal contrast extravasation to suggest bladder leak. However there is a small amount of fluid and gas anterior to the bladder with adjacent mesenteric stranding. Attention on follow-up exam. 2. Persistent left hydroureter. 3. Sanford catheter balloon remains in the prostatic urethra. Recommend advancement. Dictated by: Sam Simons MD ADDENDUM - This addendum is being placed on the report for a time dependent finding on a patient who is admitted to the hospital (2B). An addendum is made to clarify that that lack of extraluminal contrast is likely due to urinary bladder underdistention and given persistent fluid and gas collection anterior to the bladder, a leak is likely still present. Additionally high density contents within the urinary bladder on noncontrast exam likely represent layering blood products over residual contrast as initially indicated. Stranding within the peritoneum is still present and as recommended on the prior CT should be followed with a one month follow-up examination. These findings were communicated to Hermes Molina M.D. by Sam Simons at 5:05 PM. The radiology attending physician has personally reviewed this study, and had reviewed and/or edited this written report and agrees with it. Electronically signed by: Mo Lal M.D. Rebecca Garcia MD IMG CT PROCEDURES Final Re sult * (ABNORMAL) POCT glucose (01/04/2025 11:51 AM CDT) [facility] Glucose, POC 218(H) 70 - 199 mg/dL Blood 01/04/2025 11:5 1 AM CDT 01/04/2025 11:51 AM CDT Rebecca Garcia MD LAB POCT ORDERABLES - BERENICE CE Final Result Performing Organization Address [facility] Co de Phone Number [facility] Department [place] [place] [address] * POCT glucose (01/04/2025 7:46 AM CDT) [facility] Glucose, POC 187 70 - 199 mg/dL Blood 01/04/2025 7:46 AM CDT 01/04/2025 7:46 AM CDT Rebecca Garcia MD LAB POCT ORDERABLES - BERENICE CE Final Result [facility] [place] [address] * (ABNORMAL) eGFR (01/04/2025 4:04 AM CDT) [facility] eGFR 56(L) >=60 mL/min/1. 73 m2 Comment: Interpretive Data [...] interpretive data was last reviewed 2021. Blood 01/04/2025 4:04 AM CDT 01/04/2025 4:18 AM CDT us Rebecca Garcia MD LAB BLOOD ORDERABLES Final Result [facility] [place] [address] * (ABNORMAL) Differential, auto (01/04/2025 4:04 AM CDT) Pathologist [facility] Neutrophil abs 12.79(H) 1.50 - 6.50 K/cumm Imm gran abs 0.15(H) 0.00 - 0.10 K/cumm [facility] Lymphocyte abs 0.53(L) 0.80 - 3.30 K/cumm [facility] Monocyte abs 0.53 0.20 - 0.80 K/cumm [facility] Eosinophil abs 0.03 0.00 - 0.50 K/cumm [facility] Basophil abs 0.02 0.00 - 0.10 K/cumm [facility] Neutrophil pct 91.0 % [facility] Comment: Interpretive Data Percent cell count reference ranges are not reported, since discordance with absolute values may lead to misinterpretation of CBC data. Current Interpretive Data was last revised on 2017. Imm gran pct 1.1 % [facility] Comment: Interpretive Data Percent cell count reference ranges are not reported, since discordance with absolute values may lead to misinterpretation of CBC data. Current Interpretive Data was last revised on 2017. Lymphocyte pct 3.8 % [facility] Comment: Interpretive Data Percent cell count reference ranges are not reported, since discordance with absolute values may lead to misinterpretation of CBC data. Current Interpretive Data was last revised on 2017. Monocyte pct 3.8 % [facility] Comment: Interpretive Data Percent cell count reference ranges are not reported, since discordance with absolute values may lead to misinterpretation of CBC data. Current Interpretive Data was last revised on 2017. Eosinophil pct 0.2 % [facility] Comment: Interpretive Data Percent cell count reference ranges are not reported, since discordance with absolute values may lead to misinterpretation of CBC data. Current Interpretive Data was last revised on 2017. Basophil pct 0.1 % [facility] Comment: Interpretive Data Percent cell count reference ranges are not reported, since discordance with absolute values may lead to misinterpretation of CBC data. Current Interpretive Data was last revised on 2017. Blood 01/04/2025 4:04 AM CDT 01/04/2025 4:18 AM CDT us Rebecca Garcia MD LAB BLOOD ORDERABLES Final Result [facility] Department [place] [address] * (ABNORMAL) CBC with auto differential (01/04/2025 4:04 AM CDT) WBC 14.05(H) 3.80 - 9.90 K/cumm Hgb 9.4(L) 13.0 - 17.5 g/dL [facility] Hct 29.2(L) 38.9 - 50.3 % [facility] Plt 186 150 - 400 K/cumm [facility] MPV 10.1 9.1 - 12.3 fL [facility] RBC 3.35(L) 4.30 - 5.80 M/cumm [facility] MCV 87.2 81.3 - 96.4 fL [facility] MCH 28.1 27.1 - 33.3 pg [facility] MCHC 32.2(L) 32.3 - 35.7 g/dL [facility] RDW CV 17.4(H) 11.1 - 14.9 % [facility] RDW SD 54.4(H) 35.7 - 48.1 fL [facility] NRBC abs 0.00 0.00 - 0.01 K/cumm [facility] Blood 01/04/2025 4:04 AM CDT 01/04/2025 4:18 AM CDT Rebecca Garcia MD LAB BLOOD ORDERABLES Final Result Performing Organization Address [facility] Co de Phone Number [facility] [place] [address] * (ABNORMAL) aPTT (01/04/2025 4:04 AM CDT) aPTT 52(H) 28 - 38 sec Comment: Interpretive Data Heparin therapeutic range: 66.0 - 100.0 seconds. Range based on correlation with therapeutic heparin activity range of 0.3 - 0.7 Units/mL. Current interpretive data was last revised on 2023. Blood 01/04/2025 4:04 AM CDT 01/04/2025 4:29 AM CDT Rebecca Garcia MD LAB BLOOD ORDERABLES Final Result Performing Organization Address [facility] Co de Phone Number [facility] [place] [address] * (ABNORMAL) Protime-INR (01/04/2025 4:04 AM CDT) PT 13.8(H) 9.7 - 13.0 sec INR 1.27(H) 0.90 - 1.20 [facility] Comment: Interpretive data Oral anticoagulant therapeutic ranges: Venous thromboembolism prophylaxis or treatment: 2.0-3.0 CARDIOLOGY Standard range: 2.0-3.0 High-intensity range: 2.5-3.5 Refer to indication-specific guidelines for appropriate target ranges for prosthetic heart valve replacement. Current interpretive data was last revised on 2019. Blood 01/04/2025 4:04 AM CDT 01/04/2025 4:29 AM CDT Rebecca Garcia MD LAB BLOOD ORDERABLES Final Result Performing Organization Address City/[facility] Co de Phone Number [facility] [place] [address] * Vancomycin level trough Draw trough 30 minutes prior to 3rd dose. (01/04/2025 4:04 AM CDT) [facility] Vancomycin trough 15.8 10.0 - 20.0 mcg/mL Blood 01/04/2025 4:04 AM CDT 01/04/2025 4:18 AM CDT Narrative [facility] - 01/04/2025 4:47 AM CDT Draw trough 30 minutes prior to 3rd dose. Hermes Molina MD LAB BLOOD ORDERABLES Clara l Result Performing Organization Address City/[facility]/ZIP Co de Phone Number [facility] Department [place] [address] * (ABNORMAL) Basic metabolic panel (01/04/2025 4:04 AM CDT) Pathologist [facility] Sodium 146(H) 135 - 145 mmol/L Potassium, pl 3.5 3.3 - 4.9 mmol/L [facility] Chloride 115(H) 97 - 110 mmol/L [facility] CO2 22 22 - 32 mmol/L [facility] Anion gap 9 2 - 15 mmol/L [facility] BUN 22 6 - 25 mg/dL [facility] Creatinine 1.27 0.80 - 1.30 mg/dL [facility] Glucose 179 70 - 199 mg/dL [facility] Comment: Interpretive Data Fasting glucose >/= 126 mg/dl is diagnostic for diabetes. Fasting is defined as no caloric intake for at least 8 hours. Fasting glucose between 100 mg/dl to 125 mg/dl is diagnostic of prediabetes. In a patient with classic symptoms of hyperglycemia or hyperglycemic crisis, a random glucose >/= 200 mg/dl is diagnostic for diabetes. In the absence of unequivocal hyperglycemia, results should be confirmed by repeat testing. The classification and Diagnosis of Diabetes Diabetes Care 2021; 46: S19-S40. Current interpretive data was last revised 2022. Calcium 8.0(L) 8.5 - 10.3 mg/dL [facility] Blood 01/04/2025 4:04 AM CDT 01/04/2025 4:18 AM CDT Rebecca Garcia MD LAB BLOOD ORDERABLES Final Result Performing Organization Address City/[facility]/ZIP Co de Phone Number [facility] Department [place] [place] [address] * POCT glucose (01/04/2025 3:59 AM CDT) Glucose, POC 187 70 - 199 mg/dL Blood 01/04/2025 3:59 AM CDT 01/04/2025 3:59 AM CDT Rebecca Garcia MD LAB POCT ORDERABLES - BERENICE CE Final Result [facility] [place] [address] * POCT glucose (01/04/2025 12:24 AM CDT) Glucose, POC 189 70 - 199 mg/dL Blood 01/04/2025 12:2 4 AM CDT 01/04/2025 12:24 AM CDT Rebecca Garcia MD LAB POCT ORDERABLES - BERENICE CE Final Result Performing Organization Address [facility] Co de Phone Number [facility] [place] [address] * (ABNORMAL) POCT glucose (01/03/2025 8:07 PM CDT) Glucose, POC 210(H) 70 - 199 mg/dL Blood 01/03/2025 8:07 PM CDT 01/03/2025 8:07 PM CDT Rebecca Garcia MD LAB POCT ORDERABLES - BERENICE CE Final Result Performing Organization Address [facility] de Phone Number [facility] [place] [address] * (ABNORMAL) aPTT (01/03/2025 7:03 PM CDT) aPTT 19(L) 28 - 38 sec Comment: No clot detected -GAT Interpretive Data Heparin therapeutic range: 66.0 - 100.0 seconds. Range based on correlation with therapeutic heparin activity range of 0.3 - 0.7 Units/mL. Current interpretive data was last revised on 2023. Blood 01/03/2025 7:03 PM CDT 01/03/2025 7:23 PM CDT Fransisca Delgado MD LAB BLOOD ORDERABLES Edited Res ult - Final Performing Organization Address [facility] Co de Phone Number [facility] [place] [address] * (ABNORMAL) Protime-INR (01/03/2025 7:03 PM CDT) PT 14.7(H) 9.7 - 13.0 sec INR 1.35(H) 0.90 - 1.[facility] Comment: Interpretive data Oral anticoagulant therapeutic ranges: Venous thromboembolism prophylaxis or treatment: 2.0-3.0 CARDIOLOGY Standard range: 2.0-3.0 High-intensity range: 2.5-3.5 Refer to indication-specific guidelines for appropriate target ranges for prosthetic heart valve replacement. Current interpretive data was last revised on 2019. Blood 01/03/2025 7:03 PM CDT 01/03/2025 7:23 PM CDT Fransisca Delgado MD LAB BLOOD ORDERABLES Final Resu lt Performing Organization Address [facility] Co de Phone Number [facility] [place] [place] [address] * Antithrombin Activity (01/03/2025 7:03 PM CDT) Antithrombin III 86 80 - 125 % Comment: Interpretive Data High concentrations of anti-Xa direct oral anticoagulants can cause Antithrombin activities to be falsely elevated. Current interpretive data was last reviewed 2024 Blood 01/03/2025 7:03 PM CDT 01/03/2025 7:23 PM CDT Rebecca Garcia MD LAB BLOOD ORDERABLES Final Result Performing Organization Address [facility] Co de Phone Number [facility] [address] * (ABNORMAL) POCT glucose (01/03/2025 6:23 PM CDT) Glucose, POC 211(H) 70 - 199 mg/dL Blood 01/03/2025 6:23 PM CDT 01/03/2025 6:23 PM CDT Rebecca Garcia MD LAB POCT ORDERABLES - BERENICE CE Final Result Performing Organization Address City/[facility] Co de Phone Number [facility] [place] [address] * US Abdomen Limited (01/03/2025 6:01 PM CDT) Anatomical Region Laterality Modality Abdomen N/A X-Ray Angiograph y 01/04/2025 9:39 AM CDT Impressions 01/04/2025 9:39 AM CDT Multiple small loculated pockets of fluid in the lower anterior abdomen/pelvis, in keeping with patient history of bladder rupture. The fluid is overall poorly organized and not amenable to drainage at this time. No drainage procedure was performed PLAN: Repeat CT scan in a short interval to assess for evolution and amenability to drainage. Electronically signed by: Malcolm Ventura MD Narrative 01/04/2025 9:39 AM CDT EXAMINATION: LIMITED ABDOMINAL SONOGRAM HISTORY: 84-year-old male with bladder perforation. COMPARISON: CT cystogram 01/01/2025 FINDINGS: The patient was brought to the interventional radiology suite. Limited sonographic evaluation of the lower anterior abdomen/pelvis in the region of interest demonstrated multiple poorly organized loculated pockets of fluid without a confluent targetable collection for percutaneous drainage. Procedure Note Malcolm Ventura MD - 01/04/2025 EXAMINATION: LIMITED ABDOMINAL SONOGRAM HISTORY: 84-year-old male with bladder perforation. COMPARISON: CT cystogram 01/01/2025 FINDINGS: The patient was brought to the interventional radiology suite. Limited sonographic evaluation of the lower anterior abdomen/pelvis in the region of interest demonstrated multiple poorly organized loculated pockets of fluid without a confluent targetable collection for percutaneous drainage. IMPRESSION: Multiple small loculated pockets of fluid in the lower anterior abdomen/pelvis, in keeping with patient history of bladder rupture. The fluid is overall poorly organized and not amenable to drainage at this time. No drainage procedure was performed PLAN: Repeat CT scan in a short interval to assess for evolution and amenability to drainage. Electronically signed by: Malcolm Ventura MD Rebecca Garcia MD [facility] US PROCEDURES Final Re sult * (ABNORMAL) POCT glucose (01/03/2025 4:33 PM CDT) Glucose, POC 245(H) 70 - 199 mg/dL Blood 01/03/2025 4:33 PM CDT 01/03/2025 4:33 PM CDT Rebecca Garcia MD LAB POCT ORDERABLES - BERENICE CE Final Result [facility] Department of Laboratories [place], [place] [id number] * US Vein Duplex Lower Extremity Bilateral Complete (01/03/2025 1:36 PM CDT) Anatomical Region Laterality Modality Vascular Bilateral Ultrasound 01/03/2025 12:5 0 PM CDT Narrative 01/05/2025 1:50 PM CDT [facility] - Department of Vascular Surgery, Vascular Laboratory [address] [place] [id number] Lower Extremity Venous Ultrasound Report Patient Name: RENÉ PEREZ : 1940 (84y 11m) Study Date: 01/03/2025 12:50:39 PM Gender: M Tech: Location: [id number] Ref Provider: REBECCA ALCANTARA Quality: Adequate Order Provider: REBECCA ALCANTARA PROCEDURES: Vascular Report: Venous Duplex imaging was performed bilaterally in the lower extremities. The common femoral, femoral, popliteal, posterior tibial, peroneal veins were evaluated for patency, spontaneity and phasicity with Doppler, compression and augmentation maneuvers. Great saphenous vein proximal at the junction was evaluated with compression maneuvers. INDICATIONS: LLE edema and low aPTT - FINDINGS: Performing Hop Strainer: Regina Arango RVT. Right: Duplex scan reveals dilated vein with echogenic, intraluminal, non-compressible material consistent with acute deep vein thrombosis in the right lower extremity. Deep veins involved include the right soleal sinus veins. All other evaluated veins on the right are patent. Left: Duplex scan reveals dilated vein with echogenic, intraluminal, non-compressible material consistent with acute deep vein thrombosis in the left lower extremity. Deep veins involved include the common femoral vein (occlusive), profunda femoral vein (occlusive), proximal to distal femoral vein (occlusive), popliteal vein, peroneal veins and gastrocnemius veins. All other evaluated veins are patent. Superficial vein thrombus. Superficial veins involved include the left small saphenous vein at the proximal calf. Comments: Unable to locate the left saphenofemoral junction due to an overlying bandage or the left iliac veins due to patient in pain. Unable to visualize deep calf veins secondary to depth of vessels and edema. Provider Notification: Results called on the above date to Jesse QUINTANA at 1:35pm. CONCLUSIONS: 1. There is acute deep vein thrombosis involving vein(s) as noted above in the right lower extremity. 2. There is acute deep vein thrombosis involving vein(s) as noted above in the left lower extremity. 3. Superficial vein thrombus in the left lower extremity. HISTORY: CAD, MIRYAM, T2DM, HTN, left lower extremity edema. PREVIOUS STUDIES: No previous studies for comparison. DISCLAIMER: The study images and the final report will be retained in the patient chart by the Vascular Laboratory for the legally required time period. This chart constitutes the legal record of any testing performed. ATTESTATION: I have reviewed and interpreted the pertinent images and measurements of this study. I attest to the conclusions in the final report that is provided above. Electronically Signed By: Lionel Snyder MD [facility] [phone] 01/05/2025 1:33:15 PM CDT Procedure Note Lionel Snyder MD - 01/05/2025 [facility] - Department of Vascular Surgery,Vascular Laboratory [address] [place] [id number] Lower Extremity Venous Ultrasound Report Patient Name: RENÉ PEREZ : 1940 (84y 11m) Study Date: 01/03/2025 12:50:39 PM Gender: M Tech: Location: [id number] Ref Provider: REBECCA ALCANTARA Quality: Adequate Order Provider: REBECCA ALCANTARA PROCEDURES: Vascular Report: Venous Duplex imaging was performed bilaterally in the lower extremities.The common femoral, femoral, popliteal, posterior tibial, peroneal veins wereevaluated for patency, spontaneity and phasicity with Doppler, compression and augmentationmaneuvers. Great saphenous vein proximal at the junction was evaluated with compressionmaneuvers. INDICATIONS: LLE edema and low aPTT - FINDINGS: Performing Hop Strainer: Regina Arango RVT. Right: Duplex scan reveals dilated vein with echogenic, intraluminal,non-compressible material consistent with acute deep vein thrombosis in the right lower extremity.Deep veins involved include the right soleal sinus veins. All other evaluated veinson the right are patent. Left: Duplex scan reveals dilated vein with echogenic, intraluminal,non-compressible material consistent with acute deep vein thrombosis in the left lower extremity.Deep veins involved include the common femoral vein (occlusive), profunda femoralvein (occlusive), proximal to distal femoral vein (occlusive), popliteal vein, peronealveins and gastrocnemius veins. All other evaluated veins are patent. Superficialvein thrombus. Superficial veins involved include the left small saphenous vein at theproximal calf. Comments: Unable to locate the left saphenofemoral junction due to an overlyingbandage or the left iliac veins due to patient in pain. Unable to visualize deep calf veinssecondary to depth of vessels and edema. Provider Notification: Results called on the above date to Jesse QUINTANA at 1:35pm. CONCLUSIONS: 1. There is acute deep vein thrombosis involving vein(s) as noted above inthe right lower extremity. 2. There is acute deep vein thrombosis involving vein(s) as noted above inthe left lower extremity. 3. Superficial vein thrombus in the left lower extremity. HISTORY: CAD, MIRYAM, T2DM, HTN, left lower extremity edema. PREVIOUS STUDIES: No previous studies for comparison. DISCLAIMER: The study images and the final report will be retained in the patientchart by the Vascular Laboratory for the legally required time period. This chartconstitutes the legal record of any testing performed. ATTESTATION: I have reviewed and interpreted the pertinent images and measurements ofthis study. I attest to the conclusions in the final report that is provided above. Electronically Signed By: Lionel Snyder MD [facility] [phone] 01/05/2025 1:33:15 PM CDT Rebecca Garcia MD IMG US PROCEDURES Final Re sult * POCT glucose (01/03/2025 11:14 AM CDT) Glucose, POC 183 70 - 199 mg/dL Blood 01/03/2025 11:1 4 AM CDT 01/03/2025 11:14 AM CDT Rebecca Garcia MD LAB POCT ORDERABLES - BERENICE CE Final Result [facility] Department [place] [address] * TRANSTHORACIC ECHO (TTE) COMPLETE W DOPPLER/CF W CONTRAST (01/03/2025 9:19 AM CDT) EF Mod BP 65 % CONS SCIMAGE Anatomical Region Laterality Modality Ultrasound 01/03/2025 8:19 AM CDT Narrative 01/03/2025 10:[address] [facility] [place] [address] Transthoracic Echocardiographic Report Patient Name: RENÉ PEREZ M : 1940 (84y 11m) Gender: M Study Date: 01/03/2025 08:19:41 AM Ht(Inch): 73 Wt(Lb): 209 BSA: 2.21 Hop Strainer: Melissa Miller Location: [id number] Order Provider: REBECCA ALCANTARA Heart Rate: 127 BMI: 27.57 BP: 104 / 48 Ref Provider: REBECCA ALCANTARA PROCEDURES: Echocardiographic Report: Transthoracic complete echo with contrast, 2D, spectral and tissue Doppler, color flow Doppler, M-mode. Contrast: Contrast Enhancement was Employed: After initial imaging due to sub- optimal quality related to co-morbidity defined by patient's body habitus, due to suboptimal image quality with inadequate visualization of at least 2 of 16 LV wall segments in any view after initial imaging. Perflutren contrast was administered using the volume necessary to obtain adequate images and. 0.4 ml Optison Administered, (2.6 ml wasted). INDICATIONS: Bacteremia. CONCLUSIONS: 1. Technically difficult study due to limited windows and significant sinus tachycardia (HR in 120s). 2. Normal left ventricular size based on volume index. Concentric LV remodeling. Normal left ventricular systolic function. The Ejection Fraction (Da Silva's) is measured at 65 %. Normal diastolic function. 3. Normal right ventricular size. Mild right ventricular hypokinesis. 4. Mild tricuspid regurgitation. 5. Mild aortic root dilation at sinuses of Valsalva (4.2 cm). 6. No vegetations seen on MV. AV leaflets are thickened, particularly right cusp, but no definite vegetations seen. Views of TV and PV are inadequate to rule out vegetation. Clinical correlation advised. COMPARISONS: No previous study available for comparison. ATTESTATION: I have personally reviewed and interpreted this study without fellow or resident. - DISCLAIMER: The study images and the final report will be retained in the patient chart by the Echo Laboratory for the legally required time period. This chart constitutes the legal record of any testing performed. FINDINGS: Left Ventricle: Normal left ventricular size based on volume index. Concentric LV remodeling. Normal left ventricular systolic function. The Ejection Fraction (Da Silva's) is measured at 65 %. Normal diastolic function. LV strain not assessed. Right Ventricle: Normal right ventricular size. Mild right ventricular hypokinesis. Left Atrium: The left atrium is normal in size. Right Atrium: The right atrium is normal in size. Mitral Valve: Normal mitral valve structure. No mitral regurgitation. No stenosis present. No MV vegetations seen. Aortic Valve: Trileaflet aortic valve. Mioderately thickened aortic valve leaflets with more pronounced nodular thickening of the right cusp, most consistent with calcification. No aortic regurgitation. No aortic valve stenosis. Tricuspid Valve: Normal tricuspid valve structure. Mild tricuspid regurgitation. No tricuspid valve stenosis. Pulmonic Valve: The pulmonic valve is not well visualized due to limited parasternal windows. No pulmonic regurgitation. No pulmonic valve stenosis present. Pericardium: No pericardial effusion. There is an anterior echo free space suggestive of epicardial fat pad. Aorta: Mild aortic root dilation at sinuses of Valsalva (4.2 cm). Dilation of the ascending aorta when indexed. IVC: IVC not visualized due to no subcostal views obtained. PASP: Estimated PASP = 24 mmHg + RA pressure. MEASUREMENTS: 2D/MM Value Range Doppler Value Range LVIDd 2D 4.07 cm [ 4.20 - 5.80 ] AV Peak Artemio 1.3 m/s [ 1.0 - 1.7 ] LVIDs 2D 3.05 cm [ 2.50 - 4.00 ] AV Peak PG 6.76 mmHg IVSd 2D 0.86 cm [ 0.60 - 1.00 ] AV Mean PG 4 mmHg LVPWd 2D 1.30 cm [ 0.60 - 1.00 ] AV VTI 21.7 cm LV Thickness Ratio 0.7 LVOT Peak Artemio 1.1 m/s [ 0.7 - 1.1 ] LV FS 2D 25.11 % [ 25.00 - 43.00 ] LVOT Peak PG 4.84 mmHg LV Mass 2D 147.85 g LVOT Mean PG 2 mmHg LV Mass Index 2D 66.90 g/m2 LVOT VTI 17.1 cm RWT 0.64 LVOT Diam 2.09 cm EDV Mod BP 80.00 ml [ 62.00 - 150.00 ] CRISTOBAL VTI 2.70 cm2 LV EDV Index 36.20 ml/m2 LVOT/AV VTI 0.79 - Dimensionless index (DVI) ESV Mod BP 28.00 ml [ 21.00 - 61.00 ] MV E Peak Artemio 0.6 m/s [ 0.6 - 1.3 ] EF Mod BP 65 % [ 52 - 72 ] MV A Peak Artemio 0.6 m/s [ 1.0 - 1.2 ] LA Length 4C 5.71 cm MV E/A 1.1 ratio [ 0.8 - 1.5 ] RV Base Dimen 2D 3.5 cm [ 2.5 - 4.2 ] MV Decel Time 170.99 msec [ 104.00 - 258.00 ] TAPSE 1.03 cm [ 1.71 - 5.00 ] Med E` Artemio 11.4 cm/sec [ 8.0 - 25.0 ] RA Volume 32.19 ml Lat E` Artemio 11.9 cm/sec [ 10.0 - 25.0 ] RA Volume Index 14.57 ml/m2 Average E/E` 5.15 AoR Diam 2D 4.25 cm [ 3.10 - 3.70 ] RV S` 19.28 cm/sec Ao Root Index 1.92 cm/m2 [ 1.00 - 2.00 ] TR Peak Artemio 2.8 m/s [ 1.0 - 2.8 ] Asc Ao Diam 2D 4.16 cm TR Peak PG 31.4 mmHg Asc Ao Index 1.88 cm/m2 Electronically Signed By: Roney Gonzales MD 01/03/2025 10:01:33 AM CDT Procedure Note Roney Gonzales MD PhD - 01/03/2025 [facility] [place] [address] Transthoracic Echocardiographic Report Patient Name: RENÉ PEREZ M : 1940 (84y 11m) Gender: M Study Date: 01/03/2025 08:19:41 AM Ht(Inch): 73 Wt(Lb): 209 BSA: 2.21 Hop Strainer: Melissa Miller Location: [id number] Order Provider: REBECCA CONTI Heart Rate: 127 BMI: 27.57 BP: 104 / 48 Ref Provider: REBECCA CONTI PROCEDURES: Echocardiographic Report: Transthoracic complete echo with contrast, 2D,spectral and tissue Doppler, color flow Doppler, M-mode. Contrast: Contrast Enhancement was Employed: After initial imaging due tosub- optimal quality related to co-morbidity defined by patient's body habitus, due tosuboptimal image quality with inadequate visualization of at least 2 of 16 LV wallsegments in any view after initial imaging. Perflutren contrast was administered using thevolume necessary to obtain adequate images and. 0.4 ml Optison Administered, (2.6ml wasted). INDICATIONS: Bacteremia. CONCLUSIONS: 1. Technically difficult study due to limited windows and significantsinus tachycardia (HR in 120s). 2. Normal left ventricular size based on volume index. Concentric LVremodeling. Normal left ventricular systolic function. The Ejection Fraction (Da Silva's) ismeasured at 65 %. Normal diastolic function. 3. Normal right ventricular size. Mild right ventricular hypokinesis. 4. Mild tricuspid regurgitation. 5. Mild aortic root dilation at sinuses of Valsalva (4.2 cm). 6. No vegetations seen on MV. AV leaflets are thickened, particularlyright cusp, but no definite vegetations seen. Views of TV and PV are inadequate to rule outvegetation. Clinical correlation advised. COMPARISONS: No previous study available for comparison. ATTESTATION: I have personally reviewed and interpreted this study without fellow orresident. - DISCLAIMER: The study images and the final report will be retained in the patientchart by the Echo Laboratory for the legally required time period. This chart constitutesthe legal record of any testing performed. FINDINGS: Left Ventricle: Normal left ventricular size based on volume index.Concentric LV remodeling. Normal left ventricular systolic function. The EjectionFraction (Da Silva's) is measured at 65 %. Normal diastolic function. LV strain not assessed. Right Ventricle: Normal right ventricular size. Mild right ventricularhypokinesis. Left Atrium: The left atrium is normal in size. Right Atrium: The right atrium is normal in size. Mitral Valve: Normal mitral valve structure. No mitral regurgitation. Nostenosis present. No MV vegetations seen. Aortic Valve: Trileaflet aortic valve. Mioderately thickened aortic valveleaflets with more pronounced nodular thickening of the right cusp, most consistent withcalcification. No aortic regurgitation. No aortic valve stenosis. Tricuspid Valve: Normal tricuspid valve structure. Mild tricuspidregurgitation. No tricuspid valve stenosis. Pulmonic Valve: The pulmonic valve is not well visualized due to limitedparasternal windows. No pulmonic regurgitation. No pulmonic valve stenosis present. Pericardium: No pericardial effusion. There is an anterior echo free spacesuggestive of epicardial fat pad. Aorta: Mild aortic root dilation at sinuses of Valsalva (4.2 cm). Dilationof the ascending aorta when indexed. IVC: IVC not visualized due to no subcostal views obtained. PASP: Estimated PASP = 24 mmHg + RA pressure. MEASUREMENTS: 2D/MM Value Range DopplerValue Range LVIDd 2D 4.07 cm [ 4.20 - 5.80 ] AV Peak Vel1.3 m/s [ 1.0 - 1.7 ] LVIDs 2D 3.05 cm [ 2.50 - 4.00 ] AV Peak PG6.76 mmHg IVSd 2D 0.86 cm [ 0.60 - 1.00 ] AV Mean PG4 mmHg LVPWd 2D 1.30 cm [ 0.60 - 1.00 ] AV VTI21.7 cm LV Thickness Ratio 0.7 LVOT Peak Vel1.1 m/s [ 0.7 - 1.1 ] LV FS 2D 25.11 % [ 25.00 - 43.00 ] LVOT Peak PG4.84 mmHg LV Mass 2D 147.85 g LVOT Mean PG2 mmHg LV Mass Index 2D 66.90 g/m2 LVOT VTI17.1 cm RWT 0.64 LVOT Diam2.09 cm EDV Mod BP 80.00 ml [ 62.00 - 150.00 ] CRISTOBAL VTI2.70 cm2 LV EDV Index 36.20 ml/m2 LVOT/AV VTI0.79 - Dimensionless index (DVI) ESV Mod BP 28.00 ml [ 21.00 - 61.00 ] MV E Peak Vel0.6 m/s [ 0.6 - 1.3 ] EF Mod BP 65 % [ 52 - 72 ] MV A Peak Vel0.6 m/s [ 1.0 - 1.2 ] LA Length 4C 5.71 cm MV E/A1.1 ratio [ 0.8 - 1.5 ] RV Base Dimen 2D 3.5 cm [ 2.5 - 4.2 ] MV Decel Iebx278.99 msec [ 104.00 - 258.00 ] TAPSE 1.03 cm [ 1.71 - 5.00 ] Med E` Vel11.4 cm/sec [ 8.0 - 25.0 ] RA Volume 32.19 ml Lat E` Vel11.9 cm/sec [ 10.0 - 25.0 ] RA Volume Index 14.57 ml/m2 Average E/E`5.15 AoR Diam 2D 4.25 cm [ 3.10 - 3.70 ] RV S`19.28 cm/sec Ao Root Index 1.92 cm/m2 [ 1.00 - 2.00 ] TR Peak Vel2.8 m/s [ 1.0 - 2.8 ] Asc Ao Diam 2D 4.16 cm TR Peak PG31.4 mmHg Asc Ao Index1.88 cm/m2 Electronically Signed By: oRney Gonzales MD 01/03/2025 10:01:33 AM CDT Rebecca Garcia MD CV ECHO PROCEDURES Final R esult * POCT glucose (01/03/2025 7:22 AM CDT) Glucose, POC 199 70 - 199 mg/dL Blood 01/03/2025 7:22 AM CDT 01/03/2025 7:22 AM CDT Result [facility] Rebecca Garcia MD LAB POCT ORDERABLES - BERENICE CE Final Result Performing Organization Address [facility] Co de Phone Number [facility] [place] [place] [address] * POCT glucose (01/03/2025 3:55 AM CDT) Glucose, POC 199 70 - 199 mg/dL Blood 01/03/2025 3:55 AM CDT 01/03/2025 3:55 AM CDT Rebecca Gracia MD LAB POCT ORDERABLES - BERENICE CE Final Result Performing Organization Address [facility] Co de Phone Number [facility] [place] [address] * POCT glucose (01/02/2025 11:31 PM CDT) Glucose, POC 162 70 - 199 mg/dL Blood 01/02/2025 11:3 1 PM CDT 01/02/2025 11:31 PM CDT Rebecca Garcia MD LAB POCT ORDERABLES - BERENICE CE Final Result Performing Organization Address City/[facility] Co de Phone Number [facility] [place] [address] * POCT glucose (01/02/2025 7:38 PM CDT) Glucose, POC 129 70 - 199 mg/dL Blood 01/02/2025 7:38 PM CDT 01/02/2025 7:38 PM CDT Rebecca Garcia MD LAB POCT ORDERABLES - BERENICE CE Final Result Performing Organization Address [facility] Co de Phone Number [facility] [place] [address] * POCT glucose (01/02/2025 4:29 PM CDT) Glucose, POC 100 70 - 199 mg/dL Blood 01/02/2025 4:29 PM CDT 01/02/2025 4:29 PM CDT Rebecca Garcia MD LAB POCT ORDERABLES - BERENICE CE Final Result Performing Organization Address City/[facility] Co de Phone Number [facility] [place] [address] * POCT glucose (01/02/2025 1:03 PM CDT) Glucose, POC 97 70 - 199 mg/dL Blood 01/02/2025 1:03 PM CDT 01/02/2025 1:03 PM CDT Rebecca Garcia MD LAB POCT ORDERABLES - BERENICE CE Final Result Performing Organization Address [facility] de Phone Number [facility] [place] [address] * (ABNORMAL) aPTT (01/02/2025 10:38 AM CDT) aPTT 23(L) 28 - 38 sec Comment: Interpretive Data Heparin therapeutic range: 66.0 - 100.0 seconds. Range based on correlation with therapeutic heparin activity range of 0.3 - 0.7 Units/mL. Current interpretive data was last revised on 2023. Blood 01/02/2025 10:3 8 AM CDT 01/02/2025 10:52 AM CDT Rebecca Garcia MD LAB BLOOD ORDERABLES Final Result Performing Organization Address [facility] de Phone Number [facility] [place] [address] * Protime-INR (01/02/2025 10:38 AM CDT) PT 12.9 9.7 - 13.0 sec INR 1.19 0.90 - 1.20 [facility] Comment: Interpretive data Oral anticoagulant therapeutic ranges: Venous thromboembolism prophylaxis or treatment: 2.0-3.0 CARDIOLOGY Standard range: 2.0-3.0 High-intensity range: 2.5-3.5 Refer to indication-specific guidelines for appropriate target ranges for prosthetic heart valve replacement. Current interpretive data was last revised on 2019. Blood 01/02/2025 10:3 8 AM CDT 01/02/2025 10:52 AM CDT Rebecca Garcia MD LAB BLOOD ORDERABLES Final Result Performing Organization Address [facility]/ZIP Co de Phone Number [facility] [place] [address] * POCT glucose (01/02/2025 7:25 AM CDT) [facility] Glucose, POC 78 70 - 199 mg/dL Blood 01/02/2025 7:25 AM CDT 01/02/2025 7:25 AM CDT us Rebecca Garcia MD LAB POCT ORDERABLES - BERENICE CE Final Result Performing Organization Address [facility] Co de Phone Number [facility] [place] [place] [address] * ECG 12 lead (01/02/2025 7:13 AM CDT) [facility] Ventricular Rate EKG/Min 102 BPM [facility] Atrial Rate 102 BPM [facility] ME-Interval (MSEC) 184 ms [facility] QRS-Interval (MSEC) 124 ms [facility] QT-Interval (MSEC) 374 ms [facility] QTc 487 ms [facility] R [place] -32 degrees [facility] T [place] 21 degrees [facility] Diagnosis Sinus tachycardia Left axis deviation Right bundle branch block Inferior infarct , age undetermined Abnormal ECG When compared with ECG of 26-JUN-2023 12:42, Significant changes have occurred Confirmed by HALEIGH DONG M.D ([id number]) on 01/02/2025 10:28:47 AM [facility] 01/02/2025 7:13 AM CDT 01/02/2025 10:28 AM CDT us Rebecca Garcia MD ECG ORDERABLES Final Resu lt Performing Organization Address City/[facility]/ZIP Co de Phone Number [facility] * eGFR (01/02/2025 5:14 AM CDT) [facility] eGFR 81 >=60 mL/min/1. 73 m2 Comment: Interpretive Data [...] interpretive data was last reviewed 2021. Blood 01/02/2025 5:14 AM CDT 01/02/2025 6:38 AM CDT us Brittney Clayton MD LAB BLOOD ORDERABLES Final Result [facility] [place] [address] * (ABNORMAL) Differential, auto (01/02/2025 5:14 AM CDT) Neutrophil abs 16.10(H) 1.50 - 6.50 K/cumm Imm gran abs 0.17(H) 0.00 - 0.10 K/cumm [facility] Lymphocyte abs 0.66(L) 0.80 - 3.30 K/cumm [facility] Monocyte abs 0.76 0.20 - 0.80 K/cumm [facility] Eosinophil abs 0.01 0.00 - 0.50 K/cumm [facility] Basophil abs 0.02 0.00 - 0.10 K/cumm [facility] Neutrophil pct 90.8 % [facility] Comment: Interpretive Data Percent cell count reference ranges are not reported, since discordance with absolute values may lead to misinterpretation of CBC data. Current Interpretive Data was last revised on 2017. Imm gran pct 1.0 % [facility] Comment: Interpretive Data Percent cell count reference ranges are not reported, since discordance with absolute values may lead to misinterpretation of CBC data. Current Interpretive Data was last revised on 2017. Lymphocyte pct 3.7 % [facility] Comment: Interpretive Data Percent cell count reference ranges are not reported, since discordance with absolute values may lead to misinterpretation of CBC data. Current Interpretive Data was last revised on 2017. Monocyte pct 4.3 % [facility] Comment: Interpretive Data Percent cell count reference ranges are not reported, since discordance with absolute values may lead to misinterpretation of CBC data. Current Interpretive Data was last revised on 2017. Eosinophil pct 0.1 % [facility] Comment: Interpretive Data Percent cell count reference ranges are not reported, since discordance with absolute values may lead to misinterpretation of CBC data. Current Interpretive Data was last revised on 2017. Basophil pct 0.1 % [facility] Comment: Interpretive Data Percent cell count reference ranges are not reported, since discordance with absolute values may lead to misinterpretation of CBC data. Current Interpretive Data was last revised on 2017. Blood 01/02/2025 5:14 AM CDT 01/02/2025 6:38 AM CDT us Brittney Clayton MD LAB BLOOD ORDERABLES Final Result [facility] [place] [address] * (ABNORMAL) CBC with auto differential (01/02/2025 5:14 AM CDT) WBC 17.72(H) 3.80 - 9.90 K/cumm Hgb 9.8(L) 13.0 - 17.5 g/dL [facility] Hct 29.4(L) 38.9 - 50.3 % [facility] Plt 203 150 - 400 K/cumm [facility] MPV 10.1 9.1 - 12.3 fL [facility] RBC 3.46(L) 4.30 - 5.80 M/cumm [facility] MCV 85.0 81.3 - 96.4 fL [facility] MCH 28.3 27.1 - 33.3 pg [facility] MCHC 33.3 32.3 - 35.7 g/dL [facility] RDW CV 17.0(H) 11.1 - 14.9 % [facility] RDW SD 51.1(H) 35.7 - 48.1 fL [facility] NRBC abs 0.00 0.00 - 0.01 K/cumm [facility] Blood 01/02/2025 5:14 AM CDT 01/02/2025 6:38 AM CDT us Brittney Clayton MD LAB BLOOD ORDERABLES Final Result Performing Organization Address City/[facility] Co de Phone Number [facility] [place] [address] * (ABNORMAL) Hemoglobin A1c (01/02/2025 5:14 AM CDT) Hgb A1C 9.0(H) 4.0 - 5.6 % Estimated Average Glucose 212 mg/dL [facility] Comment: The ADA recommends reporting an estimated Average Glucose (eAG) with all Hemoglobin A1c results using the equation derived from a study of 507 normal and diabetic adults. Minority populations were underrepresented and children were not included. (Diabetes Care 2020; 43(S1): S66-S76). The eAG is not equivalent to a fasting glucose. Blood 01/02/2025 5:14 AM CDT 01/02/2025 6:38 AM CDT us Rebecca Garcia MD LAB BLOOD ORDERABLES Final Result Performing Organization Address City/[facility]/ZIP Co de Phone Number [facility] Department [place] [employer] [place] [address] * (ABNORMAL) Basic metabolic panel (01/02/2025 5:14 AM CDT) Sodium 141 135 - 145 mmol/L Potassium, pl 3.8 3.3 - 4.9 mmol/L [facility] Chloride 110 97 - 110 mmol/L [facility] CO2 22 22 - 32 mmol/L [facility] Anion gap 9 2 - 15 mmol/L [facility] BUN 23 6 - 25 mg/dL [facility] Creatinine 0.94 0.80 - 1.30 mg/dL [facility] Glucose 85 70 - 199 mg/dL [facility] Comment: Interpretive Data Fasting glucose >/= 126 mg/dl is diagnostic for diabetes. Fasting is defined as no caloric intake for at least 8 hours. Fasting glucose between 100 mg/dl to 125 mg/dl is diagnostic of prediabetes. In a patient with classic symptoms of hyperglycemia or hyperglycemic crisis, a random glucose >/= 200 mg/dl is diagnostic for diabetes. In the absence of unequivocal hyperglycemia, results should be confirmed by repeat testing. The classification and Diagnosis of Diabetes Diabetes Care 2021; 46: S19-S40. Current interpretive data was last revised 2022. Calcium 8.4(L) 8.5 - 10.3 mg/dL [facility] Blood 01/02/2025 5:14 AM CDT 01/02/2025 6:38 AM CDT Brittney Clayton MD LAB BLOOD ORDERABLES Final Result Performing Organization Address [facility]/ZIP Co de Phone Number [facility] Department [place] [employer] [place] [address] * POCT glucose (01/02/2025 12:47 AM CDT) [facility] Signature Glucose, POC 147 70 - 199 mg/dL Blood 01/02/2025 12:4 7 AM CDT 01/02/2025 12:47 AM CDT Brittney Clayton MD LAB POCT ORDERABLES - DEVICE Final Result Performing Organization Address [facility]/ZIP Co de Phone Number [facility] Department [place] [place] [address] * ME CRITICAL CARE ILL/INJURED PATIENT INIT 30-74 MIN (01/01/2025 10:46 PM CDT) Narrative Azra Davila MD - 01/01/2025 10:46 PM CDT Azra Davila MD 01/01/2025 11:17 PM Critical Care Performed by: Azra Davila MD Authorized by: Azra Davila MD Critical care provider statement: As reflected in the history, physical exam, orders, notes, and/or MDM, I was personally present while the patient was critically ill and provided critical care services for 35 minutes, excluding time involved in separately billable procedures. Critical care was necessary to treat or prevent imminent or life-threatening deterioration of the following condition(s): acute interabdominal abscess sepsis Critical care was time spent by me providing the following: continuous telemetry, continuous pulse oximetry, interpretation of bedside monitors, imaging, and arterial/venous lab draws and serial bedside patient exams I provided emergent necessary critical care medicine services to this patient. I ordered and reviewed test results and/or imaging studies. I spent time discussing the management of this critically ill patient with consultants and the medical staff. I spent time documenting in the medical record. I spent time discussing the management and therapeutic options for this critically ill patient with the patient themselves or with the appropriate designated surrogate decision-maker. us Azra Davila MD IN CLINIC/BEDSIDE ORDERABLE S Final Result * CT Cystogram WO Contrast (01/01/2025 9:57 PM CDT) Anatomical Region Laterality Modality Pelvis N/A Computed Tomogra phy 01/01/2025 10:1 8 PM CDT Impressions 01/02/2025 8:17 AM CDT 1. 1.1 cm defect in the anterior bladder wall with extraperitoneal bladder rupture. No intraperitoneal component. 2. There is peritoneal stranding, new from 02/16/2024, which may be reactive, less likely representing peritoneal carcinomatosis. Recommend follow up of the Incidental peritoneal stranding Additional Imaging In [address] abdomen and pelvis with contrast. Dictated by: Darnell Dempsey MD The radiology attending physician has personally reviewed this study, and had reviewed and/or edited this written report and agrees with it. Electronically signed by: Katharina Morgan M.D. Narrative 01/02/2025 8:17 AM CDT EXAMINATION: Computed tomography of the pelvis without intravenous contrast HISTORY: Transurethral resection of the prostate one month ago. Evaluate for bladder leak. TECHNIQUE: The urinary bladder was allowed to fill by gravity with dilute Opti-Ray 350 contrast in saline through the previously placed bladder catheter to full distension. Transaxial computed tomographic images of the pelvis were obtained without intravenous contrast according to the cystography protocol. The bladder was then drained of contrast by gravity. COMPARISON: 01/01/2025, 4:21 PM FINDINGS: A scan of the pelvis was performed prior to filling the bladder with contrast. This scan revealed layering excreted contrast in the bladder from the patient's prior same day contrast enhanced CT. On this scan, contrast could already be seen extending outside of the bladder into the space of Retzius. After instilling approximately 400 mL of contrast solution, the pelvis was scanned and demonstrates further filling of contrast into the space of Retzius. There is a approximately 1.1 cm defect in the anterior bladder wall. No intraperitoneal component is identified. No evidence of fistulization. Left renal cyst. There is left hydroureteronephrosis without visualized obstructing lesion. The imaged small and large bowel are normal in caliber. There is new peritoneal and mesenteric stranding within the prior exam, indeterminate. There is a large stool burden within the rectosigmoid colon. No ascites or pneumoperitoneum. There are diffuse atherosclerotic calcifications of the distal aorta and iliac vessels. No pelvic lymphadenopathy. No suspicious osseous lesion. Procedure Note Katharina Morgan MD - 01/02/2025 EXAMINATION: Computed tomography of the pelvis without intravenous contrast HISTORY: Transurethral resection of the prostate one month ago. Evaluate for bladder leak. TECHNIQUE: The urinary bladder was allowed to fill by gravity with dilute Opti-Ray 350 contrast in saline through the previously placed bladder catheter to full distension. Transaxial computed tomographic images of the pelvis were obtained without intravenous contrast according to the cystography protocol. The bladder was then drained of contrast by gravity. COMPARISON: 01/01/2025, 4:21 PM FINDINGS: A scan of the pelvis was performed prior to filling the bladder with contrast. This scan revealed layering excreted contrast in the bladder from the patient's prior same day contrast enhanced CT. On this scan, contrast could already be seen extending outside of the bladder into the space of Retzius. After instilling approximately 400 mL of contrast solution, the pelvis was scanned and demonstrates further filling of contrast into the space of Retzius. There is a approximately 1.1 cm defect in the anterior bladder wall. No intraperitoneal component is identified. No evidence of fistulization. Left renal cyst. There is left hydroureteronephrosis without visualized obstructing lesion. The imaged small and large bowel are normal in caliber. There is new peritoneal and mesenteric stranding within the prior exam, indeterminate. There is a large stool burden within the rectosigmoid colon. No ascites or pneumoperitoneum. There are diffuse atherosclerotic calcifications of the distal aorta and iliac vessels. No pelvic lymphadenopathy. No suspicious osseous lesion. IMPRESSION: 1. 1.1 cm defect in the anterior bladder wall with extraperitoneal bladder rupture. No intraperitoneal component. 2. There is peritoneal stranding, new from 02/16/2024, which may be reactive, less likely representing peritoneal carcinomatosis. Recommend follow up of the Incidental peritoneal stranding Additional Imaging In [address] abdomen and pelvis with contrast. Dictated by: Darnell Dempsey MD The radiology attending physician has personally reviewed this study, and had reviewed and/or edited this written report and agrees with it. Electronically signed by: Katharina Morgan M.D. Gagan Teran MD IMG CT PROCEDURES Final Resu lt * (ABNORMAL) Urinalysis reflex to microscopic and culture Urine (01/01/2025 9:00 PM CDT) Color, ur Straw Yellow Clarity, ur Cloudy(A) Clear [facility] Specific gravity, ur 1.035(H) 1.003 - 1.030 [facility] pH, urine 6.0 [facility] Comment: Interpretive Data U rine pH is affected by diet, medications, systemic acid-base disturbances, and renal tubular function. pH may affect urinary stone formation. For example, urine pH below 6.0 may help reduce the tendency for calcium phosphate stones and pH greater than 6.0 may reduce the tendency for uric acid stone formation. Source: [facility] Laboratories Current Interpretive Data was last revised on 2017 Protein, ur ql 1+(A) Negative [facility] Glucose, ur ql 4+(A) Negative [facility] Ketones, ur Negative Negative [facility] Bilirubin, ur Negative Negative [facility] Blood, ur 1+(A) Negative [facility] Urobilinogen, ur <2.0 <2.0 mg/dL [facility] Nitrite, ur Negative Negative [facility] Leukocyte esterase, ur 3+(A) Negative [facility] UA reflex comment Reflex to microscopic UA will be performed. [facility] Urine 01/01/2025 9:00 PM CDT 01/01/2025 9:05 PM CDT Eliazar Gar MD LAB MICROBIOLOGY - GEN ERAL ORDERABLES Final Result Performing Organization Address [facility] Co de Phone Number [facility] [place] [employer] [place] [address] * (ABNORMAL) Urinalysis, microscopic only (01/01/2025 9:00 PM CDT) WBC, ur >50(A) 0 - 5 /HPF RBC, ur 21-50(A) 0 - 2 /HPF [facility] Bacteria, ur 4+(A) [facility] Mucous, ur Present(A) [facility] Culture Reflex Comment Reflex to urine culture will be performed. [facility] Urine 01/01/2025 9:00 PM CDT 01/01/2025 9:05 PM CDT Eliazar Gar MD LAB URINE ORDERABLES F inal Result Performing Organization Address City/[facility] Co de Phone Number [facility] [place] [employer] [place] [address] * Urine culture Urine (01/01/2025 9:00 PM CDT) Report Final Report: No growth Urine 01/01/2025 9:00 PM CDT 01/01/2025 11:12 PM CDT Narrative [facility] - 01/03/2025 7:53 AM CDT Urine culture reflexed based upon urinalysis results. Testing performed by [facility] Microbiology Laboratory ([phone]) Eliazar Gar MD LAB MICROBIOLOGY - GEN ERAL ORDERABLES Final Result [facility] Department [place] [address] * Blood culture Blood Peripheral (01/01/2025 8:12 PM CDT) Report Final Report: No growth Blood (Peripheral) 01/01/2025 8:12 PM CDT 01/01/2025 8:23 PM CDT Narrative [facility] - 01/06/2025 7:00 AM CDT From a different site than #1. Draw Blood cultures before administration of Antibiotics Collection->Peripheral 1. Blood cultures are incubated for 4 days on a continuously monitored blood culture system. The first report of a negative culture is issued within 24 hours of receipt of the specimen in the laboratory. 2. Positive culture results are reported as soon as they are detected. 3. The most important factor for detection of microbes in the setting of bloodstream infection is the volume of blood submitted for culture. Failure to collect an optimal blood volume can result in false negative blood cultures. 4. For pediatric patients, the recommended blood volume to collect follows a weight based strategy. See the electronic test catalog for collection instructions. 5. For positive blood cultures, a rapid molecular test may be performed for organism identification using the dora ePlex blood culture identification panel for gram positive (BCID-GP) and gram negative (BCID-GN) organisms. This nucleic acid amplification test detects microbial DNA in positive blood culture broth. This assay has been cleared by the [place] Food and Drug Administration and its performance characteristics have been verified by the [facility] Microbiology Laboratory. For questions about this culture, contact the Microbiology Laboratory at [phone]. Interpretive data was last revised on 24. us Eliazar Gar MD LAB MICROBIOLOGY - GEN ERAL ORDERABLES Final Result [facility] Department [place] [address] * CT Body Outside Consult (01/01/2025 8:03 PM CDT) Anatomical Region Laterality Modality Body N/A Computed Tomogra phy 01/01/2025 10:3 8 PM CDT Impressions 01/02/2025 8:10 AM CDT This study was initially nominated as a consult on outside images via Outside Image Sharing Service. However, a consult was not performed because this study should've been nominated as reference for comparison with more recent study performed at [facility]. Accordingly, there will be no separate report of this study generated by a [facility] Radiologist. Dictated by: Darnell Dempsey MD The radiology attending physician has personally reviewed this study, and had reviewed and/or edited this written report and agrees with it. Electronically signed by: Katharina Morgan M.D. Narrative 01/02/2025 8:10 AM CDT EXAMINATION: CHANGE CONSULT ON OUTSIDE IMAGES TO REFERENCE IMAGES Procedure Note Katharina Morgan MD - 01/02/2025 EXAMINATION: CHANGE CONSULT ON OUTSIDE IMAGES TO REFERENCE IMAGES IMPRESSION: This study was initially nominated as a consult on outside images via Outside Image Sharing Service. However, a consult was not performed because this study should've been nominated as reference for comparison with more recent study performed at [facility]. Accordingly, there will be no separate report of this study generated by a [facility] Radiologist. Dictated by: Darnell Dempsey MD The radiology attending physician has personally reviewed this study, and had reviewed and/or edited this written report and agrees with it. Electronically signed by: Katharina Morgan M.D. us Azra Davila MD IMG CT PROCEDURES Final Res ult * Blood culture Blood Peripheral (01/01/2025 8:03 PM CDT) Report Final Report: No growth Blood (Peripheral) 01/01/2025 8:03 PM CDT 01/01/2025 8:23 PM CDT Narrative [facility] - 01/06/2025 7:00 AM CDT Draw Blood cultures before administration of Antibiotics Collection->Peripheral 1. Blood cultures are incubated for 4 days on a continuously monitored blood culture system. The first report of a negative culture is issued within 24 hours of receipt of the specimen in the laboratory. 2. Positive culture results are reported as soon as they are detected. 3. The most important factor for detection of microbes in the setting of bloodstream infection is the volume of blood submitted for culture. Failure to collect an optimal blood volume can result in false negative blood cultures. 4. For pediatric patients, the recommended blood volume to collect follows a weight based strategy. See the electronic test catalog for collection instructions. 5. For positive blood cultures, a rapid molecular test may be performed for organism identification using the dora ePlex blood culture identification panel for gram positive (BCID-GP) and gram negative (BCID-GN) organisms. This nucleic acid amplification test detects microbial DNA in positive blood culture broth. This assay has been cleared by the [place] Food and Drug Administration and its performance characteristics have been verified by the [facility] Microbiology Laboratory. For questions about this culture, contact the Microbiology Laboratory at [phone]. Interpretive data was last revised on 24. Eliazar Gar MD LAB MICROBIOLOGY - GEN ERAL ORDERABLES Final Result [facility] [place] [address] * Sepsis Lactate w/ Reflex (01/01/2025 7:51 PM CDT) Sepsis Lactate 0.8 0.7 - 2.0 mmol/L Blood 01/01/2025 7:51 PM CDT 01/01/2025 8:19 PM CDT Eliazar Gar MD LAB BLOOD ORDERABLES F inal Result Performing Organization Address [facility] Co de Phone Number [facility] [place] [address] * eGFR (01/01/2025 7:51 PM CDT) eGFR 81 >=60 mL/min/1. 73 m2 Comment: Interpretive Data [...] interpretive data was last reviewed 2021. Blood 01/01/2025 7:51 PM CDT 01/01/2025 8:23 PM CDT Eliazar Gar MD LAB BLOOD ORDERABLES F inal Result Performing Organization Address [facility] Co de Phone Number [facility] [place] [address] * (ABNORMAL) Differential, auto (01/01/2025 7:51 PM CDT) Neutrophil abs 16.92(H) 1.50 - 6.50 K/cumm Imm gran abs 0.20(H) 0.00 - 0.10 K/cumm [facility] Lymphocyte abs 0.56(L) 0.80 - 3.30 K/cumm [facility] Monocyte abs 0.37 0.20 - 0.80 K/cumm [facility] Eosinophil abs 0.00 0.00 - 0.50 K/cumm [facility] Basophil abs 0.02 0.00 - 0.10 K/cumm [facility] Neutrophil pct 93.7 % [facility] Comment: Interpretive Data Percent cell count reference ranges are not reported, since discordance with absolute values may lead to misinterpretation of CBC data. Current Interpretive Data was last revised on 2017. Imm gran pct 1.1 % [facility] Comment: Interpretive Data Percent cell count reference ranges are not reported, since discordance with absolute values may lead to misinterpretation of CBC data. Current Interpretive Data was last revised on 2017. Lymphocyte pct 3.1 % [facility] Comment: Interpretive Data Percent cell count reference ranges are not reported, since discordance with absolute values may lead to misinterpretation of CBC data. Current Interpretive Data was last revised on 2017. Monocyte pct 2.0 % [facility] Comment: Interpretive Data Percent cell count reference ranges are not reported, since discordance with absolute values may lead to misinterpretation of CBC data. Current Interpretive Data was last revised on 2017. Eosinophil pct 0.0 % [facility] Comment: Interpretive Data Percent cell count reference ranges are not reported, since discordance with absolute values may lead to misinterpretation of CBC data. Current Interpretive Data was last revised on 2017. Basophil pct 0.1 % [facility] Comment: Interpretive Data Percent cell count reference ranges are not reported, since discordance with absolute values may lead to misinterpretation of CBC data. Current Interpretive Data was last revised on 2017. Blood 01/01/2025 7:51 PM CDT 01/01/2025 8:54 PM CDT Eliazar Gar MD LAB BLOOD ORDERABLES F inal Result [facility] Department [place] [address] * (ABNORMAL) CBC with auto differential (01/01/2025 7:51 PM CDT) Pathologist [facility] WBC 18.07(H) 3.80 - 9.90 K/cumm Hgb 10.1(L) 13.0 - 17.5 g/dL [facility] Hct 30.5(L) 38.9 - 50.3 % [facility] Plt 183 150 - 400 K/cumm [facility] MPV 10.7 9.1 - 12.3 fL [facility] RBC 3.57(L) 4.30 - 5.80 M/cumm [facility] MCV 85.4 81.3 - 96.4 fL [facility] MCH 28.3 27.1 - 33.3 pg [facility] MCHC 33.1 32.3 - 35.7 g/dL [facility] RDW CV 17.0(H) 11.1 - 14.9 % [facility] RDW SD 51.5(H) 35.7 - 48.1 fL [facility] NRBC abs 0.00 0.00 - 0.01 K/cumm [facility] Blood 01/01/2025 7:51 PM CDT 01/01/2025 8:54 PM CDT Eliazar Gar MD LAB BLOOD ORDERABLES F inal Result Performing Organization Address [facility] Co de Phone Number [facility] Department [place] [address] * Type and screen (01/01/2025 7:51 PM CDT) Pathologist [facility] Lita, indirect Negative ABO Rh AB Negative [facility] Blood 01/01/2025 7:51 PM CDT 01/01/2025 8:38 PM CDT Narrative [facility] - 01/01/2025 9:35 PM CDT Has the patient had Daratumumab or Isatuximab in the past 6 months?->Unknown Eliazar Gar MD LAB BLOOD BANK TEST OR DERABLES Final Result Performing Organization Address [facility] Co de Phone Number [facility] Department [place] [address] * (ABNORMAL) Comprehensive metabolic panel (01/01/2025 7:51 PM CDT) Sodium 140 135 - 145 mmol/L Potassium, pl 4.3 3.3 - 4.9 mmol/L [facility] Chloride 108 97 - 110 mmol/L [facility] CO2 23 22 - 32 mmol/L [facility] Anion gap 9 2 - 15 mmol/L [facility] BUN 23 6 - 25 mg/dL [facility] Creatinine 0.94 0.80 - 1.30 mg/dL [facility] Glucose 166 70 - 199 mg/dL [facility] Comment: Interpretive Data Fasting glucose >/= 126 mg/dl is diagnostic for diabetes. Fasting is defined as no caloric intake for at least 8 hours. Fasting glucose between 100 mg/dl to 125 mg/dl is diagnostic of prediabetes. In a patient with classic symptoms of hyperglycemia or hyperglycemic crisis, a random glucose >/= 200 mg/dl is diagnostic for diabetes. In the absence of unequivocal hyperglycemia, results should be confirmed by repeat testing. The classification and Diagnosis of Diabetes Diabetes Care 2021; 46: S19-S40. Current interpretive data was last revised 2022. Calcium 8.3(L) 8.5 - 10.3 mg/dL [facility] Bilirubin, total 0.5 0.1 - 1.2 mg/dL [facility] Protein, pl 5.7(L) 6.5 - 8.5 g/dL [facility] Albumin 2.8(L) 3.5 - 5.0 g/dL [facility] Alk phos 78 40 - 130 Units/L [facility] ALT 19 7 - 55 Units/L [facility] AST 15 10 - 50 Units/L [facility] Blood 01/01/2025 7:51 PM CDT 01/01/2025 8:23 PM CDT Eliazar Gar MD LAB BLOOD ORDERABLES F inal Result [facility] [place] [address] * POCT glucose (01/01/2025 7:49 PM CDT) Glucose, POC 184 70 - 199 mg/dL Blood 01/01/2025 7:49 PM CDT 01/01/2025 7:49 PM CDT us Azra Davila MD LAB POCT ORDERABLES - DEVIC E Final [place] [address] * eGFR (12/18/2024 4:30 PM CDT) eGFR 84 >=60 mL/min/1. 73 m2 Comment: Interpretive Data [...] interpretive data was last reviewed 2021. Blood 12/18/2024 4:30 PM CDT 12/18/2024 5:32 PM CDT us Willard Gilbert MD LAB BLOOD ORDERABLES Final R esult [facility] [address] [place] [address] * (ABNORMAL) Differential, auto (12/18/2024 4:30 PM CDT) Neutrophil abs 18.17(H) 1.50 - 6.50 K/cumm Imm gran abs 0.25(H) 0.00 - 0.10 K/cumm [facility] Lymphocyte abs 0.78(L) 0.80 - 3.30 K/cumm [facility] Monocyte abs 0.83(H) 0.20 - 0.80 K/cumm [facility] Eosinophil abs 0.07 0.00 - 0.50 K/cumm [facility] Basophil abs 0.04 0.00 - 0.10 K/cumm [facility] Neutrophil pct 90.3 % [facility] Comment: Interpretive Data Percent cell count reference ranges are not reported, since discordance with absolute values may lead to misinterpretation of CBC data. Current Interpretive Data was last revised on 2017. Imm gran pct 1.2 % [facility] Comment: Interpretive Data Percent cell count reference ranges are not reported, since discordance with absolute values may lead to misinterpretation of CBC data. Current Interpretive Data was last revised on 2017. Lymphocyte pct 3.9 % [facility] Comment: Interpretive Data Percent cell count reference ranges are not reported, since discordance with absolute values may lead to misinterpretation of CBC data. Current Interpretive Data was last revised on 2017. Monocyte pct 4.1 % [facility] Comment: Interpretive Data Percent cell count reference ranges are not reported, since discordance with absolute values may lead to misinterpretation of CBC data. Current Interpretive Data was last revised on 2017. Eosinophil pct 0.3 % [facility] Comment: Interpretive Data Percent cell count reference ranges are not reported, since discordance with absolute values may lead to misinterpretation of CBC data. Current Interpretive Data was last revised on 2017. Basophil pct 0.2 % [facility] Comment: Interpretive Data Percent cell count reference ranges are not reported, since discordance with absolute values may lead to misinterpretation of CBC data. Current Interpretive Data was last revised on 2017. Blood 12/18/2024 4:30 PM CDT 12/18/2024 5:32 PM CDT Willardgabby Gilbert MD LAB BLOOD ORDERABLES Final R esult [facility] [id number] [employer] [place], [place] [phone] * (ABNORMAL) CBC with auto differential (12/18/2024 4:30 PM CDT) WBC 20.14(H) 3.80 - 9.90 K/cumm Hgb 10.4(L) 13.0 - 17.5 g/dL [facility] CH Hct 32.9(L) 38.9 - 50.3 % [facility] CH Plt 225 150 - 400 K/cumm [facility] MPV 10.1 9.1 - 12.3 fL [facility] RBC 3.63(L) 4.30 - 5.80 M/cumm [facility] CH MCV 90.6 81.3 - 96.4 fL [facility] MCH 28.7 27.1 - 33.3 pg [facility] MCHC 31.6(L) 32.3 - 35.7 g/dL [facility] CH RDW CV 15.0(H) 11.1 - 14.9 % [facility] CH RDW SD 49.7(H) 35.7 - 48.1 fL [facility] NRBC abs 0.10(H) 0.00 - 0.01 K/cumm [facility] CH Blood 12/18/2024 4:30 PM CDT 12/18/2024 5:32 PM CDT Willardgabby Gilbert MD LAB BLOOD ORDERABLES Final R esult [facility] [place] [address] [facility] [place] [address] * Vancomycin level trough (12/18/2024 4:30 PM CDT) Vancomycin trough 14.8 10.0 - 20.0 mcg/mL Blood 12/18/2024 4:30 PM CDT 12/18/2024 5:33 PM CDT us Willard Ashlyn Gilbert MD LAB [place]LOOD [place] [address] [address] Department [place] [address] * (ABNORMAL) Comprehensive metabolic panel (12/18/2024 4:30 PM CDT) Sodium 134(L) 135 - 145 mmol/L Potassium, pl 3.7 3.3 - 4.9 mmol/L [facility] CH Chloride 106 97 - 110 mmol/L [facility] CH CO2 19(L) 22 - 32 mmol/L [facility] CH Anion gap 9 2 - 15 mmol/L [facility] CH BUN 24 6 - 25 mg/dL [facility] CH Creatinine 0.91 0.80 - 1.30 mg/dL [facility] CH Glucose 231(H) 70 - 199 mg/dL [facility] CH Comment: Interpretive Data Fasting glucose >/= 126 mg/dl is diagnostic for diabetes. Fasting is defined as no caloric intake for at least 8 hours. Fasting glucose between 100 mg/dl to 125 mg/dl is diagnostic of prediabetes. In a patient with classic symptoms of hyperglycemia or hyperglycemic crisis, a random glucose >/= 200 mg/dl is diagnostic for diabetes. In the absence of unequivocal hyperglycemia, results should be confirmed by repeat testing. The classification and Diagnosis of Diabetes Diabetes Care 2021; 46: S19-S40. Current interpretive data was last revised 2022. Calcium 7.9(L) 8.5 - 10.3 mg/dL [facility] CH Bilirubin, total 0.4 0.1 - 1.2 mg/dL [facility] CH Protein, pl 4.9(L) 6.5 - 8.5 g/dL [facility] CH Albumin 2.1(L) 3.5 - 5.0 g/dL [facility] CH Alk phos 89 40 - 130 Units/L [facility] CH ALT 27 7 - 55 Units/L [facility] CH AST 19 10 - 50 Units/L [facility] CH Blood 12/18/2024 4:30 PM CDT 12/18/2024 5:32 PM CDT us Willard Gilbert MD LAB BLOOD ORDERABLES Final R esult Performing Organization Address [facility] Co de Phone Number ALL[facility] [phone] [facility] Department [place] [address] * Cardiology Document Scan (12/13/2024 4:38 PM CDT) Anatomical Region Laterality Modality Other Leonardo Molina MD [facility] PRO CEDURES Final Result * Cardiology Document Scan (12/13/2024 4:02 PM CDT) Anatomical Region Laterality Modality Other Leonardo Molina MD CV CARDIAC SERVICES PRO CEDURES Final Result * Cardiology Document Scan (12/11/2024 12:08 PM CDT) Anatomical Region Laterality Modality Other Leonardo Molina MD CV CARDIAC SERVICES PRO CEDURES Final Result * POCT glucose (11/27/2024 3:11 PM CDT) Glucose, POC 151 70 - 199 mg/dL Blood 11/27/2024 3:11 PM CDT 11/27/2024 3:11 PM CDT Reyna Morgan MD LAB POCT ORDERABLES - DEVICE Fin al Result Performing Organization Address [facility] Co de Phone Number ALL[facility] Department [place] [address] * Surgical pathology (11/27/2024 2:22 PM CDT) Tissue (Bladder, resection) 11/27/2024 2:22 PM [address] PATHOLOGY [facility] - 12/03/2024 10:20 AM CDT EPIC results best viewed via link to PDF [facility] Angelika Mercado [facility] Surgical [place] [address] Note to Patients: This report may contain [...] Gender: M : 1940 (Age: 84) Address: [address] [place] [id number] Hospital #: [id number] Taken:11/27/2024 Received:11/27/2024 Reported: 12/03/2024 Patient Type: [facility] Service: Surgery Location: [facility] Physician(s): Thalia Martinez M.D. James Riley McGinnis, M.D. 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 Labeled A1 to A2. Jar 0. rxr/11/28/2024 15:03 PA(s): Priya Guthrie, MS, MARISSA(ASCP)CM By this signature, I attest that the above diagnosis is based upon my personal examination of the slides(and/or other material). Addenda/Procedures The performance characteristics of some immunohistochemical stains, fluorescence in-situ hybridization tests and immunophenotyping by flow cytometry cited in this report (if any) were determined by the Surgical Pathology and Flow Cytometry Departments at [facility] as part of an ongoing quality assistant program and in compliance with federally mandated [...] Surgical Pathology and Flow Cytometry Departments of [facility]. It has not been cleared or approved by the U. S. Food and Drug Administration. IMAGES AND SCANNED DOCUMENTS, IF INCLUDED, ONLY VIEWABLE IN PDF VERSION OF REPORT Reyna Morgan MD LAB PATHOLOGY ORDERABLES Final R esult [facility] [address]rd Floor [place], [place] [phone] * POCT glucose (11/27/2024 1:03 PM CDT) Glucose, POC 155 70 - 199 mg/dL Blood 11/27/2024 1:03 PM CDT 11/27/2024 1:03 PM CDT Reyna Morgan MD LAB POCT ORDERABLES - DEVICE Fin al Result [facility] Department [place] [address] * Post-Discharge Dressing Care (11/18/2024 12:17 PM [...] CDT 10/24/2024 4:39 PM CD[address]ative PATHOLOGY [facility] - 10/29/2024 2:38 PM CDT EPIC results best viewed via link to PDF [facility] Angelika Mercado Laboratory [place] [address] Note to Patients: This report may contain [...] Gender: M : 1940 (Age: 84) Address: [address], [place] [address] Hospital #: [id number] Taken:10/24/2024 Received:10/24/2024 Reported: 10/29/2024 Patient Type: [facility] SPECIMEN Service: UNKNOWN Location: Physician(s): Reyna Morgan M.D. FINAL DIAGNOSIS A. Urine, bladder, void: - Rare atypical urothelial cell, suspicious for high grade urothelial carcinoma [facility]/10/28/2024 15:30 By this signature, I attest that the above diagnosis is based upon my personal examination of the slides(and/or other material indicated in the diagnosis). Golden Hansen DO Report Electronically Reviewed and Signed Out By Golden Hansen DO 10/29/2024 14:38:40 Azar Borrero [facility](ASCP) Gross Description A. Urine, bladder, void: [...] Surgical Pathology and Flow Cytometry Departments at [facility] as part of an ongoing quality assistant program and in compliance with federally mandated [...] Surgical Pathology and Flow Cytometry Departments of [facility]. It has not been cleared or approved by the U. S. Food and Drug Administration. Reyna Morgan MD LAB CYTOLOGY ORDERABLES Final Re sult PATHOLOGY [facility] 3rd Floor [place], [place] [phone] * Urine culture Urine, clean voided (10/24/2024 9:50 AM CDT) Report Final Report: No growth Urine, clean voided 10/24/2024 9:50 AM CDT 10/24/2024 3:08 PM CDT Narrative [facility] PEREZ - 10/25/2024 3:56 PM CDT Testing performed by [facility] Microbiology Laboratory ([phone]) us Reyna Morgan MD LAB MICROBIOLOGY - GENERAL ORDER KENDY Final Result [facility] Department [place] [address] * Post-Discharge Dressing Care (10/17/2024 1:31 PM CDT) Narrative Emerald Gee RN - 10/17/2024 1:31 PM CDT Wound care applied per orders Left groin ulcer EPC to the periwound thin layer Aquacel Extra cover with dry dressing Gluteal fold: please apply Aquacel Extra and cover with Dry dressing Follow up in one month us Yadira Lazcano NP NURSING WOUND CARE Final Re sult * (ABNORMAL) Lipid panel (01/25/2024 11:36 AM [...] on 2018. Triglycerides 134 <=149 mg/dL [facility] Comment: Interpretive Data Ages < or [...] revised on 2018. HDL 39(L) >=40 mg/dL [facility] Comment: Interpretive Data Ages < or [...] on 2018. LDL, calculated 56 <=129 mg/dL [facility] Comment: Interpretive Data Ages < or [...] revised on 2018. Non-HDL Cholesterol 83 mg/dL [facility] Comment: Interpretive Data Ages < or = [...] last revised on 2018. Chol/HDL ratio 3 [facility] Blood Venous blood specimen / Unknown 01/25/2024 11:36 AM CDT 01/25/2024 12:20 PM CDT us Melva Riggs MD LAB BLOOD ORDERABLES Final R esult [facility] [place] [address] from Last 3 Months or Most Recently Relevant to Health Maintenance Insurance UHC MEDICARE [facility]VANTAGE [facility] MED[facility] Address: [address] [address] [facility] MEDICARE [employer] MEDICARE Advance Directives For more information, please contact: [phone] * LIMITED - No CPR (Latest Code Status on File) Date Activated Date Inactivated Comments 01/03/2025 12:13 PM 01/10/2025 12:12 AM Question Answer Comments Provide aggressive medical m anagement before a full cardiopulmonary arrest occurs. Use antibiotics, IV Fluids, and medical treatment unless specifically selected below: No intubation Discussed with the following attending physician : Dr. 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
--- OUTSIDE RECORDS SUMMARY | 2025-01-12 15:40 | XMS_ITS ---
Author Organization [facility] [address] Address [address] [place] [address] Care Team Providers Care Mud Analysis Supervisor Name Role Phone Willard Gilbert MD Primary Care Provider [phone] Active Problems Problem Noted Date Diagnosed Date [...] - Continue heparin gtt - May require fpc AC beyond that which is needed acute DVTs - Adequate rate control at this time on metoprolol XL 25mg - dc tele 01/07 Assessment & Plan (01/08/2025 8:18 AM CDT): Noted on physical exam 01/04, and confirmed on tele. - Continue heparin gtt - May require fpc AC beyond that which is needed acute DVTs - Adequate rate control at this time on metoprolol XL 25mg - dc tele 01/07 Assessment & Plan (01/07/2025 6:25 PM CDT): Noted on physical exam 01/04, and confirmed on tele. - Continue heparin gtt - May require fpc AC beyond that which is needed acute DVTs - Adequate rate control at this time on metoprolol XL 25mg - dc tele 01/07 Assessment & Plan (01/06/2025 8:17 AM CDT): Noted on physical exam 01/04, and confirmed on tele. - Continue heparin gtt - May require fpc AC beyond that which is needed acute DVTs - Adequate rate control at this time Assessment & Plan (01/05/2025 3:33 PM CDT): Noted on physical exam 01/04, and confirmed on tele. 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 and oral prednisone tapers - follows with derm here at [facility], per 11/18/24 note, pt was [...] not appear active, and no other steroid-sparing fpc control agents due to hx of bladder [...] tears - He was last seen at [facility] wound care clinic on 11/18/24 - 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 and oral prednisone tapers - follows with derm here at [facility], per 11/18/24 note, pt was [...] not appear active, and no other steroid-sparing fpc control agents due to hx of bladder [...] tears - He was last seen at [facility] wound care clinic on 11/18/24 - 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 and oral prednisone tapers - follows with derm here at [facility], per 11/18/24 note, pt was [...] not appear active, and no other steroid-sparing fpc control agents due to hx of bladder [...] tears - He was last seen at [facility] wound care clinic on 11/18/24 - 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 and oral prednisone tapers - follows with derm here at [facility], per 11/18/24 note, pt was [...] not appear active, and no other steroid-sparing fpc control agents due to hx of bladder [...] tears - He was last seen at [facility] wound care clinic on 11/18/24 - 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 and oral prednisone tapers - follows with derm here at [facility], per 11/18/24 note, pt was [...] not appear active, and no other steroid-sparing fpc control agents due to hx of bladder [...] tears - He was last seen at [facility] wound care clinic on 11/18/24 - 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 and oral prednisone tapers - follows with derm here at [facility], per 11/18/24 note, pt was [...] not appear active, and no other steroid-sparing fpc control agents due to hx of bladder [...] tears - He was last seen at [facility] wound care clinic on 11/18/24 - 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 and oral prednisone tapers - follows with derm here at [facility], per 11/18/24 note, pt was [...] tears - He was last seen at [facility] wound care clinic on 11/18/24 - 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 and oral prednisone tapers - follows with derm here at [facility], per 11/18/24 note, pt was [...] & Plan (01/09/2025 8:41 AM CDT): - AIRCRAFT POWERTRAIN REPAIRER synthroid 75 mcg qd Assessment & Plan (01/08/2025 8:18 AM CDT): - AIRCRAFT POWERTRAIN REPAIRER synthroid 75 mcg qd Assessment & Plan (01/07/2025 8:01 AM CDT): - AIRCRAFT POWERTRAIN REPAIRER synthroid 75 mcg qd Assessment & Plan (01/06/2025 8:17 AM CDT): - AIRCRAFT POWERTRAIN REPAIRER synthroid 75 mcg qd Assessment & Plan (01/05/2025 7:17 AM CDT): - AIRCRAFT POWERTRAIN REPAIRER synthroid 75 mcg qd Assessment & Plan (01/04/2025 6:51 AM CDT): - AIRCRAFT POWERTRAIN REPAIRER synthroid 75 mcg qd Assessment & Plan (01/03/2025 8:14 AM CDT): - AIRCRAFT POWERTRAIN REPAIRER synthroid 75 mcg qd Assessment & Plan (01/02/2025 5:27 AM CDT): - AIRCRAFT POWERTRAIN REPAIRER synthroid 75 mcg qd UTI (urinary tract [...] palliative - may add donepezil back tomorrow 01/07 if can confirm dose with family Assessment & Plan (01/06/2025 5:43 PM CDT): - Pt A&Ox1 (only to self), according to , pt has been waxing+waning mental status for the past 1 week (baseline of a&ox2) Plan: - Delirium precautions in place - pain control as above per palliative - may add donepezil back tomorrow 01/07 if can confirm dose with family Assessment [...] tears - He was last seen at [facility] wound care clinic on 11/18/24 - 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 and oral prednisone tapers - follows with derm here at [facility], per 11/18/24 note, pt was [...] not appear active, and no other steroid-sparing fpc control agents due to hx of bladder [...] tears - He was last seen at [facility] wound care clinic on 11/18/24 - 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 and oral prednisone tapers - follows with derm here at [facility], per 11/18/24 note, pt was [...] not appear active, and no other steroid-sparing fpc control agents due to hx of bladder [...] tears - He was last seen at [facility] wound care clinic on 11/18/24 - 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 and oral prednisone tapers - follows with derm here at [facility], per 11/18/24 note, pt was [...] not appear active, and no other steroid-sparing fpc control agents due to hx of bladder [...] tears - He was last seen at [facility] wound care clinic on 11/18/24 - 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 and oral prednisone tapers - follows with derm here at [facility], per 11/18/24 note, pt was [...] not appear active, and no other steroid-sparing fpc control agents due to hx of bladder [...] tears - He was last seen at [facility] wound care clinic on 11/18/24 - 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 and oral prednisone tapers - follows with derm here at [facility], per 11/18/24 note, pt was [...] not appear active, and no other steroid-sparing fpc control agents due to hx of bladder [...] tears - He was last seen at [facility] wound care clinic on 11/18/24 - 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 and oral prednisone tapers - follows with derm here at [facility], per 11/18/24 note, pt was [...] not appear active, and no other steroid-sparing fpc control agents due to hx of bladder [...] tears - He was last seen at [facility] wound care clinic on 11/18/24 - 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 and oral prednisone tapers - follows with derm here at [facility], per 11/18/24 note, pt was [...] tears - He was last seen at [facility] wound care clinic on 11/18/24 - 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 and oral prednisone tapers - follows with derm here at [facility], per 11/18/24 note, pt was [...] extraperitoneal bladder rupture - on arrival to [facility], catheter placed by urology, repeat [...] extraperitoneal bladder rupture - on arrival to [facility], catheter placed by urology, repeat [...] extraperitoneal bladder rupture - on arrival to [facility], catheter placed by urology, repeat [...] extraperitoneal bladder rupture - on arrival to [facility], catheter placed by urology, repeat [...] extraperitoneal bladder rupture - on arrival to [facility], catheter placed by urology, repeat [...] extraperitoneal bladder rupture - on arrival to [facility], catheter placed by urology, repeat [...] extraperitoneal bladder rupture - on arrival to [facility], catheter placed by urology, repeat [...] IR urinoma drain placement - NPO at [place] 01/03 - trend Ucx, tailor abx as [...] extraperitoneal bladder rupture - on arrival to [facility], catheter placed by urology, repeat [...] extraperitoneal bladder rupture - on arrival to [facility], catheter placed by urology, repeat [...] extraperitoneal bladder rupture - on arrival to [facility], catheter placed by urology, repeat [...] extraperitoneal bladder rupture - on arrival to [facility], catheter placed by urology, repeat [...] extraperitoneal bladder rupture - on arrival to [facility], catheter placed by urology, repeat [...] extraperitoneal bladder rupture - on arrival to [facility], catheter placed by urology, repeat [...] extraperitoneal bladder rupture - on arrival to [facility], catheter placed by urology, repeat [...] extraperitoneal bladder rupture - on arrival to [facility], catheter placed by urology, repeat [...] IR urinoma drain placement - NPO at [place] 01/03 - trend Ucx, tailor abx as [...] extraperitoneal bladder rupture - on arrival to [facility], catheter placed by urology, repeat [...] extraperitoneal bladder rupture - on arrival to [facility], catheter placed by urology, repeat [...] extraperitoneal bladder rupture - on arrival to [facility], catheter placed by urology, repeat [...] extraperitoneal bladder rupture - on arrival to [facility], catheter placed by urology, repeat [...] extraperitoneal bladder rupture - on arrival to [facility], catheter placed by urology, repeat [...] extraperitoneal bladder rupture - on arrival to [facility], catheter placed by urology, repeat [...] extraperitoneal bladder rupture - on arrival to [facility], catheter placed by urology, repeat [...] extraperitoneal bladder rupture - on arrival to [facility], catheter placed by urology, repeat [...] IR urinoma drain placement - NPO at [place] 01/03 - trend Ucx, tailor abx as [...] extraperitoneal bladder rupture - on arrival to [facility], catheter placed by urology, repeat [...] again. Assessment & Plan (06/08/2024 4:15 PM CONTINUOUS CHURN BUTTERMAKER): This area was again cleaned under the [...] last A1c in 01/2024 was 7.6 - AIRCRAFT POWERTRAIN REPAIRER meds: Metformin 500mg bid, Jardiance 25mg qd Plan: - repeat A1c 9% - While inpatient, LDSSI and 3u lispro TIDAC Assessment & Plan (01/08/2025 10:36 PM CDT): - last A1c in 01/2024 was 7.6 - AIRCRAFT POWERTRAIN REPAIRER meds: Metformin 500mg bid, Jardiance 25mg qd Plan: - repeat A1c 9% - While inpatient, LDSSI and 3u lispro TIDAC Assessment & Plan (01/07/2025 8:01 AM CDT): - last A1c in 01/2024 was 7.6 - AIRCRAFT POWERTRAIN REPAIRER meds: Metformin 500mg bid, Jardiance 25mg qd Plan: - repeat A1c 9% - While inpatient, LDSSI and 3u lispro TIDAC Assessment & Plan (01/06/2025 5:43 PM CDT): - last A1c in 01/2024 was 7.6 - AIRCRAFT POWERTRAIN REPAIRER meds: Metformin 500mg bid, Jardiance 25mg qd Plan: - repeat A1c 9% - While inpatient, LDSSI and 3u lispro TIDAC Assessment & Plan (01/05/2025 7:17 AM CDT): - last A1c in 01/2024 was 7.6 - AIRCRAFT POWERTRAIN REPAIRER meds: Metformin 500mg bid, Jardiance 25mg qd Plan: - repeat A1c 9% - While inpatient, LDSSI Assessment & Plan (01/04/2025 6:51 AM CDT): - last A1c in 01/2024 was 7.6 - AIRCRAFT POWERTRAIN REPAIRER meds: Metformin 500mg bid, Jardiance 25mg qd Plan: - repeat A1c 9% - While inpatient, LDSSI Assessment & Plan (01/03/2025 8:14 AM CDT): - last A1c in 01/2024 was 7.6 - AIRCRAFT POWERTRAIN REPAIRER meds: Metformin 500mg bid, Jardiance 25mg qd Plan: - repeat A1c 9% - While inpatient, LDSSI Assessment & Plan (01/02/2025 5:27 AM CDT): - last A1c in 01/2024 was 7.6 - AIRCRAFT POWERTRAIN REPAIRER meds: Metformin 500mg bid, Jardiance 25mg qd Plan: - repeat A1c - While inpatient, LDSSI HTN (hypertension) 07/25/2023 Assessment & Plan (01/09/2025 8:41 AM CDT): - AIRCRAFT POWERTRAIN REPAIRER meds: Amlodipine 5mg every day, Toprol 50mg every day - Holding amlodipine due to hypotension - Reduced dose of metoprolol XL to 25mg/d Assessment & Plan (01/08/2025 8:18 AM CDT): - AIRCRAFT POWERTRAIN REPAIRER meds: Amlodipine 5mg every day, Toprol 50mg every day - Holding amlodipine due to hypotension - Reduced dose of metoprolol XL to 25mg/d Assessment & Plan (01/07/2025 8:01 AM CDT): - AIRCRAFT POWERTRAIN REPAIRER meds: Amlodipine 5mg every day, Toprol 50mg every day - Holding amlodipine due to hypotension - Reduced dose of metoprolol XL to 25mg/d Assessment & Plan (01/06/2025 8:17 AM CDT): - AIRCRAFT POWERTRAIN REPAIRER meds: Amlodipine 5mg every day, Toprol 50mg every day - Holding due to hypotension Assessment & Plan (01/05/2025 7:17 AM CDT): - AIRCRAFT POWERTRAIN REPAIRER meds: Amlodipine 5mg every day, Toprol 50mg every day - Holding due to hypotension Assessment & Plan (01/04/2025 6:51 AM CDT): - AIRCRAFT POWERTRAIN REPAIRER meds: Amlodipine 5mg every day, Toprol 50mg every day - Holding due to hypotension Assessment & Plan (01/03/2025 8:14 AM CDT): - AIRCRAFT POWERTRAIN REPAIRER meds: Amlodipine 5mg every day, Toprol 50mg every day - Holding due to hypotension Assessment & Plan (01/02/2025 5:27 AM CDT): - AIRCRAFT POWERTRAIN REPAIRER meds: Amlodipine 5mg every day, Toprol 50mg every day Hyperlipidemia 07/25/2023 CAD (coronary artery disease) 07/25/2023 Assessment & Plan (01/09/2025 8:41 AM CDT): - 2003 CABG (MASSEY to LAD, SVG to OM) - 2014 - NSTEMI s/p PCI x2 JOSE A in mid-RCA and POBA ostium of RPL - Continue AIRCRAFT POWERTRAIN REPAIRER meds: ASA 81mg, Crestor 40mg every day Assessment & Plan (01/08/2025 8:18 AM CDT): - 2003 CABG (MASSEY to LAD, SVG to OM) - 2014 - NSTEMI s/p PCI x2 JOSE A in mid-RCA and POBA ostium of RPL - Continue AIRCRAFT POWERTRAIN REPAIRER meds: ASA 81mg, Crestor 40mg every day Assessment & Plan (01/07/2025 8:01 AM CDT): - 2003 CABG (MASSEY to LAD, SVG to OM) - 2014 - NSTEMI s/p PCI x2 JOSE A in mid-RCA and POBA ostium of RPL - Continue AIRCRAFT POWERTRAIN REPAIRER meds: ASA 81mg, Crestor 40mg every day Assessment & Plan (01/06/2025 8:17 AM CDT): - 2003 CABG (MASSEY to LAD, SVG to OM) - 2014 - NSTEMI s/p PCI x2 JOSE A in mid-RCA and POBA ostium of RPL - Continue AIRCRAFT POWERTRAIN REPAIRER meds: ASA 81mg, Crestor 40mg every day Assessment & Plan (01/05/2025 7:17 AM CDT): - 2003 CABG (MASSEY to LAD, SVG to OM) - 2014 - NSTEMI s/p PCI x2 JOSE A in mid-RCA and POBA ostium of RPL - Continue AIRCRAFT POWERTRAIN REPAIRER meds: ASA 81mg, Crestor 40mg every day Assessment & Plan (01/04/2025 6:51 AM CDT): - 2003 CABG (MASSEY to LAD, SVG to OM) - 2014 - NSTEMI s/p PCI x2 JOSE A in mid-RCA and POBA ostium of RPL - Continue AIRCRAFT POWERTRAIN REPAIRER meds: ASA 81mg, Crestor 40mg every day Assessment & Plan (01/03/2025 4:29 PM CDT): - 2003 CABG (MASSEY to LAD, SVG to OM) - 2014 - NSTEMI s/p PCI x2 JOSE A in mid-RCA and POBA ostium of RPL - Continue AIRCRAFT POWERTRAIN REPAIRER meds: ASA 81mg, Crestor 40mg every day Assessment & Plan (01/02/2025 5:27 AM CDT): - 2003 CABG (MASSEY to LAD, SVG to OM) - 2014 - NSTEMI s/p PCI x2 JOSE A in mid-RCA and POBA ostium of RPL - AIRCRAFT POWERTRAIN REPAIRER meds: ASA, Crestor 40mg every day MIRYAM [...] 05/30/2023 Assessment & Plan (07/20/2023 1:29 PM CONTINUOUS CHURN BUTTERMAKER): 83 y.o. male with PMH including: CAD, [...] left. Assessment & Plan (06/08/2024 4:14 PM CONTINUOUS CHURN BUTTERMAKER): This is essentially unchanged. Assessment & Plan [...] months. 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 Appears to remain stable. 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 I think this continues to need surveillance and I suggested a follow-up with ear cleaning under the microscope in about 6 months. He understands and would like to go ahead and pursue that also. Assessment & Plan (05/31/2022 8:56 AM CONTINUOUS CHURN BUTTERMAKER): Still has significant retraction of his left [...] months. Assessment & Plan (09/17/2022 4:59 PM CONTINUOUS CHURN BUTTERMAKER): Cerumen was removed bilaterally without much difficulty. He tolerated that well. I recommended a follow-up in about 6 months. Assessment & Plan (05/31/2022 8:55 AM CONTINUOUS CHURN BUTTERMAKER): Lot of wax removed on the left side of the microscope. He tolerated this well. I recommended continued follow-up for cleaning. Will see him in about 3 months. Pilonidal cyst 05/09/2022 Overview (05/09/2022): Added automatically from request for surgery [id number] Current Treatment and Therapy Plans No current plan information found. Past Treatment and Therapy Plans No past plan information found. Lifetime Dose Tracking * Chemical Lifetime Dose Automatic Entry Manual Entr y Fluoro Time 0.25 minutes 0.25 minutes 0 minutes Air kerma at the reference point (Ka,r) 4.32 mGy 4 .32 mGy 0 mGy DLP 3,143 mGycm 3,143 mGycm 0 mGycm
--- OUTSIDE RECORDS SUMMARY | 2025-01-12 15:41 | XMS_ITS | Encounter Summary ---
Author Organization [facility] Address [address] [place] [address] Phone Care Team Providers Care Disease Management Nurse Name Role Phone Willard Gilbert MD Primary Care Provider [phone] Reason for Visit * Reason Onset Date Comments DVT MEDICATION 07/26/2023 Encounter Details Date Type Department Care Team (Late st Contact Info) Description 07/26/2023 Telephone [facility] Surgery [address] [place] [address] [place] [address] Ryanne Johnson RN DVT MEDICATION [...] on file 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
--- OUTSIDE RECORDS SUMMARY | 2025-01-12 15:41 | XMS_ITS | Encounter Summary ---
Author Organization 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
--- OUTSIDE RECORDS SUMMARY | 2025-01-12 15:41 | XMS_ITS | Continuity of Care Document ---
Author Organization [facility] [place] [address] [place] [address] [address] [place] [address] Phone Care Team Providers Care Turbine Assembler Name Role Phone Coronado OD, Manoj Unavailable Unavailable Procedures Procedure Date Contact Lens Check Contact Lens, Gas Permeable, Spherical J [facility] Treatment Refraction No Charge Contact Lens Check CL Replacement - Vistakon Disp W/BW Soft [facility] Exam & Treatment Refraction No Charge Contact Lens Check CL Replacement - Other Lens [facility] No Charge Contact Lens Check No Charge Contact Lens Check Eye Exam & Treatment Refraction Advance Directives Directive Yes / No Effective Date File Name No Information Encounters Encounter Description Practice Location Reason(s) For Visit Diagnoses Date Provider Providers Copied on Encounter [facility], [address] [place] [address] [address], [place], [place], [id number], [place] tel:[phone] [facility] No Information 7-201 0 Coronado OD Manoj. [address] [facility] [place] , [address], [place], [address], [place]. tel:[phone] [facility], [id number] [place] [address] [address], [place], [place], [id number], tel:[phone] [facility] [place] No Information Dec-2 3-200 9 Coronado OD Manoj. [address] , [address], [place], [place], [facility], [place]. tel:[phone] [facility], [address], [place], [place], [id number], tel:[phone] [facility] No Information Oct-0 9-200 8 Coronado OD Manoj. [address] , [address], [place], [facility], [place]. tel:[phone] [facility], [id number] [place] [address] [address], [place], [place], [id number], [place] tel:[phone] [facility] No Information Sep-2 6-200 8 Coronado OD Manoj. [address] , [address], [place], [facility], [place]. tel:[phone] [facility], [id number] [place] [address] [address], [place], [place], [id number], [place] tel:[phone] [facility] No Information Sep-2 5-200 7 Coronado OD Manoj. [address] , [address], [place], [facility], [place]. tel:[phone] [facility], [id number] [place] [address] [address], [place], [place], [id number], [place] tel:[phone] [facility] No Information Sep-1 3-200 7 Coronado OD Manoj. [address], [place], [facility], [place]. tel:[phone] [facility], [id number] [place] [address] [address], [place], [place], [id number], [place] tel:[phone] [facility] No Information Sep-0 6-200 7 Coronado OD Manoj. [address] , [address], [place], [facility], [place]. tel:[phone] [facility], [address], [place], [place], [id number], [place] tel:[phone] [facility] No Information 3-200 7 Coronado OD Manoj. [address] , [address], [place], [address], [place]. tel:[phone] Family History Family Member Type Diagnosis Age [...]
--- OUTSIDE RECORDS SUMMARY | 2025-01-12 15:41 | XMS_ITS | Encounter Summary ---
Author Organization [facility] Address [address] [place] [address] Phone Care Team Providers Care Allergist Immunologist Name Role Phone Willard Gilbert MD Primary Care Provider [phone] Reason for Visit * Reason Onset Date Comments Spoke With Home Health Provider 08/04/2023 Encounter Details Date Type Department Care Team (Late st Contact Info) Description 08/04/2023 Telephone [facility] [address] [facility] Advanced Medicine 6th [place] [address] [place] [address] Ryanne Johnson, LUCIE Spoke With [...] on file Legal Sex Male 8:51 PM 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
--- OUTSIDE RECORDS SUMMARY | 2025-01-12 15:41 | XMS_ITS | Referral Summary ---
Author Organization [facility] [address] [facility] [address] [place] [address] Care Team Providers Care Typewriter Assembler Name Role Phone Willard Gilbert MD Primary Care Provider Encounters Date Type Department Care Team Description 01/10/2025 SHOP/CHAP Initial Eligibility Review [facility] OP CASE MANAGEMENT 1 [place] [address] Azra Sahu RN 01/01/2025 7:26 PM CDT - 01/09/2025 8:11 PM CDT [facility] 1 [place] [address] Azra Davila MD Freilich, Michelle Amanda, MD Berg, Sarah Elizabeth, MD Cruz Bravo, Paulina, MD Abdominal pain (Primary Dx); Perforation of bladder during operative procedure Discharge Disposition: Discharge to home or self care 01/03/2025 11:40 AM CDT Ancillary Procedure [facility] IP 1 [facility] [address] [place] [address] 12/30/2024 Telephone [facility] Otolaryngology [address] [place] [address] Soraida Buchanan LPN Cancel CT temporal bones 12/24/[address] [facility] Cardiology [address] [place] [address] Leonardo Molina MD 12/19/[address] [facility] Medical [facility] Cardiology [address] [facility] [address] [place] [address] Lizbeth Ward NP 12/18/2024 5:31 PM CDT - 12/18/2024 11:59 PM CDT Hospital Encounter [facility] [address] [place] [address] Discharge Disposition: Discharge to home or self care 12/16/[address] [facility] Medical [facility] Cardiology [address] [facility] [address] [place] [address] Leonardo Molina MD 12/13/2024 Telephone [facility] 3rd Floor [address] [place] [phone] Prisca Arcos MA Scheduling Appointments 12/12/2024 Orders Only [facility] Cardiology [address] [place] [address] [address] [place] [address] Leonardo Molina MD 12/09/2024 Telephone [facility] ([facility]) - [facility] Urology [facility]1 [facility] 11th [place] [address] [place] [address] Reyna Morgan MD 12/01/2024 Telephone Urology Queenie Wall MD 11/27/2024 2:30 PM CDT - 11/27/2024 4:35 PM CDT Surgery [facility] Operating Room 1 [place] [address] Reyna Morgan MD CYSTOSCOPY - TRANSURETHRAL RESECTION BLADDER TUMOR 11/27/2024 1:43 PM CDT Anesthesia Event [facility] Operating Room 1 [place] [address] Blayne Edgar MD Lentz, William Thomas, NP 11/27/2024 11:39 AM CDT - 11/27/2024 5:17 PM CDT Hospital Encounter [facility] Operating Room 1 [place] [address] Reyna Morgan MD Gross hematuria Discharge Disposition: Discharge to home or self care 11/18/2024 11:15 AM CDT Office Visit [facility] [address] [place] [address] [address] [place] [phone] Rachel Domínguez MD PhD Excoriation (Primary Dx); Pyoderma gangrenosum (HCC) 11/18/2024 1:30 PM CDT Office Visit [facility] [address] [place] [address] 3rd Floor [address] [place] [address] Non-healing surgical wound, sequela (Primary Dx); 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); Skin ulcer of left groin with fat layer exposed (HCC); Pain associated with wound; At risk for infection associated with wound; Delayed wound healing; Open wound of left upper extremity, initial encounter 10/29/2024 1:00 PM CDT Office Visit [facility] Otolaryngology [address] [place] [phone] Gabino Chavez MD Dysfunction of both eustachian tubes (Primary Dx); Cholesteatoma of attic of left ear 10/25/2024 Telephone [facility] Otolaryngology [address] [place] [phone] Soraida Buchanan LPN Refill ear drops 10/24/2024 9:59 AM CDT - 10/24/2024 11:59 PM CDT Hospital Encounter [facility] [address] [address] Gross hematuria Discharge Disposition: Discharge to home or self care 10/24/2024 2:48 PM CDT - 10/24/2024 11:59 PM CDT Hospital Encounter [facility] [address] [place] [address] Gross hematuria Discharge Disposition: Discharge to home or self care 10/24/2024 Orders Only [facility] [address] [place] [address] [address] [place] [phone] Catie Hale CMA Pyoderma gangrenosum (HCC) (Primary Dx) 10/24/2024 9:20 AM CDT Office Visit [facility] ([facility]) - [facility] Urology [address] 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) 10/14/2024 12:45 PM CDT Office Visit [facility] [address] [facility] [address] [place] [phone] Rachel Domínguez MD PhD Pyoderma gangrenosum (HCC) [...] 1 tablet (75 mcg total) by mouth group social worker before breakfast 2022 Active metFORMIN XR (GLUCOPHAGE [...] mg total) by mouth daily 30 tablet 01/10 Active predniSONE (DELTASONE) 10 mg tablet Take 1 tablet (10 mg) by mouth daily for 2 days 2 tablet 01/12 Active calcium carbonate-vitam in D3 1,250mg (500mg elemental) - 5 mcg (200 units) per tablet Take 1 tablet by mouth daily 30 tablet 01/10 Active insulin lispro (HumaLOG, ADMELOG) 100 [...] a day for 9 doses 9 tablet 01/[address] (PROTONIX) 40 mg EC [...] - Continue heparin gtt - May require shelter AC beyond that which is needed acute DVTs - Adequate rate control at this time on metoprolol XL 25mg - dc tele 01/07 Assessment & Plan (01/08/2025 8:18 AM CDT): Noted on physical exam 01/04, and confirmed on tele. - Continue heparin gtt - May require shelter AC beyond that which is needed acute DVTs - Adequate rate control at this time on metoprolol XL 25mg - dc tele 01/07 Assessment & Plan (01/07/2025 6:25 PM CDT): Noted on physical exam 01/04, and confirmed on tele. - Continue heparin gtt - May require shelter AC beyond that which is needed acute DVTs - Adequate rate control at this time on metoprolol XL 25mg - dc tele 01/07 Assessment & Plan (01/06/2025 8:17 AM CDT): Noted on physical exam 01/04, and confirmed on tele. - Continue heparin gtt - May require shelter AC beyond that which is needed acute DVTs - Adequate rate control at this time Assessment & Plan (01/05/2025 3:33 PM CDT): Noted on physical exam 01/04, and confirmed on tele. - Continue heparin gtt - May require shelter AC beyond that which is needed acute [...] tears - He was last seen at 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, per 11/18/24 note, pt was started on [...] not appear active, and no other steroid-sparing shelter control agents due to hx of bladder [...] tears - He was last seen at 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, per 11/18/24 note, pt was started on [...] not appear active, and no other steroid-sparing shelter control agents due to hx of bladder [...] tears - He was last seen at 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, per 11/18/24 note, pt was started on [...] not appear active, and no other steroid-sparing shelter control agents due to hx of bladder [...] tears - He was last seen at 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, per 11/18/24 note, pt was started on [...] not appear active, and no other steroid-sparing shelter control agents due to hx of bladder [...] tears - He was last seen at 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, per 11/18/24 note, pt was started on [...] not appear active, and no other steroid-sparing shelter control agents due to hx of bladder [...] tears - He was last seen at 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, per 11/18/24 note, pt was started on [...] not appear active, and no other steroid-sparing shelter control agents due to hx of bladder [...] tears - He was last seen at 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, per 11/18/24 note, pt was started on [...] tears - He was last seen at 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, per 11/18/24 note, pt was started on [...] & Plan (01/09/2025 8:41 AM CDT): - TEST MANAGER synthroid 75 mcg qd Assessment & Plan (01/08/2025 8:18 AM CDT): - TEST MANAGER synthroid 75 mcg qd Assessment & Plan (01/07/2025 8:01 AM CDT): - TEST MANAGER synthroid 75 mcg qd Assessment & Plan (01/06/2025 8:17 AM CDT): - TEST MANAGER synthroid 75 mcg qd Assessment & Plan (01/05/2025 7:17 AM CDT): - TEST MANAGER synthroid 75 mcg qd Assessment & Plan (01/04/2025 6:51 AM CDT): - TEST MANAGER synthroid 75 mcg qd Assessment & Plan (01/03/2025 8:14 AM CDT): - TEST MANAGER synthroid 75 mcg qd Assessment & Plan (01/02/2025 5:27 AM CDT): - TEST MANAGER synthroid 75 mcg qd UTI (urinary tract [...] tears - He was last seen at 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, per 11/18/24 note, pt was started on [...] not appear active, and no other steroid-sparing shelter control agents due to hx of bladder [...] tears - He was last seen at 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, per 11/18/24 note, pt was started on [...] not appear active, and no other steroid-sparing shelter control agents due to hx of bladder [...] tears - He was last seen at 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, per 11/18/24 note, pt was started on [...] not appear active, and no other steroid-sparing shelter control agents due to hx of bladder [...] tears - He was last seen at 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, per 11/18/24 note, pt was started on [...] not appear active, and no other steroid-sparing shelter control agents due to hx of bladder [...] tears - He was last seen at 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, per 11/18/24 note, pt was started on [...] not appear active, and no other steroid-sparing shelter control agents due to hx of bladder [...] tears - He was last seen at 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, per 11/18/24 note, pt was started on [...] not appear active, and no other steroid-sparing shelter control agents due to hx of bladder [...] tears - He was last seen at 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, per 11/18/24 note, pt was started on [...] tears - He was last seen at 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, per 11/18/24 note, pt was started on [...] extraperitoneal bladder rupture - on arrival to [facility], catheter placed by urology, repeat CT cystogram: [...] extraperitoneal bladder rupture - on arrival to [facility], catheter placed by urology, repeat CT cystogram: [...] extraperitoneal bladder rupture - on arrival to [facility], catheter placed by urology, repeat CT cystogram: [...] extraperitoneal bladder rupture - on arrival to [facility], catheter placed by urology, repeat CT cystogram: [...] extraperitoneal bladder rupture - on arrival to [facility], catheter placed by urology, repeat CT cystogram: [...] extraperitoneal bladder rupture - on arrival to [facility], catheter placed by urology, repeat CT cystogram: [...] extraperitoneal bladder rupture - on arrival to [facility], catheter placed by urology, repeat CT cystogram: [...] IR urinoma drain placement - [place]PO at [place] 01/03 - trend Ucx, tailor abx as [...] extraperitoneal bladder rupture - on arrival to [facility], catheter placed by urology, repeat CT cystogram: [...] extraperitoneal bladder rupture - on arrival to [facility], catheter placed by urology, repeat CT cystogram: [...] extraperitoneal bladder rupture - on arrival to [facility], catheter placed by urology, repeat CT cystogram: [...] extraperitoneal bladder rupture - on arrival to [facility], catheter placed by urology, repeat CT cystogram: [...] extraperitoneal bladder rupture - on arrival to [facility], catheter placed by urology, repeat CT cystogram: [...] extraperitoneal bladder rupture - on arrival to [facility], catheter placed by urology, repeat CT cystogram: [...] extraperitoneal bladder rupture - on arrival to [facility], catheter placed by urology, repeat CT cystogram: [...] extraperitoneal bladder rupture - on arrival to [facility], catheter placed by urology, repeat CT cystogram: [...] IR urinoma drain placement - NPO at [place] 01/03 - trend Ucx, tailor abx as [...] extraperitoneal bladder rupture - on arrival to [facility], catheter placed by urology, repeat CT cystogram: [...] extraperitoneal bladder rupture - on arrival to [facility], catheter placed by urology, repeat CT cystogram: [...] extraperitoneal bladder rupture - on arrival to [facility], catheter placed by urology, repeat CT cystogram: [...] extraperitoneal bladder rupture - on arrival to [facility], catheter placed by urology, repeat CT cystogram: [...] extraperitoneal bladder rupture - on arrival to [facility], catheter placed by urology, repeat CT cystogram: [...] extraperitoneal bladder rupture - on arrival to [facility], catheter placed by urology, repeat CT cystogram: [...] extraperitoneal bladder rupture - on arrival to [facility], catheter placed by urology, repeat CT cystogram: [...] extraperitoneal bladder rupture - on arrival to [facility], catheter placed by urology, repeat CT cystogram: [...] extraperitoneal bladder rupture - on arrival to [facility], catheter placed by urology, repeat CT cystogram: [...] again. Assessment & Plan (06/08/2024 4:15 PM MANAGER MARKET): This area was again cleaned under the [...] last A1c in 01/2024 was 7.6 - TEST MANAGER meds: Metformin 500mg bid, Jardiance 25mg qd Plan: - repeat A1c 9% - While inpatient, LDSSI and 3u lispro TIDAC Assessment & Plan (01/08/2025 10:36 PM CDT): - last A1c in 01/2024 was 7.6 - TEST MANAGER meds: Metformin 500mg bid, Jardiance 25mg qd Plan: - repeat A1c 9% - While inpatient, LDSSI and 3u lispro TIDAC Assessment & Plan (01/07/2025 8:01 AM CDT): - last A1c in 01/2024 was 7.6 - TEST MANAGER meds: Metformin 500mg bid, Jardiance 25mg qd Plan: - repeat A1c 9% - While inpatient, LDSSI and 3u lispro TIDAC Assessment & Plan (01/06/2025 5:43 PM CDT): - last A1c in 01/2024 was 7.6 - TEST MANAGER meds: Metformin 500mg bid, Jardiance 25mg qd Plan: - repeat A1c 9% - While inpatient, LDSSI and 3u lispro TIDAC Assessment & Plan (01/05/2025 7:17 AM CDT): - last A1c in 01/2024 was 7.6 - TEST MANAGER meds: Metformin 500mg bid, Jardiance 25mg qd Plan: - repeat A1c 9% - While inpatient, LDSSI Assessment & Plan (01/04/2025 6:51 AM CDT): - last A1c in 01/2024 was 7.6 - TEST MANAGER meds: Metformin 500mg bid, Jardiance 25mg qd Plan: - repeat A1c 9% - While inpatient, LDSSI Assessment & Plan (01/03/2025 8:14 AM CDT): - last A1c in 01/2024 was 7.6 - TEST MANAGER meds: Metformin 500mg bid, Jardiance 25mg qd Plan: - repeat A1c 9% - While inpatient, LDSSI Assessment & Plan (01/02/2025 5:27 AM CDT): - last A1c in 01/2024 was 7.6 - TEST MANAGER meds: Metformin 500mg bid, Jardiance 25mg qd Plan: - repeat A1c - While inpatient, LDSSI HTN (hypertension) 07/25/2023 Assessment & Plan (01/09/2025 8:41 AM CDT): - TEST MANAGER meds: Amlodipine 5mg every day, Toprol 50mg every day - Holding amlodipine due to hypotension - Reduced dose of metoprolol XL to 25mg/d Assessment & Plan (01/08/2025 8:18 AM CDT): - TEST MANAGER meds: Amlodipine 5mg every day, Toprol 50mg every day - Holding amlodipine due to hypotension - Reduced dose of metoprolol XL to 25mg/d Assessment & Plan (01/07/2025 8:01 AM CDT): - TEST MANAGER meds: Amlodipine 5mg every day, Toprol 50mg every day - Holding amlodipine due to hypotension - Reduced dose of metoprolol XL to 25mg/d Assessment & Plan (01/06/2025 8:17 AM CDT): - TEST MANAGER meds: Amlodipine 5mg every day, Toprol 50mg every day - Holding due to hypotension Assessment & Plan (01/05/2025 7:17 AM CDT): - TEST MANAGER meds: Amlodipine 5mg every day, Toprol 50mg every day - Holding due to hypotension Assessment & Plan (01/04/2025 6:51 AM CDT): - TEST MANAGER meds: Amlodipine 5mg every day, Toprol 50mg every day - Holding due to hypotension Assessment & Plan (01/03/2025 8:14 AM CDT): - TEST MANAGER meds: Amlodipine 5mg every day, Toprol 50mg every day - Holding due to hypotension Assessment & Plan (01/02/2025 5:27 AM CDT): - TEST MANAGER meds: Amlodipine 5mg every day, Toprol 50mg every day Hyperlipidemia 07/25/2023 CAD (coronary artery disease) 07/25/2023 Assessment & Plan (01/09/2025 8:41 AM CDT): - 2003 CABG (MASSEY to LAD, SVG to OM) - 2014 - NSTEMI s/p PCI x2 JOSE A in mid-RCA and POBA ostium of RPL - Continue TEST MANAGER meds: ASA 81mg, Crestor 40mg every day Assessment & Plan (01/08/2025 8:18 AM CDT): - 2003 CABG (MASSEY to LAD, SVG to OM) - 2014 - NSTEMI s/p PCI x2 JOSE A in mid-RCA and POBA ostium of RPL - Continue TEST MANAGER meds: ASA 81mg, Crestor 40mg every day Assessment & Plan (01/07/2025 8:01 AM CDT): - 2003 CABG (MASSEY to LAD, SVG to OM) - 2014 - NSTEMI s/p PCI x2 JOSE A in mid-RCA and POBA ostium of RPL - Continue TEST MANAGER meds: ASA 81mg, Crestor 40mg every day Assessment & Plan (01/06/2025 8:17 AM CDT): - 2003 CABG (MASSEY to LAD, SVG to OM) - 2014 - NSTEMI s/p PCI x2 JOSE A in mid-RCA and POBA ostium of RPL - Continue TEST MANAGER meds: ASA 81mg, Crestor 40mg every day Assessment & Plan (01/05/2025 7:17 AM CDT): - 2003 CABG (MASSEY to LAD, SVG to OM) - 2014 - NSTEMI s/p PCI x2 JOSE A in mid-RCA and POBA ostium of RPL - Continue TEST MANAGER meds: ASA 81mg, Crestor 40mg every day Assessment & Plan (01/04/2025 6:51 AM CDT): - 2003 CABG (MASSEY to LAD, SVG to OM) - 2014 - NSTEMI s/p PCI x2 JOSE A in mid-RCA and POBA ostium of RPL - Continue TEST MANAGER meds: ASA 81mg, Crestor 40mg every day Assessment & Plan (01/03/2025 4:29 PM CDT): - 2003 CABG (MASSEY to LAD, SVG to OM) - 2014 - NSTEMI s/p PCI x2 JOSE A in mid-RCA and POBA ostium of RPL - Continue TEST MANAGER meds: ASA 81mg, Crestor 40mg every day Assessment & Plan (01/02/2025 5:27 AM CDT): - 2003 CABG (MASSEY to LAD, SVG to OM) - 2014 - NSTEMI s/p PCI x2 JOSE A in mid-RCA and POBA ostium of RPL - TEST MANAGER meds: ASA, Crestor 40mg every day MIRYAM [...] 05/30/2023 Assessment & Plan (07/20/2023 1:29 PM MANAGER MARKET): 83 y.o. male with PMH including: CAD, [...] left. Assessment & Plan (06/08/2024 4:14 PM MANAGER MARKET): This is essentially unchanged. Assessment & Plan [...] months. 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 Appears to remain stable. 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 I think this continues to need surveillance and I suggested a follow-up with ear cleaning under the microscope in about 6 months. He understands and would like to go ahead and pursue that also. Assessment & Plan (05/31/2022 8:56 AM MANAGER MARKET): Still has significant retraction of his left [...] months. Assessment & Plan (09/17/2022 4:59 PM MANAGER MARKET): Cerumen was removed bilaterally without much difficulty. He tolerated that well. I recommended a follow-up in about 6 months. Assessment & Plan (05/31/2022 8:55 AM MANAGER MARKET): Lot of wax removed on the left side of the microscope. He tolerated this well. I recommended continued follow-up for cleaning. Will see him in about 3 months. Pilonidal cyst 05/09/2022 Overview (05/09/2022): Added automatically from request for surgery [id number] Immunizations Immunization Administration Dates Next Due Influenza, Quadrivalent, Hig h Dose, Preservative Free, Intrr 04/06/2021,04/01/2020 Influenza, Trivalent, Adjuva nted, Intramuscular 04/24/2018,04/23/2018,04/23/2017 Influenza, Trivalent, High D ose, Split, Preservative Free, Intramuscular 04/08/2019 Pneumococcal Conjugate PCV 13 04/24/2018, 018 Pneumococcal Polysaccharide PPV23 04/06/2021 Tdap 05/06/2013 Social History Tobacco Use Types Packs/Day Years Used Date Smoking Tobacco: Former Cigarettes 2 20 1 - 1981 Smokeless Tobacco: Former Chew Quit: [...] money to buy more. Never true 11/19/19 Within the past 12 months, t he [...] on file Legal Sex Male 8:51 PM [employer] Gender Identity Not on file Sexual Orientation [...] 01/03/2025 5:13 PM CDT Plan of Treatment Not on file Medical Devices Implanted Type Area Electric Motor Tester Device Identifier Shelf Expiration Date Model / Serial / Lot Stent Stent Heart Description:X3 [employer] Universa 6fr 28cm Firm Positioner Monofilament Tether Stent [id number] - Sn/A - [id number] Implanted:Qty: 1 on 05/16/2024 by Reyna Morgan MD at [facility] Stent Left: Ureter [employer] 03/08/2027 [id number] / N/A / [id number] Procedures Procedure Name Priority Date/Time Associated Diagnosis [...] DEVICE Routine 01/02/2025 1 2:47 AM CDT PA CRITICAL CARE ILL/INJURED PATIENT INIT 30-74 MIN [...] BERENICE CE Final Result Performing Organization Address City/[facility] Co de Phone Number [facility] [employer] [place] [address] * (ABNORMAL) POCT glucose (01/09/2025 11:19 AM CDT) Glucose, POC 269(H) 70 - 199 mg/dL Blood 01/09/2025 11:1 9 AM CDT 01/09/2025 11:19 AM CDT Rebecca Garcia MD LAB POCT ORDERABLES - BERENICE CE Final Result Performing Organization Address [facility] Co de Phone Number [facility] Department of [employer] [place] [address] * POCT glucose (01/09/2025 7:31 AM CDT) Glucose, POC 170 70 - 199 mg/dL Blood 01/09/2025 7:31 AM CDT 01/09/2025 7:31 AM CDT Rebecca Garcia MD LAB POCT ORDERABLES - BERENICE CE Final Result Performing Organization Address [facility] Co de Phone Number [facility] [place] [address] * eGFR (01/08/2025 11:40 PM CDT) eGFR [...] Garcia MD LAB BLOOD ORDERABLES Final Result [facility] Department [place] [address] * (ABNORMAL) Differential, auto (01/08/2025 11:40 PM CDT) Pathologist [facility] Neutrophil abs 8.91(H) 1.50 - 6.50 K/cumm Imm gran abs 0.19(H) 0.00 - 0.10 K/cumm [facility] Lymphocyte abs 0.80 0.80 - 3.30 K/cumm [facility] Monocyte abs 0.44 0.20 - 0.80 K/cumm [facility] Eosinophil abs 0.04 0.00 - 0.50 K/cumm [facility] Basophil abs 0.01 0.00 - 0.10 K/cumm [facility] Neutrophil pct 85.8 % [facility] Comment: Interpretive Data Percent cell count reference ranges are not reported, since discordance with absolute values may lead to misinterpretation of CBC data. Current Interpretive Data was last revised on 2017. Imm gran pct 1.8 % [facility] Comment: Interpretive Data Percent cell count reference ranges are not reported, since discordance with absolute values may lead to misinterpretation of CBC data. Current Interpretive Data was last revised on 2017. Lymphocyte pct 7.7 % [facility] Comment: Interpretive Data Percent cell count reference ranges are not reported, since discordance with absolute values may lead to misinterpretation of CBC data. Current Interpretive Data was last revised on 2017. Monocyte pct 4.2 % [facility] Comment: Interpretive Data Percent cell count reference ranges are not reported, since discordance with absolute values may lead to misinterpretation of CBC data. Current Interpretive Data was last revised on 2017. Eosinophil pct 0.4 % [facility] Comment: Interpretive Data Percent cell count reference ranges are not reported, since discordance with absolute values may lead to misinterpretation of CBC data. Current Interpretive Data was last revised on 2017. Basophil pct 0.1 % [facility] Comment: Interpretive Data Percent cell count reference ranges are not reported, since discordance with absolute values may lead to misinterpretation of CBC data. Current Interpretive Data was last revised on 2017. Blood 01/08/2025 11:4 0 PM CDT 01/09/2025 12:21 AM CDT us Rebecca Garcia MD LAB BLOOD ORDERABLES Final Result [facility] Department [place] [address] * (ABNORMAL) CBC with auto differential (01/08/2025 11:40 PM CDT) WBC 10.39(H) 3.80 - 9.90 K/cumm Hgb 8.9(L) 13.0 - 17.5 g/dL [facility] Hct 27.4(L) 38.9 - 50.3 % [facility] Plt 151 150 - 400 K/cumm [facility] MPV 10.3 9.1 - 12.3 fL [facility] RBC 3.14(L) 4.30 - 5.80 M/cumm [facility] MCV 87.3 81.3 - 96.4 fL [facility] MCH 28.3 27.1 - 33.3 pg [facility] MCHC 32.5 32.3 - 35.7 g/dL [facility] RDW CV 18.6(H) 11.1 - 14.9 % [facility] RDW SD 57.3(H) 35.7 - 48.1 fL [facility] NRBC abs 0.00 0.00 - 0.01 K/cumm [facility] Blood 01/08/2025 11:4 0 PM CDT 01/09/2025 12:21 AM CDT Rebecca Garcia MD LAB BLOOD ORDERABLES Final Result Performing Organization Address City/[facility] Co de Phone Number [facility] Department of [employer] [place] [address] * aPTT (01/08/2025 11:40 PM CDT) aPTT 30 28 - 38 sec Comment: Interpretive Data Heparin therapeutic range: 66.0 - 100.0 seconds. Range based on correlation with therapeutic heparin activity range of 0.3 - 0.7 Units/mL. Current interpretive data was last revised on 2023. Blood 01/08/2025 11:4 0 PM CDT 01/09/2025 12:18 AM CDT Rebecca Garcia MD LAB BLOOD ORDERABLES Final Result [facility] of [employer] [place] [address] * Protime-INR (01/08/2025 11:40 PM CDT) PT 11.9 9.7 - 13.0 sec INR 1.10 0.90 - 1.20 [facility] Comment: Interpretive data Oral anticoagulant therapeutic ranges: Venous thromboembolism prophylaxis or treatment: 2.0-3.0 CARDIOLOGY Standard range: 2.0-3.0 High-intensity range: 2.5-3.5 Refer to indication-specific guidelines for appropriate target ranges for prosthetic heart valve replacement. Current interpretive data was last revised on 2019. Blood 01/08/2025 11:4 0 PM CDT 01/09/2025 12:18 AM CDT Rebecca Garcia MD LAB [place] [address] * Phosphorus (01/08/2025 11:40 PM CDT) Phosphorus, pl 2.3 2.3 - 4.5 mg/dL Blood 01/08/2025 11:4 0 PM CDT 01/09/2025 12:21 AM CDT Rebecca Garcia MD LAB BLOOD ORDERABLES Final Result Performing Organization Address City/[facility] Co de Phone Number [facility] [place] [address] * Magnesium (01/08/2025 11:40 PM CDT) Magnesium 2.1 1.4 - 2.5 mg/dL Blood 01/08/2025 11:4 0 PM CDT 01/09/2025 12:21 AM CDT Rebecca Garcia MD LAB BLOOD ORDERABLES Final Result Performing Organization Address City/[facility] Co de Phone Number [facility] [place] [address] * (ABNORMAL) Hepatic function panel (01/08/2025 11:40 PM CDT) [facility] [address] Bilirubin, total 0.4 0.1 - 1.2 mg/dL Bilirubin, direct 0.2 0.1 - 0.3 mg/dL [facility] Protein, pl 5.6(L) 6.5 - 8.5 g/dL [facility] Albumin 2.6(L) 3.5 - 5.0 g/dL [facility] Alk phos 96 40 - 130 Units/L [facility] ALT 30 7 - 55 Units/L [facility] AST 24 10 - 50 Units/L [facility] Blood 01/08/2025 11:4 0 PM CDT 01/09/2025 12:21 AM CDT Narrative [facility] - 01/09/2025 12:48 AM CDT Baseline prior to apixaban initiation. us Rebecca Garcia MD LAB BLOOD ORDERABLES Final Result [facility] Department [place] [address] * (ABNORMAL) Basic metabolic panel (01/08/2025 11:40 PM CDT) [facility] [address] Sodium 141 135 - 145 mmol/L Potassium, pl 4.3 3.3 - 4.9 mmol/L [facility] Chloride 108 97 - 110 mmol/L [facility] CO2 24 22 - 32 mmol/L [facility] Anion gap 9 2 - 15 mmol/L [facility] BUN 14 6 - 25 mg/dL [facility] Creatinine 0.96 0.80 - 1.30 mg/dL [facility] Glucose 164 70 - 199 mg/dL [facility] Comment: Interpretive Data Fasting glucose >/= 126 [...] 2022. Calcium 8.0(L) 8.5 - 10.3 mg/dL [facility] Blood 01/08/2025 11:4 0 PM CDT 01/09/2025 12:21 AM CDT Rebecca Garcia MD LAB BLOOD ORDERABLES Final Result Performing Organization Address City/[facility] Co de Phone Number [facility] of [employer] [place] [address] * (ABNORMAL) POCT glucose (01/08/2025 8:11 PM CDT) Glucose, POC 221(H) 70 - 199 mg/dL Blood 01/08/2025 8:11 PM CDT 01/08/2025 8:11 PM CDT Rebecca Garcia MD LAB POCT ORDERABLES - BERENICE CE Final Result Performing Organization Address [facility] Co de Phone Number [facility] [employer] [place] [address] * (ABNORMAL) POCT glucose (01/08/2025 4:31 PM CDT) Glucose, POC 211(H) 70 - 199 mg/dL Blood 01/08/2025 4:31 PM CDT 01/08/2025 4:31 PM CDT Rebecca Garcia MD LAB POCT ORDERABLES - BERENICE CE Final Result Performing Organization Address [facility] Co de Phone Number [facility] [employer] [place] [address] * COVID-19 Coronavirus RNA Nasopharyngeal (01/08/2025 3:17 PM CDT) COVID-19 RNA Negative Negative [facility] Nasopharyngeal 01/08/2025 3: 17 PM CDT 01/08/2025 3:58 PM CDT Narrative ALILSON [facility] - 01/08/2025 4:53 PM CDT Is the patient experiencing any symptoms consistent with COVID (eg. Fever, cough, shortness of breath)?->No What is the reason for testing?->Screening for semi-private room placement Interpretive data Testing performed by [facility] ([phone]). This test is performed using the [employer] Xpert Xpress CoV-2 plus assay. This is a real-time RT-PCR test intended for the qualitative detection of nucleic acid from the SARS-CoV-2. This assay has been cleared by the [place] Food and Drug administration. The performance characteristics have been verified by the [facility]. Results must be considered in the clinical context, and a negative result does not rule out infection. Interpretive data last revised 2024. Interpretive data Testing performed by [facility] ([phone]). This test is performed using the [employer] Xpert Xpress CoV-2 plus assay. This is a real-time RT-PCR test intended for the qualitative detection of nucleic acid from the SARS-CoV-2. This assay has been cleared by the [place] Food and Drug administration. The performance characteristics have been verified by the [facility]. Results must be considered in the clinical context, and a negative result does not rule out infection. Interpretive data last revised 2024. us Rebecca Garcia MD LAB MICROBIOLOGY - GENERAL ORDERABLES Final Result [facility] [place] [address] [facility] * Critical Result Callback Hematology (01/08/2025 12:07 PM CDT) Date Notified 20250108 Time Notified 13:08 ALLISON PEREZ TestName aPTT ALLISON PEREZ Called/Read Back Chula PEREZ Credentials RN ALLISON PEREZ Called By ALLISON WILSON Blood 01/08/2025 12:0 7 PM CDT 01/08/2025 12:31 PM CDT Rebecca Garcia MD LAB BLOOD ORDERABLES Final Result Performing Organization Address [facility] Co de Phone Number [facility] [place] [address] * Calcium, ionized (01/08/2025 12:07 PM CDT) Calcium, Ionized 4.58 4.50 - 5.10 mg/dL Blood 01/08/2025 12:0 7 PM CDT 01/08/2025 12:21 PM CDT Rebecca Garcia MD LAB BLOOD ORDERABLES Final Result Performing Organization Address [facility] [place] [address] * (ABNORMAL) aPTT (01/08/2025 12:07 PM CDT) aPTT >150(C) 28 - 38 sec Comment: No clot detected in sample Repeated and verified - [id number] - 01/08/25, 1:06 PM Interpretive Data Heparin therapeutic range: 66.0 - 100.0 seconds. Range based on correlation with therapeutic heparin activity range of 0.3 - 0.7 Units/mL. Current interpretive data was last revised on 2023. Blood 01/08/2025 12:0 7 PM CDT 01/08/2025 12:21 PM CDT Rebecca Garcia MD LAB BLOOD ORDERABLES Final Result Performing Organization Address [facility] [place] [address] * (ABNORMAL) POCT glucose (01/08/2025 11:12 AM CDT) Glucose, POC 234(H) 70 - 199 mg/dL Blood 01/08/2025 11:1 2 AM CDT 01/08/2025 11:12 AM CDT Rebecca Garcia MD LAB POCT ORDERABLES - BERENICE CE Final Result Performing Organization Address [facility] Co de Phone Number [facility] of [employer] [place] [address] * POCT glucose (01/08/2025 7:12 AM CDT) Glucose, POC 126 70 - 199 mg/dL Blood 01/08/2025 7:12 AM CDT 01/08/2025 7:12 AM CDT Rebecca Garcia MD LAB POCT ORDERABLES - BERENICE CE Final Result Performing Organization Address [facility] de Phone Number [facility] [employer] [place] [address] * aPTT (01/08/2025 5:05 AM CDT) aPTT [...] BLOOD ORDERABLES Final Result Performing Organization Address [facility] Co de Phone Number [facility] [employer] [place] [address] * (ABNORMAL) aPTT (01/07/2025 10:24 PM CDT) aPTT 62(H) 28 - 38 sec Comment: Interpretive Data Heparin therapeutic range: 66.0 - 100.0 seconds. Range based on correlation with therapeutic heparin activity range of 0.3 - 0.7 Units/mL. Current interpretive data was last revised on 2023. Blood 01/07/2025 10:2 4 PM CDT 01/07/2025 10:39 PM CDT Rebecca Garcia MD LAB BLOOD ORDERABLES Final Result [facility] Department [place] [address] * eGFR (01/07/2025 10:19 PM CDT) eGFR [...] MD LAB BLOOD ORDERABLES Final Result ALLISON PEREZH [facility] Department [place] [address] * (ABNORMAL) Differential, auto (01/07/2025 10:19 PM CDT) Neutrophil abs 10.38(H) 1.50 - 6.50 K/cumm Imm gran abs 0.24(H) 0.00 - 0.10 K/cumm [facility] Lymphocyte abs 0.97 0.80 - 3.30 K/cumm [facility] Monocyte abs 0.53 0.20 - 0.80 K/cumm [facility] Eosinophil abs 0.06 0.00 - 0.50 K/cumm [facility] Basophil abs 0.02 0.00 - 0.10 K/cumm [facility] Neutrophil pct 85.0 % [facility] Comment: Interpretive Data Percent cell count reference ranges are not reported, since discordance with absolute values may lead to misinterpretation of CBC data. Current Interpretive Data was last revised on 2017. Imm gran pct 2.0 % [facility] Comment: Interpretive Data Percent cell count reference ranges are not reported, since discordance with absolute values may lead to misinterpretation of CBC data. Current Interpretive Data was last revised on 2017. Lymphocyte pct 8.0 % [facility] Comment: Interpretive Data Percent cell count reference ranges are not reported, since discordance with absolute values may lead to misinterpretation of CBC data. Current Interpretive Data was last revised on 2017. Monocyte pct 4.3 % [facility] Comment: Interpretive Data Percent cell count reference ranges are not reported, since discordance with absolute values may lead to misinterpretation of CBC data. Current Interpretive Data was last revised on 2017. Eosinophil pct 0.5 % [facility] Comment: Interpretive Data Percent cell count reference ranges are not reported, since discordance with absolute values may lead to misinterpretation of CBC data. Current Interpretive Data was last revised on 2017. Basophil pct 0.2 % [facility] Comment: Interpretive Data Percent cell count reference ranges are not reported, since discordance with absolute values may lead to misinterpretation of CBC data. Current Interpretive Data was last revised on 2017. Blood 01/07/2025 10:1 9 PM CDT 01/07/2025 10:35 PM CDT Rebecca Garcia MD LAB BLOOD ORDERABLES Final Result Performing Organization Address [facility] Co de Phone Number [facility] Department [place] [address] * (ABNORMAL) CBC with auto differential (01/07/2025 10:19 PM CDT) Pathologist [facility] WBC 12.20(H) 3.80 - 9.90 K/cumm Hgb 8.3(L) 13.0 - 17.5 g/dL [facility] Hct 25.7(L) 38.9 - 50.3 % [facility] Plt 144(L) 150 - 400 K/cumm [facility] MPV 10.0 9.1 - 12.3 fL [facility] RBC 2.95(L) 4.30 - 5.80 M/cumm [facility] MCV 87.1 81.3 - 96.4 fL [facility] MCH 28.1 27.1 - 33.3 pg [facility] MCHC 32.3 32.3 - 35.7 g/dL [facility] RDW CV 18.0(H) 11.1 - 14.9 % [facility] RDW SD 55.6(H) 35.7 - 48.1 fL [facility] NRBC abs 0.00 0.00 - 0.01 K/cumm [facility] Blood 01/07/2025 10:1 9 PM CDT 01/07/2025 10:35 PM CDT Rebecca Garcia MD LAB BLOOD ORDERABLES Final Result Performing Organization Address City/[facility]/ZIP Co de Phone Number [facility] Department [place] [address] * (ABNORMAL) Phosphorus (01/07/2025 10:19 PM CDT) Pathologist [facility] Phosphorus, pl 1.5(L) 2.3 - 4.5 mg/dL Blood 01/07/2025 10:1 9 PM CDT 01/07/2025 10:35 PM CDT Rebecca Garcia MD LAB BLOOD ORDERABLES Final Result Performing Organization Address City/[facility]/ZIP Co de Phone Number [facility] [place] [address] * Magnesium (01/07/2025 10:19 PM CDT) [facility] [address] Magnesium 2.1 1.4 - 2.5 mg/dL Blood 01/07/2025 10:1 9 PM CDT 01/07/2025 10:35 PM CDT Rebecca Garcia MD LAB BLOOD ORDERABLES Final Result Performing Organization Address [facility] de Phone Number [facility] [place] [address] * (ABNORMAL) Basic metabolic panel (01/07/2025 10:19 PM CDT) [facility] [address] Sodium 137 135 - 145 mmol/L Potassium, pl 3.9 3.3 - 4.9 mmol/L [facility] Chloride 107 97 - 110 mmol/L [facility] CO2 23 22 - 32 mmol/L [facility] Anion gap 7 2 - 15 mmol/L [facility] BUN 17 6 - 25 mg/dL [facility] Creatinine 0.90 0.80 - 1.30 mg/dL [facility] Glucose 174 70 - 199 mg/dL [facility] Comment: Interpretive Data Fasting glucose >/= 126 [...] 2022. Calcium 7.7(L) 8.5 - 10.3 mg/dL ALLISON [facility] Blood 01/07/2025 10:1 9 PM CDT 01/07/2025 10:35 PM CDT us Rebecca Garcia MD LAB BLOOD ORDERABLES Final Result [facility] Department [place] [address] * CT Abdomen Pelvis W Contrast (01/07/2025 [...] BERENICE CE Final Result Performing Organization Address [facility] Co de Phone Number [facility] Department of [employer] [place] [address] * (ABNORMAL) POCT glucose (01/07/2025 4:15 PM CDT) Glucose, POC 303(H) 70 - 199 mg/dL Blood 01/07/2025 4:15 PM CDT 01/07/2025 4:15 PM CDT Rebecca Garcia MD LAB POCT ORDERABLES - BERENICE CE Final Result Performing Organization Address City/[facility] Co de Phone Number [facility] of [employer] [place] [address] * (ABNORMAL) POCT glucose (01/07/2025 11:06 AM CDT) Glucose, POC 247(H) 70 - 199 mg/dL Blood 01/07/2025 11:0 6 AM CDT 01/07/2025 11:06 AM CDT Rebecca Garcia MD LAB POCT ORDERABLES - BERENICE CE Final Result Performing Organization Address [facility] Co de Phone Number [facility] Department [place] [address] * POCT glucose (01/07/2025 7:15 AM CDT) Glucose, POC 118 70 - 199 mg/dL Blood 01/07/2025 7:15 AM CDT 01/07/2025 7:15 AM CDT us Rebecca Garcia MD LAB POCT ORDERABLES - BERENICE CE Final Result Performing Organization Address [facility] de Phone Number ALLISON [facility] [place] [address] * eGFR (01/06/2025 10:44 PM CDT) eGFR [...] BLOOD ORDERABLES Final Result Performing Organization Address City/[facility] Co de Phone Number ALLISON PEREZ [facility] Department [place] [address] * (ABNORMAL) Differential, auto (01/06/2025 10:44 PM CDT) Neutrophil abs 11.40(H) 1.50 - 6.50 K/cumm Imm gran abs 0.30(H) 0.00 - 0.10 K/cumm [facility] Lymphocyte abs 0.87 0.80 - 3.30 K/cumm [facility] Monocyte abs 0.47 0.20 - 0.80 K/cumm [facility] Eosinophil abs 0.04 0.00 - 0.50 K/cumm [facility] Basophil abs 0.01 0.00 - 0.10 K/cumm [facility] Neutrophil pct 87.1 % [facility] Comment: Interpretive Data Percent cell count reference ranges are not reported, since discordance with absolute values may lead to misinterpretation of CBC data. Current Interpretive Data was last revised on 2017. Imm gran pct 2.3 % [facility] Comment: Interpretive Data Percent cell count reference ranges are not reported, since discordance with absolute values may lead to misinterpretation of CBC data. Current Interpretive Data was last revised on 2017. Lymphocyte pct 6.6 % [facility] Comment: Interpretive Data Percent cell count reference ranges are not reported, since discordance with absolute values may lead to misinterpretation of CBC data. Current Interpretive Data was last revised on 2017. Monocyte pct 3.6 % [facility] Comment: Interpretive Data Percent cell count reference ranges are not reported, since discordance with absolute values may lead to misinterpretation of CBC data. Current Interpretive Data was last revised on 2017. Eosinophil pct 0.3 % [facility] Comment: Interpretive Data Percent cell count reference ranges are not reported, since discordance with absolute values may lead to misinterpretation of CBC data. Current Interpretive Data was last revised on 2017. Basophil pct 0.1 % [facility] Comment: Interpretive Data Percent cell count reference ranges are not reported, since discordance with absolute values may lead to misinterpretation of CBC data. Current Interpretive Data was last revised on 2017. Blood 01/06/2025 10:4 4 PM CDT 01/06/2025 11:01 PM CDT Rebecca Garcia MD LAB BLOOD ORDERABLES Final Result Performing Organization Address [facility] Co de Phone Number [facility] Department [place] [address] * (ABNORMAL) CBC with auto differential (01/06/2025 10:44 PM CDT) WBC 13.09(H) 3.80 - 9.90 K/cumm Hgb 8.5(L) 13.0 - 17.5 g/dL [facility] Hct 25.8(L) 38.9 - 50.3 % [facility] Plt 169 150 - 400 K/cumm [facility] MPV 9.8 9.1 - 12.3 fL [facility] RBC 3.00(L) 4.30 - 5.80 M/cumm [facility] MCV 86.0 81.3 - 96.4 fL [facility] MCH 28.3 27.1 - 33.3 pg [facility] MCHC 32.9 32.3 - 35.7 g/dL [facility] RDW CV 17.8(H) 11.1 - 14.9 % [facility] RDW SD 55.8(H) 35.7 - 48.1 fL [facility] NRBC abs 0.00 0.00 - 0.01 K/cumm [facility] Blood 01/06/2025 10:4 4 PM CDT 01/06/2025 11:01 PM CDT Rebecca Garcia MD LAB BLOOD ORDERABLES Final Result Performing Organization Address City/[facility]/ZIP Co de Phone Number [facility] [place] [address] * (ABNORMAL) aPTT (01/06/2025 10:44 PM CDT) [...] BLOOD ORDERABLES Final Result Performing Organization Address [facility] Co de Phone Number [facility] [employer] [place] [address] * Type and screen (01/06/2025 10:44 PM CDT) [facility] [address] ABO Rh AB Negative Lita, indirect Negative [facility] Blood 01/06/2025 10:4 4 PM CDT 01/06/2025 11:01 PM CDT Narrative [facility] - 01/07/2025 4:23 AM CDT Has the patient had Daratumumab or Isatuximab in the past 6 months?->Unknown Rebecca Garcia MD LAB BLOOD BANK TEST ORDERA BLES Final Result Performing Organization Address [facility] Co de Phone Number [facility] Department of [employer] [place] [address] * (ABNORMAL) Phosphorus (01/06/2025 10:44 PM CDT) [facility] [address] Phosphorus, pl 1.4(L) 2.3 - 4.5 mg/dL Blood 01/06/2025 10:4 4 PM CDT 01/06/2025 11:01 PM CDT Rebecca Garcia MD LAB BLOOD ORDERABLES Final Result Performing Organization Address [facility] Co de Phone Number [facility] Department [place] [address] * Magnesium (01/06/2025 10:44 PM CDT) Pathologist [facility] Magnesium 2.3 1.4 - 2.5 mg/dL Blood 01/06/2025 10:4 4 PM CDT 01/06/2025 11:01 PM CDT Rebecca Garcia MD LAB BLOOD ORDERABLES Final Result [facility] Department [place] [address] * (ABNORMAL) Basic metabolic panel (01/06/2025 10:44 PM CDT) Pathologist [facility] Sodium 140 135 - 145 mmol/L Potassium, pl 4.1 3.3 - 4.9 mmol/L [facility] Chloride 113(H) 97 - 110 mmol/L [facility] CO2 24 22 - 32 mmol/L [facility] Anion gap 3 2 - 15 mmol/L [facility] BUN 17 6 - 25 mg/dL [facility] Creatinine 0.84 0.80 - 1.30 mg/dL [facility] Glucose 178 70 - 199 mg/dL [facility] Comment: Interpretive Data Fasting glucose >/= 126 [...] 2022. Calcium 7.8(L) 8.5 - 10.3 mg/dL [facility] Blood 01/06/2025 10:4 4 PM CDT 01/06/2025 11:01 PM CDT Rebecca Garcia MD LAB BLOOD ORDERABLES Final Result Performing Organization Address [facility]/ZIP Co de Phone Number [facility] [employer] [place] [address] * (ABNORMAL) POCT glucose (01/06/2025 8:33 PM CDT) Glucose, POC 240(H) 70 - 199 mg/dL Blood 01/06/2025 8:33 PM CDT 01/06/2025 8:33 PM CDT Rebecca Garcia MD LAB POCT ORDERABLES - BERENICE CE Final Result Performing Organization Address [facility] Co de Phone Number [facility] [place] [address] * (ABNORMAL) POCT glucose (01/06/2025 4:53 PM CDT) Glucose, POC 202(H) 70 - 199 mg/dL Blood 01/06/2025 4:53 PM CDT 01/06/2025 4:53 PM CDT Rebecca Garcia MD LAB POCT ORDERABLES - BERENICE CE Final Result Performing Organization Address [facility] Co de Phone Number [facility] [place] [address] * (ABNORMAL) POCT glucose (01/06/2025 11:38 AM CDT) Glucose, POC 212(H) 70 - 199 mg/dL Comment:Glu2: RN/MD Notified Glucose comment 1 Glu2: RN/MD Notified [facility] Blood 01/06/2025 11:3 8 AM CDT 01/06/2025 11:38 AM CDT Rebecca Garcia MD LAB POCT ORDERABLES - BERENICE CE Final Result Performing Organization Address [facility] Co de Phone Number ALLISON [facility] of [employer] [place] [address] * POCT glucose (01/06/2025 7:41 AM CDT) Glucose, POC 121 70 - 199 mg/dL Blood 01/06/2025 7:41 AM CDT 01/06/2025 7:41 AM CDT Rebecca Garcia MD LAB POCT ORDERABLES - BERENICE CE Final Result Performing Organization Address [facility] [place] [address] * (ABNORMAL) aPTT (01/06/2025 6:12 AM CDT) [facility] [address] aPTT 93(H) 28 - 38 sec Comment: Interpretive Data Heparin therapeutic range: 66.0 - 100.0 seconds. Range based on correlation with therapeutic heparin activity range of 0.3 - 0.7 Units/mL. Current interpretive data was last revised on 2023. Blood 01/06/2025 6:12 AM CDT 01/06/2025 6:35 AM CDT Rebecca Garcia MD LAB BLOOD ORDERABLES Final Result Performing Organization Address [facility] Co de Phone Number ALLISON [facility] of [employer] [place] [address] * eGFR (01/06/2025 12:21 AM CDT) [facility] [address] eGFR 81 >=60 mL/min/1. 73 m2 Comment: [...] Garcia MD LAB BLOOD ORDERABLES Final Result [facility] Department [place] [address] * (ABNORMAL) Differential, auto (01/06/2025 12:21 AM CDT) Neutrophil abs 11.15(H) 1.50 - 6.50 K/cumm Imm gran abs 0.21(H) 0.00 - 0.10 K/cumm [facility] Lymphocyte abs 0.75(L) 0.80 - 3.30 K/cumm [facility] Monocyte abs 0.61 0.20 - 0.80 K/cumm [facility] Eosinophil abs 0.10 0.00 - 0.50 K/cumm [facility] Basophil abs 0.02 0.00 - 0.10 K/cumm [facility] Neutrophil pct 86.8 % [facility] Comment: Interpretive Data Percent cell count reference ranges are not reported, since discordance with absolute values may lead to misinterpretation of CBC data. Current Interpretive Data was last revised on 2017. Imm gran pct 1.6 % [facility] Comment: Interpretive Data Percent cell count reference ranges are not reported, since discordance with absolute values may lead to misinterpretation of CBC data. Current Interpretive Data was last revised on 2017. Lymphocyte pct 5.8 % [facility] Comment: Interpretive Data Percent cell count reference ranges are not reported, since discordance with absolute values may lead to misinterpretation of CBC data. Current Interpretive Data was last revised on 2017. Monocyte pct 4.8 % [facility] Comment: Interpretive Data Percent cell count reference ranges are not reported, since discordance with absolute values may lead to misinterpretation of CBC data. Current Interpretive Data was last revised on 2017. Eosinophil pct 0.8 % [facility] Comment: Interpretive Data Percent cell count reference ranges are not reported, since discordance with absolute values may lead to misinterpretation of CBC data. Current Interpretive Data was last revised on 2017. Basophil pct 0.2 % [facility] Comment: Interpretive Data Percent cell count reference ranges are not reported, since discordance with absolute values may lead to misinterpretation of CBC data. Current Interpretive Data was last revised on 2017. Blood 01/06/2025 12:2 1 AM CDT 01/06/2025 1:47 AM CDT us Rebecca Garcia MD LAB BLOOD ORDERABLES Final Result [facility] Department [place] [address] * (ABNORMAL) CBC with auto differential (01/06/2025 12:21 AM CDT) WBC 12.84(H) 3.80 - 9.90 K/cumm Hgb 8.5(L) 13.0 - 17.5 g/dL [facility] Hct 26.6(L) 38.9 - 50.3 % [facility] Plt 191 150 - 400 K/cumm [facility] MPV 10.1 9.1 - 12.3 fL [facility] RBC 3.05(L) 4.30 - 5.80 M/cumm [facility] MCV 87.2 81.3 - 96.4 fL [facility] MCH 27.9 27.1 - 33.3 pg [facility] MCHC 32.0(L) 32.3 - 35.7 g/dL [facility] RDW CV 17.9(H) 11.1 - 14.9 % [facility] RDW SD 56.6(H) 35.7 - 48.1 fL [facility] NRBC abs 0.00 0.00 - 0.01 K/cumm [facility] Blood 01/06/2025 12:2 1 AM CDT 01/06/2025 1:47 AM CDT Rebecca Garcia MD LAB BLOOD ORDERABLES Final Result Performing Organization Address City/[facility] Co de Phone Number [facility] [place] [address] * (ABNORMAL) aPTT (01/06/2025 12:21 AM CDT) [...] ORDERABLES Fi nal Result Performing Organization Address [facility] Co de Phone Number [facility] Department [place] [address] * Magnesium (01/06/2025 12:21 AM CDT) Magnesium 1.9 1.4 - 2.5 mg/dL Blood 01/06/2025 12:2 1 AM CDT 01/06/2025 1:47 AM CDT Rebecca Garcia MD LAB BLOOD ORDERABLES Final Result Performing Organization Address City/[facility] Co de Phone Number C[facility]ER [facility] Department [place] [address] * (ABNORMAL) Basic metabolic panel (01/06/2025 12:21 AM CDT) Pathologist [facility] Sodium 143 135 - 145 mmol/L Potassium, pl 3.9 3.3 - 4.9 mmol/L [facility] Chloride 112(H) 97 - 110 mmol/L [facility] CO2 23 22 - 32 mmol/L [facility] Anion gap 8 2 - 15 mmol/L [facility] BUN 16 6 - 25 mg/dL [facility] Creatinine 0.94 0.80 - 1.30 mg/dL [facility] Glucose 142 70 - 199 mg/dL [facility] Comment: Interpretive Data Fasting glucose >/= 126 [...] 2022. Calcium 8.2(L) 8.5 - 10.3 mg/dL [facility] Blood 01/06/2025 12:2 1 AM CDT 01/06/2025 1:47 AM CDT us Rebecca Garcia MD LAB BLOOD ORDERABLES Final Result ALLISON PEREZ [facility] Department [place] [address] * (ABNORMAL) POCT glucose (01/05/2025 8:29 PM CDT) Glucose, POC 218(H) 70 - 199 mg/dL Blood 01/05/2025 8:29 PM CDT 01/05/2025 8:29 PM CDT Rebecca Garcia MD LAB POCT ORDERABLES - BERENICE CE Final Result Performing Organization Address City/[facility] Co de Phone Number [facility] [employer] [place] [address] * (ABNORMAL) POCT glucose (01/05/2025 4:47 PM CDT) Glucose, POC 273(H) 70 - 199 mg/dL Blood 01/05/2025 4:47 PM CDT 01/05/2025 4:47 PM CDT Rebecca Garcia MD LAB POCT ORDERABLES - BERENICE CE Final Result Performing Organization Address [facility] de Phone Number ALLISON [facility] [employer] [place] [address] * (ABNORMAL) aPTT (01/05/2025 4:10 PM CDT) aPTT 138(H) 28 - 38 sec Comment: Repeated and verified - [id number] - 01/05/25, 5:13 PM Interpretive Data Heparin therapeutic range: 66.0 - 100.0 seconds. Range based on correlation with therapeutic heparin activity range of 0.3 - 0.7 Units/mL. Current interpretive data was last revised on 2023. Blood 01/05/2025 4:10 PM CDT 01/05/2025 4:52 PM CDT Rebecca Garcia MD LAB BLOOD ORDERABLES Final Result Performing Organization Address [facility] Co de Phone Number [facility] [place] [address] * (ABNORMAL) POCT glucose (01/05/2025 12:25 PM CDT) Glucose, POC 290(H) 70 - 199 mg/dL Blood 01/05/2025 12:2 5 PM CDT 01/05/2025 12:25 PM CDT Rebecca Garcia MD LAB POCT ORDERABLES - BERENICE CE Final Result Performing Organization Address [facility] Co de Phone Number ALLISON [facility] [place] [address] * eGFR (01/05/2025 8:00 AM CDT) eGFR [...] CDT 01/05/2025 8:12 AM CDT us Hermes Molina MD LAB BLOOD ORDERABLES Clara l Result [facility] [place] [address] * (ABNORMAL) aPTT (01/05/2025 8:00 AM CDT) aPTT 106(H) 28 - 38 sec Comment: Interpretive Data Heparin therapeutic range: 66.0 - 100.0 seconds. Range based on correlation with therapeutic heparin activity range of 0.3 - 0.7 Units/mL. Current interpretive data was last revised on 2023. Blood 01/05/2025 8:00 AM CDT 01/05/2025 8:10 AM CDT Hermes Molina MD LAB BLOOD ORDERABLES Clara l Result [facility] Department [place] [address] * (ABNORMAL) Basic metabolic panel (01/05/2025 8:00 AM CDT) Pathologist [facility] Sodium 144 135 - 145 mmol/L Potassium, pl 3.2(L) 3.3 - 4.9 mmol/L [facility] Chloride 113(H) 97 - 110 mmol/L [facility] CO2 21(L) 22 - 32 mmol/L [facility] Anion gap 10 2 - 15 mmol/L [facility] BUN 19 6 - 25 mg/dL [facility] Creatinine 1.06 0.80 - 1.30 mg/dL [facility] Glucose 134 70 - 199 mg/dL [facility] Comment: Interpretive Data Fasting glucose >/= 126 [...] 2022. Calcium 8.1(L) 8.5 - 10.3 mg/dL [facility] Blood 01/05/2025 8:00 AM CDT 01/05/2025 8:12 AM CDT Hermes Molina MD LAB BLOOD ORDERABLES Clara l Result Performing Organization Address [facility] de Phone Number [facility] [place] [address] * POCT glucose (01/05/2025 4:55 AM CDT) Glucose, POC 118 70 - 199 mg/dL Blood 01/05/2025 4:55 AM CDT 01/05/2025 4:55 AM CDT Rebecca Garcia MD LAB POCT ORDERABLES - BERENICE CE Final Result Performing Organization Address [facility] de Phone Number [facility] [place] [address] * POCT glucose (01/04/2025 11:51 PM CDT) Glucose, POC 137 70 - 199 mg/dL Blood 01/04/2025 11:5 1 PM CDT 01/04/2025 11:51 PM CDT Rebecca Garcia MD LAB POCT ORDERABLES - BERENICE CE Final Result Performing Organization Address [facility] de Phone Number [facility] Department [place] [address] * Critical Result Callback Hematology (01/04/2025 10:22 PM CDT) Date Notified [id number] Time Notified [id number] ALLISON PEREZ TestName aPTT ALLISON PEREZ Called/Read Back Rhiannon PEREZ Credentials RN ALLISON PEREZ Called By JED PEREZ Blood 01/04/2025 10:2 2 PM CDT 01/04/2025 10:54 PM CDT Rebecca Garcia MD LAB BLOOD ORDERABLES Final Result Performing Organization Address [facility]/ZIP Co de Phone Number [facility]ERNER [facility] Department [place] [address] * (ABNORMAL) aPTT (01/04/2025 10:22 PM CDT) [...] Garcia MD LAB BLOOD ORDERABLES Final Result [facility] [place] [address] * eGFR (01/04/2025 10:21 PM CDT) eGFR [...] Garcia MD LAB BLOOD ORDERABLES Final Result [facility] Department [place] [address] * (ABNORMAL) Differential, auto (01/04/2025 10:21 PM CDT) Neutrophil abs 13.95(H) 1.50 - 6.50 K/cumm Imm gran abs 0.15(H) 0.00 - 0.10 K/cumm [facility] Lymphocyte abs 0.50(L) 0.80 - 3.30 K/cumm [facility] Monocyte abs 0.46 0.20 - 0.80 K/cumm [facility] Eosinophil abs 0.04 0.00 - 0.50 K/cumm [facility] Basophil abs 0.02 0.00 - 0.10 K/cumm [facility] Neutrophil pct 92.3 % [facility] Comment: Interpretive Data Percent cell count reference ranges are not reported, since discordance with absolute values may lead to misinterpretation of CBC data. Current Interpretive Data was last revised on 2017. Imm gran pct 1.0 % [facility] Comment: Interpretive Data Percent cell count reference ranges are not reported, since discordance with absolute values may lead to misinterpretation of CBC data. Current Interpretive Data was last revised on 2017. Lymphocyte pct 3.3 % [facility] Comment: Interpretive Data Percent cell count reference ranges are not reported, since discordance with absolute values may lead to misinterpretation of CBC data. Current Interpretive Data was last revised on 2017. Monocyte pct 3.0 % [facility] Comment: Interpretive Data Percent cell count reference ranges are not reported, since discordance with absolute values may lead to misinterpretation of CBC data. Current Interpretive Data was last revised on 2017. Eosinophil pct 0.3 % [facility] Comment: Interpretive Data Percent cell count reference ranges are not reported, since discordance with absolute values may lead to misinterpretation of CBC data. Current Interpretive Data was last revised on 2017. Basophil pct 0.1 % [facility] Comment: Interpretive Data Percent cell count reference ranges are not reported, since discordance with absolute values may lead to misinterpretation of CBC data. Current Interpretive Data was last revised on 2017. Blood 01/04/2025 10:2 1 PM CDT 01/04/2025 10:43 PM CDT Rebecca Garcia MD LAB BLOOD ORDERABLES Final Result Performing Organization Address City/[facility] Co de Phone Number [facility] Department [place] [address] * (ABNORMAL) Iron profile w/ IBC (01/04/2025 10:21 PM CDT) [facility] [address] Iron 48(L) 50 - 150 mcg/dL TIBC 159(L) 250 - 400 mcg/dL [facility] Transferrin saturation 30 20 - 50 % [facility] Blood 01/04/2025 10:2 1 PM CDT 01/04/2025 10:43 PM CDT Rebecca Garcia MD LAB BLOOD ORDERABLES Final Result Performing Organization Address [facility] de Phone Number [facility] [place] [address] * (ABNORMAL) CBC with auto differential (01/04/2025 10:21 PM CDT) [facility] [address] WBC 15.12(H) 3.80 - 9.90 K/cumm Hgb 10.4(L) 13.0 - 17.5 g/dL [facility] Hct 32.2(L) 38.9 - 50.3 % [facility] Plt 211 150 - 400 K/cumm [facility] MPV 9.6 9.1 - 12.3 fL [facility] RBC 3.71(L) 4.30 - 5.80 M/cumm [facility] MCV 86.8 81.3 - 96.4 fL [facility] MCH 28.0 27.1 - 33.3 pg [facility] MCHC 32.3 32.3 - 35.7 g/dL [facility] RDW CV 18.1(H) 11.1 - 14.9 % [facility] RDW SD 56.3(H) 35.7 - 48.1 fL [facility] NRBC abs 0.00 0.00 - 0.01 K/cumm [facility] Blood 01/04/2025 10:2 1 PM CDT 01/04/2025 10:43 PM CDT Rebecca Garcia MD LAB BLOOD ORDERABLES Final Result Performing Organization Address City/[facility] Co de Phone Number [facility] [employer] [place] [address] * Magnesium (01/04/2025 10:21 PM CDT) Pathologist [facility] Magnesium 2.1 1.4 - 2.5 mg/dL Blood 01/04/2025 10:2 1 PM CDT 01/04/2025 10:43 PM CDT Rebecca Garcia MD LAB BLOOD ORDERABLES Final Result Performing Organization Address [facility] de Phone Number [facility] Department [place] [address] * (ABNORMAL) Ferritin (01/04/2025 10:21 PM CDT) Ferritin 1,187(H) 30 - 400 ng/mL Blood 01/04/2025 10:2 1 PM CDT 01/04/2025 10:43 PM CDT Rebecca Garcia MD LAB BLOOD ORDERABLES Final Result Performing Organization Address [facility] Co de Phone Number [facility] [place] [address] * (ABNORMAL) Basic metabolic panel (01/04/2025 10:21 PM CDT) Sodium 148(H) 135 - 145 mmol/L Potassium, pl 3.3 3.3 - 4.9 mmol/L [facility] Chloride 114(H) 97 - 110 mmol/L [facility] CO2 21(L) 22 - 32 mmol/L [facility] Anion gap 13 2 - 15 mmol/L [facility] BUN 20 6 - 25 mg/dL [facility] Creatinine 1.11 0.80 - 1.30 mg/dL [facility] Glucose 156 70 - 199 mg/dL [facility] Comment: Interpretive Data Fasting glucose >/= 126 [...] 2022. Calcium 8.4(L) 8.5 - 10.3 mg/dL [facility] Blood 01/04/2025 10:2 1 PM CDT 01/04/2025 10:43 PM CDT us Rebecca Garcia MD LAB BLOOD ORDERABLES Final Result Performing Organization Address City/[facility]/ZIP Co de Phone Number [facility] Department [place] [address] * POCT glucose (01/04/2025 8:39 PM CDT) Glucose, POC 182 70 - 199 mg/dL Blood 01/04/2025 8:39 PM CDT 01/04/2025 8:39 PM CDT Rebecca Garcia MD LAB POCT ORDERABLES - BERENICE CE Final Result Performing Organization Address City/[facility]/ZIP Co de Phone Number ALLISON Dickens [facility] Department [place] [address] * (ABNORMAL) POCT glucose (01/04/2025 4:23 PM CDT) Glucose, POC 215(H) 70 - 199 mg/dL Blood 01/04/2025 4:23 PM CDT 01/04/2025 4:23 PM CDT us Rebecca Garcia MD LAB POCT ORDERABLES - BERENICE CE Final Result Performing Organization Address City/[facility] Children/[facility] Co de Phone Number ALLISON PEREZ Chrissie [facility] Department [place] [address] * CT Cystogram WO Contrast (01/04/2025 1:21 [...] (ABNORMAL) POCT glucose (01/04/2025 11:51 AM CDT) Pathologist [facility] Glucose, POC 218(H) 70 - 199 mg/dL Blood 01/04/2025 11:5 1 AM CDT 01/04/2025 11:51 AM CDT Rebecca Garcia MD LAB POCT ORDERABLES - BERENICE CE Final Result [facility] Department [place] [address] * POCT glucose (01/04/2025 7:46 AM CDT) [facility] [address] Glucose, POC 187 70 - 199 mg/dL Blood 01/04/2025 7:46 AM CDT 01/04/2025 7:46 AM CDT Rebecca Garcia MD LAB POCT ORDERABLES - BERENICE CE Final Result Performing Organization Address City/[facility]/ZIP Co de Phone Number [facility] Department [place] [address] * (ABNORMAL) eGFR (01/04/2025 4:04 AM CDT) [facility] [address] eGFR 56(L) >=60 mL/min/1. 73 m2 Comment: [...] Garcia MD LAB BLOOD ORDERABLES Final Result [facility] One [facility] Department [place] [address] * (ABNORMAL) Differential, auto (01/04/2025 4:04 AM CDT) Neutrophil abs 12.79(H) 1.50 - 6.50 K/cumm Imm gran abs 0.15(H) 0.00 - 0.10 K/cumm [facility] Lymphocyte abs 0.53(L) 0.80 - 3.30 K/cumm [facility] Monocyte abs 0.53 0.20 - 0.80 K/cumm [facility] Eosinophil abs 0.03 0.00 - 0.50 K/cumm [facility] Basophil abs 0.02 0.00 - 0.10 K/cumm [facility] Neutrophil pct 91.0 % [facility] Comment: Interpretive Data Percent cell count reference ranges are not reported, since discordance with absolute values may lead to misinterpretation of CBC data. Current Interpretive Data was last revised on 2017. Imm gran pct 1.1 % [facility] Comment: Interpretive Data Percent cell count reference ranges are not reported, since discordance with absolute values may lead to misinterpretation of CBC data. Current Interpretive Data was last revised on 2017. Lymphocyte pct 3.8 % [facility] Comment: Interpretive Data Percent cell count reference ranges are not reported, since discordance with absolute values may lead to misinterpretation of CBC data. Current Interpretive Data was last revised on 2017. Monocyte pct 3.8 % [facility] Comment: Interpretive Data Percent cell count reference ranges are not reported, since discordance with absolute values may lead to misinterpretation of CBC data. Current Interpretive Data was last revised on 2017. Eosinophil pct 0.2 % [facility] Comment: Interpretive Data Percent cell count reference ranges are not reported, since discordance with absolute values may lead to misinterpretation of CBC data. Current Interpretive Data was last revised on 2017. Basophil pct 0.1 % [facility] Comment: Interpretive Data Percent cell count reference ranges are not reported, since discordance with absolute values may lead to misinterpretation of CBC data. Current Interpretive Data was last revised on 2017. Blood 01/04/2025 4:04 AM CDT 01/04/2025 4:18 AM CDT us Rebecca Garcia MD LAB BLOOD ORDERABLES Final Result [facility] One [facility] Department [place] [address] * (ABNORMAL) CBC with auto differential (01/04/2025 4:04 AM CDT) WBC 14.05(H) 3.80 - 9.90 K/cumm Hgb 9.4(L) 13.0 - 17.5 g/dL [facility] Hct 29.2(L) 38.9 - 50.3 % [facility] Plt 186 150 - 400 K/cumm [facility] MPV 10.1 9.1 - 12.3 fL [facility] RBC 3.35(L) 4.30 - 5.80 M/cumm [facility] MCV 87.2 81.3 - 96.4 fL [facility] MCH 28.1 27.1 - 33.3 pg [facility] MCHC 32.2(L) 32.3 - 35.7 g/dL [facility] RDW CV 17.4(H) 11.1 - 14.9 % [facility] RDW SD 54.4(H) 35.7 - 48.1 fL [facility] NRBC abs 0.00 0.00 - 0.01 K/cumm [facility] Blood 01/04/2025 4:04 AM CDT 01/04/2025 4:18 AM CDT Rebecca Garcia MD LAB BLOOD ORDERABLES Final Result Performing Organization Address [facility] Co de Phone Number [facility] [employer] [place] [address] * (ABNORMAL) aPTT (01/04/2025 4:04 AM CDT) [...] BLOOD ORDERABLES Final Result Performing Organization Address [facility] [place] [address] * (ABNORMAL) Protime-INR (01/04/2025 4:04 AM CDT) PT 13.8(H) 9.7 - 13.0 sec INR 1.27(H) 0.90 - 1.20 [facility] Comment: Interpretive data Oral anticoagulant therapeutic ranges: Venous thromboembolism prophylaxis or treatment: 2.0-3.0 CARDIOLOGY Standard range: 2.0-3.0 High-intensity range: 2.5-3.5 Refer to indication-specific guidelines for appropriate target ranges for prosthetic heart valve replacement. Current interpretive data was last revised on 2019. Blood 01/04/2025 4:04 AM CDT 01/04/2025 4:29 AM CDT Rebecca Garcia MD LAB BLOOD ORDERABLES Final Result Performing Organization Address [facility] Co de Phone Number [facility] [place] [address] * Vancomycin level trough Draw trough 30 minutes prior to 3rd dose. (01/04/2025 4:04 AM CDT) [facility] [address] Vancomycin trough 15.8 10.0 - 20.0 mcg/mL Blood 01/04/2025 4:04 AM CDT 01/04/2025 4:18 AM CDT Narrative [facility] - 01/04/2025 4:47 AM CDT Draw trough 30 minutes prior to 3rd dose. Hermes Molina MD LAB BLOOD ORDERABLES Clara l Result Performing Organization Address [facility] de Phone Number [facility] Department [place] [address] * (ABNORMAL) Basic metabolic panel (01/04/2025 4:04 AM CDT) [facility] [address] Sodium 146(H) 135 - 145 mmol/L Potassium, pl 3.5 3.3 - 4.9 mmol/L [facility] Chloride 115(H) 97 - 110 mmol/L [facility] CO2 22 22 - 32 mmol/L [facility] Anion gap 9 2 - 15 mmol/L [facility] BUN 22 6 - 25 mg/dL [facility] Creatinine 1.27 0.80 - 1.30 mg/dL [facility] Glucose 179 70 - 199 mg/dL [facility] Comment: Interpretive Data Fasting glucose >/= 126 [...] 2022. Calcium 8.0(L) 8.5 - 10.3 mg/dL [facility] Blood 01/04/2025 4:04 AM CDT 01/04/2025 4:18 AM CDT Rebecca Garcia MD LAB BLOOD ORDERABLES Final Result Performing Organization Address City/[facility] Co de Phone Number [facility] [employer] [place] [address] * POCT glucose (01/04/2025 3:59 AM CDT) Glucose, POC 187 70 - 199 mg/dL Blood 01/04/2025 3:59 AM CDT 01/04/2025 3:59 AM CDT Rebecca Garcia MD LAB POCT ORDERABLES - BERENICE CE Final Result Performing Organization Address [facility] de Phone Number [facility] [employer] [place] [address] * POCT glucose (01/04/2025 12:24 AM CDT) Glucose, POC 189 70 - 199 mg/dL Blood 01/04/2025 12:2 4 AM CDT 01/04/2025 12:24 AM CDT Rebecca Garcia MD LAB POCT ORDERABLES - BERENCIE CE Final Result Performing Organization Address [facility] Co de Phone Number [facility] [employer] [place] [address] * (ABNORMAL) POCT glucose (01/03/2025 8:07 PM CDT) Glucose, POC 210(H) 70 - 199 mg/dL Blood 01/03/2025 8:07 PM CDT 01/03/2025 8:07 PM CDT Rebecca Garcia MD LAB POCT ORDERABLES - BERENICE CE Final Result Performing Organization Address [facility] Co de Phone Number [facility] [place] [address] * (ABNORMAL) aPTT (01/03/2025 7:03 PM CDT) [...] Res ult - Final Performing Organization Address [facility] Co de Phone Number [facility] [place] [address] * (ABNORMAL) Protime-INR (01/03/2025 7:03 PM CDT) PT 14.7(H) 9.7 - 13.0 sec INR 1.35(H) 0.90 - 1.20 [facility] Comment: Interpretive data Oral anticoagulant therapeutic ranges: Venous thromboembolism prophylaxis or treatment: 2.0-3.0 CARDIOLOGY Standard range: 2.0-3.0 High-intensity range: 2.5-3.5 Refer to indication-specific guidelines for appropriate target ranges for prosthetic heart valve replacement. Current interpretive data was last revised on 2019. Blood 01/03/2025 7:03 PM CDT 01/03/2025 7:23 PM CDT Fransisca Delgado MD LAB BLOOD ORDERABLES Final Resu lt Performing Organization Address [facility] Co de Phone Number [facility] [employer] [place] [address] * Antithrombin Activity (01/03/2025 7:03 PM CDT) Antithrombin III 86 80 - 125 % Comment: Interpretive Data High concentrations of anti-Xa direct oral anticoagulants can cause Antithrombin activities to be falsely elevated. Current interpretive data was last reviewed 2024 Blood 01/03/2025 7:03 PM CDT 01/03/2025 7:23 PM CDT Rebecca Garcia MD LAB BLOOD ORDERABLES Final Result Performing Organization Address [facility] Co de Phone Number [facility] [employer] [place] [address] * (ABNORMAL) POCT glucose (01/03/2025 6:23 PM CDT) Glucose, POC 211(H) 70 - 199 mg/dL Blood 01/03/2025 6:23 PM CDT 01/03/2025 6:23 PM CDT Rebecca Garcia MD LAB POCT ORDERABLES - BERENICE CE Final Result Performing Organization Address [facility] Co de Phone Number [facility] [employer] [place] [address] * US Abdomen Limited (01/03/2025 6:01 PM [...] by: Malcolm Ventura MD Rebecca Garcia MD IMG US PROCEDURES Final Re sult * (ABNORMAL) POCT glucose (01/03/2025 4:33 PM CDT) Glucose, POC 245(H) 70 - 199 mg/dL Blood 01/03/2025 4:33 PM CDT 01/03/2025 4:33 PM CDT Rebecca Garcia MD LAB POCT ORDERABLES - BERENICE CE Final Result [facility] One [facility] [place] [address] * US Vein Duplex Lower Extremity Bilateral Complete (01/03/2025 1:36 PM CDT) Anatomical Region Laterality Modality Vascular Bilateral Ultrasound 01/03/2025 12:5 0 PM CDT Narrative 01/05/2025 1:50 PM CDT [facility] - Department of Vascular Surgery, Vascular Laboratory [address] [place] [address] Lower Extremity Venous Ultrasound Report Patient Name: RENÉ PEREZ : 1940 (84y 11m) Study Date: 01/03/2025 12:50:39 PM Gender: M Tech: Location: [id number] Ref Provider: REBECCA ALCANTARA Quality: Adequate Order [...] edema and low aPTT - FINDINGS: Performing Strapping Machine Tender: Regina Arango RVT. Right: Duplex scan reveals [...] above. Electronically Signed By: Lionel Snyder MD [facility] [phone] 01/05/2025 1:33:15 PM CDT Procedure Note Lionel Snyder MD - 01/05/2025 [employer] - Department of Vascular Surgery,Vascular Laboratory [address] [place] [id number] Lower Extremity Venous Ultrasound Report Patient Name: RENÉ PEREZ : 1940 (84y 11m) Study Date: 01/03/2025 12:50:39 PM Gender: M Tech: Location: [id number] Ref Provider: REBECCA ALACNTARA Quality: Adequate Order Provider: REBECCA ALCANTARA PROCEDURES: Vascular Report: Venous Duplex imaging was performed bilaterally in the lower extremities.The common femoral, femoral, popliteal, posterior tibial, peroneal veins wereevaluated for patency, spontaneity and phasicity with Doppler, compression and augmentationmaneuvers. Great saphenous vein proximal at the junction was evaluated with compressionmaneuvers. INDICATIONS: LLE edema and low aPTT - FINDINGS: Performing Strapping Machine Tender: Regina Arango RVT. Right: Duplex scan reveals [...] above. Electronically Signed By: Lionel Snyder MD [facility] [phone] 01/05/2025 1:33:15 PM CDT Rebecca Garcia MD IMG US PROCEDURES Final Re sult * POCT glucose (01/03/2025 11:14 AM CDT) Pathologist [facility] Glucose, POC 183 70 - 199 mg/dL Blood 01/03/2025 11:1 4 AM CDT 01/03/2025 11:14 AM CDT Rebecca Garcia MD LAB POCT ORDERABLES - BERENICE CE Final Result [facility] One [facility] [place] [address] * TRANSTHORACIC ECHO (TTE) COMPLETE W DOPPLER/CF W CONTRAST (01/03/2025 9:19 AM CDT) EF Mod BP 65 % CONS SCIMAGE Anatomical Region Laterality Modality Ultrasound 01/03/2025 8:19 AM CDT Narrative 01/03/2025 10:02 AM CDT [facility] [place] [address] Transthoracic Echocardiographic Report Patient Name: REÉN PEREZ M : 1940 (84y 11m) Gender: M Study Date: 01/03/2025 08:19:41 AM Ht(Inch): 73 Wt(Lb): 209 BSA: 2.21 Strapping Machine Tender: Melissa Miller Location: [id number] Order Provider: REBECCA ALCANTARA Heart Rate: 127 [...] Note Roney Gonzales MD PhD - 01/03/2025 [facility] [place] [address] Transthoracic Echocardiographic Report Patient Name: RENÉ PEREZ M : 1940 (84y 11m) Gender: M Study Date: 01/03/2025 08:19:41 AM Ht(Inch): 73 Wt(Lb): 209 BSA: 2.21 Strapping Machine Tender: Melissa Miller Location: [id number] Order Provider: REBECCA CONTI Heart Rate: 127 [...] [ 2.5 - 4.2 ] MV Decel Dvog609.99 msec [ 104.00 - 258.00 ] TAPSE [...] Asc Ao Index1.88 cm/m2 Electronically Signed By: Roney Gonzales MD 01/03/2025 10:01:33 AM CDT Rebecca Garcia MD CV ECHO PROCEDURES Final R esult * POCT glucose (01/03/2025 7:22 AM CDT) Glucose, POC 199 70 - 199 mg/dL Blood 01/03/2025 7:22 AM CDT 01/03/2025 7:22 AM CDT Rebecca Garcia MD LAB POCT ORDERABLES - BERENICE CE Final Result Performing Organization Address [facility] de Phone Number [facility] Department of [employer] [place] [address] * POCT glucose (01/03/2025 3:55 AM CDT) Glucose, POC 199 70 - 199 mg/dL Blood 01/03/2025 3:55 AM CDT 01/03/2025 3:55 AM CDT Rebecca Garcia MD LAB POCT ORDERABLES - BERENICE CE Final Result Performing Organization Address [facility] de Phone Number [facility] Department of [employer] [place] [address] * POCT glucose (01/02/2025 11:31 PM CDT) Glucose, POC 162 70 - 199 mg/dL Blood 01/02/2025 11:3 1 PM CDT 01/02/2025 11:31 PM CDT Rebecca Garcia MD LAB POCT ORDERABLES - BERENICE CE Final Result Performing Organization Address [facility] [place] [address] * POCT glucose (01/02/2025 7:38 PM CDT) Glucose, POC 129 70 - 199 mg/dL Blood 01/02/2025 7:38 PM CDT 01/02/2025 7:38 PM CDT Rebecca Garcia MD LAB POCT ORDERABLES - BERENICE CE Final Result Performing Organization Address [facility] [place] [address] * POCT glucose (01/02/2025 4:29 PM CDT) Glucose, POC 100 70 - 199 mg/dL Blood 01/02/2025 4:29 PM CDT 01/02/2025 4:29 PM CDT Rebecca Garcia MD LAB POCT ORDERABLES - BERENICE CE Final Result Performing Organization Address [facility] [place] [address] * POCT glucose (01/02/2025 1:03 PM CDT) Glucose, POC 97 70 - 199 mg/dL Blood 01/02/2025 1:03 PM CDT 01/02/2025 1:03 PM CDT Rebecca Garcia MD LAB POCT ORDERABLES - BERENICE CE Final Result Performing Organization Address [facility] Co de Phone Number [facility] [place] [address] * (ABNORMAL) aPTT (01/02/2025 10:38 AM CDT) aPTT 23(L) 28 - 38 sec Comment: Interpretive Data Heparin therapeutic range: 66.0 - 100.0 seconds. Range based on correlation with therapeutic heparin activity range of 0.3 - 0.7 Units/mL. Current interpretive data was last revised on 2023. Blood 01/02/2025 10:3 8 AM CDT 01/02/2025 10:52 AM CDT Result [facility] Rebecca Garcia MD LAB BLOOD ORDERABLES Final Result Performing Organization Address [facility] de Phone Number [facility] [place] [address] * Protime-INR (01/02/2025 10:38 AM CDT) [facility] [address] PT 12.9 9.7 - 13.0 sec INR 1.19 0.90 - 1.20 [facility] Comment: Interpretive data Oral anticoagulant therapeutic ranges: Venous thromboembolism prophylaxis or treatment: 2.0-3.0 CARDIOLOGY Standard range: 2.0-3.0 High-intensity range: 2.5-3.5 Refer to indication-specific guidelines for appropriate target ranges for prosthetic heart valve replacement. Current interpretive data was last revised on 2019. Blood 01/02/2025 10:3 8 AM CDT 01/02/2025 10:52 AM CDT Result [facility] Rebecca Garcia MD LAB BLOOD ORDERABLES Final Result Performing Organization Address [facility] Co de Phone Number [facility] [place] [address] * POCT glucose (01/02/2025 7:25 AM CDT) Pathologist [facility] Glucose, POC 78 70 - 199 mg/dL Blood 01/02/2025 7:25 AM CDT 01/02/2025 7:25 AM CDT Result [facility] Rebecca Garcia MD LAB POCT ORDERABLES - BERENICE CE Final Result [facility] One [facility] Department [place] [address] * ECG 12 lead (01/02/2025 7:13 AM CDT) Ventricular Rate EKG/Min 102 BPM [facility] Atrial Rate 102 BPM [facility] PA-Interval (MSEC) 184 ms [facility] QRS-Interval (MSEC) [address] [facility] QT-Interval (MSEC) 374 ms [facility] QTc 487 ms [facility] R Walton -32 degrees [facility] T [place] 21 degrees [facility] Diagnosis Sinus tachycardia Left axis deviation Right bundle branch block Inferior infarct , age undetermined Abnormal ECG When compared with ECG of 26-JUN-2023 12:42, Significant changes have occurred Confirmed by HALEIGH DONG M.D ([id number]) on 01/02/2025 10:28:47 AM [facility] 01/02/2025 7:13 AM CDT 01/02/2025 10:28 AM CDT us Rebecca Garcia MD ECG ORDERABLES Final Resu lt Performing Organization Address City/[facility]/ZIP Co de Phone Number [facility] * eGFR (01/02/2025 5:14 AM CDT) eGFR 81 >=60 mL/min/1. 73 m2 [...] Clayton MD LAB BLOOD ORDERABLES Final Result [facility] One [facility] Department [place] [address] * (ABNORMAL) Differential, auto (01/02/2025 5:14 AM CDT) Neutrophil abs 16.10(H) 1.50 - 6.50 K/cumm Imm gran abs 0.17(H) 0.00 - 0.10 K/cumm [facility] Lymphocyte abs 0.66(L) 0.80 - 3.30 K/cumm [facility] Monocyte abs 0.76 0.20 - 0.80 K/cumm [facility] Eosinophil abs 0.01 0.00 - 0.50 K/cumm [facility] Basophil abs 0.02 0.00 - 0.10 K/cumm [facility] Neutrophil pct 90.8 % [facility] Comment: Interpretive Data Percent cell count reference ranges are not reported, since discordance with absolute values may lead to misinterpretation of CBC data. Current Interpretive Data was last revised on 2017. Imm gran pct 1.0 % [facility] Comment: Interpretive Data Percent cell count reference ranges are not reported, since discordance with absolute values may lead to misinterpretation of CBC data. Current Interpretive Data was last revised on 2017. Lymphocyte pct 3.7 % [facility] Comment: Interpretive Data Percent cell count reference ranges are not reported, since discordance with absolute values may lead to misinterpretation of CBC data. Current Interpretive Data was last revised on 2017. Monocyte pct 4.3 % [facility] Comment: Interpretive Data Percent cell count reference ranges are not reported, since discordance with absolute values may lead to misinterpretation of CBC data. Current Interpretive Data was last revised on 2017. Eosinophil pct 0.1 % [facility] Comment: Interpretive Data Percent cell count reference ranges are not reported, since discordance with absolute values may lead to misinterpretation of CBC data. Current Interpretive Data was last revised on 2017. Basophil pct 0.1 % [facility] Comment: Interpretive Data Percent cell count reference ranges are not reported, since discordance with absolute values may lead to misinterpretation of CBC data. Current Interpretive Data was last revised on 2017. Blood 01/02/2025 5:14 AM CDT 01/02/2025 6:38 AM CDT us Brittney [place] MD LAB BLOOD ORDERABLES Final Result [facility] One [facility] Department [place] [address] * (ABNORMAL) CBC with auto differential (01/02/2025 5:14 AM CDT) WBC 17.72(H) 3.80 - 9.90 K/cumm Hgb 9.8(L) 13.0 - 17.5 g/dL [facility] Hct 29.4(L) 38.9 - 50.3 % [facility] Plt 203 150 - 400 K/cumm [facility] MPV 10.1 9.1 - 12.3 fL [facility] RBC 3.46(L) 4.30 - 5.80 M/cumm [facility] MCV 85.0 81.3 - 96.4 fL [facility] MCH 28.3 27.1 - 33.3 pg [facility] MCHC 33.3 32.3 - 35.7 g/dL [facility] RDW CV 17.0(H) 11.1 - 14.9 % [facility] RDW SD 51.1(H) 35.7 - 48.1 fL [facility] NRBC abs 0.00 0.00 - 0.01 K/cumm [facility] Blood 01/02/2025 5:14 AM CDT 01/02/2025 6:38 AM CDT us Brittney [place] MD LAB BLOOD ORDERABLES Final Result Performing Organization Address [facility] de Phone Number [facility] [place] [address] * (ABNORMAL) Hemoglobin A1c (01/02/2025 5:14 AM CDT) Hgb A1C 9.0(H) 4.0 - 5.6 % Estimated Average Glucose 212 mg/dL [facility] Comment: The ADA recommends reporting an estimated Average Glucose (eAG) with all Hemoglobin A1c results using the equation derived from a study of 507 normal and diabetic adults. Minority populations were underrepresented and children were not included. (Diabetes Care 2020; 43(S1): S66-S76). The eAG is not equivalent to a fasting glucose. Blood 01/02/2025 5:14 AM CDT 01/02/2025 6:38 AM CDT Rebecca Garcia MD LAB BLOOD ORDERABLES Final Result Performing Organization Address [facility] de Phone Number [facility] [place] [address] * (ABNORMAL) Basic metabolic panel (01/02/2025 5:14 AM CDT) Pathologist [facility] Sodium 141 135 - 145 mmol/L Potassium, pl 3.8 3.3 - 4.9 mmol/L [facility] Chloride 110 97 - 110 mmol/L [facility] CO2 22 22 - 32 mmol/L [facility] Anion gap 9 2 - 15 mmol/L [facility] BUN 23 6 - 25 mg/dL [facility] Creatinine 0.94 0.80 - 1.30 mg/dL [facility] Glucose 85 70 - 199 mg/dL [facility] Comment: Interpretive Data Fasting glucose >/= 126 [...] 2022. Calcium 8.4(L) 8.5 - 10.3 mg/dL [facility] Blood 01/02/2025 5:14 AM CDT 01/02/2025 6:38 AM CDT us Brittney Clayton MD LAB BLOOD ORDERABLES Final Result Performing Organization Address [facility] Co de Phone Number [facility] Department [place] [address] * POCT glucose (01/02/2025 12:47 AM CDT) Glucose, POC 147 70 - 199 mg/dL Blood 01/02/2025 12:4 7 AM CDT 01/02/2025 12:47 AM CDT Brittney Clayton MD LAB POCT ORDERABLES - DEVICE Final Result Performing Organization Address [facility] Co de Phone Number [facility] Department [place] [address] * PA CRITICAL CARE ILL/INJURED PATIENT INIT 30-74 MIN [...] ur Straw Yellow Clarity, ur Cloudy(A) Clear [facility] Specific gravity, ur 1.035(H) 1.003 - 1.030 [facility] pH, urine 6.0 [facility] Comment: Interpretive Data U rine pH is affected by diet, medications, systemic acid-base disturbances, and renal tubular function. pH may affect urinary stone formation. For example, urine pH below 6.0 may help reduce the tendency for calcium phosphate stones and pH greater than 6.0 may reduce the tendency for uric acid stone formation. Source: [employer] Current Interpretive Data was last revised on 2017 Protein, ur ql 1+(A) Negative [facility] Glucose, ur ql 4+(A) Negative [facility] Ketones, ur Negative Negative [facility] Bilirubin, ur Negative Negative [facility] Blood, ur 1+(A) Negative [facility] Urobilinogen, ur <2.0 <2.0 mg/dL [facility] Nitrite, ur Negative Negative [facility] Leukocyte esterase, ur 3+(A) Negative [facility] UA reflex comment Reflex to microscopic UA will be performed. [facility] Urine 01/01/2025 9:00 PM CDT 01/01/2025 9:05 PM CDT Eliazar Gar MD LAB MICROBIOLOGY - GEN ERAL ORDERABLES Final Result Performing Organization Address [facility] de Phone Number [facility] Department [place] [address] * (ABNORMAL) Urinalysis, microscopic only (01/01/2025 9:00 PM CDT) WBC, ur >50(A) 0 - 5 /HPF RBC, ur 21-50(A) 0 - 2 /HPF [facility] Bacteria, ur 4+(A) [facility] Mucous, ur Present(A) [facility] Culture Reflex Comment Reflex to urine culture will be performed. [facility] Urine 01/01/2025 9:00 PM CDT 01/01/2025 9:05 PM CDT Eliazar Gar MD LAB URINE ORDERABLES F inal Result Performing Organization Address [facility] de Phone Number [facility] Department [place] [address] * Urine culture Urine (01/01/2025 9:00 PM CDT) Report Final Report: No growth Urine 01/01/2025 9:00 PM CDT 01/01/2025 11:12 PM CDT Narrative [facility] - 01/03/2025 7:53 AM CDT Urine culture reflexed based upon urinalysis results. Testing performed by [facility] ([phone]) Eliazar Gar MD LAB MICROBIOLOGY - GEN ERAL ORDERABLES Final Result Performing Organization Address [facility]/State/ZIP Co de Phone Number ALLISON PEREZ Chrissie [facility] Department [place] [address] * Blood culture Blood Peripheral (01/01/2025 8:12 PM CDT) Report Final Report: No growth Blood (Peripheral) 01/01/2025 8:12 PM CDT 01/01/2025 8:23 PM CDT Narrative ALL[facility] WILSON - 01/06/2025 7:00 AM CDT From a [...] characteristics have been verified by the [facility]. For questions about this culture, contact the Microbiology Laboratory at [phone]. Interpretive data was last revised on 24. Eliazar Gar MD LAB MICROBIOLOGY - GEN ERAL ORDERABLES Final Result [facility] PEREZ Chrissie [facility] Department [place] [address] * CT Body Outside Consult (01/01/2025 8:03 [...] comparison with more recent study performed at [facility]. Accordingly, there will be no separate report of this study generated by a [facility] Radiologist. Dictated by: Darnell Dempsey MD The [...] comparison with more recent study performed at [facility]. Accordingly, there will be no separate report of this study generated by a [facility] Radiologist. Dictated by: Darnell Dempsey MD The radiology attending physician has personally reviewed this study, and had reviewed and/or edited this written report and agrees with it. Electronically signed by: Katharina Morgan M.D. Azra Davila MD IMG CT PROCEDURES Final Res ult * Blood culture Blood Peripheral (01/01/2025 8:03 PM CDT) Report Final Report: No growth Blood (Peripheral) 01/01/2025 8:03 PM CDT 01/01/2025 8:23 PM CDT Narrative ALL[facility] - 01/06/2025 7:00 AM CDT Draw Blood [...] characteristics have been verified by the [facility]. For questions about this culture, contact the Microbiology Laboratory at [phone]. Interpretive data was last revised on 24. Eliazar Gar MD LAB MICROBIOLOGY - GEN ERAL ORDERABLES Final Result [facility]ISON [facility] Department of [place] [address] * Sepsis Lactate w/ Reflex (01/01/2025 7:51 PM CDT) [facility] [address] Sepsis Lactate 0.8 0.7 - 2.0 mmol/L Blood 01/01/2025 7:51 PM CDT 01/01/2025 8:19 PM CDT Eliazar Gar MD LAB BLOOD ORDERABLES F inal Result [facility] Department [place] [address] * eGFR (01/01/2025 7:51 PM CDT) Pathologist [facility] eGFR 81 >=60 mL/min/1. 73 m2 Comment: [...] MD LAB BLOOD ORDERABLES F inal Result [facility] One [facility] Department [place] [address] * (ABNORMAL) Differential, auto (01/01/2025 7:51 PM CDT) Neutrophil abs 16.92(H) 1.50 - 6.50 K/cumm Imm gran abs 0.20(H) 0.00 - 0.10 K/cumm [facility] Lymphocyte abs 0.56(L) 0.80 - 3.30 K/cumm [facility] Monocyte abs 0.37 0.20 - 0.80 K/cumm [facility] Eosinophil abs 0.00 0.00 - 0.50 K/cumm [facility] Basophil abs 0.02 0.00 - 0.10 K/cumm [facility] Neutrophil pct 93.7 % [facility] Comment: Interpretive Data Percent cell count reference ranges are not reported, since discordance with absolute values may lead to misinterpretation of CBC data. Current Interpretive Data was last revised on 2017. Imm gran pct 1.1 % [facility] Comment: Interpretive Data Percent cell count reference ranges are not reported, since discordance with absolute values may lead to misinterpretation of CBC data. Current Interpretive Data was last revised on 2017. Lymphocyte pct 3.1 % [facility] Comment: Interpretive Data Percent cell count reference ranges are not reported, since discordance with absolute values may lead to misinterpretation of CBC data. Current Interpretive Data was last revised on 2017. Monocyte pct 2.0 % [facility] Comment: Interpretive Data Percent cell count reference ranges are not reported, since discordance with absolute values may lead to misinterpretation of CBC data. Current Interpretive Data was last revised on 2017. Eosinophil pct 0.0 % [facility] Comment: Interpretive Data Percent cell count reference ranges are not reported, since discordance with absolute values may lead to misinterpretation of CBC data. Current Interpretive Data was last revised on 2017. Basophil pct 0.1 % [facility] Comment: Interpretive Data Percent cell count reference ranges are not reported, since discordance with absolute values may lead to misinterpretation of CBC data. Current Interpretive Data was last revised on 2017. Blood 01/01/2025 7:51 PM CDT 01/01/2025 8:54 PM CDT Eliazar Gar MD LAB BLOOD ORDERABLES F inal Result [facility] One [facility] Department [place] [address] * (ABNORMAL) CBC with auto differential (01/01/2025 7:51 PM CDT) WBC 18.07(H) 3.80 - 9.90 K/cumm Hgb 10.1(L) 13.0 - 17.5 g/dL [facility] Hct 30.5(L) 38.9 - 50.3 % [facility] Plt 183 150 - 400 K/cumm [facility] MPV 10.7 9.1 - 12.3 fL [facility] RBC 3.57(L) 4.30 - 5.80 M/cumm [facility] MCV 85.4 81.3 - 96.4 fL [facility] MCH 28.3 27.1 - 33.3 pg [facility] MCHC 33.1 32.3 - 35.7 g/dL [facility] RDW CV 17.0(H) 11.1 - 14.9 % [facility] RDW SD 51.5(H) 35.7 - 48.1 fL [facility] NRBC abs 0.00 0.00 - 0.01 K/cumm [facility] Blood 01/01/2025 7:51 PM CDT 01/01/2025 8:54 PM CDT Eliazar Gar MD LAB BLOOD ORDERABLES F inal Result Performing Organization Address [facility] Co de Phone Number [facility] Department of [place] [address] * Type and screen (01/01/2025 7:51 PM CDT) Pathologist [facility] Lita, indirect Negative ABO Rh AB Negative [facility] Blood 01/01/2025 7:51 PM CDT 01/01/2025 8:38 PM CDT Narrative [facility] - 01/01/2025 9:35 PM CDT Has the patient had Daratumumab or Isatuximab in the past 6 months?->Unknown Eliazar Gar MD LAB BLOOD BANK TEST OR DERABLES Final Result [facility] of [employer] [place] [address] * (ABNORMAL) Comprehensive metabolic panel (01/01/2025 7:51 PM CDT) Pathologist [facility] Sodium 140 135 - 145 mmol/L Potassium, pl 4.3 3.3 - 4.9 mmol/L [facility] Chloride 108 97 - 110 mmol/L [facility] CO2 23 22 - 32 mmol/L [facility] Anion gap 9 2 - 15 mmol/L [facility] BUN 23 6 - 25 mg/dL [facility] Creatinine 0.94 0.80 - 1.30 mg/dL [facility] Glucose 166 70 - 199 mg/dL [facility] Comment: Interpretive Data Fasting glucose >/= 126 [...] 2022. Calcium 8.3(L) 8.5 - 10.3 mg/dL [facility] Bilirubin, total 0.5 0.1 - 1.2 mg/dL [facility] Protein, pl 5.7(L) 6.5 - 8.5 g/dL [facility] Albumin 2.8(L) 3.5 - 5.0 g/dL [facility] Alk phos 78 40 - 130 Units/L [facility] ALT 19 7 - 55 Units/L [facility] AST 15 10 - 50 Units/L [facility] Blood 01/01/2025 7:51 PM CDT 01/01/2025 8:23 PM CDT us Eliazar Gar MD LAB BLOOD ORDERABLES F inal Result [facility] One [facility] [place] [address] * POCT glucose (01/01/2025 7:49 PM CDT) [facility] Signature Glucose, POC 184 70 - 199 mg/dL Blood 01/01/2025 7:49 PM CDT 01/01/2025 7:49 PM CDT us Azra Davila MD LAB POCT ORDERABLES - DEVIC E Final Result [facility] Dickens [facility] Department [place] [address] * eGFR (12/18/2024 4:30 PM CDT) eGFR [...] CDT 12/18/2024 5:32 PM CDT us Willard Ashlyn Gilbert MD LAB BLOOD ORDERABLES Final R esult [facility] [address] Department [place] [address] * (ABNORMAL) Differential, auto (12/18/2024 4:30 PM CDT) Neutrophil abs 18.17(H) 1.50 - 6.50 K/cumm Imm gran abs 0.25(H) 0.00 - 0.10 K/cumm [facility] Lymphocyte abs 0.78(L) 0.80 - 3.30 K/cumm [facility] Monocyte abs 0.83(H) 0.20 - 0.80 K/cumm [facility] Eosinophil abs 0.07 0.00 - 0.50 K/cumm [facility] Basophil abs 0.04 0.00 - 0.10 K/cumm [facility] Neutrophil pct 90.3 % [facility] Comment: Interpretive Data Percent cell count reference ranges are not reported, since discordance with absolute values may lead to misinterpretation of CBC data. Current Interpretive Data was last revised on 2017. Imm gran pct 1.2 % [facility] Comment: Interpretive Data Percent cell count reference ranges are not reported, since discordance with absolute values may lead to misinterpretation of CBC data. Current Interpretive Data was last revised on 2017. Lymphocyte pct 3.9 % [facility] Comment: Interpretive Data Percent cell count reference ranges are not reported, since discordance with absolute values may lead to misinterpretation of CBC data. Current Interpretive Data was last revised on 2017. Monocyte pct 4.1 % [facility] Comment: Interpretive Data Percent cell count reference ranges are not reported, since discordance with absolute values may lead to misinterpretation of CBC data. Current Interpretive Data was last revised on 2017. Eosinophil pct 0.3 % [facility] Comment: Interpretive Data Percent cell count reference ranges are not reported, since discordance with absolute values may lead to misinterpretation of CBC data. Current Interpretive Data was last revised on 2017. Basophil pct 0.2 % [facility] Comment: Interpretive Data Percent cell count reference ranges are not reported, since discordance with absolute values may lead to misinterpretation of CBC data. Current Interpretive Data was last revised on 2017. Blood 12/18/2024 4:30 PM CDT 12/18/2024 5:32 PM CDT us Willard Ashlyn Gilbert MD LAB BLOOD ORDERABLES Final R esult [facility] [address] Department [place] [address] * (ABNORMAL) CBC with auto differential (12/18/2024 4:30 PM CDT) WBC 20.14(H) 3.80 - 9.90 K/cumm Hgb 10.4(L) 13.0 - 17.5 g/dL [facility] Hct 32.9(L) 38.9 - 50.3 % [facility] Plt 225 150 - 400 K/cumm [facility] MPV 10.1 9.1 - 12.3 fL [facility] RBC 3.63(L) 4.30 - 5.80 M/cumm [facility] MCV 90.6 81.3 - 96.4 fL [facility] MCH 28.7 27.1 - 33.3 pg [facility] MCHC 31.6(L) 32.3 - 35.7 g/dL [facility] RDW CV 15.0(H) 11.1 - 14.9 % [facility] RDW SD 49.7(H) 35.7 - 48.1 fL [facility] NRBC abs 0.10(H) 0.00 - 0.01 K/cumm [facility] Blood 12/18/2024 4:30 PM CDT 12/18/2024 5:32 PM CDT Willardgabby Gilbert MD LAB BLOOD ORDERABLES Final R esult Performing Organization Address [facility] Co de Phone Number [facility] [address] [place], [place] [id number] * Vancomycin level trough (12/18/2024 4:30 PM CDT) Pathologist [facility] Vancomycin trough 14.8 10.0 - 20.0 mcg/mL Blood 12/18/2024 4:30 PM CDT 12/18/2024 5:33 PM CDT Willardgabby Gilbert MD LAB BLOOD ORDERABLES Final R esult Performing Organization Address City/[facility]/ZIP Co de Phone Number [facility] [address] Department of [place] [address] * (ABNORMAL) Comprehensive metabolic panel (12/18/2024 4:30 [...] PM CDT 12/18/2024 5:32 PM CDT us Willardgabby Gilbert MD LAB BLOOD ORDERABLES Final R esult [facility] [address] Department [place] [address] * Cardiology Document Scan (12/13/2024 4:38 PM CDT) Anatomical Region Laterality Modality Other us Leonardo Molina MD CV CARDIAC SERVICES PRO CEDURES Final Result * Cardiology Document Scan (12/13/2024 4:02 PM CDT) Anatomical Region Laterality Modality Other us Leonardo Molina MD CV CARDIAC SERVICES PRO CEDURES Final Result * Cardiology Document Scan (12/11/2024 12:08 PM CDT) Anatomical Region Laterality Modality Other us Leonardo Molina MD CV CARDIAC SERVICES PRO CEDURES Final Result * POCT glucose (11/27/2024 3:11 PM CDT) Glucose, POC 151 70 - 199 mg/dL Blood 11/27/2024 3:11 PM CDT 11/27/2024 3:11 PM CDT Reyna Morgan MD LAB POCT ORDERABLES - DEVICE Fin al Result Performing Organization Address City/State/[facility] Co de Phone Number [facility] Department [place] [address] * Surgical pathology (11/27/2024 2:22 PM CDT) Tissue (Bladder, resection) 11/27/2024 2:22 PM CDT Narrative PATHOLOGY [facility] - 12/03/2024 10:20 AM CDT EPIC results best viewed via link to PDF [facility] Angelika Mercado [facility] [place] [address] Note to Patients: This report may contain [...] Gender: M : 1940 (Age: 84) Address: [facility] [address] [place] [address] Hospital #: [id number] Taken:11/27/2024 Received:11/27/2024 Reported: 12/03/2024 [facility] Service: Surgery Location: [facility] OR [facility] Physician(s): Reyna Morgan M.D. WillardThalia Amato M.D. 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 Jar 0. rxr/11/28/2024 15:03 PA(s): Priya Guthrie MS, MARSISA(ASCP)CM By this signature, I attest that the above diagnosis is based upon my personal examination of the slides(and/or other material). Addenda/Procedures The performance characteristics of some immunohistochemical stains, fluorescence in-situ hybridization tests and immunophenotyping by flow cytometry cited in this report (if any) were determined by the Surgical Pathology and Flow Cytometry Departments at [facility] as part of an ongoing quality analyst/technical writer program and in compliance with federally mandated [...] Pathology and Flow Cytometry Departments of [facility]. It has not been cleared or approved by the U. S. Food and Drug Administration. IMAGES AND SCANNED DOCUMENTS, IF INCLUDED, ONLY VIEWABLE IN PDF VERSION OF REPORT Reyna Morgan MD LAB PATHOLOGY ORDERABLES Final R esult Performing Organization Address [facility]/ZIP Co de Phone Number PATHOLOGY [facility] 3rd Floor [place], [place] [phone] * POCT glucose (11/27/2024 1:03 PM CDT) Glucose, POC 155 70 - 199 mg/dL Blood 11/27/2024 1:03 PM CDT 11/27/2024 1:03 PM CDT Reyna Morgan MD LAB POCT ORDERABLES - DEVICE Fin al Result Performing Organization Address [facility] Co de Phone Number [facility] One [facility] Department [place] [address] * Post-Discharge Dressing Care (11/18/2024 12:17 PM [...] care performed per order. us Venus Lama [facility] Clara wilson Result * Cytology (10/24/2024 9:50 AM CDT) Fluid (Urine, Voided (Cytology)) 10/24/2024 9:50 AM CDT 10/24/2024 4:39 PM CDT Narrative PATHOLOGY [facility] - 10/29/2024 2:38 PM CDT EPIC results best viewed via link to PDF [facility] Angelika Mercado [facility] [place] [address] Note to Patients: This report may contain [...] Gender: M : 1940 (Age: 84) Address: [address] [place], [place] [address] Hospital #: [id number] Taken:10/24/2024 Received:10/24/2024 Reported: 10/29/2024 Patient Type: [facility] SPECIMEN Service: UNKNOWN Location: Physician(s): Reyna [...] Golden Hansen DO 10/29/2024 14:38:40 Azar Borrero [facility](ASCP) Gross Description A. Urine, bladder, void: 100 [...] Pathology and Flow Cytometry Departments at [facility] as part of an ongoing quality analyst/technical writer program and in compliance with federally mandated [...] Pathology and Flow Cytometry Departments of [facility]. It has not been cleared or approved by the U. S. Food and Drug Administration. us Reyna Morgan MD LAB CYTOLOGY ORDERABLES Final Re sult PATHOLOGY [facility] 3rd Floor [place], [place] [phone] * Urine culture Urine, clean voided (10/24/2024 9:50 AM CDT) Report Final Report: No growth Urine, clean voided 10/24/2024 9:50 AM CDT 10/24/2024 3:08 PM CDT Latisha COOPER [facility] - 10/25/2024 3:56 PM CDT Testing performed by [facility] ([phone]) us Reyna Morgan MD LAB MICROBIOLOGY - GENERAL ORDER KENDY Final Result [facility] One [facility] Department [place] [address] * Post-Discharge Dressing Care (10/17/2024 1:31 PM [...] revised on 2018. HDL 39(L) >=40 mg/dL [facility] Comment: Interpretive Data Ages < or [...] on 2018. LDL, calculated 56 <=129 mg/dL [facility] Comment: Interpretive Data Ages < or [...] revised on 2018. Non-HDL Cholesterol 83 mg/dL [facility] Comment: Interpretive Data Ages < or [...] last revised on 2018. Chol/HDL ratio 3 [facility] Blood Venous blood specimen / Unknown 01/25/2024 11:36 AM CDT 01/25/2024 12:20 PM CDT us Melva Riggs MD LAB BLOOD ORDERABLES Final R esult [facility] Department [place] [address] from Last 3 Months or Most Recently Relevant to Health Maintenance Insurance [employer] MEDICARE ADVANTAGE [facility] MEDICARE [facility] MEDIC[facility] Address: [address] [place] [address] [facility] MEDICARE Advance Directives For more information, please contact: [phone] * LIMITED - No CPR (Latest Code [...] 1:42 PM 07/25/2023 8:43 PM Care Teams 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
[2025-01-12 15:50] LABS: Alanine Aminotransferase 35 U/L (6-50); Albumin Level 2.4 g/dL (3.5-5.1); Alkaline Phosphatase 74 U/L (38-126); Anion Gap 8 mmol/L (4-12); Aspartate Amino Transferase 25 U/L (17-59); Bilirubin,Total 0.6 mg/dL (0.2-1.3); Blood Urea Nitrogen 26 mg/dL (9-20); Calcium 8.3 mg/dL (8.4-10.2); Carbon Dioxide 23 mmol/L (22-30); Chloride 101 mmol/L (98-107); Estimated CRCL calculation 55 ml/min; Estimated Glomerular Filt Rate > 60; Glucose 155 mg/dL (65-110); INR 1.8; Magnesium 2.0 mg/dL (1.6-2.3); Potassium 4.5 mmol/L (3.4-5.0); Prothrombin Time 20.7 Seconds (11.1-14.7); Sodium 132 mmol/L (137-145); Total Protein 5.2 g/dL (6.3-8.2)
[2025-01-12 15:51] LABS: Partial Thromboplastin Time 40.7 Seconds (22.3-36.8)
[2025-01-12 16:01] LABS: NT Pro B Type Natriuretic Pept 763 pg/mL (19.9-100); Troponin I 0.015 ng/mL (0.000-0.034)
[2025-01-12] MEDS: SODIUM CHLORIDE 0.9% IV 1,000 ML 999 ML IV CONT (16:37)
[2025-01-12] MEDS: MORPHINE SULFATE (*CRX) 4 MG/ML INJ 2 MG IV PUSH (16:37)
[2025-01-12 16:40] VITALS: BP 110/58; PULSE 107; RESP 18; O2SAT 98
--- NOTE | 2025-01-12 17:03 | ED_ITS ---
HPI - General Adult General Chief complaint: Chest Pain Stated complaint: cp Time Seen by Provider: 01/12/25 15:00 History of Present Illness HPI narrative: Patient is a 84-year-old gentleman who presents emergency department with chief complaint of chest pain patient is resident [facility] the family is talking about making the patient comfort measures. The patient today woke screamed out that he was having pain in his chest and reports that they gave him a nitro and did not help his pain the facility reported that they need to transport him for evaluation as he could have acute coronary syndrome or pulmonary embolism patient currently states he is not really having a lot of pain Related Data Home Medications ?Medication ?Instructions ?Recorded ?Confirmed ?Last Taken ?Type aspirin 81 mg tablet,delayed 81 mg PO DAILY 08/06/24 12/09/24 12/09/24 History release (Adult Low Dose Aspirin) bacitracin 500 unit/gram topical 1 applic topical BID 08/21/24 12/09/24 12/09/24 History ointment dibucaine 1 % topical ointment 1 applic topical QID PRN Pain of 08/21/24 12/09/24 Unknown History groin ulcer triamcinolone acetonide 0.1 % 1 applic topical DAILY 08/21/24 12/09/24 Unknown History topical cream cholecalciferol (vitamin D3) 50 2,000 unit PO DAILY 12/09/24 12/09/24 Unknown History mcg (2,000 unit) capsule prednisone 20 mg tablet 40 mg PO DAILY 12/09/24 12/09/24 12/09/24 History alendronate 70 mg tablet 70 mg PO WEEKLY 12/10/24 12/10/24 12/03/24 History Allergies Allergy/AdvReac Type Severity Reaction Status Date / Time finasteride Allergy Intermediate Hives Verified 01/12/25 15:15 JOSHUA Inhibitors Allergy Unknown Cough Verified 01/12/25 15:15 ARB-Angiotensin Receptor Allergy Unknown Cough Verified 01/12/25 15:15 Antagonist lisinopril Allergy Unknown Cough Verified 01/12/25 15:15 Review of Systems 2 Review of Systems: A 10 system review of systems was completed on the patient and is negative except for what is stated in the HPI. Nursing and ancillary documentation was reviewed. 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 The patient's was told that he no longer needed CPAP Surgical History Surgical History History of colon surgery Cholesteatoma of attic of left ear History of coronary artery stent placement (~2014) X2 or 3 History of skin graft With skin flap History of biopsy Incisional biopsies nonhealing wound buttocks 02/02/2022 History of incision and drainage i&d pilonidal cyst 09/06/21 Hx of CABG (~2003) 2 vessel MASSEY to LAD saphenous vein graft to obtuse marginal Family History Family History Sibling Carcinoma of colon Family history of diabetes mellitus in first degree relative Family history of coronary artery disease Family history of malignant neoplasm of breast in first degree relative Father Family history of coronary artery disease Mother , pneumonia Pneumonia Other Diabetes mellitus Family history of arthritis Family history of congenital heart disease Family history of heart disease in male family member before age 55 Family history of malignant neoplasm Social History Social History Social History: The patient lives with his of over 40 years. He has 2 biologic children and 1 stepchild. 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 He has a distant history of smoking 20 pack per year. He quit smoking in the in then chewed tobacco for another 10 years and quit in 1991. He used to drink a few alcoholic beverages a month but only rarely drinks alcohol now. Code status: DNR/DNI Healthcare power of cover creaser: Smoking packs per day: 2.5 Smoking cigarettes per day: 50.0 Years smoked: 10 Smoking pack-years: 25.00 Smoking status: Former smoker Second hand tobacco smoke exposure: Yes Alcohol intake: current Drinks per week: 1 Alcohol use details: socially Substance use: never Substance use type: does not use Do You Feel Safe in your Home?: Yes Lack of Transportation: No Lack of Food: Never True Current Housing: I Have Housing Concerned About Future Housing: No Difficulty Paying Gas/Electric Bills: No Difficulty Paying for Meds: No Currently Unemployed: No Education: Master's Degree or Higher Difficulty w/ Childcare or Family Care: No Living arrangements: with family Additional living arrangements comments: lives with Occupation/Education: retired 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 HEAD: Normocephalic, atraumatic. EYES: PERRLA and EOMI. ENT: Nares clear, no rhinorrhea or epistaxis. Mucous membranes moist. NECK: Supple. CHEST: Clear to auscultation. No respiratory distress. HEART: Regular rate and rhythm. No murmur heard. Normal peripheral pulses. ABDOMEN: Soft, nontender, nondistended, normal active bowel sounds. EXTREMITIES: Normal range of motion. No edema. SKIN: Warm, dry, no rash. NEURO: No focal deficits. Alert and oriented x3. PSYCH: Normal mood and affect. Course Vital Signs Vital signs: Vital Signs Temperature 36.4 C 01/12/25 15:01 Pulse Rate 110 H 01/12/25 15:01 Respiratory Rate 19 01/12/25 15:01 Blood Pressure 106/70 01/12/25 15:01 Pulse Oximetry 99 01/12/25 15:01 Oxygen Delivery Room Air 01/12/25 15:01 Temperature 36.4 C 01/12/25 15:01 Pulse Rate 107 H 01/12/25 16:40 Respiratory Rate 18 01/12/25 16:40 Blood Pressure 110/58 L 01/12/25 16:40 Pulse Oximetry 98 01/12/25 16:40 Oxygen Delivery Room Air 01/12/25 15:08 Medical Decision Making [facility] Narrative Medical decision making narrative: Differential diagnosis includes ACS, pulmonary embolism, electrolyte abnormality The patient had elevated lactate 5.0 In discussion with the family they do not want any invasive procedures done CT scan showed evidence of large pulmonary embolism with large clot burden and right heart strain It was discussed with the patient's family possibility of transfer to a facility with Interventional capabilities for pulmonary embolism as there is a significant clot burden and heart strain the patient's family stated they do not want invasive procedure but do want the patient to be anticoagulated heparin was ordered for the patient and the case will be discussed with the hospitalist Vital Signs Vital Signs: Vital Signs Temperature 36.4 C 01/12/25 15:01 Pulse Rate 110 H 01/12/25 15:01 Respiratory Rate 19 01/12/25 15:01 Blood Pressure 106/70 01/12/25 15:01 Pulse Oximetry 99 01/12/25 15:01 Oxygen Delivery Room Air 01/12/25 15:01 Temperature 36.4 C 01/12/25 15:01 Pulse Rate 107 H 01/12/25 16:40 Respiratory Rate 18 01/12/25 16:40 Blood Pressure 110/58 L 01/12/25 16:40 Pulse Oximetry 98 01/12/25 16:40 Oxygen Delivery Room Air 01/12/25 15:08 Lab Data 01/12/25 15:35 01/12/25 15:35 Labs: Lab Results 01/12/25 01/12/25 01/12/25 Range/Units 15:35 15:35 15:35 WBC 12.1 H (4.5-10.0) K/mm3 RBC 2.81 L (4.6-6.20) M/mm3 Hgb 7.9 L (14.0-18.0) g/dL Hct 25.0 L (42.0-52.0) % MCV 89.0 (80-100) fl MCH 28.1 (26-34) pg MCHC 31.6 L (32-36) g/dl RDW 18.1 H (11.5-14.5) % Plt Count 106 L (150-375) k/mm3 MPV 9.2 (7.4-10.4) fl Immature Gran % (Auto) 0.8 H (0-0.5) % Neut % (Auto) 86.7 H (45.5-73.1) % Lymph % (Auto) 9.6 L (18.3-44.2) % [place] % (Auto) 2.6 (2.6-8.5) % Eos % (Auto) 0.1 (0-4.4) % Baso % (Auto) 0.2 (0.2-1.2) % Lymph # (Auto) 1.16 (0.9-3.2) K/mm3 [place] # (Auto) 0.3 (0.1-0.6) K/mm3 Eos # (Auto) 0.0 (0-0.3) K/mm3 Baso # (Auto) 0.0 (0.0-0.1) K/mm3 Abs Immat Gran (auto) 0.10 H (0.00-0.031) K/mm3 Absolute Neuts (auto) 10.5 H (1.3-6.7) K/mm3 Absolute Nucleated RBC 0.020 H (0.0-0.012) K/mm3 Nucleated RBC % 0.2 (0.0-0.2) % PT 20.7 H (11.1-14.7) Seconds INR 1.8 APTT 40.7 H (22.3-36.8) Seconds Sodium 132 L (137-145) mmol/L Potassium 4.5 (3.4-5.0) mmol/L Chloride 101 (98-107) mmol/L Carbon Dioxide 23 (22-30) mmol/L Anion Gap 8 (4-12) mmol/L BUN 26 H (9-20) mg/dL Creatinine 1.04 (0.7-1.3) mg/dL Estim Creat Clear Calc 55 ml/min Estimated GFR > 60 (59 - ) Glucose 155 H (65-110) mg/dL Lactic Acid 5.0 H* (0.7-2.0) mmol/L Calcium 8.3 L (8.4-10.2) mg/dL Magnesium 2.0 Cancelled (1.6-2.3) mg/dL Total Bilirubin 0.6 (0.2-1.3) mg/dL AST 25 (17-59) U/L ALT 35 (6-50) U/L Alkaline Phosphatase 74 (38-126) U/L Troponin I 0.015 Cancelled (0.000-0.034) ng/mL NT-Pro-B Natriuret Pep 763 H (19.9-100) pg/mL Total Protein 5.2 L (6.3-8.2) g/dL Albumin 2.4 L (3.5-5.1) g/dL Urine Color (Yellow) Urine Appearance (Clear) Urine pH (5.0-9.0) Ur Specific [place] (1.001-1.035) Urine Protein (Negative) mg/dL Urine Glucose (UA) (Negative) mg/dL Urine Ketones (Negative) mg/dL Ur Blood (Man) (Negative) Urine Nitrate (Negative) Urine Bilirubin (Negative) Urine Urobilinogen (<2.0) mg/dL Leukocyte Esterase Rfl (Negative) JUAN FARNCISCO/UL Urine RBC (0-2) /hpf Urine WBC (0-3) /hpf Ur Squamous Epith Cells (Few) /hpf Urine Bacteria /hpf Urine Casts Urine Yeast (Budding) (None) /hpf 01/12/25 01/12/25 Range/Units 16:43 17:54 WBC (4.5-10.0) K/mm3 RBC (4.6-6.20) M/mm3 Hgb (14.0-18.0) g/dL Hct (42.0-52.0) % MCV (80-100) fl MCH (26-34) pg MCHC (32-36) g/dl RDW (11.5-14.5) % Plt Count (150-375) k/mm3 MPV (7.4-10.4) fl Immature Gran % (Auto) (0-0.5) % Neut % (Auto) (45.5-73.1) % Lymph % (Auto) (18.3-44.2) % [place] % (Auto) (2.6-8.5) % Eos % (Auto) (0-4.4) % Baso % (Auto) (0.2-1.2) % Lymph # (Auto) (0.9-3.2) K/mm3 [place] # (Auto) (0.1-0.6) K/mm3 Eos # (Auto) (0-0.3) K/mm3 Baso # (Auto) (0.0-0.1) K/mm3 Abs Immat Gran (auto) (0.00-0.031) K/mm3 Absolute Neuts (auto) (1.3-6.7) K/mm3 Absolute Nucleated RBC (0.0-0.012) K/mm3 Nucleated RBC % (0.0-0.2) % PT (11.1-14.7) Seconds INR APTT (22.3-36.8) Seconds Sodium (137-145) mmol/L Potassium (3.4-5.0) mmol/L Chloride (98-107) mmol/L Carbon Dioxide (22-30) mmol/L Anion Gap (4-12) mmol/L BUN (9-20) mg/dL Creatinine (0.7-1.3) mg/dL Estim Creat Clear Calc ml/min Estimated GFR (59 - ) Glucose (65-110) mg/dL Lactic Acid Pending (0.7-2.0) mmol/L Calcium (8.4-10.2) mg/dL Magnesium (1.6-2.3) mg/dL Total Bilirubin (0.2-1.3) mg/dL AST (17-59) U/L ALT (6-50) U/L Alkaline Phosphatase (38-126) U/L Troponin I Pending (0.000-0.034) ng/mL NT-Pro-B Natriuret Pep (19.9-100) pg/mL Total Protein (6.3-8.2) g/dL Albumin (3.5-5.1) g/dL Urine Color Yellow (Yellow) Urine Appearance Turbid H (Clear) Urine pH 5.5 (5.0-9.0) Ur Specific [place] 1.028 (1.001-1.035) Urine Protein 2+ H (Negative) mg/dL Urine Glucose (UA) 3+ H (Negative) mg/dL Urine Ketones Trace H (Negative) mg/dL Ur Blood (Man) 3+ H (Negative) Urine Nitrate Negative (Negative) Urine Bilirubin Negative (Negative) Urine Urobilinogen 0.2 (<2.0) mg/dL Leukocyte Esterase Rfl 3+ H (Negative) JUAN FRANCISCO/UL Urine RBC >100 H (0-2) /hpf Urine WBC >100 H (0-3) /hpf Ur Squamous Epith Cells None seen (Few) /hpf Urine Bacteria Rare /hpf Urine Casts 3-5 Urine Yeast (Budding) Present H (None) /hpf Critical Care Time Critical Care Time Critical Care Time: Yes Total Critical Care Time: 35 Discharge Plan Discharge Clinical Impression: Pulmonary embolism UTI (urinary tract infection) Qualifiers: Urinary tract infection type: acute cystitis Hematuria presence: with hematuria Qualified Code(s): N30.01 - Acute cystitis with hematuria Patient Disposition: Still a Patient Condition: Stable Patient Language: Tristanian Prescriptions: No Action nitroglycerin 0.4 mg tablet, sublingual 0.4 mg SUBLINGUAL Q5M PRN (Reason: chest pain) Qty: 25 0RF Rx Instructions: until response; do not exceed 3 doses per episode aspirin [Adult Low Dose Aspirin] 81 mg tablet,delayed release (DR/EC) 81 mg PO DAILY bacitracin 500 unit/gram ointment 1 applic topical BID Patient Comments: from principle software engineer triamcinolone acetonide 0.1 % cream 1 applic topical DAILY Patient Comments: from principle software engineer dibucaine 1 % ointment 1 applic topical QID PRN (Reason: Pain of groin ulcer) Patient Comments: from principle software engineer prednisone 20 mg tablet 40 mg PO DAILY Patient Comments: for 14 days cholecalciferol (vitamin D3) 50 mcg (2,000 unit) capsule 2,000 unit PO DAILY alendronate 70 mg tablet 70 mg PO WEEKLY Patient Comments: pt takes on TUESDAYS amoxicillin-pot clavulanate 875-125 mg tablet 1 tablet PO Q12H 8 Days Qty: 16 0RF Saccharomyces boulardii [Florastor] 250 mg Capsule 250 mg PO TID 30 Days Qty: 90 0RF vancomycin 1.5 gram Recon Soln 1,500 mg IV Q24H 35 Days Qty: 52.5 0RF nystatin 100,000 unit/gram powder 1 applic topical BID Qty: 30 0RF nystatin 100,000 unit/gram cream 1 applic topical BID Qty: 30 0RF donepezil [Aricept] 5 mg tablet 5 mg PO QHS Qty: 30 3RF amlodipine 5 mg tablet 5 mg PO DAILY Qty: 90 1RF metoprolol succinate 50 mg tablet extended release 24 hr 50 mg PO DAILY Qty: 90 1RF doxazosin 2 mg tablet See Rx Instructions .ROUTE .COMPLEX Qty: 90 1RF Dose Instruction: TAKE 1 TABLET BY MOUTH EVERY DAY AT BEDTIME Rx Instructions: TAKE 1 TABLET BY MOUTH EVERY DAY AT BEDTIME Jardiance 25 mg tablet 25 mg PO QAM Qty: 90 1RF metformin 500 mg tablet extended release 24 hr See Rx Instructions .ROUTE .COMPLEX Qty: 360 0RF Dose Instruction: TAKE 4 TABLETS BY MOUTH ONCE DAILY IN THE MORNING Rx Instructions: TAKE 4 TABLETS BY MOUTH ONCE DAILY IN THE MORNING rosuvastatin 40 mg tablet 40 mg PO DAILY Qty: 90 3RF glimepiride 1 mg tablet 1 mg PO QAM Qty: 90 1RF Rx Instructions: administer with breakfast meloxicam 15 mg tablet See Rx Instructions .ROUTE .COMPLEX Qty: 90 1RF Dose Instruction: Take 1 tablet by mouth once daily Rx Instructions: Take 1 tablet by mouth once daily dutasteride 0.5 mg capsule 0.5 mg PO DAILY Qty: 90 0RF levothyroxine 75 mcg tablet 75 mcg PO DAILY Qty: 90 1RF fluticasone propionate [Flonase Allergy Relief] 50 mcg/actuation spray,suspension 1 spray intranasal DAILY Qty: 16 0RF Rx Instructions: administer to wound daily hydrocodone-acetaminophen 5-325 mg tablet 1 tablet PO Q8H PRN (Reason: pain) Qty: 30 0RF Follow-up/Referrals: Willard Gilbert MD [Primary Care Provider] - Time of Disposition: 17:37
[2025-01-12 17:37] LABS: Add Urine Microscopic? YES; Appearance Urine Turbid (Clear); Budding Yeast Urine Present /hpf; Glucose Urine UA 3+ mg/dL (Negative); Leukocyte Esterase Ur 3+ LEU/UL (Negative); Nitrate Urine Negative (Negative); Specific Grav Ur 1.028 (1.001-1.035)
[2025-01-12] MEDS: HEPARIN SOD/D5W 100 UNITS/ML 25,000 UNITS/250 ML BAG 15 UNITS IV CONT (18:05)
[2025-01-12 18:39] LABS: Troponin I 0.021 ng/mL (0.000-0.034)
[2025-01-12 18:45] VITALS: BP 114/62; PULSE 108; RESP 20; O2SAT 97
--- NOTE | 2025-01-12 20:41 | P.HP_ITS ---
H&P: HPI History of Present Illness Date/Time: 01/12/25 22:00 Chief Complaint: Chest pain Narrative: 84-year-old male with a past medical history of dementia, essential hypertension, hypothyroidism, type 2 diabetes mellitus, pyoderma gangrenosum and urethral cell carcinoma with recent TURBT resulting in gross hematuria with hospitalization early December and subsequent recurrent hospitalization in late December for bilateral DVTs who presented to the ER via EMS from [facility] due to chest pain. A by the time patient arrived to the ER he was not complaining of any chest pain. At the time of my evaluation patient had no complaints at all. He reportedly woke up screaming due to chest pain and the patient received nitroglycerin. After nitro at the long term the patient's blood pressures dropped to 70s over 40s. The nitro did not help the patient's chest pain and he was brought in for evaluation. Initially the patient was found to be tachycardic but was not having any desaturations. As far as I can tell from the long term records and review of records from our prior hospitalization early in December the patient had not been on Eliquis at that time. senior living records indicate that the patient was admitted to their facility on January 09. So sometime between the patient's discharge from a Hospital on the 17 of December and January 09 the patient evidently went back to [facility] and was diagnosed with bilateral lower extremity DVTs. He was discharged on Eliquis. Although I can not confirm this with the patient as he is only alert oriented to person and the fact that he is in the hospital. He believes that he is at [facility] in that the month is August and that the year is 2027. He otherwise denies any acute symptoms. Patient has a chronic indwelling Nuñez catheter. Patient had normal echocardiogram 12/10/2024 with EF of 55-60, normal right ventricular size and systolic function without valvular abnormalities. In the ER labs demonstrated acute on chronic anemia with hemoglobin decreased from 9.9 down to 7.9, mild thrombocytopenia, INR of 1.8, lactic acid of 5 a trended down to 4.3, normal troponin, chronically low serum albumin and total protein, turbid urine with 2+ protein 3+ glucose trace ketones 3+ blood 3+ esterase greater than 100 RBC greater than 100 WBC and budding yeast with rare bacteria. CT of the chest demonstrated multiple pulmonary emboli with large clot burden and evidence of right heart strain, trace right and small left pleural effusion she, 4 mm right upper lobe pulmonary nodule, gallbladder hydrops, innumerable pancreatic cysts. Patient family refused transfer to tertiary care for intervention. The family stated they do not want invasive procedures. They are willing to try heparin drip. It sounds as if the patient's family has been considering transition to palliative care. Review of Systems 2 Review of Systems: Review of systems unobtainable due to patient's dementia [facility] Past Medical History Medical History Chronic pain 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 The patient's was told that he no longer needed CPAP Surgical History Surgical History History of colon surgery Cholesteatoma of attic of left ear History of coronary artery stent placement (~2014) X2 or 3 History of skin graft With skin flap History of biopsy Incisional biopsies nonhealing wound buttocks 02/02/2022 History of incision and drainage i&d pilonidal cyst 09/06/21 Hx of CABG (~2003) 2 vessel MASSEY to LAD saphenous vein graft to obtuse marginal Family History Family History Sibling Carcinoma of colon Family history of diabetes mellitus in first degree relative Family history of coronary artery disease Family history of malignant neoplasm of breast in first degree relative Father Family history of coronary artery disease Mother , pneumonia Pneumonia Other Diabetes mellitus Family history of arthritis Family history of congenital heart disease Family history of heart disease in male family member before age 55 Family history of malignant neoplasm Social History Social History Social History: The patient lives with his of over 40 years. He has 2 biologic children and 1 stepchild. 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 He has a distant history of smoking 20 pack per year. He quit smoking in the in then chewed tobacco for another 10 years and quit in 1991. He used to drink a few alcoholic beverages a month but only rarely drinks alcohol now. Code status: DNR/DNI Healthcare power of exercise scientist: Smoking packs per day: 2.5 Smoking cigarettes per day: 50.0 Years smoked: 10 Smoking pack-years: 25.00 Smoking status: Never smoker Second hand tobacco smoke exposure: Yes Alcohol intake: never Drinks per week: 1 Alcohol use details: socially Substance use: never Substance use type: does not use Do You Feel Safe in your Home?: Yes Lack of Transportation: No Lack of Food: Never True Current Housing: I Have Housing Concerned About Future Housing: No Difficulty Paying Gas/Electric Bills: No Difficulty Paying for Meds: No Currently Unemployed: No Education: Decline to Answer Difficulty w/ Childcare or Family Care: No Living arrangements: with family Additional living arrangements comments: lives with Occupation/Education: retired 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 Gender identity (if verbalized by the patient): Male Spiritual care concerns: No Meds Home Medications and Allergies Home Medications ?Medication ?Instructions ?Recorded ?Confirmed ?Type nitroglycerin 0.4 mg sublingual 0.4 mg sublingual Q5M PRN chest 01/16/23 01/12/25 Rx tablet pain #25 tabs nystatin 100,000 unit/gram topical 1 applic topical BID #30 grams 02/29/24 01/12/25 Rx cream donepezil 5 mg tablet (Aricept) 5 mg PO QHS #30 tabs 05/29/24 01/12/25 Rx aspirin 81 mg tablet,delayed 81 mg PO DAILY 08/06/24 01/12/25 History release (Adult Low Dose Aspirin) doxazosin 2 mg tablet See Rx Instructions .Route 08/17/24 01/12/25 Rx .COMPLEX #90 tabs bacitracin 500 unit/gram topical 1 applic topical BID 08/21/24 01/12/25 History ointment dibucaine 1 % topical ointment 1 applic topical QID PRN Pain of 08/21/24 01/12/25 History groin ulcer metformin 500 mg tablet,extended See Rx Instructions .Route 09/27/24 01/12/25 Rx release 24 hr .COMPLEX #360 tabs rosuvastatin 40 mg tablet 40 mg PO DAILY #90 tabs 09/27/24 01/12/25 Rx dutasteride 0.5 mg capsule 0.5 mg PO DAILY #90 caps 11/08/24 01/12/25 Rx levothyroxine 75 mcg tablet 75 mcg PO DAILY #90 tabs 11/10/24 01/12/25 Rx fluticasone propionate 50 1 spray intranasal DAILY #16 grams 12/20/24 01/12/25 Rx mcg/actuation nasal spray,suspension (Flonase Allergy Relief) acetaminophen 325 mg capsule 650 mg PO Q6H PRN pain 01/12/25 01/12/25 History apixaban 5 mg tablet (Eliquis) 5 mg PO Q12H 01/12/25 01/12/25 History calcium 500 mg (as 1 tablet PO DAILY 01/12/25 01/12/25 History carbonate)-vitamin D3 5 mcg (200 unit) tablet (Calcium 500 + D) fluticasone propionate 50 1 spray intranasal Q12H 01/12/25 01/12/25 History mcg/actuation nasal spray,suspension (24 Hour Allergy Relief) ibuprofen 400 mg tablet 600 mg PO Q6H PRN pain 01/12/25 01/12/25 History insulin lispro 100 unit/mL 3 unit subcut .meals 01/12/25 01/12/25 History subcutaneous solution (Humalog U-100 Insulin) linezolid 600 mg tablet 600 mg PO Q12H 01/12/25 01/12/25 History metoprolol succinate 50 mg 25 mg PO DAILY 01/12/25 01/12/25 History tablet,extended release 24 hr oxycodone 5 mg tablet 5 mg PO Q6H PRN pain 01/12/25 01/12/25 History pantoprazole 40 mg tablet,delayed 40 mg PO QAM 01/12/25 01/12/25 History release polyethylene glycol 3350 17 17 g PO DAILY PRN constipation 01/12/25 01/12/25 History gram/dose oral powder (ClearLax) sennosides 8.6 mg-docusate sodium 2 tab-cap PO BID 01/12/25 01/12/25 History 50 mg tablet (Colace 2-In-1) trospium 60 mg capsule,extended 60 mg PO DAILY PRN bladder spasms 01/12/25 01/12/25 History release 24 hr Allergies Allergy/AdvReac Type Severity Reaction Status Date / Time finasteride Allergy Intermediate Hives Verified 01/12/25 15:15 JOSHUA Inhibitors Allergy Unknown Cough Verified 01/12/25 15:15 ARB-Angiotensin Receptor Allergy Unknown Cough Verified 01/12/25 15:15 Antagonist lisinopril Allergy Unknown Cough Verified 01/12/25 15:15 Vital Signs Vital Signs - 24 hr 01/12/25 15:01 01/12/25 15:08 01/12/25 16:40 Temperature 97.6 F Pulse Rate 110 H 107 H Respiratory Rate 19 18 Blood Pressure 106/70 110/58 L Pulse Oximetry 99 99 98 Oxygen Delivery Room Air Room Air 01/12/25 18:45 Temperature Pulse Rate 108 H Respiratory Rate 20 Blood Pressure 114/62 Pulse Oximetry 97 Oxygen Delivery Exam 2 Narrative: Weight 88.9 kg BMI 25.9 Const: Other: Acutely ill-appearing, debilitated, deconditioned HENMT: Other: Mucous membranes are dry, no oral pharyngeal erythema, crowded posterior oropharynx Eyes: Other: Marked conjunctival pallor, no scleral icterus, bilateral lens implants noted Neck: Other: No JVD, no lymphadenopathy Resp: Other: shallow respirations, no increased work of breathing Cardio: Other: Irregularly irregular, rate controlled, 2+ bilateral radial and pedal pulses GI: Other: Soft, slightly distended, nontender, hypoactive bowel sounds : Other: Nuñez catheter in place with clear yellow urine, scrotal edema Skin: Other: Generalized pallor, non jaundice, he numerous scattered superficial hematomas Neuro: Other: Patient is alert oriented to person and the fact that he is in the hospital, no localizing neurologic deficits noted but exam limited Extrem: Other: Marked pitting edema of the left lower extremity up through the knee and , edema of the right hand wrist and forearm, edema of the left upper extremity, Psych: Other: Pleasantly confused, cooperative, poor judgment and insight H&P: Results Labs Labs: Laboratory Tests 01/12/25 15:35 01/12/25 15:35 01/12/25 01/12/25 01/12/25 15:35 15:35 15:35 WBC 12.1 H RBC 2.81 L Hgb 7.9 L Hct 25.0 L MCV 89.0 MCH 28.1 MCHC 31.6 L RDW 18.1 H Plt Count 106 L MPV 9.2 Immature Gran % (Auto) 0.8 H Neut % (Auto) 86.7 H Lymph % (Auto) 9.6 L Geary % (Auto) 2.6 Eos % (Auto) 0.1 Baso % (Auto) 0.2 Lymph # (Auto) 1.16 Geary # (Auto) 0.3 Eos # (Auto) 0.0 Baso # (Auto) 0.0 Abs Immat Gran (auto) 0.10 H Absolute Neuts (auto) 10.5 H Absolute Nucleated RBC 0.020 H Nucleated RBC % 0.2 PT 20.7 H INR 1.8 APTT 40.7 H Sodium 132 L Potassium 4.5 Chloride 101 Carbon Dioxide 23 Anion Gap 8 BUN 26 H Creatinine 1.04 Estim Creat Clear Calc 55 Estimated GFR > 60 Glucose 155 H POC Capillary Glucose Lactic Acid 5.0 H* Calcium 8.3 L Magnesium 2.0 Cancelled Total Bilirubin 0.6 AST 25 ALT 35 Alkaline Phosphatase 74 Troponin I 0.015 Cancelled NT-Pro-B Natriuret Pep 763 H Total Protein 5.2 L Albumin 2.4 L Urine Color Urine Appearance Urine pH Ur Specific [place] Urine Protein Urine Glucose (UA) Urine Ketones Ur Blood (Man) Urine Nitrate Urine Bilirubin Urine Urobilinogen Leukocyte Esterase Rfl Urine RBC Urine WBC Ur Squamous Epith Cells Urine Bacteria Urine Casts Urine Yeast (Budding) 01/12/25 01/12/25 01/12/25 16:43 17:54 20:47 WBC RBC Hgb Hct MCV MCH MCHC RDW Plt Count MPV Immature Gran % (Auto) Neut % (Auto) Lymph % (Auto) Geary % (Auto) Eos % (Auto) Baso % (Auto) Lymph # (Auto) Geary # (Auto) Eos # (Auto) Baso # (Auto) Abs Immat Gran (auto) Absolute Neuts (auto) Absolute Nucleated RBC Nucleated RBC % PT INR APTT Sodium Potassium Chloride Carbon Dioxide Anion Gap BUN Creatinine Estim Creat Clear Calc Estimated GFR Glucose POC Capillary Glucose 155 H Lactic Acid 4.3 H* Calcium Magnesium Total Bilirubin AST ALT Alkaline Phosphatase Troponin I 0.021 D NT-Pro-B Natriuret Pep Total Protein Albumin Urine Color Yellow Urine Appearance Turbid H Urine pH 5.5 Ur Specific [place] 1.028 Urine Protein 2+ H Urine Glucose (UA) 3+ H Urine Ketones Trace H Ur Blood (Man) 3+ H Urine Nitrate Negative Urine Bilirubin Negative Urine Urobilinogen 0.2 Leukocyte Esterase Rfl 3+ H Urine RBC >100 H Urine WBC >100 H Ur Squamous Epith Cells None seen Urine Bacteria Rare Urine Casts 3-5 Urine Yeast (Budding) Present H 01/13/25 00:17 WBC RBC Hgb Hct MCV MCH MCHC RDW Plt Count MPV Immature Gran % (Auto) Neut % (Auto) Lymph % (Auto) Geary % (Auto) Eos % (Auto) Baso % (Auto) Lymph # (Auto) Geary # (Auto) Eos # (Auto) Baso # (Auto) Abs Immat Gran (auto) Absolute Neuts (auto) Absolute Nucleated RBC Nucleated RBC % PT INR APTT > 200.0 H* Sodium Potassium Chloride Carbon Dioxide Anion Gap BUN Creatinine Estim Creat Clear Calc Estimated GFR Glucose POC Capillary Glucose Lactic Acid Calcium Magnesium Total Bilirubin AST ALT Alkaline Phosphatase Troponin I NT-Pro-B Natriuret Pep Total Protein Albumin Urine Color Urine Appearance Urine pH Ur Specific [place] Urine Protein Urine Glucose (UA) Urine Ketones Ur Blood (Man) Urine Nitrate Urine Bilirubin Urine Urobilinogen Leukocyte Esterase Rfl Urine RBC Urine WBC Ur Squamous Epith Cells Urine Bacteria Urine Casts Urine Yeast (Budding) Impressions Chest CTA 01/12/25 16:59 IMPRESSION: Multiple pulmonary emboli, large clot burden, and evidence of right heart strain. Trace right and small left pleural effusions. 4 mm right upper lobe pulmonary nodule, consider an optional follow-up low-dose noncontrast CT of the chest in one year if the patient is at high risk. Gallbladder hydrops, likely secondary to fasting the absence of right upper quadrant pain or biliary labs abnormalities. Innumerable pancreatic cysts, which may represent the sequela of chronic pancreatitis, or less likely the uncommon diagnosis of isolated polycystic pancreatic disease. Correlate for pancreatic enzyme abnormalities and any symptoms of vague abdominal pain. Consider nonemergent MRI of the pancreas if there are abdominal symptoms. Telemetry reviewed All imaging and EKGs personally reviewed and interpreted. And unless stated otherwise agree with radiologic and cardiology interpretation. Assessment and Plan Assessment and plan (1) Pulmonary embolism: Qualifiers: Pulmonary embolism type: unspecified Chronicity: acute Acute cor pulmonale presence: with acute cor pulmonale Qualified Code(s): I26.09 - Other pulmonary embolism with acute cor pulmonale Code(s): I26.99 - Other pulmonary embolism without acute cor pulmonale Status: Acute (2) Acute on chronic anemia: Code(s): D64.9 - Anemia, unspecified Status: Acute (3) Lactic acidosis: Code(s): E87.20 - Acidosis, unspecified Status: Acute (4) Abnormal urinalysis: Code(s): R82.90 - Unspecified abnormal findings in urine Status: Acute Plan Patient has evidence of a large pulmonary embolism. Was recently diagnosed with DVTs in was already on Eliquis at the long term. Patient been admitted for treatment with heparin drip. CT demonstrates evidence of right heart strain with prior normal echocardiogram last month. Will continue heparin drip per protocol. Amazingly patient is not having any significant chest pain or respiratory distress despite his large pulmonary embolisms. Will obtain echocardiogram to further evaluate right heart strain. It sounds like the patient's family does not want aggressive treatment or thrombectomy. Family reportedly is considering transitioning to palliative care or hospice. Will place care coordination consult to provide family with information regarding palliative care and for to change the patient's advanced directives. Patient had previously verbalized wanting to be a DNR but paperwork at the long term still states patient is full code. Will need to monitor patient's hemoglobin closely given acute on chronic anemia in need for heparin drip. Will repeat CBC, coag panel in a.m.. Patient does have significant lactic acidosis likely due to a combination of factors id metformin use,, decreased perfusion and or some hepatic dysfunction. The patient did have lactic acidosis during his last hospitalization that did not completely normalize. Lactic acid is definitely higher than prior values. Metformin is on hold. Patient's lactic acid did improve after 1 L fluid bolus. Although the patient has generalized anasarca on exam is mucous membranes are dry any does not have evidence of JVD. Given prior normal echocardiogram I feel the patient could use some further intervascular volume repletion. Will give patient 1 more L IV fluids at 75 mL an hour and start the patient on albumin IV q.8 hours. Will repeat CMP in a.m.. Patient has abnormal urinalysis that could be consistent with UTI. Patient but being treated for UTI with linezolid as outpatient. Linezolid will be continued until the 8th. Patient received 1 dose of Rocephin in the ER which will be discontinued. Urine cultures are pending. Patient's condition: Serious but stable Prognosis: Poor MEDICAL DECISION MAKING NARRATIVE -Spoke with the ED provider in detail regarding patient's evaluation, workup and management -Patient seen and examined at bedside -Collaborated with patient's nurse at the bedside in detail and addressed all concerns -Labs, electrolytes, radiology, investigations and test results reviewed -ED/Consult/Nursing/Ancilliary notes on the chart reviewed and appreciated Patient has been admitted as observation status. Quality VTE Prophylaxis VTE prophylaxis: pharmacologic ordered (Heparin drip per protocol) Hospitalist MIPS Advance Care Plan I have confirmed that the patient's Advanced Care Plan is present, code status is documented, or surrogate decision maker is listed in patient medical record.: Yes Medication Reconciliation I have utilized all available resources to obtain, update and review the patients current medications (includes all prescriptions, OTC, herbals, cannabis, and nutritional supplements).: Yes
--- NOTE | 2025-01-12 21:47 | WNDPHOTO ---
PHOTO ONLY - See Nursing Notes and/ or assessments for documentation.
--- NOTE | 2025-01-12 21:51 | WNDPHOTO ---
PHOTO ONLY - See Nursing Notes and/ or assessments for documentation.
[2025-01-12 22:00] VITALS: BP 120/53; PULSE 72; RESP 18; TEMP 36; O2SAT 91
[2025-01-12 22:10] VITALS: BMI 25.8
[2025-01-12] MEDS: DONEPEZIL HCL 5 MG TABLET PO (22:27)
[2025-01-13] VITALS (11 sets, daily range): BP systolic 98–129; BP diastolic 40–67; PULSE 67–119; RESP 12–20; TEMP 36.1–36.4; O2SAT 94–95
[2025-01-13 00:55] LABS: Partial Thromboplastin Time > 200.0 Seconds (22.3-36.8)
[2025-01-13] MEDS: HEPARIN SOD/D5W 100 UNITS/ML 25,000 UNITS/250 ML BAG 15 UNITS IV CONT (00:56)
--- NOTE | 2025-01-13 00:58 | PC.NURSE ---
PTT greater then 200 heparin drip on hold per protocol will restart in 1 hour at 12ml/hr vertified with Obed lemon
[2025-01-13] MEDS: HEPARIN SOD/D5W 100 UNITS/ML 25,000 UNITS/250 ML BAG 12 UNITS IV CONT ×2 (01:56→06:56)
[2025-01-13] MEDS: SODIUM CHLORIDE 0.9% IV 1,000 ML 75 ML IV CONT (04:50)
[2025-01-13] MEDS: LEVOTHYROXINE SODIUM 75 MCG TABLET PO (05:42)
[2025-01-13] MEDS: oxyCODONE HCL (*CRX) 5 MG TAB IR PO ×3 (05:43→18:37)
[2025-01-13] MEDS: ALBUMIN HUMAN 25% 25 GM/100 ML 200 ML IVPB ×3 (05:46→21:53)
[2025-01-13 06:13] LABS: Hematocrit 25.0 % (42.0-52.0); Hemoglobin 7.9 g/dL (14.0-18.0); Immature Granulocyte Percent A 0.8 % (0-0.5); Lymphocytes Absolute Auto 1.33 K/mm3 (0.9-3.2); Mean Corpuscular HGB Conc 31.6 g/dl (32-36); Mean Corpuscular Hemoglobin 28.2 pg (26-34); Mean Corpuscular Volume 89.3 fl (80-100); Nucleated Red Blood Cells Absolute Auto 0.000 K/mm3 (0.0-0.012); Nucleated Red Blood Cells Perc 0.0 % (0.0-0.2); Platelet Count Result 117 k/mm3 (150-375); Red Blood Count 2.80 M/mm3 (4.6-6.20); White Blood Count 14.2 K/mm3 (4.5-10.0)
[2025-01-13 06:28] LABS: Alanine Aminotransferase 30 U/L (6-50); Albumin Level 2.4 g/dL (3.5-5.1); Alkaline Phosphatase 77 U/L (38-126); Anion Gap 6 mmol/L (4-12); Aspartate Amino Transferase 23 U/L (17-59); Bilirubin,Total 0.6 mg/dL (0.2-1.3); Blood Urea Nitrogen 24 mg/dL (9-20); Calcium 8.4 mg/dL (8.4-10.2); Carbon Dioxide 25 mmol/L (22-30); Chloride 102 mmol/L (98-107); Estimated CRCL calculation 59 ml/min; Estimated Glomerular Filt Rate > 60; Glucose 118 mg/dL (65-110); Potassium 3.9 mmol/L (3.4-5.0); Sodium 133 mmol/L (137-145); Total Protein 5.3 g/dL (6.3-8.2)
[2025-01-13 06:47] LABS: Partial Thromboplastin Time > 200.0 Seconds (22.3-36.8)
--- NOTE | 2025-01-13 06:58 | PC.NURSE ---
PTT greater the 200 heparin gtt on hold per protocol will restart in 1 hour
[2025-01-13] MEDS: HYDROcodone/acetaminophen (*CRX) 5-325 MG TABLET 1 TAB PO ×3 (09:32→21:49)
[2025-01-13] MEDS: FLUTICASONE PROPIONATE 0.05% NA SPR 16 GM BTL (*BKC) 1 SPRAY XX (09:34)
[2025-01-13] MEDS: METOPROLOL SUCCINATE EXT REL 25 MG TABCR PO (11:35)
[2025-01-13 15:00] LABS: Partial Thromboplastin Time 78.4 Seconds (22.3-36.8)
--- NOTE | 2025-01-13 16:15 | P.PNIM_ITS ---
Progress Note: A&P Assessment and Plan (1) Pulmonary embolism: Qualifiers: Acute cor pulmonale presence: with acute cor pulmonale Chronicity: acute Pulmonary embolism type: unspecified Qualified Code(s): I26.09 - Other pulmonary embolism with acute cor pulmonale Code(s): I26.99 - Other pulmonary embolism without acute cor pulmonale Status: Acute (2) Acute on chronic anemia: Code(s): D64.9 - Anemia, unspecified Status: Acute (3) Lactic acidosis: Code(s): E87.20 - Acidosis, unspecified Status: Acute (4) Abnormal urinalysis: Code(s): R82.90 - Unspecified abnormal findings in urine Status: Acute Plan Acute PE Right heart strain on CT Recent diagnosis of DVT at SNF, was on Eliquis DNR/DNI. Spoke with his daughter at the bedside and the patient --Continue heparin drip. --Not wanting aggressive interventions but described thrombectomy and that wasn't out of the question if worsening. Plan is for heparin drip and doesn't want to consider transfer at this time. Overall trying to limit interventions and would not want most interventions. Central line would be ok. Consult cardiology if hemodynamic changes --Echo --palliative care or hospice if family decides they do not want continued interventions. Continuing heparin drip at this time Lactic acidosis significant lactic acidosis likely due to a combination of factors id metformin use,, decreased perfusion and or some hepatic dysfunction. The patient did have lactic acidosis during his last hospitalization that did not completely normalize. Lactic acid is definitely higher than prior values but this is in the setting of acute PE. Metformin is on hold. Patient's lactic acid did improve after 1 L fluid bolus. UTI Patient has abnormal urinalysis that could be consistent with UTI. Patient but being treated for UTI with linezolid as outpatient. Linezolid will be continued until the 8th. Patient received 1 dose of Rocephin in the ER which will be dis continued. Urine cultures are pending. Patient's condition: Serious but stable Prognosis: Poor MEDICAL DECISION MAKING NARRATIVE -Patient seen and examined at bedside -Collaborated with patient's nurse and family at the bedside in detail and addressed all concerns -Labs, electrolytes, radiology, investigations and test results reviewed -ED/Consult/Nursing/Ancilliary notes on the chart reviewed and appreciated Patient has been admitted as observation status. Time Spent With Patient Time: 58 Subjective Date/time seen: 01/13/25 16:15 Interval history: Spoke with patient and daughter at bedside and not planning to transfer at this time. Hopeful that heparin drip will help with blood clots. I discussed thrombolysis with them. They were going to discuss it further but no plans for surgical interventions at this time. Not on oxygen and no pain at this time. Review of Systems Review of Systems: Review of systems unobtainable due to patient's dementia Exam Narrative: Weight 88.9 kg BMI 25.9 General - Awake and alert. No acute distress Eyes - PERRLA, EOM intact ENT - No thrush, No erythema Neck - No noticeable or palpable swelling Lymph Nodes - No lymphadenopathy Cardiovascular - RRR no m/r/g, no JVD Lungs: Clear to auscultation, decreased No wheezing, use of accessory muscles, no crackles Skin - Skin warm and dry, no rashes. Wounds to arms wrapped Abdomen - Normal bowel sounds, abdomen soft and nontender Extremities - Generalized edema, left >right leg cyanosis or clubbing Musculoskeletal - 5/5 strength, normal range of motion, no swollen or erythematous joints. Neurological ? Alert and oriented x 3, CN 2-12 grossly intact. Psych: Normal mood and affect Objective Data Vital Signs Vital Signs: Vital Signs - 24 hr 01/12/25 16:40 01/12/25 18:45 01/12/25 22:00 Temperature 96.8 F L Pulse Rate 107 H 108 H 72 Respiratory Rate 18 20 18 Blood Pressure 110/58 L 114/62 120/53 L Pulse Oximetry 98 97 91 Oxygen Delivery 01/13/25 00:00 01/13/25 04:00 01/13/25 06:00 Temperature 96.9 F L Pulse Rate 110 H 119 H 67 Respiratory Rate 18 Blood Pressure 127/61 Pulse Oximetry 94 Oxygen Delivery 01/13/25 08:00 01/13/25 08:00 01/13/25 11:35 Temperature Pulse Rate 117 H 108 H Respiratory Rate Blood Pressure Pulse Oximetry 94 Oxygen Delivery Room Air 01/13/25 12:00 01/13/25 14:00 01/13/25 15:20 Temperature 97.5 F L Pulse Rate 108 H 69 Respiratory Rate 12 Blood Pressure 98/40 L 104/53 L Pulse Oximetry 95 Oxygen Delivery Intake/Output Intake/Output: Intake & Output 01/10/25 01/11/25 01/12/25 01/13/25 23:59 23:59 23:59 23:59 Intake Total 1050 730.2 Output Total 1500 Balance 1050 -769.8 Meds/Results Medications: Active Medications Generic Name Dose Route Start Last Admin Trade Name Freq PRN Reason Stop Dose Admin Acetaminophen 650 mg 01/12/25 21:07 Acetaminophen 325 Mg Tablet PO Q6H PRN pain 1-3 or fever Hydrocodone Bitart/Acetaminophen 1 tab 01/13/25 09:00 01/13/25 15:22 Hydrocodone/Acetaminophen (*Crx) 5-325 Mg Tablet PO 1 tab Q6H NEHEMIAH Administration Aspirin 81 mg 01/13/25 09:00 01/13/25 09:35 Aspirin 81 Mg Enteric Tablet PO Not Given DAILY ON LICENSE OF [facility] Calcium Carbonate 500 mg 01/13/25 09:00 01/13/25 09:35 Calcium/Vitamin D 500 Mg/5 Mcg (200 I.U.) Tablet PO Not Given DAILY ON LICENSE OF [facility] Dextrose 12.5 gm 01/13/25 02:29 Dextrose 50% 25 Gm/50 Ml Syringe IV PUSH PRN PRN Hypoglycemia Protocol Dibucaine 1 applic 01/12/25 21:07 Dibucaine 1% Ointment 30 Gm Tube TOPICAL QID PRN Pain of groin ulcer Donepezil HCl 5 mg 01/12/25 21:10 01/12/25 22:27 Donepezil Hcl 5 Mg Tablet PO 5 mg QHS NEHEMIAH Administration Doxazosin Mesylate 2 mg 01/12/25 21:25 01/12/25 22:33 Doxazosin Mesylate 2 Mg Tablet PO Not Given QHS ON LICENSE OF [facility] Dutasteride 0.5 mg 01/13/25 09:00 01/13/25 09:36 Dutasteride 0.5 Mg Capsule PO Not Given DAILY ON LICENSE OF [facility] Fluticasone Propionate 1 spray 01/12/25 21:30 01/13/25 09:36 Fluticasone Propionate 0.05% Na Spr 16 Gm Btl (*Bkc) NASAL Not Given Q12HR ON LICENSE OF [facility] Fluticasone Propionate 1 spray 01/13/25 09:00 01/13/25 09:34 Fluticasone Propionate 0.05% Na Spr 16 Gm Btl (*Bkc) XX 1 spray DAILY ON LICENSE OF [facility] Administration Glucagon 1 mg 01/13/25 02:29 Glucagon For Inj 1 Mg Vial IM PRN PRN Hypoglycemia Protocol Glucose 15 gm 01/13/25 02:29 Glucose Oral Gel 15 Gm Of Glucse In 37.5 Gm Tube PO PRN PRN Hypoglycemia Protocol Heparin Sodium (Porcine) 7,000 units 01/12/25 17:33 Heparin Sodium 5,000 Units/Ml Vial IV PUSH PRN PRN aPTT less than 55 seconds Heparin Sodium (Porcine) 3,500 units 01/12/25 17:33 Heparin Sodium 5,000 Units/Ml Vial IV PUSH PRN PRN aPTT 55 - 70 seconds Heparin Sodium/Dextrose 25,000 units in 250 mls @ 9 mls/hr 01/12/25 17:35 01/13/25 07:58 Heparin Sodium/D5w 100 Units/Ml IV CONT 900 units/hr .Q24H NEHEMIAH 9 mls/hr Titration Protocol 900 UNITS/HR Ceftriaxone Sodium 1 gm in 50 mls @ 100 mls/hr 01/13/25 18:00 Rocephin 1 Gm/Ns 50 Ml IVPB Q24H NEHEMIAH Dextrose 1,000 mls @ 100 mls/hr 01/13/25 02:29 Dextrose 5% 1,000 Ml IVPB PRN PRN Hypoglycemia Protocol Albumin Human 200 mls @ 60 mls/hr 01/13/25 06:00 01/13/25 13:52 Albutein IVPB 60 mls/hr Q8HR NEHEMIAH Administration Insulin Aspart 2 - 5 units 01/13/25 08:00 01/13/25 11:58 Insulin Aspart (*Fer) 100 Units/Ml SUB-Q Not Given TIDWM NEHEMIAH Protocol Levothyroxine Sodium 75 mcg 01/13/25 06:30 01/13/25 05:42 Levothyroxine Sodium 75 Mcg Tablet PO 75 mcg DAILY@0630 NEHEMIAH Administration Linezolid 600 mg 01/12/25 21:25 01/13/25 12:40 Linezolid 600 Mg Tablet PO 01/14/25 21:01 Not Given Q12HR NEHEMIAH Metoprolol Succinate 25 mg 01/13/25 09:00 01/13/25 11:35 Metoprolol Succinate Ext Rel 25 Mg Tabcr PO 25 mg DAILY NEHEMIAH Administration Miconazole Nitrate 1 applic 01/13/25 09:00 01/13/25 09:36 Miconazole Nitrate 2% Cream 30 Gm Tube TOPICAL Not Given Q12HR NEHEMIAH Oxycodone HCl 5 mg 01/12/25 21:07 01/13/25 11:35 Oxycodone Hcl (*Crx) 5 Mg Tab Ir PO 5 mg Q6H PRN Administration pain 4-10 Pantoprazole Sodium 40 mg 01/13/25 09:00 01/13/25 09:36 Pantoprazole 40 Mg Tablet PO Not Given QAM NEHEMIAH Polyethylene Glycol 17 gm 01/12/25 21:07 Polyethylene Glycol 3350 17 Gm Powd.Pack PO DAILY PRN constipation Senna/Docusate Sodium 2 tab 01/13/25 09:00 01/13/25 09:35 Senna/Docusate Sodium Tablet PO Not Given Q12HR ON LICENSE OF [facility] Radiology Results: ITS Impressions Chest CTA 01/12/25 16:59 IMPRESSION: Multiple pulmonary emboli, large clot burden, and evidence of right heart strain. Trace right and small left pleural effusions. 4 mm right upper lobe pulmonary nodule, consider an optional follow-up low-dose noncontrast CT of the chest in one year if the patient is at high risk. Gallbladder hydrops, likely secondary to fasting the absence of right upper quadrant pain or biliary labs abnormalities. Innumerable pancreatic cysts, which may represent the sequela of chronic pancreatitis, or less likely the uncommon diagnosis of isolated polycystic pancreatic disease. Correlate for pancreatic enzyme abnormalities and any symptoms of vague abdominal pain. Consider nonemergent MRI of the pancreas if there are abdominal symptoms. Results reported telephonically to Dr. Haque by Dr. Barry at 5:19 PM on 01/12/2025. Labs Labs: Laboratory Results - last 24 hr 01/12/25 01/12/25 01/12/25 16:43 17:54 20:47 WBC RBC Hgb Hct MCV MCH MCHC RDW Plt Count MPV Immature Gran % (Auto) Neut % (Auto) Lymph % (Auto) Colbert % (Auto) Eos % (Auto) Baso % (Auto) Lymph # (Auto) Colbert # (Auto) Eos # (Auto) Baso # (Auto) Abs Immat Gran (auto) Absolute Neuts (auto) Absolute Nucleated RBC Nucleated RBC % APTT Sodium Potassium Chloride Carbon Dioxide Anion Gap BUN Creatinine Estim Creat Clear Calc Estimated GFR Glucose POC Capillary Glucose 155 H Lactic Acid 4.3 H* Calcium Total Bilirubin AST ALT Alkaline Phosphatase Troponin I 0.021 D Total Protein Albumin Urine Color Yellow Urine Appearance Turbid H Urine pH 5.5 Ur Specific [place] 1.028 Urine Protein 2+ H Urine Glucose (UA) 3+ H Urine Ketones Trace H Ur Blood (Man) 3+ H Urine Nitrate Negative Urine Bilirubin Negative Urine Urobilinogen 0.2 Leukocyte Esterase Rfl 3+ H Urine RBC >100 H Urine WBC >100 H Ur Squamous Epith Cells None seen Urine Bacteria Rare Urine Casts 3-5 Urine Yeast (Budding) Present H 01/13/25 01/13/25 01/13/25 00:17 05:58 08:21 WBC 14.2 H RBC 2.80 L Hgb 7.9 L Hct 25.0 L MCV 89.3 MCH 28.2 MCHC 31.6 L RDW 17.7 H Plt Count 117 L MPV 10.3 Immature Gran % (Auto) 0.8 H Neut % (Auto) 85.3 H Lymph % (Auto) 9.4 L Colbert % (Auto) 3.9 Eos % (Auto) 0.4 Baso % (Auto) 0.2 Lymph # (Auto) 1.33 Colbert # (Auto) 0.6 Eos # (Auto) 0.1 Baso # (Auto) 0.0 Abs Immat Gran (auto) 0.12 H Absolute Neuts (auto) 12.1 H Absolute Nucleated RBC 0.000 Nucleated RBC % 0.0 APTT > 200.0 H* > 200.0 H* Sodium 133 L Potassium 3.9 Chloride 102 Carbon Dioxide 25 Anion Gap 6 BUN 24 H Creatinine 0.96 Estim Creat Clear Calc 59 Estimated GFR > 60 Glucose 118 H POC Capillary Glucose Lactic Acid 2.6 H 3.1 H Calcium 8.4 Total Bilirubin 0.6 AST 23 ALT 30 Alkaline Phosphatase 77 Troponin I Total Protein 5.3 L Albumin 2.4 L Urine Color Urine Appearance Urine pH Ur Specific [place] Urine Protein Urine Glucose (UA) Urine Ketones Ur Blood (Man) Urine Nitrate Urine Bilirubin Urine Urobilinogen Leukocyte Esterase Rfl Urine RBC Urine WBC Ur Squamous Epith Cells Urine Bacteria Urine Casts Urine Yeast (Budding) 01/13/25 01/13/25 01/13/25 08:55 11:30 14:30 WBC RBC Hgb Hct MCV MCH MCHC RDW Plt Count MPV Immature Gran % (Auto) Neut % (Auto) Lymph % (Auto) Colbert % (Auto) Eos % (Auto) Baso % (Auto) Lymph # (Auto) Colbert # (Auto) Eos # (Auto) Baso # (Auto) Abs Immat Gran (auto) Absolute Neuts (auto) Absolute Nucleated RBC Nucleated RBC % APTT 78.4 H Sodium Potassium Chloride Carbon Dioxide Anion Gap BUN Creatinine Estim Creat Clear Calc Estimated GFR Glucose POC Capillary Glucose 216 H 181 H Lactic Acid Calcium Total Bilirubin AST ALT Alkaline Phosphatase Troponin I Total Protein Albumin Urine Color Urine Appearance Urine pH Ur Specific [place] Urine Protein Urine Glucose (UA) Urine Ketones Ur Blood (Man) Urine Nitrate Urine Bilirubin Urine Urobilinogen Leukocyte Esterase Rfl Urine RBC Urine WBC Ur Squamous Epith Cells Urine Bacteria Urine Casts Urine Yeast (Budding) Quality VTE Prophylaxis VTE prophylaxis: pharmacologic ordered (Heparin drip per protocol) Hospitalist MIPS Advance Care Plan I have confirmed that the patient's Advanced Care Plan is present, code status is documented, or surrogate decision maker is listed in patient medical record.: Yes Medication Reconciliation I have utilized all available resources to obtain, update and review the patients current medications (includes all prescriptions, OTC, herbals, cannabis, and nutritional supplements).: Yes
[2025-01-13] MEDS: HEPARIN SOD/D5W 100 UNITS/ML 25,000 UNITS/250 ML BAG 9 UNITS IV CONT (17:12)
[2025-01-13 21:03] LABS: Partial Thromboplastin Time 91.9 Seconds (22.3-36.8)
[2025-01-13] MEDS: SENNA/DOCUSATE SODIUM TABLET 2 TAB PO (21:45)
[2025-01-13] MEDS: LINEZOLID 600 MG TABLET PO (21:49)
[2025-01-13] MEDS: FLUTICASONE PROPIONATE 0.05% NA SPR 16 GM BTL (*BKC) 1 SPRAY NASAL (21:50)
[2025-01-13] MEDS: DOXAZOSIN MESYLATE 2 MG TABLET PO (21:50)
[2025-01-13] MEDS: DONEPEZIL HCL 5 MG TABLET PO (21:50)
[2025-01-13] MEDS: MICONAZOLE NITRATE 2% CREAM 30 GM TUBE 1 APPLIC TOPICAL (21:50)
[2025-01-14] VITALS (19 sets, daily range): BP systolic 90–126; BP diastolic 37–61; PULSE 84–101; RESP 16–20; TEMP 35.9–36.9; O2SAT 91–98; BMI 25.8
[2025-01-14] MEDS: oxyCODONE HCL (*CRX) 5 MG TAB IR PO ×3 (01:58→17:10)
[2025-01-14] MEDS: HYDROcodone/acetaminophen (*CRX) 5-325 MG TABLET 1 TAB PO ×3 (02:28→14:36)
[2025-01-14 04:43] LABS: Partial Thromboplastin Time 96.1 Seconds (22.3-36.8)
[2025-01-14] MEDS: LEVOTHYROXINE SODIUM 75 MCG TABLET PO (04:57)
[2025-01-14] MEDS: ALBUMIN HUMAN 25% 25 GM/100 ML 200 ML IVPB ×3 (07:34→22:13)
[2025-01-14] MEDS: METOPROLOL SUCCINATE EXT REL 25 MG TABCR PO (08:09)
[2025-01-14] MEDS: ASPIRIN 81 MG ENTERIC TABLET PO (08:09)
[2025-01-14] MEDS: CALCIUM/VITAMIN D 500 MG/5 MCG (200 I.U.) TABLET PO (08:12)
[2025-01-14] MEDS: DUTASTERIDE 0.5 MG CAPSULE PO (08:12)
[2025-01-14] MEDS: SENNA/DOCUSATE SODIUM TABLET 2 TAB PO ×2 (08:13→20:12)
[2025-01-14] MEDS: LINEZOLID 600 MG TABLET PO ×2 (08:13→20:12)
[2025-01-14] MEDS: PANTOPRAZOLE 40 MG TABLET PO (08:13)
--- NOTE | 2025-01-14 08:36 | PM.IMPN ---
Progress Note: A&P Assessment and Plan (1) Pulmonary embolism: Qualifiers: Acute cor pulmonale presence: with acute cor pulmonale Chronicity: acute Pulmonary embolism type: unspecified Qualified Code(s): I26.09 - Other pulmonary embolism with acute cor pulmonale Code(s): I26.99 - Other pulmonary embolism without acute cor pulmonale Status: Acute (2) Acute on chronic anemia: Code(s): D64.9 - Anemia, unspecified Status: Acute (3) Lactic acidosis: Code(s): E87.20 - Acidosis, unspecified Status: Acute (4) Abnormal urinalysis: Code(s): R82.90 - Unspecified abnormal findings in urine Status: Acute Plan Acute PE Right heart strain on CT Recent diagnosis of DVT at [facility], was on Eliquis DNR/DNI. Spoke with his daughter at the bedside and the patient -- heparin drip on hold for acute drop in Hgb --Not wanting aggressive interventions. Declined option for transfer to higher acuity, but that is appropriate because goals of care primarily palliative with limited interventions. Giving blood. Family agree with plan to hold heparin drip and give 2 units of blood. If he becomes hemodynamically unstable would plan for Consult cardiology if hemodynamic changes --Hold off on TTE since would not change managment --Readdress palliative care or hospice if new hemodyamic changes Lactic acidosis RESOLVED significant lactic acidosis likely due to a combination of factors id metformin use,, decreased perfusion and or some hepatic dysfunction. The patient did have lactic acidosis during his last hospitalization that did not completely normalize. Lactic acid is definitely higher than prior values but this is in the setting of acute PE. Metformin is on hold. Patient's lactic acid did improve after 1 L fluid bolus. L UTI RESOLVED Patient has abnormal urinalysis that could be consistent with UTI. Patient but being treated for UTI with linezolid as outpatient. Linezolid will be continued until the 8th. Patient received 1 dose of Rocephin in the ER which will be discontinued. Urine cultures are pending. Patient's condition: Serious but stable, high risk for deterioration Prognosis: Poor MEDICAL DECISION MAKING NARRATIVE -Patient seen and examined at bedside -Collaborated with patient's nurse and family at the bedside in detail and addressed all concerns -Labs, electrolytes, radiology, investigations and test results reviewed -ED/Consult/Nursing/Ancilliary notes on the chart reviewed and appreciated Patient has been admitted as observation status. Time Spent With Patient Time: 58 minutes Subjective Date/time seen: 01/14/25 08:36 Interval history: Spoke with patient, , and daughter at bedside and not planning to transfer. Blood count dropped, 7.9 to 5.5>5.4 Discussed option for GI consult for scope and declined interventions. Also no plan for invasive lines, reviewed option for central line and vasopressors, but would likely be minimal benefit since underlying cause of hypotension would be blood clot or bleeding PTT 96.1 this morning Discussed that drop in blood count is complicated since we need to hold heparin drip and blood clots are causing right strain, could lead to hemodynamic changes and medical instability. Planning transfusion. Family aware of potential for deterioration Had a BM this morning. No report of black stools, normal appearing. Changed PPI to IV. Rechecking Hgb to confirm and repeat 5.4. Discussed option for hospice and not ready for hospice. Review of Systems Review of Systems: Review of systems unobtainable due to patient's dementia Exam Narrative: Weight 88.9 kg BMI 25.9 General - Awake and alert. No acute distress Eyes - PERRLA, EOM intact ENT - No thrush, No erythema Neck - No noticeable or palpable swelling Lymph Nodes - No lymphadenopathy Cardiovascular - RRR no m/r/g, no JVD Lungs: Clear to auscultation, decreased No wheezing, use of accessory muscles, no crackles Skin - Skin warm and dry, no rashes. Wounds to arms wrapped Abdomen - Normal bowel sounds, abdomen soft and nontender Extremities - Generalized edema, left >right leg cyanosis or clubbing Musculoskeletal - 4/5 strength, normal range of motion, no swollen or erythematous joints. Neurological ? Alert and oriented x 3, CN 2-12 grossly intact. Psych: Normal mood and affect Objective Data Vital Signs Vital Signs: Vital Signs - 24 hr 01/13/25 11:35 01/13/25 12:00 01/13/25 14:00 Temperature 97.5 F L Pulse Rate 108 H 108 H 69 Respiratory Rate 12 Blood Pressure 98/40 L Pulse Oximetry 95 Oxygen Delivery 01/13/25 15:20 01/13/25 16:00 01/13/25 20:00 Temperature Pulse Rate 104 H 88 Respiratory Rate 20 Blood Pressure 104/53 L Pulse Oximetry 95 Oxygen Delivery Room Air 01/13/25 20:00 01/13/25 20:00 01/13/25 22:00 Temperature 97.6 F Pulse Rate 88 95 88 Respiratory Rate 20 Blood Pressure 129/67 Pulse Oximetry 95 Oxygen Delivery 01/14/25 00:00 01/14/25 04:00 01/14/25 06:00 Temperature 97.2 F L Pulse Rate 93 94 85 Respiratory Rate 19 Blood Pressure 124/61 Pulse Oximetry 98 Oxygen Delivery 01/14/25 08:09 Temperature Pulse Rate 84 Respiratory Rate Blood Pressure Pulse Oximetry Oxygen Delivery Intake/Output Intake/Output: Intake & Output 01/11/25 01/12/25 01/13/25 01/14/25 23:59 23:59 23:59 23:59 Intake Total 1050 2202.0 355.5 Output Total 2500 1200 Balance 1050 -298.0 -844.5 Meds/Results Medications: Active Medications Generic Name Dose Route Start Last Admin Trade Name Freq PRN Reason Stop Dose Admin Acetaminophen 650 mg 01/12/25 21:07 Acetaminophen 325 Mg Tablet PO Q6H PRN pain 1-3 or fever Hydrocodone Bitart/Acetaminophen 1 tab 01/13/25 09:00 01/14/25 08:09 Hydrocodone/Acetaminophen (*Crx) 5-325 Mg Tablet PO 1 tab Q6H NEHEMIAH Administration Aspirin 81 mg 01/13/25 09:00 01/14/25 08:09 Aspirin 81 Mg Enteric Tablet PO 81 mg DAILY NEHEMIAH Administration Calcium Carbonate 500 mg 01/13/25 09:00 01/14/25 08:12 Calcium/Vitamin D 500 Mg/5 Mcg (200 I.U.) Tablet PO 500 mg DAILY NEHEMIAH Administration Dextrose 12.5 gm 01/13/25 02:29 Dextrose 50% 25 Gm/50 Ml Syringe IV PUSH PRN PRN Hypoglycemia Protocol Dibucaine 1 applic 01/12/25 21:07 Dibucaine 1% Ointment 30 Gm Tube TOPICAL QID PRN Pain of groin ulcer Donepezil HCl 5 mg 01/12/25 21:10 01/13/25 21:50 Donepezil Hcl 5 Mg Tablet PO 5 mg QHS NEHEMIAH Administration Doxazosin Mesylate 2 mg 01/12/25 21:25 01/13/25 21:50 Doxazosin Mesylate 2 Mg Tablet PO 2 mg QHS NEHEMIAH Administration Dutasteride 0.5 mg 01/13/25 09:00 01/14/25 08:12 Dutasteride 0.5 Mg Capsule PO 0.5 mg DAILY NEHEMIAH Administration Fluticasone Propionate 1 spray 01/12/25 21:30 01/13/25 21:50 Fluticasone Propionate 0.05% Na Spr 16 Gm Btl (*Bkc) NASAL 1 spray Q12HR NEHEMIAH Administration Fluticasone Propionate 1 spray 01/13/25 09:00 01/13/25 09:34 Fluticasone Propionate 0.05% Na Spr 16 Gm Btl (*Bkc) XX 1 spray DAILY NEHEMIAH Administration Glucagon 1 mg 01/13/25 02:29 Glucagon For Inj 1 Mg Vial IM PRN PRN Hypoglycemia Protocol Glucose 15 gm 01/13/25 02:29 Glucose Oral Gel 15 Gm Of Glucse In 37.5 Gm Tube PO PRN PRN Hypoglycemia Protocol Heparin Sodium (Porcine) 7,000 units 01/12/25 17:33 Heparin Sodium 5,000 Units/Ml Vial IV PUSH PRN PRN aPTT less than 55 seconds Heparin Sodium (Porcine) 3,500 units 01/12/25 17:33 Heparin Sodium 5,000 Units/Ml Vial IV PUSH PRN PRN aPTT 55 - 70 seconds Heparin Sodium/Dextrose 25,000 units in 250 mls @ 9 mls/hr 01/12/25 17:35 01/14/25 03:40 Heparin Sodium/D5w 100 Units/Ml IV CONT 900 units/hr .Q24H NEHEMIAH 9 mls/hr Titration Protocol 900 UNITS/HR Ceftriaxone Sodium 1 gm in 50 mls @ 100 mls/hr 01/13/25 18:00 01/13/25 17:11 Rocephin 1 Gm/Ns 50 Ml IVPB 100 mls/hr Q24H NEHEMIAH Administration Dextrose 1,000 mls @ 100 mls/hr 01/13/25 02:29 Dextrose 5% 1,000 Ml IVPB PRN PRN Hypoglycemia Protocol Albumin Human 200 mls @ 60 mls/hr 01/13/25 06:00 01/14/25 07:34 Albutein IVPB 60 mls/hr Q8HR NEHEMIAH Administration Insulin Aspart 2 - 5 units 01/13/25 08:00 01/14/25 08:03 Insulin Aspart (*Bkc) 100 Units/Ml SUB-Q Not Given [facility] Protocol Levothyroxine Sodium 75 mcg 01/13/25 06:30 01/14/25 04:57 Levothyroxine Sodium 75 Mcg Tablet PO 75 mcg DAILY@0630 NEHEMIAH Administration Linezolid 600 mg 01/12/25 21:25 01/14/25 08:13 Linezolid 600 Mg Tablet PO 01/14/25 21:01 600 mg Q12HR NEHEMIAH Administration Metoprolol Succinate 25 mg 01/13/25 09:00 01/14/25 08:09 Metoprolol Succinate Ext Rel 25 Mg Tabcr PO 25 mg DAILY NEHEMIAH Administration Miconazole Nitrate 1 applic 01/13/25 09:00 01/13/25 21:50 Miconazole Nitrate 2% Cream 30 Gm Tube TOPICAL 1 applic Q12HR NEHEMIAH Administration Oxycodone HCl 5 mg 01/12/25 21:07 01/14/25 01:58 Oxycodone Hcl (*Crx) 5 Mg Tab Ir PO 5 mg Q6H PRN Administration pain 4-10 Pantoprazole Sodium 40 mg 01/13/25 09:00 01/14/25 08:13 Pantoprazole 40 Mg Tablet PO 40 mg QAM NEHEMIAH Administration Polyethylene Glycol 17 gm 01/12/25 21:07 Polyethylene Glycol 3350 17 Gm Powd.Pack PO DAILY PRN constipation Senna/Docusate Sodium 2 tab 01/13/25 09:00 01/14/25 08:13 Senna/Docusate Sodium Tablet PO 2 tab Q12HR NEHEMIAH Administration Radiology Results: ITS Impressions Chest CTA 01/12/25 16:59 IMPRESSION: Multiple pulmonary emboli, large clot burden, and evidence of right heart strain. Trace right and small left pleural effusions. 4 mm right upper lobe pulmonary nodule, consider an optional follow-up low-dose noncontrast CT of the chest in one year if the patient is at high risk. Gallbladder hydrops, likely secondary to fasting the absence of right upper quadrant pain or biliary labs abnormalities. Innumerable pancreatic cysts, which may represent the sequela of chronic pancreatitis, or less likely the uncommon diagnosis of isolated polycystic pancreatic disease. Correlate for pancreatic enzyme abnormalities and any symptoms of vague abdominal pain. Consider nonemergent MRI of the pancreas if there are abdominal symptoms. Results reported telephonically to Dr. Haque by Dr. Barry at 5:19 PM on 01/12/2025. Labs Labs: Laboratory Results - last 24 hr 01/13/25 01/13/25 01/13/25 08:21 08:55 11:30 APTT POC Capillary Glucose 216 H 181 H Lactic Acid 3.1 H 01/13/25 01/13/25 01/13/25 14:30 16:23 20:44 APTT 78.4 H 91.9 H POC Capillary Glucose 151 H Lactic Acid 01/13/25 01/14/25 01/14/25 21:08 03:40 07:43 APTT 96.1 H POC Capillary Glucose 124 H 114 H Lactic Acid Quality VTE Prophylaxis VTE prophylaxis: mechanical ordered Hospitalist MIPS Advance Care Plan I have confirmed that the patient's Advanced Care Plan is present, code status is documented, or surrogate decision maker is listed in patient medical record.: Yes Medication Reconciliation I have utilized all available resources to obtain, update and review the patients current medications (includes all prescriptions, OTC, herbals, cannabis, and nutritional supplements).: Yes
[2025-01-14 09:02] LABS: Immature Granulocyte Percent A 0.4 % (0-0.5); Immature Platelet Fraction Pct 3.6 % (0.9-11.2); Lymphocytes Absolute Auto 0.58 K/mm3 (0.9-3.2); Mean Corpuscular HGB Conc 31.1 g/dl (32-36); Mean Corpuscular Hemoglobin 28.2 pg (26-34); Mean Corpuscular Volume 90.8 fl (80-100); Nucleated Red Blood Cells Absolute Auto 0.000 K/mm3 (0.0-0.012); Nucleated Red Blood Cells Perc 0.0 % (0.0-0.2); Platelet Count Result 90 k/mm3 (150-375); Red Blood Count 1.95 M/mm3 (4.6-6.20); White Blood Count 5.1 K/mm3 (4.5-10.0)
[2025-01-14 09:14] LABS: Alanine Aminotransferase 19 U/L (6-50); Albumin Level 3.2 g/dL (3.5-5.1); Alkaline Phosphatase 53 U/L (38-126); Anion Gap 10 mmol/L (4-12); Aspartate Amino Transferase 24 U/L (17-59); Bilirubin,Total 0.8 mg/dL (0.2-1.3); Blood Urea Nitrogen 15 mg/dL (9-20); Calcium 8.5 mg/dL (8.4-10.2); Carbon Dioxide 23 mmol/L (22-30); Chloride 103 mmol/L (98-107); Estimated CRCL calculation 76 ml/min; Estimated Glomerular Filt Rate > 60; Glucose 116 mg/dL (65-110); Potassium 3.2 mmol/L (3.4-5.0); Sodium 136 mmol/L (137-145); Total Protein 5.3 g/dL (6.3-8.2)
[2025-01-14 09:25] LABS: Hematocrit 17.7 % (42.0-52.0); Hemoglobin 5.5 g/dL (14.0-18.0)
[2025-01-14 09:26] LABS: Hypochromasia 2+; Polychromasia 1+; Schistocytes None Seen
--- NOTE | 2025-01-14 09:34 | P.CDI_ITS ---
CDI Query Clarification Request Please clarify the status of the patient's anemia, if known. Anemia has been documented, please specify type of anemia if known: * Acute blood loss anemia * Chronic blood loss anemia * Anemia of chronic disease (CKD,neoplasm, other) * Aplastic anemia * Dilutional anemia * Iron Deficiency anemia * Pernicious anemia * Nutritional anemia (e.g., scorbutic anemia) * Other anemia * Unknown/unable to determine The medical chart reflects the following: (2) Acute on chronic anemia: Code(s): D64.9 - Anemia, unspecified Status: Acute (3) Lactic acidosis: Code(s): E87.20 - Acidosis, unspecified Status: Acute (4) Abnormal urinalysis: Code(s): R82.90 - Unspecified abnormal findings in urine Status: Acute Plan Patient has evidence of a large pulmonary embolism. Was recently diagnosed with DVTs in was already on Eliquis at the group home. Patient been admitted for treatment with heparin drip. CT demonstrates evidence of right heart strain with prior normal echocardiogram last month. Will continue heparin drip per protocol. Amazingly patient is not having any significant chest pain or respiratory distress despite his large pulmonary embolisms. Will obtain echocardiogram to further evaluate right heart strain. It sounds like the giacomo ent's family does not want aggressive treatment or thrombectomy. Family reportedly is considering transitioning to palliative care or hospice. Will place care coordination consult to provide family with information regarding palliative care and for to change the patient's advanced directives. Patient had previously verbalized wanting to be a DNR but paperwork at the group home still states patient is full code. Will need to monitor patient's hemoglobin closely given acute on chronic anemia in need for heparin drip. Will repeat CBC, coag panel in a.m.. Patient does have significant lactic acidosis likely due to a combination of factors id metformin use,, decreased perfusion and or some hepatic dysfunction. The patient did have lactic acidosis during his last hospitalization that did not completely normalize. Lactic acid is definitely higher than prior values. Metformin is on hold. Patient's lactic acid did improve after 1 L fluid bolus. Although the patient has generalized anasarca on exam is mucous membranes are dry any does not have evidence of JVD. Given prior normal echocardiogram I feel the patient could use some further intervascular volume repletion. Will give patient 1 more L IV fluids at 75 mL an hour and start the patient on albumin IV q.8 hours. Will repeat CMP in a.m.. Hgb 7/6: 7.9 7/7: 7.9 7/8: 5.5 <Delilah Saul RN - Last Filed: 01/14/25 09:38> Please clarify the status of the patient's anemia, if known. Anemia has been documented, please specify type of anemia if known: * Acute blood loss anemia * Chronic blood loss anemia * Anemia of chronic disease (CKD,neoplasm, other) * Aplastic anemia * Dilutional anemia * Iron Deficiency anemia * Pernicious anemia * Nutritional anemia (e.g., scorbutic anemia) * Other anemia * Unknown/unable to determine The medical chart reflects the following: (2) Acute on chronic anemia: Code(s): D64.9 - Anemia, unspecified Status: Acute (3) Lactic acidosis: Code(s): E87.20 - Acidosis, unspecified Status: Acute (4) Abnormal urinalysis: Code(s): R82.90 - Unspecified abnormal findings in urine Status: Acute Plan Patient has evidence of a large pulmonary embolism. Was recently diagnosed with DVTs in was already on Eliquis at the group home. Patient been admitted for treatment with heparin drip. CT demonstrates evidence of right heart strain with prior normal echocardiogram last month. Will continue heparin drip per protocol. Amazingly patient is not having any significant chest pain or respiratory distress despite his large pulmonary embolisms. Will obtain echocardiogram to further evaluate right heart strain. It sounds like the patient's family does not want aggressive treatment or thrombectomy. Family reportedly is considering transitioning to palliative care or hospice. Will place care coordination consult to provide family with information regarding pa lliative care and for to change the patient's advanced directives. Patient had previously verbalized wanting to be a DNR but paperwork at the group home still states patient is full code. Will need to monitor patient's hemoglobin closely given acute on chronic anemia in need for heparin drip. Will repeat CBC, coag panel in a.m.. Patient does have significant lactic acidosis likely due to a combination of factors id metformin use,, decreased perfusion and or some hepatic dysfunction. The patient did have lactic acidosis during his last hospitalization that did not completely normalize. Lactic acid is definitely higher than prior values. Metformin is on hold. Patient's lactic acid did improve after 1 L fluid bolus. Although the patient has generalized anasarca on exam is mucous membranes are dry any does not have evidence of JVD. Given prior normal echocardiogram I feel the patient could use some further intervascular volume repletion. Will give patient 1 more L IV fluids at 75 mL an hour and start the patient on albumin IV q.8 hours. Will repeat CMP in a.m.. Hgb 6: 7.9 7/7: 7.9 7/8: 5.5 <Kiara Fox APRN - Last Filed: 01/14/25 11:34> Provider Comments Likely acute blood loss but unable to determine. No obvious GI bleeding yet. Also a component of chronic blood loss <Kiara Fox APRN - Last Filed: 01/14/25 11:34>
[2025-01-14] MEDS: MICONAZOLE NITRATE 2% CREAM 30 GM TUBE 1 APPLIC TOPICAL ×2 (10:24→20:19)
[2025-01-14] MEDS: FLUTICASONE PROPIONATE 0.05% NA SPR 16 GM BTL (*BKC) 1 SPRAY NASAL ×2 (10:24→20:19)
[2025-01-14] MEDS: FLUTICASONE PROPIONATE 0.05% NA SPR 16 GM BTL (*BKC) 1 SPRAY XX (10:25)
[2025-01-14 10:39] LABS: Immature Platelet Fraction Pct 2.4 % (0.9-11.2); Mean Corpuscular HGB Conc 31.6 g/dl (32-36); Mean Corpuscular Hemoglobin 28.1 pg (26-34); Mean Corpuscular Volume 89.1 fl (80-100); Platelet Count Result 83 k/mm3 (150-375); Red Blood Count 1.92 M/mm3 (4.6-6.20); White Blood Count 4.6 K/mm3 (4.5-10.0)
[2025-01-14 10:43] LABS: Hematocrit 17.1 % (42.0-52.0); Hemoglobin 5.4 g/dL (14.0-18.0)
[2025-01-14] MEDS: SODIUM CHLORIDE 0.9% IV 250 ML 30 ML IV CONT (11:26)
[2025-01-14] MEDS: PANTOPRAZOLE SODIUM IV 40 MG VIAL IV PUSH ×2 (11:26→20:12)
[2025-01-14] MEDS: DONEPEZIL HCL 5 MG TABLET PO (20:12)
[2025-01-14] MEDS: DOXAZOSIN MESYLATE 2 MG TABLET PO (20:12)
[2025-01-14 21:09] LABS: Hematocrit 26.0 % (42.0-52.0); Hemoglobin 8.6 g/dL (14.0-18.0); Immature Granulocyte Percent A 2.0 % (0-0.5); Immature Platelet Fraction Pct 2.4 % (0.9-11.2); Immature Reticulocyte Fraction 12.9 % (3.0-15.9); Lymphocytes Absolute Auto 0.58 K/mm3 (0.9-3.2); Mean Corpuscular HGB Conc 33.1 g/dl (32-36); Mean Corpuscular Hemoglobin 28.8 pg (26-34); Mean Corpuscular Volume 87.0 fl (80-100); Nucleated Red Blood Cells Absolute Auto 0.000 K/mm3 (0.0-0.012); Nucleated Red Blood Cells Perc 0.0 % (0.0-0.2); Platelet Count Result 85 k/mm3 (150-375); Red Blood Count 2.99 M/mm3 (4.6-6.20); Reticulocyte Hemoglobin Conten 33.7 pg (28.2-36.6); Reticulocytes Absolute 0.04 10^6/uL (0.02-0.10); White Blood Count 6.1 K/mm3 (4.5-10.0)
[2025-01-14 21:17] LABS: Iron 107 ug/dL (49-181)
[2025-01-14 21:23] LABS: Alanine Aminotransferase 19 U/L (6-50); Albumin Level 4.0 g/dL (3.5-5.1); Alkaline Phosphatase 41 U/L (38-126); Anion Gap 10 mmol/L (4-12); Aspartate Amino Transferase 21 U/L (17-59); Bilirubin,Total 2.6 mg/dL (0.2-1.3); Blood Urea Nitrogen 13 mg/dL (9-20); Calcium 8.8 mg/dL (8.4-10.2); Carbon Dioxide 23 mmol/L (22-30); Chloride 105 mmol/L (98-107); Estimated CRCL calculation 75 ml/min; Estimated Glomerular Filt Rate > 60; Glucose 130 mg/dL (65-110); Magnesium 1.9 mg/dL (1.6-2.3); Potassium 3.1 mmol/L (3.4-5.0); Sodium 138 mmol/L (137-145); Total Protein 6.1 g/dL (6.3-8.2)
[2025-01-14 21:26] LABS: Percent Iron Saturation 83 % (20-50)
[2025-01-14 21:34] LABS: Anisocytosis 1+; Hypochromasia 1+; Poikilocytosis 1+
[2025-01-14 21:35] LABS: Schistocytes None Seen
[2025-01-14 21:36] LABS: Basophilic Stippling 1+
[2025-01-14 22:09] LABS: Vitamin B12 497.0 pg/mL (239-931)
--- NOTE | 2025-01-14 22:59 | PC.NURSE ---
At time of assessment, pt's spouse present in the room and explaining pt's routine. Per spouse, pt takes his meds crushed in applesauce but scheduled pain medication is left at the end so he does not end up refusing the meds prior to. When it was time to give pt his medicine, medicine was crushed and mixed with applesauce except for the pain pill. Spouse gave pt his medicine, after two bites of applesauce pt became aggravated and starting cussing at his spouse. Pt requested to be left alone. Spouse said she will leave pt alone at the moment and attempt to give him the rest of the applesauce later. Went in to recheck on pt and his spouse around 2149. New orders noted for pt to have PO potassium. Spouse was standing in the middle of the room and she stated she was just going to head home. Spouse appearing upset. Spouse told me she had attempted to give pt his meds but pt would just keep refusing and she did not know what else to do. I attempted to give pt his medication that was still in applesauce, as well, prior to spouse leaving. Pt began to cuss at me as well. Attempted to give pt his scheduled pain pill whole without applesauce, as a family member that was visiting prior said he was taking it better whole and with water. Pt began to make threats, stating If you don't get out of my face, I'm going to slap somebody. and If you don't leave me alone, I'm going to kick/punch somebody. PO pain medication and PO potassium not given at this time due to pt refusal. Documented in SEP. New orders seen put in for IV potassium by hospitalist @2224.
[2025-01-15] VITALS (11 sets, daily range): BP systolic 116–135; BP diastolic 57–69; PULSE 85–97; RESP 16–20; TEMP 36.1; O2SAT 92–97
[2025-01-15] MEDS: KCL 20 MEQ/SW 100 ML 100 ML 50 MEQ IVPB (01:56)
[2025-01-15] MEDS: HYDROcodone/acetaminophen (*CRX) 5-325 MG TABLET 1 TAB PO ×3 (04:36→14:34)
[2025-01-15] MEDS: LEVOTHYROXINE SODIUM 75 MCG TABLET PO (04:37)
[2025-01-15] MEDS: ALBUMIN HUMAN 25% 25 GM/100 ML 200 ML IVPB ×2 (05:09→14:34)
[2025-01-15 06:13] LABS: Hematocrit 24.4 % (42.0-52.0); Hemoglobin 8.2 g/dL (14.0-18.0); Immature Granulocyte Percent A 0.9 % (0-0.5); Immature Platelet Fraction Pct 2.6 % (0.9-11.2); Lymphocytes Absolute Auto 0.70 K/mm3 (0.9-3.2); Mean Corpuscular HGB Conc 33.6 g/dl (32-36); Mean Corpuscular Hemoglobin 29.2 pg (26-34); Mean Corpuscular Volume 86.8 fl (80-100); Nucleated Red Blood Cells Absolute Auto 0.000 K/mm3 (0.0-0.012); Nucleated Red Blood Cells Perc 0.0 % (0.0-0.2); Platelet Count Result 80 k/mm3 (150-375); Red Blood Count 2.81 M/mm3 (4.6-6.20); White Blood Count 5.6 K/mm3 (4.5-10.0)
[2025-01-15 06:22] LABS: Partial Thromboplastin Time 42.6 Seconds (22.3-36.8)
--- NOTE | 2025-01-15 08:26 | P.PNIM_ITS ---
Progress Note: A&P Assessment and Plan (1) Pulmonary embolism: Qualifiers: Acute cor pulmonale presence: with acute cor pulmonale Chronicity: acute Pulmonary embolism type: unspecified Qualified Code(s): I26.09 - Other pulmonary embolism with acute cor pulmonale Code(s): I26.99 - Other pulmonary embolism without acute cor pulmonale Status: Acute (2) Acute on chronic anemia: Code(s): D64.9 - Anemia, unspecified Status: Acute (3) Lactic acidosis: Code(s): E87.20 - Acidosis, unspecified Status: Acute (4) Abnormal urinalysis: Code(s): R82.90 - Unspecified abnormal findings in urine Status: Acute (5) Goals of care, counseling/discussion: Code(s): Z71.89 - Other specified counseling Status: Acute (6) Acute anemia: Code(s): D64.9 - Anemia, unspecified Status: Acute Plan Acute PE ACTIVE, monitoring Right heart strain on CT Recent diagnosis of DVT at [facility], was on Eliquis DNR/DNI. Spoke with his daughter at the bedside and the patient -- heparin drip on hold for acute drop in Hgb --Not wanting aggressive interventions. Declined option for transfer to higher acuity, but that is appropriate because goals of care primarily palliative with limited interventions. Giving blood. Family agree with plan to hold heparin drip and give 2 units of blood. 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 Possible acute GI bleeding but not planning intervention per discussion with family --Follow blood count and transfuse as able. CBC this afternoon Goals of Care Counseling, Discussion ACTIVE DNR/DNI with labs and medications. Spoke with patient, , and daughter at bedside and not planning to transfer to outside hospital. Blood count dropped from 7.9 to 5.5>5.4 78 and transfused 2 units. Discussed option for GI consult for scope and declined interventions. Also no plan for invasive lines, reviewed option for central line and vasopressors, but would likely be minimal benefit since underlying cause of hypotension would be blood clot or bleeding which have limited options for intervention. Discussed that drop in blood count is complicated since holding drip and blood clots are causing right strain, could lead to hemodynamic changes and medical instability. Planning transfusion. Family aware of potential for deterioration. Not interested in hospice at this point. --Agree with plan for labs, CT abd/pelvis this afternoon if Hgb dropping. Also could send for evaluation of abdominal pain if not improving Acute Pain IMPROVED, monitoring Tylenol, Vicodin,add Morphine 2-4mg q4 prn since not taking PO well --CT abd/pelvis if not improving given recent fluid collection Abdominal pain Recent bladder rupture, treated at [place]. CT abd/pelvis at OSH 01/08 showed evolving sequelae of extraperitoneal bladder rupture within an capsulated mixed gas-fluid collection in the space Retzius and fluid component of which is decreased in size compared to prior examination in continuity with the anterior urinary bladder wall defect fluid directing subjacent to the rectus abdominus musculature no new organized or drainable fluid collection to partially imaged subsegmental bilateral pulmonary emboli as previously seen on the prior CT from 12/27 had been treated with Zosyn, Flagyl and Vanc, then cefepime and Vanc. Was seen by ID. DC's cefepime and vanc added linezolid on 01/03 MRSA Bacteremia Recently treated for MRSA bacteremia, completed 01/13. TTE 01/03 no vegetations. Also treated for sacral pyoderma gangrenosum. Was seen by dermatology and recently completed a steroid taper --Blood cultures x2 --Check ESR, CRP Confusion Hx dementia. Multiple medical problems and having pain requiring opiates. Also recent infection --Workup for infection, anemia Hypokalemia Hypophosphatemia ACTIVE Potassium 3.1, Phos 1.9. 20meq Kcl, 15mmol kphos, and 250 kphos tabs BID x2 doses --Repeat potassium and phos in AM Lactic acidosis RESOLVED significant lactic acidosis likely due to a combination of factors id metformin use,, decreased perfusion and or some hepatic dysfunction. The patient did have lactic acidosis during his last hospitalization that did not completely normalize. Lactic acid is definitely higher than prior values but this is in the setting of acute PE. Metformin is on hold. Patient's lactic acid did improve after 1 L fluid bolus. UTI RESOLVED Patient has abnormal urinalysis that could be consistent with UTI. Patient but being treated for UTI with linezolid as outpatient. Linezolid will be continued until the 8th. Patient received 1 dose of Rocephin in the ER which will be discontinued. Urine cultures are pending. Patient's condition: Serious, high risk for deterioration Prognosis: Poor MEDICAL DECISION MAKING NARRATIVE -Patient seen and examined at bedside -Collaborated with patient's nurse and family at the bedside in detail and addressed all concerns -Labs, electrolytes, radiology, investigations and test results reviewed -ED/Consult/Nursing/Ancilliary notes on the chart reviewed and appreciated Patient has been admitted as observation status. Time Spent With Patient Time: 57 minutes Subjective Date/time seen: 01/15/25 08:26 Interval history: H&H 5.4/17.1 up to 8.6> 8.2/24.4 Having suprapubic pain No fevers. Is confused and nonfocal neuro exam Review of Systems Review of Systems: Review of systems unobtainable due to patient's dementia Exam Narrative: Weight 88.9 kg BMI 25.9 General - Awake and alert. No acute distress Eyes - PERRLA, EOM intact ENT - No thrush, No erythema Neck - No noticeable or palpable swelling Lymph Nodes - No lymphadenopathy Cardiovascular - RRR no m/r/g, no JVD Lungs: Clear to auscultation, decreased No wheezing, use of accessory muscles, no crackles Skin - Skin warm and dry, no rashes. Wounds to arms wrapped Abdomen - Normal bowel sounds, abdomen soft, suprapubic tender Extremities - Generalized edema, left >right leg cyanosis or clubbing Musculoskeletal - 4/5 strength, normal range of motion, no swollen or erythematous joints. Neurological ? Alert and oriented x 3, CN 2-12 grossly intact. Psych: Normal mood and affect Objective Data Vital Signs Vital Signs: Vital Signs - 24 hr 01/14/25 11:58 01/14/25 12:00 01/14/25 12:14 Temperature 97.3 F L 96.6 F L Pulse Rate 93 98 96 Respiratory Rate 18 18 Blood Pressure 90/40 L 91/37 L Pulse Oximetry 96 94 Oxygen Delivery 01/14/25 13:14 01/14/25 14:00 01/14/25 14:14 Temperature 96.9 F L 98.4 F 98.4 F Pulse Rate 95 92 92 Respiratory Rate 18 16 16 Blood Pressure 112/57 L 92/43 L 92/43 L Pulse Oximetry 97 97 97 Oxygen Delivery 01/14/25 15:34 01/14/25 15:55 01/14/25 16:00 Temperature 96.8 F L 96.8 F L Pulse Rate 93 93 95 Respiratory Rate 18 18 Blood Pressure 108/43 L 108/43 L Pulse Oximetry 96 96 Oxygen Delivery 01/14/25 16:11 01/14/25 17:11 01/14/25 19:30 Temperature 97.4 F L 97.2 F L 98.2 F Pulse Rate 96 91 95 Respiratory Rate 18 16 16 Blood Pressure 118/49 L 121/53 L 126/55 L Pulse Oximetry 94 91 93 Oxygen Delivery 01/14/25 19:30 01/14/25 20:00 01/14/25 20:10 Temperature 98.2 F Pulse Rate 95 93 Respiratory Rate 16 20 Blood Pressure 126/55 L Pulse Oximetry 93 Oxygen Delivery 01/14/25 20:10 01/15/25 00:00 01/15/25 04:00 Temperature Pulse Rate 97 96 Respiratory Rate Blood Pressure Pulse Oximetry Oxygen Delivery Room Air 01/15/25 04:30 Temperature 97 F L Pulse Rate 95 Respiratory Rate 20 Blood Pressure 120/57 L Pulse Oximetry 95 Oxygen Delivery Intake/Output Intake/Output: Intake & Output 01/12/25 01/13/25 01/14/25 01/15/25 23:59 23:59 23:59 23:59 Intake Total 1050 2252.0 2195.8 450 Output Total 2500 1950 1100 Balance 1050 -248.0 245.8 -650 Meds/Results Medications: Active Medications Generic Name Dose Route Start Last Admin Trade Name Freq PRN Reason Stop Dose Admin Acetaminophen 650 mg 01/12/25 21:07 Acetaminophen 325 Mg Tablet PO Q6H PRN pain 1-3 or fever Hydrocodone Bitart/Acetaminophen 1 tab 01/13/25 09:00 01/15/25 04:36 Hydrocodone/Acetaminophen (*Crx) 5-325 Mg Tablet PO 1 tab Q6H NEHEMIAH Administration Aspirin 81 mg 01/13/25 09:00 01/14/25 08:09 Aspirin 81 Mg Enteric Tablet PO 81 mg DAILY NEHEMIAH Administration Calcium Carbonate 500 mg 01/13/25 09:00 01/14/25 08:12 Calcium/Vitamin D 500 Mg/5 Mcg (200 I.U.) Tablet PO 500 mg DAILY NEHEMIAH Administration Dextrose 12.5 gm 01/13/25 02:29 Dextrose 50% 25 Gm/50 Ml Syringe IV PUSH PRN PRN Hypoglycemia Protocol Dibucaine 1 applic 01/12/25 21:07 Dibucaine 1% Ointment 30 Gm Tube TOPICAL QID PRN Pain of groin ulcer Donepezil HCl 5 mg 01/12/25 21:10 01/14/25 20:12 Donepezil Hcl 5 Mg Tablet PO 5 mg QHS NEHEMIAH Administration Doxazosin Mesylate 2 mg 01/12/25 21:25 01/14/25 20:12 Doxazosin Mesylate 2 Mg Tablet PO 2 mg QHS NEHEMIAH Administration Dutasteride 0.5 mg 01/13/25 09:00 01/14/25 08:12 Dutasteride 0.5 Mg Capsule PO 0.5 mg DAILY NEHEMIAH Administration Fluticasone Propionate 1 spray 01/12/25 21:30 01/14/25 20:19 Fluticasone Propionate 0.05% Na Spr 16 Gm Btl (*Bkc) NASAL 1 spray Q12HR NEHEMIAH Administration Fluticasone Propionate 1 spray 01/13/25 09:00 01/14/25 10:25 Fluticasone Propionate 0.05% Na Spr 16 Gm Btl (*Bkc) XX 1 spray DAILY NEHEMIAH Administration Glucagon 1 mg 01/13/25 02:29 Glucagon For Inj 1 Mg Vial IM PRN PRN Hypoglycemia Protocol Glucose 15 gm 01/13/25 02:29 Glucose Oral Gel 15 Gm Of Glucse In 37.5 Gm Tube PO PRN PRN Hypoglycemia Protocol Heparin Sodium (Porcine) 7,000 units 01/12/25 17:33 Heparin Sodium 5,000 Units/Ml Vial IV PUSH PRN PRN aPTT less than 55 seconds Heparin Sodium (Porcine) 3,500 units 01/12/25 17:33 Heparin Sodium 5,000 Units/Ml Vial IV PUSH PRN PRN aPTT 55 - 70 seconds Heparin Sodium/Dextrose 25,000 units in 250 mls @ 0 mls/hr 01/12/25 17:35 01/14/25 10:22 Heparin Sodium/D5w 100 Units/Ml IV CONT 0 units/hr .Q0M NEHEMIAH 0 mls/hr Titration Protocol 0 UNITS/HR Ceftriaxone Sodium 1 gm in 50 mls @ 100 mls/hr 01/13/25 18:00 01/14/25 17:11 Rocephin 1 Gm/Ns 50 Ml IVPB 100 mls/hr Q24H NEHEMIAH Administration Dextrose 1,000 mls @ 100 mls/hr 01/13/25 02:29 Dextrose 5% 1,000 Ml IVPB PRN PRN Hypoglycemia Protocol Albumin Human 200 mls @ 60 mls/hr 01/13/25 06:00 01/15/25 05:09 Albutein IVPB 60 mls/hr Q8HR NEHEMIAH Administration Potassium Phosphate 15 mmol/ 255 mls @ 63.75 mls/hr 01/15/25 08:45 Sodium Chloride IVPB 01/15/25 12:44 ONCE ONE Insulin Aspart 2 - 5 units 01/13/25 08:00 01/14/25 16:42 Insulin Aspart (*Bkc) 100 Units/Ml SUB-Q Not Given TIDWM [facility] Protocol Levothyroxine Sodium 75 mcg 01/13/25 06:30 01/15/25 04:37 Levothyroxine Sodium 75 Mcg Tablet PO 75 mcg DAILY@0630 NEHEMIAH Administration Metoprolol Succinate 25 mg 01/13/25 09:00 01/14/25 08:09 Metoprolol Succinate Ext Rel 25 Mg Tabcr PO 25 mg DAILY NEHEMIAH Administration Miconazole Nitrate 1 applic 01/13/25 09:00 01/14/25 20:19 Miconazole Nitrate 2% Cream 30 Gm Tube TOPICAL 1 applic Q12HR NEHEMIAH Administration Oxycodone HCl 5 mg 01/12/25 21:07 01/14/25 17:10 Oxycodone Hcl (*Crx) 5 Mg Tab Ir PO 5 mg Q6H PRN Administration pain 4-10 Pantoprazole Sodium 40 mg 01/14/25 10:30 01/14/25 20:12 Pantoprazole Sodium Iv 40 Mg Vial IV PUSH 40 mg Q12HR NEHEMIAH Administration Polyethylene Glycol 17 gm 01/12/25 21:07 Polyethylene Glycol 3350 17 Gm Powd.Pack PO DAILY PRN constipation Senna/Docusate Sodium 2 tab 01/13/25 09:00 01/14/25 20:12 Senna/Docusate Sodium Tablet PO 2 tab Q12HR NEHEMIAH Administration Sodium Phosphate 250 mg 01/15/25 09:00 Potassium Phos/Sodium Phos 250 Mg Tablet PO 01/15/25 17:01 BID [facility] Radiology Results: ITS Impressions Chest CTA 01/12/25 16:59 IMPRESSION: Multiple pulmonary emboli, large clot burden, and evidence of right heart strain. Trace right and small left pleural effusions. 4 mm right upper lobe pulmonary nodule, consider an optional follow-up low-dose noncontrast CT of the chest in one year if the patient is at high risk. Gallbladder hydrops, likely secondary to fasting the absence of right upper quadrant pain or biliary labs abnormalities. Innumerable pancreatic cysts, which may represent the sequela of chronic pancreatitis, or less likely the uncommon diagnosis of isolated polycystic pancreatic disease. Correlate for pancreatic enzyme abnormalities and any symptoms of vague abdominal pain. Consider nonemergent MRI of the pancreas if there are abdominal symptoms. Results reported telephonically to Dr. Haque by Dr. Barry at 5:19 PM on 01/12/2025. Labs Labs: Laboratory Results - last 24 hr 01/14/25 01/14/25 01/14/25 03:40 08:50 10:30 WBC 5.1 4.6 RBC 1.95 L 1.92 L Hgb 5.5 L* 5.4 L* Hct 17.7 L* 17.1 L* MCV 90.8 89.1 MCH 28.2 28.1 MCHC 31.1 L 31.6 L RDW 17.6 H 17.2 H Plt Count 90 L 83 L MPV 10.9 H 9.7 Immature Gran % (Auto) 0.4 Neut % (Auto) 83.1 H Lymph % (Auto) 11.4 L [place] % (Auto) 4.7 Eos % (Auto) 0.4 Baso % (Auto) 0.0 L Lymph # (Auto) 0.58 L [place] # (Auto) 0.2 Eos # (Auto) 0.0 Baso # (Auto) 0.0 Abs Immat Gran (auto) 0.02 Absolute Neuts (auto) 4.2 Absolute Nucleated RBC 0.000 Band Neutrophils % Not Reportable Nucleated RBC % 0.0 Platelet Estimate Decreased % Immature Plt Fraction 3.6 2.4 Polychromasia 1+ Hypochromasia 2+ Poikilocytosis Basophilic Stippling Anisocytosis Schistocytes None seen Absolute Retic Percent Retic Immature Retic Fraction Retic Hgb Content APTT Sodium 136 L Potassium 3.2 L Chloride 103 Carbon Dioxide 23 Anion Gap 10 BUN 15 D Creatinine 0.72 Estim Creat Clear Calc 76 Estimated GFR > 60 Glucose 116 H POC Capillary Glucose Lactic Acid 1.6 Calcium 8.5 Phosphorus Magnesium Iron TIBC % Saturation Total Bilirubin 0.8 AST 24 ALT 19 Alkaline Phosphatase 53 Lactate Dehydrogenase Total Protein 5.3 L Albumin 3.2 L Vitamin B12 Blood Type AB Negative Antibody Screen Negative Crossmatch See Detail 01/14/25 01/14/25 01/14/25 11:19 16:32 20:08 WBC RBC Hgb Hct MCV MCH MCHC RDW Plt Count MPV Immature Gran % (Auto) Neut % (Auto) Lymph % (Auto) [place] % (Auto) Eos % (Auto) Baso % (Auto) Lymph # (Auto) [place] # (Auto) Eos # (Auto) Baso # (Auto) Abs Immat Gran (auto) Absolute Neuts (auto) Absolute Nucleated RBC Band Neutrophils % Nucleated RBC % Platelet Estimate % Immature Plt Fraction Polychromasia Hypochromasia Poikilocytosis Basophilic Stippling Anisocytosis Schistocytes Absolute Retic Percent Retic Immature Retic Fraction Retic Hgb Content APTT Sodium Potassium Chloride Carbon Dioxide Anion Gap BUN Creatinine Estim Creat Clear Calc Estimated GFR Glucose POC Capillary Glucose 157 H 154 H 137 H Lactic Acid Calcium Phosphorus Magnesium Iron TIBC % Saturation Total Bilirubin AST ALT Alkaline Phosphatase Lactate Dehydrogenase Total Protein Albumin Vitamin B12 Blood Type Antibody Screen Crossmatch 01/14/25 01/14/25 01/14/25 20:58 20:59 21:00 WBC 6.1 RBC 2.99 L Hgb 8.6 L D Hct 26.0 L MCV 87.0 MCH 28.8 MCHC 33.1 RDW 15.9 H Plt Count 85 L MPV 10.0 Immature Gran % (Auto) 2.0 H Neut % (Auto) 82.9 H Lymph % (Auto) 9.5 L [place] % (Auto) 4.9 Eos % (Auto) 0.5 Baso % (Auto) 0.2 Lymph # (Auto) 0.58 L [place] # (Auto) 0.3 Eos # (Auto) 0.0 Baso # (Auto) 0.0 Abs Immat Gran (auto) 0.12 H Absolute Neuts (auto) 5.1 Absolute Nucleated RBC 0.000 Band Neutrophils % Not Reportable Nucleated RBC % 0.0 Platelet Estimate Decreased % Immature Plt Fraction 2.4 Polychromasia Hypochromasia 1+ Poikilocytosis 1+ Basophilic Stippling 1+ Anisocytosis 1+ Schistocytes None seen Absolute Retic 0.04 Percent Retic 1.26 Immature Retic Fraction 12.9 Retic Hgb Content 33.7 APTT Sodium 138 Potassium 3.1 L Chloride 105 Carbon Dioxide 23 Anion Gap 10 BUN 13 Creatinine 0.73 Estim Creat Clear Calc 75 Estimated GFR > 60 Glucose 130 H POC Capillary Glucose Lactic Acid Calcium 8.8 Phosphorus 1.9 L Magnesium 1.9 Iron 107 TIBC 129 L % Saturation 83 H Total Bilirubin 2.6 H AST 21 ALT 19 Alkaline Phosphatase 41 Lactate Dehydrogenase 188 Total Protein 6.1 L Albumin 4.0 Vitamin B12 497.0 Blood Type Antibody Screen Crossmatch 01/15/25 01/15/25 05:39 07:26 WBC 5.6 RBC 2.81 L Hgb 8.2 L Hct 24.4 L MCV 86.8 MCH 29.2 MCHC 33.6 RDW 16.1 H Plt Count 80 L MPV 10.1 Immature Gran % (Auto) 0.9 H Neut % (Auto) 80.3 H Lymph % (Auto) 12.5 L [place] % (Auto) 5.5 Eos % (Auto) 0.4 Baso % (Auto) 0.4 Lymph # (Auto) 0.70 L [place] # (Auto) 0.3 Eos # (Auto) 0.0 Baso # (Auto) 0.0 Abs Immat Gran (auto) 0.05 H Absolute Neuts (auto) 4.5 Absolute Nucleated RBC 0.000 Band Neutrophils % Nucleated RBC % 0.0 Platelet Estimate % Immature Plt Fraction 2.6 Polychromasia Hypochromasia Poikilocytosis Basophilic Stippling Anisocytosis Schistocytes Absolute Retic Percent Retic Immature Retic Fraction Retic Hgb Content APTT 42.6 H Sodium Potassium Chloride Carbon Dioxide Anion Gap BUN Creatinine Estim Creat Clear Calc Estimated GFR Glucose POC Capillary Glucose 134 H Lactic Acid Calcium Phosphorus Magnesium Iron TIBC % Saturation Total Bilirubin AST ALT Alkaline Phosphatase Lactate Dehydrogenase Total Protein Albumin Vitamin B12 Blood Type Antibody Screen Crossmatch Quality VTE Prophylaxis VTE prophylaxis: mechanical ordered Hospitalist MIPS Advance Care Plan I have confirmed that the patient's Advanced Care Plan is present, code status is documented, or surrogate decision maker is listed in patient medical record.: Yes Medication Reconciliation I have utilized all available resources to obtain, update and review the patients current medications (includes all prescriptions, OTC, herbals, cannabis, and nutritional supplements).: Yes
[2025-01-15] MEDS: POTASSIUM PHOS,M-BASIC-D-BASIC 15 MMOL in SODIUM CHLORIDE 0.9% IV 250 ML 63.75 MMOL IVPB (09:28)
[2025-01-15] MEDS: METOPROLOL SUCCINATE EXT REL 25 MG TABCR PO (09:28)
[2025-01-15] MEDS: ASPIRIN 81 MG ENTERIC TABLET PO (09:29)
[2025-01-15] MEDS: PANTOPRAZOLE SODIUM IV 40 MG VIAL IV PUSH ×2 (09:35→22:58)
[2025-01-15] MEDS: MICONAZOLE NITRATE 2% CREAM 30 GM TUBE 1 APPLIC TOPICAL ×2 (09:36→23:00)
[2025-01-15] MEDS: FLUTICASONE PROPIONATE 0.05% NA SPR 16 GM BTL (*BKC) 1 SPRAY XX ×2 (09:36→23:00)
[2025-01-15] MEDS: FLUTICASONE PROPIONATE 0.05% NA SPR 16 GM BTL (*BKC) 1 SPRAY NASAL (09:37)
[2025-01-15] MEDS: oxyCODONE HCL (*CRX) 5 MG TAB IR PO (12:41)
[2025-01-15] MEDS: CEPHALEXIN 500 MG CAPSULE PO (12:42)
[2025-01-15 15:16] LABS: Hematocrit 24.9 % (42.0-52.0); Hemoglobin 8.3 g/dL (14.0-18.0); Immature Granulocyte Percent A 0.9 % (0-0.5); Immature Platelet Fraction Pct 2.5 % (0.9-11.2); Lymphocytes Absolute Auto 0.86 K/mm3 (0.9-3.2); Mean Corpuscular HGB Conc 33.3 g/dl (32-36); Mean Corpuscular Hemoglobin 29.0 pg (26-34); Mean Corpuscular Volume 87.1 fl (80-100); Nucleated Red Blood Cells Absolute Auto 0.000 K/mm3 (0.0-0.012); Nucleated Red Blood Cells Perc 0.0 % (0.0-0.2); Platelet Count Result 84 k/mm3 (150-375); Red Blood Count 2.86 M/mm3 (4.6-6.20); White Blood Count 5.9 K/mm3 (4.5-10.0)
[2025-01-15 15:52] LABS: Anion Gap 11 mmol/L (4-12); Blood Urea Nitrogen 10 mg/dL (9-20); CRP 7.7 mg/dL (<1.0); Calcium 8.8 mg/dL (8.4-10.2); Carbon Dioxide 24 mmol/L (22-30); Chloride 106 mmol/L (98-107); Estimated CRCL calculation 79 ml/min; Estimated Glomerular Filt Rate > 60; Glucose 113 mg/dL (65-110); Potassium 3.1 mmol/L (3.4-5.0); Sodium 141 mmol/L (137-145)
[2025-01-15 16:47] LABS: Anisocytosis 1+
[2025-01-15 16:48] LABS: Schistocytes None Seen
[2025-01-15] MEDS: MORPHINE SULFATE (*CRX) 2 MG/ML INJ IV PUSH (18:11)
[2025-01-15] MEDS: POTASSIUM CHLORIDE INJ 40 MEQ in SODIUM CHLORIDE 0.9% IV 500 ML 130 MEQ IVPB (18:11)
--- NOTE | 2025-01-15 20:02 | PC.NURSE ---
at 1833, pt had a 11 beat run of vtach. hospitalist notified verbally and was shown tele strip. provider was then notified at that time that pt lower abdomen was tender and firm. provider was told that this rn bladder scanned pt about 15 minutes before the vtach and that he had less than 2ml of urine in bladder, but the bladder scanner was picking up a large collection of fluid on the left side of bladder (over 450 mL). provider then ordered a ct scan of the abdomen to assess. pt was in ct at the time of shift change
[2025-01-15 21:21] LABS: Hematocrit 24.8 % (42.0-52.0); Hemoglobin 8.2 g/dL (14.0-18.0); Immature Platelet Fraction Pct 2.7 % (0.9-11.2); Mean Corpuscular HGB Conc 33.1 g/dl (32-36); Mean Corpuscular Hemoglobin 28.9 pg (26-34); Mean Corpuscular Volume 87.3 fl (80-100); Platelet Count Result 81 k/mm3 (150-375); Red Blood Count 2.84 M/mm3 (4.6-6.20); White Blood Count 5.8 K/mm3 (4.5-10.0)
[2025-01-15 21:29] LABS: Magnesium 1.8 mg/dL (1.6-2.3)
[2025-01-15 21:36] LABS: Partial Thromboplastin Time 44.4 Seconds (22.3-36.8)
[2025-01-15] MEDS: metroNIDAZOLE 500 MG/ISO 100ML 500 MG/100 ML BAG 100 MG IVPB (21:56)
[2025-01-15 21:59] LABS: Anisocytosis 3+; Band Neutrophils Percent 1 % (0-6); Eosinophils Absolute Manual 0.05 K/mm3 (0.02-0.50); Eosinophils Percent Manual 1 % (0-4); Lymphocytes Absolute Manual 0.52 K/mm3 (1.1-4.5); Lymphocytes Percent Manual 9.0 % (18-44); Monocytes Absolute Manual 0.34 K/mm3 (0.1-0.90); Monocytes Percent Manual 6 % (3-9); Neutrophils Absolute Manual 4.87 K/mm3 (1.3-6.7); Neutrophils Percent Manual 83 % (46-73); Schistocytes None Seen; Total Cells Counted 100
[2025-01-15 22:00] LABS: Macrocytosis 2+ (NORMAL)
[2025-01-15] MEDS: CEFEPIME 2 GM in SODIUM CHLORIDE 0.9% IV 50 ML 100 ML IVPB (22:58)
[2025-01-16] VITALS (10 sets, daily range): BP systolic 110–142; BP diastolic 59–71; PULSE 95–110; RESP 16–20; TEMP 36.2–36.6; O2SAT 96–98
[2025-01-16] MEDS: LINEZOLID 600 MG/300 ML 600 MG/300 ML SOLN 300 MG IVPB ×2 (00:03→12:50)
[2025-01-16] MEDS: HEPARIN SOD/D5W 100 UNITS/ML 25,000 UNITS/250 ML BAG 7.5 UNITS IV CONT (00:14)
[2025-01-16] MEDS: MAGNESIUM SULF 2 GM/WATER 50ML 2 GM/50 ML BAG IVPB (01:19)
[2025-01-16] MEDS: ALBUMIN HUMAN 25% 25 GM/100 ML 200 ML IVPB ×3 (02:59→16:49)
[2025-01-16] MEDS: LEVOTHYROXINE SODIUM 75 MCG TABLET PO (03:48)
[2025-01-16] MEDS: HYDROcodone/acetaminophen (*CRX) 5-325 MG TABLET 1 TAB PO ×4 (03:48→20:40)
[2025-01-16 05:56] LABS: Add Urine Microscopic? YES; Appearance Urine Cloudy (Clear); Glucose Urine UA 3+ mg/dL (Negative); Leukocyte Esterase Ur 2+ LEU/UL (Negative); Nitrate Urine Negative (Negative); Specific Grav Ur 1.027 (1.001-1.035)
[2025-01-16 05:58] LABS: Hematocrit 25.0 % (42.0-52.0); Hemoglobin 8.2 g/dL (14.0-18.0); Immature Platelet Fraction Pct 2.3 % (0.9-11.2); Mean Corpuscular HGB Conc 32.8 g/dl (32-36); Mean Corpuscular Hemoglobin 29.1 pg (26-34); Mean Corpuscular Volume 88.7 fl (80-100); Platelet Count Result 85 k/mm3 (150-375); Red Blood Count 2.82 M/mm3 (4.6-6.20); White Blood Count 6.4 K/mm3 (4.5-10.0)
[2025-01-16 06:06] LABS: Anion Gap 13 mmol/L (4-12); Blood Urea Nitrogen 10 mg/dL (9-20); Calcium 9.1 mg/dL (8.4-10.2); Carbon Dioxide 21 mmol/L (22-30); Chloride 106 mmol/L (98-107); Estimated CRCL calculation 82 ml/min; Estimated Glomerular Filt Rate > 60; Glucose 120 mg/dL (65-110); Potassium 3.1 mmol/L (3.4-5.0); Sodium 140 mmol/L (137-145)
[2025-01-16 06:19] LABS: Partial Thromboplastin Time 85.6 Seconds (22.3-36.8)
[2025-01-16] MEDS: metroNIDAZOLE 500 MG/ISO 100ML 500 MG/100 ML BAG 100 MG IVPB ×3 (06:27→21:56)
[2025-01-16 06:46] LABS: Band Neutrophils Percent 13 % (0-6); Eosinophils Absolute Manual 0.06 K/mm3 (0.02-0.50); Eosinophils Percent Manual 1 % (0-4); Lymphocytes Absolute Manual 0.70 K/mm3 (1.1-4.5); Lymphocytes Percent Manual 11 % (18-44); Monocytes Absolute Manual 0.12 K/mm3 (0.1-0.90); Monocytes Percent Manual 2 % (3-9); Neutrophils Absolute Manual 5.50 K/mm3 (1.3-6.7); Neutrophils Percent Manual 73 % (46-73); Schistocytes None Seen; Total Cells Counted 100
--- NOTE | 2025-01-16 07:08 | P.PNIM_ITS ---
Progress Note: A&P Assessment and Plan (1) Pulmonary embolism: Qualifiers: Acute cor pulmonale presence: with acute cor pulmonale Chronicity: acute Pulmonary embolism type: unspecified Qualified Code(s): I26.09 - Other pulmonary embolism with acute cor pulmonale Code(s): I26.99 - Other pulmonary embolism without acute cor pulmonale Status: Acute (2) Acute on chronic anemia: Code(s): D64.9 - Anemia, unspecified Status: Acute (3) Lactic acidosis: Code(s): E87.20 - Acidosis, unspecified Status: Acute (4) Abnormal urinalysis: Code(s): R82.90 - Unspecified abnormal findings in urine Status: Acute (5) Goals of care, counseling/discussion: Code(s): Z71.89 - Other specified counseling Status: Acute (6) Acute anemia: Code(s): D64.9 - Anemia, unspecified Status: Acute Plan Acute PE ACTIVE, monitoring Right heart strain on CT Recent diagnosis of DVT at , was on Eliquis DNR/DNI. Spoke with his daughter and his at the bedside and the patient -- heparin drip on hold for acute drop in Hgb. Spoke with family and held heparin drip and gave 2 units of blood. No plan for invasive interventions. Resumed low dose heparin drip since Hgb stable. Titrating for low PTT goal, 45- 80. No bolus. Adjusting rate only q12 to minimize sticks since partially comfort goals. Started at 750units/hr, 44<85. Reduced to 500units/hr PTT was supratherapeutic and had acute blood loss. --Not wanting aggressive interventions. Declined option for transfer to higher acuity, but that is appropriate because goals of care primarily palliative with limited interventions. 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 Possible acute GI bleeding but not planning intervention per discussion with family --Follow blood count and transfuse as able --Restarted low dose heparin drip and checking CBC, PTT q12 --H&H stable at 8.2/25 Tachycardia HR 97-110 Blood pressure 121/60 --Improving --Hold albumin overnight, resume if more tachycardic or hypotensive Abdominal Abscess Abdominal pain ACTIVE, acute Recent bladder rupture, treated at [place]. CT abd/pelvis at OSH 01/08 showed evolving sequelae of extraperitoneal bladder rupture within an capsulated mixed gas-fluid collection in the space Retzius and fluid component of which is decreased in size compared to prior examination in continuity with the anterior urinary bladder wall defect fluid directing subjacent to the rectus abdominus musculature no new organized or drainable fluid collection to partially imaged subsegmental bilateral pulmonary emboli as previously seen on the prior CT from 12/27 had been treated with Zosyn, Flagyl and Vanc, then cefepime and Vanc. Was seen by ID. DC'd cefepime and vanc added linezolid on 01/03 Spoke with family and not pursuing surgical options given comorbidities --Started empiric Cefepime, Flagyl, zyvox. Monitor thrombocytopenia, stable 1. Multiple abscesses seen anterior to the urinary bladder. 2. Thickened wall of the gallbladder suggestive of cystitis. 3. Free fluid seen in the pelvis and paracolic gutters. 4. Left hydronephrotic changes with no definite stones. 5. Constipation. 6. Bilateral pleural effusion with adjacent atelectasis. 7. Large left renal cyst. 8. Polycystic pancreas. 9. Bilateral fat containing inguinal hernias. Constipation Personally reviewed CT and constipation visible --Continue miralax daily, bisacodyl suppository hs if no BM in 48 hours. Goals of Care Counseling, Discussion ACTIVE DNR/DNI with labs and medications. Spoke with patient, , and daughter at bedside and not planning to transfer to outside hospital. Blood count dropped from 7.9 to 5.5>5.4 01/14 and transfused 2 units. Discussed option for GI consult for scope and declined interventions. Also no plan for invasive lines, reviewed option for central line and vasopressors, but would likely be minimal benefit since underlying cause of hypotension would be blood clot or bleeding which have limited options for intervention. Discussed that drop in blood count is complicated since holding drip and blood clots are causing right strain, could lead to hemodynamic changes and medical instability. Planning transfusion. Family aware of potential for deterioration. Not interested in hospice at this point. Acute Pain IMPROVED, monitoring Tylenol, Vicodin,add Morphine 2-4mg q4 prn since not taking PO well MRSA Bacteremia Recently treated for MRSA bacteremia, completed 01/13. TTE 01/03 no vegetations. Also treated for sacral pyoderma gangrenosum. Was seen by dermatology and recently completed a steroid taper --Blood cultures x2 --Check ESR, CRP Confusion Hx dementia. Multiple medical problems and having pain requiring opiates. Also recent infection --Workup for infection, anemia Hypokalemia Hypophosphatemia Hypomagnesemia ACTIVE 01/15 Potassium 3.1, Phos 1.9. 20meq Kcl, 15mmol kphos, and 250 kphos tabs BID x2 doses, 40meq IV 01/16 Potassium 3.1, 40meq x2. Mag 1.8 s/p 2G IV mag today. Phos 1.8, 20mmol --Follow potassium, mag, and phos VT Intermittent runs of VT. QTc prolonged so avoiding QT prolonging medications --DNR/DNI --Treating electrolyte abnormalities Lactic acidosis RESOLVED significant lactic acidosis likely due to a combination of factors id metformin use,, decreased perfusion and or some hepatic dysfunction. The patient did have lactic acidosis during his last hospitalization that did not completely normalize. Lactic acid is definitely higher than prior values but this is in the setting of acute PE. Metformin is on hold. Patient's lactic acid did improve after 1 L fluid bolus. UTI RESOLVED Patient has abnormal urinalysis that could be consistent with UTI. Patient but being treated for UTI with linezolid as outpatient. Linezolid will be continued until the . Patient received 1 dose of Rocephin in the ER which will be discontinued. Urine cultures are pending. Urine culture grew anthony glabrata Patient's condition: Serious, high risk for deterioration Prognosis: Poor MEDICAL DECISION MAKING NARRATIVE -Patient seen and examined at bedside -Collaborated with patient's nurse and family at the bedside in detail and addressed all concerns -Labs, electrolytes, radiology, investigations and test results reviewed -ED/Consult/Nursing/Ancilliary notes on the chart reviewed and appreciated Patient has been admitted as observation status. Time Spent With Patient Time: 65 minutes Subjective Date/time seen: 01/16/25 5:05pm Interval history: Awake and talkative, participating with family both times I saw him today. Seemed more comfortable aPTT up from 44.4<85.6 decreased heparin drip from 750 to 500. Low dose heparin drip since drop in Hgb earlier this week Abdominal pain improved. 2 doses of Vicodin and 1 dose of morphine today Had several BM's today with suppository and enema and had several BM's today Appetite improved but not eating much Review of Systems Review of Systems: Review of systems unobtainable due to patient's dementia Exam Narrative: Weight 88.9 kg BMI 25.9 General - Awake and alert. No acute distress Eyes - PERRLA, EOM intact ENT - No thrush, No erythema Neck - No noticeable or palpable swelling Lymph Nodes - No lymphadenopathy Cardiovascular - RRR no m/r/g, no JVD Lungs: Clear to auscultation, decreased No wheezing, use of accessory muscles, no crackles Skin - Skin warm and dry, no rashes. Wounds to arms wrapped Abdomen - Normal bowel sounds, abdomen soft, mild suprapubic tender Extremities - Generalized edema, left >right leg cyanosis or clubbing Musculoskeletal - 4/5 strength, normal range of motion, no swollen or erythematous joints. Neurological ? Alert and oriented x 2, CN 2-12 grossly intact. Psych: Normal mood and affect Objective Data Vital Signs Vital Signs: Vital Signs - 24 hr 01/15/25 08:00 01/15/25 08:00 01/15/25 09:28 Temperature Pulse Rate 96 96 Respiratory Rate Blood Pressure Pulse Oximetry Oxygen Delivery Room Air 01/15/25 10:45 01/15/25 12:00 01/15/25 13:46 Temperature 96.9 F L Pulse Rate 96 85 Respiratory Rate 18 Blood Pressure 116/62 Pulse Oximetry 92 97 Oxygen Delivery Room Air 01/15/25 16:00 01/15/25 19:50 01/15/25 20:00 Temperature Pulse Rate 96 96 Respiratory Rate Blood Pressure Pulse Oximetry Oxygen Delivery Room Air 01/15/25 21:44 01/16/25 00:00 01/16/25 04:00 Temperature 96.9 F L Pulse Rate 97 98 103 H Respiratory Rate 16 Blood Pressure 135/69 Pulse Oximetry 96 Oxygen Delivery 01/16/25 06:13 Temperature 97.9 F Pulse Rate 102 H Respiratory Rate 16 Blood Pressure 142/71 H Pulse Oximetry 98 Oxygen Delivery Intake/Output Intake/Output: Intake & Output 01/13/25 01/14/25 01/15/25 01/16/25 23:59 23:59 23:59 23:59 Intake Total 2252.0 2195.8 2014 500 Output Total 2500 1950 1100 Balance -248.0 245.8 915 500 Meds/Results Medications: Active Medications Generic Name Dose Route Start Last Admin Trade Name Freq PRN Reason Stop Dose Admin Acetaminophen 650 mg 01/12/25 21:07 Acetaminophen 325 Mg Tablet PO Q6H PRN pain 1-3 or fever Hydrocodone Bitart/Acetaminophen 1 tab 01/13/25 09:00 01/16/25 03:48 Hydrocodone/Acetaminophen (*Crx) 5-325 Mg Tablet PO 1 tab Q6H NEHEMIAH Administration Aspirin 81 mg 01/13/25 09:00 01/15/25 09:29 Aspirin 81 Mg Enteric Tablet PO 81 mg DAILY NEHEMIAH Administration Bisacodyl 10 mg 01/16/25 09:00 Bisacodyl 10 Mg Suppository RECTAL 01/17/25 17:01 BID NEHEMIAH Calcium Carbonate 500 mg 01/13/25 09:00 01/15/25 10:40 Calcium/Vitamin D 500 Mg/5 Mcg (200 I.U.) Tablet PO Not Given DAILY [facility] Dextrose 12.5 gm 01/13/25 02:29 Dextrose 50% 25 Gm/50 Ml Syringe IV PUSH PRN PRN Hypoglycemia Protocol Dibucaine 1 applic 01/12/25 21:07 Dibucaine 1% Ointment 30 Gm Tube TOPICAL QID PRN Pain of groin ulcer Donepezil HCl 5 mg 01/12/25 21:10 01/15/25 23:01 Donepezil Hcl 5 Mg Tablet PO Not Given QHS [facility] Doxazosin Mesylate 2 mg 01/12/25 21:25 01/15/25 23:01 Doxazosin Mesylate 2 Mg Tablet PO Not Given QHS [facility] Dutasteride 0.5 mg 01/13/25 09:00 01/15/25 10:40 Dutasteride 0.5 Mg Capsule PO Not Given DAILY [facility] Fluticasone Propionate 1 spray 01/12/25 21:30 01/15/25 23:09 Fluticasone Propionate 0.05% Na Spr 16 Gm Btl (*Bkc) NASAL Not Given Q12HR [facility] Fluticasone Propionate 1 spray 01/15/25 21:00 01/15/25 23:00 Fluticasone Propionate 0.05% Na Spr 16 Gm Btl (*Bkc) XX 1 spray Q12H NEHEMIAH Administration Glucagon 1 mg 01/13/25 02:29 Glucagon For Inj 1 Mg Vial IM PRN PRN Hypoglycemia Protocol Glucose 15 gm 01/13/25 02:29 Glucose Oral Gel 15 Gm Of Glucse In 37.5 Gm Tube PO PRN PRN Hypoglycemia Protocol Heparin Sodium (Porcine) 3,500 units 01/12/25 17:33 Heparin Sodium 5,000 Units/Ml Vial IV PUSH PRN PRN aPTT 55 - 70 seconds Heparin Sodium/Dextrose 25,000 units in 250 mls @ 7.5 mls/hr 01/12/25 17:35 01/16/25 00:14 Heparin Sodium/D5w 100 Units/Ml IV CONT 750 units/hr .Q24H NEHEMIAH 7.5 mls/hr Administration Protocol 750 UNITS/HR Dextrose 1,000 mls @ 100 mls/hr 01/13/25 02:29 Dextrose 5% 1,000 Ml IVPB PRN PRN Hypoglycemia Protocol Cefepime HCl 2 gm/ Sodium 50 mls @ 100 mls/hr 01/15/25 22:00 01/15/25 23:28 Chloride IVPB Infused Q8H NEHEMIAH Infusion Metronidazole 500 mg in 100 mls @ 100 mls/hr 01/15/25 20:00 01/16/25 06:27 Flagyl 500 Mg/Iso Soln 100 Ml IVPB 100 mls/hr Q8H NEHEMIAH Administration Albumin Human 200 mls @ 60 mls/hr 01/16/25 01:00 01/16/25 06:19 Albutein IVPB Infused Q8H NEHEMIAH Infusion Linezolid 600 mg in 300 mls @ 300 mls/hr 01/16/25 00:00 01/16/25 00:13 Zyvox IVPB Not Given Q12H NEHEMIAH Potassium Chloride 40 meq/ 520 mls @ 130 mls/hr 01/16/25 09:00 Sodium Chloride IVPB 01/16/25 20:59 BID NEHEMIAH Insulin Aspart 2 - 5 units 01/13/25 08:00 01/15/25 18:13 Insulin Aspart (*Bkc) 100 Units/Ml SUB-Q Not Given TIDWM NEHEMIAH Protocol Levothyroxine Sodium 75 mcg 01/13/25 06:30 01/16/25 03:48 Levothyroxine Sodium 75 Mcg Tablet PO 75 mcg DAILY@0630 NEHEMIAH Administration Metoprolol Succinate 25 mg 01/13/25 09:00 01/15/25 09:28 Metoprolol Succinate Ext Rel 25 Mg Tabcr PO 25 mg DAILY NEHEMIAH Administration Miconazole Nitrate 1 applic 01/13/25 09:00 01/15/25 23:00 Miconazole Nitrate 2% Cream 30 Gm Tube TOPICAL 1 applic Q12HR NEHEMIAH Administration Morphine Sulfate 4 mg 01/15/25 18:57 Morphine Sulfate (*Crx) 4 Mg/Ml Inj IV PUSH Q2H PRN Pain Rated 9-10 Morphine Sulfate 2 mg 01/15/25 18:57 Morphine Sulfate (*Crx) 2 Mg/Ml Inj IV PUSH Q2H PRN Pain Rated 7-8 Oxycodone HCl 5 mg 01/12/25 21:07 01/15/25 12:41 Oxycodone Hcl (*Crx) 5 Mg Tab Ir PO 5 mg Q6H PRN Administration pain 4-10 Pantoprazole Sodium 40 mg 01/14/25 10:30 01/15/25 22:58 Pantoprazole Sodium Iv 40 Mg Vial IV PUSH 40 mg Q12HR NEHEMIAH Administration Polyethylene Glycol 17 gm 01/16/25 09:00 Polyethylene Glycol 3350 17 Gm Powd.Pack PO 01/18/25 08:59 TID NEHEMIAH Senna/Docusate Sodium 2 tab 01/13/25 09:00 01/15/25 23:01 Senna/Docusate Sodium Tablet PO Not Given Q12HR [facility] Radiology Results: ITS Impressions Chest CTA 01/12/25 16:59 IMPRESSION: Multiple pulmonary emboli, large clot burden, and evidence of right heart strain. Trace right and small left pleural effusions. 4 mm right upper lobe pulmonary nodule, consider an optional follow-up low-dose noncontrast CT of the chest in one year if the patient is at high risk. Gallbladder hydrops, likely secondary to fasting the absence of right upper quadrant pain or biliary labs abnormalities. Innumerable pancreatic cysts, which may represent the sequela of chronic pancreatitis, or less likely the uncommon diagnosis of isolated polycystic pancreatic disease. Correlate for pancreatic enzyme abnormalities and any symptoms of vague abdominal pain. Consider nonemergent MRI of the pancreas if there are abdominal symptoms. Results reported telephonically to Dr. Haque by Dr. Barry at 5:19 PM on 01/12. Abdomen/Pelvis CT 01/15/25 19:18 IMPRESSION: 1. Multiple abscesses seen anterior to the urinary bladder. 2. Thickened wall of the gallbladder suggestive of cystitis. 3. Free fluid seen in the pelvis and paracolic gutters. 4. Left hydronephrotic changes with no definite stones. 5. Constipation. 6. Bilateral pleural effusion with adjacent atelectasis. 7. Large left renal cyst. 8. Polycystic pancreas. 9. Bilateral fat containing inguinal hernias. Labs Labs: Laboratory Results - last 24 hr 01/14/25 01/15/25 01/15/25 20:59 07:26 11:32 WBC RBC Hgb Hct MCV MCH MCHC RDW Plt Count MPV Immature Gran % (Auto) Neut % (Auto) Lymph % (Auto) [place] % (Auto) Eos % (Auto) Baso % (Auto) Lymph # (Auto) [place] # (Auto) Eos # (Auto) Baso # (Auto) Abs Immat Gran (auto) Absolute Neuts (auto) Absolute Nucleated RBC Total Counted Neutrophils % (Manual) Band Neutrophils % Lymphocytes % (Manual) Monocytes % (Manual) Eosinophils % (Manual) Nucleated RBC % Abs Neuts (Manual) Abs Lymphs (Manual) Abs Monocytes (Manual) Absolute Eos (Manual) Platelet Estimate % Immature Plt Fraction Anisocytosis Macrocytosis Schistocytes ESR Haptoglobin Cancelled APTT Sodium Potassium Chloride Carbon Dioxide Anion Gap BUN Creatinine Estim Creat Clear Calc Estimated GFR Glucose POC Capillary Glucose 134 H 118 H Calcium Magnesium C-Reactive Protein Urine Color Urine Appearance Urine pH Ur Specific [place] Urine Protein Urine Glucose (UA) Urine Ketones Ur Blood (Man) Urine Nitrate Urine Bilirubin Urine Urobilinogen Leukocyte Esterase Rfl Urine RBC Urine WBC Ur Squamous Epith Cells Urine Bacteria 01/15/25 01/15/25 01/15/25 15:05 16:43 20:29 WBC 5.9 RBC 2.86 L Hgb 8.3 L Hct 24.9 L MCV 87.1 MCH 29.0 MCHC 33.3 RDW 16.5 H Plt Count 84 L MPV 9.8 Immature Gran % (Auto) 0.9 H Neut % (Auto) 77.7 H Lymph % (Auto) 14.7 L [place] % (Auto) 5.8 Eos % (Auto) 0.7 Baso % (Auto) 0.2 Lymph # (Auto) 0.86 L [place] # (Auto) 0.3 Eos # (Auto) 0.0 Baso # (Auto) 0.0 Abs Immat Gran (auto) 0.05 H Absolute Neuts (auto) 4.6 Absolute Nucleated RBC 0.000 Total Counted Neutrophils % (Manual) Band Neutrophils % Not Reportable Lymphocytes % (Manual) Monocytes % (Manual) Eosinophils % (Manual) Nucleated RBC % 0.0 Abs Neuts (Manual) Abs Lymphs (Manual) Abs Monocytes (Manual) Absolute Eos (Manual) Platelet Estimate Decreased % Immature Plt Fraction 2.5 Anisocytosis 1+ Macrocytosis Schistocytes None seen ESR 16 Haptoglobin APTT Sodium 141 Potassium 3.1 L Chloride 106 Carbon Dioxide 24 Anion Gap 11 BUN 10 Creatinine 0.69 L Estim Creat Clear Calc 79 Estimated GFR > 60 Glucose 113 H POC Capillary Glucose 112 H 101 Calcium 8.8 Magnesium C-Reactive Protein 7.7 H Urine Color Urine Appearance Urine pH Ur Specific [place] Urine Protein Urine Glucose (UA) Urine Ketones Ur Blood (Man) Urine Nitrate Urine Bilirubin Urine Urobilinogen Leukocyte Esterase Rfl Urine RBC Urine WBC Ur Squamous Epith Cells Urine Bacteria 01/15/25 01/16/25 01/16/25 21:01 04:59 05:44 WBC 5.8 6.4 RBC 2.84 L 2.82 L Hgb 8.2 L 8.2 L Hct 24.8 L 25.0 L MCV 87.3 88.7 MCH 28.9 29.1 MCHC 33.1 32.8 RDW 16.5 H 16.6 H Plt Count 81 L 85 L MPV 10.1 9.5 Immature Gran % (Auto) Not Reportable Not Reportable Neut % (Auto) Not Reportable Not Reportable Lymph % (Auto) Not Reportable Not Reportable [place] % (Auto) Not Reportable Not Reportable Eos % (Auto) Not Reportable Not Reportable Baso % (Auto) Not Reportable Not Reportable Lymph # (Auto) Not Reportable Not Reportable [place] # (Auto) Not Reportable Not Reportable Eos # (Auto) Not Reportable Not Reportable Baso # (Auto) Not Reportable Not Reportable Abs Immat Gran (auto) Not Reportable Not Reportable Absolute Neuts (auto) Not Reportable Not Reportable Absolute Nucleated RBC Not Reportable Not Reportable Total Counted 100 100 Neutrophils % (Manual) 83 H 73 Band Neutrophils % 1 13 H Lymphocytes % (Manual) 9.0 L 11 L Monocytes % (Manual) 6 2 L Eosinophils % (Manual) 1 1 Nucleated RBC % Not Reportable Not Reportable Abs Neuts (Manual) 4.87 5.50 Abs Lymphs (Manual) 0.52 L 0.70 L Abs Monocytes (Manual) 0.34 0.12 Absolute Eos (Manual) 0.05 0.06 Platelet Estimate Decreased Decreased % Immature Plt Fraction 2.7 2.3 Anisocytosis 3+ Macrocytosis 2+ Schistocytes None seen None seen ESR Haptoglobin APTT 44.4 H 85.6 H Sodium 140 Potassium 3.1 L Chloride 106 Carbon Dioxide 21 L Anion Gap 13 H BUN 10 Creatinine 0.66 L Estim Creat Clear Calc 82 Estimated GFR > 60 Glucose 120 H POC Capillary Glucose Calcium 9.1 Magnesium 1.8 C-Reactive Protein Urine Color Yellow Urine Appearance Cloudy H Urine pH 7.5 Ur Specific [place] 1.027 Urine Protein 2+ H Urine Glucose (UA) 3+ H Urine Ketones Trace H Ur Blood (Man) 1+ H Urine Nitrate Negative Urine Bilirubin Negative Urine Urobilinogen 1.0 Leukocyte Esterase Rfl 2+ H Urine RBC None seen Urine WBC 21-50 H Ur Squamous Epith Cells None seen Urine Bacteria None seen Quality VTE Prophylaxis VTE prophylaxis: mechanical ordered Hospitalist MIPS Advance Care Plan I have confirmed that the patient's Advanced Care Plan is present, code status is documented, or surrogate decision maker is listed in patient medical record.: Yes Medication Reconciliation I have utilized all available resources to obtain, update and review the patients current medications (includes all prescriptions, OTC, herbals, cannabis, and nutritional supplements).: Yes
[2025-01-16] MEDS: CEFEPIME 2 GM in SODIUM CHLORIDE 0.9% IV 50 ML 100 ML IVPB ×3 (07:38→23:49)
[2025-01-16] MEDS: ASPIRIN 81 MG ENTERIC TABLET PO (09:57)
[2025-01-16] MEDS: CALCIUM/VITAMIN D 500 MG/5 MCG (200 I.U.) TABLET PO (09:57)
[2025-01-16] MEDS: SENNA/DOCUSATE SODIUM TABLET 2 TAB PO ×2 (09:57→20:40)
[2025-01-16] MEDS: PANTOPRAZOLE SODIUM IV 40 MG VIAL IV PUSH ×2 (09:57→22:03)
[2025-01-16] MEDS: DUTASTERIDE 0.5 MG CAPSULE PO (09:57)
[2025-01-16] MEDS: BISACODYL 10 MG SUPPOSITORY RECTAL (09:59)
[2025-01-16] MEDS: FLUTICASONE PROPIONATE 0.05% NA SPR 16 GM BTL (*BKC) 1 SPRAY XX ×2 (10:00→22:04)
[2025-01-16] MEDS: FLUTICASONE PROPIONATE 0.05% NA SPR 16 GM BTL (*BKC) 1 SPRAY NASAL ×3 (10:00→22:04)
[2025-01-16] MEDS: MICONAZOLE NITRATE 2% CREAM 30 GM TUBE 1 APPLIC TOPICAL ×2 (10:00→22:04)
[2025-01-16] MEDS: METOPROLOL SUCCINATE EXT REL 25 MG TABCR PO (10:02)
[2025-01-16] MEDS: POTASSIUM CHLORIDE INJ 40 MEQ in SODIUM CHLORIDE 0.9% IV 500 ML 130 MEQ IVPB ×2 (12:41→16:57)
--- NOTE | 2025-01-16 15:53 | PC.NURSE ---
RN spoke with patient's family about mineral oil enema. Family stated patient has had this enema in the past and it did not work due to patient being unable to follow commands during enema. They feel the PO miralax and suppository is helping as patient has passed small bowel movements now.
[2025-01-16] MEDS: MORPHINE SULFATE (*CRX) 2 MG/ML INJ IV PUSH (17:34)
[2025-01-16] MEDS: SODIUM PHOSPHATE 20 MM in DEXTROSE 5% IN WATER 250 ML 50 MM IVPB (20:39)
[2025-01-16] MEDS: DONEPEZIL HCL 5 MG TABLET PO (20:40)
[2025-01-16 20:55] LABS: Hematocrit 22.4 % (42.0-52.0); Hemoglobin 7.3 g/dL (14.0-18.0); Immature Granulocyte Percent A 0.8 % (0-0.5); Immature Platelet Fraction Pct 2.8 % (0.9-11.2); Lymphocytes Absolute Auto 0.72 K/mm3 (0.9-3.2); Mean Corpuscular HGB Conc 32.6 g/dl (32-36); Mean Corpuscular Hemoglobin 28.6 pg (26-34); Mean Corpuscular Volume 87.8 fl (80-100); Nucleated Red Blood Cells Absolute Auto 0.000 K/mm3 (0.0-0.012); Nucleated Red Blood Cells Perc 0.0 % (0.0-0.2); Platelet Count Result 79 k/mm3 (150-375); Red Blood Count 2.55 M/mm3 (4.6-6.20); White Blood Count 6.1 K/mm3 (4.5-10.0)
[2025-01-16 21:05] LABS: Partial Thromboplastin Time 87.5 Seconds (22.3-36.8)
[2025-01-16 21:16] LABS: Hypochromasia 1+; Schistocytes None Seen
[2025-01-16] MEDS: DOXAZOSIN MESYLATE 2 MG TABLET PO (22:00)
[2025-01-17] VITALS (7 sets, daily range): BP systolic 94–124; BP diastolic 47–70; PULSE 98–111; RESP 18–20; TEMP 35.8–36.6; O2SAT 96–99
[2025-01-17] MEDS: LINEZOLID 600 MG/300 ML 600 MG/300 ML SOLN 200 MG IVPB (00:59)
[2025-01-17] MEDS: metroNIDAZOLE 500 MG/ISO 100ML 500 MG/100 ML BAG 100 MG IVPB ×3 (03:15→23:04)
[2025-01-17] MEDS: HYDROcodone/acetaminophen (*CRX) 5-325 MG TABLET 1 TAB PO ×4 (03:15→21:10)
[2025-01-17] MEDS: LEVOTHYROXINE SODIUM 75 MCG TABLET PO (06:34)
[2025-01-17] MEDS: CEFEPIME 2 GM in SODIUM CHLORIDE 0.9% IV 50 ML 100 ML IVPB ×3 (06:34→21:07)
--- NOTE | 2025-01-17 07:48 | PM.IMPN ---
Progress Note: A&P Assessment and Plan (1) Pulmonary embolism: Qualifiers: Acute cor pulmonale presence: with acute cor pulmonale Chronicity: acute Pulmonary embolism type: unspecified Qualified Code(s): I26.09 - Other pulmonary embolism with acute cor pulmonale Code(s): I26.99 - Other pulmonary embolism without acute cor pulmonale Status: Acute (2) Acute on chronic anemia: Code(s): D64.9 - Anemia, unspecified Status: Acute (3) Lactic acidosis: Code(s): E87.20 - Acidosis, unspecified Status: Acute (4) Abnormal urinalysis: Code(s): R82.90 - Unspecified abnormal findings in urine Status: Acute (5) Goals of care, counseling/discussion: Code(s): Z71.89 - Other specified counseling Status: Acute (6) Acute anemia: Code(s): D64.9 - Anemia, unspecified Status: Acute Plan Acute PE ACTIVE, monitoring Right heart strain on CT Recent diagnosis of DVT at [facility], was on Eliquis DNR/DNI. Spoke with his daughter and his at the bedside and the patient -- heparin drip on hold for acute drop in Hgb. Spoke with family and held heparin drip and gave 2 units of blood. No plan for invasive interventions. Resumed low dose heparin drip since Hgb stable. Titrating for low PTT goal, 45-80. No bolus. Adjusting rate only q12 to minimize sticks since partially comfort goals. Started at 750units/hr, 44<85. Reduced to 500units/hr PTT was supratherapeutic and had acute blood loss. --Not wanting aggressive interventions. Declined option for transfer to higher acuity, but that is appropriate because goals of care primarily palliative with limited interventions. 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 Possible acute GI bleeding but not planning intervention per discussion with family --Follow blood count and transfuse as able --Restarted low dose heparin drip and checking CBC, PTT q12. Blood count has been stable for several days --H&H stable at 8.2/25 Tachycardia HR 97-110 Blood pressure 121/60 --Improving --Hold albumin overnight, resume if more tachycardic or hypotensive Abdominal Abscess Abdominal pain ACTIVE, acute Recent bladder rupture, treated at [facility] CT abd/pelvis at OSH 01/08 showed evolving sequelae of extraperitoneal bladder rupture within an capsulated mixed gas-fluid collection in the space Retzius and fluid component of which is decreased in size compared to prior examination in continuity with the anterior urinary bladder wall defect fluid directing subjacent to the rectus abdominus musculature no new organized or drainable fluid collection to partially imaged subsegmental bilateral pulmonary emboli as previously seen on the prior CT from 12/27 had been treated with Zosyn, Flagyl and Vanc, then cefepime and Vanc. Was seen by ID. DC'd cefepime and vanc added linezolid on 01/03 Spoke with family and not pursuing surgical options given comorbidities --Started empiric Cefepime, Flagyl, zyvox. Monitor thrombocytopenia, stable 1. Multiple abscesses seen anterior to the urinary bladder. 2. Thickened wall of the gallbladder suggestive of cystitis. 3. Free fluid seen in the pelvis and paracolic gutters. 4. Left hydronephrotic changes with no definite stones. 5. Constipation. 6. Bilateral pleural effusion with adjacent atelectasis. 7. Large left renal cyst. 8. Polycystic pancreas. 9. Bilateral fat containing inguinal hernias. Constipation Personally reviewed CT and constipation visible --Continue miralax daily, bisacodyl suppository hs if no BM in 48 hours. Goals of Care Counseling, Discussion ACTIVE DNR/DNI with labs and medications. Spoke with patient, , and daughter at bedside and not planning to transfer to outside hospital. Blood count dropped from 7.9 to 5.5>5.4 01/14 and transfused 2 units. Discussed option for GI consult for scope and declined interventions. Also no plan for invasive lines, reviewed option for central line and vasopressors, but would likely be minimal benefit since underlying cause of hypotension would be blood clot or bleeding which have limited options for intervention. Discussed that drop in blood count is complicated since holding drip and blood clots are causing right strain, could lead to hemodynamic changes and medical instability. Planning transfusion. Family aware of potential for deterioration. Not interested in hospice at this point. Acute Pain IMPROVED, monitoring Tylenol, Vicodin,add Morphine 2-4mg q4 prn since not taking PO well MRSA Bacteremia Recently treated for MRSA bacteremia, completed 01/13. TTE 01/03 no vegetations. Also treated for sacral pyoderma gangrenosum. Was seen by dermatology and recently completed a steroid taper --Blood cultures x2 --Follow WBC, ESR, CRP, temps Confusion Hx dementia. Multiple medical problems and having pain requiring opiates. Also recent infection --Workup for infection, anemia Hypokalemia Hypophosphatemia Hypomagnesemia ACTIVE 01/15 Potassium 3.1, Phos 1.9. 20meq Kcl, 15mmol kphos, and 250 kphos tabs BID x2 doses, 40meq IV 01/16 Potassium 3.1, 40meq x2. Mag 1.8 s/p 2G IV mag today. Phos 1.8, 20mmol --Follow potassium, mag, and phos VT Intermittent runs of VT. QTc prolonged so avoiding QT prolonging medications --DNR/DNI --Treating electrolyte abnormalities Lactic acidosis RESOLVED significant lactic acidosis likely due to a combination of factors id metformin use,, decreased perfusion and or some hepatic dysfunction. The patient did have lactic acidosis during his last hospitalization that did not completely normalize. Lactic acid is definitely higher than prior values but this is in the setting of acute PE. Metformin is on hold. Patient's lactic acid did improve after 1 L fluid bolus. UTI RESOLVED Patient has abnormal urinalysis that could be consistent with UTI. Patient but being treated for UTI with linezolid as outpatient. Linezolid will be continued until the . Patient received 1 dose of Rocephin in the ER which will be discontinued. Urine cultures are pending. Urine culture grew anthony glabrata Patient's condition: Serious, high risk for deterioration Prognosis: Poor MEDICAL DECISION MAKING NARRATIVE -Patient seen and examined at bedside -Collaborated with patient's nurse and family at the bedside in detail and addressed all concerns -Labs, electrolytes, radiology, investigations and test results reviewed -ED/Consult/Nursing/Ancilliary notes on the chart reviewed and appreciated Patient has been admitted as observation status. Time Spent With Patient Time: 45 minutes Subjective Date/time seen: 01/17/25 14:35 Interval history: Hgb downtrending. Held heparin drip this morning since blood count trending down but repeat labs were stable. Resumed at 500units/hr Abdominal pain about the same. Awake but eating minimally Restart albumin for soft blood pressures Review of Systems Review of Systems: Review of systems unobtainable due to patient's dementia Exam Narrative: Weight 88.9 kg BMI 25.9 General - Awake and alert. No acute distress Eyes - PERRLA, EOM intact ENT - No thrush, No erythema Neck - No noticeable or palpable swelling Lymph Nodes - No lymphadenopathy Cardiovascular - RRR no m/r/g, no JVD Lungs: Clear to auscultation, decreased No wheezing, use of accessory muscles, no crackles Skin - Skin warm and dry, no rashes. Wounds to arms wrapped Abdomen - Normal bowel sounds, abdomen soft, mild suprapubic tender Extremities - Generalized edema, left >right leg cyanosis or clubbing Musculoskeletal - 4/5 strength, normal range of motion, no swollen or erythematous joints. Neurological ? Alert and oriented x 2, CN 2-12 grossly intact. Psych: Normal mood and affect Objective Data Vital Signs Vital Signs: Vital Signs - 24 hr 01/16/25 08:00 01/16/25 10:00 01/16/25 10:02 Temperature Pulse Rate 110 H 101 H Respiratory Rate Blood Pressure Pulse Oximetry Oxygen Delivery Room Air 01/16/25 12:00 01/16/25 14:00 01/16/25 16:00 Temperature 97.1 F L Pulse Rate 110 H 97 103 H Respiratory Rate 20 Blood Pressure 121/60 Pulse Oximetry 97 Oxygen Delivery 01/16/25 20:00 01/16/25 21:47 01/17/25 00:00 Temperature 97.3 F L Pulse Rate 108 H 95 102 H Respiratory Rate 18 Blood Pressure 110/59 L Pulse Oximetry 96 Oxygen Delivery 01/17/25 04:20 01/17/25 06:00 Temperature 97.5 F L Pulse Rate 106 H 102 H Respiratory Rate 18 Blood Pressure 124/70 Pulse Oximetry 97 Oxygen Delivery Intake/Output Intake/Output: Intake & Output 01/14/25 01/15/25 01/16/25 01/17/25 23:59 23:59 23:59 23:59 Intake Total 2195.8 2014 2315 225 Output Total 1950 1100 350 400 Balance 245.8 915 1965 -175 Meds/Results Medications: Active Medications Generic Name Dose Route Start Last Admin Trade Name Freq PRN Reason Stop Dose Admin Acetaminophen 650 mg 01/12/25 21:07 Acetaminophen 325 Mg Tablet PO Q6H PRN pain 1-3 or fever Hydrocodone Bitart/Acetaminophen 1 tab 01/13/25 09:00 01/17/25 03:15 Hydrocodone/Acetaminophen (*Crx) 5-325 Mg Tablet PO 1 tab Q6H NEHEMIAH Administration Aspirin 81 mg 01/13/25 09:00 01/16/25 09:57 Aspirin 81 Mg Enteric Tablet PO 81 mg DAILY NEHEMIAH Administration Bisacodyl 10 mg 01/17/25 21:00 Bisacodyl 10 Mg Suppository [facility] Calcium Carbonate 500 mg 01/13/25 09:00 01/16/25 09:57 Calcium/Vitamin D 500 Mg/5 Mcg (200 I.U.) Tablet PO 500 mg DAILY NEHEMIAH Administration Dextrose 12.5 gm 01/13/25 02:29 Dextrose 50% 25 Gm/50 Ml Syringe IV PUSH PRN PRN Hypoglycemia Protocol Dibucaine 1 applic 01/12/25 21:07 Dibucaine 1% Ointment 30 Gm Tube TOPICAL QID PRN Pain of groin ulcer Donepezil HCl 5 mg 01/12/25 21:10 01/16/25 20:40 Donepezil Hcl 5 Mg Tablet PO 5 mg QHS NEHEMIAH Administration Doxazosin Mesylate 2 mg 01/12/25 21:25 01/16/25 22:00 Doxazosin Mesylate 2 Mg Tablet PO 2 mg QHS NEHEMIAH Administration Dutasteride 0.5 mg 01/13/25 09:00 01/16/25 09:57 Dutasteride 0.5 Mg Capsule PO 0.5 mg DAILY NEHEMIAH Administration Fluticasone Propionate 1 spray 01/12/25 21:30 01/16/25 22:04 Fluticasone Propionate 0.05% Na Spr 16 Gm Btl (*Bkc) NASAL 1 spray Q12HR NEHEMIAH Administration Fluticasone Propionate 1 spray 01/15/25 21:00 01/16/25 22:04 Fluticasone Propionate 0.05% Na Spr 16 Gm Btl (*Bkc) XX 1 spray Q12H NEHEMIAH Administration Glucagon 1 mg 01/13/25 02:29 Glucagon For Inj 1 Mg Vial IM PRN PRN Hypoglycemia Protocol Glucose 15 gm 01/13/25 02:29 Glucose Oral Gel 15 Gm Of Glucse In 37.5 Gm Tube PO PRN PRN Hypoglycemia Protocol Heparin Sodium (Porcine) 3,500 units 01/12/25 17:33 Heparin Sodium 5,000 Units/Ml Vial IV PUSH PRN PRN aPTT 55 - 70 seconds Heparin Sodium/Dextrose 25,000 units in 250 mls @ 5 mls/hr 01/12/25 17:35 01/16/25 17:49 Heparin Sodium/D5w 100 Units/Ml IV CONT Not Given .Q24H NEHEIMAH Protocol 500 UNITS/HR Dextrose 1,000 mls @ 100 mls/hr 01/13/25 02:29 Dextrose 5% 1,000 Ml IVPB PRN PRN Hypoglycemia Protocol Cefepime HCl 2 gm/ Sodium 50 mls @ 100 mls/hr 01/15/25 22:00 01/17/25 06:34 Chloride IVPB 100 mls/hr Q8H NEHEMIAH Administration Metronidazole 500 mg in 100 mls @ 100 mls/hr 01/15/25 20:00 01/17/25 03:15 Flagyl 500 Mg/Iso Soln 100 Ml IVPB 100 mls/hr Q8H NEHEMIAH Administration Albumin Human 200 mls @ 60 mls/hr 01/16/25 01:00 01/16/25 16:49 Albutein IVPB 60 mls/hr Q8H NEHEMIAH Administration Linezolid 600 mg in 300 mls @ 300 mls/hr 01/16/25 00:00 01/17/25 00:59 Zyvox IVPB 200 mls/hr Q12H NEHEMIAH Administration Insulin Aspart 2 - 5 units 01/13/25 08:00 01/17/25 07:38 Insulin Aspart (*Bkc) 100 Units/Ml SUB-Q Not Given [facility] Protocol Levothyroxine Sodium 75 mcg 01/13/25 06:30 01/17/25 06:34 Levothyroxine Sodium 75 Mcg Tablet PO 75 mcg DAILY@0630 NEHEMIAH Administration Metoprolol Succinate 25 mg 01/13/25 09:00 01/16/25 10:02 Metoprolol Succinate Ext Rel 25 Mg Tabcr PO 25 mg DAILY NEHEMIAH Administration Miconazole Nitrate 1 applic 01/13/25 09:00 01/16/25 22:04 Miconazole Nitrate 2% Cream 30 Gm Tube TOPICAL 1 applic Q12HR NEHEMIAH Administration Morphine Sulfate 4 mg 01/15/25 18:57 Morphine Sulfate (*Crx) 4 Mg/Ml Inj IV PUSH Q2H PRN Pain Rated 9-10 Morphine Sulfate 2 mg 01/15/25 18:57 01/16/25 17:34 Morphine Sulfate (*Crx) 2 Mg/Ml Inj IV PUSH 2 mg Q2H PRN Administration Pain Rated 7-8 Oxycodone HCl 5 mg 01/12/25 21:07 01/15/25 12:41 Oxycodone Hcl (*Crx) 5 Mg Tab Ir PO 5 mg Q6H PRN Administration pain 4-10 Pantoprazole Sodium 40 mg 01/14/25 10:30 01/16/25 22:03 Pantoprazole Sodium Iv 40 Mg Vial IV PUSH 40 mg Q12HR NEHEMIAH Administration Polyethylene Glycol 17 gm 01/17/25 09:00 Polyethylene Glycol 3350 17 Gm Powd.Pack PO 01/19/25 08:59 DAILY NEHEMIAH Senna/Docusate Sodium 2 tab 01/13/25 09:00 01/16/25 20:40 Senna/Docusate Sodium Tablet PO 2 tab Q12HR NEHEMIAH Administration Radiology Results: ITS Impressions Chest CTA 01/12/25 16:59 IMPRESSION: Multiple pulmonary emboli, large clot burden, and evidence of right heart strain. Trace right and small left pleural effusions. 4 mm right upper lobe pulmonary nodule, consider an optional follow-up low-dose noncontrast CT of the chest in one year if the patient is at high risk. Gallbladder hydrops, likely secondary to fasting the absence of right upper quadrant pain or biliary labs abnormalities. Innumerable pancreatic cysts, which may represent the sequela of chronic pancreatitis, or less likely the uncommon diagnosis of isolated polycystic pancreatic disease. Correlate for pancreatic enzyme abnormalities and any symptoms of vague abdominal pain. Consider nonemergent MRI of the pancreas if there are abdominal symptoms. Results reported telephonically to Dr. Haque by Dr. Barry at 5:19 PM on 01/12/2025. Abdomen/Pelvis CT 01/15/25 19:18 IMPRESSION: 1. Multiple abscesses seen anterior to the urinary bladder. 2. Thickened wall of the gallbladder suggestive of cystitis. 3. Free fluid seen in the pelvis and paracolic gutters. 4. Left hydronephrotic changes with no definite stones. 5. Constipation. 6. Bilateral pleural effusion with adjacent atelectasis. 7. Large left renal cyst. 8. Polycystic pancreas. 9. Bilateral fat containing inguinal hernias. Labs Labs: Laboratory Results - last 24 hr 01/16/25 01/16/25 01/16/25 05:44 11:52 16:11 WBC RBC Hgb Hct MCV MCH MCHC RDW Plt Count MPV Immature Gran % (Auto) Neut % (Auto) Lymph % (Auto) [place] % (Auto) Eos % (Auto) Baso % (Auto) Lymph # (Auto) [place] # (Auto) Eos # (Auto) Baso # (Auto) Abs Immat Gran (auto) Absolute Neuts (auto) Absolute Nucleated RBC Band Neutrophils % Nucleated RBC % Atypical Lymphocytes Platelet Estimate % Immature Plt Fraction Hypochromasia Schistocytes APTT POC Capillary Glucose 151 H 200 H Phosphorus 1.8 L 01/16/25 01/16/25 01/17/25 20:48 22:04 07:24 WBC 6.1 RBC 2.55 L Hgb 7.3 L Hct 22.4 L MCV 87.8 MCH 28.6 MCHC 32.6 RDW 16.6 H Plt Count 79 L MPV 9.6 Immature Gran % (Auto) 0.8 H Neut % (Auto) 82.0 H Lymph % (Auto) 11.8 L [place] % (Auto) 4.4 Eos % (Auto) 0.7 Baso % (Auto) 0.3 Lymph # (Auto) 0.72 L [place] # (Auto) 0.3 Eos # (Auto) 0.0 Baso # (Auto) 0.0 Abs Immat Gran (auto) 0.05 H Absolute Neuts (auto) 5.0 Absolute Nucleated RBC 0.000 Band Neutrophils % Not Reportable Nucleated RBC % 0.0 Atypical Lymphocytes Present Platelet Estimate Decreased % Immature Plt Fraction 2.8 Hypochromasia 1+ Schistocytes None seen APTT 87.5 H POC Capillary Glucose 157 H 156 H Phosphorus Quality VTE Prophylaxis VTE prophylaxis: mechanical ordered and pharmacologic ordered
[2025-01-17] MEDS: METOPROLOL SUCCINATE EXT REL 25 MG TABCR PO (08:01)
[2025-01-17] MEDS: ASPIRIN 81 MG ENTERIC TABLET PO (08:02)
[2025-01-17] MEDS: PANTOPRAZOLE SODIUM IV 40 MG VIAL IV PUSH (08:02)
[2025-01-17 09:03] LABS: Hematocrit 24.5 % (42.0-52.0); Hemoglobin 8.2 g/dL (14.0-18.0); Immature Granulocyte Percent A 1.0 % (0-0.5); Immature Platelet Fraction Pct 2.9 % (0.9-11.2); Lymphocytes Absolute Auto 0.75 K/mm3 (0.9-3.2); Mean Corpuscular HGB Conc 33.5 g/dl (32-36); Mean Corpuscular Hemoglobin 29.6 pg (26-34); Mean Corpuscular Volume 88.4 fl (80-100); Nucleated Red Blood Cells Absolute Auto 0.000 K/mm3 (0.0-0.012); Nucleated Red Blood Cells Perc 0.0 % (0.0-0.2); Platelet Count Result 83 k/mm3 (150-375); Red Blood Count 2.77 M/mm3 (4.6-6.20); White Blood Count 6.3 K/mm3 (4.5-10.0)
[2025-01-17 09:12] LABS: Partial Thromboplastin Time 53.4 Seconds (22.3-36.8)
[2025-01-17] MEDS: FLUTICASONE PROPIONATE 0.05% NA SPR 16 GM BTL (*BKC) 1 SPRAY XX ×2 (09:23→21:13)
[2025-01-17] MEDS: MICONAZOLE NITRATE 2% CREAM 30 GM TUBE 1 APPLIC TOPICAL ×2 (09:24→21:15)
[2025-01-17 09:27] LABS: Anisocytosis 1+; Basophilic Stippling 1+; Hypochromasia 1+; Target Cells 1+
[2025-01-17 09:28] LABS: Schistocytes None Seen
[2025-01-17] MEDS: DOXYCYCLINE HYCLATE 100 MG TABLET PO ×2 (09:28→21:10)
[2025-01-17] MEDS: HEPARIN SOD/D5W 100 UNITS/ML 25,000 UNITS/250 ML BAG 7.5 UNITS IV CONT (12:41)
[2025-01-17 13:07] LABS: Alanine Aminotransferase 17 U/L (6-50); Albumin Level 4.2 g/dL (3.5-5.1); Alkaline Phosphatase 35 U/L (38-126); Anion Gap 12 mmol/L (4-12); Aspartate Amino Transferase 25 U/L (17-59); Bilirubin,Total 1.5 mg/dL (0.2-1.3); Blood Urea Nitrogen 12 mg/dL (9-20); Calcium 8.7 mg/dL (8.4-10.2); Carbon Dioxide 20 mmol/L (22-30); Chloride 107 mmol/L (98-107); Estimated CRCL calculation 78 ml/min; Estimated Glomerular Filt Rate > 60; Glucose 204 mg/dL (65-110); Potassium 3.2 mmol/L (3.4-5.0); Sodium 139 mmol/L (137-145); Total Protein 6.0 g/dL (6.3-8.2)
[2025-01-17 13:58] LABS: Hematocrit 26.1 % (42.0-52.0); Hemoglobin 8.5 g/dL (14.0-18.0); Immature Platelet Fraction Pct 3.0 % (0.9-11.2); Mean Corpuscular HGB Conc 32.6 g/dl (32-36); Mean Corpuscular Hemoglobin 28.8 pg (26-34); Mean Corpuscular Volume 88.5 fl (80-100); Platelet Count Result 92 k/mm3 (150-375); Red Blood Count 2.95 M/mm3 (4.6-6.20); White Blood Count 8.1 K/mm3 (4.5-10.0)
[2025-01-17 14:17] LABS: Partial Thromboplastin Time 78.4 Seconds (22.3-36.8)
[2025-01-17] MEDS: POTASSIUM CHLORIDE INJ 40 MEQ in SODIUM CHLORIDE 0.9% IV 500 ML 130 MEQ IVPB (14:19)
[2025-01-17 14:29] LABS: Iron 39 ug/dL (49-181)
[2025-01-17 14:38] LABS: Percent Iron Saturation 36 % (20-50)
[2025-01-17 15:10] LABS: Ferritin 495.00 ng/mL (11.1-264)
[2025-01-17] MEDS: MORPHINE SULFATE (*CRX) 2 MG/ML INJ IV PUSH ×2 (15:24→17:51)
[2025-01-17] MEDS: METOCLOPRAMIDE HCL INJ 10 MG/2 ML VIAL 5 MG IV PUSH (16:27)
[2025-01-17 21:08] LABS: Hematocrit 27.3 % (42.0-52.0); Hemoglobin 8.8 g/dL (14.0-18.0); Immature Granulocyte Percent A 0.9 % (0-0.5); Immature Platelet Fraction Pct 3.2 % (0.9-11.2); Lymphocytes Absolute Auto 0.97 K/mm3 (0.9-3.2); Mean Corpuscular HGB Conc 32.2 g/dl (32-36); Mean Corpuscular Hemoglobin 28.7 pg (26-34); Mean Corpuscular Volume 88.9 fl (80-100); Nucleated Red Blood Cells Absolute Auto 0.000 K/mm3 (0.0-0.012); Nucleated Red Blood Cells Perc 0.0 % (0.0-0.2); Red Blood Count 3.07 M/mm3 (4.6-6.20); White Blood Count 6.7 K/mm3 (4.5-10.0)
[2025-01-17] MEDS: PANTOPRAZOLE 40 MG TABLET PO (21:11)
[2025-01-17] MEDS: SENNA/DOCUSATE SODIUM TABLET 2 TAB PO (21:11)
[2025-01-17] MEDS: DOXAZOSIN MESYLATE 2 MG TABLET PO (21:11)
[2025-01-17] MEDS: DONEPEZIL HCL 5 MG TABLET PO (21:11)
[2025-01-17] MEDS: BISACODYL 10 MG SUPPOSITORY RECTAL (21:12)
[2025-01-17] MEDS: FLUTICASONE PROPIONATE 0.05% NA SPR 16 GM BTL (*BKC) 1 SPRAY NASAL (21:12)
[2025-01-17] MEDS: DIBUCAINE 1% OINTMENT 30 GM TUBE 1 APPLIC TOPICAL (21:13)
[2025-01-17 21:22] LABS: Platelet Count Result 95 k/mm3 (150-375)
[2025-01-17 21:24] LABS: Anion Gap 10 mmol/L (4-12); Blood Urea Nitrogen 12 mg/dL (9-20); Calcium 9.1 mg/dL (8.4-10.2); Carbon Dioxide 20 mmol/L (22-30); Chloride 110 mmol/L (98-107); Estimated CRCL calculation 74 ml/min; Estimated Glomerular Filt Rate > 60; Glucose 152 mg/dL (65-110); Potassium 3.6 mmol/L (3.4-5.0); Sodium 140 mmol/L (137-145)
[2025-01-17 21:28] LABS: Anisocytosis 1+; Band Neutrophils Percent 0 % (0-6); Hypochromasia 1+; Ovalocytes 1+; Schistocytes None Seen
[2025-01-17 21:34] LABS: Partial Thromboplastin Time 97.2 Seconds (22.3-36.8)
[2025-01-17] MEDS: ALBUMIN HUMAN 25% 25 GM/100 ML 200 ML IVPB (23:01)
[2025-01-17] MEDS: MIDODRINE HCL 10 MG TABLET PO (23:11)
[2025-01-18] VITALS (7 sets, daily range): BP systolic 91–113; BP diastolic 45–60; PULSE 94–112; RESP 16–20; TEMP 36.4–36.9; O2SAT 97–100
--- NOTE | 2025-01-18 | ECHO_ITS ---
Patient Info Name: Jim Moralez Age: 85 years : 1940 Gender: Male Ht: 73 in Wt: 191 lbs BSA: 2.12 m2 BP: 103 / 45 mmHg Heart Rhythm: Atrial Fibrillation Technical Quality: Good Exam Date: 01/18/2025 9:25 AM Patient Status: I Admit Date: 01/13/2025 Exam Type: CA echo doppler color flow Complete two-dimensional, color flow and Doppler transthoracic echocardiogram is performed. Staff Referring Physician: Kiara Fox Marzipan Maker: Herminia Clarke Attending Provider: Karthik Grey MD Summary 1. Complete two-dimensional, color flow and Doppler transthoracic echocardiogram is performed. 2. Left ventricular chamber dimension is normal. 3. Left ventricular systolic function is normal, estimated at 55-60. 4. There is mildly increased left ventricular wall thickness. 5. The left ventricular diastolic function is abnormal. 6. Right ventricular chamber dimension is mildly enlarged. 7. Right ventricular systolic function is normal. 8. Left atrial chamber dimension is mildly enlarged. 9. Right atrial chamber dimension is mildly enlarged. 10. There is mild mitral valve regurgitation. 11. There is mild tricuspid valve regurgitation. 12. Moderate pulmonary hypertension, estimated pulmonary arterial systolic pressure is 50 mmHg. 13. There is mild pulmonic regurgitation. 14. The aortic root size at the sinus of Valsalva is mildly dilated. 15. The prox ascending aorta size is mildly dilated. Left Ventricle Left ventricular chamber dimension is normal. Left ventricular systolic function is normal, estimated at 55-60. There is mildly increased left ventricular wall thickness. The left ventricular diastolic function is abnormal. Right Ventricle Right ventricular chamber dimension is mildly enlarged. Right ventricular systolic function is normal. Left Atria Left atrial chamber dimension is mildly enlarged. Right Atria Right atrial chamber dimension is mildly enlarged. Atrial Septum Intact interatrial septum visualized by color flow imaging. Aortic Valve The aortic valve is trileaflet. There is mild aortic valve sclerosis. There is no aortic valve stenosis. There is trace aortic valve regurgitation. Pulmonic Valve The pulmonic valve is normal. There is no pulmonic valve stenosis. There is mild pulmonic regurgitation. Mitral Valve The mitral valve has normal leaflets. There is no mitral valve stenosis. There is mild mitral valve regurgitation. Tricuspid Valve The tricuspid valve leaflets are normal. There is no significant tricuspid valve stenosis. There is mild tricuspid valve regurgitation. Moderate pulmonary hypertension, estimated pulmonary arterial systolic pressure is 50 mmHg. Pericardium/Pleural The pericardium appears epicardial fat pad. There is no pericardial effusion. Inferior Vena Cava Normal inferior vena cava with >50% collapse upon inspiration consistent with elevated right atrial pressure, 8 mmHg. Aorta The aortic root size at the sinus of Valsalva is mildly dilated. The prox ascending aorta size is mildly dilated. Left Ventricular Outflow Tract Name Value Normal LVOT 2D LVOT Diameter 2.1 cm LVOT Doppler LVOT Peak Velocity 98 cm/s LVOT Peak Gradient 4 mmHg LVOT Mean Gradient 2 mmHg LVOT VTI 18 cm LVOT Stroke Volume 63 ml LVOT CO 6.7 l/min LVOT CI 3.2 l/min/m2 Pulmonic Valve Name Value Normal RVOT Doppler RVOT Peak Velocity 63 cm/s RVOT Peak Gradient 2 mmHg PV Doppler PV Peak Velocity 72 cm/s PV Peak Gradient 2 mmHg Mitral Valve Name Value Normal MV Diastolic Function MV E Peak Velocity 64 cm/s MV A Peak Velocity 57 cm/s MV E/A 1.1 MV Decel Time (PW) 279 ms MV Annular TDI MV E/e' (Septal) 8.4 MV E/e' (Lateral) 10.9 MV E/e' (Average) 9.6 Tricuspid Valve Name Value Normal TV Regurgitation Doppler TR Peak Velocity 323 cm/s TR Peak Gradient 41 mmHg Estimated PAP/RSVP RA Pressure 8 mmHg <=5 PA Systolic Pressure 50 mmHg <36 RV Systolic Pressure 50 mmHg <36 Aortic Valve Name Value Normal AV Doppler AV Peak Velocity 145 cm/s AV Peak Gradient 8 mmHg AV Area (Cont Eq Artemio) 2.4 cm2 AV DI (Artemio) 0.68 AV Regurgitation 2D LVOT Area 3.6 cm2 Ventricles Name Value Normal LV Dimensions 2D/MM IVS Diastolic Thickness (2D) 1.3 cm 0.6-1.0 LVID Diastole (2D) 4.1 cm 4.2-5.8 LVIW Diastolic Thickness (2D) 1.2 cm 0.6-1.0 LVID Systole (2D) 3.0 cm 2.5-4.0 LVOT Diameter 2.1 cm LV Mass (2D Cubed) 189.99 g 88.00-224.00 LV Mass Index (2D Cubed) 90 g/m2 49-115 Relative Wall Thickness (2D) 0.61 <=0.42 LV Fractional Shortening/Ejection Fraction 2D/MM LV Fractional Shortening (2D) 26 % 25-43 LV EF (2D Teichholz) 52 % LV Diastolic Volume (4C MOD) 113 ml LV EF (4C MOD) 49 % LV Diastolic Volume (2C MOD) 87 ml LV EF (2C MOD) 50 % LV Diastolic Volume (BP MOD) 103 ml 62-150 LV Diastolic Volume Index (BP MOD) 49 ml/m2 34-74 LV Systolic Volume (BP MOD) 51 ml 21-61 LV Systolic Volume Index (BP MOD) 24 ml/m2 11-31 LV EF (BP MOD) 50 % 52-72 LV Diastolic Length (4C) 8.5 cm LV Systolic Length (4C) 7.3 cm LV Stroke Volume (4C MOD) 55 ml Atria Name Value Normal LA Dimensions LA Volume (4C A-L) 50 ml RA Dimensions RA Systolic [place] Length (4C) 5.2 cm 2.1-2.7 RA Area (4C) 16.4 cm2 <=18.0 Report Signatures
[2025-01-18 00:23] LABS: Hematocrit 25.2 % (42.0-52.0); Hemoglobin 8.1 g/dL (14.0-18.0); Immature Platelet Fraction Pct 3.2 % (0.9-11.2); Mean Corpuscular HGB Conc 32.1 g/dl (32-36); Mean Corpuscular Hemoglobin 29.0 pg (26-34); Mean Corpuscular Volume 90.3 fl (80-100); Platelet Count Result 89 k/mm3 (150-375); Red Blood Count 2.79 M/mm3 (4.6-6.20); White Blood Count 6.3 K/mm3 (4.5-10.0)
[2025-01-18] MEDS: HYDROcodone/acetaminophen (*CRX) 5-325 MG TABLET 1 TAB PO ×4 (04:07→21:14)
[2025-01-18] MEDS: metroNIDAZOLE 500 MG/ISO 100ML 500 MG/100 ML BAG 100 MG IVPB ×3 (04:08→21:11)
[2025-01-18] MEDS: LEVOTHYROXINE SODIUM 75 MCG TABLET PO (06:09)
[2025-01-18] MEDS: CEFEPIME 2 GM in SODIUM CHLORIDE 0.9% IV 50 ML 100 ML IVPB ×3 (06:09→21:46)
[2025-01-18] MEDS: METOCLOPRAMIDE HCL INJ 10 MG/2 ML VIAL 5 MG IV PUSH ×3 (06:09→17:21)
[2025-01-18 07:50] LABS: Hematocrit 23.8 % (42.0-52.0); Hemoglobin 7.6 g/dL (14.0-18.0); Immature Granulocyte Percent A 0.8 % (0-0.5); Immature Platelet Fraction Pct 3.0 % (0.9-11.2); Lymphocytes Absolute Auto 0.79 K/mm3 (0.9-3.2); Mean Corpuscular HGB Conc 31.9 g/dl (32-36); Mean Corpuscular Hemoglobin 29.1 pg (26-34); Mean Corpuscular Volume 91.2 fl (80-100); Nucleated Red Blood Cells Absolute Auto 0.000 K/mm3 (0.0-0.012); Nucleated Red Blood Cells Perc 0.0 % (0.0-0.2); Platelet Count Result 94 k/mm3 (150-375); Red Blood Count 2.61 M/mm3 (4.6-6.20); White Blood Count 6.2 K/mm3 (4.5-10.0)
--- NOTE | 2025-01-18 08:05 | P.PNIM_ITS ---
Progress Note: A&P Assessment and Plan (1) Pulmonary embolism: Qualifiers: Acute cor pulmonale presence: with acute cor pulmonale Chronicity: acute Pulmonary embolism type: unspecified Qualified Code(s): I26.09 - Other pulmonary embolism with acute cor pulmonale Code(s): I26.99 - Other pulmonary embolism without acute cor pulmonale Status: Acute (2) Acute on chronic anemia: Code(s): D64.9 - Anemia, unspecified Status: Acute (3) Lactic acidosis: Code(s): E87.20 - Acidosis, unspecified Status: Acute (4) Abnormal urinalysis: Code(s): R82.90 - Unspecified abnormal findings in urine Status: Acute (5) Goals of care, counseling/discussion: Code(s): Z71.89 - Other specified counseling Status: Acute (6) Acute anemia: Code(s): D64.9 - Anemia, unspecified Status: Acute (7) Thrombocytopenia: Code(s): D69.6 - Thrombocytopenia, unspecified Status: Acute Plan Acute PE ACTIVE, monitoring Right heart strain on CT Recent diagnosis of DVT at [facility], was on Eliquis DNR/DNI. Spoke with his daughter and his at the bedside and the patient -- heparin drip on hold for acute drop in Hgb. Spoke with family and held heparin drip and gave 2 units of blood. No plan for invasive interventions. Resumed low dose heparin drip since Hgb stable. Was titrating for low PTT goal but overall stable. PTT was supratherapeutic and had acute blood loss. Titrating for a lower goal without a bolus. 97.2 overnight At 750units/hr was supratherapeutic and held. Started at 500 units/hr but order not showing up overnight with decrease to 500 and 300 so changed to regular heparin drip with titration. Starting at 5units/kg/hr (444units/hr, 4.4ml/hr) today --Not wanting aggressive interventions. Declined option for transfer to higher acuity, but that is appropriate because goals of care primarily palliative with limited interventions. Giving blood for Hgb <7 --Check TTE to follow up right heart strain. --If blood count stable tonight, switch to lovenox --Readdress palliative care or hospice if new hemodynamic changes Anemia ACTIVE, improved Acute, Blood count trending down on heparin drip, s/p 2 units of PRBC's. Possible acute GI bleeding but not planning intervention per discussion with family --Follow blood count and transfuse as able --Restarted low dose heparin drip and checking CBC, PTT q12. Blood count has been stable for several days --H&H 8.1>7.6>7.2, may be partially dilutional with albumin. Thrombocytopenia ACTIVE, stable Plt count 81-117 during admission. Recently on 4 weeks of linezolid which can cause pancytopenia, so changed to an alternate medication. Has been stable on heparin drip Tachycardia HR 97-110 Blood pressure 121/60 --Improving --Resumed albumin for tachycardia. Abdominal Abscess Abdominal pain ACTIVE, acute Recent bladder rupture, treated at [place]. CT abd/pelvis at OSH 01/08 showed evolving sequelae of extraperitoneal bladder rupture within an capsulated mixed gas-fluid collection in the space Retzius and fluid component of which is decreased in size compared to prior examination in continuity with the anterior urinary bladder wall defect fluid directing subjacent to the rectus abdominus musculature no new organized or drainable fluid collection to partially imaged subsegmental bilateral pulmonary emboli as previously seen on the prior CT from 12/27 had been treated with Zosyn, Flagyl and Vanc, then cefepime and Vanc. Was seen by ID. PETERSEN'marlene cefepime and vanc added linezolid on 01/03 and completed 4 weeks of treatment of MRSA bacteremia Spoke with family and not pursuing surgical options given comorbidities --Started empiric Cefepime, Flagyl. Changed zyvox to doxycycline for thrombocytopenia --Follow daily CBC. AM CRP & ESR --Repeat CT CAP in about a week (01/22) to monitor abscess on current antibiotics --Trend CRP, ESR, CBC CT CAP 01/15 1. Multiple abscesses seen anterior to the urinary bladder. 2. Thickened wall of the gallbladder suggestive of cystitis. 3. Free fluid seen in the pelvis and paracolic gutters. 4. Left hydronephrotic changes with no definite stones. 5. Constipation. 6. Bilateral pleural effusion with adjacent atelectasis. 7. Large left renal cyst. 8. Polycystic pancreas. 9. Bilateral fat containing inguinal hernias. Constipation Personally reviewed CT and constipation visible. Had multiple BM's 01/16 --Continue miralax daily, bisacodyl suppository hs if no BM in 48 hours. Goals of Care Counseling, Discussion ACTIVE DNR/DNI with labs and medications. Spoke with patient, , and daughter at bedside and not planning to transfer to outside hospital. Blood count dropped from 7.9 to 5.5>5.4 01/14 and transfused 2 units. Discussed option for GI consult for scope and declined interventions. Also no plan for invasive lines, reviewed option for central line and vasopressors, but would likely be minimal benefit since underlying cause of hypotension would be blood clot or bleeding which have limited options for intervention. Discussed that drop in blood count is complicated since holding drip and blood clots are causing right strain, could lead to hemodynamic changes and medical instability. Planning transfusion. Family aware of potential for deterioration. Not interested in hospice at this point. Acute Pain Abdominal pain IMPROVED, monitoring Overall improved but more abdominal pain today. Generalized discomfort with hyperactive bowel sounds and cramping Abdominal hyperactive. Had a BM. Not eating well --Tylenol, Vicodin,add Morphine 2-4mg q4 prn since not taking PO well --Schedule simethicone and bentyl prn for abdominal cramping --Stool for C-diff if worsening MRSA Bacteremia Recently treated for MRSA bacteremia, completed 01/13. TTE 01/03 no vegetations. Also treated for sacral pyoderma gangrenosum. Was seen by dermatology and recently completed a steroid taper --Follow up Blood cultures x2 01/15 No growth to date --Follow WBC, ESR, CRP, temps Confusion Hx dementia. Multiple medical problems and having pain requiring opiates. Also recent infection --Workup for infection, anemia Malnutrition Hypokalemia Hypophosphatemia Hypomagnesemia ACTIVE 01/15 Potassium 3.1, Phos 1.9. 20meq Kcl, 15mmol kphos, and 250 kphos tabs BID x2 doses, 40meq IV 01/16 Potassium 3.1, 40meq x2. Mag 1.8 s/p 2G IV mag today. Phos 1.8, 20mmol 01/17-01/18 Potassium 3.2 40meq IV repeat 3.6 20meq IV today --Follow potassium, mag, and phos --Has a poor appetite --DC'd tele since no CPR VT Intermittent runs of VT. QTc prolonged so avoiding QT prolonging medications --DNR/DNI --Treating electrolyte abnormalities Lactic acidosis RESOLVED significant lactic acidosis likely due to a combination of factors id metformin use,, decreased perfusion and or some hepatic dysfunction. The patient did have lactic acidosis during his last hospitalization that did not completely normalize. Lactic acid is definitely higher than prior values but this is in the setting of acute PE. Metformin is on hold. Patient's lactic acid did improve after 1 L fluid bolus. Diabetes Blood sugars intermittently 200's --SSI prn UTI RESOLVED Patient has abnormal urinalysis that could be consistent with UTI. Patient but being treated for UTI with linezolid as outpatient. Linezolid will be continued until the 8th. Patient received 1 dose of Rocephin in the ER which will be discontinued. Urine cultures are pending. Urine culture grew anthony glabrata Patient's condition: Serious, high risk for deterioration Prognosis: Poor MEDICAL DECISION MAKING NARRATIVE -Patient seen and examined at bedside -Collaborated with patient's nurse and family at the bedside in detail and addressed all concerns -Labs, electrolytes, radiology, investigations and test results reviewed -ED/Consult/Nursing/Ancilliary notes on the chart reviewed and appreciated Patient has been admitted as observation status Time Spent With Patient Time: 58 minutes Subjective Date/time seen: 01/18/25 10:25 Interval history: PTT supratherapeutic. Hgb stable Restarted albumin for soft blood pressures and poor PO intake Reporting abdominal pain. Has had bowel movements, having some gas pain and distention Adding simethicone Check C-diff if diarrhea with antibiotics Review of Systems Review of Systems: Review of systems unobtainable due to patient's dementia Exam Narrative: Weight 88.9 kg BMI 25.9 General - Awake and alert. No acute distress Eyes - PERRLA, EOM intact ENT - No thrush, No erythema Neck - No noticeable or palpable swelling Lymph Nodes - No lymphadenopathy Cardiovascular - RRR no m/r/g, no JVD Lungs: Clear to auscultation, decreased No wheezing, use of accessory muscles, no crackles Skin - Skin warm and dry, no rashes. Wounds to arms wrapped Abdomen - Hyperactive bowel sounds, abdomen soft, generalized abdominal tenderness, distended Extremities - Generalized edema, left >right leg, no cyanosis or clubbing Musculoskeletal - 4/5 strength, normal range of motion, no swollen or erythematous joints. Neurological ? Alert and oriented x 2, CN 2-12 grossly intact. Psych: Normal mood and affect Objective Data Vital Signs Vital Signs: Vital Signs - 24 hr 01/17/25 14:12 01/17/25 20:00 01/17/25 20:50 Temperature 96.5 F L 97.8 F Pulse Rate 111 H 104 H Respiratory Rate 18 20 Blood Pressure 94/47 L 96/55 L Pulse Oximetry 96 99 Oxygen Delivery Room Air 01/18/25 00:21 01/18/25 03:00 01/18/25 06:00 Temperature 98.4 F Pulse Rate 106 H Respiratory Rate 16 20 Blood Pressure 91/56 L 113/58 L 103/45 L Pulse Oximetry 98 100 Oxygen Delivery Intake/Output Intake/Output: Intake & Output 01/15/25 01/16/25 01/17/25 01/18/25 23:59 23:59 23:59 23:59 Intake Total 2014 4815 875 200 Output Total 6544 704 3391 425 Balance 915 2165 -225 -225 Meds/Results Medications: Active Medications Generic Name Dose Route Start Last Admin Trade Name Freq PRN Reason Stop Dose Admin Acetaminophen 650 mg 01/12/25 21:07 Acetaminophen 325 Mg Tablet PO Q6H PRN pain 1-3 or fever Hydrocodone Bitart/Acetaminophen 1 tab 01/13/25 09:00 01/18/25 04:07 Hydrocodone/Acetaminophen (*Crx) 5-325 Mg Tablet PO 1 tab Q6H NEHEIMAH Administration Aspirin 81 mg 01/13/25 09:00 01/17/25 08:02 Aspirin 81 Mg Enteric Tablet PO 81 mg DAILY NEHEMIAH Administration Bisacodyl 10 mg 01/17/25 21:00 01/17/25 21:12 Bisacodyl 10 Mg Suppository RECTAL 10 mg HS NEHEMIAH Administration Calcium Carbonate 500 mg 01/17/25 12:00 01/17/25 11:16 Calcium/Vitamin D 500 Mg/5 Mcg (200 I.U.) Tablet PO Not Given DAILY@1200 NEHEMIAH Dextrose 12.5 gm 01/13/25 02:29 Dextrose 50% 25 Gm/50 Ml Syringe IV PUSH PRN PRN Hypoglycemia Protocol Dibucaine 1 applic 01/12/25 21:07 01/17/25 21:13 Dibucaine 1% Ointment 30 Gm Tube TOPICAL 1 applic QID PRN Administration Pain of groin ulcer Donepezil HCl 5 mg 01/12/25 21:10 01/17/25 21:11 Donepezil Hcl 5 Mg Tablet PO 5 mg QHS NEHEMIAH Administration Doxazosin Mesylate 2 mg 01/12/25 21:25 01/17/25 21:11 Doxazosin Mesylate 2 Mg Tablet PO 2 mg QHS NEHEMIAH Administration Doxycycline Hyclate 100 mg 01/17/25 09:00 01/17/25 21:10 Doxycycline Hyclate 100 Mg Tablet PO 100 mg Q12HR NEHEMIAH Administration Dutasteride 0.5 mg 01/13/25 09:00 01/17/25 08:02 Dutasteride 0.5 Mg Capsule PO Not Given DAILY NEHEMIAH Fluticasone Propionate 1 spray 01/12/25 21:30 01/17/25 21:12 Fluticasone Propionate 0.05% Na Spr 16 Gm Btl (*Bkc) NASAL 1 spray Q12HR NEHEMIAH Administration Fluticasone Propionate 1 spray 01/15/25 21:00 01/17/25 21:13 Fluticasone Propionate 0.05% Na Spr 16 Gm Btl (*Bkc) XX 1 spray Q12H NEHEMIAH Administration Glucagon 1 mg 01/13/25 02:29 Glucagon For Inj 1 Mg Vial IM PRN PRN Hypoglycemia Protocol Glucose 15 gm 01/13/25 02:29 Glucose Oral Gel 15 Gm Of Glucse In 37.5 Gm Tube PO PRN PRN Hypoglycemia Protocol Heparin Sodium/Dextrose 25,000 units in 250 mls @ 3 mls/hr 01/12/25 17:35 01/17/25 12:41 Heparin Sodium/D5w 100 Units/Ml IV CONT 750 units/hr .Q24H NEHEMIAH 7.5 mls/hr Administration Protocol 300 UNITS/HR Dextrose 1,000 mls @ 100 mls/hr 01/13/25 02:29 Dextrose 5% 1,000 Ml IVPB PRN PRN Hypoglycemia Protocol Cefepime HCl 2 gm/ Sodium 50 mls @ 100 mls/hr 01/15/25 22:00 01/18/25 06:09 Chloride IVPB 100 mls/hr Q8H NEHEMIAH Administration Metronidazole 500 mg in 100 mls @ 100 mls/hr 01/15/25 20:00 01/18/25 04:08 Flagyl 500 Mg/Iso Soln 100 Ml IVPB 100 mls/hr Q8H NEHEMIAH Administration Albumin Human 200 mls @ 60 mls/hr 01/16/25 01:00 01/17/25 23:01 Albutein IVPB 60 mls/hr Q8H NEHEMIAH Administration Insulin Aspart 2 - 5 units 01/13/25 08:00 01/17/25 17:15 Insulin Aspart (*Bkc) 100 Units/Ml SUB-Q Not Given TIDWM [facility] Protocol Levothyroxine Sodium 75 mcg 01/13/25 06:30 01/18/25 06:09 Levothyroxine Sodium 75 Mcg Tablet PO 75 mcg DAILY@0630 NEHEMIAH Administration Metoclopramide HCl 5 mg 01/17/25 16:30 01/18/25 06:09 Metoclopramide Hcl Inj 10 Mg/2 Ml Vial IV PUSH 5 mg TIDAC NEHEMIAH Administration Metoprolol Succinate 25 mg 01/13/25 09:00 01/17/25 08:01 Metoprolol Succinate Ext Rel 25 Mg Tabcr PO 25 mg DAILY [facility] Administration Miconazole Nitrate 1 applic 01/13/25 09:00 01/17/25 21:15 Miconazole Nitrate 2% Cream 30 Gm Tube TOPICAL 1 applic Q12HR NEHEMIAH Administration Morphine Sulfate 4 mg 01/15/25 18:57 Morphine Sulfate (*Crx) 4 Mg/Ml Inj IV PUSH Q2H PRN Pain Rated 9-10 Morphine Sulfate 2 mg 01/15/25 18:57 01/17/25 17:51 Morphine Sulfate (*Crx) 2 Mg/Ml Inj IV PUSH 2 mg Q2H PRN Administration Pain Rated 7-8 Oxycodone HCl 5 mg 01/12/25 21:07 01/15/25 12:41 Oxycodone Hcl (*Crx) 5 Mg Tab Ir PO 5 mg Q6H PRN Administration pain 4-10 Pantoprazole Sodium 40 mg 01/17/25 21:00 01/17/25 21:11 Pantoprazole 40 Mg Tablet PO 40 mg Q12HR NEHEMIAH Administration Polyethylene Glycol 17 gm 01/17/25 09:00 01/17/25 11:44 Polyethylene Glycol 3350 17 Gm Powd.Pack PO 01/19/25 08:59 Not Given DAILY NEHEMIAH Senna/Docusate Sodium 2 tab 01/13/25 09:00 01/17/25 21:11 Senna/Docusate Sodium Tablet PO 2 tab Q12HR NEHEMIAH Administration Radiology Results: ITS Impressions Chest CTA 01/12/25 16:59 IMPRESSION: Multiple pulmonary emboli, large clot burden, and evidence of right heart strain. Trace right and small left pleural effusions. 4 mm right upper lobe pulmonary nodule, consider an optional follow-up low-dose noncontrast CT of the chest in one year if the patient is at high risk. Gallbladder hydrops, likely secondary to fasting the absence of right upper qu adrant pain or biliary labs abnormalities. Innumerable pancreatic cysts, which may represent the sequela of chronic pancreatitis, or less likely the uncommon diagnosis of isolated polycystic pancreatic disease. Correlate for pancreatic enzyme abnormalities and any symptoms of vague abdominal pain. Consider nonemergent MRI of the pancreas if there are abdominal symptoms. Results reported telephonically to Dr. Haque by Dr. Barry at 5:19 PM on 01/12/2025. Abdomen/Pelvis CT 01/15/25 19:18 IMPRESSION: 1. Multiple abscesses seen anterior to the urinary bladder. 2. Thickened wall of the gallbladder suggestive of cystitis. 3. Free fluid seen in the pelvis and paracolic gutters. 4. Left hydronephrotic changes with no definite stones. 5. Constipation. 6. Bilateral pleural effusion with adjacent atelectasis. 7. Large left renal cyst. 8. Polycystic pancreas. 9. Bilateral fat containing inguinal hernias. Labs Labs: Laboratory Results - last 24 hr 01/17/25 01/17/25 01/17/25 08:55 11:35 13:43 WBC 6.3 8.1 RBC 2.77 L 2.95 L Hgb 8.2 L 8.5 L Hct 24.5 L 26.1 L MCV 88.4 88.5 MCH 29.6 28.8 MCHC 33.5 32.6 RDW 17.0 H 17.2 H Plt Count 83 L 92 L MPV 9.7 10.3 Immature Gran % (Auto) 1.0 H Neut % (Auto) 80.3 H Lymph % (Auto) 12.0 L [place] % (Auto) 5.4 Eos % (Auto) 1.0 Baso % (Auto) 0.3 Lymph # (Auto) 0.75 L [place] # (Auto) 0.3 Eos # (Auto) 0.1 Baso # (Auto) 0.0 Abs Immat Gran (auto) 0.06 H Absolute Neuts (auto) 5.0 Absolute Nucleated RBC 0.000 Band Neutrophils % Not Reportable Nucleated RBC % 0.0 Platelet Estimate Decreased % Immature Plt Fraction 2.9 3.0 Hypochromasia 1+ Basophilic Stippling 1+ Anisocytosis 1+ Target Cells 1+ Ovalocytes Schistocytes None seen APTT 53.4 H 78.4 H Sodium 139 Potassium 3.2 L Chloride 107 Carbon Dioxide 20 L Anion Gap 12 BUN 12 Creatinine 0.70 Estim Creat Clear Calc 78 Estimated GFR > 60 Glucose 204 H POC Capillary Glucose 186 H Calcium 8.7 Iron 39 L TIBC 107 L % Saturation 36 Ferritin 495.00 H Total Bilirubin 1.5 H AST 25 ALT 17 Alkaline Phosphatase 35 L Total Protein 6.0 L Albumin 4.2 01/17/25 01/17/25 01/17/25 16:45 21:00 22:11 WBC 6.7 RBC 3.07 L Hgb 8.8 L Hct 27.3 L MCV 88.9 MCH 28.7 MCHC 32.2 RDW 17.9 H Plt Count 95 L MPV 9.9 Immature Gran % (Auto) 0.9 H Neut % (Auto) 78.2 H Lymph % (Auto) 14.5 L [place] % (Auto) 4.2 Eos % (Auto) 1.8 Baso % (Auto) 0.4 Lymph # (Auto) 0.97 [place] # (Auto) 0.3 Eos # (Auto) 0.1 Baso # (Auto) 0.0 Abs Immat Gran (auto) 0.06 H Absolute Neuts (auto) 5.2 Absolute Nucleated RBC 0.000 Band Neutrophils % 0 Nucleated RBC % 0.0 Platelet Estimate Decreased % Immature Plt Fraction 3.2 Hypochromasia 1+ Basophilic Stippling Anisocytosis 1+ Target Cells Ovalocytes 1+ Schistocytes None seen APTT 97.2 H Sodium 140 Potassium 3.6 Chloride 110 H Carbon Dioxide 20 L Anion Gap 10 BUN 12 Creatinine 0.74 Estim Creat Clear Calc 74 Estimated GFR > 60 Glucose 152 H POC Capillary Glucose 160 H 208 H Calcium 9.1 Iron TIBC % Saturation Ferritin Total Bilirubin AST ALT Alkaline Phosphatase Total Protein Albumin 01/18/25 01/18/25 00:02 07:31 WBC 6.3 RBC 2.79 L Hgb 8.1 L Hct 25.2 L MCV 90.3 MCH 29.0 MCHC 32.1 RDW 17.8 H Plt Count 89 L MPV 10.9 H Immature Gran % (Auto) Neut % (Auto) Lymph % (Auto) [place] % (Auto) Eos % (Auto) Baso % (Auto) Lymph # (Auto) [place] # (Auto) Eos # (Auto) Baso # (Auto) Abs Immat Gran (auto) Absolute Neuts (auto) Absolute Nucleated RBC Band Neutrophils % Nucleated RBC % Platelet Estimate % Immature Plt Fraction 3.2 Hypochromasia Basophilic Stippling Anisocytosis Target Cells Ovalocytes Schistocytes APTT Sodium Potassium Chloride Carbon Dioxide Anion Gap BUN Creatinine Estim Creat Clear Calc Estimated GFR Glucose POC Capillary Glucose 172 H Calcium Iron TIBC % Saturation Ferritin Total Bilirubin AST ALT Alkaline Phosphatase Total Protein Albumin Quality VTE Prophylaxis VTE prophylaxis: mechanical ordered and pharmacologic ordered Hospitalist MIPS Advance Care Plan I have confirmed that the patient's Advanced Care Plan is present, code status is documented, or surrogate decision maker is listed in patient medical record.: Yes Medication Reconciliation I have utilized all available resources to obtain, update and review the patients current medications (includes all prescriptions, OTC, herbals, cannabis, and nutritional supplements).: Yes
[2025-01-18 08:20] LABS: Partial Thromboplastin Time > 200.0 Seconds (22.3-36.8)
[2025-01-18] MEDS: ALBUMIN HUMAN 25% 25 GM/100 ML 200 ML IVPB ×2 (09:35→17:24)
[2025-01-18] MEDS: DOXYCYCLINE HYCLATE 100 MG TABLET PO ×2 (09:43→21:13)
[2025-01-18] MEDS: DUTASTERIDE 0.5 MG CAPSULE PO (09:43)
[2025-01-18] MEDS: METOPROLOL SUCCINATE EXT REL 25 MG TABCR PO (09:44)
[2025-01-18] MEDS: ASPIRIN 81 MG ENTERIC TABLET PO (09:44)
[2025-01-18] MEDS: MICONAZOLE NITRATE 2% CREAM 30 GM TUBE 1 APPLIC TOPICAL ×2 (09:51→21:46)
[2025-01-18] MEDS: FLUTICASONE PROPIONATE 0.05% NA SPR 16 GM BTL (*BKC) 1 SPRAY XX ×2 (09:51→21:45)
[2025-01-18] MEDS: CALCIUM/VITAMIN D 500 MG/5 MCG (200 I.U.) TABLET PO (12:02)
[2025-01-18] MEDS: ACETAMINOPHEN 325 MG TABLET 650 MG PO (12:02)
[2025-01-18] MEDS: oxyCODONE HCL (*CRX) 5 MG TAB IR PO (12:40)
[2025-01-18 12:43] LABS: Hematocrit 22.9 % (42.0-52.0); Hemoglobin 7.2 g/dL (14.0-18.0); Immature Granulocyte Percent A 1.1 % (0-0.5); Immature Platelet Fraction Pct 3.1 % (0.9-11.2); Lymphocytes Absolute Auto 0.65 K/mm3 (0.9-3.2); Mean Corpuscular HGB Conc 31.4 g/dl (32-36); Mean Corpuscular Hemoglobin 29.1 pg (26-34); Mean Corpuscular Volume 92.7 fl (80-100); Nucleated Red Blood Cells Absolute Auto 0.000 K/mm3 (0.0-0.012); Nucleated Red Blood Cells Perc 0.0 % (0.0-0.2); Platelet Count Result 90 k/mm3 (150-375); Red Blood Count 2.47 M/mm3 (4.6-6.20); White Blood Count 5.2 K/mm3 (4.5-10.0)
[2025-01-18 12:52] LABS: INR 1.8; Prothrombin Time 20.7 Seconds (11.1-14.7)
[2025-01-18 12:53] LABS: Partial Thromboplastin Time 49.9 Seconds (22.3-36.8)
[2025-01-18] MEDS: HEPARIN SOD/D5W 100 UNITS/ML 25,000 UNITS/250 ML BAG IV CONT (14:56)
[2025-01-18] MEDS: KCL 20 MEQ/SW 100 ML 100 ML 50 MEQ IVPB (15:38)
[2025-01-18] MEDS: SIMETHICONE 125 MG CHEW TAB PO ×2 (17:21→21:24)
[2025-01-18] MEDS: BISACODYL 10 MG SUPPOSITORY RECTAL (21:12)
[2025-01-18] MEDS: SENNA/DOCUSATE SODIUM TABLET 2 TAB PO (21:13)
[2025-01-18] MEDS: DOXAZOSIN MESYLATE 2 MG TABLET PO (21:13)
[2025-01-18] MEDS: PANTOPRAZOLE 40 MG TABLET PO (21:14)
[2025-01-18] MEDS: DONEPEZIL HCL 5 MG TABLET PO (21:15)
[2025-01-18 21:18] LABS: Hematocrit 22.3 % (42.0-52.0); Hemoglobin 7.1 g/dL (14.0-18.0); Immature Granulocyte Percent A 1.5 % (0-0.5); Immature Platelet Fraction Pct 2.8 % (0.9-11.2); Lymphocytes Absolute Auto 0.78 K/mm3 (0.9-3.2); Mean Corpuscular HGB Conc 31.8 g/dl (32-36); Mean Corpuscular Hemoglobin 29.1 pg (26-34); Mean Corpuscular Volume 91.4 fl (80-100); Nucleated Red Blood Cells Absolute Auto 0.000 K/mm3 (0.0-0.012); Nucleated Red Blood Cells Perc 0.0 % (0.0-0.2); Platelet Count Result 92 k/mm3 (150-375); Red Blood Count 2.44 M/mm3 (4.6-6.20); White Blood Count 4.8 K/mm3 (4.5-10.0)
[2025-01-18 21:39] LABS: Partial Thromboplastin Time 64.7 Seconds (22.3-36.8)
[2025-01-19] MEDS: ALBUMIN HUMAN 25% 25 GM/100 ML 200 ML IVPB (01:10)
[2025-01-19] MEDS: HYDROcodone/acetaminophen (*CRX) 5-325 MG TABLET 1 TAB PO ×4 (03:14→21:36)
[2025-01-19] MEDS: metroNIDAZOLE 500 MG/ISO 100ML 500 MG/100 ML BAG 100 MG IVPB ×3 (03:14→21:23)
[2025-01-19 05:48] VITALS: BP 125/70; PULSE 94; RESP 20; TEMP 36.6; O2SAT 99
[2025-01-19] MEDS: CEFEPIME 2 GM in SODIUM CHLORIDE 0.9% IV 50 ML 100 ML IVPB ×3 (06:21→21:24)
[2025-01-19] MEDS: LEVOTHYROXINE SODIUM 75 MCG TABLET PO (06:21)
[2025-01-19] MEDS: SIMETHICONE 125 MG CHEW TAB PO ×4 (06:21→21:36)
[2025-01-19] MEDS: METOCLOPRAMIDE HCL INJ 10 MG/2 ML VIAL 5 MG IV PUSH ×3 (06:21→15:49)
[2025-01-19 06:48] LABS: Hematocrit 23.7 % (42.0-52.0); Hemoglobin 7.6 g/dL (14.0-18.0); Immature Granulocyte Percent A 1.3 % (0-0.5); Immature Platelet Fraction Pct 3.3 % (0.9-11.2); Lymphocytes Absolute Auto 0.74 K/mm3 (0.9-3.2); Mean Corpuscular HGB Conc 32.1 g/dl (32-36); Mean Corpuscular Hemoglobin 29.6 pg (26-34); Mean Corpuscular Volume 92.2 fl (80-100); Nucleated Red Blood Cells Absolute Auto 0.000 K/mm3 (0.0-0.012); Nucleated Red Blood Cells Perc 0.0 % (0.0-0.2); Platelet Count Result 100 k/mm3 (150-375); Red Blood Count 2.57 M/mm3 (4.6-6.20); White Blood Count 4.6 K/mm3 (4.5-10.0)
[2025-01-19 06:59] LABS: Partial Thromboplastin Time 58.3 Seconds (22.3-36.8)
[2025-01-19 07:09] LABS: Anion Gap 13 mmol/L (4-12); Blood Urea Nitrogen 13 mg/dL (9-20); CRP 5.1 mg/dL (<1.0); Calcium 9.6 mg/dL (8.4-10.2); Carbon Dioxide 21 mmol/L (22-30); Chloride 110 mmol/L (98-107); Estimated CRCL calculation 75 ml/min; Estimated Glomerular Filt Rate > 60; Glucose 157 mg/dL (65-110); Magnesium 2.0 mg/dL (1.6-2.3); Potassium 3.2 mmol/L (3.4-5.0); Sodium 144 mmol/L (137-145)
--- NOTE | 2025-01-19 07:53 | P.PNIM_ITS ---
Progress Note: A&P Assessment and Plan (1) Pulmonary embolism: Qualifiers: Acute cor pulmonale presence: with acute cor pulmonale Chronicity: acute Pulmonary embolism type: unspecified Qualified Code(s): I26.09 - Other pulmonary embolism with acute cor pulmonale Code(s): I26.99 - Other pulmonary embolism without acute cor pulmonale Status: Acute (2) Acute on chronic anemia: Code(s): D64.9 - Anemia, unspecified Status: Acute (3) Lactic acidosis: Code(s): E87.20 - Acidosis, unspecified Status: Acute (4) Abnormal urinalysis: Code(s): R82.90 - Unspecified abnormal findings in urine Status: Acute (5) Goals of care, counseling/discussion: Code(s): Z71.89 - Other specified counseling Status: Acute (6) Acute anemia: Code(s): D64.9 - Anemia, unspecified Status: Acute (7) Thrombocytopenia: Code(s): D69.6 - Thrombocytopenia, unspecified Status: Acute (8) Constipation: Code(s): K59.00 - Constipation, unspecified Status: Acute (9) Hypokalemia: Code(s): E87.6 - Hypokalemia Status: Acute Plan Next of Kin, Vianney Moralez [phone] Acute PE ACTIVE, improved, monitoring Right heart strain on CT 01/15. Recent diagnosis of DVT at SNF, was on Eliquis. Not requiring oxygen. Tachycardia resolved. DNR/DNI. Spoke with his daughter and his at the bedside and the patient -- On a heparin drip from 01/15-01/19 for concern for bleeding. Hgb has ranged from 7.1-8.1 the last 2 days, 7.6 this morning. Acute drop on 01/14 (7.9>5.4 and received 2 unit PRBC's) No report of acute blood loss or melena. Changed to Lovenox 01/19 01/18 TTE no evidence of heart strain Spoke with family members daily ( and daughter) and aggressive interventions not goals of care. Declined option for transfer to higher acuity, but that is appropriate because goals of care primarily palliative with limited interventions. Giving blood for Hgb <7 --Readdress palliative care or hospice if new hemodynamic changes Anemia ACTIVE, improved, monitoring Acute, Blood count trending down on heparin drip, s/p 2 units of PRBC's 01/14. Concern for acute GI bleeding but never had melena. Not planning intervention per discussion with family. No plan for scope. No report of hematoma on CT, but was not a CT angio --Follow blood count and transfuse as able for Hgb <7 -- Blood count has been stable for several days --H&H 8.1>7.6>7.2<7.6, may have been partially dilutional with albumin. --No report of melena and stool normal brown on exam 01/19 Thrombocytopenia ACTIVE, stable, monitoring Plt count 81-117 during admission. Up to 100. Recently on 4 weeks of linezolid which can cause pancytopenia, so changed to an alternate medication. Was stable on heparin drip Tachycardia RESOLVED HR 97-110 Blood pressure 121/60 --Received fluids and albumin for tachycardia . Abdominal Abscess Abdominal pain ACTIVE, acute Recent bladder rupture, treated at [place]. CT abd/pelvis at OSH 01/08 showed evolving sequelae of extraperitoneal bladder rupture within an capsulated mixed gas-fluid collection in the space Retzius and fluid component of which is decreased in size compared to prior examination in continuity with the anterior urinary bladder wall defect fluid directing subjacent to the rectus abdominus musculature no new organized or drainable fluid collection to partially imaged subsegmental bilateral pulmonary emboli as previously seen on the prior CT from 12/27 had been treated with Zosyn, Flagyl and Vanc, then cefepime and Vanc. Was seen by ID at OSH. DC'd cefepime and vanc & started linezolid on 01/03 and completed 4 weeks of treatment of MRSA bacteremia Spoke with family and not pursuing surgical options given comorbidities Suspect suprapubic pain 2/2 abscess and suspect generalized pain related to abdominal distention so started simethicone and bentyl prn --01/15 Started empiric Cefepime, Flagyl. Changed zyvox to doxycycline for thrombocytopenia. Repeat CT CAP in about a week (01/22) to monitor abscess on current antibiotics before deciding end date. Consider a 3 week course and outpatient ID follow up at the [facility] ID clinic if improving [phone] --Pain control: Tylenol, [place], Dilaudid prn. Ideally would limit opiates for gastric distention/bloating but will continue for abdominal abscess/recent bladder perforation --Follow daily CBC. Weekly CRP & ESR --Do not remove Nuñez except with urology consultation. No acute indication for urology consultation because no plan for interventions at this point CT CAP 01/15 1. Multiple abscesses seen anterior to the urinary bladder. 2. Thickened wall of the gallbladder suggestive of cystitis. 3. Free fluid seen in the pelvis and paracolic gutters. 4. Left hydronephrotic changes with no definite stones. 5. Constipation. 6. Bilateral pleural effusion with adjacent atelectasis. 7. Large left renal cyst. 8. Polycystic pancreas. 9. Bilateral fat containing inguinal hernias. Constipation RESOLVED Personally reviewed CT and constipation visible. Had multiple BM's 01/16 --Continue miralax daily, bisacodyl suppository hs if no BM in 48 hours. Goals of Care Counseling, Discussion ACTIVE DNR/DNI with labs and medications. Spoke with patient, , and daughter at bedside and not planning to transfer to outside hospital. Blood count dropped from 7.9 to 5.5>5.4 01/14 and transfused 2 units. Discussed option for GI consult for scope and declined interventions. Also no plan for invasive lines, reviewed option for central line and vasopressors, but would likely be minimal benefit since underlying cause of hypotension would be blood clot or bleeding which have limited options for intervention. Discussed that drop in blood count is complicated since holding drip and blood clots are causing right strain, could lead to hemodynamic changes and medical instability. Planning transfusion. Family aware of potential for deterioration. Not interested in hospice at this point. Acute Pain Abdominal pain IMPROVED, monitoring Overall improved but more abdominal pain intermittently. Severe pain this AM, improved after a BM but still with suprapubic pain. Generalized discomfort with hyperactive bowel sounds and cramping Abdominal hyperactive. Had a BM. Not eating well. --Tylenol, Vicodin,add Morphine 2-4mg q4 prn since not taking PO well --Schedule simethicone and bentyl prn for abdominal cramping --Stool for C-diff if worsening --Consider IV Vanc if new fevers MRSA Bacteremia Recently treated for MRSA bacteremia, completed 01/13. TTE 01/03 no vegetations. Also treated for sacral pyoderma gangrenosum. Was seen by dermatology and recently completed a steroid taper --Follow up Blood cultures x2 01/15 No growth to date --Follow WBC, ESR, CRP, temps Sacral wound Wound care following. Recently treated with a course of steroids at the outside hospital per Dermatology recs for pyoderma gangrenosum --treating topical steroid spray and avoiding systemic steroids given infection Confusion Hx dementia. Multiple medical problems and having pain requiring opiates. Also recent infection --Workup for infection, anemia Malnutrition Hypokalemia Hypophosphatemia Hypomagnesemia ACTIVE 01/15 Potassium 3.1, Phos 1.9. 20meq Kcl, 15mmol kphos, and 250 kphos tabs BID x2 doses, 40meq IV 01/16 Potassium 3.1, 40meq x2. Mag 1.8 s/p 2G IV mag today. Phos 1.8, 20mmol 01/17-01/18 Potassium 3.2 40meq IV repeat 3.6 20meq IV today 01/19 Potassium 3.2. Schedule potassium 10 TID x2 days --Follow potassium, mag, and phos --Has a poor appetite, eating bites --DC'd tele since no CPR VT Intermittent runs of VT. QTc prolonged so avoiding QT prolonging medications --DNR/DNI --Treating electrolyte abnormalities --Not on telemetry since DNR/DNI Lactic acidosis RESOLVED significant lactic acidosis likely due to a combination of factors id metformin use,, decreased perfusion and or some hepatic dysfunction. The patient did have lactic acidosis during his last hospitalization that did not completely normalize. Lactic acid is definitely higher than prior values but this is in the setting of acute PE. Metformin is on hold. Patient's lactic acid did improve after 1 L fluid bolus. Diabetes MONITORING Blood sugars 124-200. Intermittently 200's. --SSI prn UTI RESOLVED Patient has abnormal urinalysis that could be consistent with UTI. Patient but being treated for UTI with linezolid as outpatient. Linezolid will be continued until the . Patient received 1 dose of Rocephin in the ER which will be discontinued. Urine cultures are pending. Urine culture grew anthony glabrata Patient's condition: Serious, high risk for deterioration Prognosis: Poor MEDICAL DECISION MAKING NARRATIVE -Patient seen and examined at bedside -Collaborated with patient's nurse and family at the bedside in detail and addressed all concerns -Labs, electrolytes, radiology, investigations and test results reviewed -ED/Consult/Nursing/Ancilliary notes on the chart reviewed and appreciated Patient has been admitted as observation status Time Spent With Patient Time: 69 minutes Subjective Date/time seen: 01/19/25 08:15 Interval history: Reporting acute abdominal pain this morning. Was severe, improved somewhat without treatment but continues to have pain through the day. Also cramping pain Hgb stable overnight. Switching heparin drip to lovenox BM's brown and soft, not having diarrhea no concern for c-diff or bleeding by appearance Potassium low, repleting Review of Systems Review of Systems: Review of systems unobtainable due to patient's dementia Exam Narrative: Weight 88.9 kg BMI 25.9 General - Awake and alert. No acute distress Eyes - PERRLA, EOM intact ENT - No thrush, No erythema Neck - No noticeable or palpable swelling Lymph Nodes - No lymphadenopathy Cardiovascular - RRR no m/r/g, no JVD Lungs: Clear to auscultation, decreased No wheezing, use of accessory muscles, no crackles Skin - Skin warm and dry, no rashes. Wounds to arms wrapped Abdomen - Hyperactive bowel sounds, abdomen soft, tender to low abdomen, suprapubic, generalized tenderness, distended Extremities - Generalized edema, left >right leg, no cyanosis or clubbing Musculoskeletal - 4/5 strength, normal range of motion, no swollen or erythematous joints. Neurological ? Alert and oriented x 2, CN 2-12 grossly intact. Psych: Normal mood and affect Objective Data Vital Signs Vital Signs: Vital Signs - 24 hr 01/18/25 09:44 01/18/25 09:51 01/18/25 14:00 Temperature 97.6 F Pulse Rate 112 H 97 Respiratory Rate 16 Blood Pressure 106/60 Pulse Oximetry 97 Oxygen Delivery Room Air 01/18/25 20:00 01/18/25 20:51 01/18/25 21:13 Temperature 98.3 F Pulse Rate 94 Respiratory Rate 16 Blood Pressure 102/52 L Pulse Oximetry 98 98 Oxygen Delivery Room Air Room Air 01/19/25 05:48 Temperature 97.8 F Pulse Rate 94 Respiratory Rate 20 Blood Pressure 125/70 Pulse Oximetry 99 Oxygen Delivery Intake/Output Intake/Output: Intake & Output 01/16/25 01/17/25 01/18/25 01/19/25 23:59 23:59 23:59 23:59 Intake Total 2515 875 2009.0 200 Output Total 350 1100 925 600 Balance 2165 -225 1084.0 -400 Meds/Results Medications: Active Medications Generic Name Dose Route Start Last Admin Trade Name Freq PRN Reason Stop Dose Admin Acetaminophen 650 mg 01/12/25 21:07 01/18/25 12:02 Acetaminophen 325 Mg Tablet PO 650 mg Q6H PRN Administration pain 1-3 or fever Hydrocodone Bitart/Acetaminophen 1 tab 01/13/25 09:00 01/19/25 03:14 Hydrocodone/Acetaminophen (*Crx) 5-325 Mg Tablet PO 1 tab Q6H NEHEMIAH Administration Aspirin 81 mg 01/13/25 09:00 01/18/25 09:44 Aspirin 81 Mg Enteric Tablet PO 81 mg DAILY NEHEMIAH Administration Bisacodyl 10 mg 01/17/25 21:00 01/18/25 21:12 Bisacodyl 10 Mg Suppository RECTAL 10 mg HS NEHEMIAH Administration Calcium Carbonate 500 mg 01/17/25 12:00 01/18/25 12:02 Calcium/Vitamin D 500 Mg/5 Mcg (200 I.U.) Tablet PO 500 mg DAILY@1200 NEHEMIAH Administration Dextrose 12.5 gm 01/13/25 02:29 Dextrose 50% 25 Gm/50 Ml Syringe IV PUSH PRN PRN Hypoglycemia Protocol Dibucaine 1 applic 01/12/25 21:07 01/17/25 21:13 Dibucaine 1% Ointment 30 Gm Tube TOPICAL 1 applic QID PRN Administration Pain of groin ulcer Dicyclomine HCl 20 mg 01/18/25 12:32 Dicyclomine Hcl 10 Mg Capsule PO QID PRN Abdominal Cramping Donepezil HCl 5 mg 01/12/25 21:10 01/18/25 21:15 Donepezil Hcl 5 Mg Tablet PO 5 mg QHS NEHEMIAH Administration Doxazosin Mesylate 2 mg 01/12/25 21:25 01/18/25 21:13 Doxazosin Mesylate 2 Mg Tablet PO 2 mg QHS NEHEMIAH Administration Doxycycline Hyclate 100 mg 01/17/25 09:00 01/18/25 21:13 Doxycycline Hyclate 100 Mg Tablet PO 100 mg Q12HR NEHEMIAH Administration Dutasteride 0.5 mg 01/13/25 09:00 01/18/25 09:43 Dutasteride 0.5 Mg Capsule PO 0.5 mg DAILY NEHEMIAH Administration Enoxaparin Sodium 90 mg 01/19/25 09:00 Enoxaparin 1 Mg/Kg SUB-Q Q12HR NEHEMIAH Fluticasone Propionate 1 spray 01/15/25 21:00 01/18/25 21:45 Fluticasone Propionate 0.05% Na Spr 16 Gm Btl (*Bkc) XX 1 spray Q12H NEHEMIAH Administration Fluticasone Propionate 1 spray 01/18/25 10:04 Fluticasone Propionate 0.05% Na Spr 16 Gm Btl (*Bkc) NASAL Q12HR PRN allergy symptoms Glucagon 1 mg 01/13/25 02:29 Glucagon For Inj 1 Mg Vial IM PRN PRN Hypoglycemia Protocol Glucose 15 gm 01/13/25 02:29 Glucose Oral Gel 15 Gm Of Glucse In 37.5 Gm Tube PO PRN PRN Hypoglycemia Protocol Dextrose 1,000 mls @ 100 mls/hr 01/13/25 02:29 Dextrose 5% 1,000 Ml IVPB PRN PRN Hypoglycemia Protocol Cefepime HCl 2 gm/ Sodium 50 mls @ 100 mls/hr 01/15/25 22:00 01/19/25 06:21 Chloride IVPB 100 mls/hr Q8H NEHEMIAH Administration Metronidazole 500 mg in 100 mls @ 100 mls/hr 01/15/25 20:00 01/19/25 03:14 Flagyl 500 Mg/Iso Soln 100 Ml IVPB 100 mls/hr Q8H NEHEMIAH Administration Albumin Human 200 mls @ 60 mls/hr 01/16/25 01:00 01/19/25 01:10 Albutein IVPB 60 mls/hr Q8H NEHEMIAH Administration Insulin Aspart 2 - 5 units 01/13/25 08:00 01/18/25 17:23 Insulin Aspart (*Bkc) 100 Units/Ml SUB-Q Not Given TIDWM NEHEMIAH Protocol Levothyroxine Sodium 75 mcg 01/13/25 06:30 01/19/25 06:21 Levothyroxine Sodium 75 Mcg Tablet PO 75 mcg DAILY@0630 NEHEMIAH Administration Metoclopramide HCl 5 mg 01/17/25 16:30 01/19/25 06:21 Metoclopramide Hcl Inj 10 Mg/2 Ml Vial IV PUSH 5 mg TIDAC NEHEMIAH Administration Metoprolol Succinate 25 mg 01/13/25 09:00 01/18/25 09:44 Metoprolol Succinate Ext Rel 25 Mg Tabcr PO 25 mg DAILY NEHEMIAH Administration Miconazole Nitrate 1 applic 01/13/25 09:00 01/18/25 21:46 Miconazole Nitrate 2% Cream 30 Gm Tube TOPICAL 1 applic Q12HR NEHEMIAH Administration Morphine Sulfate 4 mg 01/15/25 18:57 Morphine Sulfate (*Crx) 4 Mg/Ml Inj IV PUSH Q2H PRN Pain Rated 9-10 Morphine Sulfate 2 mg 01/15/25 18:57 01/17/25 17:51 Morphine Sulfate (*Crx) 2 Mg/Ml Inj IV PUSH 2 mg Q2H PRN Administration Pain Rated 7-8 Oxycodone HCl 5 mg 01/12/25 21:07 01/18/25 12:40 Oxycodone Hcl (*Crx) 5 Mg Tab Ir PO 5 mg Q6H PRN Administration pain 4-10 Pantoprazole Sodium 40 mg 01/17/25 21:00 01/18/25 21:14 Pantoprazole 40 Mg Tablet PO 40 mg Q12HR NEHEMIAH Administration Perflutren Lipid Microsphere 0 ml 01/18/25 08:15 Perflutren Lipid Microspheres 1.5 Ml Vial Diluted To 10 Ml Total Volume IV P USH 01/21/25 08:15 ONCE PRN adequate visualization Protocol Polyethylene Glycol 17 gm 01/17/25 09:00 01/18/25 17:22 Polyethylene Glycol 3350 17 Gm Powd.Pack PO 01/19/25 08:59 Not Given DAILY NEHEMIAH Senna/Docusate Sodium 2 tab 01/13/25 09:00 01/18/25 21:13 Senna/Docusate Sodium Tablet PO 2 tab Q12HR NEHEMIAH Administration Simethicone 125 mg 01/18/25 16:30 01/19/25 06:21 Simethicone 125 Mg Chew Tab PO 125 mg ACHS NEHEMIAH Administration Radiology Results: ITS Impressions Chest CTA 01/12/25 16:59 IMPRESSION: Multiple pulmonary emboli, large clot burden, and evidence of right heart strain. Trace right and small left pleural effusions. 4 mm right upper lobe pulmonary nodule, consider an optional follow-up low-dose noncontrast CT of the chest in one year if the patient is at high risk. Gallbladder hydrops, likely secondary to fasting the absence of right upper quadrant pain or biliary labs abnormalities. Innumerable pancreatic cysts, which may represent the sequela of chronic pancreatitis, or less likely the uncommon diagnosis of isolated polycystic pancreatic disease. Correlate for pancreatic enzyme abnormalities and any sym ptoms of vague abdominal pain. Consider nonemergent MRI of the pancreas if there are abdominal symptoms. Results reported telephonically to Dr. Haque by Dr. Barry at 5:19 PM on 01/12/2025. Abdomen/Pelvis CT 01/15/25 19:18 IMPRESSION: 1. Multiple abscesses seen anterior to the urinary bladder. 2. Thickened wall of the gallbladder suggestive of cystitis. 3. Free fluid seen in the pelvis and paracolic gutters. 4. Left hydronephrotic changes with no definite stones. 5. Constipation. 6. Bilateral pleural effusion with adjacent atelectasis. 7. Large left renal cyst. 8. Polycystic pancreas. 9. Bilateral fat containing inguinal hernias. Labs Labs: Laboratory Results - last 24 hr 01/18/25 01/18/25 01/18/25 07:31 07:41 11:45 WBC 6.2 RBC 2.61 L Hgb 7.6 L Hct 23.8 L MCV 91.2 MCH 29.1 MCHC 31.9 L RDW 18.0 H Plt Count 94 L MPV 9.8 Immature Gran % (Auto) 0.8 H Neut % (Auto) 80.6 H Lymph % (Auto) 12.8 L [place] % (Auto) 4.5 Eos % (Auto) 1.0 Baso % (Auto) 0.3 Lymph # (Auto) 0.79 L [place] # (Auto) 0.3 Eos # (Auto) 0.1 Baso # (Auto) 0.0 Abs Immat Gran (auto) 0.05 H Absolute Neuts (auto) 5.0 Absolute Nucleated RBC 0.000 Nucleated RBC % 0.0 % Immature Plt Fraction 3.0 ESR PT INR APTT > 200.0 H* Sodium Potassium Chloride Carbon Dioxide Anion Gap BUN Creatinine Estim Creat Clear Calc Estimated GFR Glucose POC Capillary Glucose 172 H 200 H Calcium Magnesium C-Reactive Protein 01/18/25 01/18/25 01/18/25 12:23 16:49 20:55 WBC 5.2 RBC 2.47 L Hgb 7.2 L Hct 22.9 L MCV 92.7 MCH 29.1 MCHC 31.4 L RDW 18.1 H Plt Count 90 L MPV 10.4 Immature Gran % (Auto) 1.1 H Neut % (Auto) 79.6 H Lymph % (Auto) 12.4 L [place] % (Auto) 5.2 Eos % (Auto) 1.3 Baso % (Auto) 0.4 Lymph # (Auto) 0.65 L [place] # (Auto) 0.3 Eos # (Auto) 0.1 Baso # (Auto) 0.0 Abs Immat Gran (auto) 0.06 H Absolute Neuts (auto) 4.2 Absolute Nucleated RBC 0.000 Nucleated RBC % 0.0 % Immature Plt Fraction 3.1 ESR PT 20.7 H INR 1.8 APTT 49.9 H Sodium Potassium Chloride Carbon Dioxide Anion Gap BUN Creatinine Estim Creat Clear Calc Estimated GFR Glucose POC Capillary Glucose 145 H 124 H Calcium Magnesium C-Reactive Protein 01/18/25 01/19/25 01/19/25 21:11 06:15 06:16 WBC 4.8 4.6 RBC 2.44 L 2.57 L Hgb 7.1 L 7.6 L Hct 22.3 L 23.7 L MCV 91.4 92.2 MCH 29.1 29.6 MCHC 31.8 L 32.1 RDW 18.4 H 19.0 H Plt Count 92 L 100 L MPV 9.7 10.4 Immature Gran % (Auto) 1.5 H 1.3 H Neut % (Auto) 74.7 H 74.4 H Lymph % (Auto) 16.4 L 16.1 L [place] % (Auto) 5.3 6.1 Eos % (Auto) 1.7 1.7 Baso % (Auto) 0.4 0.4 Lymph # (Auto) 0.78 L 0.74 L [place] # (Auto) 0.3 0.3 Eos # (Auto) 0.1 0.1 Baso # (Auto) 0.0 0.0 Abs Immat Gran (auto) 0.07 H 0.06 H Absolute Neuts (auto) 3.6 3.4 Absolute Nucleated RBC 0.000 0.000 Nucleated RBC % 0.0 0.0 % Immature Plt Fraction 2.8 3.3 ESR 15 PT INR APTT 64.7 H 58.3 H Sodium 144 Potassium 3.2 L Chloride 110 H Carbon Dioxide 21 L Anion Gap 13 H BUN 13 Creatinine 0.73 Estim Creat Clear Calc 75 Estimated GFR > 60 Glucose 157 H POC Capillary Glucose Calcium 9.6 Magnesium 2.0 C-Reactive Protein 5.1 H Quality VTE Prophylaxis VTE prophylaxis: mechanical ordered and pharmacologic ordered Hospitalist MIPS Advance Care Plan I have confirmed that the patient's Advanced Care Plan is present, code status is documented, or surrogate decision maker is listed in patient medical record.: Yes Medication Reconciliation I have utilized all available resources to obtain, update and review the patients current medications (includes all prescriptions, OTC, herbals, cannabis, and nutritional supplements).: Yes
[2025-01-19] MEDS: DUTASTERIDE 0.5 MG CAPSULE PO (08:50)
[2025-01-19] MEDS: DOXYCYCLINE HYCLATE 100 MG TABLET PO ×2 (08:50→21:36)
[2025-01-19] MEDS: ASPIRIN 81 MG ENTERIC TABLET PO (08:50)
[2025-01-19] MEDS: ENOXAPARIN 100 MG/ML SYRINGE 90 MG SUB-Q ×2 (08:50→21:37)
[2025-01-19] MEDS: PANTOPRAZOLE 40 MG TABLET PO ×2 (08:50→21:36)
[2025-01-19] MEDS: METOPROLOL SUCCINATE EXT REL 25 MG TABCR PO (08:50)
[2025-01-19] MEDS: SENNA/DOCUSATE SODIUM TABLET 2 TAB PO ×2 (08:50→21:35)
[2025-01-19] MEDS: POTASSIUM CHLORIDE 10 MEQ ER TABLET PO ×3 (09:05→15:48)
[2025-01-19] MEDS: DICYCLOMINE HCL 10 MG CAPSULE 20 MG PO (09:05)
[2025-01-19] MEDS: FLUTICASONE PROPIONATE 0.05% NA SPR 16 GM BTL (*BKC) 1 SPRAY XX ×2 (09:06→21:40)
[2025-01-19] MEDS: MICONAZOLE NITRATE 2% CREAM 30 GM TUBE 1 APPLIC TOPICAL (09:06)
[2025-01-19] MEDS: CALCIUM/VITAMIN D 500 MG/5 MCG (200 I.U.) TABLET PO (11:53)
[2025-01-19] MEDS: MORPHINE SULFATE (*CRX) 2 MG/ML INJ IV PUSH ×2 (12:25→19:09)
[2025-01-19 14:00] VITALS: BP 113/67; PULSE 96; RESP 16; TEMP 36.5; O2SAT 99
[2025-01-19 21:09] LABS: Hematocrit 24.8 % (42.0-52.0); Hemoglobin 7.8 g/dL (14.0-18.0); Immature Granulocyte Percent A 1.1 % (0-0.5); Lymphocytes Absolute Auto 0.99 K/mm3 (0.9-3.2); Mean Corpuscular HGB Conc 31.5 g/dl (32-36); Mean Corpuscular Hemoglobin 29.0 pg (26-34); Mean Corpuscular Volume 92.2 fl (80-100); Nucleated Red Blood Cells Absolute Auto 0.000 K/mm3 (0.0-0.012); Nucleated Red Blood Cells Perc 0.0 % (0.0-0.2); Platelet Count Result 103 k/mm3 (150-375); Red Blood Count 2.69 M/mm3 (4.6-6.20); White Blood Count 5.3 K/mm3 (4.5-10.0)
[2025-01-19 21:23] LABS: Partial Thromboplastin Time 51.1 Seconds (22.3-36.8)
[2025-01-19] MEDS: DOXAZOSIN MESYLATE 2 MG TABLET PO (21:36)
[2025-01-19] MEDS: DONEPEZIL HCL 5 MG TABLET PO (21:36)
[2025-01-19 21:46] VITALS: PULSE 110; RESP 20; O2SAT 94
[2025-01-19 21:52] VITALS: BP 115/51; PULSE 73; RESP 20; TEMP 37.4; O2SAT 95
[2025-01-20] MEDS: MORPHINE SULFATE (*CRX) 2 MG/ML INJ IV PUSH ×2 (00:51→04:20)
[2025-01-20] MEDS: metroNIDAZOLE 500 MG/ISO 100ML 500 MG/100 ML BAG 100 MG IVPB ×2 (04:20→11:06)
[2025-01-20] MEDS: LEVOTHYROXINE SODIUM 75 MCG TABLET PO (05:34)
[2025-01-20] MEDS: SIMETHICONE 125 MG CHEW TAB PO ×4 (05:34→20:47)
[2025-01-20] MEDS: CEFEPIME 2 GM in SODIUM CHLORIDE 0.9% IV 50 ML 100 ML IVPB ×3 (05:34→21:10)
[2025-01-20] MEDS: METOCLOPRAMIDE HCL INJ 10 MG/2 ML VIAL 5 MG IV PUSH ×3 (05:38→16:17)
[2025-01-20 05:56] VITALS: BP 123/61; PULSE 72; RESP 16; TEMP 36.3; O2SAT 99
[2025-01-20 08:38] LABS: Anion Gap 15 mmol/L (4-12); Blood Urea Nitrogen 14 mg/dL (9-20); Calcium 9.7 mg/dL (8.4-10.2); Carbon Dioxide 17 mmol/L (22-30); Chloride 112 mmol/L (98-107); Estimated CRCL calculation 87 ml/min; Estimated Glomerular Filt Rate > 60; Glucose 146 mg/dL (65-110); Potassium 2.9 mmol/L (3.4-5.0); Sodium 144 mmol/L (137-145)
[2025-01-20] MEDS: SENNA/DOCUSATE SODIUM TABLET 2 TAB PO ×2 (08:48→20:48)
[2025-01-20] MEDS: METOPROLOL SUCCINATE EXT REL 25 MG TABCR PO (08:49)
[2025-01-20] MEDS: POTASSIUM CHLORIDE 10 MEQ ER TABLET PO ×3 (08:49→16:17)
[2025-01-20] MEDS: ASPIRIN 81 MG ENTERIC TABLET PO (08:49)
[2025-01-20] MEDS: HYDROcodone/acetaminophen (*CRX) 5-325 MG TABLET 1 TAB PO ×3 (08:49→20:48)
[2025-01-20] MEDS: DOXYCYCLINE HYCLATE 100 MG TABLET PO ×2 (08:49→20:48)
[2025-01-20] MEDS: PANTOPRAZOLE 40 MG TABLET PO ×2 (08:49→20:48)
[2025-01-20] MEDS: ENOXAPARIN 100 MG/ML SYRINGE 90 MG SUB-Q ×2 (08:51→20:52)
[2025-01-20] MEDS: DUTASTERIDE 0.5 MG CAPSULE PO (08:53)
[2025-01-20] MEDS: FLUTICASONE PROPIONATE 0.05% NA SPR 16 GM BTL (*BKC) 1 SPRAY XX ×2 (08:54→20:56)
[2025-01-20] MEDS: MICONAZOLE NITRATE 2% CREAM 30 GM TUBE 1 APPLIC TOPICAL ×2 (08:55→20:55)
[2025-01-20 09:15] LABS: Hematocrit 25.4 % (42.0-52.0); Hemoglobin 7.9 g/dL (14.0-18.0); Mean Corpuscular HGB Conc 31.1 g/dl (32-36); Mean Corpuscular Hemoglobin 28.8 pg (26-34); Mean Corpuscular Volume 92.7 fl (80-100); Platelet Count Result 122 k/mm3 (150-375); Red Blood Count 2.74 M/mm3 (4.6-6.20); White Blood Count 5.3 K/mm3 (4.5-10.0)
--- NOTE | 2025-01-20 09:34 | PCNFU ---
Nutrition Follow-Up Complete: Suboptimal po intake related to poor appetite as evidenced by family report PO intake greater than 50% of meals and supplements - Slow progress with goal. Intakes mostly 5-25%. Continue with same goal Goal: Pt current nutrition is Heart healthy, Ensure HP+ BID (350 kcal, 20 g protein) and nutritional ice cream BID (270 kcal, 9 g protein). Nutrition recommendation: No new recommendations. Continue nutrition care plan and orders. Agree with orders Last recorded weight is 88.9 kg. Bowel Motility: +1 BM 01/20 Labs Reviewed: Hgb 7.9, Hct 25.4, K+ 2.9, Cre 0.62, Glu 146, PO4 1.8 Meds Noted: Senna, simethicone, dulcolax, reglan, protonix Skin: No pressure Additional Notes: Intakes remain poor. Abdominal pain is improved somewhat. Pt with dementia, family does not want aggressive interventions. Will continue current nutrition care plan and orders. Monitor intake, wt, labs. Follow up in 5 days.
[2025-01-20] MEDS: CALCIUM/VITAMIN D 500 MG/5 MCG (200 I.U.) TABLET PO (11:05)
[2025-01-20] MEDS: POTASSIUM CHLORIDE 20 MEQ PACKET (FOR LIQUID) 40 MEQ PO (11:07)
[2025-01-20] MEDS: MORPHINE SULFATE (*CRX) 4 MG/ML INJ IV PUSH ×2 (11:19→19:20)
--- NOTE | 2025-01-20 13:42 | P.PNIM_ITS ---
Progress Note: A&P Assessment and Plan (1) Pulmonary embolism: Qualifiers: Acute cor pulmonale presence: with acute cor pulmonale Chronicity: acute Pulmonary embolism type: unspecified Qualified Code(s): I26.09 - Other pulmonary embolism with acute cor pulmonale Code(s): I26.99 - Other pulmonary embolism without acute cor pulmonale Status: Acute Assessment and Plan: ACTIVE, improved, monitoring Right heart strain on CT 01/15. Recent diagnosis of DVT at [facility], was on Eliquis. Not requiring oxygen. Tachycardia resolved. DNR/DNI. Spoke with his daughter and his at the bedside and the patient 01/18 TTE no evidence of heart strain -On a heparin drip from 01/15-01/19 for concern for bleeding. Hgb has ranged from 7.1-8.1 the last couple days, 7.9 this morning. Acute drop on 01/14 (7.9>5.4 and received 2 unit PRBC's) No report of acute blood loss or melena. -Changed to Lovenox 01/19 Spoke with family members daily ( and daughter) and aggressive interventions not goals of care. Declined option for transfer to higher acuity, but that is appropriate because goals of care primarily palliative with limited interventions. Giving blood for Hgb <7 --Readdress palliative care or hospice if new hemodynamic changes (2) Abdominal abscess: Status: Acute Assessment and Plan: ACTIVE, acute Recent bladder rupture, treated at [place]. CT abd/pelvis at OSH 01/08 showed evolving sequelae of extraperitoneal bladder rupture within an capsulated mixed gas-fluid collection in the space Retzius and fluid component of which is decreased in size compared to prior examination in continuity with the anterior urinary bladder wall defect fluid directing subjacent to the rectus abdominus musculature no new organized or drainable fluid collection to partially imaged subsegmental bilateral pulmonary emboli as previously seen on the prior CT from 12/27 had been treated with Zosyn, Flagyl and Vanc, then cefepime and Vanc. Was seen by ID at OSH. DC'd cefepime and vanc & started linezolid on 01/03 and completed 4 weeks of treatment of MRSA bacteremia -Spoke with family and not pursuing surgical options given comorbidities -Suspect suprapubic pain 2/2 abscess and suspect generalized pain related to abdominal distention so started simethicone and bentyl prn --01/15 Started empiric Cefepime, Flagyl. Changed zyvox to doxycycline for thrombocytopenia. Repeat CT CAP in about a week (01/22) to monitor abscess on current antibiotics before deciding end date. Consider a 3 week course and outpatient ID follow up at the [facility] ID clinic if improving [phone] --Pain control: Tylenol, [place], Dilaudid prn. Ideally would limit opiates for gastric distention/bloating but will continue for abdominal abscess/recent bladder perforation --Follow daily CBC. Weekly CRP & ESR --Do not remove Nuñez except with urology consultation. No acute indication for urology consultation because no plan for interventions at this point CT CAP 01/15 1. Multiple abscesses seen anterior to the urinary bladder. 2. Thickened wall of the gallbladder suggestive of cystitis. 3. Free fluid seen in the pelvis and paracolic gutters. 4. Left hydronephrotic changes with no definite stones. 5. Constipation. 6. Bilateral pleural effusion with adjacent atelectasis. 7. Large left renal cyst. 8. Polycystic pancreas. 9. Bilateral fat containing inguinal hernias. (3) Abdominal pain: Qualifiers: Abdominal location: generalized Qualified Code(s): R10.84 - Generalized abdominal pain Code(s): R10.9 - Unspecified abdominal pain Status: Acute Assessment and Plan: Overall improved but more abdominal pain intermittently. Severe pain this AM, improved after a BM but still with suprapubic pain. Generalized discomfort with hyperactive bowel sounds and cramping Abdominal hyperactive. Had a BM. Not eating well. --Tylenol, Vicodin,add Morphine 2-4mg q4 prn since not taking PO well --Schedule simethicone and bentyl prn for abdominal cramping --C. Diff ordered but not collected L (4) Acute on chronic anemia: Code(s): D64.9 - Anemia, unspecified Status: Acute Assessment and Plan: ACTIVE, improved, monitoring Acute, Blood count trending down on heparin drip, s/p 2 units of PRBC's 01/14. Concern for acute GI bleeding but never had melena. Not planning intervention per discussion with family. No plan for scope. No report of hematoma on CT, but was not a CT angio --Follow blood count and transfuse as able for Hgb <7 --Blood count has been stable for several days --No report of melena and stool normal brown on exam 01/19 (5) MRSA bacteremia: Code(s): R78.81 - Bacteremia; B95.62 - Methicillin resistant Staphylococcus aureus infection as the cause of diseases classified elsewhere Status: Acute Assessment and Plan: Recently treated for MRSA bacteremia, completed 01/13. TTE 01/03 no vegetations. Also treated for sacral pyoderma gangrenosum. Was seen by dermatology and recently completed a steroid taper --Follow up Blood cultures x2 01/15 No growth to date --Follow WBC, ESR, CRP, temps --Currently taking Cefepime IV, Flagyl and Doxy. (6) Sacral decubitus ulcer: Code(s): L89.159 - Pressure ulcer of sacral region, unspecified stage Status: Acute Assessment and Plan: -Wound care following. Recently treated with a course of steroids at the outside hospital per Dermatology recs for pyoderma gangrenosum -treating topical steroid spray and avoiding systemic steroids given infection (7) Thrombocytopenia: Code(s): D69.6 - Thrombocytopenia, unspecified Status: Acute Assessment and Plan: ACTIVE, stable, monitoring -Plt count 81-117 during admission. Up to 100. Recently on 4 weeks of linezolid which can cause pancytopenia, so changed to an alternate medication. Was stable on heparin drip. -patient now on lovenox -monitor CBC (8) Severe malnutrition: Code(s): E43 - Unspecified severe protein-calorie malnutrition Status: Acute Assessment and Plan: Supplements per dietitian (9) Electrolyte abnormality: Code(s): E87.8 - Other disorders of electrolyte and fluid balance, not elsewhere classified Status: Acute Assessment and Plan: ACTIVE 01/15 Potassium 3.1, Phos 1.9. 20meq Kcl, 15mmol kphos, and 250 kphos tabs BID x2 doses, 40meq IV 7/10 Potassium 3.1, 40meq x2. Mag 1.8 s/p 2G IV mag today. Phos 1.8, 20mmol 01/17-01/18 Potassium 3.2 40meq IV repeat 3.6 20meq IV today 01/19 Potassium 3.2. Schedule potassium 10 TID x2 days --Follow potassium, mag, and phos --Has a poor appetite, eating bites --DC'd tele since no CPR (10) Type 2 diabetes mellitus with hyperglycemia: Qualifiers: Diabetes mellitus visual aid expert insulin use: without visual aid expert use Qualified Code(s): E11.65 - Type 2 diabetes mellitus with hyperglycemia Code(s): E11.65 - Type 2 diabetes mellitus with hyperglycemia Status: Chronic Assessment and Plan: MONITORING Blood sugars 124-200. Intermittently 200's. --SSI prn (11) Constipation: Code(s): K59.00 - Constipation, unspecified Status: Acute Assessment and Plan: RESOLVED Personally reviewed CT and constipation visible. Had multiple BM's 01/16 --Continue miralax daily, bisacodyl suppository hs if no BM in 48 hours. (12) Lactic acidosis: Code(s): E87.20 - Acidosis, unspecified Status: Acute Assessment and Plan: RESOLVED significant lactic acidosis likely due to a combination of factors id metformin use,, decreased perfusion and or some hepatic dysfunction. The patient did have lactic acidosis during his last hospitalization that did not completely normalize. Lactic acid is definitely higher than prior values but this is in the setting of acute PE. Metformin is on hold. Patient's lactic acid did improve after 1 L fluid bolus. (13) Goals of care, counseling/discussion: Code(s): Z71.89 - Other specified counseling Status: Acute Assessment and Plan: ACTIVE DNR/DNI with labs and medications. Spoke with patient, , and daughter at bedside and not planning to transfer to outside hospital. Blood count dropped from 7.9 to 5.5>5.4 01/14 and transfused 2 units. Discussed option for GI consult for scope and declined interventions. Also no plan for invasive lines, reviewed option for central line and vasopressors, but would likely be minimal benefit since underlying cause of hypotension would be blood clot or bleeding which have limited options for intervention. Discussed that drop in blood count is complicated since holding drip and blood clots are causing right strain, could lead to hemodynamic changes and medical instability. Planning transfusion. Family aware of potential for deterioration. Not interested in hospice at this point. Plan Next of Kin, Vianney Moralez [phone] MEDICAL DECISION MAKING NARRATIVE -Patient seen and examined at bedside -Collaborated with patient's nurse and family at the bedside in detail and addressed all concerns -Labs, electrolytes, radiology, investigations and test results reviewed -ED/Consult/Nursing/Ancilliary notes on the chart reviewed and appreciated Patient has been admitted as observation status Subjective Date/time seen: 01/20/25 13:42 Interval history: Patient complains of abdominal pain today. At the time my evaluation he was receiving morphine for his symptoms. is in the room at bedside at the time of my evaluation. States that patient has not been up out of bed and almost 1 month. Explain her the concern for at looks on recovery. Will order PT and OT to get patient up to chair. I believe patient's is on the border between hospice and doing rehab again. Will do PT and OT to see how with the evaluation goes. According the nurse patient is max assist. If PT and OT cannot work with the patient the may lean more towards hospice. Exam Narrative: GENERAL: Comfortable, no acute distress HENMT: moist mucous membranes RESPIRATORY: clear to auscultation, no increased respiratory effort CARDIO: Regular rate and rhythm GI: soft, bowel sounds present, tenderness to palpation in all 4 quadrants SKIN/EXTREMITIES: no rashes, no edema, no redness or tenderness, muscle wasting NEURO: answers questions appropriately, A&O x4 Objective Data Vital Signs Vital Signs: Vital Signs - 24 hr 01/19/25 14:00 01/19/25 21:46 01/19/25 21:52 Temperature 97.7 F 99.3 F Pulse Rate 96 110 H 73 Respiratory Rate 16 20 20 Blood Pressure 113/67 115/51 L Pulse Oximetry 99 94 95 Oxygen Delivery Room Air Fraction of Inspired Oxygen 01/20/25 05:56 Temperature 97.3 F L Pulse Rate 72 Respiratory Rate 16 Blood Pressure 123/61 Pulse Oximetry 99 Oxygen Delivery Fraction of Inspired Oxygen Intake/Output Intake/Output: Intake & Output 01/17/25 01/18/25 01/19/25 01/20/25 23:59 23:59 23:59 23:59 Intake Total 875 2009.0 710 250 Output Total 5004 855 6031 925 Balance -225 1084.0 -815 -675 Meds/Results Medications: Active Medications Generic Name Dose Route Start Last Admin Trade Name Freq PRN Reason Stop Dose Admin Acetaminophen 650 mg 01/12/25 21:07 01/18/25 12:02 Acetaminophen 325 Mg Tablet PO 650 mg Q6H PRN Administration pain 1-3 or fever Hydrocodone Bitart/Acetaminophen 1 tab 01/13/25 09:00 01/20/25 08:49 Hydrocodone/Acetaminophen (*Crx) 5-325 Mg Tablet PO 1 tab Q6H NEHEMIAH Administration Aspirin 81 mg 01/13/25 09:00 01/20/25 08:49 Aspirin 81 Mg Enteric Tablet PO 81 mg DAILY NEHEMIAH Administration Bisacodyl 10 mg 01/17/25 21:00 01/19/25 20:04 Bisacodyl 10 Mg Suppository RECTAL Not Given HS [facility] Calcium Carbonate 500 mg 01/17/25 12:00 01/20/25 11:05 Calcium/Vitamin D 500 Mg/5 Mcg (200 I.U.) Tablet PO 500 mg DAILY@1200 NEHEMIAH Administration Dextrose 12.5 gm 01/13/25 02:29 Dextrose 50% 25 Gm/50 Ml Syringe IV PUSH PRN PRN Hypoglycemia Protocol Dibucaine 1 applic 01/12/25 21:07 01/17/25 21:13 Dibucaine 1% Ointment 30 Gm Tube TOPICAL 1 applic QID PRN Administration Pain of groin ulcer Dicyclomine HCl 20 mg 01/18/25 12:32 01/19/25 09:05 Dicyclomine Hcl 10 Mg Capsule PO 20 mg QID PRN Administration Abdominal Cramping Donepezil HCl 5 mg 01/12/25 21:10 01/19/25 21:36 Donepezil Hcl 5 Mg Tablet PO 5 mg QHS NEHEMIAH Administration Doxazosin Mesylate 2 mg 01/12/25 21:25 01/19/25 21:36 Doxazosin Mesylate 2 Mg Tablet PO 2 mg QHS NEHEMIAH Administration Doxycycline Hyclate 100 mg 01/17/25 09:00 01/20/25 08:49 Doxycycline Hyclate 100 Mg Tablet PO 100 mg Q12HR NEHEMIAH Administration Dutasteride 0.5 mg 01/13/25 09:00 01/20/25 08:53 Dutasteride 0.5 Mg Capsule PO 0.5 mg DAILY NEHEMIAH Administration Enoxaparin Sodium 90 mg 01/19/25 09:00 01/20/25 08:51 Enoxaparin 100 Mg/Ml Syringe SUB-Q 90 mg Q12HR NEHEMIAH Administration Fluticasone Propionate 1 spray 01/15/25 21:00 01/20/25 08:54 Fluticasone Propionate 0.05% Na Spr 16 Gm Btl (*Bkc) XX 1 spray Q12H NEHEMIAH Administration Fluticasone Propionate 1 spray 01/18/25 10:04 Fluticasone Propionate 0.05% Na Spr 16 Gm Btl (*Bkc) NASAL Q12HR PRN allergy symptoms Glucagon 1 mg 01/13/25 02:29 Glucagon For Inj 1 Mg Vial IM PRN PRN Hypoglycemia Protocol Glucose 15 gm 01/13/25 02:29 Glucose Oral Gel 15 Gm Of Glucse In 37.5 Gm Tube PO PRN PRN Hypoglycemia Protocol Dextrose 1,000 mls @ 100 mls/hr 01/13/25 02:29 Dextrose 5% 1,000 Ml IVPB PRN PRN Hypoglycemia Protocol Cefepime HCl 2 gm/ Sodium 50 mls @ 100 mls/hr 01/15/25 22:00 01/20/25 06:27 Chloride IVPB Infused Q8H [facility] Infusion Albumin Human 200 mls @ 60 mls/hr 01/16/25 01:00 01/19/25 01:10 Albutein IVPB 60 mls/hr Q8H NEHEMIAH Administration Insulin Aspart 2 - 5 units 01/13/25 08:00 01/20/25 11:21 Insulin Aspart (*Bkc) 100 Units/Ml SUB-Q Not Given TIDWM [facility] Protocol Levothyroxine Sodium 75 mcg 01/13/25 06:30 01/20/25 05:34 Levothyroxine Sodium 75 Mcg Tablet PO 75 mcg DAILY@0630 [facility] Administration Metoclopramide HCl 5 mg 01/17/25 16:30 01/20/25 11:07 Metoclopramide Hcl Inj 10 Mg/2 Ml Vial IV PUSH 5 mg TIDAC [facility] Administration Metoprolol Succinate 25 mg 01/13/25 09:00 01/20/25 08:49 Metoprolol Succinate Ext Rel 25 Mg Tabcr PO 25 mg DAILY [facility] Administration Metronidazole 500 mg 01/20/25 22:00 Metronidazole 500 Mg Tablet PO Q8HR [facility] Miconazole Nitrate 1 applic 01/13/25 09:00 01/20/25 08:55 Miconazole Nitrate 2% Cream 30 Gm Tube TOPICAL 1 applic Q12HR [facility] Administration Morphine Sulfate 4 mg 01/15/25 18:57 01/20/25 11:19 Morphine Sulfate (*Crx) 4 Mg/Ml Inj IV PUSH 4 mg Q2H PRN Administration Pain Rated 9-10 Morphine Sulfate 2 mg 01/15/25 18:57 01/20/25 04:20 Morphine Sulfate (*Crx) 2 Mg/Ml Inj IV PUSH 2 mg Q2H PRN Administration Pain Rated 7-8 Pantoprazole Sodium 40 mg 01/17/25 21:00 01/20/25 08:49 Pantoprazole 40 Mg Tablet PO 40 mg Q12HR NEHEMIAH Administration Perflutren Lipid Microsphere 0 ml 01/18/25 08:15 Perflutren Lipid Microspheres 1.5 Ml Vial Diluted To 10 Ml Total Volume IV PUSH 01/21/25 08:15 ONCE PRN adequate visualization Protocol Potassium Chloride 10 meq 01/19/25 08:00 01/20/25 11:05 Potassium Chloride 10 Meq Er Tablet PO 01/21/25 07:59 10 meq TIDWM NEHEMIAH Administration Senna/Docusate Sodium 2 tab 01/13/25 09:00 01/20/25 08:48 Senna/Docusate Sodium Tablet PO 2 tab Q12HR NEHEMIAH Administration Simethicone 125 mg 01/18/25 16:30 01/20/25 11:05 Simethicone 125 Mg Chew Tab PO 125 mg ACHS NEHEMIAH Administration Radiology Results: ITS Impressions Chest CTA 01/12/25 16:59 IMPRESSION: Multiple pulmonary emboli, large clot burden, and evidence of right heart strain. Trace right and small left pleural effusions. 4 mm right upper lobe pulmonary nodule, consider an optional follow-up low-dose noncontrast CT of the chest in one year if the patient is at high risk. Gallbladder hydrops, likely secondary to fasting the absence of right upper quadrant pain or biliary labs abnormalities. Innumerable pancreatic cysts, which may represent the sequela of chronic pancre atitis, or less likely the uncommon diagnosis of isolated polycystic pancreatic disease. Correlate for pancreatic enzyme abnormalities and any symptoms of vague abdominal pain. Consider nonemergent MRI of the pancreas if there are abdominal symptoms. Results reported telephonically to Dr. Haque by Dr. Barry at 5:19 PM on 01/12/2025. Abdomen/Pelvis CT 01/15/25 19:18 IMPRESSION: 1. Multiple abscesses seen anterior to the urinary bladder. 2. Thickened wall of the gallbladder suggestive of cystitis. 3. Free fluid seen in the pelvis and paracolic gutters. 4. Left hydronephrotic changes with no definite stones. 5. Constipation. 6. Bilateral pleural effusion with adjacent atelectasis. 7. Large left renal cyst. 8. Polycystic pancreas. 9. Bilateral fat containing inguinal hernias. Labs Labs: Laboratory Results - last 24 hr 01/19/25 01/19/25 01/19/25 16:29 21:02 21:35 WBC 5.3 RBC 2.69 L Hgb 7.8 L Hct 24.8 L MCV 92.2 MCH 29.0 MCHC 31.5 L RDW 19.3 H Plt Count 103 L MPV 9.7 Immature Gran % (Auto) 1.1 H Neut % (Auto) 72.9 Lymph % (Auto) 18.8 [place] % (Auto) 5.9 Eos % (Auto) 0.9 Baso % (Auto) 0.4 Lymph # (Auto) 0.99 [place] # (Auto) 0.3 Eos # (Auto) 0.1 Baso # (Auto) 0.0 Abs Immat Gran (auto) 0.06 H Absolute Neuts (auto) 3.8 Absolute Nucleated RBC 0.000 Nucleated RBC % 0.0 APTT 51.1 H Sodium Potassium Chloride Carbon Dioxide Anion Gap BUN Creatinine Estim Creat Clear Calc Estimated GFR Glucose POC Capillary Glucose 149 H 138 H Calcium 01/20/25 01/20/25 01/20/25 07:27 07:29 07:56 WBC 5.3 RBC 2.74 L Hgb 7.9 L Hct 25.4 L MCV 92.7 MCH 28.8 MCHC 31.1 L RDW 19.6 H Plt Count 122 L MPV 10.1 Immature Gran % (Auto) Neut % (Auto) Lymph % (Auto) [place] % (Auto) Eos % (Auto) Baso % (Auto) Lymph # (Auto) [place] # (Auto) Eos # (Auto) Baso # (Auto) Abs Immat Gran (auto) Absolute Neuts (auto) Absolute Nucleated RBC Nucleated RBC % APTT Sodium 144 Potassium 2.9 L Chloride 112 H Carbon Dioxide 17 L Anion Gap 15 H BUN 14 Creatinine 0.62 L Estim Creat Clear Calc 87 Estimated GFR > 60 Glucose 146 H POC Capillary Glucose 159 H Calcium 9.7 01/20/25 11:19 WBC RBC Hgb Hct MCV MCH MCHC RDW Plt Count MPV Immature Gran % (Auto) Neut % (Auto) Lymph % (Auto) [place] % (Auto) Eos % (Auto) Baso % (Auto) Lymph # (Auto) [place] # (Auto) Eos # (Auto) Baso # (Auto) Abs Immat Gran (auto) Absolute Neuts (auto) Absolute Nucleated RBC Nucleated RBC % APTT Sodium Potassium Chloride Carbon Dioxide Anion Gap BUN Creatinine Estim Creat Clear Calc Estimated GFR Glucose POC Capillary Glucose 156 H Calcium
[2025-01-20 14:00] VITALS: BP 122/66; PULSE 100; RESP 14; TEMP 36.7; O2SAT 100
[2025-01-20 20:00] VITALS: PULSE 73; RESP 18; O2SAT 98
[2025-01-20] MEDS: DOXAZOSIN MESYLATE 2 MG TABLET PO (20:47)
[2025-01-20] MEDS: DONEPEZIL HCL 5 MG TABLET PO (20:48)
[2025-01-20] MEDS: BISACODYL 10 MG SUPPOSITORY RECTAL (20:52)
[2025-01-20 21:33] VITALS: BP 111/60; PULSE 73; RESP 18; TEMP 36.6; O2SAT 98
[2025-01-21] MEDS: CEFEPIME 2 GM in SODIUM CHLORIDE 0.9% IV 50 ML 100 ML IVPB ×3 (05:13→21:22)
[2025-01-21] MEDS: SIMETHICONE 125 MG CHEW TAB PO ×4 (05:13→21:18)
[2025-01-21] MEDS: LEVOTHYROXINE SODIUM 75 MCG TABLET PO (05:14)
[2025-01-21] MEDS: METOCLOPRAMIDE HCL INJ 10 MG/2 ML VIAL 5 MG IV PUSH ×3 (05:18→16:17)
[2025-01-21 06:00] VITALS: BP 113/57; PULSE 73; RESP 20; TEMP 36.6; O2SAT 100
[2025-01-21 06:09] LABS: Hematocrit 28.4 % (42.0-52.0); Hemoglobin 8.8 g/dL (14.0-18.0); Immature Granulocyte Percent A 1.7 % (0-0.5); Lymphocytes Absolute Auto 1.05 K/mm3 (0.9-3.2); Mean Corpuscular HGB Conc 31.0 g/dl (32-36); Mean Corpuscular Hemoglobin 29.0 pg (26-34); Mean Corpuscular Volume 93.7 fl (80-100); Nucleated Red Blood Cells Absolute Auto 0.000 K/mm3 (0.0-0.012); Nucleated Red Blood Cells Perc 0.0 % (0.0-0.2); Platelet Count Result 138 k/mm3 (150-375); Red Blood Count 3.03 M/mm3 (4.6-6.20); White Blood Count 6.3 K/mm3 (4.5-10.0)
[2025-01-21 06:43] LABS: Anion Gap 12 mmol/L (4-12); Blood Urea Nitrogen 19 mg/dL (9-20); Calcium 9.9 mg/dL (8.4-10.2); Carbon Dioxide 20 mmol/L (22-30); Chloride 112 mmol/L (98-107); Estimated CRCL calculation 77 ml/min; Estimated Glomerular Filt Rate > 60; Glucose 143 mg/dL (65-110); Potassium 3.3 mmol/L (3.4-5.0); Sodium 144 mmol/L (137-145)
[2025-01-21 08:45] VITALS: PULSE 73
[2025-01-21] MEDS: HYDROcodone/acetaminophen (*CRX) 5-325 MG TABLET 1 TAB PO ×3 (08:45→21:18)
[2025-01-21] MEDS: METOPROLOL SUCCINATE EXT REL 25 MG TABCR PO (08:45)
[2025-01-21] MEDS: ASPIRIN 81 MG ENTERIC TABLET PO (08:45)
[2025-01-21] MEDS: DOXYCYCLINE HYCLATE 100 MG TABLET PO ×2 (08:45→21:19)
[2025-01-21] MEDS: DUTASTERIDE 0.5 MG CAPSULE PO (08:46)
[2025-01-21] MEDS: ENOXAPARIN 100 MG/ML SYRINGE 90 MG SUB-Q ×2 (08:46→21:22)
[2025-01-21] MEDS: FLUTICASONE PROPIONATE 0.05% NA SPR 16 GM BTL (*BKC) 1 SPRAY XX ×2 (08:47→21:23)
[2025-01-21] MEDS: MICONAZOLE NITRATE 2% CREAM 30 GM TUBE 1 APPLIC TOPICAL ×2 (08:47→21:23)
[2025-01-21] MEDS: CALCIUM/VITAMIN D 500 MG/5 MCG (200 I.U.) TABLET PO (11:33)
[2025-01-21] MEDS: MORPHINE SULFATE (*CRX) 2 MG/ML INJ IV PUSH (11:34)
[2025-01-21] MEDS: PANTOPRAZOLE 40 MG TABLET PO ×2 (13:32→21:19)
[2025-01-21 14:00] VITALS: BP 127/80; PULSE 72; RESP 16; TEMP 36.4; O2SAT 96
--- NOTE | 2025-01-21 14:54 | PCOTNOTE ---
Attempted to see pt. for occupational therapy evaluation. Pt. and daughter present and educated on goals of therapy. Pt. declines interest in therapy at this time, with family in agreement. Nursing and hospitalist Dr. Correa updated. Canceling orders.
--- NOTE | 2025-01-21 16:23 | P.PNIM_ITS ---
Progress Note: A&P Assessment and Plan (1) Pulmonary embolism: Qualifiers: Acute cor pulmonale presence: with acute cor pulmonale Chronicity: acute Pulmonary embolism type: unspecified Qualified Code(s): I26.09 - Other pulmonary embolism with acute cor pulmonale Code(s): I26.99 - Other pulmonary embolism without acute cor pulmonale Status: Acute Assessment and Plan: ACTIVE, improved, monitoring Right heart strain on CT 01/15. Recent diagnosis of DVT at [facility], was on Eliquis. Not requiring oxygen. Tachycardia resolved. DNR/DNI. Spoke with his daughter and his at the bedside and the patient 01/18 TTE no evidence of heart strain -On a heparin drip from 01/15-01/19 for concern for bleeding. Hgb has ranged from 7.1-8.1 the last couple days Acute drop on 01/14 (7.9>5.4 and received 2 unit PRBC's) No report of acute blood loss or melena. -Changed to Lovenox 01/19 Hbhas been stable Spoke with family members daily ( and daughter) and aggressive interventions not goals of care. Declined option for transfer to higher acuity, but that is appropriate because goals of care primarily palliative with limited interventions. Giving blood for Hgb <7 --Readdress palliative care or hospice if new hemodynamic changes (2) Abdominal abscess: Status: Acute Assessment and Plan: ACTIVE, acute Recent bladder rupture, treated at [facility]. CT abd/pelvis at OSH 01/08 showed evolving sequelae of extraperitoneal bladder rupture within an capsulated mixed gas-fluid collection in the space Retzius and fluid component of which is decreased in size compared to prior examination in continuity with the anterior urinary bladder wall defect fluid directing subjacent to the rectus abdominus musculature no new organized or drainable fluid collection to partially imaged subsegmental bilateral pulmonary emboli as previously seen on the prior CT from 12/27 had been treated with Zosyn, Flagyl and Vanc, then cefepime and Vanc. Was seen by ID at OSH. DC'd cefepime and vanc & started linezolid on 01/03 and completed 4 weeks of treatment of MRSA bacteremia -Spoke with family and not pursuing surgical options given comorbidities -Suspect suprapubic pain 2/2 abscess and suspect generalized pain related to abdominal distention so started simethicone and bentyl prn --01/15 Started empiric Cefepime, Flagyl. Changed zyvox to doxycycline for thrombocytopenia. Repeat CT CAP in about a week (01/22) to monitor abscess on current antibiotics before deciding end date. Consider a 3 week course and outpatient ID follow up at the [facility] ID clinic if improving [phone] --Pain control: Tylenol, [place], Dilaudid prn. Ideally would limit opiates for gastric distention/bloating but will continue for abdominal abscess/recent bladder perforation --Follow daily CBC. Weekly CRP & ESR --Do not remove Nuñez except with urology consultation. No acute indication for urology consultation because no plan for interventions at this point CT CAP 01/15 1. Multiple abscesses seen anterior to the urinary bladder. 2. Thickened wall of the gallbladder suggestive of cystitis. 3. Free fluid seen in the pelvis and paracolic gutters. 4. Left hydronephrotic changes with no definite stones. 5. Constipation. 6. Bilateral pleural effusion with adjacent atelectasis. 7. Large left renal cyst. 8. Polycystic pancreas. 9. Bilateral fat containing inguinal hernias. (3) Abdominal pain: Qualifiers: Abdominal location: generalized Qualified Code(s): R10.84 - Generalized abdominal pain Code(s): R10.9 - Unspecified abdominal pain Status: Acute Assessment and Plan: Overall improved but more abdominal pain intermittently. Abdominal hyperactive. Had a BM. Not eating well. --Tylenol, Vicodin,add Morphine 2-4mg q4 prn since not taking PO well --Schedule simethicone and bentyl prn for abdominal cramping (4) Acute on chronic anemia: Code(s): D64.9 - Anemia, unspecified Status: Acute Assessment and Plan: ACTIVE, improved, monitoring Acute, Blood count was trending down on heparin drip, s/p 2 units of PRBC's 01/14. Concern for acute GI bleeding but never had melena. Not planning intervention per discussion with family. No plan for scope. No report of hematoma on CT, but was not a CT angio --Follow blood count and transfuse as able for Hgb <7 --Blood count has been stable for several days --No report of melena (5) MRSA bacteremia: Code(s): R78.81 - Bacteremia; B95.62 - Methicillin resistant Staphylococcus aureus infection as the cause of diseases classified elsewhere Status: Acute Assessment and Plan: Recently treated for MRSA bacteremia, completed 01/13. TTE 01/03 no vegetations. Also treated for sacral pyoderma gangrenosum. Was seen by dermatology and rec ently completed a steroid taper --Follow up Blood cultures x2 01/15 No growth to date --Follow WBC, ESR, CRP, temps --Currently taking Cefepime IV, Flagyl and Doxy. (6) Sacral decubitus ulcer: Code(s): L89.159 - Pressure ulcer of sacral region, unspecified stage Status: Acute Assessment and Plan: -Wound care following. Recently treated with a course of steroids at the outside hospital per Dermatology recs for pyoderma gangrenosum -treating topical steroid spray and avoiding systemic steroids given infection (7) Thrombocytopenia: Code(s): D69.6 - Thrombocytopenia, unspecified Status: Acute Assessment and Plan: ACTIVE, stable, monitoring -Plt count 81-117 during admission. Up to 100. Recently on 4 weeks of linezolid which can cause pancytopenia, so changed to an alternate medication. Was stable on heparin drip. -patient now on lovenox -monitor CBC (8) Severe malnutrition: Code(s): E43 - Unspecified severe protein-calorie malnutrition Status: Acute Assessment and Plan: Supplements per dietitian (9) Electrolyte abnormality: Code(s): E87.8 - Other disorders of electrolyte and fluid balance, not elsewhere classified Status: Acute Assessment and Plan: ACTIVE 01/15 Potassium 3.1, Phos 1.9. 20meq Kcl, 15mmol kphos, and 250 kphos tabs BID x2 doses, 40meq IV 01/16 Potassium 3.1, 40meq x2. Mag 1.8 s/p 2G IV mag today. Phos 1.8, 20mmol 01/17-01/18 Potassium 3.2 40meq IV repeat 3.6 20meq IV today 01/19 Potassium 3.2. Schedule potassium 10 TID x2 days --Follow potassium, mag, and phos --Has a poor appetite, eating bites --DC'd tele since no CPR (10) Type 2 diabetes mellitus with hyperglycemia: Qualifiers: Diabetes mellitus long filler cigar roller machine insulin use: without detention use Qualified Code(s): E11.65 - Type 2 diabetes mellitus with hyperglycemia Code(s): E11.65 - Type 2 diabetes mellitus with hyperglycemia Status: Chronic Assessment and Plan: MONITORING Blood sugars 124-200. Intermittently 200's. --SSI prn (11) Constipation: Code(s): K59.00 - Constipation, unspecified Status: Acute Assessment and Plan: RESOLVED Personally reviewed CT and constipation visible. Had multiple BM's 01/16 --Continue miralax daily, bisacodyl suppository hs if no BM in 48 hours. (12) Lactic acidosis: Code(s): E87.20 - Acidosis, unspecified Status: Acute Assessment and Plan: RESOLVED significant lactic acidosis likely due to a combination of factors id metformin use,, decreased perfusion and or some hepatic dysfunction. The patient did have lactic acidosis during his last hospitalization that did not completely normalize. Lactic acid is definitely higher than prior values but this is in the setting of acute PE. Metformin is on hold. Patient's lactic acid did improve after 1 L fluid bolus. (13) Goals of care, counseling/discussion: Code(s): Z71.89 - Other specified counseling Status: Acute Assessment and Plan: ACTIVE DNR/DNI Plan Next of Kin, Vianney Moralez [phone] MEDICAL DECISION MAKING NARRATIVE -Patient seen and examined at bedside -Collaborated with patient's nurse and family at the bedside in detail and addressed all concerns -Labs, electrolytes, radiology, investigations and test results reviewed -ED/Consult/Nursing/Ancilliary notes on the chart reviewed and appreciated Patient has been admitted as observation status Subjective Date/time seen: 01/21/25 16:23 Interval history: Patient was seen and examined at bedside. he is feeling fine. has low appetite. did not work wit PT/OT today. Plan to repeat CT abd tomorrow. Review of Systems Review of Systems: Review of systems unobtainable due to patient's dementia Exam Narrative: GENERAL: Comfortable, no acute distress HENMT: moist mucous membranes RESPIRATORY: clear to auscultation, no increased respiratory effort CARDIO: Regular rate and rhythm GI: soft, bowel sounds present, tenderness to palpation in all 4 quadrants SKIN/EXTREMITIES: no rashes, no edema, no redness or tenderness, muscle wasting NEURO: answers questions appropriately, A&O x4 Const: Other: Acutely ill-appearing, debilitated, deconditioned HENMT: Other: Mucous membranes are dry, no oral pharyngeal erythema, crowded posterior oropharynx Eyes: Other: Marked conjunctival pallor, no scleral icterus, bilateral lens implants noted Neck: Other: No JVD, no lymphadenopathy Resp: Other: shallow respirations, no increased work of breathing Cardio: Other: Irregularly irregular, rate controlled, 2+ bilateral radial and pedal pulses GI: Other: Soft, slightly distended, nontender, hypoactive bowel sounds : Other: Nuñez catheter in place with clear yellow urine, scrotal edema Skin: Other: Generalized pallor, non jaundice, he numerous scattered superficial hematomas Neuro: Other: Patient is alert oriented to person and the fact that he is in the hospital, no localizing neurologic deficits noted but exam limited Extrem: Other: Marked pitting edema of the left lower extremity up through the knee and , edema of the right hand wrist and forearm, edema of the left upper extremity, Psych: Other: Pleasantly confused, cooperative, poor judgment and insight Objective Data Vital Signs Vital Signs: Vital Signs - 24 hr 01/20/25 20:00 01/20/25 21:33 01/21/25 06:00 Temperature 97.9 F 97.8 F Pulse Rate 73 73 73 Respiratory Rate 18 18 20 Blood Pressure 111/60 113/57 L Pulse Oximetry 98 98 100 Oxygen Delivery Room Air Fraction of Inspired Oxygen 21 01/21/25 08:45 01/21/25 08:45 Temperature Pulse Rate 73 Respiratory Rate Blood Pressure Pulse Oximetry Oxygen Delivery Room Air Fraction of Inspired Oxygen Intake/Output Intake/Output: Intake & Output 01/18/25 01/19/25 01/20/25 01/21/25 23:59 23:59 23:59 23:59 Intake Total 2009.0 710 450 50 Output Total 925 1525 1475 825 Balance 1084.0 -815 -1025 -775 Meds/Results Medications: Active Medications Generic Name Dose Route Start Last Admin Trade Name Freq PRN Reason Stop Dose Admin Acetaminophen 650 mg 01/12/25 21:07 01/18/25 12:02 Acetaminophen 325 Mg Tablet PO 650 mg Q6H PRN Administration pain 1-3 or fever Hydrocodone Bitart/Acetaminophen 1 tab 01/13/25 09:00 01/21/25 14:52 Hydrocodone/Acetaminophen (*Crx) 5-325 Mg Tablet PO 1 tab Q6H NEHEMIAH Administration Aspirin 81 mg 01/13/25 09:00 01/21/25 08:45 Aspirin 81 Mg Enteric Tablet PO 81 mg DAILY NEHEMIAH Administration Bisacodyl 10 mg 01/17/25 21:00 01/20/25 20:52 Bisacodyl 10 Mg Suppository RECTAL 10 mg HS NEHEMIAH Administration Calcium Carbonate 500 mg 01/17/25 12:00 01/21/25 11:33 Calcium/Vitamin D 500 Mg/5 Mcg (200 I.U.) Tablet PO 500 mg DAILY@1200 NEHEMIAH Administration Dextrose 12.5 gm 01/13/25 02:29 Dextrose 50% 25 Gm/50 Ml Syringe IV PUSH PRN PRN Hypoglycemia Protocol Dibucaine 1 applic 01/12/25 21:07 01/17/25 21:13 Dibucaine 1% Ointment 30 Gm Tube TOPICAL 1 applic QID PRN Administration Pain of groin ulcer Dicyclomine HCl 20 mg 01/18/25 12:32 01/19/25 09:05 Dicyclomine Hcl 10 Mg Capsule PO 20 mg QID PRN Administration Abdominal Cramping Donepezil HCl 5 mg 01/12/25 21:10 01/20/25 20:48 Donepezil Hcl 5 Mg Tablet PO 5 mg QHS NEHEMIAH Administration Doxazosin Mesylate 2 mg 01/12/25 21:25 01/20/25 20:47 Doxazosin Mesylate 2 Mg Tablet PO 2 mg QHS NEHEMIAH Administration Doxycycline Hyclate 100 mg 01/17/25 09:00 01/21/25 08:45 Doxycycline Hyclate 100 Mg Tablet PO 100 mg Q12HR NEHEMIAH Administration Dutasteride 0.5 mg 01/13/25 09:00 01/21/25 08:46 Dutasteride 0.5 Mg Capsule PO 0.5 mg DAILY NEHEMIAH Administration Enoxaparin Sodium 90 mg 01/19/25 09:00 01/21/25 08:46 Enoxaparin 100 Mg/Ml Syringe SUB-Q 90 mg Q12HR NEHEMIAH Administration Fluticasone Propionate 1 spray 01/15/25 21:00 01/21/25 08:47 Fluticasone Propionate 0.05% Na Spr 16 Gm Btl (*Bkc) XX 1 spray Q12H NEHEMIAH Administration Fluticasone Propionate 1 spray 01/18/25 10:04 Fluticasone Propionate 0.05% Na Spr 16 Gm Btl (*Bkc) NASAL Q12HR PRN allergy symptoms Glucagon 1 mg 01/13/25 02:29 Glucagon For Inj 1 Mg Vial IM PRN PRN Hypoglycemia Protocol Glucose 15 gm 01/13/25 02:29 Glucose Oral Gel 15 Gm Of Glucse In 37.5 Gm Tube PO PRN PRN Hypoglycemia Protocol Dextrose 1,000 mls @ 100 mls/hr 01/13/25 02:29 Dextrose 5% 1,000 Ml IVPB PRN PRN Hypoglycemia Protocol Cefepime HCl 2 gm/ Sodium 50 mls @ 100 mls/hr 01/15/25 22:00 01/21/25 14:53 Chloride IVPB 100 mls/hr Q8H NEHEMIAH Administration Albumin Human 200 mls @ 60 mls/hr 01/16/25 01:00 01/19/25 01:10 Albutein IVPB 60 mls/hr Q8H NEHEMIAH Administration Insulin Aspart 2 - 5 units 01/13/25 08:00 01/21/25 12:07 Insulin Aspart (*Bkc) 100 Units/Ml SUB-Q Not Given TIDWM NEHEMIAH Protocol Levothyroxine Sodium 75 mcg 01/13/25 06:30 01/21/25 05:14 Levothyroxine Sodium 75 Mcg Tablet PO 75 mcg DAILY@0630 NEHEMIAH Administration Metoclopramide HCl 5 mg 01/17/25 16:30 01/21/25 16:17 Metoclopramide Hcl Inj 10 Mg/2 Ml Vial IV PUSH 5 mg TIDAC NEHEMIAH Administration Metoprolol Succinate 25 mg 01/13/25 09:00 01/21/25 08:45 Metoprolol Succinate Ext Rel 25 Mg Tabcr PO 25 mg DAILY NEHEMIAH Administration Metronidazole 500 mg 01/20/25 22:00 01/21/25 14:52 Metronidazole 500 Mg Tablet PO 500 mg Q8HR NEHEMIAH Administration Miconazole Nitrate 1 applic 01/13/25 09:00 01/21/25 08:47 Miconazole Nitrate 2% Cream 30 Gm Tube TOPICAL 1 applic Q12HR NEHEMIAH Administration Morphine Sulfate 4 mg 01/15/25 18:57 01/20/25 19:20 Morphine Sulfate (*Crx) 4 Mg/Ml Inj IV PUSH 4 mg Q2H PRN Administration Pain Rated 9-10 Morphine Sulfate 2 mg 01/15/25 18:57 01/21/25 11:34 Morphine Sulfate (*Crx) 2 Mg/Ml Inj IV PUSH 2 mg Q2H PRN Administration Pain Rated 7-8 Pantoprazole Sodium 40 mg 01/17/25 21:00 01/21/25 13:32 Pantoprazole 40 Mg Tablet PO 40 mg Q12HR NEHEMIAH Administration Senna/Docusate Sodium 2 tab 01/13/25 09:00 01/21/25 08:51 Senna/Docusate Sodium Tablet PO Not Given Q12HR NEHEMIAH Simethicone 125 mg 01/18/25 16:30 01/21/25 16:17 Simethicone 125 Mg Chew Tab PO 125 mg ACHS NEHEMIAH Administration Radiology Results: ITS Impressions Chest CTA 01/12/25 16:59 IMPRESSION: Multiple pulmonary emboli, large clot burden, and evidence of right heart strain. Trace right and small left pleural effusions. 4 mm right upper lobe pulmonary nodule, consider an optional follow-up low-dose noncontrast CT of the chest in one year if the patient is at high risk. Gallbladder hydrops, likely secondary to fasting the absence of right upper quadrant pain or biliary labs abnormalities. Innumerable pancreatic cysts, which may represent the sequela of chronic pancreatitis, or less likely the uncommon diagnosis of isolated polycystic pancreatic disease. Correlate for pancreatic enzyme abnormalities and any symptoms of vague abdominal pain. Consider nonemergent MRI of the pancreas if there are abdominal symptoms. Results reported telephonically to Dr. Haque by Dr. Barry at 5:19 PM on 01/12/2025. Abdomen/Pelvis CT 01/15/25 19:18 IMPRESSION: 1. Multiple abscesses seen anterior to the urinary bladder. 2. Thickened wall of the gallbladder suggestive of cystitis. 3. Free fluid seen in the pelvis and paracolic gutters. 4. Left hydronephrotic changes with no definite stones. 5. Constipation. 6. Bilateral pleural effusion with adjacent atelectasis. 7. Large left renal cyst. 8. Polycystic pancreas. 9. Bilateral fat containing inguinal hernias. Labs Labs: Laboratory Results - last 24 hr 01/20/25 01/20/25 01/21/25 16:36 20:58 05:53 WBC 6.3 RBC 3.03 L Hgb 8.8 L Hct 28.4 L MCV 93.7 MCH 29.0 MCHC 31.0 L RDW 20.6 H Plt Count 138 L MPV 9.9 Immature Gran % (Auto) 1.7 H Neut % (Auto) 73.2 H Lymph % (Auto) 16.7 L Jackson % (Auto) 6.8 Eos % (Auto) 1.0 Baso % (Auto) 0.6 Lymph # (Auto) 1.05 Jackson # (Auto) 0.4 Eos # (Auto) 0.1 Baso # (Auto) 0.0 Abs Immat Gran (auto) 0.11 H Absolute Neuts (auto) 4.6 Absolute Nucleated RBC 0.000 Nucleated RBC % 0.0 Sodium 144 Potassium 3.3 L Chloride 112 H Carbon Dioxide 20 L Anion Gap 12 BUN 19 Creatinine 0.71 Estim Creat Clear Calc 77 Estimated GFR > 60 Glucose 143 H POC Capillary Glucose 153 H 129 H Calcium 9.9 01/21/25 01/21/25 08:09 11:51 WBC RBC Hgb Hct MCV MCH MCHC RDW Plt Count MPV Immature Gran % (Auto) Neut % (Auto) Lymph % (Auto) Jackson % (Auto) Eos % (Auto) Baso % (Auto) Lymph # (Auto) Jackson # (Auto) Eos # (Auto) Baso # (Auto) Abs Immat Gran (auto) Absolute Neuts (auto) Absolute Nucleated RBC Nucleated RBC % Sodium Potassium Chloride Carbon Dioxide Anion Gap BUN Creatinine Estim Creat Clear Calc Estimated GFR Glucose POC Capillary Glucose 152 H 158 H Calcium Quality VTE Prophylaxis VTE prophylaxis: mechanical ordered and pharmacologic ordered
[2025-01-21] MEDS: MORPHINE SULFATE (*CRX) 4 MG/ML INJ IV PUSH (19:44)
[2025-01-21] MEDS: SENNA/DOCUSATE SODIUM TABLET 2 TAB PO (21:18)
[2025-01-21] MEDS: DOXAZOSIN MESYLATE 2 MG TABLET PO (21:18)
[2025-01-21] MEDS: DONEPEZIL HCL 5 MG TABLET PO (21:19)
[2025-01-21] MEDS: BISACODYL 10 MG SUPPOSITORY RECTAL (21:23)
[2025-01-21 21:47] VITALS: BP 102/47; PULSE 103; RESP 20; TEMP 36.7; O2SAT 98
[2025-01-22] MEDS: HYDROcodone/acetaminophen (*CRX) 5-325 MG TABLET 1 TAB PO ×4 (03:30→21:11)
--- NOTE | 2025-01-22 05:20 | PC.NURSE ---
During report of this patient at shift change this nurse was told that the patients had called for pain medication for the patient before shift change had begun. At about 1935 this nurse went and removed pain medication to give to patient. While walking to the patient's room the patient's was coming out of room visibly upset. I introduced myself and let her know I was there with the pain medications. The patient's was very upset and began to tell me how she had tried calling at 1845 for pain medication and that her is in so much pain due to waiting so long for medication. I apologized to them and let her know that I was told in report they had called and I came down as soon as I was done getting report. The patient's told me she had reached out to someone she knew who contacted the printed circuit board reworker of this establishment. I apologized for the wait and let her know that I would make sure to stay on top of giving his pain medications. She explained her frustrations were with the previous shift for not acknowledging him or his pain. I again apologized and let his know how truly sorry I was that his pain was not treated in a timely manor and that I would make sure his pain level was monitored regularly and would be treated as it is needed. Continued to monitor patient and assess patient.
[2025-01-22 06:00] VITALS: BP 118/70; PULSE 101; RESP 18; TEMP 36.4; O2SAT 96
[2025-01-22 06:11] LABS: Hematocrit 28.9 % (42.0-52.0); Hemoglobin 8.9 g/dL (14.0-18.0); Immature Granulocyte Percent A 1.3 % (0-0.5); Lymphocytes Absolute Auto 1.35 K/mm3 (0.9-3.2); Mean Corpuscular HGB Conc 30.8 g/dl (32-36); Mean Corpuscular Hemoglobin 29.4 pg (26-34); Mean Corpuscular Volume 95.4 fl (80-100); Nucleated Red Blood Cells Absolute Auto 0.000 K/mm3 (0.0-0.012); Nucleated Red Blood Cells Perc 0.0 % (0.0-0.2); Platelet Count Result 156 k/mm3 (150-375); Red Blood Count 3.03 M/mm3 (4.6-6.20); White Blood Count 6.3 K/mm3 (4.5-10.0)
[2025-01-22] MEDS: SIMETHICONE 125 MG CHEW TAB PO ×4 (06:21→21:12)
[2025-01-22] MEDS: METOCLOPRAMIDE HCL INJ 10 MG/2 ML VIAL 5 MG IV PUSH ×3 (06:21→17:13)
[2025-01-22] MEDS: CEFEPIME 2 GM in SODIUM CHLORIDE 0.9% IV 50 ML 100 ML IVPB ×3 (06:21→21:29)
[2025-01-22] MEDS: LEVOTHYROXINE SODIUM 75 MCG TABLET PO (06:21)
[2025-01-22 06:31] LABS: Anion Gap 11 mmol/L (4-12); Blood Urea Nitrogen 21 mg/dL (9-20); Calcium 10.1 mg/dL (8.4-10.2); Carbon Dioxide 21 mmol/L (22-30); Chloride 112 mmol/L (98-107); Estimated CRCL calculation 77 ml/min; Estimated Glomerular Filt Rate > 60; Glucose 129 mg/dL (65-110); Potassium 3.0 mmol/L (3.4-5.0); Sodium 144 mmol/L (137-145)
[2025-01-22] MEDS: SENNA/DOCUSATE SODIUM TABLET 2 TAB PO (09:17)
[2025-01-22] MEDS: ASPIRIN 81 MG ENTERIC TABLET PO (09:18)
[2025-01-22 09:19] VITALS: PULSE 99
[2025-01-22] MEDS: METOPROLOL SUCCINATE EXT REL 25 MG TABCR PO (09:19)
[2025-01-22] MEDS: PANTOPRAZOLE 40 MG TABLET PO (09:20)
[2025-01-22] MEDS: DUTASTERIDE 0.5 MG CAPSULE PO (09:20)
[2025-01-22] MEDS: DOXYCYCLINE HYCLATE 100 MG TABLET PO ×2 (09:21→21:11)
[2025-01-22] MEDS: ENOXAPARIN 100 MG/ML SYRINGE 90 MG SUB-Q ×2 (09:23→21:11)
[2025-01-22] MEDS: MICONAZOLE NITRATE 2% CREAM 30 GM TUBE 1 APPLIC TOPICAL ×2 (09:28→21:13)
[2025-01-22] MEDS: FLUTICASONE PROPIONATE 0.05% NA SPR 16 GM BTL (*BKC) 1 SPRAY XX ×2 (09:28→21:13)
[2025-01-22] MEDS: CALCIUM/VITAMIN D 500 MG/5 MCG (200 I.U.) TABLET PO (11:53)
--- NOTE | 2025-01-22 12:41 | P.PNIM_ITS ---
Progress Note: A&P Assessment and Plan (1) Pulmonary embolism: Qualifiers: Acute cor pulmonale presence: with acute cor pulmonale Chronicity: acute Pulmonary embolism type: unspecified Qualified Code(s): I26.09 - Other pulmonary embolism with acute cor pulmonale Code(s): I26.99 - Other pulmonary embolism without acute cor pulmonale Status: Acute Assessment and Plan: ACTIVE, improved, monitoring Right heart strain on CT 01/15. Recent diagnosis of DVT at [facility], was on Eliquis. Not requiring oxygen. Tachycardia resolved. DNR/DNI. Spoke with his daughter and his at the bedside and the patient 01/18 TTE no evidence of heart strain -On a heparin drip from 01/15-01/19 for concern for bleeding. Hgb has ranged from 7.1-8.1 the last couple days Acute drop on 01/14 (7.9>5.4 and received 2 unit PRBC's) No report of acute blood loss or melena. -Changed to Lovenox 01/19 Hb has been stable Spoke with family members daily ( and daughter) and aggressive interventions not goals of care. Declined option for transfer to higher acuity, but that is appropriate because goals of care primarily palliative with limited interventions. Giving blood for Hgb <7 --Readdress palliative care or hospice if new hemodynamic changes (2) Abdominal abscess: Status: Acute Assessment and Plan: ACTIVE, acute Recent bladder rupture, treated at [place]. CT abd/pelvis at OSH 01/08 showed evolving sequelae of extraperitoneal bladder rupture within an capsulated mixed gas-fluid collection in the space Retzius and fluid component of which is decreased in size compared to prior examination in continuity with the anterior urinary bladder wall defect fluid directing subjacent to the rectus abdominus musculature no new organized or drainable fluid collection to partially imaged subsegmental bilateral pulmonary emboli as previously seen on the prior CT from 12/27 had been treated with Zosyn, Flagyl and Vanc, then cefepime and Vanc. Was seen by ID at OSH. DC'd cefepime and vanc & started linezolid on 01/03 and completed 4 weeks of treatment of MRSA bacteremia -Spoke with family and not pursuing surgical options given comorbidities -Suspect suprapubic pain 2/2 abscess and suspect generalized pain related to abdominal distention so started simethicone and bentyl prn --01/15 Started empiric Cefepime, Flagyl. Changed zyvox to doxycycline for thrombocytopenia. Repeat CT CAP in about a week (01/22) to monitor abscess on current antibiotics before deciding end date. Consider a 3 week course and outpatient ID follow up at the [facility] ID clinic if improving [phone] --Pain control: Tylenol, [place], Dilaudid prn. Ideally would limit opiates for gastric distention/bloating but will continue for abdominal abscess/recent bladder perforation --Follow daily CBC. Weekly CRP & ESR --Do not remove Nuñez except with urology consultation. No acute indication for urology consultation because no plan for interventions at this point CT CAP 01/15 1. Multiple abscesses seen anterior to the urinary bladder. 2. Thickened wall of the gallbladder suggestive of cystitis. 3. Free fluid seen in the pelvis and paracolic gutters. 4. Left hydronephrotic changes with no definite stones. 5. Constipation. 6. Bilateral pleural effusion with adjacent atelectasis. 7. Large left renal cyst. 8. Polycystic pancreas. 9. Bilateral fat containing inguinal hernias. (3) Abdominal pain: Qualifiers: Abdominal location: generalized Qualified Code(s): R10.84 - Generalized abdominal pain Code(s): R10.9 - Unspecified abdominal pain Status: Acute Assessment and Plan: Overall improved but more abdominal pain intermittently. Abdominal hyperactive. Had a BM. Not eating well. --Tylenol, Vicodin,add Morphine 2-4mg q4 prn since not taking PO well --Schedule simethicone and bentyl prn for abdominal cramping (4) Acute on chronic anemia: Code(s): D64.9 - Anemia, unspecified Status: Acute Assessment and Plan: ACTIVE, improved, monitoring Acute, Blood count was trending down on heparin drip, s/p 2 units of PRBC's 01/14. Concern for acute GI bleeding but never had melena. Not planning intervention per discussion with family. No plan for scope. No report of hematoma on CT, but was not a CT angio --Follow blood count and transfuse as able for Hgb <7 --Blood count has been stable for several days --No report of melena (5) MRSA bacteremia: Code(s): R78.81 - Bacteremia; B95.62 - Methicillin resistant Staphylococcus aureus infection as the cause of diseases classified elsewhere Status: Acute Assessment and Plan: Recently treated for MRSA bacteremia, completed 01/13. TTE 01/03 no vegetations. Also treated for sacral pyoderma gangrenosum. Was seen by dermatology and re cently completed a steroid taper --Follow up Blood cultures x2 01/15 No growth to date --Follow WBC, ESR, CRP, temps --Currently taking Cefepime IV, Flagyl and Doxy. (6) Sacral decubitus ulcer: Code(s): L89.159 - Pressure ulcer of sacral region, unspecified stage Status: Acute Assessment and Plan: -Wound care following. Recently treated with a course of steroids at the outside hospital per Dermatology recs for pyoderma gangrenosum -treating topical steroid spray and avoiding systemic steroids given infection (7) Thrombocytopenia: Code(s): D69.6 - Thrombocytopenia, unspecified Status: Acute Assessment and Plan: ACTIVE, stable, monitoring -Plt count 81-117 during admission. Up to 100. Recently on 4 weeks of linezolid which can cause pancytopenia, so changed to an alternate medication. Was stable on heparin drip. -patient now on lovenox -monitor CBC (8) Severe malnutrition: Code(s): E43 - Unspecified severe protein-calorie malnutrition Status: Acute Assessment and Plan: Supplements per dietitian (9) Electrolyte abnormality: Code(s): E87.8 - Other disorders of electrolyte and fluid balance, not elsewhere classified Status: Acute Assessment and Plan: ACTIVE 01/15 Potassium 3.1, Phos 1.9. 20meq Kcl, 15mmol kphos, and 250 kphos tabs BID x2 doses, 40meq IV 01/16 Potassium 3.1, 40meq x2. Mag 1.8 s/p 2G IV mag today. Phos 1.8, 20mmol 01/17-01/18 Potassium 3.2 40meq IV repeat 3.6 20meq IV today 01/19 Potassium 3.2. 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 Intermittently 200's. --SSI prn (11) Constipation: Code(s): K59.00 - Constipation, unspecified Status: Acute Assessment and Plan: RESOLVED Personally reviewed CT and constipation visible. Had multiple BM's 01/16 --Continue miralax daily, bisacodyl suppository hs if no BM in 48 hours. (12) Lactic acidosis: Code(s): E87.20 - Acidosis, unspecified Status: Acute Assessment and Plan: RESOLVED significant lactic acidosis likely due to a combination of factors id metformin use,, decreased perfusion and or some hepatic dysfunction. The patient did have lactic acidosis during his last hospitalization that did not completely normalize. Lactic acid is definitely higher than prior values but this is in the setting of acute PE. Metformin is on hold. Patient's lactic acid did improve after 1 L fluid bolus. (13) Goals of care, counseling/discussion: Code(s): Z71.89 - Other specified counseling Status: Acute Assessment and Plan: ACTIVE DNR/DNI Plan Next of Kin, Vianney Moralez [phone] MEDICAL DECISION MAKING NARRATIVE -Patient seen and examined at bedside -Collaborated with patient's nurse and family at the bedside in detail and addressed all concerns -Labs, electrolytes, radiology, investigations and test results reviewed -ED/Consult/Nursing/Ancilliary notes on the chart reviewed and appreciated Patient has been admitted as observation status Subjective Date/time seen: 01/22/25 12:41 Interval history: Patient was seen and examined at bedside. he is feeling fine. has low appetite. did not work wit PT/OT today. repeat CT abd today. did not work with PT/OT yesterday. he and his asking to work with PT/OT today. hypokalemia, will give po potassium. Review of Systems Review of Systems: Review of systems unobtainable due to patient's dementia Exam Narrative: GENERAL: Comfortable, no acute distress HENMT: moist mucous membranes RESPIRATORY: clear to auscultation, no increased respiratory effort CARDIO: Regular rate and rhythm GI: soft, bowel sounds present, tenderness to palpation in all 4 quadrants SKIN/EXTREMITIES: no rashes, no edema, no redness or tenderness, muscle wasting NEURO: answers questions appropriately, A&O x4 Const: Other: Acutely ill-appearing, debilitated, deconditioned HENMT: Other: Mucous membranes are dry, no oral pharyngeal erythema, crowded posterior orophar ynx Eyes: Other: Marked conjunctival pallor, no scleral icterus, bilateral lens implants noted Neck: Other: No JVD, no lymphadenopathy Resp: Other: shallow respirations, no increased work of breathing Cardio: Other: Irregularly irregular, rate controlled, 2+ bilateral radial and pedal pulses GI: Other: Soft, slightly distended, nontender, hypoactive bowel sounds : Other: Nuñez catheter in place with clear yellow urine, scrotal edema Skin: Other: Generalized pallor, non jaundice, he numerous scattered superficial hematomas Neuro: Other: Patient is alert oriented to person and the fact that he is in the hospital, no localizing neurologic deficits noted but exam limited Extrem: Other: Marked pitting edema of the left lower extremity up through the knee and , edema of the right hand wrist and forearm, edema of the left upper extremity, Psych: Other: Pleasantly confused, cooperative, poor judgment and insight Objective Data Vital Signs Vital Signs: Vital Signs - 24 hr 01/21/25 14:00 01/21/25 20:00 01/21/25 21:47 Temperature 97.5 F L 98.0 F Pulse Rate 72 103 H Respiratory Rate 16 20 Blood Pressure 127/80 102/47 L Pulse Oximetry 96 98 Oxygen Delivery Room Air 01/22/25 06:00 01/22/25 09:19 Temperature 97.6 F Pulse Rate 101 H 99 Respiratory Rate 18 Blood Pressure 118/70 Pulse Oximetry 96 Oxygen Delivery Intake/Output Intake/Output: Intake & Output 01/19/25 01/20/25 01/21/25 01/22/25 23:59 23:59 23:59 23:59 Intake Total 710 450 350 436 Output Total 3485 9103 4995 1200 [facility] -815 -1025 -1275 -764 Meds/Results Medications: Active Medications Generic Name Dose Route Start Last Admin Trade Name Freq PRN Reason Stop Dose Admin Acetaminophen 650 mg 01/12/25 21:07 01/18/25 12:02 Acetaminophen 325 Mg Tablet PO 650 mg Q6H PRN Administration pain 1-3 or fever Hydrocodone Bitart/Acetaminophen 1 tab 01/13/25 09:00 01/22/25 09:16 Hydrocodone/Acetaminophen (*Crx) 5-325 Mg Tablet PO 1 tab Q6H NEHEMIAH Administration Aspirin 81 mg 01/13/25 09:00 01/22/25 09:18 Aspirin 81 Mg Enteric Tablet PO 81 mg DAILY NEHEMIAH Administration Bisacodyl 10 mg 01/17/25 21:00 01/21/25 21:23 Bisacodyl 10 Mg Suppository RECTAL 10 mg HS NEHEMIAH Administration Calcium Carbonate 500 mg 01/17/25 12:00 01/22/25 11:53 Calcium/Vitamin D 500 Mg/5 Mcg (200 I.U.) Tablet PO 500 mg DAILY@1200 NEHEMIAH Administration Dextrose 12.5 gm 01/13/25 02:29 Dextrose 50% 25 Gm/50 Ml Syringe IV PUSH PRN PRN Hypoglycemia Protocol Dibucaine 1 applic 01/12/25 21:07 01/17/25 21:13 Dibucaine 1% Ointment 30 Gm Tube TOPICAL 1 applic QID PRN Administration Pain of groin ulcer Dicyclomine HCl 20 mg 01/18/25 12:32 01/19/25 09:05 Dicyclomine Hcl 10 Mg Capsule PO 20 mg QID PRN Administration Abdominal Cramping Donepezil HCl 5 mg 01/12/25 21:10 01/21/25 21:19 Donepezil Hcl 5 Mg Tablet PO 5 mg QHS NEHEMIAH Administration Doxazosin Mesylate 2 mg 01/12/25 21:25 01/21/25 21:18 Doxazosin Mesylate 2 Mg Tablet PO 2 mg QHS NEHEMIAH Administration Doxycycline Hyclate 100 mg 01/17/25 09:00 01/22/25 09:21 Doxycycline Hyclate 100 Mg Tablet PO 100 mg Q12HR NEHEMIAH Administration Dutasteride 0.5 mg 01/13/25 09:00 01/22/25 09:20 Dutasteride 0.5 Mg Capsule PO 0.5 mg DAILY NEHEMIAH Administration Enoxaparin Sodium 90 mg 01/19/25 09:00 01/22/25 09:23 Enoxaparin 100 Mg/Ml Syringe SUB-Q 90 mg Q12HR NEHEMIAH Administration Fluticasone Propionate 1 spray 01/15/25 21:00 01/22/25 09:28 Fluticasone Propionate 0.05% Na Spr 16 Gm Btl (*Bkc) XX 1 spray Q12H NEHEMIAH Administration Fluticasone Propionate 1 spray 01/18/25 10:04 Fluticasone Propionate 0.05% Na Spr 16 Gm Btl (*Bkc) NASAL Q12HR PRN allergy symptoms Glucagon 1 mg 01/13/25 02:29 Glucagon For Inj 1 Mg Vial IM PRN PRN Hypoglycemia Protocol Glucose 15 gm 01/13/25 02:29 Glucose Oral Gel 15 Gm Of Glucse In 37.5 Gm Tube PO PRN PRN Hypoglycemia Protocol Dextrose 1,000 mls @ 100 mls/hr 01/13/25 02:29 Dextrose 5% 1,000 Ml IVPB PRN PRN Hypoglycemia Protocol Cefepime HCl 2 gm/ Sodium 50 mls @ 100 mls/hr 01/15/25 22:00 01/22/25 06:21 Chloride IVPB 100 mls/hr Q8H NEHEMIAH Administration Albumin Human 200 mls @ 60 mls/hr 01/16/25 01:00 01/19/25 01:10 Albutein IVPB 60 mls/hr Q8H NEHEMIAH Administration Insulin Aspart 2 - 5 units 01/13/25 08:00 01/22/25 11:58 Insulin Aspart (*Bkc) 100 Units/Ml SUB-Q Not Given TIDWM NEHEMIAH Protocol Levothyroxine Sodium 75 mcg 01/13/25 06:30 01/22/25 06:21 Levothyroxine Sodium 75 Mcg Tablet PO 75 mcg DAILY@0630 NEHEMIAH Administration Metoclopramide HCl 5 mg 01/17/25 16:30 01/22/25 11:53 Metoclopramide Hcl Inj 10 Mg/2 Ml Vial IV PUSH 5 mg TIDAC NEHEMIAH Administration Metoprolol Succinate 25 mg 01/13/25 09:00 01/22/25 09:19 Metoprolol Succinate Ext Rel 25 Mg Tabcr PO 25 mg DAILY NEHEMIAH Administration Metronidazole 500 mg 01/20/25 22:00 01/22/25 06:21 Metronidazole 500 Mg Tablet PO 500 mg Q8HR NEHEMIAH Administration Miconazole Nitrate 1 applic 01/13/25 09:00 01/22/25 09:28 Miconazole Nitrate 2% Cream 30 Gm Tube TOPICAL 1 applic Q12HR NEHEMIAH Administration Miscellaneous Information 1 each 01/22/25 00:01 Please Renew [place] And Miconazole. Per [employer] Procedure, It Will Discontinue If Not Isaiah XX 02/21/25 00:00 CLARIFY NEHEMIAH Morphine Sulfate 4 mg 01/15/25 18:57 01/21/25 19:44 Morphine Sulfate (*Crx) 4 Mg/Ml Inj IV PUSH 4 mg Q2H PRN Administration Pain Rated 9-10 Morphine Sulfate 2 mg 01/15/25 18:57 01/21/25 11:34 Morphine Sulfate (*Crx) 2 Mg/Ml Inj IV PUSH 2 mg Q2H PRN Administration Pain Rated 7-8 Pantoprazole Sodium 40 mg 01/17/25 21:00 01/22/25 09:20 Pantoprazole 40 Mg Tablet PO 40 mg Q12HR NEHEMIAH Administration Senna/Docusate Sodium 2 tab 01/13/25 09:00 01/22/25 09:17 Senna/Docusate Sodium Tablet PO 2 tab Q12HR NEHEMIAH Administration Simethicone 125 mg 01/18/25 16:30 01/22/25 11:52 Simethicone 125 Mg Chew Tab PO 125 mg ACHS NEHEMIAH Administration Radiology Results: ITS Impressions Chest CTA 01/12/25 16:59 IMPRESSION: Multiple pulmonary emboli, large clot burden, and evidence of right heart strain. Trace right and small left pleural effusions. 4 mm right upper lobe pulmonary nodule, consider an optional follow-up low-dose noncontrast CT of the chest in one year if the patient is at high risk. Gallbladder hydrops, likely secondary to fasting the absence of right upper quadrant pain or biliary labs abnormalities. Innumerable pancreatic cysts, which may represent the sequela of chronic pancreatitis, or less likely the uncommon diagnosis of isolated polycystic pancreatic disease. Correlate for pancreatic enzyme abnormalities and any symptoms of vague abdominal pain. Consider nonemergent MRI of the pancreas if there are abdominal symptoms. Results reported telephonically to Dr. Haque by Dr. Barry at 5:19 PM on 01/12/2025. Abdomen/Pelvis CT 01/15/25 19:18 IMPRESSION: 1. Multiple abscesses seen anterior to the urinary bladder. 2. Thickened wall of the gallbladder suggestive of cystitis. 3. Free fluid seen in the pelvis and paracolic gutters. 4. Left hydronephrotic changes with no definite stones. 5. Constipation. 6. Bilateral pleural effusion with adjacent atelectasis. 7. Large left renal cyst. 8. Polycystic pancreas. 9. Bilateral fat containing inguinal hernias. Labs Labs: Laboratory Results - last 24 hr 01/21/25 01/22/25 01/22/25 16:49 05:50 07:39 WBC 6.3 RBC 3.03 L Hgb 8.9 L Hct 28.9 L MCV 95.4 MCH 29.4 MCHC 30.8 L RDW 21.4 H Plt Count 156 MPV 9.9 Immature Gran % (Auto) 1.3 H Neut % (Auto) 67.2 Lymph % (Auto) 21.5 Centre % (Auto) 7.7 Eos % (Auto) 1.8 Baso % (Auto) 0.5 Lymph # (Auto) 1.35 Centre # (Auto) 0.5 Eos # (Auto) 0.1 Baso # (Auto) 0.0 Abs Immat Gran (auto) 0.08 H Absolute Neuts (auto) 4.2 Absolute Nucleated RBC 0.000 Nucleated RBC % 0.0 Sodium 144 Potassium 3.0 L Chloride 112 H Carbon Dioxide 21 L Anion Gap 11 BUN 21 H Creatinine 0.71 Estim Creat Clear Calc 77 Estimated GFR > 60 Glucose 129 H POC Capillary Glucose 158 H 133 H Calcium 10.1 Quality VTE Prophylaxis VTE prophylaxis: mechanical ordered and pharmacologic ordered
[2025-01-22 14:00] VITALS: BP 117/47; PULSE 97; RESP 16; TEMP 36.6; O2SAT 98
[2025-01-22 14:27] VITALS: BMI 10.0
[2025-01-22 20:00] VITALS: PULSE 72; RESP 16; O2SAT 100
[2025-01-22] MEDS: BISACODYL 10 MG SUPPOSITORY RECTAL (21:10)
[2025-01-22] MEDS: DOXAZOSIN MESYLATE 2 MG TABLET PO (21:11)
[2025-01-22 21:15] VITALS: BP 143/62; PULSE 72; RESP 16; TEMP 36.4; O2SAT 100
[2025-01-22 21:23] VITALS: O2SAT 100
[2025-01-23] MEDS: HYDROcodone/acetaminophen (*CRX) 5-325 MG TABLET 1 TAB PO ×4 (03:35→21:43)
[2025-01-23] MEDS: CEFEPIME 2 GM in SODIUM CHLORIDE 0.9% IV 50 ML 100 ML IVPB (05:11)
[2025-01-23 05:15] VITALS: BP 120/56; PULSE 107; RESP 16; TEMP 36.5; O2SAT 97
[2025-01-23] MEDS: SIMETHICONE 125 MG CHEW TAB PO ×2 (05:41→21:42)
[2025-01-23] MEDS: LEVOTHYROXINE SODIUM 75 MCG TABLET PO (05:41)
[2025-01-23] MEDS: METOCLOPRAMIDE HCL INJ 10 MG/2 ML VIAL 5 MG IV PUSH ×3 (05:47→17:33)
[2025-01-23 06:12] LABS: Hematocrit 28.1 % (42.0-52.0); Hemoglobin 8.8 g/dL (14.0-18.0); Immature Granulocyte Percent A 1.5 % (0-0.5); Lymphocytes Absolute Auto 1.14 K/mm3 (0.9-3.2); Mean Corpuscular HGB Conc 31.3 g/dl (32-36); Mean Corpuscular Hemoglobin 29.7 pg (26-34); Mean Corpuscular Volume 94.9 fl (80-100); Nucleated Red Blood Cells Absolute Auto 0.000 K/mm3 (0.0-0.012); Nucleated Red Blood Cells Perc 0.0 % (0.0-0.2); Platelet Count Result 191 k/mm3 (150-375); Red Blood Count 2.96 M/mm3 (4.6-6.20); White Blood Count 5.9 K/mm3 (4.5-10.0)
--- NOTE | 2025-01-23 06:30 | PC.NURSE ---
Pt refusing IV PRN pain meds when this nurse offered around 0100. He did report a 7-8/10 pain in his abdomen but then said it was too fast to give anything else for pain. I explained he was due to have the morphine if he felt like he needed/wanted it but he declined and said that the pain wasn't that bad. I offered the morphine again this morning around 0600 and patient said that he didn't need it.
[2025-01-23 06:35] LABS: Anion Gap 10 mmol/L (4-12); Blood Urea Nitrogen 20 mg/dL (9-20); Calcium 10.1 mg/dL (8.4-10.2); Carbon Dioxide 21 mmol/L (22-30); Chloride 111 mmol/L (98-107); Estimated CRCL calculation 86 ml/min; Estimated Glomerular Filt Rate > 60; Glucose 130 mg/dL (65-110); Potassium 2.7 mmol/L (3.4-5.0); Sodium 142 mmol/L (137-145)
[2025-01-23 06:59] LABS: Magnesium 2.0 mg/dL (1.6-2.3)
[2025-01-23] MEDS: MORPHINE SULFATE (*CRX) 2 MG/ML INJ IV PUSH (07:04)
[2025-01-23 08:00] VITALS: PULSE 107; RESP 16; O2SAT 97
[2025-01-23] MEDS: ASPIRIN 81 MG ENTERIC TABLET PO (09:31)
[2025-01-23] MEDS: DUTASTERIDE 0.5 MG CAPSULE PO (09:31)
[2025-01-23] MEDS: METOPROLOL SUCCINATE EXT REL 25 MG TABCR PO (09:31)
[2025-01-23] MEDS: PANTOPRAZOLE 40 MG TABLET PO ×2 (09:31→21:43)
[2025-01-23] MEDS: SENNA/DOCUSATE SODIUM TABLET 2 TAB PO ×2 (09:31→21:42)
[2025-01-23] MEDS: DOXYCYCLINE HYCLATE 100 MG TABLET PO ×2 (09:31→21:42)
[2025-01-23] MEDS: MICONAZOLE NITRATE 2% CREAM 30 GM TUBE 1 APPLIC TOPICAL ×2 (09:32→21:43)
[2025-01-23] MEDS: POTASSIUM CHLORIDE 20 MEQ PACKET (FOR LIQUID) 40 MEQ PO (09:32)
[2025-01-23] MEDS: FLUTICASONE PROPIONATE 0.05% NA SPR 16 GM BTL (*BKC) 1 SPRAY XX ×2 (09:37→21:43)
[2025-01-23] MEDS: POTASSIUM CHLORIDE INJ 40 MEQ in SODIUM CHLORIDE 0.9% IV 500 ML 130 MEQ IVPB (09:47)
[2025-01-23] MEDS: SODIUM CHLORIDE 0.9% IV 250 ML 30 ML (09:48)
[2025-01-23] MEDS: ENOXAPARIN 100 MG/ML SYRINGE 90 MG SUB-Q ×2 (09:51→21:42)
[2025-01-23] MEDS: MORPHINE SULFATE (*CRX) 4 MG/ML INJ IV PUSH ×2 (12:39→18:28)
[2025-01-23] MEDS: AMPICILLIN SODIUM/SULBACTAM 3 GM in SODIUM CHLORIDE 0.9% IV 100 ML 200 ML IVPB ×2 (13:25→17:33)
--- NOTE | 2025-01-23 13:27 | P.PNIM_ITS ---
Progress Note: A&P Assessment and Plan (1) Pulmonary embolism: Qualifiers: Acute cor pulmonale presence: with acute cor pulmonale Chronicity: acute Pulmonary embolism type: unspecified Qualified Code(s): I26.09 - Other pulmonary embolism with acute cor pulmonale Code(s): I26.99 - Other pulmonary embolism without acute cor pulmonale Status: Acute Assessment and Plan: ACTIVE, improved, monitoring Right heart strain on CT 01/15. Recent diagnosis of DVT at [facility], was on Eliquis. Not requiring oxygen. Tachycardia resolved. DNR/DNI. Spoke with his daughter and his at the bedside and the patient 01/18 TTE no evidence of heart strain -On a heparin drip from 01/15-01/19 for concern for bleeding. Hgb has ranged from 7.1-8.1 the last couple days Acute drop on 01/14 (7.9>5.4 and received 2 unit PRBC's) No report of acute blood loss or melena. -Changed to Lovenox 01/19 Hb has been stable Spoke with family members daily ( and daughter) and aggressive interventions not goals of care. Declined option for transfer to higher acuity, but that is appropriate because goals of care primarily palliative with limited interventions. Giving blood for Hgb <7 --Readdress palliative care or hospice if new hemodynamic changes (2) Abdominal abscess: Status: Acute Assessment and Plan: ACTIVE, acute Recent bladder rupture, treated at [place]. CT abd/pelvis at OSH 01/08 showed evolving sequelae of extraperitoneal bladder rupture within an capsulated mixed gas-fluid collection in the space Retzius and fluid component of which is decreased in size compared to prior examination in continuity with the anterior urinary bladder wall defect fluid directing subjacent to the rectus abdominus musculature no new organized or drainable fluid collection to partially imaged subsegmental bilateral pulmonary emboli as previously seen on the prior CT from 12/27 had been treated with Zosyn, Flagyl and Vanc, then cefepime and Vanc. Was seen by ID at OSH. DC'd cefepime and vanc & started linezolid on 01/03 and completed 4 weeks of treatment of MRSA bacteremia -Spoke with family and not pursuing surgical options given comorbidities -Suspect suprapubic pain 2/2 abscess and suspect generalized pain related to abdominal distention so started simethicone and bentyl prn --01/15 Started empiric Cefepime, Flagyl. Changed zyvox to doxycycline for thrombocytopenia. Repeat CT CAP in about a week (01/22) to monitor abscess on current antibiotics before deciding end date. Consider a 3 week course and outpatient ID follow up at the [facility] ID clinic if improving [phone] --Pain control: Tylenol, Fallon, Dilaudid prn. Ideally would limit opiates for gastric distention/bloating but will continue for abdominal abscess/recent bladder perforation --Follow daily CBC. Weekly CRP & ESR --Do not remove Nuñez except with urology consultation. No acute indication for urology consultation because no plan for interventions at this point CT CAP 01/15 1. Multiple abscesses seen anterior to the urinary bladder. 2. Thickened wall of the gallbladder suggestive of cystitis. 3. Free fluid seen in the pelvis and paracolic gutters. 4. Left hydronephrotic changes with no definite stones. 5. Constipation. 6. Bilateral pleural effusion with adjacent atelectasis. 7. Large left renal cyst. 8. Polycystic pancreas. 9. Bilateral fat containing inguinal hernias. CT 01/22/25 Multiple abscess anterior to the urinary bladder with minimal change since previous examination. Thickened wall of the urinary bladder with possible perforation (3) Abdominal pain: Qualifiers: Abdominal location: generalized Qualified Code(s): R10.84 - Generalized abdominal pain Code(s): R10.9 - Unspecified abdominal pain Status: Acute Assessment and Plan: Overall improved but more abdominal pain intermittently. Abdominal hyperactive. Had a BM. Not eating well. --Tylenol, Vicodin,add Morphine 2-4mg q4 prn since not taking PO well --Schedule simethicone and bentyl prn for abdominal cramping (4) Acute on chronic anemia: Code(s): D64.9 - Anemia, unspecified Status: Acute Assessment and Plan: ACTIVE, improved, monitoring Acute, Blood count was trending down on heparin drip, s/p 2 units of PRBC's 01/14. Concern for acute GI bleeding but never had melena. Not planning intervention per discussion with family. No plan for scope. No report of hematoma on CT, but was not a CT angio --Follow blood count and transfuse as able for Hgb <7 --Blood count has been stable for several days --No report of melena (5) MRSA bacteremia: Code(s): R78.81 - Bacteremia; B95.62 - Methicillin resistant Staphylococcus aureus infection as the cause of diseases classified elsewhere Status: Acute Assessment and Plan: Recently treated for MRSA bacteremia, completed 01/13. TTE 01/03 no vegetations. Also treated for sacral pyoderma gangrenosum. Was seen by dermatology and recently completed a steroid taper --Follow up Blood cultures x2 01/15 No growth to date --Follow WBC, ESR, CRP, temps --Currently taking Cefepime IV, Flagyl and Doxy. Abx changed to Unasyn. discussed with Pharmacy team. (6) Sacral decubitus ulcer: Code(s): L89.159 - Pressure ulcer of sacral region, unspecified stage Status: Acute Assessment and Plan: -Wound care following. Recently treated with a course of steroids at the outside hospital per Dermatology recs for pyoderma gangrenosum -treating topical steroid spray and avoiding systemic steroids given infection (7) Thrombocytopenia: Code(s): D69.6 - Thrombocytopenia, unspecified Status: Acute Assessment and Plan: ACTIVE, stable, monitoring -Plt count 81-117 during admission. Up to 100. Recently on 4 weeks of linezolid which can cause pancytopenia, so changed to an alternate medication. Was stable on heparin drip. -patient now on lovenox -monitor CBC (8) Severe malnutrition: Code(s): E43 - Unspecified severe protein-calorie malnutrition Status: Acute Assessment and Plan: Supplements per dietitian (9) Electrolyte abnormality: Code(s): E87.8 - Other disorders of electrolyte and fluid balance, not elsewhere classified Status: Acute Assessment and Plan: ACTIVE 01/15 Potassium 3.1, Phos 1.9. 20meq Kcl, 15mmol kphos, and 250 kphos tabs BID x2 doses, 40meq IV 01/16 Potassium 3.1, 40meq x2. Mag 1.8 s/p 2G IV mag today. Phos 1.8, 20mmol 01/17-01/18 Potassium 3.2 40meq IV repeat 3.6 20meq IV today 01/19 Potassium 3.2. Schedule potassium 10 TID x2 days has low potassium will give po potassium --Follow potassium, mag, and phos --Has a poor appetite, eating bites --DC'd tele since no CPR (10) Type 2 diabetes mellitus with hyperglycemia: Qualifiers: Diabetes mellitus senior living insulin use: without senior living use Qualified Code(s): E11.65 - Type 2 diabetes mellitus with hyperglycemia Code(s): E11.65 - Type 2 diabetes mellitus with hyperglycemia Status: Chronic Assessment and Plan: MONITORING Blood sugars 124-200. Intermittently 200's. --SSI prn (11) Constipation: Code(s): K59.00 - Constipation, unspecified Status: Acute Assessment and Plan: RESOLVED Personally reviewed CT and constipation visible. Had multiple BM's 01/16 --Continue miralax daily, bisacodyl suppository hs if no BM in 48 hours. (12) Lactic acidosis: Code(s): E87.20 - Acidosis, unspecified Status: Acute Assessment and Plan: RESOLVED significant lactic acidosis likely due to a combination of factors id metformin use,, decreased perfusion and or some hepatic dysfunction. The patient did have lactic acidosis during his last hospitalization that did not completely normalize. Lactic acid is definitely higher than prior values but this is in the setting of acute PE. Metformin is on hold. Patient's lactic acid did improve after 1 L fluid bolus. (13) Goals of care, counseling/discussion: Code(s): Z71.89 - Other specified counseling Status: Acute Assessment and Plan: ACTIVE DNR/DNI Plan Next of Kin, Vianney Moralez [phone] MEDICAL DECISION MAKING NARRATIVE -Patient seen and examined at bedside -Collaborated with patient's nurse and family at the bedside in detail and addressed all concerns -Labs, electrolytes, radiology, investigations and test results reviewed -ED/Consult/Nursing/Ancilliary notes on the chart reviewed and appreciated Patient has been admitted as observation status Subjective Date/time seen: 01/23/25 13:27 Interval history: Patient was seen and examined at bedside. he is feeling fine. has low appetite. did not work wit PT/OT today. repeat CT abd today. did not work with PT/OT yesterday. he and his asking to work with PT/OT today. hypokalemia, will give po potassium. 01/23/25 Patient was seen and examined at bedside. he is sleeping comfortably. reviewed Ct abd with her daughter at bedside.Multiple abscess anterior to the urinary bladder with minimal change since previous examination. Thickened wall of the urinary bladder with possible perforation waiting for his family discussion about goal of care. Review of Systems Review of Systems: Review of systems unobtainable due to patient's dementia Exam Narrative: GENERAL: Comfortable, no acute distress HENMT: moist mucous membranes RESPIRATORY: clear to auscultation, no increased respiratory effort CARDIO: Regular rate and rhythm GI: soft, bowel sounds present, tenderness to palpation in all 4 quadrants SKIN/EXTREMITIES: no rashes, no edema, no redness or tenderness, muscle wasting NEURO: answers questions appropriately, A&O x4 Const: Other: Acutely ill-appearing, debilitated, deconditioned HENMT: Other: Mucous membranes are dry, no oral pharyngeal erythema, crowded posterior oropharynx Eyes: Other: Marked conjunctival pallor, no scleral icterus, bilateral lens implants noted Neck: Other: No JVD, no lymphadenopathy Resp: Other: shallow respirations, no increased work of breathing Cardio: Other: Irregularly irregular, rate controlled, 2+ bilateral radial and pedal pulses GI: Other: Soft, slightly distended, nontender, hypoactive bowel sounds : Other: Nuñez catheter in place with clear yellow urine, scrotal edema Skin: Other: Generalized pallor, non jaundice, he numerous scattered superficial hematomas Neuro: Other: Patient is alert oriented to person and the fact that he is in the hospital, no localizing neurologic deficits noted but exam limited Extrem: Other: Marked pitting edema of the left lower extremity up through the knee and , edema of the right hand wrist and forearm, edema of the left upper extremity, Psych: Other: Pleasantly confused, cooperative, poor judgment and insight Objective Data Vital Signs Vital Signs: Vital Signs - 24 hr 01/22/25 14:00 01/22/25 14:16 01/22/25 14:27 Temperature 97.9 F Pulse Rate 97 Respiratory Rate 16 Blood Pressure 117/47 L Pulse Oximetry 98 Oxygen Delivery Room Air Room Air Fraction of Inspired Oxygen 01/22/25 20:00 01/22/25 21:15 01/22/25 21:23 Temperature 97.5 F L Pulse Rate 72 72 Respiratory Rate 16 16 Blood Pressure 143/62 H Pulse Oximetry 100 100 100 Oxygen Delivery Room Air Room Air Fraction of Inspired Oxygen 01/23/25 05:15 Temperature 97.7 F Pulse Rate 107 H Respiratory Rate 16 Blood Pressure 120/56 L Pulse Oximetry 97 Oxygen Delivery Fraction of Inspired Oxygen Intake/Output Intake/Output: Intake & Output 01/20/25 01/21/25 01/22/25 01/23/25 23:59 23:59 23:59 23:59 Intake Total 066 145 0375 500 Output Total 1475 1625 1850 675 [facility] -[phone] Meds/Results Medications: Active Medications Generic Name Dose Route Start Last Admin Trade Name Freq PRN Reason Stop Dose Admin Acetaminophen 650 mg 01/12/25 21:07 01/18/25 12:02 Acetaminophen 325 Mg Tablet PO 650 mg Q6H PRN Administration pain 1-3 or fever Hydrocodone Bitart/Acetaminophen 1 tab 01/13/25 09:00 01/23/25 09:31 Hydrocodone/Acetaminophen (*Crx) 5-325 Mg Tablet PO 1 tab Q6H NEHEMAIH Administration Aspirin 81 mg 01/13/25 09:00 01/23/25 09:31 Aspirin 81 Mg Enteric Tablet PO 81 mg DAILY NEHEMIAH Administration Bisacodyl 10 mg 01/17/25 21:00 01/22/25 21:10 Bisacodyl 10 Mg Suppository RECTAL 10 mg HS NEHEMIAH Administration Calcium Carbonate 500 mg 01/17/25 12:00 01/23/25 12:39 Calcium/Vitamin D 500 Mg/5 Mcg (200 I.U.) Tablet PO 500 mg DAILY@1200 NEHEMIAH Administration Dextrose 12.5 gm 01/13/25 02:29 Dextrose 50% 25 Gm/50 Ml Syringe IV PUSH PRN PRN Hypoglycemia Protocol Dibucaine 1 applic 01/12/25 21:07 01/17/25 21:13 Dibucaine 1% Ointment 30 Gm Tube TOPICAL 1 applic QID PRN Administration Pain of groin ulcer Dicyclomine HCl 20 mg 01/18/25 12:32 01/19/25 09:05 Dicyclomine Hcl 10 Mg Capsule PO 20 mg QID PRN Administration Abdominal Cramping Donepezil HCl 5 mg 01/12/25 21:10 01/22/25 22:58 Donepezil Hcl 5 Mg Tablet PO Not Given QHS NEHEMIAH Doxazosin Mesylate 2 mg 01/12/25 21:25 01/22/25 21:11 Doxazosin Mesylate 2 Mg Tablet PO 2 mg QHS NEHEMIAH Administration Doxycycline Hyclate 100 mg 01/17/25 09:00 01/23/25 09:31 Doxycycline Hyclate 100 Mg Tablet PO 100 mg Q12HR NEHEMIAH Administration Dutasteride 0.5 mg 01/13/25 09:00 01/23/25 09:31 Dutasteride 0.5 Mg Capsule PO 0.5 mg DAILY NEHEMIAH Administration Enoxaparin Sodium 90 mg 01/19/25 09:00 01/23/25 09:51 Enoxaparin 100 Mg/Ml Syringe SUB-Q 90 mg Q12HR NEHEMIAH Administration Fluticasone Propionate 1 spray 01/15/25 21:00 01/23/25 09:37 Fluticasone Propionate 0.05% Na Spr 16 Gm Btl (*Bkc) XX 1 spray Q12H NEHEMIAH Administration Fluticasone Propionate 1 spray 01/18/25 10:04 Fluticasone Propionate 0.05% Na Spr 16 Gm Btl (*Bkc) NASAL Q12HR PRN allergy symptoms Glucagon 1 mg 01/13/25 02:29 Glucagon For Inj 1 Mg Vial IM PRN PRN Hypoglycemia Protocol Glucose 15 gm 01/13/25 02:29 Glucose Oral Gel 15 Gm Of Glucse In 37.5 Gm Tube PO PRN PRN Hypoglycemia Protocol Dextrose 1,000 mls @ 100 mls/hr 01/13/25 02:29 Dextrose 5% 1,000 Ml IVPB PRN PRN Hypoglycemia Protocol Albumin Human 200 mls @ 60 mls/hr 01/16/25 01:00 01/19/25 01:10 Albutein IVPB 60 mls/hr Q8H NEHEMIAH Administration Ampicillin Sodium/Sulbactam 100 mls @ 200 mls/hr 01/23/25 12:00 01/23/25 13:25 Sodium 3 gm/ Sodium Chloride IVPB 200 mls/hr Q6H NEHEMIAH Administration Insulin Aspart 2 - 5 units 01/13/25 08:00 01/23/25 12:38 Insulin Aspart (*Bkc) 100 Units/Ml SUB-Q Not Given TIDWM [facility] Protocol Levothyroxine Sodium 75 mcg 01/13/25 06:30 01/23/25 05:41 Levothyroxine Sodium 75 Mcg Tablet PO 75 mcg DAILY@0630 NEHEMIAH Administration Metoclopramide HCl 5 mg 01/17/25 16:30 01/23/25 12:40 Metoclopramide Hcl Inj 10 Mg/2 Ml Vial IV PUSH 5 mg TIDAC NEHEMIAH Administration Metoprolol Succinate 25 mg 01/13/25 09:00 01/23/25 09:31 Metoprolol Succinate Ext Rel 25 Mg Tabcr PO 25 mg DAILY NEHEMIAH Administration Miconazole Nitrate 1 applic 01/13/25 09:00 01/23/25 09:32 Miconazole Nitrate 2% Cream 30 Gm Tube TOPICAL 1 applic Q12HR NEHEMIAH Administration Miscellaneous Information 1 each 01/22/25 00:01 01/23/25 09:30 Please Renew Fallon And Miconazole. Per [employer] Procedure, It Will Discontinue If Not Isaiah XX 02/21/25 00:00 1 each CLARIFY NEHEMIAH Administration Morphine Sulfate 4 mg 01/15/25 18:57 01/23/25 12:39 Morphine Sulfate (*Crx) 4 Mg/Ml Inj IV PUSH 4 mg Q2H PRN Administration Pain Rated 9-10 Morphine Sulfate 2 mg 01/15/25 18:57 01/23/25 07:04 Morphine Sulfate (*Crx) 2 Mg/Ml Inj IV PUSH 2 mg Q2H PRN Administration Pain Rated 7-8 Pantoprazole Sodium 40 mg 01/17/25 21:00 01/23/25 09:31 Pantoprazole 40 Mg Tablet PO 40 mg Q12HR NEHEMIAH Administration Potassium Chloride 40 meq 01/23/25 09:00 01/23/25 09:32 Potassium Chloride 20 Meq Packet (For Liquid) PO 40 meq DAILY NEHEMIAH Administration Senna/Docusate Sodium 2 tab 01/13/25 09:00 01/23/25 09:31 Senna/Docusate Sodium Tablet PO 2 tab Q12HR NEHEMIAH Administration Simethicone 125 mg 01/18/25 16:30 01/23/25 12:39 Simethicone 125 Mg Chew Tab PO 125 mg ACHS NEHEMIAH Administration Radiology Results: ITS Impressions Chest CTA 01/12/25 16:59 IMPRESSION: Multiple pulmonary emboli, large clot burden, and evidence of right heart strain. Trace right and small left pleural effusions. 4 mm right upper lobe pulmonary nodule, consider an optional follow-up low-dose noncontrast CT of the chest in one year if the patient is at high risk. Gallbladder hydrops, likely secondary to fasting the absence of right upper quadrant pain or biliary labs abnormalities. Innumerable pancreatic cysts, which may represent the sequela of chronic pancreatitis, or less likely the uncommon diagnosis of isolated polycystic pancreatic disease. Correlate for pancreatic enzyme abnormalities and any symptoms of vague abdominal pain. Consider nonemergent MRI of the pancreas if there are abdominal symptoms. Results reported telephonically to Dr. Haque by Dr. Barry at 5:19 PM on 01/12/2025. Abdomen/Pelvis CT 01/15/25 19:18 IMPRESSION: 1. Multiple abscesses seen anterior to the urinary bladder. 2. Thickened wall of the gallbladder suggestive of cystitis. 3. Free fluid seen in the pelvis and paracolic gutters. 4. Left hydronephrotic changes with no definite stones. 5. Constipation. 6. Bilateral pleural effusion with adjacent atelectasis. 7. Large left renal cyst. 8. Polycystic pancreas. 9. Bilateral fat containing inguinal hernias. Chest/Abdomen/Pelvis CT 01/22/25 16:17 IMPRESSION: CHEST: 1. Bilateral large pleural effusion with adjacent atelectasis versus pneumonia 2. Atelectasis versus pneumonia in the lingula.. ABDOMEN/PELVIS: 1. No evidence of appendicitis, diverticulitis or intestinal obstruction. 2. Multiple abscess anterior to the urinary bladder with minimal change since previous examination. Thickened wall of the urinary bladder with possible perforation. 3. Polycystic pancreas. 4. Left hydronephrotic changes and left renal cyst. 5. Constipation. 6. Bilateral inguinal fat containing hernia. 7. Distended gallbladder with no definite stones. Labs Labs: Laboratory Results - last 24 hr 01/22/25 01/22/25 01/22/25 11:30 16:36 21:17 WBC RBC Hgb Hct MCV MCH MCHC RDW Plt Count MPV Immature Gran % (Auto) Neut % (Auto) Lymph % (Auto) [place] % (Auto) Eos % (Auto) Baso % (Auto) Lymph # (Auto) [place] # (Auto) Eos # (Auto) Baso # (Auto) Abs Immat Gran (auto) Absolute Neuts (auto) Absolute Nucleated RBC Nucleated RBC % Sodium Potassium Chloride Carbon Dioxide Anion Gap BUN Creatinine Estim Creat Clear Calc Estimated GFR Glucose POC Capillary Glucose 133 H 147 H 139 H Calcium Magnesium 01/23/25 01/23/25 01/23/25 05:50 07:38 11:18 WBC 5.9 RBC 2.96 L Hgb 8.8 L Hct 28.1 L MCV 94.9 MCH 29.7 MCHC 31.3 L RDW 21.5 H Plt Count 191 MPV 10.1 Immature Gran % (Auto) 1.5 H Neut % (Auto) 70.4 Lymph % (Auto) 19.2 [place] % (Auto) 7.2 Eos % (Auto) 1.2 Baso % (Auto) 0.5 Lymph # (Auto) 1.14 [place] # (Auto) 0.4 Eos # (Auto) 0.1 Baso # (Auto) 0.0 Abs Immat Gran (auto) 0.09 H Absolute Neuts (auto) 4.2 Absolute Nucleated RBC 0.000 Nucleated RBC % 0.0 Sodium 142 Potassium 2.7 L* Chloride 111 H Carbon Dioxide 21 L Anion Gap 10 BUN 20 Creatinine 0.63 L Estim Creat Clear Calc 86 Estimated GFR > 60 Glucose 130 H POC Capillary Glucose 152 H 146 H Calcium 10.1 Magnesium 2.0 Quality VTE Prophylaxis VTE prophylaxis: mechanical ordered and pharmacologic ordered
[2025-01-23 14:00] VITALS: BP 126/55; PULSE 91; RESP 16; TEMP 36.6; O2SAT 98
--- NOTE | 2025-01-23 14:22 | PCNFU ---
Nutrition Follow-Up Complete: Suboptimal po intake related to poor appetite as evidenced by family report Goal:PO intake greater than 50% of meals and supplements Pt not meeting goal at this time Pt current nutrition is Heart healthy, Ensure Enlive TID, nutrition ice cream BID. Nutrition recommendation: continue with current plan of care Last recorded weight is 88.9 kg. Bowel Motility: +BM 01/20 Labs Reviewed: Hgb:8.8, HCT:28.1, K:2.7, Cr:0.63, Glu:130 Meds Noted: protonix, reglan, senna Skin: no pressure Additional Notes: Pt continues on a heart healthy diet, ensure with meals, nutrition ice cream cups. Pt continues to just consume bites and sips per family. Family assists and encourages. Agree with orders, continue with current plan of care. Monitor intake, wt, labs. Follow up in 7 days.
[2025-01-23 20:00] VITALS: PULSE 107; RESP 20; O2SAT 95
[2025-01-23 20:25] VITALS: BP 103/63; PULSE 107; RESP 20; TEMP 36.3; O2SAT 95
[2025-01-23 21:31] VITALS: O2SAT 95
[2025-01-23] MEDS: DOXAZOSIN MESYLATE 2 MG TABLET PO (21:42)
[2025-01-23] MEDS: BISACODYL 10 MG SUPPOSITORY RECTAL (21:42)
[2025-01-23] MEDS: DONEPEZIL HCL 5 MG TABLET PO (21:43)
[2025-01-24] MEDS: MORPHINE SULFATE (*CRX) 4 MG/ML INJ IV PUSH ×4 (00:08→18:22)
[2025-01-24] MEDS: AMPICILLIN SODIUM/SULBACTAM 3 GM in SODIUM CHLORIDE 0.9% IV 100 ML 200 ML IVPB ×4 (00:08→17:34)
--- NOTE | 2025-01-24 03:49 | PC.NURSE ---
Attempted to give patient his scheduled [place] due at 0300. The patient said, help me help me. When asked what can we help him with, he states, I'm sick. I told him I was here to help him and had his pain pill and he screamed with get the F out of here smarta! I returned the pain pill to the [facility] and told him he has IV pain meds if he wants them. He again screamed at me to get out of his room.
[2025-01-24 04:55] VITALS: BP 127/59; PULSE 66; RESP 20; TEMP 36.2; O2SAT 100
[2025-01-24] MEDS: LEVOTHYROXINE SODIUM 75 MCG TABLET PO (06:14)
[2025-01-24] MEDS: SIMETHICONE 125 MG CHEW TAB PO ×3 (06:14→17:44)
[2025-01-24] MEDS: METOCLOPRAMIDE HCL INJ 10 MG/2 ML VIAL 5 MG IV PUSH ×3 (06:14→17:33)
[2025-01-24 06:17] LABS: Hematocrit 28.5 % (42.0-52.0); Hemoglobin 8.8 g/dL (14.0-18.0); Immature Granulocyte Percent A 1.5 % (0-0.5); Lymphocytes Absolute Auto 1.36 K/mm3 (0.9-3.2); Mean Corpuscular HGB Conc 30.9 g/dl (32-36); Mean Corpuscular Hemoglobin 29.8 pg (26-34); Mean Corpuscular Volume 96.6 fl (80-100); Nucleated Red Blood Cells Absolute Auto 0.000 K/mm3 (0.0-0.012); Nucleated Red Blood Cells Perc 0.0 % (0.0-0.2); Platelet Count Result 221 k/mm3 (150-375); Red Blood Count 2.95 M/mm3 (4.6-6.20); White Blood Count 6.0 K/mm3 (4.5-10.0)
[2025-01-24 06:41] LABS: Anion Gap 9 mmol/L (4-12); Blood Urea Nitrogen 18 mg/dL (9-20); Calcium 10.1 mg/dL (8.4-10.2); Carbon Dioxide 21 mmol/L (22-30); Chloride 115 mmol/L (98-107); Estimated CRCL calculation 88 ml/min; Estimated Glomerular Filt Rate > 60; Glucose 116 mg/dL (65-110); Potassium 2.8 mmol/L (3.4-5.0); Sodium 145 mmol/L (137-145)
[2025-01-24 06:51] LABS: Anisocytosis 1+
[2025-01-24 06:52] LABS: Schistocytes None Seen
[2025-01-24 07:06] LABS: Magnesium 2.1 mg/dL (1.6-2.3)
[2025-01-24] MEDS: POTASSIUM CHLORIDE INJ 40 MEQ in SODIUM CHLORIDE 0.9% IV 500 ML 130 MEQ IVPB (07:06)
[2025-01-24] MEDS: POTASSIUM CHLORIDE 20 MEQ PACKET (FOR LIQUID) 40 MEQ PO (07:07)
[2025-01-24] MEDS: ENOXAPARIN 100 MG/ML SYRINGE 90 MG SUB-Q (09:16)
[2025-01-24] MEDS: DOXYCYCLINE HYCLATE 100 MG TABLET PO ×2 (09:17→21:46)
[2025-01-24] MEDS: HYDROcodone/acetaminophen (*CRX) 5-325 MG TABLET 1 TAB PO ×2 (09:17→15:21)
[2025-01-24] MEDS: SENNA/DOCUSATE SODIUM TABLET 2 TAB PO (09:17)
[2025-01-24] MEDS: DUTASTERIDE 0.5 MG CAPSULE PO (09:18)
[2025-01-24] MEDS: METOPROLOL SUCCINATE EXT REL 25 MG TABCR PO (09:18)
[2025-01-24] MEDS: PANTOPRAZOLE 40 MG TABLET PO (09:18)
[2025-01-24] MEDS: ASPIRIN 81 MG ENTERIC TABLET PO (09:18)
[2025-01-24 11:28] VITALS: O2SAT 94
[2025-01-24] MEDS: CALCIUM/VITAMIN D 500 MG/5 MCG (200 I.U.) TABLET PO (11:53)
[2025-01-24 12:44] LABS: Blood Urea Nitrogen 16 mg/dL (9-20); Calcium 10.2 mg/dL (8.4-10.2); Carbon Dioxide 23 mmol/L (22-30); Estimated CRCL calculation 87 ml/min; Estimated Glomerular Filt Rate > 60; Glucose 124 mg/dL (65-110)
[2025-01-24 12:58] LABS: Anion Gap 9 mmol/L (4-12); Chloride 115 mmol/L (98-107); Potassium 3.4 mmol/L (3.4-5.0); Sodium 147 mmol/L (137-145)
[2025-01-24 14:00] VITALS: BP 118/68; PULSE 58; RESP 16; TEMP 36.3; O2SAT 99
--- NOTE | 2025-01-24 14:34 | P.PNIM_ITS ---
Progress Note: A&P Assessment and Plan (1) Pulmonary embolism: Qualifiers: Acute cor pulmonale presence: with acute cor pulmonale Chronicity: acute Pulmonary embolism type: unspecified Qualified Code(s): I26.09 - Other pulmonary embolism with acute cor pulmonale Code(s): I26.99 - Other pulmonary embolism without acute cor pulmonale Status: Acute Assessment and Plan: ACTIVE, improved, monitoring Right heart strain on CT 01/15. Recent diagnosis of DVT at [facility], was on Eliquis. Not requiring oxygen. Tachycardia resolved. DNR/DNI. Spoke with his daughter and his at the bedside and the patient 01/18 TTE no evidence of heart strain -On a heparin drip from 01/15-01/19 for concern for bleeding. Hgb has ranged from 7.1-8.1 the last couple days Acute drop on 01/14 (7.9>5.4 and received 2 unit PRBC's) No report of acute blood loss or melena. -Changed to Lovenox 01/19 Hb has been stable Spoke with family members daily ( and daughter) and aggressive interventions not goals of care. Declined option for transfer to higher acuity, but that is appropriate because goals of care primarily palliative with limited interventions. Giving blood for Hgb <7 --Readdress palliative care or hospice if new hemodynamic changes (2) Abdominal abscess: Status: Acute Assessment and Plan: ACTIVE, acute Recent bladder rupture, treated at [place]. CT abd/pelvis at OSH 01/08 showed evolving sequelae of extraperitoneal bladder rupture within an capsulated mixed gas-fluid collection in the space Retzius and fluid component of which is decreased in size compared to prior examination in continuity with the anterior urinary bladder wall defect fluid directing subjacent to the rectus abdominus musculature no new organized or drainable fluid collection to partially imaged subsegmental bilateral pulmonary emboli as previously seen on the prior CT from 12/27 had been treated with Zosyn, Flagyl and Vanc, then cefepime and Vanc. Was seen by ID at OSH. DC'd cefepime and vanc & started linezolid on 01/03 and completed 4 weeks of treatment of MRSA bacteremia -Spoke with family and not pursuing surgical options given comorbidities -Suspect suprapubic pain 2/2 abscess and suspect generalized pain related to abdominal distention so started simethicone and bentyl prn --01/15 Started empiric Cefepime, Flagyl. Changed zyvox to doxycycline for thrombocytopenia. Repeat CT CAP in about a week (01/22) to monitor abscess on current antibiotics before deciding end date. Consider a 3 week course and outpatient ID follow up at the [facility] clinic if improving [phone] --Pain control: Tylenol, Iuka, Dilaudid prn. Ideally would limit opiates for gastric distention/bloating but will continue for abdominal abscess/recent bladder perforation --Follow daily CBC. Weekly CRP & ESR --Do not remove Nuñez except with urology consultation. No acute indication for urology consultation because no plan for interventions at this point CT CAP 01/15 1. Multiple abscesses seen anterior to the urinary bladder. 2. Thickened wall of the gallbladder suggestive of cystitis. 3. Free fluid seen in the pelvis and paracolic gutters. 4. Left hydronephrotic changes with no definite stones. 5. Constipation. 6. Bilateral pleural effusion with adjacent atelectasis. 7. Large left renal cyst. 8. Polycystic pancreas. 9. Bilateral fat containing inguinal hernias. CT 01/22/25 Multiple abscess anterior to the urinary bladder with minimal change since previous examination. Thickened wall of the urinary bladder with possible perforation (3) Abdominal pain: Qualifiers: Abdominal location: generalized Qualified Code(s): R10.84 - Generalized abdominal pain Code(s): R10.9 - Unspecified abdominal pain Status: Acute Assessment and Plan: Overall improved but more abdominal pain intermittently. Abdominal hyperactive. Had a BM. eating better. --Tylenol, Vicodin, --Schedule simethicone and bentyl prn for abdominal cramping (4) Acute on chronic anemia: Code(s): D64.9 - Anemia, unspecified Status: Acute Assessment and Plan: ACTIVE, improved, monitoring Acute, Blood count was trending down on heparin drip, s/p 2 units of PRBC's 01/14. Concern for acute GI bleeding but never had melena. Not planning intervention per discussion with family. No plan for scope. No report of hematoma on CT, but was not a CT angio --Follow blood count and transfuse as able for Hgb <7 --Blood count has been stable for several days --No report of melena (5) MRSA bacteremia: Code(s): R78.81 - Bacteremia; B95.62 - Methicillin resistant Staphylococcus aureus infection as the cause of diseases classified elsewhere Status: Acute Assessment and Plan: Recently treated for MRSA bacteremia, completed 01/13. TTE 01/03 no vegetations. Also treated for sacral pyoderma gangrenosum. Was seen by dermatology and recently completed a steroid taper --Follow up Blood cultures x2 01/15 No growth to date --Follow WBC, ESR, CRP, temps --Currently taking Cefepime IV, Flagyl and Doxy. Abx changed to Unasyn. discussed with Pharmacy team. (6) Sacral decubitus ulcer: Code(s): L89.159 - Pressure ulcer of sacral region, unspecified stage Status: Acute Assessment and Plan: -Wound care following. Recently treated with a course of steroids at the outside hospital per Dermatology recs for pyoderma gangrenosum -treating topical steroid spray and avoiding systemic steroids given infection (7) Thrombocytopenia: Code(s): D69.6 - Thrombocytopenia, unspecified Status: Acute Assessment and Plan: ACTIVE, stable, monitoring -Plt count 81-117 during admission. Up to 100. Recently on 4 weeks of linezolid which can cause pancytopenia, so changed to an alternate medication. Was stable on heparin drip. -patient now on lovenox -monitor CBC (8) Severe malnutrition: Code(s): E43 - Unspecified severe protein-calorie malnutrition Status: Acute Assessment and Plan: Supplements per dietitian (9) Electrolyte abnormality: Code(s): E87.8 - Other disorders of electrolyte and fluid balance, not elsewhere classified Status: Acute Assessment and Plan: ACTIVE 01/15 Potassium 3.1, Phos 1.9. 20meq Kcl, 15mmol kphos, and 250 kphos tabs BID x2 doses, 40meq IV 01/16 Potassium 3.1, 40meq x2. Mag 1.8 s/p 2G IV mag today. Phos 1.8, 20mmol 01/17-01/18 Potassium 3.2 40meq IV repeat 3.6 20meq IV today 01/19 Potassium 3.2. Schedule potassium 10 TID x2 days has low potassium will give po potassium --Follow potassium, mag, and phos --Has a poor appetite, eating bites --DC'd tele since no CPR L (10) Type 2 diabetes mellitus with hyperglycemia: Qualifiers: Diabetes mellitus correction insulin use: without correction use Qualified Code(s): E11.65 - Type 2 diabetes mellitus with hyperglycemia Code(s): E11.65 - Type 2 diabetes mellitus with hyperglycemia Status: Chronic Assessment and Plan: MONITORING Blood sugars --SSI prn (11) Constipation: Code(s): K59.00 - Constipation, unspecified Status: Acute Assessment and Plan: RESOLVED Personally reviewed CT and constipation visible. Had multiple BM's 01/16 --Continue miralax daily, bisacodyl suppository hs if no BM in 48 hours. (12) Lactic acidosis: Code(s): E87.20 - Acidosis, unspecified Status: Acute Assessment and Plan: RESOLVED significant lactic acidosis likely due to a combination of factors id metformin use,, decreased perfusion and or some hepatic dysfunction. The patient did have lactic acidosis during his last hospitalization that did not completely normalize. Lactic acid is definitely higher than prior values but this is in the setting of acute PE. Metformin is on hold. Patient's lactic acid did improve after 1 L fluid bolus. (13) Goals of care, counseling/discussion: Code(s): Z71.89 - Other specified counseling Status: Acute Assessment and Plan: ACTIVE DNR/DNI Plan Next of Kin, Vianney Moralez [phone] MEDICAL DECISION MAKING NARRATIVE -Patient seen and examined at bedside -Collaborated with patient's nurse and family at the bedside in detail and addressed all concerns -Labs, electrolytes, radiology, investigations and test results reviewed -ED/Consult/Nursing/Ancilliary notes on the chart reviewed and appreciated Patient has been admitted as observation status Subjective Date/time seen: 01/24/25 14:34 Interval history: Patient was seen and examined at bedside. he is feeling fine. has low appetite. did not work wit PT/OT today. repeat CT abd today. did not work with PT/OT yesterday. he and his asking to work with PT/OT today. hypokalemia, will give po potassium. 01/23/25 Patient was seen and examined at bedside. he is sleeping comfortably. reviewed Ct abd with her daughter at bedside.Multiple abscess anterior to the urinary bladder with minimal change since previous examination. Thickened wall of the urinary bladder with possible perforation waiting for his family discussion about goal of care. 01/24/25 Patient was seen and examined at bedside. he is feeling better. no acute event over night. discussed with his at bedside. we will see how he is doing with PT/OT. Review of Systems Review of Systems: Review of systems unobtainable due to patient's dementia Exam Narrative: GENERAL: Comfortable, no acute distress HENMT: moist mucous membranes RESPIRATORY: clear to auscultation, no increased respiratory effort CARDIO: Regular rate and rhythm GI: soft, bowel sounds present, tenderness to palpation in all 4 quadrants SKIN/EXTREMITIES: no rashes, no edema, no redness or tenderness, muscle wasting NEURO: answers questions appropriately, A&O x4 Const: Other: Acutely ill-appearing, debilitated, deconditioned HENMT: Other: Mucous membranes are dry, no oral pharyngeal erythema, crowded posterior oropharynx Eyes: Other: Marked conjunctival pallor, no scleral icterus, bilateral lens implants noted Neck: Other: No JVD, no lymphadenopathy Resp: Other: shallow respirations, no increased work of breathing Cardio: Other: Irregularly irregular, rate controlled, 2+ bilateral radial and pedal pulses GI: Other: Soft, slightly distended, nontender, hypoactive bowel sounds : Other: Nuñez catheter in place with clear yellow urine, scrotal edema Skin: Other: Generalized pallor, non jaundice, he numerous scattered superficial hematomas Neuro: Other: Patient is alert oriented to person and the fact that he is in the hospital, no localizing neurologic deficits noted but exam limited Extrem: Other: Marked pitting edema of the left lower extremity up through the knee and , edema of the right hand wrist and forearm, edema of the left upper extremity, Psych: Other: Pleasantly confused, cooperative, poor judgment and insight Objective Data Vital Signs Vital Signs: Vital Signs - 24 hr 01/23/25 20:00 01/23/25 20:25 01/23/25 21:31 Temperature 97.4 F L Pulse Rate 107 H 107 H Respiratory Rate 20 20 Blood Pressure 103/63 Pulse Oximetry 95 95 95 Oxygen Delivery Room Air Room Air Fraction of Inspired Oxygen 21 01/24/25 04:55 01/24/25 09:30 01/24/25 11:28 Temperature 97.2 F L Pulse Rate 66 Respiratory Rate 20 Blood Pressure 127/59 L Pulse Oximetry 100 94 Oxygen Delivery Room Air Room Air Fraction of Inspired Oxygen Intake/Output Intake/Output: Intake & Output 01/21/25 01/22/25 01/23/25 01/24/25 23:59 23:59 23:59 23:59 Intake Total 350 1061 950 620 Output Total 5841 0577 1325 775 [facility] -[phone] Meds/Results Medications: Active Medications Generic Name Dose Route Start Last Admin Trade Name Freq PRN Reason Stop Dose Admin Acetaminophen 650 mg 01/12/25 21:07 01/18/25 12:02 Acetaminophen 325 Mg Tablet PO 650 mg Q6H PRN Administration pain 1-3 or fever Hydrocodone Bitart/Acetaminophen 1 tab 01/13/25 09:00 01/24/25 09:17 Hydrocodone/Acetaminophen (*Crx) 5-325 Mg Tablet PO 1 tab Q6H NEHEMIAH Administration Aspirin 81 mg 01/13/25 09:00 01/24/25 09:18 Aspirin 81 Mg Enteric Tablet PO 81 mg DAILY NEHEMIAH Administration Bisacodyl 10 mg 01/17/25 21:00 01/23/25 21:42 Bisacodyl 10 Mg Suppository RECTAL 10 mg HS NEHEMIAH Administration Calcium Carbonate 500 mg 01/17/25 12:00 01/24/25 11:53 Calcium/Vitamin D 500 Mg/5 Mcg (200 I.U.) Tablet PO 500 mg DAILY@1200 NEHEMIAH Administration Dextrose 12.5 gm 01/13/25 02:29 Dextrose 50% 25 Gm/50 Ml Syringe IV PUSH PRN PRN Hypoglycemia Protocol Dibucaine 1 applic 01/12/25 21:07 01/17/25 21:13 Dibucaine 1% Ointment 30 Gm Tube TOPICAL 1 applic QID PRN Administration Pain of groin ulcer Dicyclomine HCl 20 mg 01/18/25 12:32 01/19/25 09:05 Dicyclomine Hcl 10 Mg Capsule PO 20 mg QID PRN Administration Abdominal Cramping Donepezil HCl 5 mg 01/12/25 21:10 01/23/25 21:43 Donepezil Hcl 5 Mg Tablet PO 5 mg QHS NEHEMIAH Administration Doxazosin Mesylate 2 mg 01/12/25 21:25 01/23/25 21:42 Doxazosin Mesylate 2 Mg Tablet PO 2 mg QHS NEHEMIAH Administration Doxycycline Hyclate 100 mg 01/17/25 09:00 01/24/25 09:17 Doxycycline Hyclate 100 Mg Tablet PO 100 mg Q12HR NEHEMIAH Administration Dutasteride 0.5 mg 01/13/25 09:00 01/24/25 09:18 Dutasteride 0.5 Mg Capsule PO 0.5 mg DAILY NEHEMIAH Administration Enoxaparin Sodium 90 mg 01/19/25 09:00 01/24/25 09:16 Enoxaparin 100 Mg/Ml Syringe SUB-Q 90 mg Q12HR NEHEMIAH Administration Fluticasone Propionate 1 spray 01/15/25 21:00 01/23/25 21:43 Fluticasone Propionate 0.05% Na Spr 16 Gm Btl (*Bkc) XX 1 spray Q12H NEHEMIAH Administration Fluticasone Propionate 1 spray 01/18/25 10:04 Fluticasone Propionate 0.05% Na Spr 16 Gm Btl (*Bkc) NASAL Q12HR PRN allergy symptoms Glucagon 1 mg 01/13/25 02:29 Glucagon For Inj 1 Mg Vial IM PRN PRN Hypoglycemia Protocol Glucose 15 gm 01/13/25 02:29 Glucose Oral Gel 15 Gm Of Glucse In 37.5 Gm Tube PO PRN PRN Hypoglycemia Protocol Dextrose 1,000 mls @ 100 mls/hr 01/13/25 02:29 Dextrose 5% 1,000 Ml IVPB PRN PRN Hypoglycemia Protocol Albumin Human 200 mls @ 60 mls/hr 01/16/25 01:00 01/19/25 01:10 Albutein IVPB 60 mls/hr Q8H NEHEMIAH Administration Ampicillin Sodium/Sulbactam 100 mls @ 200 mls/hr 01/23/25 12:00 01/24/25 11:52 Sodium 3 gm/ Sodium Chloride IVPB 200 mls/hr Q6H NEHEMIAH Administration Insulin Aspart 2 - 5 units 01/13/25 08:00 01/24/25 12:09 Insulin Aspart (*Bkc) 100 Units/Ml SUB-Q Not Given TIDWM NEHEMIAH Protocol Levothyroxine Sodium 75 mcg 01/13/25 06:30 01/24/25 06:14 Levothyroxine Sodium 75 Mcg Tablet PO 75 mcg DAILY@0630 NEHEMIAH Administration Metoclopramide HCl 5 mg 01/17/25 16:30 01/24/25 11:52 Metoclopramide Hcl Inj 10 Mg/2 Ml Vial IV PUSH 5 mg TIDAC NEHEMIAH Administration Metoprolol Succinate 25 mg 01/13/25 09:00 01/24/25 09:18 Metoprolol Succinate Ext Rel 25 Mg Tabcr PO 25 mg DAILY NEHEMIAH Administration Miconazole Nitrate 1 applic 01/13/25 09:00 01/23/25 21:43 Miconazole Nitrate 2% Cream 30 Gm Tube TOPICAL 1 applic Q12HR NEHEMIAH Administration Miscellaneous Information 1 each 01/22/25 00:01 01/23/25 09:30 Please Renew Iuka And Miconazole. Per [employer] Procedure, It Will Discontinue If Not Isaiah XX 02/21/25 00:00 1 each CLARIFY NEHEMIAH Administration Morphine Sulfate 4 mg 01/15/25 18:57 01/24/25 12:34 Morphine Sulfate (*Crx) 4 Mg/Ml Inj IV PUSH 4 mg Q2H PRN Administration Pain Rated 9-10 Morphine Sulfate 2 mg 01/15/25 18:57 01/23/25 07:04 Morphine Sulfate (*Crx) 2 Mg/Ml Inj IV PUSH 2 mg Q2H PRN Administration Pain Rated 7-8 Pantoprazole Sodium 40 mg 01/17/25 21:00 01/24/25 09:18 Pantoprazole 40 Mg Tablet PO 40 mg Q12HR NEHEMIAH Administration Potassium Chloride 40 meq 01/24/25 09:00 01/24/25 12:09 Potassium Chloride 20 Meq Packet (For Liquid) PO Not Given TID NEHEMIAH Senna/Docusate Sodium 2 tab 01/13/25 09:00 01/24/25 09:17 Senna/Docusate Sodium Tablet PO 2 tab Q12HR NEHEMIAH Administration Simethicone 125 mg 01/18/25 16:30 01/24/25 11:53 Simethicone 125 Mg Chew Tab PO 125 mg ACHS NEHEMIAH Administration Radiology Results: ITS Impressions Chest CTA 01/12/25 16:59 IMPRESSION: Multiple pulmonary emboli, large clot burden, and evidence of right heart strain. Trace right and small left pleural effusions. 4 mm right upper lobe pulmonary nodule, consider an optional follow-up low-dose noncontrast CT of the chest in one year if the patient is at high risk. Gallbladder hydrops, likely secondary to fasting the absence of right upper quadrant pain or biliary labs abnormalities. Innumerable pancreatic cysts, which may represent the sequela of chronic pancreatitis, or less likely the uncommon diagnosis of isolated polycystic pancreatic disease. Correlate for pancreatic enzyme abnormalities and any symptoms of vague abdominal pain. Consider nonemergent MRI of the pancreas if there are abdominal symptoms. Results reported telephonically to Dr. Haque by Dr. Barry at 5:19 PM on 01/12/2025. Abdomen/Pelvis CT 01/15/25 19:18 IMPRESSION: 1. Multiple abscesses seen anterior to the urinary bladder. 2. Thickened wall of the gallbladder suggestive of cystitis. 3. Free fluid seen in the pelvis and paracolic gutters. 4. Left hydronephrotic changes with no definite stones. 5. Constipation. 6. Bilateral pleural effusion with adjacent atelectasis. 7. Large left renal cyst. 8. Polycystic pancreas. 9. Bilateral fat containing inguinal hernias. Chest/Abdomen/Pelvis CT 01/22/25 16:17 IMPRESSION: CHEST: 1. Bilateral large pleural effusion with adjacent atelectasis versus pneumonia 2. Atelectasis versus pneumonia in the lingula.. ABDOMEN/PELVIS: 1. No evidence of appendicitis, diverticulitis or intestinal obstruction. 2. Multiple abscess anterior to the urinary bladder with minimal change since previous examination. Thickened wall of the urinary bladder with possible perforation. 3. Polycystic pancreas. 4. Left hydronephrotic changes and left renal cyst. 5. Constipation. 6. Bilateral inguinal fat containing hernia. 7. Distended gallbladder with no definite stones. Labs Labs: Laboratory Results - last 24 hr 01/23/25 01/23/25 01/24/25 16:36 20:27 05:52 WBC 6.0 RBC 2.95 L Hgb 8.8 L Hct 28.5 L MCV 96.6 MCH 29.8 MCHC 30.9 L RDW 22.5 H Plt Count 221 MPV 9.9 Immature Gran % (Auto) 1.5 H Neut % (Auto) 66.8 Lymph % (Auto) 22.7 Antelope % (Auto) 7.0 Eos % (Auto) 1.3 Baso % (Auto) 0.7 Lymph # (Auto) 1.36 Antelope # (Auto) 0.4 Eos # (Auto) 0.1 Baso # (Auto) 0.0 Abs Immat Gran (auto) 0.09 H Absolute Neuts (auto) 4.0 Absolute Nucleated RBC 0.000 Band Neutrophils % Not Reportable Nucleated RBC % 0.0 Platelet Estimate Adequate Anisocytosis 1+ Schistocytes None seen Sodium 145 Potassium 2.8 L* Chloride 115 H Carbon Dioxide 21 L Anion Gap 9 BUN 18 Creatinine 0.61 L Estim Creat Clear Calc 88 Estimated GFR > 60 Glucose 116 H POC Capillary Glucose 127 H 137 H Calcium 10.1 Magnesium 2.1 01/24/25 01/24/25 01/24/25 07:49 11:40 12:09 WBC RBC Hgb Hct MCV MCH MCHC RDW Plt Count MPV Immature Gran % (Auto) Neut % (Auto) Lymph % (Auto) Antelope % (Auto) Eos % (Auto) Baso % (Auto) Lymph # (Auto) Antelope # (Auto) Eos # (Auto) Baso # (Auto) Abs Immat Gran (auto) Absolute Neuts (auto) Absolute Nucleated RBC Band Neutrophils % Nucleated RBC % Platelet Estimate Anisocytosis Schistocytes Sodium 147 H Potassium 3.4 Chloride 115 H Carbon Dioxide 23 Anion Gap 9 BUN 16 Creatinine 0.62 L Estim Creat Clear Calc 87 Estimated GFR > 60 Glucose 124 H POC Capillary Glucose 130 H 130 H Calcium 10.2 Magnesium Quality VTE Prophylaxis VTE prophylaxis: mechanical ordered and pharmacologic ordered
[2025-01-24] MEDS: MICONAZOLE NITRATE 2% CREAM 30 GM TUBE 1 APPLIC TOPICAL (15:36)
[2025-01-24] MEDS: FLUTICASONE PROPIONATE 0.05% NA SPR 16 GM BTL (*BKC) 1 SPRAY XX (15:36)
[2025-01-24 20:40] VITALS: BP 136/51; PULSE 103; RESP 18; TEMP 36.1; O2SAT 96
--- NOTE | 2025-01-24 23:24 | PC.NURSE ---
Pt took doxycycline 100mg PO and then refused all other 2100 medications including, simethicone 125mg PO, Protonix 40mg PO, Senokot 2 tabs PO, Donepezil 5 mg PO, Cardura 2mg PO, [place] 5 PO and Lovenox 90mg subq. Pt was AxOx3 he correctly answered where he was, the date and his name. I educated him on the medications he refused and pt said he understood and still refused.
[2025-01-25] MEDS: AMPICILLIN SODIUM/SULBACTAM 3 GM in SODIUM CHLORIDE 0.9% IV 100 ML 200 ML IVPB ×4 (00:41→17:00)
[2025-01-25 05:00] VITALS: BP 144/66; PULSE 107; RESP 18; TEMP 36.9; O2SAT 99
[2025-01-25 06:03] LABS: Hematocrit 31.2 % (42.0-52.0); Hemoglobin 9.7 g/dL (14.0-18.0); Immature Granulocyte Percent A 1.5 % (0-0.5); Lymphocytes Absolute Auto 1.42 K/mm3 (0.9-3.2); Mean Corpuscular HGB Conc 31.1 g/dl (32-36); Mean Corpuscular Hemoglobin 30.1 pg (26-34); Mean Corpuscular Volume 96.9 fl (80-100); Nucleated Red Blood Cells Absolute Auto 0.000 K/mm3 (0.0-0.012); Nucleated Red Blood Cells Perc 0.0 % (0.0-0.2); Platelet Count Result 254 k/mm3 (150-375); Red Blood Count 3.22 M/mm3 (4.6-6.20); White Blood Count 7.4 K/mm3 (4.5-10.0)
[2025-01-25] MEDS: METOCLOPRAMIDE HCL INJ 10 MG/2 ML VIAL 5 MG IV PUSH ×3 (06:14→16:53)
[2025-01-25] MEDS: LEVOTHYROXINE SODIUM 75 MCG TABLET PO (06:19)
[2025-01-25] MEDS: SIMETHICONE 125 MG CHEW TAB PO ×4 (06:20→20:45)
[2025-01-25 06:31] LABS: Anion Gap 11 mmol/L (4-12); Blood Urea Nitrogen 16 mg/dL (9-20); Calcium 9.9 mg/dL (8.4-10.2); Carbon Dioxide 20 mmol/L (22-30); Chloride 115 mmol/L (98-107); Estimated CRCL calculation 80 ml/min; Estimated Glomerular Filt Rate > 60; Glucose 112 mg/dL (65-110); Potassium 3.0 mmol/L (3.4-5.0); Sodium 146 mmol/L (137-145)
[2025-01-25 06:38] LABS: Anisocytosis 1+; Burr Cells 1+; Ovalocytes 1+; Schistocytes None Seen
[2025-01-25] MEDS: POTASSIUM CHLORIDE 20 MEQ PACKET (FOR LIQUID) 40 MEQ PO ×2 (08:48→16:54)
[2025-01-25] MEDS: KCL 20 MEQ/SW 100 ML 100 ML 50 MEQ IVPB (08:52)
[2025-01-25] MEDS: ENOXAPARIN 100 MG/ML SYRINGE 90 MG SUB-Q ×2 (09:07→20:46)
[2025-01-25 09:09] VITALS: PULSE 112
[2025-01-25] MEDS: DUTASTERIDE 0.5 MG CAPSULE PO (09:09)
[2025-01-25] MEDS: DOXYCYCLINE HYCLATE 100 MG TABLET PO ×2 (09:09→20:46)
[2025-01-25] MEDS: METOPROLOL SUCCINATE EXT REL 25 MG TABCR PO (09:09)
[2025-01-25] MEDS: PANTOPRAZOLE 40 MG TABLET PO ×2 (09:09→20:45)
[2025-01-25] MEDS: HYDROcodone/acetaminophen (*CRX) 5-325 MG TABLET 1 TAB PO ×3 (09:09→20:45)
[2025-01-25] MEDS: FLUTICASONE PROPIONATE 0.05% NA SPR 16 GM BTL (*BKC) 1 SPRAY XX ×2 (09:10→21:41)
[2025-01-25] MEDS: ASPIRIN 81 MG ENTERIC TABLET PO (09:10)
[2025-01-25] MEDS: MICONAZOLE NITRATE 2% CREAM 30 GM TUBE 1 APPLIC TOPICAL ×2 (09:10→21:41)
[2025-01-25] MEDS: CALCIUM/VITAMIN D 500 MG/5 MCG (200 I.U.) TABLET PO (11:35)
--- NOTE | 2025-01-25 12:23 | P.PNIM_ITS ---
Progress Note: A&P Assessment and Plan (1) Pulmonary embolism: Qualifiers: Acute cor pulmonale presence: with acute cor pulmonale Chronicity: acute Pulmonary embolism type: unspecified Qualified Code(s): I26.09 - Other pulmonary embolism with acute cor pulmonale Code(s): I26.99 - Other pulmonary embolism without acute cor pulmonale Status: Acute Assessment and Plan: ACTIVE, improved, monitoring Right heart strain on CT 01/15. Recent diagnosis of DVT at [facility], was on Eliquis. Not requiring oxygen. Tachycardia resolved. DNR/DNI. Spoke with his daughter and his at the bedside and the patient 01/18 TTE no evidence of heart strain -On a heparin drip from 01/15-01/19 for concern for bleeding. Hgb has ranged from 7.1-8.1 the last couple days Acute drop on 01/14 (7.9>5.4 and received 2 unit PRBC's) No report of acute blood loss or melena. -Changed to Lovenox 01/19 Hb has been stable Spoke with family members daily ( and daughter) and aggressive interventions not goals of care. Declined option for transfer to higher acuity, but that is appropriate because goals of care primarily palliative with limited interventions. Giving blood for Hgb <7 --Readdress palliative care or hospice if new hemodynamic changes (2) Abdominal abscess: Status: Acute Assessment and Plan: ACTIVE, acute Recent bladder rupture, treated at [place]. CT abd/pelvis at OSH 01/08 showed evolving sequelae of extraperitoneal bladder rupture within an capsulated mixed gas-fluid collection in the space Retzius and fluid component of which is decreased in size compared to prior examination in continuity with the anterior urinary bladder wall defect fluid directing subjacent to the rectus abdominus musculature no new organized or drainable fluid collection to partially imaged subsegmental bilateral pulmonary emboli as previously seen on the prior CT from 12/27 had been treated with Zosyn, Flagyl and Vanc, then cefepime and Vanc. Was seen by ID at OSH. DC'd cefepime and vanc & started linezolid on 01/03 and completed 4 weeks of treatment of MRSA bacteremia -Spoke with family and not pursuing surgical options given comorbidities -Suspect suprapubic pain 2/2 abscess and suspect generalized pain related to abdominal distention so started simethicone and bentyl prn --01/15 Started empiric Cefepime, Flagyl. Changed zyvox to doxycycline for thrombocytopenia. Repeat CT CAP in about a week (01/22) to monitor abscess on current antibiotics before deciding end date. Consider a 3 week course and outpatient ID follow up at the [facility] if improving [phone] --Pain control: Tylenol, [place], Dilaudid prn. Ideally would limit opiates for gastric distention/bloating but will continue for abdominal abscess/recent bladder perforation --Follow daily CBC. Weekly CRP & ESR --Do not remove Nuñez except with urology consultation. No acute indication for urology consultation because no plan for interventions at this point CT CAP 01/15 1. Multiple abscesses seen anterior to the urinary bladder. 2. Thickened wall of the gallbladder suggestive of cystitis. 3. Free fluid seen in the pelvis and paracolic gutters. 4. Left hydronephrotic changes with no definite stones. 5. Constipation. 6. Bilateral pleural effusion with adjacent atelectasis. 7. Large left renal cyst. 8. Polycystic pancreas. 9. Bilateral fat containing inguinal hernias. CT 01/22/25 Multiple abscess anterior to the urinary bladder with minimal change since previous examination. Thickened wall of the urinary bladder with possible perforation (3) Abdominal pain: Qualifiers: Abdominal location: generalized Qualified Code(s): R10.84 - Generalized abdominal pain Code(s): R10.9 - Unspecified abdominal pain Status: Acute Assessment and Plan: Overall improved but more abdominal pain intermittently. Abdominal hyperactive. Had a BM. eating better. --Tylenol, Vicodin, --Schedule simethicone and bentyl prn for abdominal cramping (4) Acute on chronic anemia: Code(s): D64.9 - Anemia, unspecified Status: Acute Assessment and Plan: ACTIVE, improved, monitoring Acute, Blood count was trending down on heparin drip, s/p 2 units of PRBC's 01/14. Concern for acute GI bleeding but never had melena. Not planning intervention per discussion with family. No plan for scope. No report of hematoma on CT, but was not a CT angio --Follow blood count and transfuse as able for Hgb <7 --Blood count has been stable for several days --No report of melena (5) MRSA bacteremia: Code(s): R78.81 - Bacteremia; B95.62 - Methicillin resistant Staphylococcus aureus infection as the cause of diseases classified elsewhere Status: Acute Assessment and Plan: Recently treated for MRSA bacteremia, completed 01/13. TTE 01/03 no vegetations. Also treated for sacral pyoderma gangrenosum. Was seen by dermatology and recently completed a steroid taper --Follow up Blood cultures x2 01/15 No growth to date --Follow WBC, ESR, CRP, temps --Currently taking Cefepime IV, Flagyl and Doxy. Abx changed to Unasyn. discussed with Pharmacy team. (6) Sacral decubitus ulcer: Code(s): L89.159 - Pressure ulcer of sacral region, unspecified stage Status: Acute Assessment and Plan: -Wound care following. Recently treated with a course of steroids at the outside hospital per Dermatology recs for pyoderma gangrenosum -treating topical steroid spray and avoiding systemic steroids given infection (7) Thrombocytopenia: Code(s): D69.6 - Thrombocytopenia, unspecified Status: Acute Assessment and Plan: ACTIVE, stable, monitoring -Plt count 81-117 during admission. Up to 100. Recently on 4 weeks of linezolid which can cause pancytopenia, so changed to an alternate medication. Was stable on heparin drip. -patient now on lovenox -monitor CBC (8) Severe malnutrition: Code(s): E43 - Unspecified severe protein-calorie malnutrition Status: Acute Assessment and Plan: Supplements per dietitian (9) Electrolyte abnormality: Code(s): E87.8 - Other disorders of electrolyte and fluid balance, not elsewhere classified Status: Acute Assessment and Plan: ACTIVE 01/15 Potassium 3.1, Phos 1.9. 20meq Kcl, 15mmol kphos, and 250 kphos tabs BID x2 doses, 40meq IV 01/16 Potassium 3.1, 40meq x2. Mag 1.8 s/p 2G IV mag today. Phos 1.8, 20mmol 01/17-01/18 Potassium 3.2 40meq IV repeat 3.6 20meq IV today 01/19 Potassium 3.2. Schedule potassium 10 TID x2 days has low potassium will give po potassium --Follow potassium, mag, and phos --Has a poor appetite, eating bites --DC'd tele since no CPR 01/25/25 patient can not tolerate IV potassium, continue with Po potassium (10) Type 2 diabetes mellitus with hyperglycemia: Qualifiers: Diabetes mellitus custodial insulin use: without computer terminal operator use Qualified Code(s): E11.65 - Type 2 diabetes mellitus with hyperglycemia Code(s): E11.65 - Type 2 diabetes mellitus with hyperglycemia Status: Chronic Assessment and Plan: MONITORING Blood sugars --SSI prn (11) Constipation: Code(s): K59.00 - Constipation, unspecified Status: Acute Assessment and Plan: RESOLVED Personally reviewed CT and constipation visible. Had multiple BM's 01/16 --Continue miralax daily, bisacodyl suppository hs if no BM in 48 hours. (12) Lactic acidosis: Code(s): E87.20 - Acidosis, unspecified Status: Acute Assessment and Plan: RESOLVED significant lactic acidosis likely due to a combination of factors id metformin use,, decreased perfusion and or some hepatic dysfunction. The patient did have lactic acidosis during his last hospitalization that did not completely normalize. Lactic acid is definitely higher than prior values but this is in the setting of acute PE. Metformin is on hold. Patient's lactic acid did improve after 1 L fluid bolus. (13) Goals of care, counseling/discussion: Code(s): Z71.89 - Other specified counseling Status: Acute Assessment and Plan: ACTIVE DNR/DNI Plan Next of Kin, Vianney Moralez [phone] MEDICAL DECISION MAKING NARRATIVE -Patient seen and examined at bedside -Collaborated with patient's nurse and family at the bedside in detail and addressed all concerns -Labs, electrolytes, radiology, investigations and test results reviewed -ED/Consult/Nursing/Ancilliary notes on the chart reviewed and appreciated Patient has been admitted as observation status Subjective Date/time seen: 01/25/25 12:23 Interval history: Patient was seen and examined at bedside. he is feeling fine. has low appetite. did not work wit PT/OT today. repeat CT abd today. did not work with PT/OT yesterday. he and his asking to work with PT/OT today. hypokalemia, will give po potassium. 7/17/25 Patient was seen and examined at bedside. he is sleeping comfortably. reviewed Ct abd with her daughter at bedside.Multiple abscess anterior to the urinary bladder with minimal change since previous examination. Thickened wall of the urinary bladder with possible perforation waiting for his family discussion about goal of care. 01/24/25 Patient was seen and examined at bedside. he is feeling better. no acute event over night. discussed with his at bedside. we will see how he is doing with PT/OT. 01/25/25 Patient was seen and examined at bedside. he is feeling better. he could not tolerate Iv potassium, was discontinued. continue with Po potassium. denies cheat pain abd pain. N/V. Review of Systems Review of Systems: Review of systems unobtainable due to patient's dementia Exam Narrative: GENERAL: Comfortable, no acute distress HENMT: moist mucous membranes RESPIRATORY: clear to auscultation, no increased respiratory effort CARDIO: Regular rate and rhythm GI: soft, bowel sounds present, tenderness to palpation in all 4 quadrants SKIN/EXTREMITIES: no rashes, no edema, no redness or tenderness, muscle wasting NEURO: answers questions appropriately, A&O x4 Const: Other: Acutely ill-appearing, debilitated, deconditioned HENMT: Other: Mucous membranes are dry, no oral pharyngeal erythema, crowded posterior oropharynx Eyes: Other: Marked conjunctival pallor, no scleral icterus, bilateral lens implants noted Neck: Other: No JVD, no lymphadenopathy Resp: Other: shallow respirations, no increased work of breathing Cardio: Other: Irregularly irregular, rate controlled, 2+ bilateral radial and pedal pulses GI: Other: Soft, slightly distended, nontender, hypoactive bowel sounds : Other: Nuñez catheter in place with clear yellow urine, scrotal edema Skin: Other: Generalized pallor, non jaundice, he numerous scattered superficial hematomas Neuro: Other: Patient is alert oriented to person and the fact that he is in the hospital, no localizing neurologic deficits noted but exam limited Extrem: Other: Marked pitting edema of the left lower extremity up through the knee and , edema of the right hand wrist and forearm, edema of the left upper extremity, Psych: Other: Pleasantly confused, cooperative, poor judgment and insight Objective Data Vital Signs Vital Signs: Vital Signs - 24 hr 01/24/25 14:00 01/24/25 20:40 01/25/25 05:00 Temperature 97.3 F L 97 F L 98.5 F Pulse Rate 58 L 103 H 107 H Respiratory Rate 16 18 18 Blood Pressure 118/68 136/51 L 144/66 H Pulse Oximetry 99 96 99 01/25/25 09:09 Temperature Pulse Rate 112 H Respiratory Rate Blood Pressure Pulse Oximetry Intake/Output Intake/Output: Intake & Output 01/22/25 01/23/25 01/24/25 01/25/25 23:59 23:59 23:59 23:59 Intake Total 1061 950 920 500 Output Total 1850 8490 1426 [address] [facility] -[phone] Meds/Results Medications: Active Medications Generic Name Dose Route Start Last Admin Trade Name Freq PRN Reason Stop Dose Admin Acetaminophen 650 mg 01/12/25 21:07 01/18/25 12:02 Acetaminophen 325 Mg Tablet PO 650 mg Q6H PRN Administration pain 1-3 or fever Hydrocodone Bitart/Acetaminophen 1 tab 01/13/25 09:00 01/25/25 09:09 Hydrocodone/Acetaminophen (*Crx) 5-325 Mg Tablet PO 1 tab Q6H NEHEMIAH Administration Aspirin 81 mg 01/13/25 09:00 01/25/25 09:10 Aspirin 81 Mg Enteric Tablet PO 81 mg DAILY [facility] Administration Bisacodyl 10 mg 01/17/25 21:00 01/24/25 21:45 Bisacodyl 10 Mg Suppository RECTAL Not Given [facility] Calcium Carbonate 500 mg 01/17/25 12:00 01/25/25 11:35 Calcium/Vitamin D 500 Mg/5 Mcg (200 I.U.) Tablet PO 500 mg DAILY@1200 [facility] Administration Dextrose 12.5 gm 01/13/25 02:29 Dextrose 50% 25 Gm/50 Ml Syringe IV PUSH PRN PRN Hypoglycemia Protocol Dibucaine 1 applic 01/12/25 21:07 01/17/25 21:13 Dibucaine 1% Ointment 30 Gm Tube TOPICAL 1 applic QID PRN Administration Pain of groin ulcer Dicyclomine HCl 20 mg 01/18/25 12:32 01/19/25 09:05 Dicyclomine Hcl 10 Mg Capsule PO 20 mg QID PRN Administration Abdominal Cramping Donepezil HCl 5 mg 01/12/25 21:10 01/24/25 23:22 Donepezil Hcl 5 Mg Tablet PO Not Given QHS NEHEMIAH Doxazosin Mesylate 2 mg 01/12/25 21:25 01/24/25 23:23 Doxazosin Mesylate 2 Mg Tablet PO Not Given QHS NEHEMIAH Doxycycline Hyclate 100 mg 01/17/25 09:00 01/25/25 09:09 Doxycycline Hyclate 100 Mg Tablet PO 100 mg Q12HR NEHEMIAH Administration Dutasteride 0.5 mg 01/13/25 09:00 01/25/25 09:09 Dutasteride 0.5 Mg Capsule PO 0.5 mg DAILY NEHEMIAH Administration Enoxaparin Sodium 90 mg 01/19/25 09:00 01/25/25 09:07 Enoxaparin 100 Mg/Ml Syringe SUB-Q 90 mg Q12HR NEHEMIAH Administration Fluticasone Propionate 1 spray 01/15/25 21:00 01/25/25 09:10 Fluticasone Propionate 0.05% Na Spr 16 Gm Btl (*Bkc) XX 1 spray Q12H NEHEMIAH Administration Fluticasone Propionate 1 spray 01/18/25 10:04 Fluticasone Propionate 0.05% Na Spr 16 Gm Btl (*Bkc) NASAL Q12HR PRN allergy symptoms Glucagon 1 mg 01/13/25 02:29 Glucagon For Inj 1 Mg Vial IM PRN PRN Hypoglycemia Protocol Glucose 15 gm 01/13/25 02:29 Glucose Oral Gel 15 Gm Of Glucse In 37.5 Gm Tube PO PRN PRN Hypoglycemia Protocol Dextrose 1,000 mls @ 100 mls/hr 01/13/25 02:29 Dextrose 5% 1,000 Ml IVPB PRN PRN Hypoglycemia Protocol Albumin Human 200 mls @ 60 mls/hr 01/16/25 01:00 01/19/25 01:10 Albutein IVPB 60 mls/hr Q8H NEHEMIAH Administration Ampicillin Sodium/Sulbactam 100 mls @ 200 mls/hr 01/23/25 12:00 01/25/25 11:53 Sodium 3 gm/ Sodium Chloride IVPB 200 mls/hr Q6H NEHEMIAH Administration Insulin Aspart 2 - 5 units 01/13/25 08:00 01/25/25 11:55 Insulin Aspart (*Bkc) 100 Units/Ml SUB-Q Not Given TIDWM NEHEMIAH Protocol Levothyroxine Sodium 75 mcg 01/13/25 06:30 01/25/25 06:19 Levothyroxine Sodium 75 Mcg Tablet PO 75 mcg DAILY@0630 NEHEMIAH Administration Metoclopramide HCl 5 mg 01/17/25 16:30 01/25/25 11:37 Metoclopramide Hcl Inj 10 Mg/2 Ml Vial IV PUSH 5 mg TIDAC NEHEMIAH Administration Metoprolol Succinate 25 mg 01/13/25 09:00 01/25/25 09:09 Metoprolol Succinate Ext Rel 25 Mg Tabcr PO 25 mg DAILY NEHEMIAH Administration Miconazole Nitrate 1 applic 01/13/25 09:00 01/25/25 09:10 Miconazole Nitrate 2% Cream 30 Gm Tube TOPICAL 1 applic Q12HR NEHEMIAH Administration Miscellaneous Information 1 each 01/22/25 00:01 01/23/25 09:30 Please Renew [place] And Miconazole. Per [employer] Procedure, It Will Discontinue If Not Isaiah XX 02/21/25 00:00 1 each CLARIFY NEHEMIAH Administration Miscellaneous Information 1 each 01/25/25 00:01 Morphine Needs To Be Renewed Or It Will Automatically Discontinue. XX 02/24/25 00:00 CLARIFY NEHEMIAH Morphine Sulfate 4 mg 01/15/25 18:57 01/24/25 18:22 Morphine Sulfate (*Crx) 4 Mg/Ml Inj IV PUSH 4 mg Q2H PRN Administration Pain Rated 9-10 Morphine Sulfate 2 mg 01/15/25 18:57 01/23/25 07:04 Morphine Sulfate (*Crx) 2 Mg/Ml Inj IV PUSH 2 mg Q2H PRN Administration Pain Rated 7-8 Pantoprazole Sodium 40 mg 01/17/25 21:00 01/25/25 09:09 Pantoprazole 40 Mg Tablet PO 40 mg Q12HR NEHEMIAH Administration Potassium Chloride 40 meq 01/24/25 09:00 01/25/25 12:08 Potassium Chloride 20 Meq Packet (For Liquid) PO Not Given TID NEHEMIAH Senna/Docusate Sodium 2 tab 01/13/25 09:00 01/25/25 09:14 Senna/Docusate Sodium Tablet PO Not Given Q12HR NEHEMIAH Simethicone 125 mg 01/18/25 16:30 01/25/25 11:35 Simethicone 125 Mg Chew Tab PO 125 mg ACHS NEHEMIAH Administration Radiology Results: ITS Impressions Chest CTA 01/12/25 16:59 IMPRESSION: Multiple pulmonary emboli, large clot burden, and evidence of right heart strain. Trace right and small left pleural effusions. 4 mm right upper lobe pulmonary nodule, consider an optional follow-up low-dose noncontrast CT of the chest in one year if the patient is at high risk. Gallbladder hydrops, likely secondary to fasting the absence of right upper quadrant pain or biliary labs abnormalities. Innumerable pancreatic cysts, which may represent the sequela of chronic pancreatitis, or less likely the uncommon diagnosis of isolated polycystic pancreatic disease. Correlate for pancreatic enzyme abnormalities and any symptoms of vague abdominal pain. Consider nonemergent MRI of the pancreas if there are abdominal symptoms. Results reported telephonically to Dr. Haque by Dr. Barry at 5:19 PM on 01/12/2025. Abdomen/Pelvis CT 01/15/25 19:18 IMPRESSION: 1. Multiple abscesses seen anterior to the urinary bladder. 2. Thickened wall of the gallbladder suggestive of cystitis. 3. Free fluid seen in the pelvis and paracolic gutters. 4. Left hydronephrotic changes with no definite stones. 5. Constipation. 6. Bilateral pleural effusion with adjacent atelectasis. 7. Large left renal cyst. 8. Polycystic pancreas. 9. Bilateral fat containing inguinal hernias. Chest/Abdomen/Pelvis CT 01/22/25 16:17 IMPRESSION: CHEST: 1. Bilateral large pleural effusion with adjacent atelectasis versus pneumonia 2. Atelectasis versus pneumonia in the lingula.. ABDOMEN/PELVIS: 1. No evidence of appendicitis, diverticulitis or intestinal obstruction. 2. Multiple abscess anterior to the urinary bladder with minimal change since previous examination. Thickened wall of the urinary bladder with possible perforation. 3. Polycystic pancreas. 4. Left hydronephrotic changes and left renal cyst. 5. Constipation. 6. Bilateral inguinal fat containing hernia. 7. Distended gallbladder with no definite stones. Labs Labs: Laboratory Results - last 24 hr 01/24/25 01/24/25 01/24/25 12:09 16:26 20:42 WBC RBC Hgb Hct MCV MCH MCHC RDW Plt Count MPV Immature Gran % (Auto) Neut % (Auto) Lymph % (Auto) [place] % (Auto) Eos % (Auto) Baso % (Auto) Lymph # (Auto) [place] # (Auto) Eos # (Auto) Baso # (Auto) Abs Immat Gran (auto) Absolute Neuts (auto) Absolute Nucleated RBC Band Neutrophils % Nucleated RBC % Platelet Estimate Anisocytosis Ovalocytes [place] Cells Schistocytes Sodium 147 H Potassium 3.4 Chloride 115 H Carbon Dioxide 23 Anion Gap 9 BUN 16 Creatinine 0.62 L Estim Creat Clear Calc 87 Estimated GFR > 60 Glucose 124 H POC Capillary Glucose 128 H 131 H Calcium 10.2 01/25/25 01/25/25 01/25/25 05:40 07:44 11:54 WBC 7.4 RBC 3.22 L Hgb 9.7 L Hct 31.2 L MCV 96.9 MCH 30.1 MCHC 31.1 L RDW 22.7 H Plt Count 254 MPV 9.7 Immature Gran % (Auto) 1.5 H Neut % (Auto) 71.4 Lymph % (Auto) 19.2 [place] % (Auto) 5.9 Eos % (Auto) 1.2 Baso % (Auto) 0.8 Lymph # (Auto) 1.42 [place] # (Auto) 0.4 Eos # (Auto) 0.1 Baso # (Auto) 0.1 Abs Immat Gran (auto) 0.11 H Absolute Neuts (auto) 5.3 Absolute Nucleated RBC 0.000 Band Neutrophils % Not Reportable Nucleated RBC % 0.0 Platelet Estimate Adequate Anisocytosis 1+ Ovalocytes 1+ [place] Cells 1+ Schistocytes None seen Sodium 146 H Potassium 3.0 L Chloride 115 H Carbon Dioxide 20 L Anion Gap 11 BUN 16 Creatinine 0.68 L Estim Creat Clear Calc 80 Estimated GFR > 60 Glucose 112 H POC Capillary Glucose 120 H 186 H Calcium 9.9 Quality VTE Prophylaxis VTE prophylaxis: mechanical ordered and pharmacologic ordered
[2025-01-25 14:00] VITALS: BP 145/74; PULSE 107; RESP 20; TEMP 36.7; O2SAT 99
[2025-01-25 20:25] VITALS: BP 132/70; PULSE 102; RESP 20; TEMP 35.6; O2SAT 98
[2025-01-25] MEDS: DOXAZOSIN MESYLATE 2 MG TABLET PO (20:46)
[2025-01-25] MEDS: SENNA/DOCUSATE SODIUM TABLET 2 TAB PO (20:46)
[2025-01-25] MEDS: DONEPEZIL HCL 5 MG TABLET PO (20:46)
[2025-01-25 21:23] VITALS: O2SAT 98
[2025-01-25] MEDS: ACETAMINOPHEN 325 MG TABLET 650 MG PO (23:19)
[2025-01-25] MEDS: DICYCLOMINE HCL 10 MG CAPSULE 20 MG PO (23:42)
[2025-01-26] MEDS: AMPICILLIN SODIUM/SULBACTAM 3 GM in SODIUM CHLORIDE 0.9% IV 100 ML 200 ML IVPB ×4 (00:45→17:16)
[2025-01-26] MEDS: HYDROcodone/acetaminophen (*CRX) 5-325 MG TABLET 1 TAB PO ×4 (03:11→21:01)
[2025-01-26 05:30] VITALS: BP 131/73; PULSE 78; RESP 18; TEMP 35.7; O2SAT 100
[2025-01-26] MEDS: METOCLOPRAMIDE HCL INJ 10 MG/2 ML VIAL 5 MG IV PUSH ×3 (05:32→17:17)
[2025-01-26] MEDS: LEVOTHYROXINE SODIUM 75 MCG TABLET PO (05:36)
[2025-01-26] MEDS: SIMETHICONE 125 MG CHEW TAB PO ×4 (05:37→21:01)
[2025-01-26 06:18] LABS: Hematocrit 31.9 % (42.0-52.0); Hemoglobin 9.9 g/dL (14.0-18.0); Mean Corpuscular HGB Conc 31.0 g/dl (32-36); Mean Corpuscular Hemoglobin 30.2 pg (26-34); Mean Corpuscular Volume 97.3 fl (80-100); Platelet Count Result 287 k/mm3 (150-375); Red Blood Count 3.28 M/mm3 (4.6-6.20); White Blood Count 9.8 K/mm3 (4.5-10.0)
[2025-01-26 07:02] LABS: Anion Gap 7 mmol/L (4-12); Blood Urea Nitrogen 16 mg/dL (9-20); Calcium 9.7 mg/dL (8.4-10.2); Carbon Dioxide 24 mmol/L (22-30); Chloride 112 mmol/L (98-107); Estimated CRCL calculation 85 ml/min; Estimated Glomerular Filt Rate > 60; Glucose 141 mg/dL (65-110); Potassium 2.7 mmol/L (3.4-5.0); Sodium 143 mmol/L (137-145)
[2025-01-26] MEDS: DOXYCYCLINE HYCLATE 100 MG TABLET PO ×2 (08:42→21:01)
[2025-01-26] MEDS: POTASSIUM CHLORIDE 20 MEQ PACKET (FOR LIQUID) 40 MEQ PO ×2 (08:42→17:20)
[2025-01-26] MEDS: SENNA/DOCUSATE SODIUM TABLET 2 TAB PO (08:42)
[2025-01-26] MEDS: PANTOPRAZOLE 40 MG TABLET PO ×2 (08:42→21:01)
[2025-01-26] MEDS: DUTASTERIDE 0.5 MG CAPSULE PO (08:42)
[2025-01-26] MEDS: METOPROLOL SUCCINATE EXT REL 25 MG TABCR PO (08:43)
[2025-01-26] MEDS: ENOXAPARIN 100 MG/ML SYRINGE 90 MG SUB-Q ×2 (08:43→21:07)
[2025-01-26] MEDS: MICONAZOLE NITRATE 2% CREAM 30 GM TUBE 1 APPLIC TOPICAL (08:47)
[2025-01-26] MEDS: KCL 40 MEQ/0.9% SOD CHL 1,000 ML 100 ML IV CONT (08:47)
[2025-01-26] MEDS: FLUTICASONE PROPIONATE 0.05% NA SPR 16 GM BTL (*BKC) 1 SPRAY XX (08:47)
[2025-01-26] MEDS: ASPIRIN 81 MG ENTERIC TABLET PO (08:47)
--- NOTE | 2025-01-26 10:02 | P.PNIM_ITS ---
Progress Note: A&P Assessment and Plan (1) Pulmonary embolism: Qualifiers: Acute cor pulmonale presence: with acute cor pulmonale Chronicity: acute Pulmonary embolism type: unspecified Qualified Code(s): I26.09 - Other pulmonary embolism with acute cor pulmonale Code(s): I26.99 - Other pulmonary embolism without acute cor pulmonale Status: Acute Assessment and Plan: ACTIVE, improved, monitoring Right heart strain on CT 01/15. Recent diagnosis of DVT at [facility], was on Eliquis. Not requiring oxygen. Tachycardia resolved. DNR/DNI. Spoke with his daughter and his at the bedside and the patient 01/18 TTE no evidence of heart strain -On a heparin drip from 01/15-01/19 for concern for bleeding. Hgb has ranged from 7.1-8.1 the last couple days Acute drop on 01/14 (7.9>5.4 and received 2 unit PRBC's) No report of acute blood loss or melena. -Changed to Lovenox 01/19 Hb has been stable Spoke with family members daily ( and daughter) and aggressive interventions not goals of care. Declined option for transfer to higher acuity, but that is appropriate because goals of care primarily palliative with limited interventions. Giving blood for Hgb <7 --Readdress palliative care or hospice if new hemodynamic changes (2) Abdominal abscess: Status: Acute Assessment and Plan: ACTIVE, acute Recent bladder rupture, treated at [place]. CT abd/pelvis at OSH 01/08 showed evolving sequelae of extraperitoneal bladder rupture within an capsulated mixed gas-fluid collection in the space Retzius and fluid component of which is decreased in size compared to prior examination in continuity with the anterior urinary bladder wall defect fluid directing subjacent to the rectus abdominus musculature no new organized or drainable fluid collection to partially imaged subsegmental bilateral pulmonary emboli as previously seen on the prior CT from 12/27 had been treated with Zosyn, Flagyl and Vanc, then cefepime and Vanc. Was seen by ID at OSH. DC'd cefepime and vanc & started linezolid on 01/03 and completed 4 weeks of treatment of MRSA bacteremia -Spoke with family and not pursuing surgical options given comorbidities -Suspect suprapubic pain 2/2 abscess and suspect generalized pain related to abdominal distention so started simethicone and bentyl prn --01/15 Started empiric Cefepime, Flagyl. Changed zyvox to doxycycline for thrombocytopenia. Repeat CT CAP in about a week (01/22) to monitor abscess on current antibiotics before deciding end date. Consider a 3 week course and outpatient ID follow up at the [facility] ID clinic if improving [phone] --Pain control: Tylenol, Canyon, Dilaudid prn. Ideally would limit opiates for gastric distention/bloating but will continue for abdominal abscess/recent bladder perforation --Follow daily CBC. Weekly CRP & ESR --Do not remove Nuñez except with urology consultation. No acute indication for urology consultation because no plan for interventions at this point CT CAP 01/15 1. Multiple abscesses seen anterior to the urinary bladder. 2. Thickened wall of the gallbladder suggestive of cystitis. 3. Free fluid seen in the pelvis and paracolic gutters. 4. Left hydronephrotic changes with no definite stones. 5. Constipation. 6. Bilateral pleural effusion with adjacent atelectasis. 7. Large left renal cyst. 8. Polycystic pancreas. 9. Bilateral fat containing inguinal hernias. CT 01/22/25 Multiple abscess anterior to the urinary bladder with minimal change since previous examination. Thickened wall of the urinary bladder with possible perforation (3) Abdominal pain: Qualifiers: Abdominal location: generalized Qualified Code(s): R10.84 - Generalized abdominal pain Code(s): R10.9 - Unspecified abdominal pain Status: Acute Assessment and Plan: Overall improved but more abdominal pain intermittently. Abdominal hyperactive. Had a BM. eating better. --Tylenol, Vicodin, --Schedule simethicone and bentyl prn for abdominal cramping (4) Acute on chronic anemia: Code(s): D64.9 - Anemia, unspecified Status: Acute Assessment and Plan: ACTIVE, stable monitoring Acute, Blood count was trending down on heparin drip, s/p 2 units of PRBC's 01/14. Concern for acute GI bleeding but never had melena. Not planning intervention per discussion with family. No plan for scope. No report of hematoma on CT, but was not a CT angio --Follow blood count and transfuse as able for Hgb <7 --Blood count has been stable for several days --No report of melena (5) MRSA bacteremia: Code(s): R78.81 - Bacteremia; B95.62 - Methicillin resistant Staphylococcus aureus infection as the cause of diseases classified elsewhere Status: Acute Assessment and Plan: Recently treated for MRSA bacteremia, completed 01/13. TTE 01/03 no vegetations. Also treated for sacral pyoderma gangrenosum. Was seen by dermatology and recently completed a steroid taper --Follow up Blood cultures x2 01/15 No growth to date --Follow WBC, ESR, CRP, temps --Currently taking Cefepime IV, Flagyl and Doxy. Abx changed to Unasyn. discussed with Pharmacy team. (6) Sacral decubitus ulcer: Code(s): L89.159 - Pressure ulcer of sacral region, unspecified stage Status: Acute Assessment and Plan: -Wound care following. Recently treated with a course of steroids at the outside hospital per Dermatology recs for pyoderma gangrenosum -treating topical steroid spray and avoiding systemic steroids given infection (7) Thrombocytopenia: Code(s): D69.6 - Thrombocytopenia, unspecified Status: Acute Assessment and Plan: ACTIVE, stable, monitoring -Plt count 81-117 during admission. Up to 100. Recently on 4 weeks of linezolid which can cause pancytopenia, so changed to an alternate medication. Was stable on heparin drip. -patient now on lovenox -monitor CBC (8) Severe malnutrition: Code(s): E43 - Unspecified severe protein-calorie malnutrition Status: Acute Assessment and Plan: Supplements per dietitian (9) Electrolyte abnormality: Code(s): E87.8 - Other disorders of electrolyte and fluid balance, not elsewhere classified Status: Acute Assessment and Plan: ACTIVE 01/15 Potassium 3.1, Phos 1.9. 20meq Kcl, 15mmol kphos, and 250 kphos tabs BID x2 doses, 40meq IV 01/16 Potassium 3.1, 40meq x2. Mag 1.8 s/p 2G IV mag today. Phos 1.8, 20mmol 01/17-01/18 Potassium 3.2 40meq IV repeat 3.6 20meq IV today 01/19 Potassium 3.2. Schedule potassium 10 TID x2 days has low potassium will give po potassium --Follow potassium, mag, and phos --Has a poor appetite, eating bites --DC'd tele since no CPR 01/25/25 patient can not tolerate IV potassium, continue with Po potassium 01/26 still has low potassium. 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 Had multiple BM's 01/16 --Continue miralax daily, bisacodyl suppository hs if no BM in 48 hours. (12) Lactic acidosis: Code(s): E87.20 - Acidosis, unspecified Status: Acute Assessment and Plan: RESOLVED significant lactic acidosis likely due to a combination of factors id metformin use,, decreased perfusion and or some hepatic dysfunction. The patient did have lactic acidosis during his last hospitalization that did not completely normalize. Lactic acid is definitely higher than prior values but this is in the setting of acute PE. Metformin is on hold. Patient's lactic acid did improve after 1 L fluid bolus. (13) Goals of care, counseling/discussion: Code(s): Z71.89 - Other specified counseling Status: Acute Assessment and Plan: ACTIVE DNR/DNI Plan Next of Kin, Vianney Moralez [phone] MEDICAL DECISION MAKING NARRATIVE -Patient seen and examined at bedside -Collaborated with patient's nurse and family at the bedside in detail and a ddressed all concerns -Labs, electrolytes, radiology, investigations and test results reviewed -ED/Consult/Nursing/Ancilliary notes on the chart reviewed and appreciated Patient has been admitted as observation status Subjective Date/time seen: 01/26/25 10:02 Interval history: Patient was seen and examined at bedside. he is feeling fine. has low appetite. did not work wit PT/OT today. repeat CT abd today. did not work with PT/OT yesterday. he and his asking to work with PT/OT today. hypokalemia, will give po potassium. 01/23/25 Patient was seen and examined at bedside. he is sleeping comfortably. reviewed Ct abd with her daughter at bedside.Multiple abscess anterior to the urinary bladder with minimal change since previous examination. Thickened wall of the urinary bladder with possible perforation waiting for his family discussion about goal of care. 01/24/25 Patient was seen and examined at bedside. he is feeling better. no acute event over night. discussed with his at bedside. we will see how he is doing with PT/OT. 01/25/25 Patient was seen and examined at bedside. he is feeling better. he could not tolerate Iv potassium, was discontinued. continue with Po potassium. denies cheat pain abd pain. N/V. 01/26/25 Patient was seen and examined at bedside. he is feeling better. denies any chest pain, SOB,abd pain, N/V. low potassium . will give IV potassium. Review of Systems Review of Systems: Review of systems unobtainable due to patient's dementia Exam Narrative: GENERAL: Comfortable, no acute distress HENMT: moist mucous membranes RESPIRATORY: clear to auscultation, no increased respiratory effort CARDIO: Regular rate and rhythm GI: soft, bowel sounds present, tenderness to palpation in all 4 quadrants SKIN/EXTREMITIES: no rashes, no edema, no redness or tenderness, muscle wasting NEURO: answers questions appropriately, A&O x4 Const: Other: Acutely ill-appearing, debilitated, deconditioned HENMT: Other: Mucous membranes are dry, no oral pharyngeal erythema, crowded posterior oropharynx Eyes: Other: Marked conjunctival pallor, no scleral icterus, bilateral lens implants noted Neck: Other: No JVD, no lymphadenopathy Resp: Other: shallow respirations, no increased work of breathing Cardio: Other: Irregularly irregular, rate controlled, 2+ bilateral radial and pedal pulses GI: Other: Soft, slightly distended, nontender, hypoactive bowel sounds : Other: Nuñez catheter in place with clear yellow urine, scrotal edema Skin: Other: Generalized pallor, non jaundice, he numerous scattered superficial hematomas Neuro: Other: Patient is alert oriented to person and the fact that he is in the hospital, no localizing neurologic deficits noted but exam limited Extrem: Other: Marked pitting edema of the left lower extremity up through the knee and , edema of the right hand wrist and forearm, edema of the left upper extremity, Psych: Other: Pleasantly confused, cooperative, poor judgment and insight Objective Data Vital Signs Vital Signs: Vital Signs - 24 hr 01/25/25 14:00 01/25/25 20:25 01/25/25 21:23 Temperature 98.0 F 96.1 F L Pulse Rate 107 H 102 H Respiratory Rate 20 20 Blood Pressure 145/74 H 132/70 Pulse Oximetry 99 98 98 Oxygen Delivery Room Air 01/26/25 05:30 Temperature 96.2 F L Pulse Rate 78 Respiratory Rate 18 Blood Pressure 131/73 Pulse Oximetry 100 Oxygen Delivery Intake/Output Intake/Output: Intake & Output 01/23/25 01/24/25 01/25/25 01/26/25 23:59 23:59 23:59 23:59 Intake Total 343 726 1125 750 Output Total 1325 1425 1600 1250 Balance -317 -505 -120 -500 Meds/Results Medications: Active Medications Generic Name Dose Route Start Last Admin Trade Name Redq PRN Reason Stop Dose Admin Acetaminophen 650 mg 01/12/25 21:07 01/25/25 23:19 Acetaminophen 325 Mg Tablet PO 650 mg Q6H PRN Administration pain 1-3 or fever Hydrocodone Bitart/Acetaminophen 1 tab 01/13/25 09:00 01/26/25 08:42 Hydrocodone/Acetaminophen (*Crx) 5-325 Mg Tablet PO 1 tab Q6H NEHEMIAH Administration Aspirin 81 mg 01/13/25 09:00 01/26/25 08:47 Aspirin 81 Mg Enteric Tablet PO 81 mg DAILY NEHEMIAH Administration Bisacodyl 10 mg 01/17/25 21:00 01/25/25 21:40 Bisacodyl 10 Mg Suppository RECTAL Not Given HS [facility] Calcium Carbonate 500 mg 01/17/25 12:00 01/25/25 11:35 Calcium/Vitamin D 500 Mg/5 Mcg (200 I.U.) Tablet PO 500 mg DAILY@1200 [facility] Administration Dextrose 12.5 gm 01/13/25 02:29 Dextrose 50% 25 Gm/50 Ml Syringe IV PUSH PRN PRN Hypoglycemia Protocol Dibucaine 1 applic 01/12/25 21:07 01/17/25 21:13 Dibucaine 1% Ointment 30 Gm Tube TOPICAL 1 applic QID PRN Administration Pain of groin ulcer Dicyclomine HCl 20 mg 01/18/25 12:32 01/25/25 23:42 Dicyclomine Hcl 10 Mg Capsule PO 20 mg QID PRN Administration Abdominal Cramping Donepezil HCl 5 mg 01/12/25 21:10 01/25/25 20:46 Donepezil Hcl 5 Mg Tablet PO 5 mg QHS NEHEMIAH Administration Doxazosin Mesylate 2 mg 01/12/25 21:25 01/25/25 20:46 Doxazosin Mesylate 2 Mg Tablet PO 2 mg QHS NEHEMIAH Administration Doxycycline Hyclate 100 mg 01/17/25 09:00 01/26/25 08:42 Doxycycline Hyclate 100 Mg Tablet PO 100 mg Q12HR NEHEMIAH Administration Dutasteride 0.5 mg 01/13/25 09:00 01/26/25 08:42 Dutasteride 0.5 Mg Capsule PO 0.5 mg DAILY NEHEMIAH Administration Enoxaparin Sodium 90 mg 01/19/25 09:00 01/26/25 08:43 Enoxaparin 100 Mg/Ml Syringe SUB-Q 90 mg Q12HR NEHEMIAH Administration Fluticasone Propionate 1 spray 01/15/25 21:00 01/26/25 08:47 Fluticasone Propionate 0.05% Na Spr 16 Gm Btl (*Bkc) XX 1 spray Q12H NEHEMIAH Administration Fluticasone Propionate 1 spray 01/18/25 10:04 Fluticasone Propionate 0.05% Na Spr 16 Gm Btl (*Bkc) NASAL Q12HR PRN allergy symptoms Glucagon 1 mg 01/13/25 02:29 Glucagon For Inj 1 Mg Vial IM PRN PRN Hypoglycemia Protocol Glucose 15 gm 01/13/25 02:29 Glucose Oral Gel 15 Gm Of Glucse In 37.5 Gm Tube PO PRN PRN Hypoglycemia Protocol Dextrose 1,000 mls @ 100 mls/hr 01/13/25 02:29 Dextrose 5% 1,000 Ml IVPB PRN PRN Hypoglycemia Protocol Albumin Human 200 mls @ 60 mls/hr 01/16/25 01:00 01/19/25 01:10 Albutein IVPB 60 mls/hr Q8H NEHEMIAH Administration Ampicillin Sodium/Sulbactam 100 mls @ 200 mls/hr 01/23/25 12:00 01/26/25 05:29 Sodium 3 gm/ Sodium Chloride IVPB 200 mls/hr Q6H NEHEMIAH Administration Potassium Chloride/Sodium Chloride 1,000 mls @ 100 mls/hr 01/26/25 07:15 01/26/25 08:47 Kcl 40 Meq/Ns IV CONT 100 mls/hr .Q10H NEHEMIAH Administration Insulin Aspart 2 - 5 units 01/13/25 08:00 01/26/25 08:44 Insulin Aspart (*Bkc) 100 Units/Ml SUB-Q Not Given TIDWM [facility] Protocol Levothyroxine Sodium 75 mcg 01/13/25 06:30 01/26/25 05:36 Levothyroxine Sodium 75 Mcg Tablet PO 75 mcg DAILY@0630 NEHEMIAH Administration Metoclopramide HCl 5 mg 01/17/25 16:30 01/26/25 05:32 Metoclopramide Hcl Inj 10 Mg/2 Ml Vial IV PUSH 5 mg TIDAC NEHEMIAH Administration Metoprolol Succinate 25 mg 01/13/25 09:00 01/26/25 08:43 Metoprolol Succinate Ext Rel 25 Mg Tabcr PO 25 mg DAILY NEHEMIAH Administration Miconazole Nitrate 1 applic 01/13/25 09:00 01/26/25 08:47 Miconazole Nitrate 2% Cream 30 Gm Tube TOPICAL 1 applic Q12HR NEHEMIAH Administration Miscellaneous Information 1 each 01/22/25 00:01 01/23/25 09:30 Please Renew Canyon And Miconazole. Per [employer] Procedure, It Will Discontinue If Not Isaiah XX 02/21/25 00:00 1 each CLARIFY NEHEMIAH Administration Miscellaneous Information 1 each 01/25/25 00:01 Morphine Needs To Be Renewed Or It Will Automatically Discontinue. XX 02/24/25 00:00 CLARIFY NEHEMIAH Miscellaneous Information 1 each 01/26/25 00:01 Please Renew Doxycycline Hycl_. Per [employer] Procedure, It Will Discontinue If Not Renewed XX 02/25/25 00:00 CLARIFY NEHEMIAH Pantoprazole Sodium 40 mg 01/17/25 21:00 01/26/25 08:42 Pantoprazole 40 Mg Tablet PO 40 mg Q12HR NEHEMIAH Administration Potassium Chloride 40 meq 01/24/25 09:00 01/26/25 08:42 Potassium Chloride 20 Meq Packet (For Liquid) PO 40 meq TID NEHEMIAH Administration Senna/Docusate Sodium 2 tab 01/13/25 09:00 01/26/25 08:42 Senna/Docusate Sodium Tablet PO 2 tab Q12HR NEHEMIAH Administration Simethicone 125 mg 01/18/25 16:30 01/26/25 05:37 Simethicone 125 Mg Chew Tab PO 125 mg ACHS NEHEMIAH Administration Radiology Results: ITS Impressions Chest CTA 01/12/25 16:59 IMPRESSION: Multiple pulmonary emboli, large clot burden, and evidence of right heart strain. Trace right and small left pleural effusions. 4 mm right upper lobe pulmonary nodule, consider an optional follow-up low-dose noncontrast CT of the chest in one year if the patient is at high risk. Gallbladder hydrops, likely secondary to fasting the absence of right upper quadrant pain or biliary labs abnormalities. Innumerable pancreatic cysts, which may represent the sequela of chronic pancreatitis, or less likely the uncommon diagnosis of isolated polycystic pancreatic disease. Correlate for pancreatic enzyme abnormalities and any symptoms of vague abdominal pain. Consider nonemergent MRI of the pancreas if there are abdominal symptoms. Results reported telephonically to Dr. Haque by Dr. Barry at 5:19 PM on 01/12/2025. Abdomen/Pelvis CT 01/15/25 19:18 IMPRESSION: 1. Multiple abscesses seen anterior to the urinary bladder. 2. Thickened wall of the gallbladder suggestive of cystitis. 3. Free fluid seen in the pelvis and paracolic gutters. 4. Left hydronephrotic changes with no definite stones. 5. Constipation. 6. Bilateral pleural effusion with adjacent atelectasis. 7. Large left renal cyst. 8. Polycystic pancreas. 9. Bilateral fat containing inguinal hernias. Chest/Abdomen/Pelvis CT 01/22/25 16:17 IMPRESSION: CHEST: 1. Bilateral large pleural effusion with adjacent atelectasis versus pneumonia 2. Atelectasis versus pneumonia in the lingula.. ABDOMEN/PELVIS: 1. No evidence of appendicitis, diverticulitis or intestinal obstruction. 2. Multiple abscess anterior to the urinary bladder with minimal change since previous examination. Thickened wall of the urinary bladder with possible perforation. 3. Polycystic pancreas. 4. Left hydronephrotic changes and left renal cyst. 5. Constipation. 6. Bilateral inguinal fat containing hernia. 7. Distended gallbladder with no definite stones. Labs Labs: Laboratory Results - last 24 hr 01/25/25 01/25/25 01/25/25 11:54 16:38 20:29 WBC RBC Hgb Hct MCV MCH MCHC RDW Plt Count MPV Sodium Potassium Chloride Carbon Dioxide Anion Gap BUN Creatinine Estim Creat Clear Calc Estimated GFR Glucose POC Capillary Glucose 186 H 146 H 165 H Calcium 01/26/25 01/26/25 01/26/25 06:12 06:30 08:15 WBC 9.8 RBC 3.28 L Hgb 9.9 L Hct 31.9 L MCV 97.3 MCH 30.2 MCHC 31.0 L RDW 22.5 H Plt Count 287 MPV 10.4 Sodium 143 Potassium 2.7 L* Chloride 112 H Carbon Dioxide 24 Anion Gap 7 BUN 16 Creatinine 0.64 L Estim Creat Clear Calc 85 Estimated GFR > 60 Glucose 141 H POC Capillary Glucose 78 Calcium 9.7 Quality VTE Prophylaxis VTE prophylaxis: mechanical ordered and pharmacologic ordered
[2025-01-26] MEDS: CALCIUM/VITAMIN D 500 MG/5 MCG (200 I.U.) TABLET PO (11:11)
[2025-01-26 11:13] LABS: Anion Gap 7 mmol/L (4-12); Blood Urea Nitrogen 16 mg/dL (9-20); Calcium 9.5 mg/dL (8.4-10.2); Carbon Dioxide 24 mmol/L (22-30); Chloride 110 mmol/L (98-107); Estimated CRCL calculation 90 ml/min; Estimated Glomerular Filt Rate > 60; Glucose 191 mg/dL (65-110); Potassium 3.1 mmol/L (3.4-5.0); Sodium 141 mmol/L (137-145)
[2025-01-26 14:00] VITALS: BP 131/67; PULSE 71; RESP 18; TEMP 36.4; O2SAT 98
[2025-01-26] MEDS: DOXAZOSIN MESYLATE 2 MG TABLET PO (21:01)
[2025-01-26 21:45] VITALS: BP 147/80; PULSE 110; RESP 20; TEMP 35.9; O2SAT 100
[2025-01-27] MEDS: BISACODYL 10 MG SUPPOSITORY RECTAL (00:34)
[2025-01-27] MEDS: SENNA/DOCUSATE SODIUM TABLET 2 TAB PO (00:35)
[2025-01-27] MEDS: DONEPEZIL HCL 5 MG TABLET PO ×2 (00:36→20:52)
[2025-01-27] MEDS: FLUTICASONE PROPIONATE 0.05% NA SPR 16 GM BTL (*BKC) 1 SPRAY XX ×2 (00:37→09:32)
[2025-01-27] MEDS: MICONAZOLE NITRATE 2% CREAM 30 GM TUBE 1 APPLIC TOPICAL ×2 (00:38→09:32)
[2025-01-27] MEDS: AMPICILLIN SODIUM/SULBACTAM 3 GM in SODIUM CHLORIDE 0.9% IV 100 ML 200 ML IVPB ×4 (01:21→17:41)
[2025-01-27] MEDS: HYDROcodone/acetaminophen (*CRX) 5-325 MG TABLET 1 TAB PO ×4 (02:39→20:52)
[2025-01-27] MEDS: KCL 40 MEQ/0.9% SOD CHL 1,000 ML 100 ML IV CONT ×2 (05:14→15:38)
[2025-01-27] MEDS: METOCLOPRAMIDE HCL INJ 10 MG/2 ML VIAL 5 MG IV PUSH ×3 (05:25→15:38)
[2025-01-27] MEDS: SIMETHICONE 125 MG CHEW TAB PO ×4 (05:25→20:52)
[2025-01-27] MEDS: LEVOTHYROXINE SODIUM 75 MCG TABLET PO (05:25)
[2025-01-27 05:30] VITALS: BP 142/79; PULSE 111; RESP 20; TEMP 35.8; O2SAT 100
[2025-01-27 06:32] LABS: Hematocrit 29.7 % (42.0-52.0); Hemoglobin 9.1 g/dL (14.0-18.0); Mean Corpuscular HGB Conc 30.6 g/dl (32-36); Mean Corpuscular Hemoglobin 29.8 pg (26-34); Mean Corpuscular Volume 97.4 fl (80-100); Platelet Count Result 260 k/mm3 (150-375); Red Blood Count 3.05 M/mm3 (4.6-6.20); White Blood Count 7.5 K/mm3 (4.5-10.0)
[2025-01-27 06:59] LABS: Anion Gap 6 mmol/L (4-12); Blood Urea Nitrogen 13 mg/dL (9-20); Calcium 9.5 mg/dL (8.4-10.2); Carbon Dioxide 24 mmol/L (22-30); Chloride 115 mmol/L (98-107); Estimated CRCL calculation 97 ml/min; Estimated Glomerular Filt Rate > 60; Glucose 129 mg/dL (65-110); Potassium 3.5 mmol/L (3.4-5.0); Sodium 145 mmol/L (137-145)
[2025-01-27] MEDS: POTASSIUM CHLORIDE 20 MEQ PACKET (FOR LIQUID) 40 MEQ PO (09:31)
[2025-01-27] MEDS: DUTASTERIDE 0.5 MG CAPSULE PO (09:31)
[2025-01-27 09:32] VITALS: PULSE 119
[2025-01-27] MEDS: DOXYCYCLINE HYCLATE 100 MG TABLET PO ×2 (09:32→20:52)
[2025-01-27] MEDS: PANTOPRAZOLE 40 MG TABLET PO ×2 (09:32→20:55)
[2025-01-27] MEDS: METOPROLOL SUCCINATE EXT REL 25 MG TABCR PO (09:32)
[2025-01-27] MEDS: ENOXAPARIN 100 MG/ML SYRINGE 90 MG SUB-Q ×2 (11:54→20:58)
[2025-01-27] MEDS: ASPIRIN 81 MG ENTERIC TABLET PO (11:55)
[2025-01-27] MEDS: CALCIUM/VITAMIN D 500 MG/5 MCG (200 I.U.) TABLET PO (11:55)
[2025-01-27 13:51] VITALS: BP 131/60; PULSE 104; RESP 16; TEMP 36.1; O2SAT 100
--- NOTE | 2025-01-27 14:31 | P.PNIM_ITS ---
Progress Note: A&P Assessment and Plan (1) Pulmonary embolism: Qualifiers: Acute cor pulmonale presence: with acute cor pulmonale Chronicity: acute Pulmonary embolism type: unspecified Qualified Code(s): I26.09 - Other pulmonary embolism with acute cor pulmonale Code(s): I26.99 - Other pulmonary embolism without acute cor pulmonale Status: Acute Assessment and Plan: ACTIVE, improved, monitoring Right heart strain on CT 01/15. Recent diagnosis of DVT at [facility], was on Eliquis. Not requiring oxygen. Tachycardia resolved. DNR/DNI. Spoke with his daughter and his at the bedside and the patient 01/18 TTE no evidence of heart strain -On a heparin drip from 01/15-01/19 for concern for bleeding. Hgb has ranged from 7.1-8.1 the last couple days Acute drop on 01/14 (7.9>5.4 and received 2 unit PRBC's) No report of acute blood loss or melena. -Changed to Lovenox 01/19 Hb has been stable Spoke with family members daily ( and daughter) and aggressive interventions not goals of care. Declined option for transfer to higher acuity, but that is appropriate because goals of care primarily palliative with limited interventions. Giving blood for Hgb <7 01/27/25 Plan to discharge to facility with hospice. (2) Abdominal abscess: Status: Acute Assessment and Plan: ACTIVE, acute Recent bladder rupture, treated at [place]. CT abd/pelvis at OSH 01/08 showed evolving sequelae of extraperitoneal bladder rupture within an capsulated mixed gas-fluid collection in the space Retzius and fluid component of which is decreased in size compared to prior examination in continuity with the anterior urinary bladder wall defect fluid directing subjacent to the rectus abdominus musculature no new organized or drainable fluid collection to partially imaged subsegmental bilateral pulmonary emboli as previously seen on the prior CT from 12/27 had been treated with Zosyn, Flagyl and Vanc, then cefepime and Vanc. Was seen by ID at OSH. DC'd cefepime and vanc & started linezolid on 01/03 and completed 4 weeks of treatment of MRSA bacteremia -Spoke with family and not pursuing surgical options given comorbidities -Suspect suprapubic pain 2/2 abscess and suspect generalized pain related to abdominal distention so started simethicone and bentyl prn --01/15 Started empiric Cefepime, Flagyl. Changed zyvox to doxycycline for thrombocytopenia. Repeat CT CAP in about a week (01/22) to monitor abscess on current antibiotics before deciding end date. Consider a 3 week course and outpatient ID follow up at the [facility] ID clinic if improving [phone] --Pain control: Tylenol, [place], Dilaudid prn. Ideally would limit opiates for gastric distention/bloating but will continue for abdominal abscess/recent bladder perforation --Follow daily CBC. Weekly CRP & ESR --Do not remove Nuñez except with urology consultation. No acute indication for urology consultation because no plan for interventions at this point CT CAP 01/15 1. Multiple abscesses seen anterior to the urinary bladder. 2. Thickened wall of the gallbladder suggestive of cystitis. 3. Free fluid seen in the pelvis and paracolic gutters. 4. Left hydronephrotic changes with no definite stones. 5. Constipation. 6. Bilateral pleural effusion with adjacent atelectasis. 7. Large left renal cyst. 8. Polycystic pancreas. 9. Bilateral fat containing inguinal hernias. CT 01/22/25 Multiple abscess anterior to the urinary bladder with minimal change since p revious examination. Thickened wall of the urinary bladder with possible perforation 01/27/25 discussed with his family at bedside. no invasive intervention. plan to discharge to hospice (3) Abdominal pain: Qualifiers: Abdominal location: generalized Qualified Code(s): R10.84 - Generalized abdominal pain Code(s): R10.9 - Unspecified abdominal pain Status: Acute Assessment and Plan: Overall improved but more abdominal pain intermittently. Abdominal hyperactive. Had a BM. eating better. --Tylenol, Vicodin, --Schedule simethicone and bentyl prn for abdominal cramping (4) Acute on chronic anemia: Code(s): D64.9 - Anemia, unspecified Status: Acute Assessment and Plan: ACTIVE, stable monitoring Acute, Blood count was trending down on heparin drip, s/p 2 units of PRBC's 01/14. Concern for acute GI bleeding but never had melena. Not planning intervention per discussion with family. No plan for scope. No report of hematoma on CT, but was not a CT angio --Follow blood count and transfuse as able for Hgb <7 --Blood count has been stable for several days --No report of melena 01/27/25 Hb stable/improving/ no bleeding reported (5) MRSA bacteremia: Code(s): R78.81 - Bacteremia; B95.62 - Methicillin resistant Staphylococcus aureus infection as the cause of diseases classified elsewhere Status: Acute Assessment and Plan: Recently treated for MRSA bacteremia, completed 01/13. TTE 01/03 no vegetations. Also treated for sacral pyoderma gangrenosum. Was seen by dermatology and recently completed a steroid taper --Follow up Blood cultures x2 01/15 No growth to date --Follow WBC, ESR, CRP, temps --Currently taking Cefepime IV, Flagyl and Doxy. Abx changed to Unasyn. discussed with Pharmacy team. (6) Sacral decubitus ulcer: Code(s): L89.159 - Pressure ulcer of sacral region, unspecified stage Status: Acute Assessment and Plan: -Wound care following. Recently treated with a course of steroids at the outside hospital per Dermatology recs for pyoderma gangrenosum -treating topical steroid spray and avoiding systemic steroids given infection (7) Thrombocytopenia: Code(s): D69.6 - Thrombocytopenia, unspecified Status: Acute Assessment and Plan: ACTIVE, stable, monitoring -Plt count 81-117 during admission. Up to 100. Recently on 4 weeks of linezolid which can cause pancytopenia, so changed to an alternate medication. Was stable on heparin drip. -patient now on lovenox -monitor CBC (8) Severe malnutrition: Code(s): E43 - Unspecified severe protein-calorie malnutrition Status: Acute Assessment and Plan: Supplements per dietitian (9) Electrolyte abnormality: Code(s): E87.8 - Other disorders of electrolyte and fluid balance, not elsewhere classified Status: Acute Assessment and Plan: ACTIVE 01/15 Potassium 3.1, Phos 1.9. 20meq Kcl, 15mmol kphos, and 250 kphos tabs BID x2 doses, 40meq IV 01/16 Potassium 3.1, 40meq x2. Mag 1.8 s/p 2G IV mag today. Phos 1.8, 20mmol 01/17-01/18 Potassium 3.2 40meq IV repeat 3.6 20meq IV today 01/19 Potassium 3.2. Schedule potassium 10 TID x2 days has low potassium will give po potassium --Follow potassium, mag, and phos --Has a poor appetite, eating bites --DC'd tele since no CPR 01/25/25 patient can not tolerate IV potassium, continue with Po potassium 01/26 still has low potassium. 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 Had multiple BM's 01/16 --Continue miralax daily, (12) Lactic acidosis: Code(s): E87.20 - Acidosis, unspecified Status: Acute Assessment and Plan: RESOLVED significant lactic acidosis likely due to a combination of factors id metformin use,, decreased perfusion and or some hepatic dysfunction. The patient did have lactic acidosis during his last hospitalization that did not completely normalize. Lactic acid is definitely higher than prior values but this is in the setting of acute PE. Metformin is on hold. Patient's lactic acid did improve after 1 L fluid bolus. (13) Goals of care, counseling/discussion: Code(s): Z71.89 - Other specified counseling Status: Acute Assessment and Plan: ACTIVE DNR/DNI Plan Next of Kin, Vianney Moralez [phone] MEDICAL DECISION MAKING NARRATIVE -Patient seen and examined at bedside -Collaborated with patient's nurse and family at the bedside in detail and addressed all concerns -Labs, electrolytes, radiology, investigations and test results reviewed -ED/Consult/Nursing/Ancilliary notes on the chart reviewed and appreciated Patient has been admitted as observation status Subjective Date/time seen: 01/27/25 14:31 Interval history: Patient was seen and examined at bedside. he is feeling fine. has low appetite. did not work wit PT/OT today. repeat CT abd today. did not work with PT/OT yesterday. he and his asking to work with PT/OT today. hypokalemia, will give po potassium. 01/23/25 Patient was seen and examined at bedside. he is sleeping comfortably. reviewed Ct abd with her daughter at bedside.Multiple abscess anterior to the urinary bladder with minimal change since previous examination. Thickened wall of the urinary bladder with possible perforation waiting for his family discussion about goal of care. 01/24/25 Patient was seen and examined at bedside. he is feeling better. no acute event over night. discussed with his at bedside. we will see how he is doing with PT/OT. 01/25/25 Patient was seen and examined at bedside. he is feeling better. he could not tolerate Iv potassium, was discontinued. continue with Po potassium. denies cheat pain abd pain. N/V. 01/26/25 Patient was seen and examined at bedside. he is feeling better. denies any chest pain, SOB,abd pain, N/V. low potassium . will give IV potassium. 01/27/25 Patient was seen and examined at bedside. he is feeling fine, denies any chest pain, SOB, abd pain, N/V. Discussed with his at bedside;decision made to continue current treatment, no invasive procedure and discharge to facility with hospice. set up worker team was informed. Review of Systems Review of Systems: Review of systems unobtainable due to patient's dementia Exam Narrative: GENERAL: Comfortable, no acute distress HENMT: moist mucous membranes RESPIRATORY: clear to auscultation, no increased respiratory effort CARDIO: Regular rate and rhythm GI: soft, bowel sounds present, tenderness to palpation in all 4 quadrants SKIN/EXTREMITIES: no rashes, no edema, no redness or tenderness, muscle wasting NEURO: answers questions appropriately, A&O x4 Const: Other: Acutely ill-appearing, debilitated, deconditioned HENMT: Other: Mucous membranes are dry, no oral pharyngeal erythema, crowded posterior oropharynx Eyes: Other: Marked conjunctival pallor, no scleral icterus, bilateral lens implants noted Neck: Other: No JVD, no lymphadenopathy Resp: Other: shallow respirations, no increased work of breathing Cardio: Other: Irregularly irregular, rate controlled, 2+ bilateral radial and pedal pulses GI: Other: Soft, slightly distended, nontender, hypoactive bowel sounds : Other: Nuñez catheter in place with clear yellow urine, scrotal edema Skin: Other: Generalized pallor, non jaundice, he numerous scattered superficial hematomas Neuro: Other: Patient is alert oriented to person and the fact that he is in the hospital, no localizing neurologic deficits noted but exam limited Extrem: Other: bilateral lower ext trace 1+edema Psych: Other: cooperative, normal judgment and insight Objective Data Vital Signs Vital Signs: Vital Signs - 24 hr 01/26/25 21:45 01/27/25 05:30 01/27/25 08:00 Temperature 96.6 F L 96.4 F L Pulse Rate 110 H 111 H Respiratory Rate 20 20 Blood Pressure 147/80 H 142/79 H Pulse Oximetry 100 100 Oxygen Delivery Room Air 01/27/25 09:32 01/27/25 13:51 Temperature 97.0 F L Pulse Rate 119 H 104 H Respiratory Rate 16 Blood Pressure 131/60 Pulse Oximetry 100 Oxygen Delivery Intake/Output Intake/Output: Intake & Output 01/24/25 01/25/25 01/26/25 01/27/25 23:59 23:59 23:59 23:59 Intake Total 920 1480 2620 1122 Output Total 1425 1600 2250 2525 Balance -505 -535 483 -0796 Meds/Results Medications: Active Medications Generic Name Dose Route Start Last Admin Trade Name Freq PRN Reason Stop Dose Admin Acetaminophen 650 mg 01/12/25 21:07 01/25/25 23:19 Acetaminophen 325 Mg Tablet PO 650 mg Q6H PRN Administration pain 1-3 or fever Hydrocodone Bitart/Acetaminophen 1 tab 01/13/25 09:00 01/27/25 09:31 Hydrocodone/Acetaminophen (*Crx) 5-325 Mg Tablet PO 1 tab Q6H NEHEMIAH Administration Hydrocodone Bitart/Acetaminophen 1 tab 01/26/25 10:26 Hydrocodone/Acetaminophen (*Crx) 5-325 Mg Tablet PO Q6H PRN Pain Rated 4-6 Aspirin 81 mg 01/13/25 09:00 01/27/25 11:55 Aspirin 81 Mg Enteric Tablet PO 81 mg DAILY NEHEMIAH Administration Bisacodyl 10 mg 01/17/25 21:00 01/27/25 00:34 Bisacodyl 10 Mg Suppository RECTAL 10 mg HS NEHEMIAH Administration Calcium Carbonate 500 mg 01/17/25 12:00 01/27/25 11:55 Calcium/Vitamin D 500 Mg/5 Mcg (200 I.U.) Tablet PO 500 mg DAILY@1200 NEHEMIAH Administration Dextrose 12.5 gm 01/13/25 02:29 Dextrose 50% 25 Gm/50 Ml Syringe IV PUSH PRN PRN Hypoglycemia Protocol Dibucaine 1 applic 01/12/25 21:07 01/17/25 21:13 Dibucaine 1% Ointment 30 Gm Tube TOPICAL 1 applic QID PRN Administration Pain of groin ulcer Dicyclomine HCl 20 mg 01/18/25 12:32 01/25/25 23:42 Dicyclomine Hcl 10 Mg Capsule PO 20 mg QID PRN Administration Abdominal Cramping Donepezil HCl 5 mg 01/12/25 21:10 01/27/25 00:36 Donepezil Hcl 5 Mg Tablet PO 5 mg QHS NEHEMIAH Administration Doxazosin Mesylate 2 mg 01/12/25 21:25 01/26/25 21:01 Doxazosin Mesylate 2 Mg Tablet PO 2 mg QHS NEHEMIAH Administration Doxycycline Hyclate 100 mg 01/17/25 09:00 01/27/25 09:32 Doxycycline Hyclate 100 Mg Tablet PO 100 mg Q12HR NEHEMIAH Administration Dutasteride 0.5 mg 01/13/25 09:00 01/27/25 09:31 Dutasteride 0.5 Mg Capsule PO 0.5 mg DAILY NEHEMIAH Administration Enoxaparin Sodium 90 mg 01/19/25 09:00 01/27/25 11:54 Enoxaparin 100 Mg/Ml Syringe SUB-Q 90 mg Q12HR NEHEMIAH Administration Fluticasone Propionate 1 spray 01/15/25 21:00 01/27/25 09:32 Fluticasone Propionate 0.05% Na Spr 16 Gm Btl (*Bkc) XX 1 spray Q12H NEHEMIAH Administration Fluticasone Propionate 1 spray 01/18/25 10:04 Fluticasone Propionate 0.05% Na Spr 16 Gm Btl (*Bkc) NASAL Q12HR PRN allergy symptoms Glucagon 1 mg 01/13/25 02:29 Glucagon For Inj 1 Mg Vial IM PRN PRN Hypoglycemia Protocol Glucose 15 gm 01/13/25 02:29 Glucose Oral Gel 15 Gm Of Glucse In 37.5 Gm Tube PO PRN PRN Hypoglycemia Protocol Dextrose 1,000 mls @ 100 mls/hr 01/13/25 02:29 Dextrose 5% 1,000 Ml IVPB PRN PRN Hypoglycemia Protocol Albumin Human 200 mls @ 60 mls/hr 01/16/25 01:00 01/19/25 01:10 Albutein IVPB 60 mls/hr Q8H NEHEMIAH Administration Ampicillin Sodium/Sulbactam 100 mls @ 200 mls/hr 01/23/25 12:00 01/27/25 11:54 Sodium 3 gm/ Sodium Chloride IVPB 200 mls/hr Q6H NEHEMIAH Administration Potassium Chloride/Sodium Chloride 1,000 mls @ 100 mls/hr 01/26/25 07:15 01/27/25 05:14 Kcl 40 Meq/Ns IV CONT 100 mls/hr .Q10H NEHEMIAH Administration Insulin Aspart 2 - 5 units 01/13/25 08:00 01/27/25 12:04 Insulin Aspart (*Bkc) 100 Units/Ml SUB-Q Not Given TIDWM NEHEMIAH Protocol Levothyroxine Sodium 75 mcg 01/13/25 06:30 01/27/25 05:25 Levothyroxine Sodium 75 Mcg Tablet PO 75 mcg DAILY@0630 NEHEMIAH Administration Metoclopramide HCl 5 mg 01/17/25 16:30 01/27/25 11:55 Metoclopramide Hcl Inj 10 Mg/2 Ml Vial IV PUSH 5 mg TIDAC NEHEMIAH Administration Metoprolol Succinate 25 mg 01/13/25 09:00 01/27/25 09:32 Metoprolol Succinate Ext Rel 25 Mg Tabcr PO 25 mg DAILY NEHEMIAH Administration Miconazole Nitrate 1 applic 01/13/25 09:00 01/27/25 09:32 Miconazole Nitrate 2% Cream 30 Gm Tube TOPICAL 1 applic Q12HR NEHEMIAH Administration Miscellaneous Information 1 each 01/22/25 00:01 01/23/25 09:30 Please Renew [place] And Miconazole. Per [employer] Procedure, It Will Discontinue If Not Isaiah XX 02/21/25 00:00 1 each CLARIFY NEHEMIAH Administration Miscellaneous Information 1 each 01/25/25 00:01 Morphine Needs To Be Renewed Or It Will Automatically Discontinue. XX 02/24/25 00:00 CLARIFY NEHEMIAH Miscellaneous Information 1 each 01/26/25 00:01 Please Renew Doxycycline Hycl_. Per [employer] Procedure, It Will Discontinue If Not Renewed XX 02/25/25 00:00 CLARIFY NEHEMIAH Pantoprazole Sodium 40 mg 01/17/25 21:00 01/27/25 09:32 Pantoprazole 40 Mg Tablet PO 40 mg Q12HR NEHEMIAH Administration Potassium Chloride 40 meq 01/24/25 09:00 01/27/25 12:04 Potassium Chloride 20 Meq Packet (For Liquid) PO Not Given TID NEHEMIAH Senna/Docusate Sodium 2 tab 01/13/25 09:00 01/27/25 09:32 Senna/Docusate Sodium Tablet PO Not Given Q12HR NEHEMIAH Simethicone 125 mg 01/18/25 16:30 01/27/25 11:55 Simethicone 125 Mg Chew Tab PO 125 mg ACHS NEHEMIAH Administration Radiology Results: ITS Impressions Chest CTA 01/12/25 16:59 IMPRESSION: Multiple pulmonary emboli, large clot burden, and evidence of right heart strain. Trace right and small left pleural effusions. 4 mm right upper lobe pulmonary nodule, consider an optional follow-up low-dose noncontrast CT of the chest in one year if the patient is at high risk. Gallbladder hydrops, likely secondary to fasting the absence of right upper quadrant pain or biliary labs abnormalities. Innumerable pancreatic cysts, which may represent the sequela of chronic pancreatitis, or less likely the uncommon diagnosis of isolated polycystic pancreatic disease. Correlate for pancreatic enzyme abnormalities and any symptoms of vague abdominal pain. Consider nonemergent MRI of the pancreas if there are abdominal symptoms. Results reported telephonically to Dr. Haque by Dr. Barry at 5:19 PM on 01/12/2025. Abdomen/Pelvis CT 01/15/25 19:18 IMPRESSION: 1. Multiple abscesses seen anterior to the urinary bladder. 2. Thickened wall of the gallbladder suggestive of cystitis. 3. Free fluid seen in the pelvis and paracolic gutters. 4. Left hydronephrotic changes with no definite stones. 5. Constipation. 6. Bilateral pleural effusion with adjacent atelectasis. 7. Large left renal cyst. 8. Polycystic pancreas. 9. Bilateral fat containing inguinal hernias. Chest/Abdomen/Pelvis CT 01/22/25 16:17 IMPRESSION: CHEST: 1. Bilateral large pleural effusion with adjacent atelectasis versus pneumonia 2. Atelectasis versus pneumonia in the lingula.. ABDOMEN/PELVIS: 1. No evidence of appendicitis, diverticulitis or intestinal obstruction. 2. Multiple abscess anterior to the urinary bladder with minimal change since previous examination. Thickened wall of the urinary bladder with possible perforation. 3. Polycystic pancreas. 4. Left hydronephrotic changes and left renal cyst. 5. Constipation. 6. Bilateral inguinal fat containing hernia. 7. Distended gallbladder with no definite stones. Labs Labs: Laboratory Results - last 24 hr 01/26/25 01/26/25 01/27/25 16:54 20:53 06:24 WBC 7.5 RBC 3.05 L Hgb 9.1 L Hct 29.7 L MCV 97.4 MCH 29.8 MCHC 30.6 L RDW 22.7 H Plt Count 260 MPV 9.6 Sodium 145 Potassium 3.5 Chloride 115 H Carbon Dioxide 24 Anion Gap 6 BUN 13 Creatinine 0.55 L Estim Creat Clear Calc 97 Estimated GFR > 60 Glucose 129 H POC Capillary Glucose 138 H 171 H Calcium 9.5 01/27/25 01/27/25 08:01 11:47 WBC RBC Hgb Hct MCV MCH MCHC RDW Plt Count MPV Sodium Potassium Chloride Carbon Dioxide Anion Gap BUN Creatinine Estim Creat Clear Calc Estimated GFR Glucose POC Capillary Glucose 124 H 165 H Calcium Quality VTE Prophylaxis VTE prophylaxis: mechanical ordered and pharmacologic ordered
[2025-01-27] MEDS: DICYCLOMINE HCL 10 MG CAPSULE 20 MG PO (20:52)
[2025-01-27] MEDS: DOXAZOSIN MESYLATE 2 MG TABLET PO (20:52)
[2025-01-27 21:00] VITALS: BP 123/54; PULSE 107; RESP 20; TEMP 35.7; O2SAT 99
[2025-01-28] MEDS: KCL 40 MEQ/0.9% SOD CHL 1,000 ML 100 ML IV CONT ×2 (01:37→12:47)
[2025-01-28] MEDS: AMPICILLIN SODIUM/SULBACTAM 3 GM in SODIUM CHLORIDE 0.9% IV 100 ML 200 ML IVPB ×4 (01:38→17:17)
[2025-01-28] MEDS: HYDROcodone/acetaminophen (*CRX) 5-325 MG TABLET 1 TAB PO ×5 (03:59→19:54)
[2025-01-28 04:30] VITALS: BP 136/69; PULSE 64; RESP 18; TEMP 35.7; O2SAT 100
[2025-01-28] MEDS: LEVOTHYROXINE SODIUM 75 MCG TABLET PO (05:13)
[2025-01-28] MEDS: SIMETHICONE 125 MG CHEW TAB PO ×4 (05:14→19:54)
[2025-01-28] MEDS: METOCLOPRAMIDE HCL INJ 10 MG/2 ML VIAL 5 MG IV PUSH ×4 (05:14→19:54)
[2025-01-28 05:39] LABS: Hematocrit 30.9 % (42.0-52.0); Hemoglobin 9.4 g/dL (14.0-18.0); Mean Corpuscular HGB Conc 30.4 g/dl (32-36); Mean Corpuscular Hemoglobin 29.5 pg (26-34); Mean Corpuscular Volume 96.9 fl (80-100); Platelet Count Result 280 k/mm3 (150-375); Red Blood Count 3.19 M/mm3 (4.6-6.20); White Blood Count 8.0 K/mm3 (4.5-10.0)
[2025-01-28 06:03] LABS: Anion Gap 8 mmol/L (4-12); Blood Urea Nitrogen 12 mg/dL (9-20); Calcium 9.5 mg/dL (8.4-10.2); Carbon Dioxide 23 mmol/L (22-30); Chloride 116 mmol/L (98-107); Estimated CRCL calculation 95 ml/min; Estimated Glomerular Filt Rate > 60; Glucose 135 mg/dL (65-110); Potassium 3.9 mmol/L (3.4-5.0); Sodium 147 mmol/L (137-145)
[2025-01-28 09:26] VITALS: PULSE 133
[2025-01-28] MEDS: PANTOPRAZOLE 40 MG TABLET PO ×2 (09:26→19:54)
[2025-01-28] MEDS: DUTASTERIDE 0.5 MG CAPSULE PO (09:26)
[2025-01-28] MEDS: METOPROLOL SUCCINATE EXT REL 25 MG TABCR PO (09:26)
[2025-01-28] MEDS: DOXYCYCLINE HYCLATE 100 MG TABLET PO ×2 (09:27→19:54)
[2025-01-28] MEDS: ASPIRIN 81 MG ENTERIC TABLET PO (09:28)
[2025-01-28] MEDS: ENOXAPARIN 100 MG/ML SYRINGE 90 MG SUB-Q ×2 (09:29→19:53)
[2025-01-28 09:30] VITALS: O2SAT 100
[2025-01-28] MEDS: FLUTICASONE PROPIONATE 0.05% NA SPR 16 GM BTL (*BKC) 1 SPRAY XX (09:31)
[2025-01-28] MEDS: POTASSIUM CHLORIDE 20 MEQ PACKET (FOR LIQUID) 40 MEQ PO (09:31)
[2025-01-28] MEDS: MICONAZOLE NITRATE 2% CREAM 30 GM TUBE 1 APPLIC TOPICAL (09:32)
--- NOTE | 2025-01-28 12:29 | P.PNIM_ITS ---
Progress Note: A&P Assessment and Plan (1) Pulmonary embolism: Qualifiers: Acute cor pulmonale presence: with acute cor pulmonale Chronicity: acute Pulmonary embolism type: unspecified Qualified Code(s): I26.09 - Other pulmonary embolism with acute cor pulmonale Code(s): I26.99 - Other pulmonary embolism without acute cor pulmonale Status: Acute Assessment and Plan: ACTIVE, improved, monitoring Right heart strain on CT 01/15. Recent diagnosis of DVT at [facility], was on Eliquis. Not requiring oxygen. Tachycardia resolved. DNR/DNI. Spoke with his daughter and his at the bedside and the patient 01/18 TTE no evidence of heart strain -On a heparin drip from 01/15-01/19 for concern for bleeding. Hgb has ranged from 7.1-8.1 the last couple days Acute drop on 01/14 (7.9>5.4 and received 2 unit PRBC's) No report of acute blood loss or melena. -Changed to Lovenox 01/19 Hb has been stable Spoke with family members daily ( and daughter) and aggressive interventions not goals of care. Declined option for transfer to higher acuity, but that is appropriate because goals of care primarily palliative with limited interventions. Giving blood for Hgb <7 Discharge tomorrow to facility hospice (2) Abdominal abscess: Status: Acute Assessment and Plan: ACTIVE, acute Recent bladder rupture, treated at [facility]. CT abd/pelvis at OSH 01/08 showed evolving sequelae of extraperitoneal bladder rupture within an capsulated mixed gas-fluid collection in the space Retzius and fluid component of which is decreased in size compared to prior examination in continuity with the anterior urinary bladder wall defect fluid directing subjacent to the rectus abdominus musculature no new organized or drainable fluid collection to partially imaged subsegmental bilateral pulmonary emboli as previously seen on the prior CT from 12/27 had been treated with Zosyn, Flagyl and Vanc, then cefepime and Vanc. Was seen by ID at OSH. DC'd cefepime and vanc & started linezolid on 01/03 and completed 4 weeks of treatment of MRSA bacteremia -Spoke with family and not pursuing surgical options given comorbidities -Suspect suprapubic pain 2/2 abscess and suspect generalized pain related to abdominal distention so started simethicone and bentyl prn --01/15 Started empiric Cefepime, Flagyl. Changed zyvox to doxycycline for thrombocytopenia. Repeat CT CAP in about a week (01/22) to monitor abscess on current antibiotics before deciding end date. Consider a 3 week course and outpatient ID follow up at the [facility] ID clinic if improving [phone] --Pain control: Tylenol, Oxly, Dilaudid prn. Ideally would limit opiates for gastric distention/bloating but will continue for abdominal abscess/recent bladder perforation --Follow daily CBC. Weekly CRP & ESR --Do not remove Nuñez except with urology consultation. No acute indication for urology consultation because no plan for interventions at this point CT CAP 01/15 1. Multiple abscesses seen anterior to the urinary bladder. 2. Thickened wall of the gallbladder suggestive of cystitis. 3. Free fluid seen in the pelvis and paracolic gutters. 4. Left hydronephrotic changes with no definite stones. 5. Constipation. 6. Bilateral pleural effusion with adjacent atelectasis. 7. Large left renal cyst. 8. Polycystic pancreas. 9. Bilateral fat containing inguinal hernias. CT 01/22/25 Multiple abscess anterior to the urinary bladder with minimal change since previous examination. Thickened wall of the urinary bladder with possible perforation 01/27/25 discussed with his family at bedside. no invasive intervention. plan to discharge to hospice (3) Abdominal pain: Qualifiers: Abdominal location: generalized Qualified Code(s): R10.84 - Generalized abdominal pain Code(s): R10.9 - Unspecified abdominal pain Status: Acute Assessment and Plan: Overall improved but more abdominal pain intermittently. Abdominal hyperactive. Had a BM. eating better. --Tylenol, Vicodin, --Schedule simethicone and bentyl prn for abdominal cramping (4) Acute on chronic anemia: Code(s): D64.9 - Anemia, unspecified Status: Acute Assessment and Plan: ACTIVE, stable monitoring Acute, Blood count was trending down on heparin drip, s/p 2 units of PRBC's 01/14. Concern for acute GI bleeding but never had melena. Not planning intervention per discussion with family. No plan for scope. No report of hematoma on CT, but was not a CT angio --Follow blood count and transfuse as able for Hgb <7 --Blood count has been stable for several days --No report of melena 01/27/25 Hb stable/improving/ no bleeding reported (5) MRSA bacteremia: Code(s): R78.81 - Bacteremia; B95.62 - Methicillin resistant Staphylococcus aureus infection as the cause of diseases classified elsewhere Status: Acute Assessment and Plan: Recently treated for MRSA bacteremia, completed 01/13. TTE 01/03 no vegetations. Also treated for sacral pyoderma gangrenosum. Was seen by dermatology and recently completed a steroid taper --Follow up Blood cultures x2 01/15 No growth to date --Follow WBC, ESR, CRP, temps --Currently taking Cefepime IV, Flagyl and Doxy. Abx changed to Unasyn. discussed with Pharmacy team. (6) Sacral decubitus ulcer: Code(s): L89.159 - Pressure ulcer of sacral region, unspecified stage Status: Acute Assessment and Plan: -Wound care following. Recently treated with a course of steroids at the outside hospital per Dermatology recs for pyoderma gangrenosum -treating topical steroid spray and avoiding systemic steroids given infection (7) Thrombocytopenia: Code(s): D69.6 - Thrombocytopenia, unspecified Status: Acute Assessment and Plan: ACTIVE, stable, monitoring -Plt count 81-117 during admission. Up to 100. Recently on 4 weeks of linezolid which can cause pancytopenia, so changed to an alternate medication. Was stable on heparin drip. -patient now on lovenox -monitor CBC (8) Severe malnutrition: Code(s): E43 - Unspecified severe protein-calorie malnutrition Status: Acute Assessment and Plan: Supplements per dietitian (9) Electrolyte abnormality: Code(s): E87.8 - Other disorders of electrolyte and fluid balance, not elsewhere classified Status: Acute Assessment and Plan: ACTIVE 01/15 Potassium 3.1, Phos 1.9. 20meq Kcl, 15mmol kphos, and 250 kphos tabs BID x2 doses, 40meq IV 01/16 Potassium 3.1, 40meq x2. Mag 1.8 s/p 2G IV mag today. Phos 1.8, 20mmol 01/17-01/18 Potassium 3.2 40meq IV repeat 3.6 20meq IV today 01/19 Potassium 3.2. Schedule potassium 10 TID x2 days has low potassium will give po potassium --Follow potassium, mag, and phos --Has a poor appetite, eating bites --DC'd tele since no CPR 01/25/25 patient can not tolerate IV potassium, continue with Po potassium 01/26 still has low potassium. will give IV K 01/27 potassium improving (10) Type 2 diabetes mellitus with hyperglycemia: Qualifiers: Diabetes mellitus long-term insulin use: without long-term use Qualified Code(s): E11.65 - Type 2 diabetes mellitus with hyperglycemia Code(s): E11.65 - Type 2 diabetes mellitus with hyperglycemia Status: Chronic Assessment and Plan: MONITORING Blood sugars --SSI prn (11) Constipation: Code(s): K59.00 - Constipation, unspecified Status: Acute Assessment and Plan: RESOLVED Personally reviewed CT and constipation visible. Had multiple BM's 01/16 --Continue miralax daily, (12) Lactic acidosis: Code(s): E87.20 - Acidosis, unspecified Status: Acute Assessment and Plan: RESOLVED significant lactic acidosis likely due to a combination of factors id metformin use,, decreased perfusion and or some hepatic dysfunction. The patient did have lactic acidosis during his last hospitalization that did not completely normalize. Lactic acid is definitely higher than prior values but this is in the setting of acute PE. Metformin is on hold. Patient's lactic acid did improve after 1 L fluid bolus. (13) Goals of care, counseling/discussion: Code(s): Z71.89 - Other specified counseling Status: Acute Assessment and Plan: ACTIVE DNR/DNI Plan Next of Kin, Vianney Moralez [phone] MEDICAL DECISION MAKING NARRATIVE -Patient seen and examined at bedside -Collaborated with patient's nurse and family at the bedside in detail and addressed all concerns -Labs, electrolytes, radiology, investigations and test results reviewed -ED/Consult/Nursing/Ancilliary notes on the chart reviewed and appreciated Patient has been admitted as observation status awaiting placement to facility hospice Subjective Date/time seen: 01/28/25 12:29 Interval history: Comfortable at bedside Review of Systems Review of Systems: Review of systems unobtainable due to patient's dementia Exam Narrative: GENERAL: Comfortable, no acute distress HENMT: moist mucous membranes RESPIRATORY: clear to auscultation, no increased respiratory effort CARDIO: Regular rate and rhythm GI: soft, bowel sounds present, tenderness to palpation in all 4 quadrants SKIN/EXTREMITIES: no rashes, no edema, no redness or tenderness, muscle wasting NEURO: answers questions appropriately, A&O x4 Const: Other: Acutely ill-appearing, debilitated, deconditioned HENMT: Other: Mucous membranes are dry, no oral pharyngeal erythema, crowded posterior darian pharynx Eyes: Other: Marked conjunctival pallor, no scleral icterus, bilateral lens implants noted Neck: Other: No JVD, no lymphadenopathy Resp: Other: shallow respirations, no increased work of breathing Cardio: Other: Irregularly irregular, rate controlled, 2+ bilateral radial and pedal pulses GI: Other: Soft, slightly distended, nontender, hypoactive bowel sounds : Other: Nuñez catheter in place with clear yellow urine, scrotal edema Skin: Other: Generalized pallor, non jaundice, he numerous scattered superficial hematomas Neuro: Other: Patient is alert oriented to person and the fact that he is in the hospital, no localizing neurologic deficits noted but exam limited Extrem: Other: bilateral lower ext trace 1+edema Psych: Other: cooperative, normal judgment and insight Objective Data Vital Signs Vital Signs: Vital Signs - 24 hr 01/27/25 13:51 01/27/25 21:00 01/28/25 04:30 Temperature 97.0 F L 96.3 F L 96.3 F L Pulse Rate 104 H 107 H 64 Respiratory Rate 16 20 18 Blood Pressure 131/60 123/54 L 136/69 Pulse Oximetry 100 99 100 01/28/25 09:26 Temperature Pulse Rate 133 H Respiratory Rate Blood Pressure Pulse Oximetry Intake/Output Intake/Output: Intake & Output 01/25/25 01/26/25 01/27/25 01/28/25 23:59 23:59 23:59 23:59 Intake Total 1480 2620 2722 1838.3 Output Total 1600 2250 3075 1850 Balance -120 370 -353 -11.7 Meds/Results Medications: Active Medications Generic Name Dose Route Start Last Admin Trade Name Freq PRN Reason Stop Dose Admin Acetaminophen 650 mg 01/12/25 21:07 01/25/25 23:19 Acetaminophen 325 Mg Tablet PO 650 mg Q6H PRN Administration pain 1-3 or fever Hydrocodone Bitart/Acetaminophen 1 tab 01/13/25 09:00 01/28/25 09:27 Hydrocodone/Acetaminophen (*Crx) 5-325 Mg Tablet PO 1 tab Q6H NEHEMIAH Administration Hydrocodone Bitart/Acetaminophen 1 tab 01/26/25 10:26 01/28/25 06:54 Hydrocodone/Acetaminophen (*Crx) 5-325 Mg Tablet PO 1 tab Q6H PRN Administration Pain Rated 4-6 Aspirin 81 mg 01/13/25 09:00 01/28/25 09:28 Aspirin 81 Mg Enteric Tablet PO 81 mg DAILY NEHEMIAH Administration Bisacodyl 10 mg 01/17/25 21:00 01/27/25 20:53 Bisacodyl 10 Mg Suppository RECTAL Not Given [facility] Calcium Carbonate 500 mg 01/17/25 12:00 01/27/25 11:55 Calcium/Vitamin D 500 Mg/5 Mcg (200 I.U.) Tablet PO 500 mg DAILY@1200 [facility] Administration Dextrose 12.5 gm 01/13/25 02:29 Dextrose 50% 25 Gm/50 Ml Syringe IV PUSH PRN PRN Hypoglycemia Protocol Dibucaine 1 applic 01/12/25 21:07 01/17/25 21:13 Dibucaine 1% Ointment 30 Gm Tube TOPICAL 1 applic QID PRN Administration Pain of groin ulcer Dicyclomine HCl 20 mg 01/18/25 12:32 01/27/25 20:52 Dicyclomine Hcl 10 Mg Capsule PO 20 mg QID PRN Administration Abdominal Cramping Donepezil HCl 5 mg 01/12/25 21:10 01/27/25 20:52 Donepezil Hcl 5 Mg Tablet PO 5 mg QHS NEHEMIAH Administration Doxazosin Mesylate 2 mg 01/12/25 21:25 01/27/25 20:52 Doxazosin Mesylate 2 Mg Tablet PO 2 mg QHS [facility] Administration Doxycycline Hyclate 100 mg 01/17/25 09:00 01/28/25 09:27 Doxycycline Hyclate 100 Mg Tablet PO 100 mg Q12HR NEHEMIAH Administration Dutasteride 0.5 mg 01/13/25 09:00 01/28/25 09:26 Dutasteride 0.5 Mg Capsule PO 0.5 mg DAILY NEHEMIAH Administration Enoxaparin Sodium 90 mg 01/19/25 09:00 01/28/25 09:29 Enoxaparin 100 Mg/Ml Syringe SUB-Q 90 mg Q12HR NEHEMIAH Administration Fluticasone Propionate 1 spray 01/15/25 21:00 01/28/25 09:31 Fluticasone Propionate 0.05% Na Spr 16 Gm Btl (*Bkc) XX 1 spray Q12H NEHEMIAH Administration Fluticasone Propionate 1 spray 01/18/25 10:04 Fluticasone Propionate 0.05% Na Spr 16 Gm Btl (*Bkc) NASAL Q12HR PRN allergy symptoms Glucagon 1 mg 01/13/25 02:29 Glucagon For Inj 1 Mg Vial IM PRN PRN Hypoglycemia Protocol Glucose 15 gm 01/13/25 02:29 Glucose Oral Gel 15 Gm Of Glucse In 37.5 Gm Tube PO PRN PRN Hypoglycemia Protocol Dextrose 1,000 mls @ 100 mls/hr 01/13/25 02:29 Dextrose 5% 1,000 Ml IVPB PRN PRN Hypoglycemia Protocol Albumin Human 200 mls @ 60 mls/hr 01/16/25 01:00 01/19/25 01:10 Albutein IVPB 60 mls/hr Q8H NEHEMIAH Administration Ampicillin Sodium/Sulbactam 100 mls @ 200 mls/hr 01/23/25 12:00 01/28/25 05:44 Sodium 3 gm/ Sodium Chloride IVPB Infused Q6H NEHEMIAH Infusion Potassium Chloride/Sodium Chloride 1,000 mls @ 100 mls/hr 01/26/25 07:15 01/28/25 01:37 Kcl 40 Meq/Ns IV CONT 100 mls/hr .Q10H NEHEMIAH Administration Insulin Aspart 2 - 5 units 01/13/25 08:00 01/28/25 12:17 Insulin Aspart (*Bkc) 100 Units/Ml SUB-Q Not Given TIDWM NEHEMIAH Protocol Levothyroxine Sodium 75 mcg 01/13/25 06:30 01/28/25 05:13 Levothyroxine Sodium 75 Mcg Tablet PO 75 mcg DAILY@0630 NEHEMIAH Administration Metoclopramide HCl 5 mg 01/17/25 16:30 01/28/25 05:14 Metoclopramide Hcl Inj 10 Mg/2 Ml Vial IV PUSH 5 mg TIDAC NEHEMIAH Administration Metoprolol Succinate 25 mg 01/13/25 09:00 01/28/25 09:26 Metoprolol Succinate Ext Rel 25 Mg Tabcr PO 25 mg DAILY NEHEMIAH Administration Miconazole Nitrate 1 applic 01/13/25 09:00 01/28/25 09:32 Miconazole Nitrate 2% Cream 30 Gm Tube TOPICAL 1 applic Q12HR NEHEMIAH Administration Pantoprazole Sodium 40 mg 01/17/25 21:00 01/28/25 09:26 Pantoprazole 40 Mg Tablet PO 40 mg Q12HR NEHEMIAH Administration Potassium Chloride 40 meq 01/24/25 09:00 01/28/25 12:15 Potassium Chloride 20 Meq Packet (For Liquid) PO Not Given TID NEHEMIAH Senna/Docusate Sodium 2 tab 01/13/25 09:00 01/28/25 09:29 Senna/Docusate Sodium Tablet PO Not Given Q12HR NEHEMIAH Simethicone 125 mg 01/18/25 16:30 01/28/25 05:14 Simethicone 125 Mg Chew Tab PO 125 mg ACHS NEHEMIAH Administration Radiology Results: ITS Impressions Chest CTA 01/12/25 16:59 IMPRESSION: Multiple pulmonary emboli, large clot burden, and evidence of right heart strain. Trace right and small left pleural effusions. 4 mm right upper lobe pulmonary nodule, consider an optional follow-up low-dose noncontrast CT of the chest in one year if the patient is at high risk. Gallbladder hydrops, likely secondary to fasting the absence of right upper quadrant pain or biliary labs abnormalities. Innumerable pancreatic cysts, which may represent the sequela of chronic pancreatitis, or less likely the uncommon diagnosis of isolated polycystic pancreatic disease. Correlate for pancreatic enzyme abnormalities and any symptoms of vague abdominal pain. Consider nonemergent MRI of the pancreas if there are abdominal symptoms. Results reported telephonically to Dr. Haque by Dr. Barry at 5:19 PM on 01/12/2025. Abdomen/Pelvis CT 01/15/25 19:18 IMPRESSION: 1. Multiple abscesses seen anterior to the urinary bladder. 2. Thickened wall of the gallbladder suggestive of cystitis. 3. Free fluid seen in the pelvis and paracolic gutters. 4. Left hydronephrotic changes with no definite stones. 5. Constipation. 6. Bilateral pleural effusion with adjacent atelectasis. 7. Large left renal cyst. 8. Polycystic pancreas. 9. Bilateral fat containing inguinal hernias. Chest/Abdomen/Pelvis CT 01/22/25 16:17 IMPRESSION: CHEST: 1. Bilateral large pleural effusion with adjacent atelectasis versus pneumonia 2. Atelectasis versus pneumonia in the lingula.. ABDOMEN/PELVIS: 1. No evidence of appendicitis, diverticulitis or intestinal obstruction. 2. Multiple abscess anterior to the urinary bladder with minimal change since previous examination. Thickened wall of the urinary bladder with possible perforation. 3. Polycystic pancreas. 4. Left hydronephrotic changes and left renal cyst. 5. Constipation. 6. Bilateral inguinal fat containing hernia. 7. Distended gallbladder with no definite stones. Labs Labs: Laboratory Results - last 24 hr 01/27/25 01/27/25 01/28/25 16:35 21:05 05:28 WBC 8.0 RBC 3.19 L Hgb 9.4 L Hct 30.9 L MCV 96.9 MCH 29.5 MCHC 30.4 L RDW 22.5 H Plt Count 280 MPV 9.8 Sodium 147 H Potassium 3.9 Chloride 116 H Carbon Dioxide 23 Anion Gap 8 BUN 12 Creatinine 0.56 L Estim Creat Clear Calc 95 Estimated GFR > 60 Glucose 135 H POC Capillary Glucose 165 H 155 H Calcium 9.5 01/28/25 01/28/25 07:35 11:32 WBC RBC Hgb Hct MCV MCH MCHC RDW Plt Count MPV Sodium Potassium Chloride Carbon Dioxide Anion Gap BUN Creatinine Estim Creat Clear Calc Estimated GFR Glucose POC Capillary Glucose 129 H 187 H Calcium Quality VTE Prophylaxis VTE prophylaxis: mechanical ordered and pharmacologic ordered
[2025-01-28] MEDS: CALCIUM/VITAMIN D 500 MG/5 MCG (200 I.U.) TABLET PO (12:48)
[2025-01-28 14:00] VITALS: BP 120/73; PULSE 115; RESP 20; TEMP 36.8; O2SAT 98
[2025-01-28 19:19] LABS: Toxigenic C. Diff NEGATIVE (NEGATIVE)
[2025-01-28] MEDS: DONEPEZIL HCL 5 MG TABLET PO (19:54)
[2025-01-28] MEDS: DICYCLOMINE HCL 10 MG CAPSULE 20 MG PO (19:54)
[2025-01-28] MEDS: DOXAZOSIN MESYLATE 2 MG TABLET PO (19:54)
[2025-01-28 22:00] VITALS: BP 122/77; PULSE 110; RESP 20; TEMP 36.7; O2SAT 98
[2025-01-29] MEDS: AMPICILLIN SODIUM/SULBACTAM 3 GM in SODIUM CHLORIDE 0.9% IV 100 ML 200 ML IVPB ×3 (00:13→12:07)
[2025-01-29] MEDS: KCL 40 MEQ/0.9% SOD CHL 1,000 ML 100 ML IV CONT ×2 (00:14→08:25)
[2025-01-29] MEDS: MICONAZOLE NITRATE 2% CREAM 30 GM TUBE 1 APPLIC TOPICAL ×2 (00:21→08:13)
[2025-01-29] MEDS: FLUTICASONE PROPIONATE 0.05% NA SPR 16 GM BTL (*BKC) 1 SPRAY XX ×2 (00:21→08:13)
[2025-01-29] MEDS: HYDROcodone/acetaminophen (*CRX) 5-325 MG TABLET 1 TAB PO ×3 (03:02→13:06)
[2025-01-29] MEDS: LEVOTHYROXINE SODIUM 75 MCG TABLET PO (05:13)
[2025-01-29 06:00] VITALS: BP 116/55; PULSE 99; RESP 18; TEMP 36.8; O2SAT 98
[2025-01-29] MEDS: ACETAMINOPHEN 325 MG TABLET 650 MG PO (06:50)
[2025-01-29] MEDS: ENOXAPARIN 100 MG/ML SYRINGE 90 MG SUB-Q (08:10)
[2025-01-29] MEDS: POTASSIUM CHLORIDE 20 MEQ PACKET (FOR LIQUID) 40 MEQ PO ×2 (08:10→12:07)
[2025-01-29] MEDS: PANTOPRAZOLE 40 MG TABLET PO (08:11)
[2025-01-29] MEDS: DOXYCYCLINE HYCLATE 100 MG TABLET PO (08:11)
[2025-01-29] MEDS: DUTASTERIDE 0.5 MG CAPSULE PO (08:11)
[2025-01-29] MEDS: ASPIRIN 81 MG ENTERIC TABLET PO (08:11)
[2025-01-29 08:12] VITALS: PULSE 125
[2025-01-29] MEDS: METOPROLOL SUCCINATE EXT REL 25 MG TABCR PO (08:12)
--- NOTE | 2025-01-29 09:53 | PM.DS ---
DS: Admitting Diagnosis Discharge Date 01/29/25 Admitting Diagnosis chest pain DS: Discharge Diagnosis Discharge Diagnosis (1) Pulmonary embolism: Qualifiers: Acute cor pulmonale presence: with acute cor pulmonale Chronicity: acute Pulmonary embolism type: unspecified Qualified Code(s): I26.09 - Other pulmonary embolism with acute cor pulmonale Code(s): I26.99 - Other pulmonary embolism without acute cor pulmonale Status: Acute DS: Summary Hospital Course Hospital Course: The patient, an 84-year-old male with a complex medical history including dementia, essential hypertension, hypothyroidism, type 2 diabetes mellitus, pyoderma gangrenosum, and urethral cell carcinoma, was admitted from [facility] with chest pain. Initial evaluation revealed multiple pulmonary emboli with right heart strain, acute on chronic anemia, and lactic acidosis. The patient was treated with a heparin drip, later transitioned to Lovenox, and received blood transfusions for anemia. Hb and Plts continued to be stable. Patient discharged on Eliquis. The abdominal abscess, secondary to a recent bladder rupture, was managed with antibiotics including Cefepime, Flagyl, and Doxycycline. Pain management included Tylenol, Lonepine, and Dilaudid, with efforts to minimize opioid use due to gastric distention concerns. The patient's MRSA bacteremia was treated with a 4-week course of antibiotics which was completed on 01/13/25, and follow-up blood cultures showed no growth. Thrombocytopenia was monitored, with platelet counts stabilizing after discontinuation of linezolid. Severe malnutrition was addressed with dietary supplements, and electrolyte imbalances were managed with oral and IV replacements. The patient's type 2 diabetes was monitored with sliding scale insulin as needed. Constipation resolved with Miralax, and lactic acidosis improved with fluid resuscitation and holding metformin. Throughout the hospitalization, the patient's family was actively involved in care discussions, emphasizing palliative goals and declining invasive interventions. The patient was DNR/DNI, and the decision was made to transition to hospice care. Patient discharged today to hospice care facility. F/u with PCP and hospice care as scheduled. Time Spent with Patient Time attestation: Total time spent providing and/or coordinating discharge services: DS: Data Data Completed and Pending Labs on day of discharge: Labs from last 24 hours 01/29/25 01/28/25 01/28/25 07:51 21:14 18:26 POC Capillary Glucose 138 H 192 H C. difficile (PCR) Negative 01/28/25 01/28/25 16:46 11:32 POC Capillary Glucose 178 H 187 H C. difficile (PCR) Discharge Plan Discharge Attending physician on discharge: Mahogany Fraire Consulting providers: Kiara Fox; Mark King Discharging Clinician: Mahogany Fraire Anticipated Discharge Date/Time: 01/29/25 09:49 Patient Disposition: Hospice - Medical Facility Activity: as tolerated Diet: as tolerated and regular Discharge Instructions: F/u with hospice as scheduled Patient Language: Lithuanian Stand Alone Forms: General Discharge Information Follow-up/Referrals: Willard Gilbert MD [Primary Care Provider] - (F/u with PCP in 3-5 days ) Discharge Medications: Continued nitroglycerin 0.4 mg tablet, sublingual 0.4 mg SUBLINGUAL Q5M PRN (Reason: chest pain) Qty: 25 0RF Rx Instructions: until response; do not exceed 3 doses per episode aspirin [Adult Low Dose Aspirin] 81 mg tablet,delayed release (DR/EC) 81 mg PO DAILY bacitracin 500 unit/gram ointment 1 applic topical BID Patient Comments: from operations staff specialist security dibucaine 1 % ointment 1 applic topical QID PRN (Reason: Pain of groin ulcer) Patient Comments: from operations staff specialist security ibuprofen 400 mg tablet 600 mg PO Q6H PRN (Reason: pain) oxycodone 5 mg tablet 5 mg PO Q6H PRN (Reason: pain) pantoprazole 40 mg tablet,delayed release (DR/EC) 40 mg PO QAM acetaminophen 325 mg capsule 650 mg PO Q6H PRN (Reason: pain) Eliquis 5 mg tablet 5 mg PO Q12H fluticasone propionate [24 Hour Allergy Relief] 50 mcg/actuation spray,suspension 1 spray intranasal Q12H PRN (Reason: allergy symptoms) Rx Instructions: administer into each nostril polyethylene glycol 3350 [ClearLax] 17 gram/dose powder 17 g PO DAILY PRN (Reason: constipation) linezolid 600 mg tablet 600 mg PO Q12H Patient Comments: last dose 01/14/25 insulin lispro [Humalog U-100 Insulin] 100 unit/mL solution 3 unit subcut .meals Patient Comments: 3 units with meals calcium carbonate-vitamin D3 [Calcium 500 + D] 500 mg-5 mcg (200 unit) tablet 1 tablet PO DAILY sennosides-docusate sodium [Colace 2-In-1] 8.6-50 mg tablet 2 tab-cap PO BID metoprolol succinate 50 mg tablet extended release 24 hr 25 mg PO DAILY nystatin 100,000 unit/gram cream 1 applic topical BID Qty: 30 0RF doxazosin 2 mg tablet See Rx Instructions .ROUTE .COMPLEX Qty: 90 1RF Dose Instruction: TAKE 1 TABLET BY MOUTH EVERY DAY AT BEDTIME Rx Instructions: TAKE 1 TABLET BY MOUTH EVERY DAY AT BEDTIME metformin 500 mg tablet extended release 24 hr See Rx Instructions .ROUTE .COMPLEX Qty: 360 0RF Dose Instruction: TAKE 4 TABLETS BY MOUTH ONCE DAILY IN THE MORNING Rx Instructions: TAKE 4 TABLETS BY MOUTH ONCE DAILY IN THE MORNING rosuvastatin 40 mg tablet 40 mg PO DAILY Qty: 90 3RF dutasteride 0.5 mg capsule 0.5 mg PO DAILY Qty: 90 0RF levothyroxine 75 mcg tablet 75 mcg PO DAILY Qty: 90 1RF fluticasone propionate [Flonase Allergy Relief] 50 mcg/actuation spray,suspension 1 spray intranasal DAILY Qty: 16 0RF Rx Instructions: administer to wound daily oxybutynin chloride 10 mg tablet extended release 24hr 10 mg PO DAILY Qty: 90 3RF donepezil [Aricept] 5 mg tablet 5 mg PO QHS Qty: 30 3RF Date of admission: 01/13/25 17:50 Primary Care Provider: Willard Gilbert Admitting Provider: Karthik Grey Attending physician on admission: Karthik Grey Condition: Stable
[2025-01-29] MEDS: SIMETHICONE 125 MG CHEW TAB PO (11:09)
[2025-01-29] MEDS: CALCIUM/VITAMIN D 500 MG/5 MCG (200 I.U.) TABLET PO (11:09)
[2025-01-29] MEDS: METOCLOPRAMIDE HCL INJ 10 MG/2 ML VIAL 5 MG IV PUSH (11:10)
[2025-01-29 11:12] LABS: Influenza A QL RT-PCR Negative (Negative); Influenza B QL RT-PCR Negative (Negative); RSV RNA, RT-PCR Negative (Negative); SARS-CoV-2 RNA PCR Negative (Negative)
== END 2025-01-29 13:16 | disposition hospice, inpatient (51) | DRG 175 ==
LOC: ANHED 17:37 → ANH3MEDSUR 18:37
PROVIDERS: General Practice; Internal Medicine; Internal Medicine Critical Care Medicine; Nurse Practitioner Acute Care; Nurse Practitioner Gerontology; Admitting Provider Internal Medicine; Emergency Provider Emergency Medicine; PCP Family Medicine; Visit Provider Internal Medicine
DX: I26.09 Other pulmonary embolism with acute cor pulmonale (principal); K65.1 Peritoneal abscess; E43 Unspecified severe protein-calorie malnutrition; L88 Pyoderma gangrenosum; E87.20 Acidosis, unspecified; D62 Acute posthemorrhagic anemia; I47.20 Ventricular tachycardia, unspecified; C67.9 Malignant neoplasm of bladder, unspecified; I10 Essential (primary) hypertension; E03.9 Hypothyroidism, unspecified; F03.90 Unspecified dementia, unspecified severity, without behavioral disturbance, psychotic disturbance, mood disturbance, and anxiety; D64.9 Anemia, unspecified; E87.6 Hypokalemia; N32.89 Other specified disorders of bladder; E83.39 Other disorders of phosphorus metabolism; D69.6 Thrombocytopenia, unspecified; E11.65 Type 2 diabetes mellitus with hyperglycemia; K59.00 Constipation, unspecified; L89.159 Pressure ulcer of sacral region, unspecified stage; Z11.52 Encounter for screening for COVID-19; Z79.01 Long term (current) use of anticoagulants; Z86.718 Personal history of other venous thrombosis and embolism; Z87.891 Personal history of nicotine dependence; Z95.5 Presence of coronary angioplasty implant and graft; Z79.52 Long term (current) use of systemic steroids; Z95.1 Presence of aortocoronary bypass graft; Z79.4 Long term (current) use of insulin; Z79.82 Long term (current) use of aspirin; Z79.84 Long term (current) use of oral hypoglycemic drugs
CPT/HCPCS: 36415; 36430; 71260; 71275; 74177; 80048; 80053; 81001; 82607; 82728; 82948; 83010; 83540; 83550; 83605; 83615; 83735; 83880; 84100; 84484; 85025; 85027; 85046; 85055; 85610; 85652; 85730; 86140; 86850; 86900; 86901; 86923; 87040; 87086; 87493; 87637; 93306; 96361; 96365; 96375; 97110; 97162; 97166; 97530; 97535; 99212; 99285; A9270; G0378; G0463; J0295; J0692; J0696; J1644; J1650; J1836; J2020; J2270; J2470; J2765; J3475; J3480; J7030; J7040; J7050; J7060; P9016; P9047; Q9967